=== PATIENT | male | born 1950 | race Caucasian/White ===

== ENCOUNTER → 2017-06-16 13:30 | Outpatient (CLI) | payer MEDICARE, OTHER, SELFPAY | PROVIDERS: Family Provider Surgery; Visit Provider Surgery | DX: Z45.2 Encounter for adjustment and management of vascular access device (principal); E11.621 Type 2 diabetes mellitus with foot ulcer; L97.413 Non-pressure chronic ulcer of right heel and midfoot with necrosis of muscle; Z87.828 Personal history of other (healed) physical injury and trauma; G82.50 Quadriplegia, unspecified; G47.33 Obstructive sleep apnea (adult) (pediatric); I10 Essential (primary) hypertension; Z87.440 Personal history of urinary (tract) infections; Z86.14 Personal history of Methicillin resistant Staphylococcus aureus infection; M86.68 Other chronic osteomyelitis, other site; Z79.899 Other long term (current) drug therapy | CPT/HCPCS: 11043; 96523 ==

== ENCOUNTER 2017-06-16 14:00 | Outpatient (RCR) | payer MEDICARE, OTHER, SELFPAY ==
[2017-06-09 13:46] VITALS: BP 101/70; PULSE 66; RESP 18; TEMP 36.1; BMI 26.6
--- NOTE | 2017-06-10 14:14 | PCM.WC.HP ---
(1) Diabetic ulcer of right foot Status: Acute Current Visit: Yes Qualifiers: Diabetic foot ulcer location: heel Diabetes mellitus type: type 2 Non-pressure ulcer stage: with muscle involvement without evidence of necrosis Qualified Code(s): E11.621 - Type 2 diabetes mellitus with foot ulcer; L97.415 - Non-pressure chronic ulcer of right heel and midfoot with muscle involvement without evidence of necrosis Code(s): E11.621 - Type 2 diabetes mellitus with foot ulcer; L97.519 - Non-pressure chronic ulcer of other part of right foot with unspecified severity (2) Suspected deep tissue injury of unknown depth of heel Status: Acute Current Visit: Yes Code(s): R68.89 - Other general symptoms and signs (3) History of spinal cord injury Status: Acute Current Visit: Yes Code(s): Z87.828 - Personal history of other (healed) physical injury and trauma (4) Chronic incomplete quadriplegia Status: Acute Current Visit: Yes Code(s): G82.50 - Quadriplegia, unspecified (5) Diabetes mellitus Status: Acute Current Visit: Yes Qualifiers: Diabetes mellitus type: type 2 Code(s): E11.9 - Type 2 diabetes mellitus without complications Comment: diet control, new diagnosis (6) KAROLINA treated with BiPAP Status: Acute Current Visit: No Code(s): G47.33 - Obstructive sleep apnea (adult) (pediatric) (7) History of methicillin resistant Staphylococcus aureus infection Status: Chronic Current Visit: Yes Code(s): Z86.14 - Personal history of Methicillin resistant Staphylococcus aureus infection Comment: Z86.14 (8) Hypertension Status: Chronic Current Visit: No Code(s): I10 - Essential (primary) hypertension (9) Obesity Status: Chronic Current Visit: Yes Code(s): E66.9 - Obesity, unspecified History of Present Illness Date of Service: 06/09/17 Chief Complaint: Ulcer on right heel, purple area left heel History of Wound: This is a 67-year-old white male who presents to the wound care center today for evaluation of a right heel ulcer and left heel discoloration. He has a past medical history as described above. The patient states that on the night of 06/06/2017, his heel protectors came off all night in bed and shortly after he noted an ulceration on his right heel and a purplish discoloration on his left heel. He states that there has been yellow drainage coming from his right heel and that yesterday he started using Granulex and Aquacel silver on the right heel. He denies any pain or foul-smelling discharge, however he does state that he has decreased sensation to his lower extremities due to his history of a spinal cord injury in high school. He currently has a suprapubic catheter as well due to his history of recurrent UTIs and obstructive uropathy. He also notes that his low air loss hospital bed is needing to be repaired so he is unable to use this at this time. The patient does state that he has a history of ulcerations on his right heel in the past where he had to be seen at a wound care center and ended up needing to have skin substitutes applied. He does note that he lives home alone and that he receives home health throughout the week. He otherwise denies any signs of systemic infection and denies any fever, chills, nausea, vomiting, chest pain or pressure, syncope or presyncopal episodes. 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) L89.324 recurrent left ischial/trochanteric pressure sore, Stage IV Other chronic osteomyelitis, other site (Chronic) M86.68 History of methicillin resistant Staphylococcus aureus infection (Chronic) Z86.14 Mild protein-calorie malnutrition (Chronic) malnutrition, mild, unspecified Non-pressure chronic ulcer of buttock (Chronic) nonhealing ulcer left perianal area after a myocutaneous flap 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) nonhealing ulcer left trochanteric area after a myocutaneous flap Surgical History: TURP, - - Urethral stent, diverting colostomy (1999), cervical spinal fusion (1966), plastic surgery for pressure ulceration left trochanteric area Allergies/Adverse Reactions: Allergies Penicillins Allergy (Verified 11/22/16 19:04) Hives pentazocine lactate [From Talwin] Adverse Reaction (Unknown, Verified 11/22/16 19:04) Other loopy bethanechol chloride [From Urecholine] Adverse Reaction (Verified 11/22/16 19:04) Other bladder clamped down had opposite reaction of what was expected fish derived Adverse Reaction (Verified 11/22/16 19:04) Nausea SEAFOOD Adverse Reaction (Uncoded 11/22/16 19:05) Vomiting Home Medications: Ambulatory Orders Medication Instructions Recorded Multivitamins,Therapeutic 1 tablet PO DAILY 02/04/14 [Multivitamin] Albuterol Aerosols [Ventolin 2.5 mg INHALATION Q4H PRN PRN 07/02/14 Aerosols] Cholecalciferol (VIT D3) [Vitamin 1,000 unit PO DAILY 07/02/14 D3] Hydrochlorothiazide [Hctz] 25 mg PO DAILY 07/02/14 Ascorbic Acid [Vitamin C] 1,000 mg PO DAILY 07/09/14 Acetaminophen [Tylenol] 1,000 mg PO Q8H PRN PRN #0 tablet 12/23/14 Baclofen [Lioresal] 20 mg PO TID #90 tablet 12/23/14 Dextran 70/He-Cell [Tears 1 drop EACH EYE Q1H PRN PRN #0 12/23/14 Naturale, Artificial Tears] bottle Oxybutynin [Ditropan] 10 mg PO DAILY PRN PRN 03/18/16 Granulex 1 spray TOPICAL PRN PRN 06/04/16 Insulin Aspart [Novolog Flexpen] 0 units SC 06/04/16 Sodium Chloride 0.65% [[place] Nasal 2 spray NASAL DAILY PRN PRN 06/04/16 [place]] Guaifenesin [Mucinex] 1,200 mg PO BID PRN 07/27/16 Potassium Chloride [K-Dur] 20 meq PO DAILYCM 07/27/16 Oxycodone [Oxyir] 5 mg PO 4X/DAY PRN PRN #40 tablet 08/12/16 Bee Pollen 550 mg PO DAILY 11/22/16 Bifidobacterium Infantis [Align] 4 mg PO DAILY 11/22/16 Clonidine HCl [Catapres] 0.1 mg PO BID PRN 11/22/16 Cranberry Conc/Ascorbic Acid 1 each PO DAILY 11/22/16 [Cranberry 6,000 mg Softgel] Loratadine [Claritin] 10 mg PO DAILY 11/22/16 Promethazine HCl 25 mg PO Q4H PRN PRN 11/22/16 - Family History Paternal No pertinent history Maternal No pertinent history Lives: Alone Smoking Status: Never smoker Review of Systems Constitutional: Denies: Chills, Fever, Weight Change Eyes: Denies: Pain, Vision Change HEENT: Denies: Difficulty Hearing, Difficulty Swallowing, Sinus Congestion Cardiovascular: Denies: Chest Pain, Palpitations Respiratory: Denies: Cough, Shortness of Breath Gastrointestinal: Denies: Diarrhea, Nausea, Vomiting Genitourinary: Reports: Retention, - - Suprapubic catheter Musculoskeletal: Reports: - - Muscle weakness bilateral upper and lower extremities Skin: Reports: Wounds - Bilateral heels see HPI Endocrine: Denies: Heat/ Cold Intolerance, Polydipsia, Polyuria Hematologic/ Lymphatic: Denies: Easy Bruising, Easy Bleeding - Physical Exam Vital Signs Temp Pulse Resp BP 97 F L 66 18 101/70 06/09/17 13:46 06/09/17 13:46 06/09/17 13:46 06/09/17 13:46 General: Alert, Oriented x3, Cooperative, No apparent distress HEENT: PERRLA, EOMI Lungs: Clear to auscultation Cardiovascular: Regular rate, Regular Rhythm, No murmurs, No rub noted, No Gallop Abdomen: Soft, Non Tender Extremities: No clubbing, No cyanosis, No edema, Capillary Refill Less than 3 Seconds, Diminished Peripheral Pulses Skin: Ulcer/ Wound - ulceration present right heel with moderate amount of slough and macerated edges around the wound bed, left heel small purple area that blanches Wound Measurements and Assessment - Nurse 1 - General Ulcer Measurement Start: 06/09/17 13:34 Freq: Status: Active Protocol: Activity Type Activity Date Activity User E-Sign Co-Sign Detail Recorded Client Recorded Date Recorded By Document 06/09/17 13:46 [facility] [id number] 06/09/17 13:57 [facility] 06/09/17 13:46 Wound Center Nurse 1 [Ulcer Assessment Protocol: CHANTELLE.WD.LOC] #11- RT HEEL -Combined with other wound No -Current Size (cm) - Length 2.7 -Current Size (cm) - Width 3.1 -Current Size (cm) - Depth 0.1 -Total Square Cm 8.37 -Date of Last Picture (Recall this 06/09/17 field) -Photo Taken Yes -Epithelialization None Present -Tunneling No -Undermining/Tunneling No -Exudate Amt Medium (34-66%) -Exudate Type Purulent -Wound Margin Distinct, Outline Attached -Granulation Amt Small (1-33%) -Granulation Quality Red -Slough/Fibrin Yes -Necrosis Amt Large (67-100%) -Necrotic Tissue Type Adherent Slough -Structure Exposed N/A -Texture (Francia-wound Skin Appearance) Scarring -Moisture (Francia-wound Skin Appearance Dry/Scaly ) -Color (Francia-wound Skin Appearance) Erythema -Temperature (Francia-wound Skin No Abnormality Appearance) (Pt Warm) -Tenderness on Palpation (Francia-wound Yes Skin Appearance) -Ulcer Cleansing Rinsed/ Irrigated with Saline -Foul Odor after Cleansing No -Anesthetic Used 4% Lidocaine Solution WC - Nurse 2 - General Ulcer CM Notes Start: 06/09/17 13:34 Freq: Status: Active Protocol: Activity Type Activity Date Activity User E-Sign Co-Sign Detail Recorded Client Recorded Date Recorded By Document 06/09/17 14:45 DV [id number] 06/09/17 14:52 DV 06/09/17 14:45 Wound Center Nurse 2 [Procedure/Treatment] -Time 14:48 -Correct Patient Yes -Correct Side, Site, Position Yes -Correct Procedure Yes -Procedure Performed Yes -Type of Procedure Debridement -Clinical Debridement Subcutaneous -Post Debridement Size (cm) - Length 3.4 -Post Debridement Size (cm) - Width 3.0 -Post Debridement Size (cm) - Depth 0.2 -Total Square Cm 10.20 -Wound/Ulcer Outcome Not Healed -Ulcer Cleansing Not Cleansed -Foul Odor after Cleansing No -Bioengineered Tissue No -Cetacaine [place] No -Bleeding Controlled with Pressure -Treatment Response Procedure Tolerated Well [See Physician Procedure note for Specifics] Pain Scale: 0-10 Numeric [Pain] -Is Patient Pain Free? Yes Debridement Note Post-Debridement Measurements/Treatment - Nurse 2 - General Ulcer CM Notes Start: 06/09/17 13:34 Freq: Status: Active Protocol: Activity Type Activity Date Activity User E-Sign Co-Sign Detail Recorded Client Recorded Date Recorded By Document 06/09/17 14:45 DV [id number] 06/09/17 14:52 DV 06/09/17 14:45 Wound Center Nurse 2 #11- RT HEEL -Time 14:48 -Correct Patient Yes -Correct Side, Site, Position Yes -Correct Procedure Yes -Procedure Performed Yes -Type of Procedure Debridement -Clinical Debridement Subcutaneous -Post Debridement Size (cm) - Length 3.4 -Post Debridement Size (cm) - Width 3.0 -Post Debridement Size (cm) - Depth 0.2 -Total Square Cm 10.20 -Wound/Ulcer Outcome Not Healed -Ulcer Cleansing Not Cleansed -Foul Odor after Cleansing No -Bioengineered Tissue No -Cetacaine [place] No -Bleeding Controlled with Pressure -Treatment Response Procedure Tolerated Well Pain Scale: 0-10 Numeric Is Patient Pain Free? Yes Wound debrided: Right DFU heel Laterality: Right Wound Grade/Stage: Lucila stage II Type of Debridement: Excisional debridement Anesthesia Used: 4% Lidocaine Solution Depth: in the subcutaneous layer Percentage of wound debrided: 100 Instrument Used: 7mm curette Tissue Removed: Macerated devitalized tissue, slough and fibrin Severity: Fat Layer Exposed - Fat layer and muscle exposed Amount of bleeding with debridement: Mild Bleeding Controlled with: Pressure Patient tolerated procedure well Assessment/Plan Active Problems Diabetic ulcer of right foot (Acute) Suspected deep tissue injury of unknown depth of heel (Acute) History of spinal cord injury (Acute) Chronic incomplete quadriplegia (Acute) Obesity (Chronic) Diabetes mellitus (Acute) diet control, new diagnosis History of methicillin resistant Staphylococcus aureus infection (Chronic) Z86.14 Assessment: DFU right heel, suspected deep tendon injury left heel Plan: The patient does have a diabetic foot ulcer Ramy stage II which she is being seen for today and evaluated at the wound care center. He also has a suspected deep tissue injury of the left heel that is not open which will continue to be monitored. A subcutaneous debridement was performed today of the right diabetic foot ulcer. Cultures were collected, baseline blood work was ordered, and vascular studies and KIMBERLEY was ordered as well. Discussed with patient the importance of offloading including the use of his heel protectors. Upon further investigation, he has been using heel protectors that he purchase in a gift shop. Prescription written for medical grade use heel protectors. Also instructed patient that it would be beneficial for him to have his low loss mattress repaired. Educated on the importance of nutrition and blood sugar control on his wound healing. Aquacel silver daily dressings ordered. Given his previous history of right heel diabetic foot ulcer and the need for skin substitutes, may need to consider this in the future. Myrna disclaimer Code Visit Office Visits / Consults: [id number] OV L4 Est [id number]: [id number] Char subq tissue 20 sq cm/<
--- NOTE | 2017-06-10 15:02 | HP.PCM_ITS ---
(1) Diabetic ulcer of right foot Status: Acute Current Visit: Yes Qualifiers: Diabetic foot ulcer location: heel Diabetes mellitus type: type 2 Non- pressure ulcer stage: with muscle involvement without evidence of necrosis Qualified Code(s): E11.621 - Type 2 diabetes mellitus with foot ulcer; L97.415 - Non-pressure chronic ulcer of right heel and midfoot with muscle involvement without evidence of necrosis Code(s): E11.621 - Type 2 diabetes mellitus with foot ulcer; L97.519 - Non- pressure chronic ulcer of other part of right foot with unspecified severity (2) Suspected deep tissue injury of unknown depth of heel Status: Acute Current Visit: Yes Code(s): R68.89 - Other general symptoms and signs (3) History of spinal cord injury Status: Acute Current Visit: Yes Code(s): Z87.828 - Personal history of other (healed) physical injury and trauma (4) Chronic incomplete quadriplegia Status: Acute Current Visit: Yes Code(s): G82.50 - Quadriplegia, unspecified (5) Diabetes mellitus Status: Acute Current Visit: Yes Qualifiers: Diabetes mellitus type: type 2 Code(s): E11.9 - Type 2 diabetes mellitus without complications Comment: diet control, new diagnosis (6) KAROLINA treated with BiPAP Status: Acute Current Visit: No Code(s): G47.33 - Obstructive sleep apnea ( adult) (pediatric) (7) History of methicillin resistant Staphylococcus aureus infection Status: Chronic Current Visit: Yes Code(s): Z86.14 - Personal history of Methicillin resistant Staphylococcus aureus infection Comment: Z86.14 (8) Hypertension Status: Chronic Current Visit: No Code(s): I10 - Essential (primary) hypertension (9) Obesity Status: Chronic Current Visit: Yes Code(s): E66.9 - Obesity, unspecified History of Present Illness Date of Service: 06/09/17 Chief Complaint: Ulcer on right heel, purple area left heel History of Wound: This is a 67-year-old white male who presents to the wound care center today for evaluation of a right heel ulcer and left heel discoloration. He has a past medical history as described above. The patient states that on the night of 06/06/2017, his heel protectors came off all night in bed and shortly after he noted an ulceration on his right heel and a purplish discoloration on his left heel. He states that there has been yellow drainage coming from his right heel and that yesterday he started using Granulex and Aquacel silver on the right heel. He denies any pain or foul- smelling discharge, however he does state that he has decreased sensation to his lower extremities due to his history of a spinal cord injury in high school. He currently has a suprapubic catheter as well due to his history of recurrent UTIs and obstructive uropathy. He also notes that his low air loss hospital bed is needing to be repaired so he is unable to use this at this time. The patient does state that he has a history of ulcerations on his right heel in the past where he had to be seen at a wound care center and ended up needing to have skin substitutes applied. He does note that he lives home alone and that he receives home health throughout the week. He otherwise denies any signs of systemic infection and denies any fever, chills, nausea, vomiting, chest pain or pressure, syncope or presyncopal episodes. 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) L89.324 recurrent left ischial/trochanteric pressure sore, Stage IV Other chronic osteomyelitis, other site (Chronic) M86.68 History of methicillin resistant Staphylococcus aureus infection (Chronic) Z86.14 Mild protein-calorie malnutrition (Chronic) malnutrition, mild, unspecified Non-pressure chronic ulcer of buttock (Chronic) nonhealing ulcer left perianal area after a myocutaneous flap 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) nonhealing ulcer left trochanteric area after a myocutaneous flap Surgical History: TURP, - - Urethral stent, diverting colostomy (1999), cervical spinal fusion (1966), plastic surgery for pressure ulceration left trochanteric area Allergies/Adverse Reactions: Allergies Penicillins Allergy (Verified 11/22/16 19:04) Hives pentazocine lactate [From [place]] Adverse Reaction (Unknown, Verified 11/22/16 19:04) Other loopy bethanechol chloride [From Urecholine] Adverse Reaction (Verified 11/22/16 19:04 ) Other bladder clamped down had opposite reaction of what was expected fish derived Adverse Reaction (Verified 11/22/16 19:04) Nausea SEAFOOD Adverse Reaction (Uncoded 11/22/16 19:05) Vomiting Home Medications: Ambulatory Orders Medication Instructions Recorded Multivitamins,Therapeutic 1 tablet PO DAILY 02/04/14 [Multivitamin] Albuterol Aerosols [Ventolin 2.5 mg INHALATION Q4H PRN PRN 07/02/14 Aerosols] Cholecalciferol (VIT D3) [Vitamin 1,000 unit PO DAILY 07/02/14 D3] Hydrochlorothiazide [Hctz] 25 mg PO DAILY 07/02/14 Ascorbic Acid [Vitamin C] 1,000 mg PO DAILY 07/09/14 Acetaminophen [Tylenol] 1,000 mg PO Q8H PRN PRN #0 tablet 12/23/14 Baclofen [Lioresal] 20 mg PO TID #90 tablet 12/23/14 Dextran 70/He-Cell [Tears 1 drop EACH EYE Q1H PRN PRN #0 12/23/14 Naturale, Artificial Tears] bottle Oxybutynin [Ditropan] 10 mg PO DAILY PRN PRN 03/18/16 Granulex 1 spray TOPICAL PRN PRN 06/04/16 Insulin Aspart [Novolog Flexpen] 0 units SC 06/04/16 Sodium Chloride 0.65% [[place] Nasal 2 spray NASAL DAILY PRN PRN 06/04/16 [place]] Guaifenesin [Mucinex] 1,200 mg PO BID PRN 07/27/16 Potassium Chloride [K-Dur] 20 meq PO DAILYCM 07/27/16 Oxycodone [Oxyir] 5 mg PO 4X/DAY PRN PRN #40 tablet 08/12/16 Bee Pollen 550 mg PO DAILY 11/22/16 Bifidobacterium Infantis [Align] 4 mg PO DAILY 11/22/16 Clonidine HCl [Catapres] 0.1 mg PO BID PRN 11/22/16 Cranberry Conc/Ascorbic Acid 1 each PO DAILY 11/22/16 [Cranberry 6,000 mg Softgel] Loratadine [Claritin] 10 mg PO DAILY 11/22/16 Promethazine HCl 25 mg PO Q4H PRN PRN 11/22/16 - Family History Paternal No pertinent history Maternal No pertinent history Lives: Alone Smoking Status: Never smoker Review of Systems Constitutional: Denies: Chills, Fever, Weight Change Eyes: Denies: Pain, Vision Change HEENT: Denies: Difficulty Hearing, Difficulty Swallowing, Sinus Congestion Cardiovascular: Denies: Chest Pain, Palpitations Respiratory: Denies: Cough, Shortness of Breath Gastrointestinal: Denies: Diarrhea, Nausea, Vomiting Genitourinary: Reports: Retention, - - Suprapubic catheter Musculoskeletal: Reports: - - Muscle weakness bilateral upper and lower extremities Skin: Reports: Wounds - Bilateral heels see HPI Endocrine: Denies: Heat/ Cold Intolerance, Polydipsia, Polyuria Hematologic/ Lymphatic: Denies: Easy Bruising, Easy Bleeding - Physical Exam Vital Signs Temp Pulse Resp BP 97 F L 66 18 101/70 06/09/17 13:46 06/09/17 13:46 06/09/17 13:46 06/09/17 13:46 General: Alert, Oriented x3, Cooperative, No apparent distress HEENT: PERRLA, EOMI Lungs: Clear to auscultation Cardiovascular: Regular rate, Regular Rhythm, No murmurs, No rub noted, No Gallop Abdomen: Soft, Non Tender Extremities: No clubbing, No cyanosis, No edema, Capillary Refill Less than 3 Seconds, Diminished Peripheral Pulses Skin: Ulcer/ Wound - ulceration present right heel with moderate amount of slough and macerated edges around the wound bed, left heel small purple area that blanches Wound Measurements and Assessment - Nurse 1 - General Ulcer Measurement Start: 06/09/17 13:34 Freq: Status: Active Protocol: Activity Type Activity Date Activity User E-Sign Co-Sign Detail Recorded Client Recorded Date Recorded By Document 06/09/17 13:46 [facility] [id number] 06/09/17 13:57 [facility] 06/09/17 13:46 Wound Center Nurse 1 [Ulcer Assessment Protocol: CHANTELLE.WD.LOC] #11- RT HEEL -Combined with other wound No -Current Size (cm) - Length 2.7 -Current Size (cm) - Width 3.1 -Current Size (cm) - Depth 0.1 -Total Square Cm 8.37 -Date of Last Picture (Recall this 06/09/17 field) -Photo Taken Yes -Epithelialization None Present -Tunneling No -Undermining/Tunneling No -Exudate Amt Medium (34-66%) -Exudate Type Purulent -Wound Margin Distinct, Outline Attached -Granulation Amt Small (1-33%) -Granulation Quality Red -Slough/Fibrin Yes -Necrosis Amt Large (67-100%) -Necrotic Tissue Type Adherent Slough -Structure Exposed N/A -Texture (Francia-wound Skin Appearance) Scarring -Moisture (Francia-wound Skin Appearance Dry/Scaly ) -Color (Francia-wound Skin Appearance) Erythema -Temperature (Francia-wound Skin No Abnormality Appearance) (Pt Warm) -Tenderness on Palpation (Francia-wound Yes Skin Appearance) -Ulcer Cleansing Rinsed/ Irrigated with Saline -Foul Odor after Cleansing No -Anesthetic Used 4% Lidocaine Solution WC - Nurse 2 - General Ulcer CM Notes Start: 06/09/17 13:34 Freq: Status: Active Protocol: Activity Type Activity Date Activity User E-Sign Co-Sign Detail Recorded Client Recorded Date Recorded By Document 06/09/17 14:45 DV [id number] 06/09/17 14:52 DV 06/09/17 14:45 Wound Center Nurse 2 [Procedure/Treatment] -Time 14:48 -Correct Patient Yes -Correct Side, Site, Position Yes -Correct Procedure Yes -Procedure Performed Yes -Type of Procedure Debridement -Clinical Debridement Subcutaneous -Post Debridement Size (cm) - Length 3.4 -Post Debridement Size (cm) - Width 3.0 -Post Debridement Size (cm) - Depth 0.2 -Total Square Cm 10.20 -Wound/Ulcer Outcome Not Healed -Ulcer Cleansing Not Cleansed -Foul Odor after Cleansing No -Bioengineered Tissue No -Cetacaine [place] No -Bleeding Controlled with Pressure -Treatment Response Procedure Tolerated Well [See Physician Procedure note for Specifics] Pain Scale: 0-10 Numeric [Pain] -Is Patient Pain Free? Yes Debridement Note Post-Debridement Measurements/Treatment - Nurse 2 - General Ulcer CM Notes Start: 06/09/17 13:34 Freq: Status: Active Protocol: Activity Type Activity Date Activity User E-Sign Co-Sign Detail Recorded Client Recorded Date Recorded By Document 06/09/17 14:45 DV [id number] 06/09/17 14:52 DV 06/09/17 14:45 Wound Center Nurse 2 #11- RT HEEL -Time 14:48 -Correct Patient Yes -Correct Side, Site, Position Yes -Correct Procedure Yes -Procedure Performed Yes -Type of Procedure Debridement -Clinical Debridement Subcutaneous -Post Debridement Size (cm) - Length 3.4 -Post Debridement Size (cm) - Width 3.0 -Post Debridement Size (cm) - Depth 0.2 -Total Square Cm 10.20 -Wound/Ulcer Outcome Not Healed -Ulcer Cleansing Not Cleansed -Foul Odor after Cleansing No -Bioengineered Tissue No -Cetacaine [place] No -Bleeding Controlled with Pressure -Treatment Response Procedure Tolerated Well Pain Scale: 0-10 Numeric Is Patient Pain Free? Yes Wound debrided: Right DFU heel Laterality: Right Wound Grade/Stage: Lucila stage II Type of Debridement: Excisional debridement Anesthesia Used: 4% Lidocaine Solution Depth: in the subcutaneous layer Percentage of wound debrided: 100 Instrument Used: 7mm curette Tissue Removed: Macerated devitalized tissue, slough and fibrin Severity: Fat Layer Exposed - Fat layer and muscle exposed Amount of bleeding with debridement: Mild Bleeding Controlled with: Pressure Patient tolerated procedure well Assessment/Plan Active Problems Diabetic ulcer of right foot (Acute) Suspected deep tissue injury of unknown depth of heel (Acute) History of spinal cord injury (Acute) Chronic incomplete quadriplegia (Acute) Obesity (Chronic) Diabetes mellitus (Acute) diet control, new diagnosis History of methicillin resistant Staphylococcus aureus infection (Chronic) Z86.14 Assessment: DFU right heel, suspected deep tendon injury left heel Plan: The patient does have a diabetic foot ulcer Ramy stage II which she is being seen for today and evaluated at the wound care center. He also has a suspected deep tissue injury of the left heel that is not open which will continue to be monitored. A subcutaneous debridement was performed today of the right diabetic foot ulcer. Cultures were collected, baseline blood work was ordered, and vascular studies and KIMBERLEY was ordered as well. Discussed with patient the importance of offloading including the use of his heel protectors. Upon further investigation, he has been using heel protectors that he purchase in a gift shop. Prescription written for medical grade use heel protectors. Also instructed patient that it would be beneficial for him to have his low loss mattress repaired. Educated on the importance of nutrition and blood sugar control on his wound healing. Aquacel silver daily dressings ordered. Given his previous history of right heel diabetic foot ulcer and the need for skin substitutes, may need to consider this in the future. Myrna disclaimer Code Visit Office Visits / Consults: [id number] OV L4 Est 111xxx-113xx: [id number] Char subq tissue 20 sq cm/<
[2017-06-16 14:22] VITALS: BP 147/85; PULSE 66; RESP 16; TEMP 36; BMI 26.6
--- NOTE | 2017-06-16 16:22 | PCM.WC.PN ---
(1) Diabetic ulcer of right foot Status: Acute Current Visit: Yes Qualifiers: Diabetic foot ulcer location: heel Diabetes mellitus type: type 2 Non-pressure ulcer stage: with necrosis of muscle Qualified Code(s): E11.621 - Type 2 diabetes mellitus with foot ulcer; L97.413 - Non-pressure chronic ulcer of right heel and midfoot with necrosis of muscle Code(s): E11.621 - Type 2 diabetes mellitus with foot ulcer; L97.519 - Non-pressure chronic ulcer of other part of right foot with unspecified severity Comment: Marcial stage III (2) Suspected deep tissue injury of unknown depth of heel Status: Acute Current Visit: Yes Code(s): R68.89 - Other general symptoms and signs (3) History of spinal cord injury Status: Acute Current Visit: Yes Code(s): Z87.828 - Personal history of other (healed) physical injury and trauma (4) Chronic incomplete quadriplegia Status: Acute Current Visit: Yes Code(s): G82.50 - Quadriplegia, unspecified (5) Diabetes mellitus Status: Acute Current Visit: Yes Qualifiers: Diabetes mellitus type: type 2 Code(s): E11.9 - Type 2 diabetes mellitus without complications Comment: diet control, new diagnosis (6) KAROLINA treated with BiPAP Status: Acute Current Visit: No Code(s): G47.33 - Obstructive sleep apnea (adult) (pediatric) (7) History of methicillin resistant Staphylococcus aureus infection Status: Chronic Current Visit: Yes Code(s): Z86.14 - Personal history of Methicillin resistant Staphylococcus aureus infection Comment: Z86.14 (8) Hypertension Status: Chronic Current Visit: No Code(s): I10 - Essential (primary) hypertension (9) Obesity Status: Chronic Current Visit: Yes Code(s): E66.9 - Obesity, unspecified Type of Wound Date of Service: 06/16/17 Chief Complaint: Ulcer on right heel, purple area left heel History of Wound: This is a 67-year-old white male who presents to the wound care center today for evaluation of a right heel ulcer and left heel discoloration. He has a past medical history as described above. The patient states that on the night of 06/06/2017, his heel protectors came off all night in bed and shortly after he noted an ulceration on his right heel and a purplish discoloration on his left heel. He states that there has been yellow drainage coming from his right heel and that yesterday he started using Granulex and Aquacel silver on the right heel. He denies any pain or foul-smelling discharge, however he does state that he has decreased sensation to his lower extremities due to his history of a spinal cord injury in high school. He currently has a suprapubic catheter as well due to his history of recurrent UTIs and obstructive uropathy. He also notes that his low air loss hospital bed is needing to be repaired so he is unable to use this at this time. The patient does state that he has a history of ulcerations on his right heel in the past where he had to be seen at a wound care center and ended up needing to have skin substitutes applied. He does note that he lives home alone and that he receives home health throughout the week. He otherwise denies any signs of systemic infection and denies any fever, chills, nausea, vomiting, chest pain or pressure, syncope or presyncopal episodes. Progress of Wound: Stable, no foul-smelling discharge or exudate at this time. Covered with slough and eschar prior to debridement - Physical Exam Vital Signs Temp Pulse Resp BP 96.8 F L 66 16 147/85 H 06/16/17 14:22 06/16/17 14:22 06/16/17 14:22 06/16/17 14:22 General: Alert, Oriented x3, Cooperative, No apparent distress Cardiovascular: Regular rate Extremities: No clubbing, No cyanosis, No edema, Diminished Peripheral Pulses Skin: Ulcer/ Wound - Prior to debridement, and slough and eschar, post debridement eschar removed and tendon exposed, no obvious signs of infection at this time. Wound Measurements and Assessment - Nurse 1 - General Ulcer Measurement Start: 06/09/17 13:34 Freq: Status: Active Protocol: Activity Type Activity Date Activity User E-Sign Co-Sign Detail Recorded Client Recorded Date Recorded By Document 06/16/17 14:22 RB [id number] 06/16/17 14:24 RB 06/16/17 14:22 Wound Center Nurse 1 [Ulcer Assessment Protocol: CHANTELLE.WD.LOC] #11- RT HEEL -Combined with other wound No -Current Size (cm) - Length 2.5 -Current Size (cm) - Width 2.4 -Current Size (cm) - Depth 0.1 -Total Square Cm 6.00 -Photo Taken No -Tunneling No -Undermining/Tunneling No -Circular Undermining No -Classification - Thickness Full Thickness without Exposed Support Structure -Exudate Amt Small (1-33%) -Exudate Type Serosanguineous -Wound Margin Distinct, Outline Attached -Granulation Amt Small (1-33%) -Granulation Quality [place] -Slough/Fibrin Yes -Necrosis Amt Large (67-100%) -Necrotic Tissue Type Eschar -Structure Exposed N/A -Texture (Francia-wound Skin Appearance) Assessed -Moisture (Francia-wound Skin Appearance Assessed ) -Color (Francia-wound Skin Appearance) Erythema -Temperature (Francia-wound Skin No Abnormality Appearance) (Pt Warm) -Tenderness on Palpation (Francia-wound No Skin Appearance) -Ulcer Cleansing Rinsed/ Irrigated with Saline -Foul Odor after Cleansing No -Anesthetic Used 5% Lidocaine Gel Psych/Mental Status: Normal Affect, Appropriate Debridement Note Post-Debridement Measurements/Treatment WC - Nurse 2 - General Ulcer CM Notes Start: 06/09/17 13:34 Freq: Status: Active Protocol: Activity Type Activity Date Activity User E-Sign Co-Sign Detail Recorded Client Recorded Date Recorded By Document 06/09/17 14:45 DV [id number] 06/09/17 14:52 DV 06/09/17 14:45 Wound Center Nurse 2 #11- RT HEEL -Time 14:48 -Correct Patient Yes -Correct Side, Site, Position Yes -Correct Procedure Yes -Procedure Performed Yes -Type of Procedure Debridement -Clinical Debridement Subcutaneous -Post Debridement Size (cm) - Length 3.4 -Post Debridement Size (cm) - Width 3.0 -Post Debridement Size (cm) - Depth 0.2 -Total Square Cm 10.20 -Wound/Ulcer Outcome Not Healed -Ulcer Cleansing Not Cleansed -Foul Odor after Cleansing No -Bioengineered Tissue No -Cetacaine [place] No -Bleeding Controlled with Pressure -Treatment Response Procedure Tolerated Well Pain Scale: 0-10 Numeric Is Patient Pain Free? Yes Wound debrided: Right DFU Laterality: Right Wound Grade/Stage: Ramy stage III Type of Debridement: Excisional debridement Anesthesia Used: 4% Lidocaine Solution Depth: in the subcutaneous layer, to muscle Percentage of wound debrided: 100 Instrument Used: 5mm curette Tissue Removed: Moderate amount of slough and eschar removed, tendon exposed Severity: Necrosis of Muscle Amount of bleeding with debridement: Mild Bleeding Controlled with: Pressure Patient tolerated procedure well Assessment/Plan Active Problems Diabetic ulcer of right foot (Acute) Marcial stage III Suspected deep tissue injury of unknown depth of heel (Acute) History of spinal cord injury (Acute) Chronic incomplete quadriplegia (Acute) Obesity (Chronic) Diabetes mellitus (Acute) diet control, new diagnosis History of methicillin resistant Staphylococcus aureus infection (Chronic) Z86.14 Assessment: DFU right heel, suspected deep tendon injury left heel Plan: The patient does have a diabetic foot ulcer Ramy stage III which he is being seen for today and evaluated at the wound care center. He also has a suspected deep tissue injury of the left heel that is not open which will continue to be monitored. A muscular debridement was performed today of the right diabetic foot ulcer and tendon was exposed. Cultures were reviewed which were positive for rare Proteus mirabilis, enterococcus, and anaerobic cocci. Baseline blood work was ordered and reviewed, and vascular studies and KIMBERLEY pending as well. Discussed with patient the importance of offloading including the use of his heel protectors, which he has not picked up yet. Prescription written for medical grade use heel protectors previously. Also instructed patient that it would be beneficial for him to have his low loss mattress repaired. Educated on the importance of nutrition and blood sugar control on his wound healing. Nataly dressings ordered. Given his previous history of osteomyelitis, an x-ray of the foot was ordered as well. Patient to follow-up in 1 week. Myrna disclaimer Code Visit 111xxx-113xx: [id number] Char musc/fascia 20 sq cm/<
--- NOTE | 2017-06-17 16:36 | PN.PCM_ITS ---
(1) Diabetic ulcer of right foot Status: Acute Current Visit: Yes Qualifiers: Diabetic foot ulcer location: heel Diabetes mellitus type: type 2 Non- pressure ulcer stage: with necrosis of muscle Qualified Code(s): E11.621 - Type 2 diabetes mellitus with foot ulcer; L97.413 - Non-pressure chronic ulcer of right heel and midfoot with necrosis of muscle Code(s): E11.621 - Type 2 diabetes mellitus with foot ulcer; L97.519 - Non- pressure chronic ulcer of other part of right foot with unspecified severity Comment: Marcial stage III (2) Suspected deep tissue injury of unknown depth of heel Status: Acute Current Visit: Yes Code(s): R68.89 - Other general symptoms and signs (3) History of spinal cord injury Status: Acute Current Visit: Yes Code(s): Z87.828 - Personal history of other (healed) physical injury and trauma (4) Chronic incomplete quadriplegia Status: Acute Current Visit: Yes Code(s): G82.50 - Quadriplegia, unspecified (5) Diabetes mellitus Status: Acute Current Visit: Yes Qualifiers: Diabetes mellitus type: type 2 Code(s): E11.9 - Type 2 diabetes mellitus without complications Comment: diet control, new diagnosis (6) [place] treated with BiPAP Status: Acute Current Visit: No Code(s): G47.33 - Obstructive sleep apnea ( adult) (pediatric) (7) History of methicillin resistant Staphylococcus aureus infection Status: Chronic Current Visit: Yes Code(s): Z86.14 - Personal history of Methicillin resistant Staphylococcus aureus infection Comment: Z86.14 (8) Hypertension Status: Chronic Current Visit: No Code(s): I10 - Essential (primary) hypertension (9) Obesity Status: Chronic Current Visit: Yes Code(s): E66.9 - Obesity, unspecified Type of Wound Date of Service: 06/16/17 Chief Complaint: Ulcer on right heel, purple area left heel History of Wound: This is a 67-year-old white male who presents to the wound care center today for evaluation of a right heel ulcer and left heel discoloration. He has a past medical history as described above. The patient states that on the night of 06/06/2017, his heel protectors came off all night in bed and shortly after he noted an ulceration on his right heel and a purplish discoloration on his left heel. He states that there has been yellow drainage coming from his right heel and that yesterday he started using Granulex and Aquacel silver on the right heel. He denies any pain or foul- smelling discharge, however he does state that he has decreased sensation to his lower extremities due to his history of a spinal cord injury in high school. He currently has a suprapubic catheter as well due to his history of recurrent UTIs and obstructive uropathy. He also notes that his low air loss hospital bed is needing to be repaired so he is unable to use this at this time. The patient does state that he has a history of ulcerations on his right heel in the past where he had to be seen at a wound care center and ended up needing to have skin substitutes applied. He does note that he lives home alone and that he receives home health throughout the week. He otherwise denies any signs of systemic infection and denies any fever, chills, nausea, vomiting, chest pain or pressure, syncope or presyncopal episodes. Progress of Wound: Stable, no foul-smelling discharge or exudate at this time. Covered with slough and eschar prior to debridement - Physical Exam Vital Signs Temp Pulse Resp BP 96.8 F L 66 16 147/85 H 06/16/17 14:22 06/16/17 14:22 06/16/17 14:22 06/16/17 14:22 General: Alert, Oriented x3, Cooperative, No apparent distress Cardiovascular: Regular rate Extremities: No clubbing, No cyanosis, No edema, Diminished Peripheral Pulses Skin: Ulcer/ Wound - Prior to debridement, and slough and eschar, post debridement eschar removed and tendon exposed, no obvious signs of infection at this time. Wound Measurements and Assessment - Nurse 1 - General Ulcer Measurement Start: 06/09/17 13:34 Freq: Status: Active Protocol: Activity Type Activity Date Activity User E-Sign Co-Sign Detail Recorded Client Recorded Date Recorded By Document 06/16/17 14:22 RB [id number] 06/16/17 14:24 RB 06/16/17 14:22 Wound Center Nurse 1 [Ulcer Assessment Protocol: CHANTELLE.WD.LOC] #11- RT HEEL -Combined with other wound No -Current Size (cm) - Length 2.5 -Current Size (cm) - Width 2.4 -Current Size (cm) - Depth 0.1 -Total Square Cm 6.00 -Photo Taken No -Tunneling No -Undermining/Tunneling No -Circular Undermining No -Classification - Thickness Full Thickness without Exposed Support Structure -Exudate Amt Small (1-33%) -Exudate Type Serosanguineous -Wound Margin Distinct, Outline Attached -Granulation Amt Small (1-33%) -Granulation Quality [place] -Slough/Fibrin Yes -Necrosis Amt Large (67-100%) -Necrotic Tissue Type Eschar -Structure Exposed N/A -Texture (Francia-wound Skin Appearance) Assessed -Moisture (Francia-wound Skin Appearance Assessed ) -Color (Francia-wound Skin Appearance) Erythema -Temperature (Francia-wound Skin No Abnormality Appearance) (Pt Warm) -Tenderness on Palpation (Francia-wound No Skin Appearance) -Ulcer Cleansing Rinsed/ Irrigated with Saline -Foul Odor after Cleansing No -Anesthetic Used 5% Lidocaine Gel Psych/Mental Status: Normal Affect, Appropriate Debridement Note Post-Debridement Measurements/Treatment WC - Nurse 2 - General Ulcer CM Notes Start: 06/09/17 13:34 Freq: Status: Active Protocol: Activity Type Activity Date Activity User E-Sign Co-Sign Detail Recorded Client Recorded Date Recorded By Document 06/09/17 14:45 DV [id number] 06/09/17 14:52 DV 06/09/17 14:45 Wound Center Nurse 2 #11- RT HEEL -Time 14:48 -Correct Patient Yes -Correct Side, Site, Position Yes -Correct Procedure Yes -Procedure Performed Yes -Type of Procedure Debridement -Clinical Debridement Subcutaneous -Post Debridement Size (cm) - Length 3.4 -Post Debridement Size (cm) - Width 3.0 -Post Debridement Size (cm) - Depth 0.2 -Total Square Cm 10.20 -Wound/Ulcer Outcome Not Healed -Ulcer Cleansing Not Cleansed -Foul Odor after Cleansing No -Bioengineered Tissue No -Cetacaine [place] No -Bleeding Controlled with Pressure -Treatment Response Procedure Tolerated Well Pain Scale: 0-10 Numeric Is Patient Pain Free? Yes Wound debrided: Right DFU Laterality: Right Wound Grade/Stage: Ramy stage III Type of Debridement: Excisional debridement Anesthesia Used: 4% Lidocaine Solution Depth: in the subcutaneous layer, to muscle Percentage of wound debrided: 100 Instrument Used: 5mm curette Tissue Removed: Moderate amount of slough and eschar removed, tendon exposed Severity: Necrosis of Muscle Amount of bleeding with debridement: Mild Bleeding Controlled with: Pressure Patient tolerated procedure well Assessment/Plan Active Problems Diabetic ulcer of right foot (Acute) Marcial stage III Suspected deep tissue injury of unknown depth of heel (Acute) History of spinal cord injury (Acute) Chronic incomplete quadriplegia (Acute) Obesity (Chronic) Diabetes mellitus (Acute) diet control, new diagnosis History of methicillin resistant Staphylococcus aureus infection (Chronic) Z86.14 Assessment: DFU right heel, suspected deep tendon injury left heel Plan: The patient does have a diabetic foot ulcer Ramy stage III which he is being seen for today and evaluated at the wound care center. He also has a suspected deep tissue injury of the left heel that is not open which will continue to be monitored. A muscular debridement was performed today of the right diabetic foot ulcer and tendon was exposed. Cultures were reviewed which were positive for rare Proteus mirabilis, enterococcus, and anaerobic cocci. Baseline blood work was ordered and reviewed, and vascular studies and KIMBERLEY pending as well. Discussed with patient the importance of offloading including the use of his heel protectors, which he has not picked up yet. Prescription written for medical grade use heel protectors previously. Also instructed patient that it would be beneficial for him to have his low loss mattress repaired. Educated on the importance of nutrition and blood sugar control on his wound healing. Nataly dressings ordered. Given his previous history of osteomyelitis, an x-ray of the foot was ordered as well. Patient to follow-up in 1 week. Myrna disclaimer Code Visit 111xxx-113xx: 36529 Char musc/fascia 20 sq cm/<
== END 2017-06-22 23:59 ==
LOC: WC 14:00
PROVIDERS: Visit Provider Nurse Practitioner Family
DX: E11.621 Type 2 diabetes mellitus with foot ulcer (principal); L97.413 Non-pressure chronic ulcer of right heel and midfoot with necrosis of muscle; Z87.828 Personal history of other (healed) physical injury and trauma; G82.50 Quadriplegia, unspecified; G47.33 Obstructive sleep apnea (adult) (pediatric); I10 Essential (primary) hypertension; Z87.440 Personal history of urinary (tract) infections; Z86.14 Personal history of Methicillin resistant Staphylococcus aureus infection; M86.68 Other chronic osteomyelitis, other site; Z79.899 Other long term (current) drug therapy
CPT/HCPCS: 11042; 11043; 87070; 87075; 87077; 87186; 87205; 99213; G0463

== ENCOUNTER 2017-07-04 13:50 | Inpatient (IN) | payer MEDICARE, OTHER, SELFPAY ==
[2017-06-30 13:40] VITALS: BP 118/69
--- NOTE | 2017-07-04 13:27 | CT_ITS ---
STUDY: CT RIGHT FOOT REASON FOR EXAM: Male, 67 years old. Ulceration of the heel. The patient is quadriplegic. RADIATION DOSAGE (If Supplied By Facility): CTDIvol = ( 15.35 ) mGy, DLP = ( 388.30 ) mGycm TECHNIQUE: Thin section transaxial imaging of the foot was obtained, with sagittal and coronal reconstructed images. Individualized dose optimization techniques were used for this CT. COMPARISON: None. FINDINGS: Small calcaneal spur at the insertion of the Achilles tendon. Degenerative changes of the tarsal articulations. Osteopenia of the metatarsals. Osteoarthritis of the first metatarsophalangeal joint with mild Zohaib valgus deformity. Normal tibial and fibular sesamoid bones. Normal interphalangeal joint of the great toe. Normal phalanges of the great toe. Normal second through fifth metatarsophalangeal joints. Normal interphalangeal joints and phalanges of the lesser toes. Diffuse soft tissue swelling worse along the lateral aspect of the ankle. Overlying skin thickening. No abscess is seen. CT/Extremity Lower without Contra IMPRESSION: Soft tissue swelling. Degenerative changes. Osteopenia. Electronically Signed: Edmund Gutierrez MD at 14:20 EST Tel [phone], Service support ,
[2017-07-04 14:10] VITALS: BP 145/77; PULSE 72; RESP 16; TEMP 36.9; O2SAT 95
[2017-07-04 14:11] VITALS: PULSE 86; BMI 30.9
--- NOTE | 2017-07-04 15:35 | NURSING ---
wound photo: right heel
--- NOTE | 2017-07-04 15:36 | NURSING ---
wound photo: left heel
--- NOTE | 2017-07-04 16:10 | PCM.HP.STD ---
Problem List (1) Diabetic foot infection Status: Acute (2) Malfunction of indwelling urinary catheter Status: Acute (3) KAROLINA (obstructive sleep apnea) Status: Chronic (4) Obesity Status: Chronic (5) Allergic rhinitis Status: Chronic (6) Hypertension Status: Chronic (7) Quadriplegia Status: Chronic Comment: G82.50 (8) Diabetes mellitus Status: Acute Comment: diet control, new diagnosis History of Present Illness Date of Admission: 07/04/17 Chief Complaint: heel ulcer The patient is a 67 year old M been going to wound care for the past several weeks for a right heel wound. Had a culture performed on the that showed Proteus as well as staph aureus. Patient was directed for admission by Dr. Gan, of podiatry, for further antibiotics and treatment. 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 Patient does have some feeling in his lower extremities. Patient's biggest complaint is his having a clogged suprapubic catheter. This is been an ongoing issue the patient been dealing with for some time now and has been seeing different urologist for this. Patient had this catheter replaced on June 11 and it has been clogged since the . Patient still is able to urinates and but is either just incontinent or wearing a [place] catheter. [] 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) L89.324 recurrent left ischial/trochanteric pressure sore, Stage IV Other chronic osteomyelitis, other site (Chronic) M86.68 History of methicillin resistant Staphylococcus aureus infection (Chronic) Z86.14 Mild protein-calorie malnutrition (Chronic) malnutrition, mild, unspecified Non-pressure chronic ulcer of buttock (Chronic) nonhealing ulcer left perianal area after a myocutaneous flap 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) nonhealing ulcer left trochanteric area after a myocutaneous flap Allergies Penicillins Allergy (Verified 11/22/16 19:04) Hives pentazocine lactate [From Talwin] Adverse Reaction (Unknown, Verified 07/04/17 14:26) loopy loopy bethanechol chloride [From Urecholine] Adverse Reaction (Verified 07/04/17 14:26) bladder clamped down bladder clamped down had opposite reaction of what was expected fish derived Adverse Reaction (Verified 11/22/16 19:04) Nausea SEAFOOD Adverse Reaction (Uncoded 11/22/16 19:05) Vomiting Home Medications: Ambulatory Orders Medication Instructions Recorded Multivitamins,Therapeutic 1 tablet PO DAILY 02/04/14 [Multivitamin] Albuterol Aerosols [Ventolin 2.5 mg INHALATION Q4H PRN PRN 07/02/14 Aerosols] Cholecalciferol (VIT D3) [Vitamin 1,000 unit PO DAILY 07/02/14 D3] Hydrochlorothiazide [Hctz] 25 mg PO DAILY 07/02/14 Ascorbic Acid [Vitamin C] 1,000 mg PO BID 07/09/14 Acetaminophen [Tylenol] 1,000 mg PO Q8H PRN PRN #0 tablet 12/23/14 Dextran 70/He-Cell [Tears 1 drop EACH EYE Q1H PRN PRN #0 12/23/14 Naturale, Artificial Tears] bottle Oxybutynin [Ditropan] 5 mg PO TID PRN PRN 03/18/16 Insulin Aspart [Novolog Flexpen] See Protocol SC TIDCM 06/04/16 Sodium Chloride 0.65% [[place] Nasal 2 spray NASAL DAILY PRN PRN 06/04/16 Blacklick] Guaifenesin [Mucinex] 1,200 mg PO BID PRN 07/27/16 Potassium Chloride [K-Dur] 20 meq PO DAILYCM 07/27/16 Oxycodone [Oxyir] 5 mg PO 4X/DAY PRN PRN #40 tablet 08/12/16 Clonidine HCl [Catapres] 0.1 mg PO BID PRN 11/22/16 Cranberry Conc/Ascorbic Acid 4 each PO DAILY 11/22/16 [Cranberry 6,000 mg Softgel] Loratadine [Claritin] 10 mg PO DAILY PRN 11/22/16 Promethazine HCl 25 mg PO Q4H PRN PRN 11/22/16 Baclofen [Lioresal] 20 mg PO TID 07/04/17 Docusate Sodium [Colace] 100 mg PO QHS 07/04/17 Psyllium Husk [Fiber] 0.4 gm PO BID 07/04/17 Surgical History: TURP, - - Urethral stent, diverting colostomy (1999), cervical spinal fusion (1966), plastic surgery for pressure ulceration left trochanteric area, UPP Smoking Status: Never smoker Tobacco Use: Non-smoker Alcohol: None Drugs: None - *Family History Paternal History Items: Heart Disease Maternal History Items: No pertinent history Review of Systems Constitutional: Denies: Anorexia, Chills, Fever Eyes: Denies: Blurred vision, Double vision HEENT: Reports: Nasal Congestion. Denies: Head Aches, Sinus Congestion, Sinus Drainage Cardiovascular: Denies: Chest Pain, Palpitations Respiratory: Denies: Cough, Shortness of breath at rest, Sputum production Gastrointestinal: Reports: Abdominal Pain - Secondary to bladder discomfort Genitourinary: Reports: Incontinence, - - Suprapubic catheter since the eighth. Musculoskeletal: Denies: Joint Pain, Joint Tenderness Skin: Reports: Wounds Neurological: Reports: - - Incomplete quadriplegic secondary to a cervical injury 50 years ago. Psychiatric: Denies: Anxiety, Depression Hematologic/ Lymphatic: Denies: Easy Bruising, Easy Bleeding, Hx of blood clot VTE Information - Inpt Only VTE Present on Admission: No VTE Pharm Prophylaxis ordered?: Yes Patient Problems: Active and Suspected Problems Diabetic foot infection (Acute) Malfunction of indwelling urinary catheter (Acute) - Physical Exam General: Alert, Cooperative, No apparent distress, Well developed, Well nourished HEENT: Atraumatic, Normocephalic, - - No icterus Oral: Moist Mucosa, No Gingival or Mucosal Lesions/ Ulcerations Neck: No Nodes, Thyroid Normal Size and Texture Lungs: Clear to auscultation, Normal air movement, No rhonchi, No wheeze Cardiovascular: Regular rate, Regular Rhythm, Normal S1, Normal S2, No murmurs Abdomen: Bowel Sounds Present, Soft, Non Tender, Non-Distended, - - Suprapubic catheter in place. Colostomy and left lower quadrant Extremities: No edema, No Calf Tenderness Skin: - - Patient show me pictures of his heel as it is currently wrapped just prior to my arrival. Extremity ulcer involving his right heel. Given the fact there was a pitcher was unable to adequately stage the ulcer. At least be 2-3. Musculoskeletal: Cachexia, Muscle Wasting, - - Clawlike deformity of his hands Neurological: - - No clonus. Diminished reflexes in lower extremities. Psych/Mental Status: Normal Affect, Appropriate Vital Signs Temp Pulse Resp BP Pulse Ox 36.9 C 86 16 145/77 H 95 07/04/17 14:10 07/04/17 14:11 07/04/17 14:10 07/04/17 14:10 07/04/17 14:10 Oxygen Delivery Method Room Air Weight: 100.6 kg Body Mass Index (BMI) 30.9 Finger Stick Blood Glucose 135 Clinical Impression(s) from Imaging Studies Lower Extremity CT 07/04/17 13:27 IMPRESSION: Soft tissue swelling. Degenerative changes. Osteopenia. Electronically Signed: Edmund Gutierrez MD at 14:20 EST Tel [phone], Service support , Assessment/Plan Active and Suspected Problems Diabetic foot infection (Acute) Malfunction of indwelling urinary catheter (Acute) 1. right heel ulcer and infection Secondary to MSSA as well as Proteus. Will start patient on IV Unasyn plus Levaquin. Patient had a CAT scan that showed no osteomyelitis. Will also consult infectious disease plus podiatry for further input and management. 2. Suprapubic catheter malfunction It is clogged but the patient is urinating but through a [place] catheter as patient is unable to have a [place] catheter can affect these had remnants of an old stent still in his urethra and placing a Nichols catheter may rupture of the balloon at the end according to the patient. Patient has his current suprapubic catheter changed on June 11 and became occluded on June 30. Is requesting assistance with this. Told that we will consult urology here but given that we only have one urologist I told him that we cannot guarantee that they would see him why he was here in the hospital. Patient's current urologist he has yet to see this patient had been seeing Dr. Curtis prior to that. States that he feels like he is getting a urinary tract infection, so we will check a urinalysis as well as a culture on him. 3. Diabetes mellitus type 2 Continue with sliding scale and monitor blood sugars 4. Incomplete quadriplegia Complicate care but also likely etiology of his ulcers and infections more so than the diabetes. 5. DVT prophylaxis with low molecular weight heparin Advanced care planning: I spent an additional 10 minutes discussing advanced care planning with the patient. I asked him specifically in the event if he were to undergo cardiac arrest if you are to want CPR, he replies yes. I asked him if he was not able to breathe on his own if you would want to have a tubular throat and be on a machine to breathe for him, he said he would. I told him that if he was unable to swallow safely on his own would he want tube in the stomach to give him nutrition and to that he also said that he would. He did give the caveat if these were to he was a vegetative state that he may wish to have the treatment withdrawn at that point. They said that he would want those as long as he has some brain activity. Therefore, patient is full CODE STATUS. Code Visit Inpatient E&M: 27836 Init Hosp L3 Procedures: 93680 Advncd Care Plan 30 Min
--- NOTE | 2017-07-04 16:24 | HP.PCM_ITS ---
Problem List (1) Diabetic foot infection Status: Acute (2) Malfunction of indwelling urinary catheter Status: Acute (3) KAROLINA (obstructive sleep apnea) Status: Chronic (4) Obesity Status: Chronic (5) Allergic rhinitis Status: Chronic (6) Hypertension Status: Chronic (7) Quadriplegia Status: Chronic Comment: G82.50 (8) Diabetes mellitus Status: Acute Comment: diet control, new diagnosis History of Present Illness Date of Admission: 07/04/17 Chief Complaint: heel ulcer The patient is a 67 year old M been going to wound care for the past several weeks for a right heel wound. Had a culture performed on the that showed Proteus as well as staph aureus. Patient was directed for admission by Dr. Gan, of podiatry, for further antibiotics and treatment. 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 Patient does have some feeling in his lower extremities. Patient's biggest complaint is his having a clogged suprapubic catheter. This is been an ongoing issue the patient been dealing with for some time now and has been seeing different urologist for this. Patient had this catheter replaced on June 11 and it has been clogged since the . Patient still is able to urinates and but is either just incontinent or wearing a [place] catheter. [] 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) L89.324 recurrent left ischial/trochanteric pressure sore, Stage IV Other chronic osteomyelitis, other site (Chronic) M86.68 History of methicillin resistant Staphylococcus aureus infection (Chronic) Z86.14 Mild protein-calorie malnutrition (Chronic) malnutrition, mild, unspecified Non-pressure chronic ulcer of buttock (Chronic) nonhealing ulcer left perianal area after a myocutaneous flap 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) nonhealing ulcer left trochanteric area after a myocutaneous flap Allergies Penicillins Allergy (Verified 11/22/16 19:04) Hives pentazocine lactate [From Talwin] Adverse Reaction (Unknown, Verified 07/04/17 14:26) loopy loopy bethanechol chloride [From Urecholine] Adverse Reaction (Verified 07/04/17 14:26 ) bladder clamped down bladder clamped down had opposite reaction of what was expected fish derived Adverse Reaction (Verified 11/22/16 19:04) Nausea SEAFOOD Adverse Reaction (Uncoded 11/22/16 19:05) Vomiting Home Medications: Ambulatory Orders Medication Instructions Recorded Multivitamins,Therapeutic 1 tablet PO DAILY 02/04/14 [Multivitamin] Albuterol Aerosols [Ventolin 2.5 mg INHALATION Q4H PRN PRN 07/02/14 Aerosols] Cholecalciferol (VIT D3) [Vitamin 1,000 unit PO DAILY 07/02/14 D3] Hydrochlorothiazide [Hctz] 25 mg PO DAILY 07/02/14 Ascorbic Acid [Vitamin C] 1,000 mg PO BID 07/09/14 Acetaminophen [Tylenol] 1,000 mg PO Q8H PRN PRN #0 tablet 12/23/14 Dextran 70/He-Cell [Tears 1 drop EACH EYE Q1H PRN PRN #0 12/23/14 Naturale, Artificial Tears] bottle Oxybutynin [Ditropan] 5 mg PO TID PRN PRN 03/18/16 Insulin Aspart [Novolog Flexpen] See Protocol SC TIDCM 06/04/16 Sodium Chloride 0.65% [[place] Nasal 2 spray NASAL DAILY PRN PRN 06/04/16 [place]] Guaifenesin [Mucinex] 1,200 mg PO BID PRN 07/27/16 Potassium Chloride [K-Dur] 20 meq PO DAILYCM 07/27/16 Oxycodone [Oxyir] 5 mg PO 4X/DAY PRN PRN #40 tablet 08/12/16 Clonidine HCl [Catapres] 0.1 mg PO BID PRN 11/22/16 Cranberry Conc/Ascorbic Acid 4 each PO DAILY 11/22/16 [Cranberry 6,000 mg Softgel] Loratadine [Claritin] 10 mg PO DAILY PRN 11/22/16 Promethazine HCl 25 mg PO Q4H PRN PRN 11/22/16 Baclofen [Lioresal] 20 mg PO TID 07/04/17 Docusate Sodium [Colace] 100 mg PO QHS 07/04/17 Psyllium Husk [Fiber] 0.4 gm PO BID 07/04/17 Surgical History: TURP, - - Urethral stent, diverting colostomy (1999), cervical spinal fusion (1966), plastic surgery for pressure ulceration left trochanteric area, UPP Smoking Status: Never smoker Tobacco Use: Non-smoker Alcohol: None Drugs: None - *Family History Paternal History Items: Heart Disease Maternal History Items: No pertinent history Review of Systems Constitutional: Denies: Anorexia, Chills, Fever Eyes: Denies: Blurred vision, Double vision HEENT: Reports: Nasal Congestion. Denies: Head Aches, Sinus Congestion, Sinus Drainage Cardiovascular: Denies: Chest Pain, Palpitations Respiratory: Denies: Cough, Shortness of breath at rest, Sputum production Gastrointestinal: Reports: Abdominal Pain - Secondary to bladder discomfort Genitourinary: Reports: Incontinence, - - Suprapubic catheter since the eighth. Musculoskeletal: Denies: Joint Pain, Joint Tenderness Skin: Reports: Wounds Neurological: Reports: - - Incomplete quadriplegic secondary to a cervical injury 50 years ago. Psychiatric: Denies: Anxiety, Depression Hematologic/ Lymphatic: Denies: Easy Bruising, Easy Bleeding, Hx of blood clot VTE Information - Inpt Only VTE Present on Admission: No VTE Pharm Prophylaxis ordered?: Yes Patient Problems: Active and Suspected Problems Diabetic foot infection (Acute) Malfunction of indwelling urinary catheter (Acute) - Physical Exam General: Alert, Cooperative, No apparent distress, Well developed, Well nourished HEENT: Atraumatic, Normocephalic, - - No icterus Oral: Moist Mucosa, No Gingival or Mucosal Lesions/ Ulcerations Neck: No Nodes, Thyroid Normal Size and Texture Lungs: Clear to auscultation, Normal air movement, No rhonchi, No wheeze Cardiovascular: Regular rate, Regular Rhythm, Normal S1, Normal S2, No murmurs Abdomen: Bowel Sounds Present, Soft, Non Tender, Non-Distended, - - Suprapubic catheter in place. Colostomy and left lower quadrant Extremities: No edema, No Calf Tenderness Skin: - - Patient show me pictures of his heel as it is currently wrapped just prior to my arrival. Extremity ulcer involving his right heel. Given the fact there was a pitcher was unable to adequately stage the ulcer. At least be 2-3. Musculoskeletal: Cachexia, Muscle Wasting, - - Clawlike deformity of his hands Neurological: - - No clonus. Diminished reflexes in lower extremities. Psych/Mental Status: Normal Affect, Appropriate Vital Signs Temp Pulse Resp BP Pulse Ox 36.9 C 86 16 145/77 H 95 07/04/17 14:10 07/04/17 14:11 07/04/17 14:10 07/04/17 14:10 07/04/17 14:10 Oxygen Delivery Method Room Air Weight: 100.6 kg Body Mass Index (BMI) 30.9 Finger Stick Blood Glucose 135 Clinical Impression(s) from Imaging Studies Lower Extremity CT 07/04/17 13:27 IMPRESSION: Soft tissue swelling. Degenerative changes. Osteopenia. Electronically Signed: Edmund Gutierrez MD at 14:20 EST Tel [phone], Service support , Assessment/Plan Active and Suspected Problems Diabetic foot infection (Acute) Malfunction of indwelling urinary catheter (Acute) 1. right heel ulcer and infection * Secondary to MSSA as well as Proteus. * Will start patient on IV Unasyn plus Levaquin. * Patient had a CAT scan that showed no osteomyelitis. * Will also consult infectious disease plus podiatry for further input and management. 2. Suprapubic catheter malfunction * It is clogged but the patient is urinating but through a [place] catheter as patient is unable to have a [place] catheter can affect these had remnants of an old stent still in his urethra and placing a Nichols catheter may rupture of the balloon at the end according to the patient. * Patient has his current suprapubic catheter changed on June 11 and became occluded on June 30. * Is requesting assistance with this. Told that we will consult urology here but given that we only have one urologist I told him that we cannot guarantee that they would see him why he was here in the hospital. Patient's current urologist he has yet to see this patient had been seeing Dr. Curtis prior to that. * States that he feels like he is getting a urinary tract infection, so we will check a urinalysis as well as a culture on him. 3. Diabetes mellitus type 2 * Continue with sliding scale and monitor blood sugars 4. Incomplete quadriplegia * Complicate care but also likely etiology of his ulcers and infections more so than the diabetes. 5. DVT prophylaxis with low molecular weight heparin Advanced care planning: I spent an additional 10 minutes discussing advanced care planning with the patient. I asked him specifically in the event if he were to undergo cardiac arrest if you are to want CPR, he replies yes. I asked him if he was not able to breathe on his own if you would want to have a tubular throat and be on a machine to breathe for him, he said he would. I told him that if he was unable to swallow safely on his own would he want tube in the stomach to give him nutrition and to that he also said that he would. He did give the caveat if these were to he was a vegetative state that he may wish to have the treatment withdrawn at that point. They said that he would want those as long as he has some brain activity. Therefore, patient is full CODE STATUS. Code Visit Inpatient E&M: 44635 Init Hosp L3 Procedures: 45425 Advncd Care Plan 30 Min
--- NOTE | 2017-07-04 17:08 | NURSING ---
AWAITING PORT TO BE ACCESSED FOR LAB DRAWS AND TO START ANTB
--- NOTE | 2017-07-04 17:49 | NURSING ---
ICU NURSE NOW HERE TO ACCESS PORT
[2017-07-04 18:49] LABS: Mucous, Urine 0 SEEN /hpf (<or=2+); Squamous Epithelial Cells - UA 0 SEEN /hpf (0-5)
[2017-07-04 19:00] LABS: Anion Gap 9 (5-15); BUN 24 mg/dL (7-18); Calcium,Total 9.3 mg/dL (8.5-10.1); Chloride 98 mmol/L (98-107); Creatinine, Serum 0.71 mg/dL (0.70-1.30); EST Glomerular Filtration Rate 118 mL/min (>60); Est Glom Filt Rate - Afr Amer 143 mL/min (>60); Estimated Creatinine Clearance 76.35 ml/min; Glucose 147 mg/dL (74-106); Potassium 3.8 mmol/L (3.5-5.1); Sodium Level 138 mmol/L (136-145)
[2017-07-04 19:04] LABS: Color, Urine Yellow (Yellow); Glucose, Dipstick Normal (Normal); Ketone-Dipstick Negative (Negative); Leukocyte Esterase-Dipstick 500 /ul (Negative); Nitrite-Dipstick Positive (Negative); Occult Blood-Urine 150 /ul (Negative); Protein-Dipstick 15 mg/dl (Negative); Urine Bilirubin Dipstick Negative (Negative); Urine Clarity Clear (Clear); Urine Urobilinogen Normal (Normal)
[2017-07-04 19:19] LABS: Bacteria RARE /hpf (None Seen); Red Blood Cells-Urine 5-10 SEEN /hpf (0-5); White Blood Cells 25-50 SEEN /hpf (0-5)
[2017-07-04 19:31] LABS: Red Blood Count 5.64 M/mm3 (4.6-6.2); White Blood Count 12.2 K/mm3 (4.4-11.0)
[2017-07-04 19:32] LABS: Hematocrit 47.8 % (40-54); Hemoglobin 15.2 g/dl (13.0-16.5); Mean Corp Hgb Conc 31.8 g/gl (32-36); Mean Corpuscular Volume 84.8 fL (80-94); Platelet Count 200 K/mm3 (150-450); RBC Distribution Width CV 17.3 % (11.6-14.6); RBC Distribution Width SD 53.2 fl (35.1-43.9)
[2017-07-04 19:33] LABS: Absolute Lymphocyte Count 1.82 X10^3/ul (0.83-4.51); Absolute Neutrophil Count 9.4 X10^3/uL (2.0-7.7); Basophil% 0.2 % (0-1); Eosinophils% 2.1 % (0-5); Lymphocyte # 1.82 X10^3/ul (4.0); Lymphocyte % 14.9 % (19-41); Mean Platelet Vol. 10.8 fl (6.2-12.0); Monocyte% 5.4 % (0-10); Neutrophil # 9.43 X10^3/uL (2.7-7.7); Neutrophil % 77.1 % (47-70); POSITIVE COUNT NO; POSITIVE DIFFERENTIAL NO; POSITIVE MORPHOLOGY NO
[2017-07-04 19:34] LABS: Basophil# 0.02 X10^3/uL; Eosinophil# 0.26 X10^3/uL; Monocyte# 0.66 X10^3/uL
[2017-07-04 19:36] LABS: Erythrocyte Sedimentation Rate 64 mm/hr (0-20)
[2017-07-04 20:10] VITALS: BP 146/79; PULSE 71; RESP 18; TEMP 36.8; O2SAT 94
[2017-07-04] MEDS: Baclofen 10 MG Tablet 20 MG PO (21:46)
[2017-07-04] MEDS: Docusate Sodium 100 MG Capsule PO (21:46)
[2017-07-04] MEDS: Ascorbic Acid 500 MG Tablet 1000 MG PO (21:46)
[2017-07-05 02:10] VITALS: BP 99/62; PULSE 66; RESP 18; TEMP 36.6; O2SAT 95
[2017-07-05 06:14] LABS: Absolute Lymphocyte Count 1.96 X10^3/ul (0.83-4.51); Absolute Neutrophil Count 7.7 X10^3/uL (2.0-7.7); Basophil# 0.03 X10^3/uL; Basophil% 0.3 % (0-1); Eosinophil# 0.37 X10^3/uL; Eosinophils% 3.4 % (0-5); Hematocrit 44.5 % (40-54); Hemoglobin 14.2 g/dl (13.0-16.5); Lymphocyte # 1.96 X10^3/ul (4.0); Lymphocyte % 17.8 % (19-41); Mean Corp Hgb Conc 31.9 g/gl (32-36); Mean Corpuscular Hgb 26.7 pg (27.0-32.0); Mean Corpuscular Volume 83.8 fL (80-94); Mean Platelet Vol. 11.1 fl (6.2-12.0); Monocyte# 0.93 X10^3/uL; Monocyte% 8.5 % (0-10); Neutrophil # 7.66 X10^3/uL (2.7-7.7); Neutrophil % 69.5 % (47-70); Platelet Count 182 K/mm3 (150-450); RBC Distribution Width CV 17.7 % (11.6-14.6); RBC Distribution Width SD 53.6 fl (35.1-43.9); Red Blood Count 5.31 M/mm3 (4.6-6.2)
[2017-07-05 06:15] LABS: POSITIVE COUNT NO; POSITIVE DIFFERENTIAL NO; POSITIVE MORPHOLOGY NO
[2017-07-05] MEDS: Baclofen 10 MG Tablet 20 MG PO ×3 (06:20→21:52)
[2017-07-05] MEDS: 0.9% NaCl VAD Flush 10 ML IV (06:21)
[2017-07-05 06:31] LABS: Bedside Glucose 153 mg/dL (70-110)
[2017-07-05 06:41] LABS: Anion Gap 8 (5-15); BUN 22 mg/dL (7-18); Calcium,Total 8.7 mg/dL (8.5-10.1); Chloride 99 mmol/L (98-107); Creatinine, Serum 0.73 mg/dL (0.70-1.30); EST Glomerular Filtration Rate 113 mL/min (>60); Est Glom Filt Rate - Afr Amer 137 mL/min (>60); Estimated Creatinine Clearance 76.35 ml/min; Glucose 139 mg/dL (74-106); Potassium 3.5 mmol/L (3.5-5.1); Sodium Level 137 mmol/L (136-145)
[2017-07-05 08:10] VITALS: BP 103/62; PULSE 70; RESP 18; TEMP 36.4; O2SAT 95
[2017-07-05] MEDS: Multivitamins,Therapeutic Tablet 1 TABLET PO (08:46)
[2017-07-05] MEDS: Ascorbic Acid 500 MG Tablet 1000 MG PO ×2 (08:47→21:52)
[2017-07-05] MEDS: Enoxaparin 40 MG/0.4 ML Syringe SC (08:47)
[2017-07-05] MEDS: hydroCHLOROthiazide 25 MG Tablet PO (08:47)
[2017-07-05] MEDS: Psyllium 1 PACKET PO (08:47)
--- NOTE | 2017-07-05 09:54 | NS ---
Dov BID on diet order however it must be ordered via pharmacy- cannot be provided from dietary department.
--- NOTE | 2017-07-05 10:08 | PCM.PN.HOSP ---
Patient Problems: Active and Suspected Problems Diabetic foot infection (Acute) Malfunction of indwelling urinary catheter (Acute) Subjective: Feels better today. Suprapubic catheter was changed out yesterday and it has been having output but not as much as he hoped or expected. Vitals/I&O's: Vital Signs Temp Pulse Resp BP Pulse Ox 36.4 C L 70 18 103/62 95 07/05/17 08:10 07/05/17 08:10 07/05/17 08:10 07/05/17 08:10 07/05/17 08:10 Oxygen Delivery Method Room Air Weight: 100.6 kg Body Mass Index (BMI) 30.9 Finger Stick Blood Glucose 135 Intake and Output for Last 24 Hours 07/03/17 07/04/17 07/05/17 23:59 23:59 23:59 Intake Total 653 / 653 579 / 579 Output Total 800 / 800 1250 / 1250 Balance -147 / -147 -671 / -671 General: Alert, Cooperative, No apparent distress HEENT: Atraumatic, Normocephalic Neck: No Nodes, Thyroid Normal Size and Texture Lungs: Clear to auscultation, Normal air movement, No rhonchi, No wheeze Cardiovascular: Regular rate, Regular Rhythm, Normal S1, Normal S2, No murmurs Abdomen: Bowel Sounds Present, Soft, Non Tender, Non-Distended, No Hepato-splenomegaly Extremities: No edema, No Calf Tenderness Skin: No rashes, - - States 3 ulcer on the right posterior heel. No purulence expressed. Minimal serous drainage. Musculoskeletal: Cachexia, Muscle Wasting, - - Clawlike deformities of the hands Lymphatic: No Cervical, Supraclavicular, or Inguinal Adenopathy, Cervical Adenopathy Psych/Mental Status: Normal Affect, Appropriate Laboratory Results 07/04/17 16:24: Sodium 138, Potassium 3.8, Chloride 98, Carbon Dioxide 31.0, Anion Gap 9, BUN 24 H, Creatinine 0.71, Estim Creat Clear Calc 76.35, Est GFR (MDRD) Af Amer 143, Est GFR (MDRD) Non-Af 118, BUN/Creatinine Ratio 34.0 H, Glucose 147 H, Calcium 9.3 07/04/17 16:24: C-React Prot Ext Range 67.60 H 07/04/17 18:00: Urine Color Yellow, Urine Clarity Clear, Urine pH 7.0, Ur Specific Hext 1.010, Urine Protein 15 H, Urine Glucose (UA) Normal, Urine Ketones Negative, Urine Occult Blood 150 H, Urine Nitrite Positive H, Urine Bilirubin Negative, Urine Urobilinogen Normal, Ur Leukocyte Esterase 500 H, Urine RBC 5-10 SEEN, Urine WBC 25-50 SEEN, Ur Squamous Epith Cells 0 SEEN, Urine Bacteria RARE, Urine Mucus 0 SEEN 07/04/17 18:55: WBC 12.2 H, RBC 5.64, Hgb 15.2, Hct 47.8, MCV 84.8, MCH 27.0, MCHC 31.8 L, RDW 17.3 H, RDW Differential 53.2 H, Plt Count 200, MPV 10.8, Immature Gran % (Auto) 0.300, Neut % (Auto) 77.1 H, Lymph % (Auto) 14.9 L, [place] % (Auto) 5.4, Eos % (Auto) 2.1, Baso % (Auto) 0.2, Absolute Neuts (auto) 9.4 H, Absolute Lymphs (auto) 1.82, Total Counted Not Reportable 07/04/17 18:55: ESR 64 H 07/05/17 05:45: WBC 11.0, RBC 5.31, Hgb 14.2, Hct 44.5, MCV 83.8, MCH 26.7 L, MCHC 31.9 L, RDW 17.7 H, RDW Differential 53.6 H, Plt Count 182, MPV 11.1, Immature Gran % (Auto) 0.500, Neut % (Auto) 69.5, Lymph % (Auto) 17.8 L, [place] % (Auto) 8.5, Eos % (Auto) 3.4, Baso % (Auto) 0.3, Absolute Neuts (auto) 7.7, Absolute Lymphs (auto) 1.96, Total Counted Not Reportable 07/05/17 05:45: Sodium 137, Potassium 3.5, Chloride 99, Carbon Dioxide 30.0, Anion Gap 8, BUN 22 H, Creatinine 0.73, Estim Creat Clear Calc 76.35, Est GFR (MDRD) Af Amer 137, Est GFR (MDRD) Non-Af 113, BUN/Creatinine Ratio 30.0 H, Glucose 139 H, Calcium 8.7 07/05/17 06:25: POC Glucose 153 H Current Medications Acetaminophen (Tylenol) 1,000 mg PO Q8H PRN PRN PRN Reason: PAIN OR FEVER Albuterol Sulfate (Ventolin Aerosols) 2.5 mg INHALATION Q4H PRN PRN PRN Reason: BREATHING Artificial Tears (Tears Naturale, Artificial Tears) 1 drop EACH EYE Q1H PRN PRN PRN Reason: Dryness, irritation Ascorbic Acid (Vitamin C) 1,000 mg PO BID [facility] Last Admin: 07/05/17 08:47 Dose: 1,000 mg Baclofen (Lioresal) 20 mg PO TID [facility] Last Admin: 07/05/17 06:20 Dose: 20 mg Cholecalciferol (Vitamin D) 1,000 unit PO DAILY [facility] Last Admin: 07/05/17 08:47 Dose: 1,000 unit Clonidine (Catapres) 0.1 mg PO BID PRN PRN Reason: Hypertensive Emergency Docusate Sodium (Colace) 100 mg PO QHS [facility] Last Admin: 07/04/17 21:46 Dose: 100 mg Enoxaparin Sodium (Lovenox) 40 mg SC DAILY@1000 [facility] Last Admin: 07/05/17 08:47 Dose: 40 mg Guaifenesin (Mucinex) 1,200 mg PO BID PRN PRN Reason: CONGESTION Heparin Sodium (Beef Lung) (Heparin 500 Unit/5 Ml (100/Ml)) 500 unit IV UD PRN PRN Reason: HEPARIN FLUSH Hydrochlorothiazide (Hctz) 25 mg PO DAILY [facility] Last Admin: 07/05/17 08:47 Dose: 25 mg Ampicillin Sodium/Sulbactam (Sodium 3 gm/ Sodium Chloride) 112 mls @ 150 mls/hr IV Q8 [facility] Last Admin: 07/05/17 06:20 Dose: 150 mls/hr Levofloxacin (Levaquin) 750 mg in 150 mls @ 100 mls/hr IV Q24 [facility] Last Admin: 07/04/17 19:13 Dose: 100 mls/hr Insulin Aspart (Novolog Flexpen (Bkc)) 0 units SC TIDAC [facility] PRN Reason: Protocol Last Admin: 07/05/17 06:29 Dose: 2 units Loratadine (Claritin) 10 mg PO DAILY PRN PRN Reason: ALLERGIES Magnesium Hydroxide (Milk Of Magnesia) 30 ml PO DAILY PRN PRN PRN Reason: Constipation [facility] Admin: 07/05/17 08:46 Dose: 1 tablet Ondansetron HCl (Zofran) 4 mg IV Q8H PRN PRN PRN Reason: Nausea Oxybutynin Chloride (Ditropan) 5 mg PO TID PRN PRN PRN Reason: BLADDER SPASM Oxycodone HCl (Oxyir) 5 mg PO Q4H PRN PRN PRN Reason: Moderate Pain (pain scale 4-5) Potassium Chloride (K-Dur) [facility] Last Admin: 07/05/17 08:45 Dose: 20 meq Promethazine HCl (Phenergan) 25 mg PO Q4H PRN PRN PRN Reason: NAUSEA Psyllium Hydrophilic Mucilloid (Metamucil) 1 packet PO DAILY [facility] Last Admin: 07/05/17 08:47 Dose: 1 packet Sodium Chloride () 10 ml IV UD PRN PRN Reason: VAD FLUSH Last Admin: 07/05/17 06:21 Dose: 10 ml Sodium Chloride ([place] Nasal [place]) 2 spray NASAL DAILY PRN PRN PRN Reason: NASAL CONGESTION Sodium Hypochlorite (Dakins Solution 0.25% (1/2 Strength)) 1 applic TOPICAL BID [facility] PRN Reason: Protocol Assessment/Plan Active and Suspected Problems Diabetic foot infection (Acute) Malfunction of indwelling urinary catheter (Acute) 1. right heel ulcer and infection Secondary to MSSA as well as Proteus. Will start patient on IV Unasyn plus Levaquin. Patient had a CAT scan that showed no osteomyelitis. Will also consult infectious disease plus podiatry for further input and management. 2. Suprapubic catheter malfunction Changed over 07/04 It is clogged but the patient is urinating but through a [place] catheter as patient is unable to have a [place] catheter can affect these had remnants of an old stent still in his urethra and placing a [place] catheter may rupture of the balloon at the end according to the patient. Patient has his current suprapubic catheter changed on June 11 and became occluded on June 30. Follow up with Dr. Hickey as outpt 3. Diabetes mellitus type 2 Continue with sliding scale and monitor blood sugars 4. Incomplete quadriplegia Complicates care but also likely etiology of his ulcers and infections more so than the diabetes. 5. DVT prophylaxis with low molecular weight heparin 6. Code: Full Code (see note from 07/04) Code Visit Inpatient E&M: 22478 Subs Hosp L2
--- NOTE | 2017-07-05 10:13 | PN_ITS ---
Patient Problems: Active and Suspected Problems Diabetic foot infection (Acute) Malfunction of indwelling urinary catheter (Acute) Subjective: Feels better today. Suprapubic catheter was changed out yesterday and it has been having output but not as much as he hoped or expected. Vitals/I&O's: Vital Signs Temp Pulse Resp BP Pulse Ox 36.4 C L 70 18 103/62 95 07/05/17 08:10 07/05/17 08:10 07/05/17 08:10 07/05/17 08:10 07/05/17 08:10 Oxygen Delivery Method Room Air Weight: 100.6 kg Body Mass Index (BMI) 30.9 Finger Stick Blood Glucose 135 Intake and Output for Last 24 Hours 07/03/17 07/04/17 07/05/17 23:59 23:59 23:59 Intake Total 653 / 653 579 / 579 Output Total 800 / 800 1250 / 1250 Balance -147 / -147 -671 / -671 General: Alert, Cooperative, No apparent distress HEENT: Atraumatic, Normocephalic Neck: No Nodes, Thyroid Normal Size and Texture Lungs: Clear to auscultation, Normal air movement, No rhonchi, No wheeze Cardiovascular: Regular rate, Regular Rhythm, Normal S1, Normal S2, No murmurs Abdomen: Bowel Sounds Present, Soft, Non Tender, Non-Distended, No Hepato- splenomegaly Extremities: No edema, No Calf Tenderness Skin: No rashes, - - States 3 ulcer on the right posterior heel. No purulence expressed. Minimal serous drainage. Musculoskeletal: Cachexia, Muscle Wasting, - - Clawlike deformities of the hands Lymphatic: No Cervical, Supraclavicular, or Inguinal Adenopathy, Cervical Adenopathy Psych/Mental Status: Normal Affect, Appropriate Laboratory Results 07/04/17 16:24: Sodium 138, Potassium 3.8, Chloride 98, Carbon Dioxide 31.0, Anion Gap 9, BUN 24 H, Creatinine 0.71, Estim Creat Clear Calc 76.35, Est GFR ( MDRD) Af Amer 143, Est GFR (MDRD) Non-Af 118, BUN/Creatinine Ratio 34.0 H, Glucose 147 H, Calcium 9.3 07/04/17 16:24: C-React Prot Ext Range 67.60 H 07/04/17 18:00: Urine Color Yellow, Urine Clarity Clear, Urine pH 7.0, Ur Specific [place] 1.010, Urine Protein 15 H, Urine Glucose (UA) Normal, Urine Ketones Negative, Urine Occult Blood 150 H, Urine Nitrite Positive H, Urine Bilirubin Negative, Urine Urobilinogen Normal, Ur Leukocyte Esterase 500 H, Urine RBC 5-10 SEEN, Urine WBC 25-50 SEEN, Ur Squamous Epith Cells 0 SEEN, Urine Bacteria RARE, Urine Mucus 0 SEEN 07/04/17 18:55: WBC 12.2 H, RBC 5.64, Hgb 15.2, Hct 47.8, MCV 84.8, MCH 27.0, MCHC 31.8 L, RDW 17.3 H, RDW Differential 53.2 H, Plt Count 200, MPV 10.8, Immature Gran % (Auto) 0.300, Neut % (Auto) 77.1 H, Lymph % (Auto) 14.9 L, [place] % (Auto) 5.4, Eos % (Auto) 2.1, Baso % (Auto) 0.2, Absolute Neuts (auto) 9.4 H, Absolute Lymphs (auto) 1.82, Total Counted Not Reportable 07/04/17 18:55: ESR 64 H 07/05/17 05:45: WBC 11.0, RBC 5.31, Hgb 14.2, Hct 44.5, MCV 83.8, MCH 26.7 L, MCHC 31.9 L, RDW 17.7 H, RDW Differential 53.6 H, Plt Count 182, MPV 11.1, Immature Gran % (Auto) 0.500, Neut % (Auto) 69.5, Lymph % (Auto) 17.8 L, [place] % (Auto) 8.5, Eos % (Auto) 3.4, Baso % (Auto) 0.3, Absolute Neuts (auto) 7.7, Absolute Lymphs (auto) 1.96, Total Counted Not Reportable 07/05/17 05:45: Sodium 137, Potassium 3.5, Chloride 99, Carbon Dioxide 30.0, Anion Gap 8, BUN 22 H, Creatinine 0.73, Estim Creat Clear Calc 76.35, Est GFR ( MDRD) Af Amer 137, Est GFR (MDRD) Non-Af 113, BUN/Creatinine Ratio 30.0 H, Glucose 139 H, Calcium 8.7 07/05/17 06:25: POC Glucose 153 H Current Medications Acetaminophen (Tylenol) 1,000 mg PO Q8H PRN PRN PRN Reason: PAIN OR FEVER Albuterol Sulfate (Ventolin Aerosols) 2.5 mg INHALATION Q4H PRN PRN PRN Reason: BREATHING Artificial Tears (Tears Naturale, Artificial Tears) 1 drop EACH EYE Q1H PRN PRN PRN Reason: Dryness, irritation Ascorbic Acid (Vitamin C) 1,000 mg PO BID [facility] Last Admin: 07/05/17 08:47 Dose: 1,000 mg Baclofen (Lioresal) 20 mg PO TID [facility] Last Admin: 07/05/17 06:20 Dose: 20 mg Cholecalciferol (Vitamin D) 1,000 unit PO DAILY [facility] Last Admin: 07/05/17 08:47 Dose: 1,000 unit Clonidine (Catapres) 0.1 mg PO BID PRN PRN Reason: Hypertensive Emergency Docusate Sodium (Colace) 100 mg PO QHS [facility] Last Admin: 07/04/17 21:46 Dose: 100 mg Enoxaparin Sodium (Lovenox) 40 mg SC DAILY@1000 [facility] Last Admin: 07/05/17 08:47 Dose: 40 mg Guaifenesin (Mucinex) 1,200 mg PO BID PRN PRN Reason: CONGESTION Heparin Sodium (Beef Lung) (Heparin 500 Unit/5 Ml (100/Ml)) 500 unit IV UD PRN PRN Reason: HEPARIN FLUSH Hydrochlorothiazide (Hctz) 25 mg PO DAILY [facility] Last Admin: 07/05/17 08:47 Dose: 25 mg Ampicillin Sodium/Sulbactam (Sodium 3 gm/ Sodium Chloride) 112 mls @ 150 mls/ hr IV Q8 [facility] Last Admin: 07/05/17 06:20 Dose: 150 mls/hr Levofloxacin (Levaquin) 750 mg in 150 mls @ 100 mls/hr IV Q24 [facility] Last Admin: 07/04/17 19:13 Dose: 100 mls/hr Insulin Aspart (Novolog Flexpen (Bkc)) 0 units SC TIDAC [facility] PRN Reason: Protocol Last Admin: 07/05/17 06:29 Dose: 2 units Loratadine (Claritin) 10 mg PO DAILY PRN PRN Reason: ALLERGIES Magnesium Hydroxide (Milk Of Magnesia) 30 ml PO DAILY PRN PRN PRN Reason: Constipation [facility] Admin: 07/05/17 08:46 Dose: 1 tablet Ondansetron HCl (Zofran) 4 mg IV Q8H PRN PRN PRN Reason: Nausea Oxybutynin Chloride (Ditropan) 5 mg PO TID PRN PRN PRN Reason: BLADDER SPASM Oxycodone HCl (Oxyir) 5 mg PO Q4H PRN PRN PRN Reason: Moderate Pain (pain scale 4-5) Potassium [facility] ([facility]Dur) [facility] Last Admin: 07/05/17 08:45 Dose: 20 meq Promethazine HCl (Phenergan) 25 mg PO Q4H PRN PRN PRN Reason: NAUSEA Psyllium Hydrophilic Mucilloid (Metamucil) 1 packet PO DAILY [facility] Last Admin: 07/05/17 08:47 Dose: 1 packet Sodium Chloride () 10 ml IV UD PRN PRN Reason: VAD FLUSH Last Admin: 07/05/17 06:21 Dose: 10 ml Sodium Chloride ([place] Nasal [place]) 2 spray NASAL DAILY PRN PRN PRN Reason: NASAL CONGESTION Sodium Hypochlorite (Dakins Solution 0.25% (1/2 Strength)) 1 applic TOPICAL BID [facility] PRN Reason: Protocol Assessment/Plan Active and Suspected Problems Diabetic foot infection (Acute) Malfunction of indwelling urinary catheter (Acute) 1. right heel ulcer and infection * Secondary to MSSA as well as Proteus. * Will start patient on IV Unasyn plus Levaquin. * Patient had a CAT scan that showed no osteomyelitis. * Will also consult infectious disease plus podiatry for further input and management. 2. Suprapubic catheter malfunction * Changed over 07/04 * It is clogged but the patient is urinating but through a [place] catheter as patient is unable to have a Nichols catheter can affect these had remnants of an old stent still in his urethra and placing a Nichols catheter may rupture of the balloon at the end according to the patient. * Patient has his current suprapubic catheter changed on June 11 and became occluded on June 30. * Follow up with Dr. Hickey as outpt 3. Diabetes mellitus type 2 * Continue with sliding scale and monitor blood sugars 4. Incomplete quadriplegia * Complicates care but also likely etiology of his ulcers and infections more so than the diabetes. 5. DVT prophylaxis with low molecular weight heparin 6. Code: Full Code (see note from 07/04) Code Visit Inpatient E&M: 08389 Subs Hosp L2
--- NOTE | 2017-07-05 10:49 | CON.PCM_ITS ---
Problem List (1) Diabetic foot infection Status: Acute Reason for Consult: osteo Consulted by: Dr. Broderick History of Present Illness: The patient is a 67 year old M with incomplete quadriplegia and past h/o osteomyelitis who was admitted yesterday with 3 week h/o R heel ulcer after boot was left off his foot. Over past 3-4 days, increasing redness, swelling, and purulent drainage from his heel. Redness was going up his RLE. No fever or chills. Wound cx from 06/30 (+) mssa and proteus. Recently established with ID in [place] who go to [place]. Has recurrent utis. Suprapubic cath recently placed, had decreased UOP past few days as well. Seen by Dr. Gan for his foot, exposed bone seen, sent to hospital for admission. Levaquin/ unasyn started. Suprapubic changed and UOP improved. Feeling better, redness improved, tolerating abx with no issue. Full ROS performed and neg except as noted above. - Medical History Past Medical History (Chronic Problems): Chronic Problems KAROLINA (obstructive sleep apnea) (Chronic) Pressure ulcer of left hip, stage 4 (Chronic) L89.224 recurrent left ischial/trochanteric pressure sore, Stage IV Anemia (Chronic) Obesity (Chronic) Allergic rhinitis (Chronic) Hypertension (Chronic) Quadriplegia (Chronic) G82.50 Stage 4 pressure ulcer (Chronic) Stage IV pressure ulcer of left buttock (Chronic) L89.324 recurrent left ischial/trochanteric pressure sore, Stage IV Other chronic osteomyelitis, other site (Chronic) M86.68 History of methicillin resistant Staphylococcus aureus infection (Chronic) Z86.14 Mild protein-calorie malnutrition (Chronic) malnutrition, mild, unspecified Non-pressure chronic ulcer of buttock (Chronic) nonhealing ulcer left perianal area after a myocutaneous flap 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) nonhealing ulcer left trochanteric area after a myocutaneous flap Allergies/Adverse Reactions: Allergies Penicillins Allergy (Verified 11/22/16 19:04) Hives pentazocine lactate [From Talwin] Adverse Reaction (Unknown, Verified 07/04/17 14:26) loopy loopy bethanechol chloride [From Urecholine] Adverse Reaction (Verified 07/04/17 14:26 ) bladder clamped down bladder clamped down had opposite reaction of what was expected fish derived Adverse Reaction (Verified 11/22/16 19:04) Nausea SEAFOOD Adverse Reaction (Uncoded 11/22/16 19:05) Vomiting Home Medications: Ambulatory Orders Medication Instructions Recorded Multivitamins,Therapeutic 1 tablet PO DAILY 02/04/14 [Multivitamin] Albuterol Aerosols [Ventolin 2.5 mg INHALATION Q4H PRN PRN 07/02/14 Aerosols] Cholecalciferol (VIT D3) [Vitamin 1,000 unit PO DAILY 07/02/14 D3] Hydrochlorothiazide [Hctz] 25 mg PO DAILY 07/02/14 Ascorbic Acid [Vitamin C] 1,000 mg PO BID 07/09/14 Acetaminophen [Tylenol] 1,000 mg PO Q8H PRN PRN #0 tablet 12/23/14 Dextran 70/He-Cell [Tears 1 drop EACH EYE Q1H PRN PRN #0 12/23/14 Naturale, Artificial Tears] bottle Oxybutynin [Ditropan] 5 mg PO TID PRN PRN 03/18/16 Insulin Aspart [Novolog Flexpen] See Protocol SC TIDCM 06/04/16 Sodium Chloride 0.65% [[place] Nasal 2 spray NASAL DAILY PRN PRN 06/04/16 [place]] Guaifenesin [Mucinex] 1,200 mg PO BID PRN 07/27/16 Potassium Chloride [K-Dur] 20 meq PO DAILYCM 07/27/16 Oxycodone [Oxyir] 5 mg PO 4X/DAY PRN PRN #40 tablet 08/12/16 Clonidine HCl [Catapres] 0.1 mg PO BID PRN 11/22/16 Cranberry Conc/Ascorbic Acid 4 each PO DAILY 11/22/16 [Cranberry 6,000 mg Softgel] Loratadine [Claritin] 10 mg PO DAILY PRN 11/22/16 Promethazine HCl 25 mg PO Q4H PRN PRN 11/22/16 Baclofen [Lioresal] 20 mg PO TID 07/04/17 Docusate Sodium [Colace] 100 mg PO QHS 07/04/17 Gabapentin [Neurontin] 100 mg PO TID 07/04/17 Psyllium Husk [Fiber] 0.4 gm PO BID 07/04/17 - Social History SMOKING STATUS:: Former smoker Vital Signs Temp Pulse Resp BP Pulse Ox 97.5 F L 70 18 103/62 95 07/05/17 08:10 07/05/17 08:10 07/05/17 08:10 07/05/17 08:10 07/05/17 08:10 Oxygen Delivery Method Room Air Weight: 100.6 kg Body Mass Index (BMI) 30.9 Finger Stick Blood Glucose 135 Laboratory Tests Past 24 Hrs 07/04/17 07/04/17 07/04/17 16:24 16:24 18:00 WBC RBC Hgb Hct MCV MCH MCHC RDW RDW Differential Plt Count MPV Immature Gran % (Auto) Neut % (Auto) Lymph % (Auto) [place] % (Auto) Eos % (Auto) Baso % (Auto) Absolute Neuts (auto) Absolute Lymphs (auto) Total Counted ESR Sodium 138 Potassium 3.8 Chloride 98 Carbon Dioxide 31.0 Anion Gap 9 BUN 24 H Creatinine 0.71 Estim Creat Clear Calc 76.35 Est GFR (MDRD) Af Amer 143 Est GFR (MDRD) Non-Af 118 BUN/Creatinine Ratio 34.0 H Glucose 147 H Calcium 9.3 C-React Prot Ext Range 67.60 H Urine Color Yellow Urine Clarity Clear Urine pH 7.0 Ur Specific [place] 1.010 Urine Protein 15 H Urine Glucose (UA) Normal Urine Ketones Negative Urine Occult Blood 150 H Urine Nitrite Positive H Urine Bilirubin Negative Urine Urobilinogen Normal Ur Leukocyte Esterase 500 H Urine RBC 5-10 SEEN Urine WBC 25-50 SEEN Ur Squamous Epith Cells 0 SEEN Urine Bacteria RARE Urine Mucus 0 SEEN 07/04/17 07/04/17 07/05/17 18:55 18:55 05:45 WBC 12.2 H 11.0 RBC 5.64 5.31 Hgb 15.2 14.2 Hct 47.8 44.5 MCV 84.8 83.8 MCH 27.0 26.7 L MCHC 31.8 L 31.9 L RDW 17.3 H 17.7 H RDW Differential 53.2 H 53.6 H Plt Count 200 182 MPV 10.8 11.1 Immature Gran % (Auto) 0.300 0.500 Neut % (Auto) 77.1 H 69.5 Lymph % (Auto) 14.9 L 17.8 L [place] % (Auto) 5.4 8.5 Eos % (Auto) 2.1 3.4 Baso % (Auto) 0.2 0.3 Absolute Neuts (auto) 9.4 H 7.7 Absolute Lymphs (auto) 1.82 1.96 Total Counted Not Reportable Not Reportable ESR 64 H Sodium Potassium Chloride Carbon Dioxide Anion Gap BUN Creatinine Estim Creat Clear Calc Est GFR (MDRD) Af Amer Est GFR (MDRD) Non-Af BUN/Creatinine Ratio Glucose Calcium C-React Prot Ext Range Urine Color Urine Clarity Urine pH Ur Specific [place] Urine Protein Urine Glucose (UA) Urine Ketones Urine Occult Blood Urine Nitrite Urine Bilirubin Urine Urobilinogen Ur Leukocyte Esterase Urine RBC Urine WBC Ur Squamous Epith Cells Urine Bacteria Urine Mucus 07/05/17 05:45 WBC RBC Hgb Hct MCV MCH MCHC RDW RDW Differential Plt Count MPV Immature Gran % (Auto) Neut % (Auto) Lymph % (Auto) [place] % (Auto) Eos % (Auto) Baso % (Auto) Absolute Neuts (auto) Absolute Lymphs (auto) Total Counted ESR Sodium 137 Potassium 3.5 Chloride 99 Carbon Dioxide 30.0 Anion Gap 8 BUN 22 H Creatinine 0.73 Estim Creat Clear Calc 76.35 Est GFR (MDRD) Af Amer 137 Est GFR (MDRD) Non-Af 113 BUN/Creatinine Ratio 30.0 H Glucose 139 H Calcium 8.7 C-React Prot Ext Range Urine Color Urine Clarity Urine pH Ur Specific [place] Urine Protein Urine Glucose (UA) Urine Ketones Urine Occult Blood Urine Nitrite Urine Bilirubin Urine Urobilinogen Ur Leukocyte Esterase Urine RBC Urine WBC Ur Squamous Epith Cells Urine Bacteria Urine Mucus - Other Studies Radiology: [] reviewed Other Studies: [] Route of nutrition/ use of supplements: [] Nutritional Intake: [] IV Site: [] Nichols Catheter: [] - Physical Exam General: Alert, Oriented x3, Cooperative, No apparent distress HEENT: Atraumatic, PERRLA, EOMI Neck: Supple, No Nodes Lungs: Clear to auscultation, Normal air movement Cardiovascular: Regular rate, Regular Rhythm, No murmurs Abdomen: Bowel Sounds Present, Soft, Non Tender, Non-Distended, - - ostomy and suprapubic cath in place Skin: Ulcer/ Wound - R heel ulcer IV Site: Central Line, without redness Musculoskeletal: No Tenderness to Palpation of Joints or Extremities Neurological: Cranial nerves II-XII grossly intact, - - incomplete quadriplegia - Assessment/Plan Antibiotics: [] Assessment/Plan: [] Active and Suspected Problems Diabetic foot infection (Acute) Malfunction of indwelling urinary catheter (Acute) R heel MSSA and proteus osteomyelitis in quadriplegic pt - exposed bone per outpt television installer. Erythema improved on unasyn/levaquin. ESR elevated at 64. CT done which did not show osteo or abscess. Pt wishes to avoid home iv abx if possible due to expense. Depending on further cx results, should have some good oral options (doxy, amoxicillin, flagyl for planned 6-8 week course). Cont iv unasyn for now, will change levaquin to po. MRSA pcr was neg. Suprapubic cath obstruction - pyuria on UA, urology consulted, abx as above. Ucx pending. Thank you, will follow.
--- NOTE | 2017-07-05 10:58 | PN_ITS ---
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 Gan yesterday for a ulcer to the right heel. The patient had been seen in the [facility] and had a culture taken that showed proteus as well as staph aureus. Wound center referred the patient to Dr. Gan, who in turn admitted him to the hospital. The patient states the ulcer started about a month ago and that it was pretty stable, however, his normal caregiver had to leave him in the care of a temporary caregiver for a short period of time, and he says the new caregiver forgot to put his offloading boots on one night and that is when the ulcer turned quickly. Recently he and his caregiver have been dressing the ulcer with aquacel ag and a dry sterile dressing. 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 He does have very limited feeling to the lower extremities. Patient has been seen in the past at the wound center for other lower extremity wounds as well as a sacral wound, which he admits he had a history of osteomyelitis there. - Physical Exam General: Alert, Oriented x3, Cooperative Extremities: Capillary Refill Less than 3 Seconds, Edema - slight increase in edema around ulcer site to right heel., Peripheral Pulses Normal - DP and PT pulses palpable Skin: Ulcer/ Wound - Ulcer appreciated to plantar posterior lateral right heel. The ulcer is approximately quarter sized at this time. The base is noted to have a mixed granular, fibrotic, and adherent slough base with slight thin eschar noted dorsally. Hyperkeratotic rim also appreciated. Very small area of bone noted centrally to the ulcer. Scant amount of purulent drainage noted to dressing. Some surrounding erythema noted as well as slightly increased edema and slight increase in warmth. There is no malodor, no visible abscess, no crepitus, and no fluctuance present at this time. Musculoskeletal: Muscle Wasting - bilateral lower extremities, - - ankle contracture right Neurological: - - no muscle strength to lower extremity as patient is paralyzed following wrestling injury from his teens. Psych/Mental Status: Normal Affect, Appropriate Vital Signs Temp Pulse Resp BP Pulse Ox 97.5 F L 70 18 103/62 95 07/05/17 08:10 07/05/17 08:10 07/05/17 08:10 07/05/17 08:10 07/05/17 08:10 Oxygen Delivery Method Room Air Weight: 100.6 kg Body Mass Index (BMI) 30.9 Finger Stick Blood Glucose 135 Intake and Output for Last 24 Hours 07/03/17 07/04/17 07/05/17 23:59 23:59 23:59 Intake Total 653 / 653 579 / 579 Output Total 800 / 800 1250 / 1250 Balance -147 / -147 -671 / -671 Laboratory Tests Past 24 Hrs 07/04/17 07/04/17 07/04/17 16:24 16:24 18:00 WBC RBC Hgb Hct MCV MCH MCHC RDW RDW Differential Plt Count MPV Immature Gran % (Auto) Neut % (Auto) Lymph % (Auto) [place] % (Auto) Eos % (Auto) Baso % (Auto) Absolute Neuts (auto) Absolute Lymphs (auto) Total Counted ESR Sodium 138 Potassium 3.8 Chloride 98 Carbon Dioxide 31.0 Anion Gap 9 BUN 24 H Creatinine 0.71 Estim Creat Clear Calc 76.35 Est GFR (MDRD) Af Amer 143 Est GFR (MDRD) Non-Af 118 BUN/Creatinine Ratio 34.0 H Glucose 147 H Calcium 9.3 C-React Prot Ext Range 67.60 H Urine Color Yellow Urine Clarity Clear Urine pH 7.0 Ur Specific [place] 1.010 Urine Protein 15 H Urine Glucose (UA) Normal Urine Ketones Negative Urine Occult Blood 150 H Urine Nitrite Positive H Urine Bilirubin Negative Urine Urobilinogen Normal Ur Leukocyte Esterase 500 H Urine RBC 5-10 SEEN Urine WBC 25-50 SEEN Ur Squamous Epith Cells 0 SEEN Urine Bacteria RARE Urine Mucus 0 SEEN 07/04/17 07/04/17 07/05/17 18:55 18:55 05:45 WBC 12.2 H 11.0 RBC 5.64 5.31 Hgb 15.2 14.2 Hct 47.8 44.5 MCV 84.8 83.8 MCH 27.0 26.7 L MCHC 31.8 L 31.9 L RDW 17.3 H 17.7 H RDW Differential 53.2 H 53.6 H Plt Count 200 182 MPV 10.8 11.1 Immature Gran % (Auto) 0.300 0.500 Neut % (Auto) 77.1 H 69.5 Lymph % (Auto) 14.9 L 17.8 L [place] % (Auto) 5.4 8.5 Eos % (Auto) 2.1 3.4 Baso % (Auto) 0.2 0.3 Absolute Neuts (auto) 9.4 H 7.7 Absolute Lymphs (auto) 1.82 1.96 Total Counted Not Reportable Not Reportable ESR 64 H Sodium Potassium Chloride Carbon Dioxide Anion Gap BUN Creatinine Estim Creat Clear Calc Est GFR (MDRD) Af Amer Est GFR (MDRD) Non-Af BUN/Creatinine Ratio Glucose Calcium C-React Prot Ext Range Urine Color Urine Clarity Urine pH Ur Specific [place] Urine Protein Urine Glucose (UA) Urine Ketones Urine Occult Blood Urine Nitrite Urine Bilirubin Urine Urobilinogen Ur Leukocyte Esterase Urine RBC Urine WBC Ur Squamous Epith Cells Urine Bacteria Urine Mucus 07/05/17 05:45 WBC RBC Hgb Hct MCV MCH MCHC RDW RDW Differential Plt Count MPV Immature Gran % (Auto) Neut % (Auto) Lymph % (Auto) [place] % (Auto) Eos % (Auto) Baso % (Auto) Absolute Neuts (auto) Absolute Lymphs (auto) Total Counted ESR Sodium 137 Potassium 3.5 Chloride 99 Carbon Dioxide 30.0 Anion Gap 8 BUN 22 H Creatinine 0.73 Estim Creat Clear Calc 76.35 Est GFR (MDRD) Af Amer 137 Est GFR (MDRD) Non-Af 113 BUN/Creatinine Ratio 30.0 H Glucose 139 H Calcium 8.7 C-React Prot Ext Range Urine Color Urine Clarity Urine pH Ur Specific [place] Urine Protein Urine Glucose (UA) Urine Ketones Urine Occult Blood Urine Nitrite Urine Bilirubin Urine Urobilinogen Ur Leukocyte Esterase Urine RBC Urine WBC Ur Squamous Epith Cells Urine Bacteria Urine Mucus POC Glucose 07/05/17 06:25 POC Glucose 153 H Assessment/Plan Active and Suspected Problems Diabetic foot infection (Acute) Malfunction of indwelling urinary catheter (Acute) 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 His vital signs are stable at this time. WBC is 11. ESR is 64. CRP is 67.6. Patient is unable to have MRI so CT was obtained yesterday. CT showed some spurring, degenerative changes, and soft tissue swelling, but no evidence of abscess or osteomyelitis at this time. Dr. Espinoza with ID is following patient. He will have patient continue iv unasyn for now, and will change levaquin to po. MRSA pcr was negative. During the bedside visit today, the ulcer site was carefully cleansed with sterile saline. A #15 blade was then used to carefully debride the aforementioned hyperkeratotic tissue surrounding the ulcer site. Some of the slough was carefully debrided from the base as well. Small amount of bleeding appreciated following debridement and hemostasis was easily obtained with manual compression. The ulcer site was again cleansed with sterile saline, followed by a dakins solution wet to dry gauze dressing, followed by ABD, and julián. The patient was educated on the importance of absolutely no pressure to either heel while in bed or sitting. For now, the patient is to have pillows under each calf, while completely floating heels with no pressure. Assembla will fit the patient for [employer]. Patient also states that his caregiver will bring in his cushioned offloading boots in the mean time. Even with the cushioned boots, I still recommend the patient's heels be floated over pillows. Order placed for the patient to have a dakins wet to dry gauze dressing change followed by MANGO and julián every 8 hours by nursing. Podiatry will continue to follow patient while in hospital.
[2017-07-05 11:42] LABS: Bedside Glucose 212 mg/dL (70-110)
--- NOTE | 2017-07-05 12:11 | CASEMGMT ---
See RN CM Assessment. DC PLAN: undetermined. Pt has setup at home with assist from aides. Plan is to return, however will evaluate for need for skilled home care, and/or SNF on discharge. Eleuterio GUPTA RN ACM
[2017-07-05 14:08] VITALS: BP 117/66; PULSE 76; RESP 18; TEMP 36.7; O2SAT 95
[2017-07-05] MEDS: Gabapentin 100 MG Capsule PO ×2 (14:12→21:52)
--- NOTE | 2017-07-05 14:13 | NURSING ---
patient is requesting that this nurse change his colostomy appliance. patient already had the flange cut to size and wanted to put the Amada ring in place. all he wanted this nurse to do is place the flange around the stoma and snap the pouch in place. peristomal skin is intact. cleansed with warm water and pat dry. appliance placed as per request. pt very particular about his care. patient's home cutlery grinder present at bedside. cutlery grinder had applied a new condom catheter per his request. patient also very particular about the condom catheter placement.
[2017-07-05 16:26] LABS: Bedside Glucose 182 mg/dL (70-110)
--- NOTE | 2017-07-05 16:33 | CHAPLAIN ---
Type of Pastoral Visit _x__ Initial Visit ___ Follow-up Visit ___ On-call Visit ___ General Patient Visit ___ Spiritual Assessment ___ Family Conference ___ Bereavement ___ Rapid Response ___ Code Blue ___ Other (describe below) Pastoral Care Referral From _x__ Patient ___ Family ___ Nurse ___ Physician ___ Grounds Person ___ Analysis Manager ___ Other (describe below) Sacrament/Intervention _x__ Active listening ___ Anointing ___ Buddhist ___ Bereavement ___ Communion ___ Nanette exploration ___ x___ Life review _x__ Prayer ___ Reconciliation ___ Sacrament of Sick _x__ Supportive presence ___ Wedding ___ Other (describe below) Pastoral Comments patient is contemplating the end of life, though it does not appear imminent the patient expresses that he knows it is coming closer all the time; pt has goal to get home again and to continue to have clarity of mind
--- NOTE | 2017-07-05 18:26 | CON.PCM_ITS ---
Problem List (1) Malfunction of indwelling urinary catheter Status: Acute Qualifiers: Encounter type: initial encounter Qualified Code(s): T83.011A - Breakdown ( mechanical) of indwelling urethral catheter, initial encounter Reason for Consult Date of Consultation: 07/05/17 Reason for Consultation: sp tube History of Present Illness: The patient is a 67 year old male h/o spine cord injury has a urolume stent, no has an SP tube placed by urologist in [place] nurses changed tube as it was clogged, has chronic UTIs, would avoid over treatment!! 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) L89.324 recurrent left ischial/trochanteric pressure sore, Stage IV Other chronic osteomyelitis, other site (Chronic) M86.68 History of methicillin resistant Staphylococcus aureus infection (Chronic) Z86.14 Mild protein-calorie malnutrition (Chronic) malnutrition, mild, unspecified Non-pressure chronic ulcer of buttock (Chronic) nonhealing ulcer left perianal area after a myocutaneous flap 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) nonhealing ulcer left trochanteric area after a myocutaneous flap Allergies Penicillins Allergy (Verified 11/22/16 19:04) Hives pentazocine lactate [From Talwin] Adverse Reaction (Unknown, Verified 07/04/17 14:26) loopy loopy bethanechol chloride [From Urecholine] Adverse Reaction (Verified 07/04/17 14:26 ) bladder clamped down bladder clamped down had opposite reaction of what was expected fish derived Adverse Reaction (Verified 11/22/16 19:04) Nausea SEAFOOD Adverse Reaction (Uncoded 11/22/16 19:05) Vomiting Home Medications: Ambulatory Orders Medication Instructions Recorded Multivitamins,Therapeutic 1 tablet PO DAILY 02/04/14 [Multivitamin] Albuterol Aerosols [Ventolin 2.5 mg INHALATION Q4H PRN PRN 07/02/14 Aerosols] Cholecalciferol (VIT D3) [Vitamin 1,000 unit PO DAILY 07/02/14 D3] Hydrochlorothiazide [Hctz] 25 mg PO DAILY 07/02/14 Ascorbic Acid [Vitamin C] 1,000 mg PO BID 07/09/14 Acetaminophen [Tylenol] 1,000 mg PO Q8H PRN PRN #0 tablet 12/23/14 Dextran 70/He-Cell [Tears 1 drop EACH EYE Q1H PRN PRN #0 12/23/14 [place]atur[place], Artificial Tears] bottle Oxybutynin [Ditropan] 5 mg PO TID PRN PRN 03/18/16 Insulin Aspart [Novolog Flexpen] See Protocol SC TIDCM 06/04/16 Sodium Chloride 0.65% [[place] Nasal 2 spray NASAL DAILY PRN PRN 06/04/16 [place]] Guaifenesin [Mucinex] 1,200 mg PO BID PRN 07/27/16 Potassium Chloride [K-Dur] 20 meq PO DAILYCM 07/27/16 Oxycodone [Oxyir] 5 mg PO 4X/DAY PRN PRN #40 tablet 08/12/16 Clonidine HCl [Catapres] 0.1 mg PO BID PRN 11/22/16 Cranberry Conc/Ascorbic Acid 4 each PO DAILY 11/22/16 [Cranberry 6,000 mg Softgel] Loratadine [Claritin] 10 mg PO DAILY PRN 11/22/16 Promethazine HCl 25 mg PO Q4H PRN PRN 11/22/16 Baclofen [Lioresal] 20 mg PO TID 07/04/17 Docusate Sodium [Colace] 100 mg PO QHS 07/04/17 Gabapentin [Neurontin] 100 mg PO TID 07/04/17 Psyllium Husk [Fiber] 0.4 gm PO BID 07/04/17 Surgical History: TURP, - - Urethral stent, diverting colostomy (1999), cervical spinal fusion (1966), plastic surgery for pressure ulceration left trochanteric area, UPP Psychiatric History: No pertinent psych hx Lives: Alone Smoking Status: Never smoker Tobacco Use: Non-smoker Alcohol: None Drugs: None - *Family History Paternal History Items: Heart Disease Maternal History Items: No pertinent history Review of Systems Constitutional: Denies: Chills, Fever, Weight Change HEENT: Denies: Head Aches, Sinus Congestion, Sinus Drainage Cardiovascular: Denies: Chest Pain, Palpitations Respiratory: Denies: Cough, Shortness of breath at rest, Sputum production Gastrointestinal: Denies: Abdominal Pain, Nausea, Vomiting Genitourinary: Denies: Dysuria Musculoskeletal: Denies: Joint Pain, Joint Tenderness Skin: Denies: Rash, Wounds Neurological: Denies: Numbness, Tingling, Focal weakness Psychiatric: Denies: Anxiety, Depression, Homicidal Ideations, Suicidal Ideations Hematologic/ Lymphatic: Denies: Easy Bruising, Easy Bleeding Physical Exam - Physical Exam Vital Signs Temp 98.0 F 07/05/17 14:08 Pulse 76 07/05/17 14:08 Resp 18 07/05/17 14:08 BP 117/66 07/05/17 14:08 Pulse Ox 95 07/05/17 14:08 Intake & Output 07/03/17 07/04/17 07/05/17 23:59 23:59 23:59 Intake Total 653 / 653 1419 / 1419 Output Total 800 / 800 1825 / 1825 Balance -147 / -147 -406 / -406 Weight: 100.6 kg 100.6 kg Intake: Oral 400 / 400 480 / 480 IV fluid/meds 253 / 253 939 / 939 Output: Urine 800 / 800 1200 / 1200 #2 Urine 625 / 625 Other: Number of Bowel Movements 1 General: Alert, Oriented x3 HEENT: Atraumatic Neck: Supple Lungs: No rhonchi Cardiovascular: Regular rate Abdomen: Bowel Sounds Present, Soft, - - sp tube in place, condom cath in place Microbiology Past 72 Hours 07/04/17 18:00 Urine Culture - Preliminary Urine, Catheterized Gram negative michelle Gram positive organism Laboratory Tests Past 24 Hrs 07/04/17 07/04/17 07/04/17 16:24 16:24 18:00 WBC RBC Hgb Hct MCV MCH MCHC RDW RDW Differential Plt Count MPV Immature Gran % (Auto) Neut % (Auto) Lymph % (Auto) [place] % (Auto) Eos % (Auto) Baso % (Auto) Absolute Neuts (auto) Absolute Lymphs (auto) Total Counted ESR Sodium 138 Potassium 3.8 Chloride 98 Carbon Dioxide 31.0 Anion Gap 9 BUN 24 H Creatinine 0.71 Estim Creat Clear Calc 76.35 Est GFR (MDRD) Af Amer 143 Est GFR (MDRD) Non-Af 118 BUN/Creatinine Ratio 34.0 H Glucose 147 H Calcium 9.3 C-React Prot Ext Range 67.60 H Urine Color Yellow Urine Clarity Clear Urine pH 7.0 Ur Specific [place] 1.010 Urine Protein 15 H Urine Glucose (UA) Normal Urine Ketones Negative Urine Occult Blood 150 H Urine Nitrite Positive H Urine Bilirubin Negative Urine Urobilinogen Normal Ur Leukocyte Esterase 500 H Urine RBC 5-10 SEEN Urine WBC 25-50 SEEN Ur Squamous Epith Cells 0 SEEN Urine Bacteria RARE Urine Mucus 0 SEEN 07/04/17 07/04/17 07/05/17 18:55 18:55 05:45 WBC 12.2 H 11.0 RBC 5.64 5.31 Hgb 15.2 14.2 Hct 47.8 44.5 MCV 84.8 83.8 MCH 27.0 26.7 L MCHC 31.8 L 31.9 L RDW 17.3 H 17.7 H RDW Differential 53.2 H 53.6 H Plt Count 200 182 MPV 10.8 11.1 Immature Gran % (Auto) 0.300 0.500 Neut % (Auto) 77.1 H 69.5 Lymph % (Auto) 14.9 L 17.8 L [place] % (Auto) 5.4 8.5 Eos % (Auto) 2.1 3.4 Baso % (Auto) 0.2 0.3 Absolute Neuts (auto) 9.4 H 7.7 Absolute Lymphs (auto) 1.82 1.96 Total Counted Not Reportable Not Reportable ESR 64 H Sodium Potassium Chloride Carbon Dioxide Anion Gap BUN Creatinine Estim Creat Clear Calc Est GFR (MDRD) Af Amer Est GFR (MDRD) Non-Af BUN/Creatinine Ratio Glucose Calcium C-React Prot Ext Range Urine Color Urine Clarity Urine pH Ur Specific [place] Urine Protein Urine Glucose (UA) Urine Ketones Urine Occult Blood Urine Nitrite Urine Bilirubin Urine Urobilinogen Ur Leukocyte Esterase Urine RBC Urine WBC Ur Squamous Epith Cells Urine Bacteria Urine Mucus 07/05/17 05:45 WBC RBC Hgb Hct MCV MCH MCHC RDW RDW Differential Plt Count MPV Immature Gran % (Auto) Neut % (Auto) Lymph % (Auto) [place] % (Auto) Eos % (Auto) Baso % (Auto) Absolute Neuts (auto) Absolute Lymphs (auto) Total Counted ESR Sodium 137 Potassium 3.5 Chloride 99 Carbon Dioxide 30.0 Anion Gap 8 BUN 22 H Creatinine 0.73 Estim Creat Clear Calc 76.35 Est GFR (MDRD) Af Amer 137 Est GFR (MDRD) Non-Af 113 BUN/Creatinine Ratio 30.0 H Glucose 139 H Calcium 8.7 C-React Prot Ext Range Urine Color Urine Clarity Urine pH Ur Specific [place] Urine Protein Urine Glucose (UA) Urine Ketones Urine Occult Blood Urine Nitrite Urine Bilirubin Urine Urobilinogen Ur Leukocyte Esterase Urine RBC Urine WBC Ur Squamous Epith Cells Urine Bacteria Urine Mucus Assessment/Plan Active and Suspected Problems Contracture, right ankle (Acute) Cellulitis of right foot (Acute) Type 2 diabetes mellitus with diabetic polyneuropathy (Acute) 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 call with questions.
[2017-07-05 19:57] VITALS: BP 129/73; PULSE 74; RESP 18; TEMP 36.8; O2SAT 97
[2017-07-05] MEDS: Docusate Sodium 100 MG Capsule PO (21:52)
[2017-07-06 02:20] VITALS: BP 149/85; PULSE 67; RESP 18; TEMP 36.5; O2SAT 94
[2017-07-06] MEDS: guaiFENesin 1,200 MG Tablet 1200 MG PO (02:27)
[2017-07-06] MEDS: Baclofen 10 MG Tablet 20 MG PO ×3 (06:29→22:00)
[2017-07-06] MEDS: levoFLOXacin 750 MG Tablet PO (06:29)
[2017-07-06] MEDS: 0.9% NaCl VAD Flush 10 ML IV (06:29)
[2017-07-06] MEDS: Gabapentin 100 MG Capsule PO ×3 (06:30→22:00)
[2017-07-06 06:47] LABS: Anion Gap 7 (5-15); BUN 18 mg/dL (7-18); BUN/Creat Ratio 25.5 RATIO (10-20); Calcium,Total 8.8 mg/dL (8.5-10.1); Chloride 105 mmol/L (98-107); Creatinine, Serum 0.71 mg/dL (0.70-1.30); EST Glomerular Filtration Rate 118 mL/min (>60); Est Glom Filt Rate - Afr Amer 143 mL/min (>60); Estimated Creatinine Clearance 76.35 ml/min; Glucose 122 mg/dL (74-106); Sodium Level 141 mmol/L (136-145)
[2017-07-06 06:51] LABS: Bedside Glucose 115 mg/dL (70-110)
[2017-07-06 08:00] VITALS: RESP 18
[2017-07-06] MEDS: Multivitamins,Therapeutic Tablet 1 TABLET PO (08:12)
[2017-07-06 08:13] VITALS: BP 133/65; PULSE 65; RESP 18; TEMP 37.1; O2SAT 98
--- NOTE | 2017-07-06 08:27 | PCM.PN.HOSP ---
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 No new complaints. Vitals/I&O's: Vital Signs Temp Pulse Resp BP Pulse Ox 37.1 C 65 18 133/65 H 98 07/06/17 08:13 07/06/17 08:13 07/06/17 08:13 07/06/17 08:13 07/06/17 08:13 Oxygen Delivery Method Room Air Weight: 100.6 kg Body Mass Index (BMI) 30.9 Finger Stick Blood Glucose 135 Intake and Output for Last 24 Hours 07/04/17 07/05/17 07/06/17 23:59 23:59 23:59 Intake Total 653 / 653 1419 / 1419 985 / 985 Output Total 800 / 800 1825 / 1825 1950 / 1950 Balance -147 / -147 -406 / -406 -965 / -965 General: Alert, Cooperative, No apparent distress HEENT: Atraumatic, Normocephalic Neck: No Nodes, Thyroid Normal Size and Texture Lungs: Clear to auscultation, Normal air movement, No rhonchi, No wheeze Cardiovascular: Regular rate, Regular Rhythm, Normal S1, Normal S2, No murmurs Abdomen: Bowel Sounds Present, Soft, Non Tender, Non-Distended, - - Colostomy left lower quadrants. Extremities: No edema, No Calf Tenderness Musculoskeletal: Cachexia, Muscle Wasting Psych/Mental Status: Normal Affect, Appropriate Microbiology Past 72 Hours 07/04/17 18:00 Urine, Catheterized Urine Culture - Preliminary Gram negative michelle Gram positive organism Laboratory Results 07/05/17 11:30: POC Glucose 212 H 07/05/17 16:18: POC Glucose 182 H 07/06/17 06:25: Sodium 141, Potassium 4.0, Chloride 105, Carbon Dioxide 29.0, Anion Gap 7, BUN 18, Creatinine 0.71, Estim Creat Clear Calc 76.35, Est GFR (MDRD) Af Amer 143, Est GFR (MDRD) Non-Af 118, BUN/Creatinine Ratio 25.5 H, Glucose 122 H, Calcium 8.8, Magnesium 2.0 07/06/17 06:26: POC Glucose 115 H Current Medications Acetaminophen (Tylenol) 1,000 mg PO Q8H PRN PRN PRN Reason: PAIN OR FEVER Albuterol Sulfate (Ventolin Aerosols) 2.5 mg INHALATION Q4H PRN PRN PRN Reason: BREATHING Artificial Tears (Tears [place]atur[place], Artificial Tears) 1 drop EACH EYE Q1H PRN PRN PRN Reason: Dryness, irritation Ascorbic Acid (Vitamin C) 1,000 mg PO BID [facility] Last Admin: 07/05/17 21:52 Dose: 1,000 mg Baclofen (Lioresal) 20 mg PO TID [facility] Last Admin: 07/06/17 06:29 Dose: 20 mg Cholecalciferol (Vitamin D) 1,000 unit PO DAILY [facility] Last Admin: 07/05/17 08:47 Dose: 1,000 unit Clonidine (Catapres) 0.1 mg PO BID PRN PRN Reason: Hypertensive Emergency Docusate Sodium (Colace) 100 mg PO QHS [facility] Last Admin: 07/05/17 21:52 Dose: 100 mg Enoxaparin Sodium (Lovenox) 40 mg SC DAILY@1000 [facility] Last Admin: 07/05/17 08:47 Dose: 40 mg Gabapentin (Neurontin) 100 mg PO 0600,1400,2200 [facility] Last Admin: 07/06/17 06:30 Dose: 100 mg Guaifenesin (Mucinex) 1,200 mg PO BID PRN PRN Reason: CONGESTION Last Admin: 07/06/17 02:27 Dose: 1,200 mg Heparin Sodium (Beef Lung) (Heparin 500 Unit/5 Ml (100/Ml)) 500 unit IV UD PRN PRN Reason: HEPARIN FLUSH Hydrochlorothiazide (Hctz) 25 mg PO DAILY [facility] Last Admin: 07/05/17 08:47 Dose: 25 mg Ampicillin Sodium/Sulbactam (Sodium 3 gm/ Sodium Chloride) 112 mls @ 150 mls/hr IV Q8 [facility] Last Admin: 07/06/17 06:29 Dose: 150 mls/hr Insulin Aspart (Novolog Flexpen (Bkc)) 0 units SC TIDAC JOSEPH PRN Reason: Protocol Last Admin: 07/06/17 06:30 Dose: Not Given Levofloxacin (Levaquin) 750 mg PO DAILY@0600 [facility] Last Admin: 07/06/17 06:29 Dose: 750 mg Loratadine (Claritin) 10 mg PO DAILY PRN PRN Reason: ALLERGIES Magnesium Hydroxide (Milk Of Magnesia) 30 ml PO DAILY PRN PRN PRN Reason: Constipation [facility] Admin: 07/06/17 08:12 Dose: 1 tablet Nutritional Formula (Lactose Free) (Glucerna Shake) 120 ml PO TIDCM [facility] Ondansetron HCl (Zofran) 4 mg IV Q8H PRN PRN PRN Reason: Nausea Oxybutynin Chloride (Ditropan) 5 mg PO TID PRN PRN PRN Reason: BLADDER SPASM Oxycodone HCl (Oxyir) 5 mg PO Q4H PRN PRN PRN Reason: Moderate Pain (pain scale 4-5) Potassium Chloride (K-Dur) [facility] Last Admin: 07/06/17 08:12 Dose: 20 meq Promethazine HCl (Phenergan) 25 mg PO Q4H PRN PRN PRN Reason: NAUSEA Psyllium Hydrophilic Mucilloid (Metamucil) 1 packet PO DAILY [facility] Last Admin: 07/05/17 08:47 Dose: 1 packet Sodium Chloride () 10 ml IV UD PRN PRN Reason: VAD FLUSH Last Admin: 07/06/17 06:29 Dose: 10 ml Sodium Chloride ([place] Nasal [place]) 2 spray NASAL DAILY PRN PRN PRN Reason: NASAL CONGESTION Sodium Hypochlorite (Dakins Solution 0.25% (1/2 Strength)) 1 applic TOPICAL BID [facility] PRN Reason: Protocol Last Admin: 07/05/17 21:53 Dose: 1 applicatio Assessment/Plan Active and Suspected Problems Contracture, right ankle (Acute) Cellulitis of right foot (Acute) Type 2 diabetes mellitus with diabetic polyneuropathy (Acute) 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 right heel ulcer and infection Secondary to MSSA as well as Proteus. Will start patient on IV Unasyn plus Levaquin. Patient had a CAT scan that showed no osteomyelitis. Will also consult infectious disease plus podiatry for further input and management. Pt underwent some debridement on 2/13 follow up cultures from 07/04, so growing out GNR, GPO 2. Suprapubic catheter malfunction Changed over 07/04 It is clogged but the patient is urinating but through a [place] catheter as patient is unable to have a [place] catheter can affect these had remnants of an old stent still in his urethra and placing a Nichols catheter may rupture of the balloon at the end according to the patient. Patient has his current suprapubic catheter changed on June 11 and became occluded on June 30. Follow up with Dr. Hickey as outpt 3. Diabetes mellitus type 2 Continue with sliding scale and monitor blood sugars fair control 4. Incomplete quadriplegia Complicates care but also likely etiology of his ulcers and infections more so than the diabetes. 5. DVT prophylaxis with low molecular weight heparin 6. Code: Full Code (see note from 07/04) Code Visit Inpatient E&M: 46128 Subs Hosp L2
--- NOTE | 2017-07-06 08:30 | PN_ITS ---
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 No new complaints. Vitals/I&O's: Vital Signs Temp Pulse Resp BP Pulse Ox 37.1 C 65 18 133/65 H 98 07/06/17 08:13 07/06/17 08:13 07/06/17 08:13 07/06/17 08:13 07/06/17 08:13 Oxygen Delivery Method Room Air Weight: 100.6 kg Body Mass Index (BMI) 30.9 Finger Stick Blood Glucose 135 Intake and Output for Last 24 Hours 07/04/17 07/05/17 07/06/17 23:59 23:59 23:59 Intake Total 653 / 653 1419 / 1419 985 / 985 Output Total 800 / 800 1825 / 1825 1950 / 1950 Balance -147 / -147 -406 / -406 -965 / -965 General: Alert, Cooperative, No apparent distress HEENT: Atraumatic, Normocephalic Neck: No Nodes, Thyroid Normal Size and Texture Lungs: Clear to auscultation, Normal air movement, No rhonchi, No wheeze Cardiovascular: Regular rate, Regular Rhythm, Normal S1, Normal S2, No murmurs Abdomen: Bowel Sounds Present, Soft, Non Tender, Non-Distended, - - Colostomy left lower quadrants. Extremities: No edema, No Calf Tenderness Musculoskeletal: Cachexia, Muscle Wasting Psych/Mental Status: Normal Affect, Appropriate Microbiology Past 72 Hours 07/04/17 18:00 Urine, Catheterized Urine Culture - Preliminary Gram negative michelle Gram positive organism Laboratory Results 07/05/17 11:30: POC Glucose 212 H 07/05/17 16:18: POC Glucose 182 H 07/06/17 06:25: Sodium 141, Potassium 4.0, Chloride 105, Carbon Dioxide 29.0, Anion Gap 7, BUN 18, Creatinine 0.71, Estim Creat Clear Calc 76.35, Est GFR ( MDRD) Af Amer 143, Est GFR (MDRD) Non-Af 118, BUN/Creatinine Ratio 25.5 H, Glucose 122 H, Calcium 8.8, Magnesium 2.0 07/06/17 06:26: POC Glucose 115 H Current Medications Acetaminophen (Tylenol) 1,000 mg PO Q8H PRN PRN PRN Reason: PAIN OR FEVER Albuterol Sulfate (Ventolin Aerosols) 2.5 mg INHALATION Q4H PRN PRN PRN Reason: BREATHING Artificial Tears (Tears [place], Artificial Tears) 1 drop EACH EYE Q1H PRN PRN PRN Reason: Dryness, irritation Ascorbic Acid (Vitamin C) 1,000 mg PO BID [facility] Last Admin: 07/05/17 21:52 Dose: 1,000 mg Baclofen (Lioresal) 20 mg PO TID [facility] Last Admin: 07/06/17 06:29 Dose: 20 mg Cholecalciferol (Vitamin D) 1,000 unit PO DAILY [facility] Last Admin: 07/05/17 08:47 Dose: 1,000 unit Clonidine (Catapres) 0.1 mg PO BID PRN PRN Reason: Hypertensive Emergency Docusate Sodium (Colace) 100 mg PO QHS [facility] Last Admin: 07/05/17 21:52 Dose: 100 mg Enoxaparin Sodium (Lovenox) 40 mg SC DAILY@1000 [facility] Last Admin: 07/05/17 08:47 Dose: 40 mg Gabapentin (Neurontin) 100 mg PO 0600,1400,2200 [facility] Last Admin: 07/06/17 06:30 Dose: 100 mg Guaifenesin (Mucinex) 1,200 mg PO BID PRN PRN Reason: CONGESTION Last Admin: 07/06/17 02:27 Dose: 1,200 mg Heparin Sodium (Beef Lung) (Heparin 500 Unit/5 Ml (100/Ml)) 500 unit IV UD PRN PRN Reason: HEPARIN FLUSH Hydrochlorothiazide (Hctz) 25 mg PO DAILY [facility] Last Admin: 07/05/17 08:47 Dose: 25 mg Ampicillin Sodium/Sulbactam (Sodium 3 gm/ Sodium Chloride) 112 mls @ 150 mls/ hr IV Q8 [facility] Last Admin: 07/06/17 06:29 Dose: 150 mls/hr Insulin Aspart (Novolog Flexpen (Bkc)) 0 units SC TIDAC JOSEPH PRN Reason: Protocol Last Admin: 07/06/17 06:30 Dose: Not Given Levofloxacin (Levaquin) 750 mg PO DAILY@0600 [facility] Last Admin: 07/06/17 06:29 Dose: 750 mg Loratadine (Claritin) 10 mg PO DAILY PRN PRN Reason: ALLERGIES Magnesium Hydroxide (Milk Of Magnesia) 30 ml PO DAILY PRN PRN PRN Reason: Constipation [facility]) [facility] Admin: 07/06/17 08:12 Dose: 1 tablet Nutritional Formula (Lactose Free) (Glucerna Shake) 120 ml PO TIDCM [facility] Ondansetron HCl (Zofran) 4 mg IV Q8H PRN PRN PRN Reason: Nausea Oxybutynin Chloride (Ditropan) 5 mg PO TID PRN PRN PRN Reason: BLADDER SPASM Oxycodone HCl (Oxyir) 5 mg PO Q4H PRN PRN PRN Reason: Moderate Pain (pain scale 4-5) Potassium Chloride (K-Dur) [facility] Last Admin: 07/06/17 08:12 Dose: 20 meq Promethazine HCl (Phenergan) 25 mg PO Q4H PRN PRN PRN Reason: NAUSEA Psyllium Hydrophilic Mucilloid (Metamucil) 1 packet PO DAILY [facility] Last Admin: 07/05/17 08:47 Dose: 1 packet Sodium Chloride () 10 ml IV UD PRN PRN Reason: VAD FLUSH Last Admin: 07/06/17 06:29 Dose: 10 ml Sodium Chloride ([place] Nasal [place]) 2 spray NASAL DAILY PRN PRN PRN Reason: NASAL CONGESTION Sodium Hypochlorite (Dakins Solution 0.25% (1/2 Strength)) 1 applic TOPICAL BID [facility] PRN Reason: Protocol Last Admin: 07/05/17 21:53 Dose: 1 applicatio Assessment/Plan Active and Suspected Problems Contracture, right ankle (Acute) Cellulitis of right foot (Acute) Type 2 diabetes mellitus with diabetic polyneuropathy (Acute) 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 right heel ulcer and infection * Secondary to MSSA as well as Proteus. * Will start patient on IV Unasyn plus Levaquin. * Patient had a CAT scan that showed no osteomyelitis. * Will also consult infectious disease plus podiatry for further input and management. * Pt underwent some debridement on 07/05 * follow up cultures from 07/04, so growing out GNR, GPO 2. Suprapubic catheter malfunction * Changed over 07/04 * It is clogged but the patient is urinating but through a [place] catheter as patient is unable to have a Nichols catheter can affect these had remnants of an old stent still in his urethra and placing a Nichols catheter may rupture of the balloon at the end according to the patient. * Patient has his current suprapubic catheter changed on June 11 and became occluded on June 30. * Follow up with Dr. Hickey as outpt 3. Diabetes mellitus type 2 * Continue with sliding scale and monitor blood sugars * fair control 4. Incomplete quadriplegia * Complicates care but also likely etiology of his ulcers and infections more so than the diabetes. 5. DVT prophylaxis with low molecular weight heparin 6. Code: Full Code (see note from 07/04) Code Visit Inpatient E&M: 60449 Subs Hosp L2
--- NOTE | 2017-07-06 09:30 | CASEMGMT ---
Addendum entered by Bryon Dueñas 07/06/17 11:31: Approval to have [employer] come to hospital received. Ivy notified and rep will come around 2 pm. Height, Weight and shoe size verified with pt and given to Ivy. -Discussed Home Health @ Length. Pt states [facility] won't want me back. Choices given to pt, no preference. [facility] called and referral faxed to their intake dept. Spoke with Claudia re: case, dressing change needs and pt is mostly bedbound due to quadriplegia. They will evaluate case and notify RN CM. Also requested that start of care be day after dc. Claudia is aware. Pt will need to take one day's supply of dressing change home. Script for dressing supplies also faxed to [facility]. Nurse Martina harvey. Eleuterio GUPTA RN ACM Original Note: Physician is requesting Off-loading boots be ordered prior to dc from [employer]. Call to [employer], spoke with Ivy re: off-loading boots. If rep comes to hospital, it will be billed to hospital for cost of ~$388. Requested they wait and let RN CM discuss plan with [facility]. Eleuterio GUPTA RN, CM
--- NOTE | 2017-07-06 10:25 | PCM.PN.ID ---
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 No fever, no n/v/d. - Physical Exam General: Alert, Cooperative, No apparent distress Lungs: Clear to auscultation, Normal air movement Cardiovascular: Regular rate, Regular Rhythm Abdomen: Soft, Non Tender, Non-Distended, - - ostomy and suprapubic cath Skin: Ulcer/ Wound - R heel ulcer wrapped Vital Signs Temp Pulse Resp BP Pulse Ox 98.7 F 65 18 133/65 H 98 07/06/17 08:13 07/06/17 08:13 07/06/17 08:13 07/06/17 08:13 07/06/17 08:13 Oxygen Delivery Method Room Air Weight: 100.6 kg Body Mass Index (BMI) 30.9 Finger Stick Blood Glucose 135 Intake and Output for Last 24 Hours 07/04/17 07/05/17 07/06/17 23:59 23:59 23:59 Intake Total 653 / 653 1419 / 1419 985 / 985 Output Total 800 / 800 1825 / 1825 1950 / 1950 Balance -147 / -147 -406 / -406 -965 / -965 Microbiology Past 72 Hours 07/04/17 18:00 Urine Culture - Preliminary Urine, Catheterized Proteus mirabilis GPC Poss Enterococcus sp Laboratory Tests Past 24 Hrs 07/06/17 06:25 Sodium 141 Potassium 4.0 Chloride 105 Carbon Dioxide 29.0 Anion Gap 7 BUN 18 Creatinine 0.71 Estim Creat Clear Calc 76.35 Est GFR (MDRD) Af Amer 143 Est GFR (MDRD) Non-Af 118 BUN/Creatinine Ratio 25.5 H Glucose 122 H Calcium 8.8 Magnesium 2.0 POC Glucose 07/06/17 07/05/17 07/05/17 06:26 16:18 11:30 POC Glucose 115 H 182 H 212 H Route of nutrition/ use of supplements: [] Nutritional Intake: [] IV Site: [] Nichols Catheter: [] - Assessment/Plan Antibiotics: [] Assessment/Plan: [] Active and Suspected Problems Diabetic foot infection (Acute) Malfunction of indwelling urinary catheter (Acute) 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 Erythema improved on unasyn/levaquin. ESR elevated at 64. CT done which did not show osteo or abscess. Pt wishes to avoid home iv abx if possible due to expense. Plan is for d/c home on doxy 100mg bid, amoxicillin 500mg tid, and flagyl 500mg tid for planned 6 week course, stop date 08/16/17. Cont iv unasyn for now, will stop levaquin. MRSA pcr was neg. Suprapubic cath obstruction - pyuria on UA, urology consulted, abx as above. Ucx showing proteus and enterococcus-like. Has chronic proteus colonization. Will follow. He wishes to follow up with previous ID office. Will write rx for abx and bmp, cbc, and esr in 1-2 weeks.
--- NOTE | 2017-07-06 10:43 | PN.ID_ITS ---
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 No fever, no n/v/d. - Physical Exam General: Alert, Cooperative, No apparent distress Lungs: Clear to auscultation, Normal air movement Cardiovascular: Regular rate, Regular Rhythm Abdomen: Soft, Non Tender, Non-Distended, - - ostomy and suprapubic cath Skin: Ulcer/ Wound - R heel ulcer wrapped Vital Signs Temp Pulse Resp BP Pulse Ox 98.7 F 65 18 133/65 H 98 07/06/17 08:13 07/06/17 08:13 07/06/17 08:13 07/06/17 08:13 07/06/17 08:13 Oxygen Delivery Method Room Air Weight: 100.6 kg Body Mass Index (BMI) 30.9 Finger Stick Blood Glucose 135 Intake and Output for Last 24 Hours 07/04/17 07/05/17 07/06/17 23:59 23:59 23:59 Intake Total 653 / 653 1419 / 1419 985 / 985 Output Total 800 / 800 1825 / 1825 1950 / 1950 Balance -147 / -147 -406 / -406 -965 / -965 Microbiology Past 72 Hours 07/04/17 18:00 Urine Culture - Preliminary Urine, Catheterized Proteus mirabilis GPC Poss Enterococcus sp Laboratory Tests Past 24 Hrs 07/06/17 06:25 Sodium 141 Potassium 4.0 Chloride 105 Carbon Dioxide 29.0 Anion Gap 7 BUN 18 Creatinine 0.71 Estim Creat Clear Calc 76.35 Est GFR (MDRD) Af Amer 143 Est GFR (MDRD) Non-Af 118 BUN/Creatinine Ratio 25.5 H Glucose 122 H Calcium 8.8 Magnesium 2.0 POC Glucose 07/06/17 07/05/17 07/05/17 06:26 16:18 11:30 POC Glucose 115 H 182 H 212 H Route of nutrition/ use of supplements: [] Nutritional Intake: [] IV Site: [] Nichols Catheter: [] - Assessment/Plan Antibiotics: [] Assessment/Plan: [] Active and Suspected Problems Diabetic foot infection (Acute) Malfunction of indwelling urinary catheter (Acute) 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 Erythema improved on unasyn /levaquin. ESR elevated at 64. CT done which did not show osteo or abscess. Pt wishes to avoid home iv abx if possible due to expense. Plan is for d/c home on doxy 100mg bid, amoxicillin 500mg tid, and flagyl 500mg tid for planned 6 week course, stop date 08/16/17. Cont iv unasyn for now, will stop levaquin. MRSA pcr was neg. Suprapubic cath obstruction - pyuria on UA, urology consulted, abx as above. Ucx showing proteus and enterococcus-like. Has chronic proteus colonization. Will follow. He wishes to follow up with previous ID office. Will write rx for abx and bmp, cbc, and esr in 1-2 weeks.
[2017-07-06] MEDS: hydroCHLOROthiazide 25 MG Tablet PO (10:48)
[2017-07-06] MEDS: Enoxaparin 40 MG/0.4 ML Syringe SC (10:48)
[2017-07-06] MEDS: Psyllium 1 PACKET PO (10:48)
[2017-07-06] MEDS: Ascorbic Acid 500 MG Tablet 1000 MG PO ×2 (10:48→21:59)
[2017-07-06 11:11] LABS: Bedside Glucose 158 mg/dL (70-110)
--- NOTE | 2017-07-06 11:36 | NURSING ---
wound photo: right heel
--- NOTE | 2017-07-06 11:36 | NURSING ---
wound photo: left ischium
[2017-07-06 14:00] VITALS: RESP 18
[2017-07-06 15:31] VITALS: BP 112/60; PULSE 79; RESP 18; TEMP 36.9; O2SAT 98
[2017-07-06 16:51] LABS: Bedside Glucose 166 mg/dL (70-110)
[2017-07-06] MEDS: Glucerna Shake 120 ML LIQUID PO (17:00)
--- NOTE | 2017-07-06 18:22 | PN_ITS ---
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 He is resting comfortably in bed. He states that he is feeling better today. He has PRAFO boots on both feet. He denies any feelings currently of nausea, vomiting, fever, or chills. - Physical Exam General: Alert, Oriented x3, Cooperative Extremities: Capillary Refill Less than 3 Seconds, Edema - slight amount surrounding ulcer, Peripheral Pulses Normal - DP and PT pulse palpable Skin: Ulcer/ Wound - Ulcer appreciated to plantar posterior lateral right heel. The ulcer has not changed in dimension since yesterday. The base is noted to have a mixed granular, fibrotic, and adherent slough base. There is more granular tissue appreciated today. Very small area of bone noted centrally to the ulcer. No purulence appreciated today. Some surrounding erythema noted as well as slightly increased edema and slight increase in warmth, but these are all improved today as compared with yesterday. There is no malodor, no visible abscess, no crepitus, and no fluctuance present at this time. Musculoskeletal: Muscle Wasting, - - bilateral ankle contractures Neurological: - - Patient is quadriplegic with only very slight sensation to parts of feet Psych/Mental Status: Normal Affect, Appropriate Vital Signs Temp Pulse Resp BP Pulse Ox 98.5 F 79 18 112/60 98 07/06/17 15:31 07/06/17 15:31 07/06/17 15:31 07/06/17 15:31 07/06/17 15:31 Oxygen Delivery Method Room Air Weight: 100.6 kg Body Mass Index (BMI) 30.9 Finger Stick Blood Glucose 135 Intake and Output for Last 24 Hours 07/04/17 07/05/17 07/06/17 23:59 23:59 23:59 Intake Total 653 / 653 1419 / 1419 1785 / 1785 Output Total 800 / 800 1825 / 1825 2400 / 2400 Balance -147 / -147 -406 / -406 -615 / -615 Microbiology Past 72 Hours 07/04/17 18:00 Urine Culture - Preliminary Urine, Catheterized Proteus mirabilis GPC Poss Enterococcus sp Laboratory Tests Past 24 Hrs 07/06/17 06:25 Sodium 141 Potassium 4.0 Chloride 105 Carbon Dioxide 29.0 Anion Gap 7 BUN 18 Creatinine 0.71 Estim Creat Clear Calc 76.35 Est GFR (MDRD) Af Amer 143 Est GFR (MDRD) Non-Af 118 BUN/Creatinine Ratio 25.5 H Glucose 122 H Calcium 8.8 Magnesium 2.0 POC Glucose 07/06/17 07/06/17 07/06/17 16:44 11:02 06:26 POC Glucose 166 H 158 H 115 H Assessment/Plan Active and Suspected Problems Contracture, right ankle (Acute) Cellulitis of right foot (Acute) Type 2 diabetes mellitus with diabetic polyneuropathy (Acute) 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 His vital signs are stable at this time. CT showed some spurring, degenerative changes, and soft tissue swelling, but no evidence of abscess or osteomyelitis at this time. Dr. Espinoza with ID is following patient. He says plan is for d/c home on doxy 100mg bid, amoxicillin 500mg tid, and flagyl 500mg tid for planned 6 week course. MRSA pcr was negative. During the bedside visit today, the ulcer site was carefully cleansed with sterile saline followed by a dakins solution wet to dry gauze dressing, followed by ABD, and kerlix. The patient was educated on the importance of absolutely no pressure to either heel while in bed or sitting. He is to continue to wear his PRAFO boots at all times in order to keep the heels offloaded. Once discharged, patient is to resume daily dressing changes of either aqucel ag or chris. I spoke with Frarah the wound care nurse about this on the phone today. Patient will follow up either in office with Dr. Gan, or at the wound healing center at [place]. Podiatry will continue to follow patient while in hospital.
[2017-07-06 20:10] VITALS: BP 124/65; PULSE 82; RESP 18; TEMP 36.6; O2SAT 92
[2017-07-06] MEDS: Docusate Sodium 100 MG Capsule PO (22:00)
[2017-07-06 22:17] LABS: Bedside Glucose 217 mg/dL (70-110)
[2017-07-07] MEDS: guaiFENesin 1,200 MG Tablet 1200 MG PO (01:44)
[2017-07-07 01:55] VITALS: O2SAT 92
[2017-07-07 02:05] VITALS: BP 100/56; PULSE 75; RESP 18; TEMP 36.7; O2SAT 92
--- NOTE | 2017-07-07 04:22 | NURSING ---
BG checked at 0315 when pt was found to be hot and sweaty. BG found to be critical at 39; Lab called at 0320 for a STAT lab backup; BG came back at 44; 360 mL of orange juice given at 0340 and BG rechecked and was at 64, 120 mL of orange juice given and rechecked at 0417 and BG was 85. Pt is alert to self and place, drowsy but that is baseline for patient. Will continue to monitor.
[2017-07-07] MEDS: Baclofen 10 MG Tablet 20 MG PO (05:32)
[2017-07-07] MEDS: Gabapentin 100 MG Capsule PO (05:34)
[2017-07-07 06:41] LABS: Bedside Glucose 132 mg/dL (70-110)
[2017-07-07 08:00] VITALS: RESP 18; O2SAT 93
[2017-07-07 08:05] VITALS: BP 105/65; PULSE 61; RESP 18; TEMP 36.5; O2SAT 94
--- NOTE | 2017-07-07 08:21 | PCM.PN.HOSP ---
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 No new complaints. SPC draining. Vitals/I&O's: Vital Signs Temp Pulse Resp BP Pulse Ox 36.7 C 75 18 100/56 L 92 07/07/17 02:05 07/07/17 02:05 07/07/17 02:05 07/07/17 02:05 07/07/17 02:05 Oxygen Delivery Method Room Air Weight: 100.6 kg Body Mass Index (BMI) 30.9 Finger Stick Blood Glucose 135 Intake and Output for Last 24 Hours 07/05/17 07/06/17 07/07/17 23:59 23:59 23:59 Intake Total 1419 / 1419 2665 / 2665 1231 / 1231 Output Total 1825 / 1825 2925 / 2925 2350 / 2350 Balance -406 / -406 -260 / -260 -1119 / -1119 General: Alert, Cooperative, No apparent distress HEENT: Atraumatic, Normocephalic Neck: No Nodes, Thyroid Normal Size and Texture Lungs: Clear to auscultation, Normal air movement, No rhonchi, No wheeze Cardiovascular: Regular rate, Regular Rhythm, Normal S1, Normal S2, No murmurs Abdomen: Bowel Sounds Present, Soft, Non Tender, Non-Distended Extremities: No edema, No Calf Tenderness Musculoskeletal: Cachexia, Muscle Wasting Psych/Mental Status: Normal Affect, Appropriate Microbiology Past 72 Hours 07/04/17 18:55 Blood Culture (Wb) - Anticubital Right Blood Culture - Preliminary No growth in 48 hours. 07/04/17 16:24 Blood Culture (Wb) - Anticubital Left Blood Culture - Preliminary No growth in 48 hours. 07/04/17 18:00 Urine, Catheterized Urine Culture - Final Proteus mirabilis Enterococcus faecalis Laboratory Results 07/06/17 11:02: POC Glucose 158 H 07/06/17 16:44: POC Glucose 166 H 07/06/17 22:03: POC Glucose 217 H 07/07/17 06:37: POC Glucose 132 H Current Medications Acetaminophen (Tylenol) 1,000 mg PO Q8H PRN PRN PRN Reason: PAIN OR FEVER Albuterol Sulfate (Ventolin Aerosols) 2.5 mg INHALATION Q4H PRN PRN PRN Reason: BREATHING Artificial Tears (Tears Naturale, Artificial Tears) 1 drop EACH EYE Q1H PRN PRN PRN Reason: Dryness, irritation Ascorbic Acid (Vitamin C) 1,000 mg PO BID COUNTS INCLUDE 234 BEDS AT THE [facility] Last Admin: 07/06/17 21:59 Dose: 1,000 mg Baclofen (Lioresal) 20 mg PO TID COUNTS INCLUDE 234 BEDS AT THE [facility] Last Admin: 07/07/17 05:32 Dose: 20 mg Cholecalciferol (Vitamin D) 1,000 unit PO DAILY COUNTS INCLUDE 234 BEDS AT THE [facility] Last Admin: 07/06/17 10:48 Dose: 1,000 unit Clonidine (Catapres) 0.1 mg PO BID PRN PRN Reason: Hypertensive Emergency Docusate Sodium (Colace) 100 mg PO QHS COUNTS INCLUDE 234 BEDS AT THE [facility] Last Admin: 07/06/17 22:00 Dose: 100 mg Enoxaparin Sodium (Lovenox) 40 mg SC DAILY@1000 COUNTS INCLUDE 234 BEDS AT THE [facility] Last Admin: 07/06/17 10:48 Dose: 40 mg Gabapentin (Neurontin) 100 mg PO 0600,1400,2200 COUNTS INCLUDE 234 BEDS AT THE [facility] Last Admin: 07/07/17 05:34 Dose: 100 mg Guaifenesin (Mucinex) 1,200 mg PO BID PRN PRN Reason: CONGESTION Last Admin: 07/07/17 01:44 Dose: 1,200 mg Heparin Sodium (Beef Lung) (Heparin 500 Unit/5 Ml (100/Ml)) 500 unit IV UD PRN PRN Reason: HEPARIN FLUSH Hydrochlorothiazide (Hctz) 25 mg PO DAILY COUNTS INCLUDE 234 BEDS AT THE [facility] Last Admin: 07/06/17 10:48 Dose: 25 mg Ampicillin Sodium/Sulbactam (Sodium 3 gm/ Sodium Chloride) 112 mls @ 150 mls/hr IV Q8 COUNTS INCLUDE 234 BEDS AT THE [facility] Last Admin: 07/07/17 05:32 Dose: 150 mls/hr Insulin Aspart (Novolog Flexpen (Bkc)) 0 units SC TIDAC COUNTS INCLUDE 234 BEDS AT THE [facility] PRN Reason: Protocol Last Admin: 07/07/17 06:42 Dose: Not Given Loratadine (Claritin) 10 mg PO DAILY PRN PRN Reason: ALLERGIES Magnesium Hydroxide (Milk Of Magnesia) 30 ml PO DAILY PRN PRN PRN Reason: Constipation Multivitamins (Multivitamin) [facility] Last Admin: 07/06/17 08:12 Dose: 1 tablet Nutritional Formula (Dov - Coke Flavor) 1 [facility] Last Admin: 07/06/17 17:00 Dose: 1 packet Nutritional Formula (Lactose Free) (Glucerna Shake) 120 ml PO TIDCM COUNTS INCLUDE 234 BEDS AT THE [facility] Last Admin: 07/06/17 17:00 Dose: 120 ml Ondansetron HCl (Zofran) 4 mg IV Q8H PRN PRN PRN Reason: Nausea Oxybutynin Chloride (Ditropan) 5 mg PO TID PRN PRN PRN Reason: BLADDER SPASM Oxycodone HCl (Oxyir) 5 mg PO Q4H PRN PRN PRN Reason: Moderate Pain (pain scale 4-5) Potassium Chloride (K-Dur) 20 meq [facility] Last Admin: 07/06/17 08:12 Dose: 20 meq Promethazine HCl (Phenergan) 25 mg PO Q4H PRN PRN PRN Reason: NAUSEA Psyllium Hydrophilic Mucilloid (Metamucil) 1 packet PO DAILY COUNTS INCLUDE 234 BEDS AT THE [facility] Last Admin: 07/06/17 10:48 Dose: 1 packet Sodium Chloride () 10 ml IV UD PRN PRN Reason: VAD FLUSH Last Admin: 07/06/17 06:29 Dose: 10 ml Sodium Chloride ([place] Nasal [place]) 2 spray NASAL DAILY PRN PRN PRN Reason: NASAL CONGESTION Sodium Hypochlorite (Dakins Solution 0.25% (1/2 Strength)) 1 applic TOPICAL BID COUNTS INCLUDE 234 BEDS AT THE [facility] PRN Reason: Protocol Last Admin: 07/06/17 22:08 Dose: 1 applicatio Assessment/Plan Active and Suspected Problems Contracture, right ankle (Acute) Cellulitis of right foot (Acute) Type 2 diabetes mellitus with diabetic polyneuropathy (Acute) 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 right heel ulcer and infection Secondary to MSSA as well as Proteus. Will start patient on IV Unasyn plus Levaquin. Patient had a CAT scan that showed no osteomyelitis. Will also consult infectious disease plus podiatry for further input and management. Pt underwent some debridement on 07/05 2. Suprapubic catheter malfunction Changed over 07/04 It is clogged but the patient is urinating but through a [place] catheter as patient is unable to have a Nichols catheter can affect these had remnants of an old stent still in his urethra and placing a Nichols catheter may rupture of the balloon at the end according to the patient. Patient has his current suprapubic catheter changed on June 11 and became occluded on June 30. Follow up with Dr. Hickey as outpt + Proteus and Enterococcus 3. Diabetes mellitus type 2 Continue with sliding scale and monitor blood sugars fair control 4. Incomplete quadriplegia Complicates care but also likely etiology of his ulcers and infections more so than the diabetes. 5. DVT prophylaxis with low molecular weight heparin 6. Code: Full Code (see note from 07/04)
--- NOTE | 2017-07-07 08:26 | PN_ITS ---
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 No new complaints. SPC draining. Vitals/I&O's: Vital Signs Temp Pulse Resp BP Pulse Ox 36.7 C 75 18 100/56 L 92 07/07/17 02:05 07/07/17 02:05 07/07/17 02:05 07/07/17 02:05 07/07/17 02:05 Oxygen Delivery Method Room Air Weight: 100.6 kg Body Mass Index (BMI) 30.9 Finger Stick Blood Glucose 135 Intake and Output for Last 24 Hours 07/05/17 07/06/17 07/07/17 23:59 23:59 23:59 Intake Total 1419 / 1419 2665 / 2665 1231 / 1231 Output Total 1825 / 1825 2925 / 2925 2350 / 2350 Balance -406 / -406 -260 / -260 -1119 / -1119 General: Alert, Cooperative, No apparent distress HEENT: Atraumatic, Normocephalic Neck: No Nodes, Thyroid Normal Size and Texture Lungs: Clear to auscultation, Normal air movement, No rhonchi, No wheeze Cardiovascular: Regular rate, Regular Rhythm, Normal S1, Normal S2, No murmurs Abdomen: Bowel Sounds Present, Soft, Non Tender, Non-Distended Extremities: No edema, No Calf Tenderness Musculoskeletal: Cachexia, Muscle Wasting Psych/Mental Status: Normal Affect, Appropriate Microbiology Past 72 Hours 07/04/17 18:55 Blood Culture (Wb) - Anticubital Right Blood Culture - Preliminary No growth in 48 hours. 07/04/17 16:24 Blood Culture (Wb) - Anticubital Left Blood Culture - Preliminary No growth in 48 hours. 07/04/17 18:00 Urine, Catheterized Urine Culture - Final Proteus mirabilis Enterococcus faecalis Laboratory Results 07/06/17 11:02: POC Glucose 158 H 07/06/17 16:44: POC Glucose 166 H 07/06/17 22:03: POC Glucose 217 H 07/07/17 06:37: POC Glucose 132 H Current Medications Acetaminophen (Tylenol) 1,000 mg PO Q8H PRN PRN PRN Reason: PAIN OR FEVER Albuterol Sulfate (Ventolin Aerosols) 2.5 mg INHALATION Q4H PRN PRN PRN Reason: BREATHING Artificial Tears (Tears Naturale, Artificial Tears) 1 drop EACH EYE Q1H PRN PRN PRN Reason: Dryness, irritation Ascorbic Acid (Vitamin C) 1,000 mg PO BID [facility] Last Admin: 07/06/17 21:59 Dose: 1,000 mg Baclofen (Lioresal) 20 mg PO TID [facility] Last Admin: 07/07/17 05:32 Dose: 20 mg Cholecalciferol (Vitamin D) 1,000 unit PO DAILY [facility] Last Admin: 07/06/17 10:48 Dose: 1,000 unit Clonidine (Catapres) 0.1 mg PO BID PRN PRN Reason: Hypertensive Emergency Docusate Sodium (Colace) 100 mg PO QHS [facility] Last Admin: 07/06/17 22:00 Dose: 100 mg Enoxaparin Sodium (Lovenox) 40 mg SC DAILY@1000 [facility] Last Admin: 07/06/17 10:48 Dose: 40 mg Gabapentin (Neurontin) 100 mg PO 0600,1400,2200 [facility] Last Admin: 07/07/17 05:34 Dose: 100 mg Guaifenesin (Mucinex) 1,200 mg PO BID PRN PRN Reason: CONGESTION Last Admin: 07/07/17 01:44 Dose: 1,200 mg Heparin Sodium (Beef Lung) (Heparin 500 Unit/5 Ml (100/Ml)) 500 unit IV UD PRN PRN Reason: HEPARIN FLUSH Hydrochlorothiazide (Hctz) 25 mg PO DAILY [facility] Last Admin: 07/06/17 10:48 Dose: 25 mg Ampicillin Sodium/Sulbactam (Sodium 3 gm/ Sodium Chloride) 112 mls @ 150 mls/ hr IV Q8 [facility] Last Admin: 07/07/17 05:32 Dose: 150 mls/hr Insulin Aspart (Novolog Flexpen (Bkc)) 0 units SC TIDAC [facility] PRN Reason: Protocol Last Admin: 07/07/17 06:42 Dose: Not Given Loratadine (Claritin) 10 mg PO DAILY PRN PRN Reason: ALLERGIES Magnesium Hydroxide (Milk Of Magnesia) 30 ml PO DAILY PRN PRN PRN Reason: Constipation [facility]it[facility]itamin) [facility] Admin: 07/06/17 08:12 Dose: 1 tablet Nutritional Formula (Dov - [place] Flavor) [facility] Last Admin: 07/06/17 17:00 Dose: 1 packet Nutritional Formula (Lactose Free) (Glucerna Shake) 120 ml PO TIDCM [facility] Last Admin: 07/06/17 17:00 Dose: 120 ml Ondansetron HCl (Zofran) 4 mg IV Q8H PRN PRN PRN Reason: Nausea Oxybutynin Chloride (Ditropan) 5 mg PO TID PRN PRN PRN Reason: BLADDER SPASM Oxycodone HCl (Oxyir) 5 mg PO Q4H PRN PRN PRN Reason: Moderate Pain (pain scale 4-5) Potassium Chloride (K-Dur) [facility] Admin: 07/06/17 08:12 Dose: 20 meq Promethazine HCl (Phenergan) 25 mg PO Q4H PRN PRN PRN Reason: NAUSEA Psyllium Hydrophilic Mucilloid (Metamucil) 1 packet PO DAILY [facility] Last Admin: 07/06/17 10:48 Dose: 1 packet Sodium Chloride () 10 ml IV UD PRN PRN Reason: VAD FLUSH Last Admin: 07/06/17 06:29 Dose: 10 ml Sodium Chloride ([place] Nasal [place]) 2 spray NASAL DAILY PRN PRN PRN Reason: NASAL CONGESTION Sodium Hypochlorite (Dakins Solution 0.25% (1/2 Strength)) 1 applic TOPICAL BID [facility] PRN Reason: Protocol Last Admin: 07/06/17 22:08 Dose: 1 applicatio Assessment/Plan Active and Suspected Problems Contracture, right ankle (Acute) Cellulitis of right foot (Acute) Type 2 diabetes mellitus with diabetic polyneuropathy (Acute) 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 right heel ulcer and infection * Secondary to MSSA as well as Proteus. * Will start patient on IV Unasyn plus Levaquin. * Patient had a CAT scan that showed no osteomyelitis. * Will also consult infectious disease plus podiatry for further input and management. * Pt underwent some debridement on 07/05 2. Suprapubic catheter malfunction * Changed over 07/04 * It is clogged but the patient is urinating but through a [place] catheter as patient is unable to have a [place] catheter can affect these had remnants of an old stent still in his urethra and placing a Nichols catheter may rupture of the balloon at the end according to the patient. * Patient has his current suprapubic catheter changed on June 11 and became occluded on June 30. * Follow up with Dr. Hickey as outpt * + Proteus and Enterococcus 3. Diabetes mellitus type 2 * Continue with sliding scale and monitor blood sugars * fair control 4. Incomplete quadriplegia * Complicates care but also likely etiology of his ulcers and infections more so than the diabetes. 5. DVT prophylaxis with low molecular weight heparin 6. Code: Full Code (see note from 07/04)
--- NOTE | 2017-07-07 08:29 | PCM.DC ---
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 (Acute) Diabetic foot infection (Acute) Malfunction of indwelling urinary catheter (Acute) KAROLINA (obstructive sleep apnea) (Chronic) You will use the following diet at home:: Calorie/Carbohydrate Controlled (specify 1200, 1400, etc) - 1800 kcal/day Your food should be the consistency of: Regular Your liquids should be the consistency of: Regular/Thin Discharge Activity: - - return to prior level of activity May resume sexual activity in: No Restrictions Call your doctor if you observe: Fever of 101 or Higher, Inability to urinate, Shortness of breath Allergies/Adverse Reactions: Allergies Penicillins Allergy (Verified 11/22/16 19:04) Hives pentazocine lactate [From [place]win] Adverse Reaction (Unknown, Verified 07/04/17 14:26) loopy loopy bethanechol chloride [From Urecholine] Adverse Reaction (Verified 07/04/17 14:26) bladder clamped down bladder clamped down had opposite reaction of what was expected fish derived Adverse Reaction (Verified 11/22/16 19:04) Nausea SEAFOOD Adverse Reaction (Uncoded 11/22/16 19:05) Vomiting Medications to take at Discharge Multivitamins,Therapeutic [Multivitamin] 1 tablet PO DAILY 02/04/14 Albuterol Aerosols [Ventolin Aerosols] 2.5 mg INHALATION Q4H PRN PRN 07/02/14 Cholecalciferol (VIT D3) [Vitamin D3] 1,000 unit PO DAILY 07/02/14 Hydrochlorothiazide [Hctz] 25 mg PO DAILY 07/02/14 Ascorbic Acid [Vitamin C] 1,000 mg PO BID 07/09/14 Acetaminophen [Tylenol] 1,000 mg PO Q8H PRN PRN #0 tablet 12/23/14 Dextran 70/He-Cell [Tears Naturale, Artificial Tears] 1 drop EACH EYE Q1H PRN PRN #0 bottle 12/23/14 Oxybutynin [Ditropan] 5 mg PO TID PRN PRN 03/18/16 Insulin Aspart [Novolog Flexpen] See Protocol [place] TIDCM 06/04/16 Sodium Chloride 0.65% [[place] Nasal [place]] 2 spray NASAL DAILY PRN PRN 06/04/16 Guaifenesin [Mucinex] 1,200 mg PO BID PRN 07/27/16 Potassium Chloride [K-Dur] 20 meq PO DAILYCM 07/27/16 Oxycodone [Oxyir] 5 mg PO 4X/DAY PRN PRN #40 tablet 08/12/16 Clonidine HCl [Catapres] 0.1 mg PO BID PRN 11/22/16 Cranberry Conc/Ascorbic Acid [Cranberry 6,000 mg Softgel] 4 each PO DAILY 11/22/16 Loratadine [Claritin] 10 mg PO DAILY PRN 11/22/16 Promethazine HCl 25 mg PO Q4H PRN PRN 11/22/16 Baclofen [Lioresal] 20 mg PO TID 07/04/17 Docusate Sodium [Colace] 100 mg PO QHS 07/04/17 Gabapentin [Neurontin] 100 mg PO TID 07/04/17 Psyllium Husk [Fiber] 0.4 gm PO BID 07/04/17 Amoxicillin 500 mg PO TID 40 Days #120 tab 07/06/17 Doxycycline 100 mg PO BID 40 Days #80 cap 07/06/17 Metronidazole [Flagyl] 500 mg PO TID 40 Days #120 tab 07/06/17 The following prescriptions were given: Doxycycline 100 mg PO BID 40 Days #80 cap Amoxicillin 500 mg PO TID 40 Days #120 tab Metronidazole [Flagyl] 500 mg PO TID 40 Days #120 tab Please Follow Up With: PCP When: 1-2 weeks Please Follow Up With: [facility] - urology When: 2-3 weeks Please Follow Up With: Clinic,Wound When: 1 week Proposed Discharge Date: 07/07/17
--- NOTE | 2017-07-07 08:31 | PCM.DC.SUM ---
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 (Acute) Diabetic foot infection (Acute) Malfunction of indwelling urinary catheter (Acute) Date of Admission: 07/04/17 Date of Discharge: 07/07/17 - Primary Discharge Diagnosis Active and Suspected Problems Contracture, right ankle (Acute) Cellulitis of right foot (Acute) Type 2 diabetes mellitus with diabetic polyneuropathy (Acute) 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 (Acute) Diabetic foot infection (Acute) Malfunction of indwelling urinary catheter (Acute) - Secondary Discharge Diagnosis Chronic Problems KAROLINA (obstructive sleep apnea) (Chronic) Pressure ulcer of left hip, stage 4 (Chronic) L89.224 recurrent left ischial/trochanteric pressure sore, Stage IV Anemia (Chronic) Obesity (Chronic) Allergic rhinitis (Chronic) Hypertension (Chronic) Quadriplegia (Chronic) G82.50 Stage 4 pressure ulcer (Chronic) Stage IV pressure ulcer of left buttock (Chronic) L89.324 recurrent left ischial/trochanteric pressure sore, Stage IV Other chronic osteomyelitis, other site (Chronic) M86.68 History of methicillin resistant Staphylococcus aureus infection (Chronic) Z86.14 Mild protein-calorie malnutrition (Chronic) malnutrition, mild, unspecified Non-pressure chronic ulcer of buttock (Chronic) nonhealing ulcer left perianal area after a myocutaneous flap 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 Degenerative changes. Osteopenia. Electronically Signed: Edmund Gutierrez MD at 14:20 EST Tel [phone], Service support , Consultations 07/04/17 15:00 Consult: Onc/Wound/public space attendant Routine Comment: wounds to bilateral heels, sacrum Olga Griffin [facility] Operations: None, - - 07/29/16 - Excision recurrent left trochanteric pressure sore, Stage IV, with partial ostectomy for osteomyelitis. Reconstruction with left inferior gluteal fasciocutaneous bilobed transposition flap. Procedures: None Summary of Care Provided: The patient is a 67 year old M sent from the wound care center for osteomyelitis of the right heel. Patient had a CAT scan that showed some cellulitis but no overt ostium mellitus. But it was noted that from podiatry's initial exam that there was bony involvement so, therefore, patient would have diagnosis of osteomyelitis. Patient was seen by Dr. Griffin, of podiatry, and Dr. Espinoza, of infectious disease. Patient did have some debridement by Dr. Griffin. Dr. Espinoza recommended a 6 week course of doxycycline, amoxicillin and Flagyl; all oral. Patient will further follow-up with wound care. Patient and also had issues in regards to his suprapubic catheter clogging. Patient had had a changed recently and then became clogged about 2 weeks later. Patient had a suprapubic catheter changed over while he was here and seen in consultation by urology here. Patient did note improvement though was not as good as flow is anticipated. Patient is to follow-up with Dr. Myers, his urologist, as outpatient. 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 Patient does have [id number] care at home. Plan is for the patient to go home with home care. [] Discharge Diet: 1800 Calorie Control Diet Discharge Activity: - - return to prior level of activity May resume sexual activity in: No Restrictions Call your doctor if you observe: Fever of 101 or Higher, Inability to urinate, Shortness of breath Home Medications: Medications to take at Discharge Multivitamins,Therapeutic [Multivitamin] 1 tablet PO DAILY 02/04/14 Albuterol Aerosols [Ventolin Aerosols] 2.5 mg INHALATION Q4H PRN PRN 07/02/14 Cholecalciferol (VIT D3) [Vitamin D3] 1,000 unit PO DAILY 07/02/14 Hydrochlorothiazide [Hctz] 25 mg PO DAILY 07/02/14 Ascorbic Acid [Vitamin C] 1,000 mg PO BID 07/09/14 Acetaminophen [Tylenol] 1,000 mg PO Q8H PRN PRN #0 tablet 12/23/14 Dextran 70/He-Cell [Tears Naturale, Artificial Tears] 1 drop EACH EYE Q1H PRN PRN #0 bottle 12/23/14 Oxybutynin [Ditropan] 5 mg PO TID PRN PRN 03/18/16 Insulin Aspart [Novolog Flexpen] See Protocol [facility] TIDCM 06/04/16 Sodium Chloride 0.65% [[place] Nasal [place]] 2 spray NASAL DAILY PRN PRN 06/04/16 Guaifenesin [Mucinex] 1,200 mg PO BID PRN 07/27/16 Potassium Chloride [K-Dur] 20 meq PO DAILYCM 07/27/16 Oxycodone [Oxyir] 5 mg PO 4X/DAY PRN PRN #40 tablet 08/12/16 Clonidine HCl [Catapres] 0.1 mg PO BID PRN 11/22/16 Cranberry Conc/Ascorbic Acid [Cranberry 6,000 mg Softgel] 4 each PO DAILY 11/22/16 Loratadine [Claritin] 10 mg PO DAILY PRN 11/22/16 Promethazine HCl 25 mg PO Q4H PRN PRN 11/22/16 Baclofen [Lioresal] 20 mg PO TID 07/04/17 Docusate Sodium [Colace] 100 mg PO QHS 07/04/17 Gabapentin [Neurontin] 100 mg PO TID 07/04/17 Psyllium Husk [Fiber] 0.4 gm PO BID 07/04/17 Amoxicillin 500 mg PO TID 40 Days #120 tab 07/06/17 Doxycycline 100 mg PO BID 40 Days #80 cap 07/06/17 Metronidazole [Flagyl] 500 mg PO TID 40 Days #120 tab 07/06/17 Following Prescrptions Were Given to Patient: Doxycycline 100 mg PO BID 40 Days #80 cap Amoxicillin 500 mg PO TID 40 Days #120 tab Metronidazole [Flagyl] 500 mg PO TID 40 Days #120 tab Please Follow Up With: PCP When: 1-2 weeks Please Follow Up With: [facility] - urology When: 2-3 weeks Please Follow Up With: Clinic,Wound When: 1 week Disposition: Home with Home Health Minutes spent on discharge:: 32 Patient Condition:: Fair Meaningful Use Info Meaningful Use Diagnoses (Choose all that apply): None applicable Code Visit Inpatient E&M: [id number] [facility] Hosp L3
--- NOTE | 2017-07-07 08:35 | DS.PCM_ITS ---
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 (Acute) Diabetic foot infection (Acute) Malfunction of indwelling urinary catheter (Acute) Date of Admission: 07/04/17 Date of Discharge: 07/07/17 - Primary Discharge Diagnosis Active and Suspected Problems Contracture, right ankle (Acute) Cellulitis of right foot (Acute) Type 2 diabetes mellitus with diabetic polyneuropathy (Acute) 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 (Acute) Diabetic foot infection (Acute) Malfunction of indwelling urinary catheter (Acute) - Secondary Discharge Diagnosis Chronic Problems KAROLINA (obstructive sleep apnea) (Chronic) Pressure ulcer of left hip, stage 4 (Chronic) L89.224 recurrent left ischial/trochanteric pressure sore, Stage IV Anemia (Chronic) Obesity (Chronic) Allergic rhinitis (Chronic) Hypertension (Chronic) Quadriplegia (Chronic) G82.50 Stage 4 pressure ulcer (Chronic) Stage IV pressure ulcer of left buttock (Chronic) L89.324 recurrent left ischial/trochanteric pressure sore, Stage IV Other chronic osteomyelitis, other site (Chronic) M86.68 History of methicillin resistant Staphylococcus aureus infection (Chronic) Z86.14 Mild protein-calorie malnutrition (Chronic) malnutrition, mild, unspecified Non-pressure chronic ulcer of buttock (Chronic) nonhealing ulcer left perianal area after a myocutaneous flap 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 Degenerative changes. Osteopenia. Electronically Signed: Edmund Gutierrez MD at 14:20 EST Tel [phone], Service support , Consultations 07/04/17 15:00 Consult: Onc/Wound/kiln placer Routine Comment: wounds to bilateral heels, sacrum Olga Griffin [facility] Operations: None, - - 07/29/16 - Excision recurrent left trochanteric pressure sore, Stage IV, with partial ostectomy for osteomyelitis. Reconstruction with left inferior gluteal fasciocutaneous bilobed transposition flap. Procedures: None Summary of Care Provided: The patient is a 67 year old M sent from the wound care center for osteomyelitis of the right heel. Patient had a CAT scan that showed some cellulitis but no overt ostium mellitus. But it was noted that from podiatry's initial exam that there was bony involvement so, therefore, patient would have diagnosis of osteomyelitis. Patient was seen by Dr. Griffin, of podiatry, and Dr. Espinoza, of infectious disease. Patient did have some debridement by Dr. Griffin. Dr. Espinoza recommended a 6 week course of doxycycline, amoxicillin and Flagyl; all oral. Patient will further follow-up with wound care. Patient and also had issues in regards to his suprapubic catheter clogging. Patient had had a changed recently and then became clogged about 2 weeks later. Patient had a suprapubic catheter changed over while he was here and seen in consultation by urology here. Patient did note improvement though was not as good as flow is anticipated. Patient is to follow-up with Dr. Myers, his urologist, as outpatient. 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 Patient does have [id number] care at home. Plan is for the patient to go home with home care. [] Discharge Diet: 1800 Calorie Control Diet Discharge Activity: - - return to prior level of activity May resume sexual activity in: No Restrictions Call your doctor if you observe: Fever of 101 or Higher, Inability to urinate, Shortness of breath Home Medications: Medications to take at Discharge Multivitamins,Therapeutic [Multivitamin] 1 tablet PO DAILY 02/04/14 Albuterol Aerosols [Ventolin Aerosols] 2.5 mg INHALATION Q4H PRN PRN 07/02/14 Cholecalciferol (VIT D3) [Vitamin D3] 1,000 unit PO DAILY 07/02/14 Hydrochlorothiazide [Hctz] 25 mg PO DAILY 07/02/14 Ascorbic Acid [Vitamin C] 1,000 mg PO BID 07/09/14 Acetaminophen [Tylenol] 1,000 mg PO Q8H PRN PRN #0 tablet 12/23/14 Dextran 70/He-Cell [Tears Naturale, Artificial Tears] 1 drop EACH EYE Q1H PRN PRN #0 bottle 12/23/14 Oxybutynin [Ditropan] 5 mg PO TID PRN PRN 03/18/16 Insulin Aspart [Novolog Flexpen] See Protocol [facility] TIDCM 06/04/16 Sodium Chloride 0.65% [[place] Nasal [place]] 2 spray NASAL DAILY PRN PRN 06/04/16 Guaifenesin [Mucinex] 1,200 mg PO BID PRN 07/27/16 Potassium Chloride [K-Dur] 20 meq PO DAILYCM 07/27/16 Oxycodone [Oxyir] 5 mg PO 4X/DAY PRN PRN #40 tablet 08/12/16 Clonidine HCl [Catapres] 0.1 mg PO BID PRN 11/22/16 Cranberry Conc/Ascorbic Acid [Cranberry 6,000 mg Softgel] 4 each PO DAILY Loratadine [Claritin] 10 mg PO DAILY PRN 11/22/16 Promethazine HCl 25 mg PO Q4H PRN PRN 11/22/16 Baclofen [Lioresal] 20 mg PO TID 07/04/17 Docusate Sodium [Colace] 100 mg PO QHS 07/04/17 Gabapentin [Neurontin] 100 mg PO TID 07/04/17 Psyllium Husk [Fiber] 0.4 gm PO BID 07/04/17 Amoxicillin 500 mg PO TID 40 Days #120 tab 07/06/17 Doxycycline 100 mg PO BID 40 Days #80 cap 07/06/17 Metronidazole [Flagyl] 500 mg PO TID 40 Days #120 tab 07/06/17 Following Prescrptions Were Given to Patient: Doxycycline 100 mg PO BID 40 Days #80 cap Amoxicillin 500 mg PO TID 40 Days #120 tab Metronidazole [Flagyl] 500 mg PO TID 40 Days #120 tab Please Follow Up With: PCP When: 1-2 weeks Please Follow Up With: [facility] - urology When: 2-3 weeks Please Follow Up With: Clinic,Wound When: 1 week Disposition: Home with Home Health Minutes spent on discharge:: 32 Patient Condition:: Fair Meaningful Use Info Meaningful Use Diagnoses (Choose all that apply): None applicable Code Visit Inpatient E&M: [id number] [facility] Hosp L3
[2017-07-07] MEDS: Glucerna Shake 120 ML LIQUID PO ×2 (08:43→12:28)
[2017-07-07] MEDS: Multivitamins,Therapeutic Tablet 1 TABLET PO (08:43)
[2017-07-07] MEDS: Psyllium 1 PACKET PO (11:02)
[2017-07-07] MEDS: Enoxaparin 40 MG/0.4 ML Syringe SC (11:02)
[2017-07-07] MEDS: hydroCHLOROthiazide 25 MG Tablet PO (11:02)
[2017-07-07] MEDS: Ascorbic Acid 500 MG Tablet 1000 MG PO (11:02)
[2017-07-07 12:05] LABS: Bedside Glucose 163 mg/dL (70-110)
[2017-07-07 13:34] VITALS: BP 110/69; PULSE 70; RESP 18; TEMP 36.3; O2SAT 94
--- NOTE | 2017-07-07 18:04 | PCA ---
Call placed to [place] in regards to special mattress. Spoke with Tian who confirmed removal was set up, confirmation number is [id number].
== END 2017-07-07 13:25 | disposition home health service (06) | DRG 637 ==
LOC: MS2 13:53
PROVIDERS: Internal Medicine; Physician Assistant
DX: E11.621 Type 2 diabetes mellitus with foot ulcer (principal); L89.614 Pressure ulcer of right heel, stage 4; L89.224 Pressure ulcer of left hip, stage 4; G82.50 Quadriplegia, unspecified; E11.42 Type 2 diabetes mellitus with diabetic polyneuropathy; E44.1 Mild protein-calorie malnutrition; L89.324 Pressure ulcer of left buttock, stage 4; L03.115 Cellulitis of right lower limb; B95.61 Methicillin susceptible Staphylococcus aureus infection as the cause of diseases classified elsewhere; B96.4 Proteus (mirabilis) (morganii) as the cause of diseases classified elsewhere; E11.69 Type 2 diabetes mellitus with other specified complication; T83.018A Breakdown (mechanical) of other urinary catheter, initial encounter; J30.9 Allergic rhinitis, unspecified; I10 Essential (primary) hypertension; M24.571 Contracture, right ankle; M21.512 Acquired clawhand, left hand; M21.511 Acquired clawhand, right hand; Z68.30 Body mass index [BMI] 30.0-30.9, adult; G47.33 Obstructive sleep apnea (adult) (pediatric); D64.9 Anemia, unspecified; E66.9 Obesity, unspecified; Z79.4 Long term (current) use of insulin; Z79.899 Other long term (current) drug therapy; Z87.440 Personal history of urinary (tract) infections; Z86.14 Personal history of Methicillin resistant Staphylococcus aureus infection; Z87.891 Personal history of nicotine dependence
CPT/HCPCS: 36415; 73700; 80048; 81001; 82962; 83735; 85025; 85652; 86140; 87040; 87077; 87086; 87088; 87186; 97110; 97161; 97166; A4216; J0295

== ENCOUNTER 2017-07-14 10:30 | Outpatient (RCR) | payer MEDICARE, OTHER, SELFPAY ==
[2017-06-16 14:22] VITALS: BP 147/85
[2017-06-23 01:13] VITALS: PULSE 66; RESP 16; TEMP 36
[2017-06-30 13:40] VITALS: BP 118/69; PULSE 75; RESP 18; TEMP 36.2; BMI 26.6
--- NOTE | 2017-06-30 16:05 | PCM.WC.PN ---
(1) Diabetic ulcer of right foot Status: Acute Current Visit: Yes Qualifiers: Diabetic foot ulcer location: heel Diabetes mellitus type: type 2 Non-pressure ulcer stage: with bone involvement without evidence of necrosis Qualified Code(s): E11.621 - Type 2 diabetes mellitus with foot ulcer; L97.416 - Non-pressure chronic ulcer of right heel and midfoot with bone involvement without evidence of necrosis Code(s): E11.621 - Type 2 diabetes mellitus with foot ulcer; L97.519 - Non-pressure chronic ulcer of other part of right foot with unspecified severity Comment: Marcial stage III (2) Suspected deep tissue injury of unknown depth of heel Status: Acute Current Visit: Yes Code(s): R68.89 - Other general symptoms and signs Comment: left heel (3) Chronic incomplete quadriplegia Status: Acute Current Visit: Yes Code(s): G82.50 - Quadriplegia, unspecified (4) Diabetes mellitus Status: Acute Current Visit: Yes Code(s): E11.9 - Type 2 diabetes mellitus without complications Comment: diet control, new diagnosis (5) History of spinal cord injury Status: Acute Current Visit: No Code(s): Z87.828 - Personal history of other (healed) physical injury and trauma (6) History of methicillin resistant Staphylococcus aureus infection Status: Chronic Current Visit: Yes Code(s): Z86.14 - Personal history of Methicillin resistant Staphylococcus aureus infection Comment: Z86.14 (7) Hypertension Status: Chronic Current Visit: No Code(s): I10 - Essential (primary) hypertension Type of Wound Date of Service: 06/30/17 Chief Complaint: Ulcer on right heel, purple area left heel History of Wound: This is a 67-year-old white male who presents to the wound care center today for evaluation of a right heel ulcer and left heel discoloration. He has a past medical history as described above. The patient states that on the night of 06/06/2017, his heel protectors came off all night in bed and shortly after he noted an ulceration on his right heel and a purplish discoloration on his left heel. He states that there has been yellow drainage coming from his right heel and that yesterday he started using Granulex and Aquacel silver on the right heel. He denies any pain or foul-smelling discharge, however he does state that he has decreased sensation to his lower extremities due to his history of a spinal cord injury in high school. He currently has a suprapubic catheter as well due to his history of recurrent UTIs and obstructive uropathy. He also notes that his low air loss hospital bed is needing to be repaired so he is unable to use this at this time. The patient does state that he has a history of ulcerations on his right heel in the past where he had to be seen at a wound care center and ended up needing to have skin substitutes applied. He does note that he lives home alone and that he receives home health throughout the week. He otherwise denies any signs of systemic infection and denies any fever, chills, nausea, vomiting, chest pain or pressure, syncope or presyncopal episodes. Progress of Wound: Deteriorated, no foul-smelling discharge or exudate at this time. Covered with slough and eschar prior to debridement, probe now reaches to bone - Physical Exam Vital Signs Temp Pulse Resp BP 97.1 F L 75 18 118/69 06/30/17 13:40 06/30/17 13:40 06/30/17 13:40 06/30/17 13:40 General: Alert, Oriented x3, Cooperative, No apparent distress Cardiovascular: Regular rate Extremities: No cyanosis, No edema, Diminished Peripheral Pulses Skin: Ulcer/ Wound - Right DFU Ramy grade 3-eschar and adherent Nataly covering ulceration, after debridement the area was probed to exposed bone, moderate amount of serous drainage present, no signs of surrounding cellulitis or infection, however due to bone exposure suspicious for osteomyelitis Left heel small purple area present skin intact Wound Measurements and Assessment - Nurse 1 - General Ulcer Measurement Start: 06/30/17 13:40 Freq: Status: Active Protocol: Activity Type Activity Date Activity User E-Sign Co-Sign Detail Recorded Client Recorded Date Recorded By Document 06/30/17 13:40 TM [id number] 06/30/17 13:43 06/30/17 13:40 Wound Center Nurse 1 [Ulcer Assessment Protocol: CHANTELLE.WD.LOC] #11- RT HEEL -Combined with other wound No -Current Size (cm) - Length 3.0 -Current Size (cm) - Width 2.0 -Current Size (cm) - Depth 0.1 -Total Square Cm 6.00 -Photo Taken No -Epithelialization None Present -Tunneling No -Undermining/Tunneling No -Circular Undermining No -Classification - Thickness Full Thickness without Exposed Support Structure -Exudate Amt None Present (0 %) -Wound Margin Distinct, Outline Attached -Granulation Amt None Present (0 %) -Granulation Quality N/A -Slough/Fibrin Yes -Necrosis Amt Large (67-100%) -Necrotic Tissue Type Adherent Slough -Structure Exposed Fascia Fat Layer Exposed -Texture (Francia-wound Skin Appearance) Callus Friable Scarring -Moisture (Francia-wound Skin Appearance Dry/Scaly ) -Color (Francia-wound Skin Appearance) No Abnormality -Temperature (Francia-wound Skin Cool/Cold Appearance) -Tenderness on Palpation (Fracnia-wound No Skin Appearance) -Ulcer Cleansing Rinsed/ Irrigated with Saline -Foul Odor after Cleansing No -Anesthetic Used 5% Lidocaine Gel [Edema Assessment] -Lower Limb Edema Present No WC - Nurse 2 - General Ulcer CM Notes Start: 06/30/17 13:40 Freq: Status: Active Protocol: Activity Type Activity Date Activity User E-Sign Co-Sign Detail Recorded Client Recorded Date Recorded By Document 06/30/17 14:53 DV [id number] 06/30/17 15:16 DV 06/30/17 14:53 Wound Center Nurse 2 [Procedure/Treatment] #11- RT HEEL -Time 15:10 -Correct Patient Yes -Correct Side, Site, Position Yes -Correct Procedure Yes -Procedure Performed Yes -Type of Procedure Debridement -Clinical Debridement Subcutaneous -Post Debridement Size (cm) - Length 3.2 -Post Debridement Size (cm) - Width 3.0 -Post Debridement Size (cm) - Depth 0.4 -Total Square Cm 9.60 -Wound/Ulcer Outcome Not Healed -Ulcer Cleansing Rinsed/ Irrigated with Saline -Foul Odor after Cleansing No -Bioengineered Tissue No -Bleeding Controlled with Pressure -Treatment Response Procedure Tolerated Well [See Physician Procedure note for Specifics] Pain Scale: 0-10 Numeric [Pain] -Is Patient Pain Free? Yes Psych/Mental Status: Normal Affect, Appropriate, Alert and oriented to time, place, person, mood and affect Debridement Note Post-Debridement Measurements/Treatment WC - Nurse 2 - General Ulcer CM Notes Start: 06/30/17 13:40 Freq: Status: Active Protocol: Activity Type Activity Date Activity User E-Sign Co-Sign Detail Recorded Client Recorded Date Recorded By Document 06/30/17 14:53 DV [id number] 06/30/17 15:16 DV 06/30/17 14:53 Wound Center Nurse 2 #11- RT HEEL -Time 15:10 -Correct Patient Yes -Correct Side, Site, Position Yes -Correct Procedure Yes -Procedure Performed Yes -Type of Procedure Debridement -Clinical Debridement Subcutaneous -Post Debridement Size (cm) - Length 3.2 -Post Debridement Size (cm) - Width 3.0 -Post Debridement Size (cm) - Depth 0.4 -Total Square Cm 9.60 -Wound/Ulcer Outcome Not Healed -Ulcer Cleansing Rinsed/ Irrigated with Saline -Foul Odor after Cleansing No -Bioengineered Tissue No -Bleeding Controlled with Pressure -Treatment Response Procedure Tolerated Well Pain Scale: 0-10 Numeric Is Patient Pain Free? Yes Wound debrided: Right DFU Laterality: Right Wound Grade/Stage: Stage III Type of Debridement: Excisional debridement Anesthesia Used: 4% Lidocaine Solution Depth: to bone Percentage of wound debrided: 100 Instrument Used: 5mm curette, Forceps, - - Scissors Tissue Removed: Adherent Nataly and hyperkeratotic edges and eschar Severity: Necrosis of Bone Amount of bleeding with debridement: Mild Bleeding Controlled with: Pressure Patient tolerated procedure well Assessment/Plan Active Problems Chronic incomplete quadriplegia (Acute) Suspected deep tissue injury of unknown depth of heel (Acute) left heel Diabetic ulcer of right foot (Acute) Marcial stage III Diabetes mellitus (Acute) diet control, new diagnosis History of methicillin resistant Staphylococcus aureus infection (Chronic) Z86.14 Assessment: DFU right heel, suspected deep tendon injury left heel Plan: The patient does have a diabetic foot ulcer Ramy stage III which he is being seen for today and evaluated at the wound care center. He also has a suspected deep tissue injury of the left heel that is not open which will continue to be monitored. He missed his last appointment to the wound center. A bone debridement was performed today of the right diabetic foot ulcer and ulcer was probed to bone. Cultures were reviewed which were positive for rare Proteus mirabilis, enterococcus, and anaerobic cocci. Baseline blood work was ordered and reviewed, and vascular studies and KIMBERLEY pending as well. Discussed with patient the importance of offloading including the use of his heel protectors, which he has not picked up yet. Prescription written for medical grade use heel protectors previously. Also instructed patient that it would be beneficial for him to have his low loss mattress repaired. Educated on the importance of nutrition and blood sugar control on his wound healing. Aquacel silver covered with Adaptic and gauze dressings daily ordered. Given his previous history of osteomyelitis, an x-ray of the foot was ordered previously and only showed osteoarthritis, now that bone is exposed a CT was ordered to rule out osteomyelitis as well. MRI unable to be ordered due to patient's history of metal stents. Due to the severity of the patient's DFU, referral made to podiatry. Patient to follow-up in 1 week. Discussed red flag symptoms of systemic infection that require urgent medical attention, patient verbalized understanding. Myrna disclaimer Code Visit 111xxx-113xx: [id number] Char bone 20 sq cm/<
--- NOTE | 2017-07-01 16:17 | PN.PCM_ITS ---
(1) Diabetic ulcer of right foot Status: Acute Current Visit: Yes Qualifiers: Diabetic foot ulcer location: heel Diabetes mellitus type: type 2 Non- pressure ulcer stage: with bone involvement without evidence of necrosis Qualified Code(s): E11.621 - Type 2 diabetes mellitus with foot ulcer; L97.416 - Non-pressure chronic ulcer of right heel and midfoot with bone involvement without evidence of necrosis Code(s): E11.621 - Type 2 diabetes mellitus with foot ulcer; L97.519 - Non- pressure chronic ulcer of other part of right foot with unspecified severity Comment: Marcial stage III (2) Suspected deep tissue injury of unknown depth of heel Status: Acute Current Visit: Yes Code(s): R68.89 - Other general symptoms and signs Comment: left heel (3) Chronic incomplete quadriplegia Status: Acute Current Visit: Yes Code(s): G82.50 - Quadriplegia, unspecified (4) Diabetes mellitus Status: Acute Current Visit: Yes Code(s): E11.9 - Type 2 diabetes mellitus without complications Comment: diet control, new diagnosis (5) History of spinal cord injury Status: Acute Current Visit: No Code(s): Z87.828 - Personal history of other (healed) physical injury and trauma (6) History of methicillin resistant Staphylococcus aureus infection Status: Chronic Current Visit: Yes Code(s): Z86.14 - Personal history of Methicillin resistant Staphylococcus aureus infection Comment: Z86.14 (7) Hypertension Status: Chronic Current Visit: No Code(s): I10 - Essential (primary) hypertension Type of Wound Date of Service: 06/30/17 Chief Complaint: Ulcer on right heel, purple area left heel History of Wound: This is a 67-year-old white male who presents to the wound care center today for evaluation of a right heel ulcer and left heel discoloration. He has a past medical history as described above. The patient states that on the night of 06/06/2017, his heel protectors came off all night in bed and shortly after he noted an ulceration on his right heel and a purplish discoloration on his left heel. He states that there has been yellow drainage coming from his right heel and that yesterday he started using Granulex and Aquacel silver on the right heel. He denies any pain or foul- smelling discharge, however he does state that he has decreased sensation to his lower extremities due to his history of a spinal cord injury in high school. He currently has a suprapubic catheter as well due to his history of recurrent UTIs and obstructive uropathy. He also notes that his low air loss hospital bed is needing to be repaired so he is unable to use this at this time. The patient does state that he has a history of ulcerations on his right heel in the past where he had to be seen at a wound care center and ended up needing to have skin substitutes applied. He does note that he lives home alone and that he receives home health throughout the week. He otherwise denies any signs of systemic infection and denies any fever, chills, nausea, vomiting, chest pain or pressure, syncope or presyncopal episodes. Progress of Wound: Deteriorated, no foul-smelling discharge or exudate at this time. Covered with slough and eschar prior to debridement, probe now reaches to bone - Physical Exam Vital Signs Temp Pulse Resp BP 97.1 F L 75 18 118/69 06/30/17 13:40 06/30/17 13:40 06/30/17 13:40 06/30/17 13:40 General: Alert, Oriented x3, Cooperative, No apparent distress Cardiovascular: Regular rate Extremities: No cyanosis, No edema, Diminished Peripheral Pulses Skin: Ulcer/ Wound - Right DFU Ramy grade 3-eschar and adherent Nataly covering ulceration, after debridement the area was probed to exposed bone, moderate amount of serous drainage present, no signs of surrounding cellulitis or infection, however due to bone exposure suspicious for osteomyelitis Left heel small purple area present skin intact Wound Measurements and Assessment - Nurse 1 - General Ulcer Measurement Start: 06/30/17 13:40 Freq: Status: Active Protocol: Activity Type Activity Date Activity User E-Sign Co-Sign Detail Recorded Client Recorded Date Recorded By Document 06/30/17 13:40 TM [id number] 06/30/17 13:43 06/30/17 13:40 Wound Center Nurse 1 [Ulcer Assessment Protocol: CHANTELLE.WD.LOC] #11- RT HEEL -Combined with other wound No -Current Size (cm) - Length 3.0 -Current Size (cm) - Width 2.0 -Current Size (cm) - Depth 0.1 -Total Square Cm 6.00 -Photo Taken No -Epithelialization None Present -Tunneling No -Undermining/Tunneling No -Circular Undermining No -Classification - Thickness Full Thickness without Exposed Support Structure -Exudate Amt None Present (0 %) -Wound Margin Distinct, Outline Attached -Granulation Amt None Present (0 %) -Granulation Quality N/A -Slough/Fibrin Yes -Necrosis Amt Large (67-100%) -Necrotic Tissue Type Adherent Slough -Structure Exposed Fascia Fat Layer Exposed -Texture (Francia-wound Skin Appearance) Callus Friable Scarring -Moisture (Francia-wound Skin Appearance Dry/Scaly ) -Color (Francia-wound Skin Appearance) No Abnormality -Temperature (Francia-wound Skin Cool/Cold Appearance) -Tenderness on Palpation (Francia-wound No Skin Appearance) -Ulcer Cleansing Rinsed/ Irrigated with Saline -Foul Odor after Cleansing No -Anesthetic Used 5% Lidocaine Gel [Edema Assessment] -Lower Limb Edema Present No WC - Nurse 2 - General Ulcer CM Notes Start: 06/30/17 13:40 Freq: Status: Active Protocol: Activity Type Activity Date Activity User E-Sign Co-Sign Detail Recorded Client Recorded Date Recorded By Document 06/30/17 14:53 DV [id number] 06/30/17 15:16 DV 06/30/17 14:53 Wound Center Nurse 2 [Procedure/Treatment] #11- RT HEEL -Time 15:10 -Correct Patient Yes -Correct Side, Site, Position Yes -Correct Procedure Yes -Procedure Performed Yes -Type of Procedure Debridement -Clinical Debridement Subcutaneous -Post Debridement Size (cm) - Length 3.2 -Post Debridement Size (cm) - Width 3.0 -Post Debridement Size (cm) - Depth 0.4 -Total Square Cm 9.60 -Wound/Ulcer Outcome Not Healed -Ulcer Cleansing Rinsed/ Irrigated with Saline -Foul Odor after Cleansing No -Bioengineered Tissue No -Bleeding Controlled with Pressure -Treatment Response Procedure Tolerated Well [See Physician Procedure note for Specifics] Pain Scale: 0-10 Numeric [Pain] -Is Patient Pain Free? Yes Psych/Mental Status: Normal Affect, Appropriate, Alert and oriented to time, place, person, mood and affect Debridement Note Post-Debridement Measurements/Treatment WC - Nurse 2 - General Ulcer CM Notes Start: 06/30/17 13:40 Freq: Status: Active Protocol: Activity Type Activity Date Activity User E-Sign Co-Sign Detail Recorded Client Recorded Date Recorded By Document 06/30/17 14:53 DV [id number] 06/30/17 15:16 DV 06/30/17 14:53 Wound Center Nurse 2 #11- RT HEEL -Time 15:10 -Correct Patient Yes -Correct Side, Site, Position Yes -Correct Procedure Yes -Procedure Performed Yes -Type of Procedure Debridement -Clinical Debridement Subcutaneous -Post Debridement Size (cm) - Length 3.2 -Post Debridement Size (cm) - Width 3.0 -Post Debridement Size (cm) - Depth 0.4 -Total Square Cm 9.60 -Wound/Ulcer Outcome Not Healed -Ulcer Cleansing Rinsed/ Irrigated with Saline -Foul Odor after Cleansing No -Bioengineered Tissue No -Bleeding Controlled with Pressure -Treatment Response Procedure Tolerated Well Pain Scale: 0-10 Numeric Is Patient Pain Free? Yes Wound debrided: Right DFU Laterality: Right Wound Grade/Stage: Stage III Type of Debridement: Excisional debridement Anesthesia Used: 4% Lidocaine Solution Depth: to bone Percentage of wound debrided: 100 Instrument Used: 5mm curette, Forceps, - - Scissors Tissue Removed: Adherent Nataly and hyperkeratotic edges and eschar Severity: Necrosis of Bone Amount of bleeding with debridement: Mild Bleeding Controlled with: Pressure Patient tolerated procedure well Assessment/Plan Active Problems Chronic incomplete quadriplegia (Acute) Suspected deep tissue injury of unknown depth of heel (Acute) left heel Diabetic ulcer of right foot (Acute) Marcial stage III Diabetes mellitus (Acute) diet control, new diagnosis History of methicillin resistant Staphylococcus aureus infection (Chronic) Z86.14 Assessment: DFU right heel, suspected deep tendon injury left heel Plan: The patient does have a diabetic foot ulcer Ramy stage III which he is being seen for today and evaluated at the wound care center. He also has a suspected deep tissue injury of the left heel that is not open which will continue to be monitored. He missed his last appointment to the wound center. A bone debridement was performed today of the right diabetic foot ulcer and ulcer was probed to bone. Cultures were reviewed which were positive for rare Proteus mirabilis, enterococcus, and anaerobic cocci. Baseline blood work was ordered and reviewed, and vascular studies and KIMBERLEY pending as well. Discussed with patient the importance of offloading including the use of his heel protectors, which he has not picked up yet. Prescription written for medical grade use heel protectors previously. Also instructed patient that it would be beneficial for him to have his low loss mattress repaired. Educated on the importance of nutrition and blood sugar control on his wound healing. Aquacel silver covered with Adaptic and gauze dressings daily ordered. Given his previous history of osteomyelitis, an x-ray of the foot was ordered previously and only showed osteoarthritis, now that bone is exposed a CT was ordered to rule out osteomyelitis as well. MRI unable to be ordered due to patient's history of metal stents. Due to the severity of the patient's DFU, referral made to podiatry. Patient to follow-up in 1 week. Discussed red flag symptoms of systemic infection that require urgent medical attention, patient verbalized understanding. Myrna disclaimer Code Visit [id number]: 09166 Char bone 20 sq cm/<
[2017-07-14 11:05] VITALS: BP 107/64; PULSE 73; RESP 20; TEMP 36.7; BMI 26.6
--- NOTE | 2017-07-14 12:54 | PCM.WC.PN ---
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 (2) Type 2 diabetes mellitus with diabetic polyneuropathy Status: Acute Current Visit: No Code(s): E11.42 - Type 2 diabetes mellitus with diabetic polyneuropathy (3) Chronic incomplete quadriplegia Status: Acute Current Visit: No Code(s): G82.50 - Quadriplegia, unspecified (4) Malnutrition Status: Acute Current Visit: Yes Code(s): E46 - Unspecified protein-calorie malnutrition (5) Delayed wound healing Status: Acute Current Visit: Yes Code(s): T14.8XXD - Other injury of unspecified body region, subsequent encounter Type of Wound Date of Service: 07/14/17 Chief Complaint: Ulcer on right heel History of Wound: This is a 67-year-old white male who presents to the wound care center today for evaluation of a right heel ulcer. He has a past medical history as described above. The patient states that on the night of 06/06/2017, his heel protectors came off all night in bed and shortly after he noted an ulceration on his right heel and a purplish discoloration on his left heel. He states that there has been yellow drainage coming from his right heel and that yesterday he started using Granulex and Aquacel silver on the right heel. He denies any pain or foul-smelling discharge, however he does state that he has decreased sensation to his lower extremities due to his history of a spinal cord injury in high school. He currently has a suprapubic catheter as well due to his history of recurrent UTIs and obstructive uropathy. He also notes that his low air loss hospital bed is needing to be repaired so he is unable to use this at this time. The patient does state that he has a history of ulcerations on his right heel in the past where he had to be seen at a wound care center and ended up needing to have skin substitutes applied. He does note that he lives home alone and that he receives home health throughout the week. Patient was then referred to Dr. Gan at his office, who subsequently admitted the patient on Jul 04, for IV antibiotics and evaluation by ID. Infectious disease planned to d/c patient home on doxy 100mg bid, amoxicillin 500mg tid, and flagyl 500mg tid for planned 6 week course. He has since discharge been receiving daily dressing changes consisting of aquacel ag and a dry sterile dressing as well as wearing his PRAFO boots at all times. He otherwise denies any signs of systemic infection and denies any fever, chills, nausea, vomiting, chest pain or pressure, syncope or presyncopal episodes. Progress of Wound: Ulcer appears to be improved since last week in the hospital with more granular tissue appreciated and less maceration noted. - Physical Exam Vital Signs Temp Pulse Resp BP 98.0 F 73 20 H 107/64 07/14/17 11:05 07/14/17 11:05 07/14/17 11:05 07/14/17 11:05 General: Alert, Oriented x3, Cooperative, No apparent distress Extremities: Capillary Refill Less than 3 Seconds, Diminished Peripheral Pulses Skin: Ulcer/ Wound - Ulcer appreciated to right posterior heel. Measurements noted below. Ulcer base is a mixture of granular base, slough, fibrin, with slight hyperkeratotic rim. Some slight undermining noted to 12 o clock. Very small area of bone covered by small area of tissue to center of ulcer. Looks improved since last week. Still no malodor, no purulence, no surrounding cellulitis, or increaed warmth. Wound Measurements and Assessment WC - Nurse 1 - General Ulcer Measurement Start: 06/30/17 13:40 Freq: Status: Active Protocol: Activity Type Activity Date Activity User E-Sign Co-Sign Detail Recorded Client Recorded Date Recorded By Document 07/14/17 11:05 ROXANA [id number] 07/14/17 11:30 ROXANA 07/14/17 11:05 Wound Center Nurse 1 [Ulcer Assessment] #11- RT HEEL -Combined with other wound No -Current Size (cm) - Length 2.7 -Current Size (cm) - Width 1.2 -Current Size (cm) - Depth 0.1 -Total Square Cm 3.24 -Date of Last Picture (Recall this 07/14/17 field) -Photo Taken Yes -Epithelialization Small 1-33% -Tunneling No -Undermining/Tunneling No -Circular Undermining No -Classification - Thickness Full Thickness without Exposed Support Structure -Change in Wound Grade/Stage No Query Text:If change please identify the Stage/Grade in the comment (ie. S2 G3) -Exudate Amt Small (1-33%) -Exudate Type Serosanguineous -Wound Margin Distinct, Outline Attached -Granulation Amt Small (1-33%) -Granulation Quality Red -Slough/Fibrin Yes -Necrosis Amt Small (1-33%) -Necrotic Tissue Type Adherent Slough -Structure Exposed Fascia Fat Layer Exposed -Moisture (Francia-wound Skin Appearance No Abnormality ) -Color (Francia-wound Skin Appearance) Rubor -Temperature (Francia-wound Skin Cool/Cold Appearance) -Tenderness on Palpation (Francia-wound Yes Skin Appearance) -Ulcer Cleansing Rinsed/ Irrigated with Saline -Foul Odor after Cleansing No -Anesthetic Used 5% Lidocaine Gel WC - Nurse 2 - General Ulcer CM Notes Start: 06/30/17 13:40 Freq: Status: Active Protocol: Activity Type Activity Date Activity User E-Sign Co-Sign Detail Recorded Client Recorded Date Recorded By Document 07/14/17 12:11 MW [id number] 07/14/17 12:12 MW 07/14/17 12:11 Wound Center Nurse 2 [Procedure/Treatment] -Time 12:11 -Correct Patient Yes -Correct Side, Site, Position Yes -Correct Procedure Yes -Procedure Performed Yes -Type of Procedure Debridement -Clinical Debridement Subcutaneous -Post Debridement Size (cm) - Length 2.5 -Post Debridement Size (cm) - Width 1.5 -Post Debridement Size (cm) - Depth 0.2 -Total Square Cm 3.75 -Wound/Ulcer Outcome Not Healed -Ulcer Cleansing Rinsed/ Irrigated with Saline -Foul Odor after Cleansing No -Bioengineered Tissue No -Bleeding Controlled with Pressure -Treatment Response Procedure Tolerated Well [See Physician Procedure note for Specifics] Pain Scale: 0-10 Numeric [Pain] -Is Patient Pain Free? Yes Musculoskeletal: Muscle Wasting, - - bilateral ankle contractures Neurological: - - Patient is incomplete quadriplegic with only very slight sensation to parts of feet. Psych/Mental Status: Normal Affect, Appropriate Debridement Note Post-Debridement Measurements/Treatment WC - Nurse 2 - General Ulcer CM Notes Start: 06/30/17 13:40 Freq: Status: Active Protocol: Activity Type Activity Date Activity User E-Sign Co-Sign Detail Recorded Client Recorded Date Recorded By Document 06/30/17 14:53 DV [id number] 06/30/17 15:16 DV Document 07/14/17 12:11 MW [id number] 07/14/17 12:12 MW 06/30/17 07/14/17 14:53 12:11 Wound Center Nurse 2 #11- RT HEEL -Time 15:10 12:11 -Correct Patient Yes Yes -Correct Side, Site, Position Yes Yes -Correct Procedure Yes Yes -Procedure Performed Yes Yes -Type of Procedure Debridement Debridement -Clinical Debridement Subcutaneous Subcutaneous -Post Debridement Size (cm) - Length 3.2 2.5 -Post Debridement Size (cm) - Width 3.0 1.5 -Post Debridement Size (cm) - Depth 0.4 0.2 -Total Square Cm 9.60 3.75 -Wound/Ulcer Outcome Not Healed Not Healed -Ulcer Cleansing Rinsed/ Rinsed/ Irrigated with Irrigated with Saline Saline -Foul Odor after Cleansing No No -Bioengineered Tissue No No -Bleeding Controlled with Pressure Pressure -Treatment Response Procedure Procedure Tolerated Well Tolerated Well Pain Scale: 0-10 Numeric Is Patient Pain Free? Yes Yes Wound debrided: right posterior heel ulcer Laterality: Right Wound Grade/Stage: 2 Type of Debridement: Excisional debridement Anesthesia Used: 4% Lidocaine Solution Depth: in the subcutaneous layer Percentage of wound debrided: 100 Instrument Used: 3mm curette, #15 blade, Forceps Tissue Removed: slough, fibrin, hyperkeratotic tissue Severity: Fat Layer Exposed Amount of bleeding with debridement: Mild Bleeding Controlled with: Pressure Patient tolerated procedure well Assessment/Plan Active Problems Malnutrition (Acute) Delayed wound healing (Acute) Assessment: Ulcer to posterior right heel. Plan: Patient was examined and evaluated in detail today. Since his discharge last week from the hospital, the patient has been receiving daily dressing changes consisting of aquacel ag, dry sterile dressing, and wearing PRAFO boots at all times. His ulcer looks improved today since last week. The ulcer was carefully debrided as noted in the clinical panel. Following debridement, the site was dressed with aquacel ag, with a padded dry sterile dressing and his PRAFO boots. Patient was again educated on the importance of wearing the offloading PRAFO boots at all times to keep pressure off of his heels. He says he understands. He has home health care to help change dressings daily. He is to continue doxy 100mg bid, amoxicillin 500mg tid, and flagyl 500mg tid for planned 6 week course per infectious disease. He was educated on all signs and symptoms of local and systemic infection and was instructed to go to the ER immediately should he notice any. All questions were answered to the patient's satisfaction. He will follow up in clinic in one week to check on progress, or sooner if needed.
== END 2017-07-20 23:59 ==
LOC: WC 10:30
PROVIDERS: Visit Provider Podiatrist
DX: E11.621 Type 2 diabetes mellitus with foot ulcer (principal); L97.414 Non-pressure chronic ulcer of right heel and midfoot with necrosis of bone; Z86.14 Personal history of Methicillin resistant Staphylococcus aureus infection; G82.50 Quadriplegia, unspecified; I10 Essential (primary) hypertension; Z87.440 Personal history of urinary (tract) infections; B96.4 Proteus (mirabilis) (morganii) as the cause of diseases classified elsewhere; B95.2 Enterococcus as the cause of diseases classified elsewhere; B96.89 Other specified bacterial agents as the cause of diseases classified elsewhere
CPT/HCPCS: 11042; 11044; 87070; 87075; 87077; 87186; 87205

== ENCOUNTER → 2017-07-14 12:48 | Outpatient (CLI) | payer MEDICARE, OTHER, SELFPAY ==
[2017-07-14 13:19] LABS: Hematocrit 47.8 % (40-54); Hemoglobin 15.1 g/dl (13.0-16.5); Mean Corp Hgb Conc 31.6 g/gl (32-36); Mean Corpuscular Hgb 26.5 pg (27.0-32.0); Mean Platelet Vol. 10.7 fl (6.2-12.0); Platelet Count 240 K/mm3 (150-450); RBC Distribution Width CV 18.6 % (11.6-14.6); RBC Distribution Width SD 55.6 fl (35.1-43.9); Red Blood Count 5.69 M/mm3 (4.6-6.2); White Blood Count 11.7 K/mm3 (4.4-11.0)
[2017-07-14 13:20] LABS: Scan Indicated on CBC? Y/N NO
[2017-07-14 13:27] LABS: Anion Gap 7 (5-15); BUN 23 mg/dL (7-18); BUN/Creat Ratio 24.5 RATIO (10-20); Chloride 99 mmol/L (98-107); Creatinine, Serum 0.94 mg/dL (0.70-1.30); EST Glomerular Filtration Rate 85 mL/min (>60); Est Glom Filt Rate - Afr Amer 103 mL/min (>60); Glucose 195 mg/dL (74-106); Potassium 3.9 mmol/L (3.5-5.1); Sodium Level 138 mmol/L (136-145)
[2017-07-14 13:31] LABS: Erythrocyte Sedimentation Rate 37 mm/hr (0-20)
== END ==
PROVIDERS: Visit Provider Internal Medicine Infectious Disease
DX: M86.8X7 Other osteomyelitis, ankle and foot (principal)
CPT/HCPCS: 36415; 80048; 85027; 85652

== ENCOUNTER → 2017-08-04 12:37 | Outpatient (CLI) | payer MEDICARE, OTHER, SELFPAY | PROVIDERS: Visit Provider Surgery | DX: Z45.2 Encounter for adjustment and management of vascular access device (principal) | CPT/HCPCS: 96523 ==

== ENCOUNTER 2017-08-18 11:15 | Outpatient (RCR) | payer MEDICARE, OTHER, SELFPAY ==
[2017-07-21 00:55] VITALS: BP 118/69; PULSE 73; RESP 20; TEMP 36.7; BMI 26.6
[2017-07-21 10:00] VITALS: BP 157/93; PULSE 70; RESP 20; TEMP 36; BMI 26.6
--- NOTE | 2017-07-21 14:48 | PCM.WC.PN ---
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 (2) Delayed wound healing Status: Acute Current Visit: No Code(s): T14.8XXD - Other injury of unspecified body region, subsequent encounter (3) Type 2 diabetes mellitus with diabetic polyneuropathy Status: Acute Current Visit: No Code(s): E11.42 - Type 2 diabetes mellitus with diabetic polyneuropathy (4) Chronic incomplete quadriplegia Status: Acute Current Visit: No Code(s): G82.50 - Quadriplegia, unspecified (5) Malnutrition Status: Acute Current Visit: No Code(s): E46 - Unspecified protein-calorie malnutrition Type of Wound Date of Service: 07/21/17 Chief Complaint: Ulcer on right heel History of Wound: This is a 67-year-old white male who presents to the wound care center today for evaluation of a right heel ulcer. He has a past medical history as described above. The patient states that on the night of 06/06/2017, his heel protectors came off all night in bed and shortly after he noted an ulceration on his right heel and a purplish discoloration on his left heel. He states that there has been yellow drainage coming from his right heel and that yesterday he started using Granulex and Aquacel silver on the right heel. He denies any pain or foul-smelling discharge, however he does state that he has decreased sensation to his lower extremities due to his history of a spinal cord injury in high school. He currently has a suprapubic catheter as well due to his history of recurrent UTIs and obstructive uropathy. He also notes that his low air loss hospital bed is needing to be repaired so he is unable to use this at this time. The patient does state that he has a history of ulcerations on his right heel in the past where he had to be seen at a wound care center and ended up needing to have skin substitutes applied. He does note that he lives home alone and that he receives home health throughout the week. Patient was then referred to Dr. Gan at his office, who subsequently admitted the patient on Jul 04, for IV antibiotics and evaluation by ID. Infectious disease planned to d/c patient home on doxy 100mg bid, amoxicillin 500mg tid, and flagyl 500mg tid for planned 6 week course. He has since discharge been receiving daily dressing changes consisting of aquacel ag and a dry sterile dressing as well as wearing his PRAFO boots at all times. He otherwise denies any signs of systemic infection and denies any fever, chills, nausea, vomiting, chest pain or pressure, syncope or presyncopal episodes. Progress of Wound: Ulcer appears to be improved again since last week with slightly more granular tissue appreciated. He has been having daily dressing changes performed by home health with aquacel ag. He says he has been wearing his PRAFO boots as well. - Physical Exam Vital Signs Temp Pulse Resp BP 96.8 F L 70 20 H 157/93 H 07/21/17 10:00 07/21/17 10:00 07/21/17 10:07/21/17 10:00 General: Alert, Oriented x3, Cooperative, No apparent distress Extremities: Capillary Refill Less than 3 Seconds, No Calf Tenderness - Negative Sarah Beth and Pretty sign, Diminished Peripheral Pulses Skin: Ulcer/ Wound - Ulcer to right posterior heel. Measurements noted below. Ulcer base is admission granular tissue, slough, fibrin with slight undermining appreciated. No bone appreciated today. No malodor, no purulence, no surrounding cellulitis, and no increased warmth noted. Wound Measurements and Assessment WC - Nurse 1 - General Ulcer Measurement Start: 07/21/17 10:00 Freq: Status: Active Protocol: Activity Type Activity Date Activity User E-Sign Co-Sign Detail Recorded Client Recorded Date Recorded By Document 07/21/17 10:05 ROXANA [id number] 07/21/17 10:16 ROXANA 07/21/17 10:05 Wound Center Nurse 1 [Ulcer Assessment] #11- RT HEEL -Combined with other wound No -Current Size (cm) - Length 2.0 -Current Size (cm) - Width 1.1 -Current Size (cm) - Depth 0.2 -Total Square Cm 2.20 -Date of Last Picture (Recall this 07/14/17 field) -Photo Taken No -Epithelialization None Present -Tunneling No -Undermining/Tunneling No -Circular Undermining No -Classification - Thickness Full Thickness with Exposed Support Structure -Classification - Marcial Grading ( Grade 3 Diabetic Ulcer) -Change in Wound Grade/Stage No Query Text:If change please identify the Stage/Grade in the comment (ie. S2 G3) -Exudate Amt Small (1-33%) -Exudate Type Serous -Wound Margin Distinct, Outline Attached -Granulation Amt Small (1-33%) -Granulation Quality Pale Valier -Slough/Fibrin Yes -Necrosis Amt None Present (0 %) -Necrotic Tissue Type Adherent Slough -Structure Exposed Tendon Bone -Texture (Francia-wound Skin Appearance) No Abnormality -Moisture (Francia-wound Skin Appearance No Abnormality ) -Color (Francia-wound Skin Appearance) No Abnormality -Temperature (Francia-wound Skin No Abnormality Appearance) (Pt Warm) -Tenderness on Palpation (Francia-wound No Skin Appearance) -Ulcer Cleansing Rinsed/ Irrigated with Saline -Foul Odor after Cleansing No -Anesthetic Used 4% Lidocaine Solution WC - Nurse 2 - General Ulcer CM Notes Start: 07/21/17 10:00 Freq: Status: Active Protocol: Activity Type Activity Date Activity User E-Sign Co-Sign Detail Recorded Client Recorded Date Recorded By Document 07/21/17 11:01 MW [id number] 07/21/17 11:02 MW 07/21/17 11:01 Wound Center Nurse 2 [Procedure/Treatment] -Time 11:01 -Correct Patient Yes -Correct Side, Site, Position Yes -Correct Procedure Yes -Procedure Performed Yes -Type of Procedure Debridement -Clinical Debridement Subcutaneous -Post Debridement Size (cm) - Length 2.2 -Post Debridement Size (cm) - Width 1.7 -Post Debridement Size (cm) - Depth 0.2 -Total Square Cm 3.74 -Wound/Ulcer Outcome Not Healed -Ulcer Cleansing Rinsed/ Irrigated with Saline -Foul Odor after Cleansing No -Bioengineered Tissue No -Bleeding Controlled with Pressure -Treatment Response Procedure Tolerated Well [See Physician Procedure note for Specifics] Pain Scale: 0-10 Numeric [Pain] -Is Patient Pain Free? Yes Musculoskeletal: Muscle Wasting, - - Bilateral ankle contractures Neurological: - - Patient is incomplete quadriplegic with only very slight sensation to parts of feet/ankles Psych/Mental Status: Normal Affect, Appropriate Debridement Note Post-Debridement Measurements/Treatment WC - Nurse 2 - General Ulcer CM Notes Start: 07/21/17 10:00 Freq: Status: Active Protocol: Activity Type Activity Date Activity User E-Sign Co-Sign Detail Recorded Client Recorded Date Recorded By Document 07/21/17 11:01 MW [id number] 07/21/17 11:02 MW 07/21/17 11:01 Wound Center Nurse 2 #11- RT HEEL -Time 11:01 -Correct Patient Yes -Correct Side, Site, Position Yes -Correct Procedure Yes -Procedure Performed Yes -Type of Procedure Debridement -Clinical Debridement Subcutaneous -Post Debridement Size (cm) - Length 2.2 -Post Debridement Size (cm) - Width 1.7 -Post Debridement Size (cm) - Depth 0.2 -Total Square Cm 3.74 -Wound/Ulcer Outcome Not Healed -Ulcer Cleansing Rinsed/ Irrigated with Saline -Foul Odor after Cleansing No -Bioengineered Tissue No -Bleeding Controlled with Pressure -Treatment Response Procedure Tolerated Well Pain Scale: 0-10 Numeric Is Patient Pain Free? Yes Wound debrided: Right posterior heel Laterality: Right Wound Grade/Stage: 2 Type of Debridement: Excisional debridement Anesthesia Used: 4% Lidocaine Solution Depth: in the subcutaneous layer Percentage of wound debrided: 100 Instrument Used: #15 blade, Forceps Tissue Removed: Slough, fibrin, undermining tissue Severity: Fat Layer Exposed Amount of bleeding with debridement: Mild Bleeding Controlled with: Pressure Patient tolerated procedure well Assessment/Plan Assessment: Ulcer to posterior right heel. Plan: Patient was again examined and evaluated in detail today. The patient has been receiving daily dressing changes consisting of aquacel ag, dry sterile dressing, and wearing PRAFO boots at all times. His ulcer looks improved again today since last week. The ulcer was carefully debrided as noted in the clinical panel. Following debridement, the site was dressed with aquacel ag, with a padded dry sterile dressing and his PRAFO boots. Patient was again educated on the importance of wearing the offloading PRAFO boots at all times to keep pressure off of his heels. He says he understands. He has home health care to help change dressings daily. Infectious disease also saw the patient today and is pleased with his progress thus far. He is to continue doxy 100mg bid, amoxicillin 500mg tid, and flagyl 500mg tid for planned 6 week course per infectious disease. He was educated on all signs and symptoms of local and systemic infection and was instructed to go to the ER immediately should he notice any. All questions were answered to the patient's satisfaction. He will follow up in clinic in one week to check on progress, or sooner if needed.
--- NOTE | 2017-07-21 16:06 | PCM.PN.ID ---
Subjective: Feeling better, foot improving, minimal drainage and pain. No fever, mild nausea. Soft stools, no diarrhea. - Physical Exam General: Alert, Cooperative, No apparent distress Lungs: Clear to auscultation, Normal air movement Cardiovascular: Regular rate, Regular Rhythm Abdomen: Soft, Non Tender, Non-Distended Skin: Ulcer/ Wound - R heel, improving Vital Signs Temp Pulse Resp BP 96.8 F L 70 20 H 157/93 H 07/21/17 10:00 07/21/17 10:00 07/21/17 10:00 07/21/17 10:00 Weight: 96.615 kg Body Mass Index (BMI) 26.6 Finger Stick Blood Glucose 135 Route of nutrition/ use of supplements: [] Nutritional Intake: [] IV Site: [] Nichols Catheter: [] - Assessment/Plan Antibiotics: [] Assessment/Plan: [] R heel osteo - prior cxs with proteus, MSSA, efaecalis, and anaerobes. Discharged from [facility] on 6 weeks of doxy, amox, flagyl. Labs improving. Tolerating abx well. Foot looking better. Cont abx as planned, stop date 08/16/17. Will follow as needed, d/w Dr. Griffin.
[2017-07-28 11:48] VITALS: BP 114/75; PULSE 79; RESP 18; TEMP 36.1; BMI 26.6
--- NOTE | 2017-07-28 14:31 | PCM.WC.PN ---
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 (2) Delayed wound healing Status: Acute Current Visit: No Code(s): T14.8XXD - Other injury of unspecified body region, subsequent encounter (3) Type 2 diabetes mellitus with diabetic polyneuropathy Status: Acute Current Visit: No Code(s): E11.42 - Type 2 diabetes mellitus with diabetic polyneuropathy (4) Chronic incomplete quadriplegia Status: Acute Current Visit: No Code(s): G82.50 - Quadriplegia, unspecified (5) Malnutrition Status: Acute Current Visit: No Code(s): E46 - Unspecified protein-calorie malnutrition Type of Wound Date of Service: 07/28/17 Chief Complaint: Ulcer on right heel History of Wound: This is a 67-year-old white male who presents to the wound care center today for evaluation of a right heel ulcer. He has a past medical history as described above. The patient states that on the night of 06/06/2017, his heel protectors came off all night in bed and shortly after he noted an ulceration on his right heel and a purplish discoloration on his left heel. He states that there has been yellow drainage coming from his right heel and that yesterday he started using Granulex and Aquacel silver on the right heel. He denies any pain or foul-smelling discharge, however he does state that he has decreased sensation to his lower extremities due to his history of a spinal cord injury in high school. He currently has a suprapubic catheter as well due to his history of recurrent UTIs and obstructive uropathy. He also notes that his low air loss hospital bed is needing to be repaired so he is unable to use this at this time. The patient does state that he has a history of ulcerations on his right heel in the past where he had to be seen at a wound care center and ended up needing to have skin substitutes applied. He does note that he lives home alone and that he receives home health throughout the week. Patient was then referred to Dr. Gan at his office, who subsequently admitted the patient on Jul 04, for IV antibiotics and evaluation by ID. Infectious disease planned to d/c patient home on doxy 100mg bid, amoxicillin 500mg tid, and flagyl 500mg tid for planned 6 week course. He has since discharge been receiving daily dressing changes consisting of aquacel ag and a dry sterile dressing as well as wearing his PRAFO boots at all times. He otherwise denies any signs of systemic infection and denies any fever, chills, nausea, vomiting, chest pain or pressure, syncope or presyncopal episodes. Progress of Wound: Ulcer appears to be slightly worse this week than last. There appears to be slightly more undermining this week than last. He has been having daily dressing changes performed by home health with aquacel ag. He says he has been wearing his PRAFO boots as well. - Physical Exam Vital Signs Temp Pulse Resp BP 97 F L 79 18 114/75 07/28/17 11:48 07/28/17 11:48 07/28/17 11:48 07/28/17 11:48 General: Alert, Oriented x3, Cooperative, No apparent distress Extremities: Capillary Refill Less than 3 Seconds, No Calf Tenderness - Negative Sarah Beth and Pretty sign, Diminished Peripheral Pulses Skin: Ulcer/ Wound - Ulcer to right posterior heel. Measurements noted below. Ulcer base is a mixture of granular tissue, slough, fibrin with slightly more undermining appreciated as well as some surrounding hyperkeratotic tissue. No bone appreciated today. No malodor, no purulence, no surrounding cellulitis, and no increased warmth noted. Wound Measurements and Assessment WC - Nurse 1 - General Ulcer Measurement Start: 07/21/17 10:00 Freq: Status: Active Protocol: Activity Type Activity Date Activity User E-Sign Co-Sign Detail Recorded Client Recorded Date Recorded By Document 07/28/17 11:48 DL [id number] 07/28/17 11:58 DL 07/28/17 11:48 Wound Center Nurse 1 [Ulcer Assessment] #11- RT HEEL -Current Size (cm) - Length 1.5 -Current Size (cm) - Width 1 -Current Size (cm) - Depth 0.3 -Total Square Cm 1.5 -Photo Taken No -Exudate Amt Small (1-33%) -Exudate Type Sanguineous -Wound Margin Thickened -Granulation Amt Large (67-100%) -Granulation Quality Red -Necrosis Amt Small (1-33%) -Necrotic Tissue Type Adherent Slough -Structure Exposed N/A -Texture (Francia-wound Skin Appearance) Scarring -Moisture (Francia-wound Skin Appearance No Abnormality ) -Color (Francia-wound Skin Appearance) No Abnormality -Temperature (Francia-wound Skin No Abnormality Appearance) (Pt Warm) -Ulcer Cleansing Wound Cleanser -Foul Odor after Cleansing No -Anesthetic Used 4% Lidocaine Solution - Nurse 2 - General Ulcer CM Notes Start: 07/21/17 10:00 Freq: Status: Active Protocol: Activity Type Activity Date Activity User E-Sign Co-Sign Detail Recorded Client Recorded Date Recorded By Document 07/28/17 12:28 MW [id number] 07/28/17 12:29 MW 07/28/17 12:28 Wound Center Nurse 2 [Procedure/Treatment] -Time 12:28 -Correct Patient Yes -Correct Side, Site, Position Yes -Correct Procedure Yes -Procedure Performed Yes -Type of Procedure Debridement -Clinical Debridement Subcutaneous -Post Debridement Size (cm) - Length 2.5 -Post Debridement Size (cm) - Width 1.6 -Post Debridement Size (cm) - Depth 0.2 -Total Square Cm 4.00 -Wound/Ulcer Outcome Not Healed -Ulcer Cleansing Rinsed/ Irrigated with Saline -Foul Odor after Cleansing No -Bioengineered Tissue No -Bleeding Controlled with Pressure -Treatment Response Procedure Tolerated Well [See Physician Procedure note for Specifics] Pain Scale: 0-10 Numeric [Pain] -Is Patient Pain Free? Yes Musculoskeletal: Muscle Wasting, - - Bilateral ankle contractures Neurological: - - Patient is incomplete quadriplegic with only very slight sensation to parts of feet/ankles Psych/Mental Status: Normal Affect, Appropriate Debridement Note Post-Debridement Measurements/Treatment - Nurse 2 - General Ulcer CM Notes Start: 07/21/17 10:00 Freq: Status: Active Protocol: Activity Type Activity Date Activity User E-Sign Co-Sign Detail Recorded Client Recorded Date Recorded By Document 07/21/17 11:01 MW [id number] 07/21/17 11:02 MW Document 07/28/17 12:28 MW [id number] 07/28/17 12:29 MW 07/21/17 07/28/17 11:01 12:28 Wound Center Nurse 2 #11- RT HEEL -Time 11:01 12:28 -Correct Patient Yes Yes -Correct Side, Site, Position Yes Yes -Correct Procedure Yes Yes -Procedure Performed Yes Yes -Type of Procedure Debridement Debridement -Clinical Debridement Subcutaneous Subcutaneous -Post Debridement Size (cm) - Length 2.2 2.5 -Post Debridement Size (cm) - Width 1.7 1.6 -Post Debridement Size (cm) - Depth 0.2 0.2 -Total Square Cm 3.74 4.00 -Wound/Ulcer Outcome Not Healed Not Healed -Ulcer Cleansing Rinsed/ Rinsed/ Irrigated with Irrigated with Saline Saline -Foul Odor after Cleansing No No -Bioengineered Tissue No No -Bleeding Controlled with Pressure Pressure -Treatment Response Procedure Procedure Tolerated Well Tolerated Well Pain Scale: 0-10 Numeric Is Patient Pain Free? Yes Yes Wound debrided: Right posterior heel Laterality: Right Wound Grade/Stage: 2 Type of Debridement: Excisional debridement Anesthesia Used: 4% Lidocaine Solution Depth: in the subcutaneous layer Percentage of wound debrided: 100 Instrument Used: #15 blade, Forceps, - - Tissue nipper Tissue Removed: Slough, fibrin, undermining tissue, hyperkeratotic tissue Severity: Fat Layer Exposed Amount of bleeding with debridement: Mild Bleeding Controlled with: Pressure Patient tolerated procedure well Assessment/Plan Assessment: Ulcer to posterior right heel. Plan: Patient was again examined and evaluated in detail today. The patient has been receiving daily dressing changes consisting of aquacel ag, dry sterile dressing, and wearing PRAFO boots at all times. His ulcer looks slightly worse with a little more undermining noted this week. The ulcer was carefully debrided as noted in the clinical panel. Following debridement, the site was dressed with chris, with a padded dry sterile dressing and his PRAFO boots. Patient was again educated on the importance of wearing the offloading PRAFO boots at all times to keep pressure off of his heels. He says he understands. He has home health care to help change dressings as described above, every other day. He is to continue antibiotics per infectious disease. He was educated on all signs and symptoms of local and systemic infection and was instructed to go to the ER immediately should he notice any. All questions were answered to the patient's satisfaction. He will follow up in clinic in one week to check on progress, or sooner if needed.
[2017-08-04 11:08] VITALS: BP 83/63; PULSE 85; RESP 16; TEMP 36.6; BMI 26.6
--- NOTE | 2017-08-04 12:06 | PN.PCM_ITS ---
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 (2) Delayed wound healing Status: Acute Current Visit: No Code(s): T14.8XXD - Other injury of unspecified body region, subsequent encounter (3) Type 2 diabetes mellitus with diabetic polyneuropathy Status: Acute Current Visit: No Code(s): E11.42 - Type 2 diabetes mellitus with diabetic polyneuropathy (4) Chronic incomplete quadriplegia Status: Acute Current Visit: No Code(s): G82.50 - Quadriplegia, unspecified (5) Malnutrition Status: Acute Current Visit: No Code(s): E46 - Unspecified protein-calorie malnutrition Type of Wound Date of Service: 08/04/17 Chief Complaint: Ulcer on right heel History of Wound: This is a 67-year-old white male who presents to the wound care center today for evaluation of a right heel ulcer. He has a past medical history as described above. The patient states that on the night of 06/06/2017, his heel protectors came off all night in bed and shortly after he noted an ulceration on his right heel and a purplish discoloration on his left heel. He states that there has been yellow drainage coming from his right heel and that yesterday he started using Granulex and Aquacel silver on the right heel. He denies any pain or foul-smelling discharge, however he does state that he has decreased sensation to his lower extremities due to his history of a spinal cord injury in high school. He currently has a suprapubic catheter as well due to his history of recurrent UTIs and obstructive uropathy. He also notes that his low air loss hospital bed is needing to be repaired so he is unable to use this at this time. The patient does state that he has a history of ulcerations on his right heel in the past where he had to be seen at a wound care center and ended up needing to have skin substitutes applied. He does note that he lives home alone and that he receives home health throughout the week. Patient was then referred to Dr. Gan at his office, who subsequently admitted the patient on Jul 04, for IV antibiotics and evaluation by ID. Infectious disease planned to d/c patient home on doxy 100mg bid, amoxicillin 500mg tid, and flagyl 500mg tid for planned 6 week course. He has since discharge been receiving daily dressing changes consisting of aquacel ag and a dry sterile dressing as well as wearing his PRAFO boots at all times. He otherwise denies any signs of systemic infection and denies any fever, chills, nausea, vomiting, chest pain or pressure, syncope or presyncopal episodes. Progress of Wound: Ulcer appears to be improving again this week compared to last. No undermining noted this week. He has been undergoing daily chris dressing changes over the last week. He says he has been wearing his PRAFO boots as well. - Physical Exam Vital Signs Temp Pulse Resp BP 98 F 85 16 83/63 L 08/04/17 11:08 08/04/17 11:08 08/04/17 11:08 08/04/17 11:08 General: Alert, Oriented x3, Cooperative, No apparent distress Extremities: Capillary Refill Less than 3 Seconds, No Calf Tenderness - negative more and juarez sign, Diminished Peripheral Pulses Skin: Ulcer/ Wound - Ulcer to right posterior heel. Measurements noted below. Ulcer base is a mixture of granular tissue, slough, fibrin with no undermining appreciated this week. Some surrounding hyperkeratotic tissue. No bone appreciated today. No malodor, no purulence, no surrounding cellulitis, and no increased warmth noted. Wound Measurements and Assessment WC - Nurse 1 - General Ulcer Measurement Start: 07/21/17 10:00 Freq: Status: Active Protocol: Activity Type Activity Date Activity User E-Sign Co-Sign Detail Recorded Client Recorded Date Recorded By Document 08/04/17 11:19 [id number] 08/04/17 11:28 08/04/17 11:19 Wound Center Nurse 1 [Ulcer Assessment] #11- RT HEEL -Combined with other wound No -Current Size (cm) - Length 1.0 -Current Size (cm) - Width 1.0 -Current Size (cm) - Depth 0.2 -Total Square Cm 1.00 -Date of Last Picture (Recall this 07/14/17 field) -Photo Taken No -Epithelialization None Present -Tunneling No -Undermining/Tunneling No -Circular Undermining No -Classification - Thickness Full Thickness with Exposed Support Structure -Classification - Marcial Grading ( Grade 3 Diabetic Ulcer) -Change in Wound Grade/Stage No Query Text:If change please identify the Stage/Grade in the comment (ie. S2 G3) -Exudate Amt Small (1-33%) -Exudate Type Serosanguineous -Wound Margin Distinct, Outline Attached -Granulation Amt Small (1-33%) -Granulation Quality [place] -Slough/Fibrin Yes -Necrosis Amt None Present (0 %) -Necrotic Tissue Type Adherent Slough -Structure Exposed N/A -Texture (Francia-wound Skin Appearance) Callus -Moisture (Francia-wound Skin Appearance Dry/Scaly ) -Color (Francia-wound Skin Appearance) No Abnormality -Temperature (Francia-wound Skin No Abnormality Appearance) (Pt Warm) -Tenderness on Palpation (Francia-wound No Skin Appearance) -Ulcer Cleansing Rinsed/ Irrigated with Saline -Foul Odor after Cleansing No -Anesthetic Used 4% Lidocaine Solution WC - Nurse 2 - General Ulcer CM Notes Start: 07/21/17 10:00 Freq: Status: Active Protocol: Activity Type Activity Date Activity User E-Sign Co-Sign Detail Recorded Client Recorded Date Recorded By Document 08/04/17 11:54 MW [id number] 08/04/17 11:59 MW 08/04/17 11:54 Wound Center Nurse 2 [Procedure/Treatment] -Time 11:55 -Correct Patient Yes -Correct Side, Site, Position Yes -Correct Procedure Yes -Procedure Performed Yes -Type of Procedure Debridement -Clinical Debridement Subcutaneous -Post Debridement Size (cm) - Length 1.6 -Post Debridement Size (cm) - Width 1.7 -Post Debridement Size (cm) - Depth 0.2 -Total Square Cm 2.72 -Wound/Ulcer Outcome Not Healed -Ulcer Cleansing Rinsed/ Irrigated with Saline -Foul Odor after Cleansing No -Bioengineered Tissue No -Bleeding Controlled with Pressure -Treatment Response Procedure Tolerated Well [See Physician Procedure note for Specifics] Pain Scale: 0-10 Numeric [Pain] -Is Patient Pain Free? Yes Musculoskeletal: Muscle Wasting - lower extremities Neurological: - - Patient is incomplete quadriplegic with only very slight sensation to parts of feet/ankles Psych/Mental Status: Normal Affect, Appropriate Debridement Note Post-Debridement Measurements/Treatment WC - Nurse 2 - General Ulcer CM Notes Start: 07/21/17 10:00 Freq: Status: Active Protocol: Activity Type Activity Date Activity User E-Sign Co-Sign Detail Recorded Client Recorded Date Recorded By Document 07/21/17 11:01 MW [id number] 07/21/17 11:02 MW Document 07/28/17 12:28 MW [id number] 07/28/17 12:29 MW Document 08/04/17 11:54 MW [id number] 08/04/17 11:59 MW 07/21/17 07/28/17 08/04/17 11:01 12:28 11:54 Wound Center Nurse 2 #11- RT HEEL -Time 11: 12:28 11:55 -Correct Patient Yes Yes Yes -Correct Side, Site, Position Yes Yes Yes -Correct Procedure Yes Yes Yes -Procedure Performed Yes Yes Yes -Type of Procedure Debridement Debridement Debridement -Clinical Debridement Subcutaneous Subcutaneous Subcutaneous -Post Debridement Size (cm) - Length 2.2 2.5 1.6 -Post Debridement Size (cm) - Width 1.7 1.6 1.7 -Post Debridement Size (cm) - Depth 0.2 0.2 0.2 -Total Square Cm 3.74 4.00 2.72 -Wound/Ulcer Outcome Not Healed Not Healed Not Healed -Ulcer Cleansing Rinsed/ Rinsed/ Rinsed/ Irrigated with Irrigated with Irrigated with Saline Saline Saline -Foul Odor after Cleansing No No No -Bioengineered Tissue No No No -Bleeding Controlled with Pressure Pressure Pressure -Treatment Response Procedure Procedure Procedure Tolerated Well Tolerated Well Tolerated Well Pain Scale: 0-10 Numeric Is Patient Pain Free? Yes Yes Yes Wound debrided: right posterior heel Laterality: Right Wound Grade/Stage: 2 Type of Debridement: Excisional debridement Anesthesia Used: 4% Lidocaine Solution Depth: in the subcutaneous layer Percentage of wound debrided: 100 Instrument Used: #15 blade, Forceps Tissue Removed: Slough, fibrin, undermining tissue, hyperkeratotic tissue Severity: Fat Layer Exposed Amount of bleeding with debridement: Mild Bleeding Controlled with: Pressure Patient tolerated procedure well Assessment/Plan Assessment: Ulcer to posterior right heel. Plan: Patient was again examined and evaluated in detail today. The patient has been receiving daily dressing changes consisting of chris, dry sterile dressing , and wearing PRAFO boots at all times. His ulcer looks improved this week. The ulcer was carefully debrided as noted in the clinical panel. Following debridement, the site was dressed with chris, with a padded dry sterile dressing and his PRAFO boots. He is to have his dressing changed every other day. Patient was again educated on the importance of wearing the offloading PRAFO boots at all times to keep pressure off of his heels. He says he understands. He has home health care to help change dressings as described above , every other day. He is to continue antibiotics per infectious disease. He was educated on all signs and symptoms of local and systemic infection and was instructed to go to the ER immediately should he notice any. All questions were answered to the patient's satisfaction. He will follow up in clinic in one week to check on progress, or sooner if needed.
[2017-08-11 10:21] VITALS: BP 99/55; PULSE 85; RESP 16; TEMP 35.7; BMI 26.6
--- NOTE | 2017-08-11 10:56 | PCM.PN.ID ---
Subjective: Foot doing well. C/o cloudy/foul smelling urine and elevated blood sugars. No fever, no abd pain. - Physical Exam General: Alert, Cooperative Lungs: Clear to auscultation, Normal air movement Cardiovascular: Regular rate, Regular Rhythm Abdomen: Soft, Non Tender, Non-Distended, - - suprapubic in place Extremities: No edema Skin: Ulcer/ Wound - R heel Vital Signs Temp Pulse Resp BP 96.2 F L 85 16 99/55 L 08/11/17 10:21 08/11/17 10:21 08/11/17 10:21 08/11/17 10:21 Weight: 96.615 kg Body Mass Index (BMI) 26.6 Finger Stick Blood Glucose 135 Medical Necessity - Tobacco Use Smoking Status: Never smoker Route of nutrition/ use of supplements: [] Nutritional Intake: [] IV Site: [] Nichols Catheter: [] - Assessment/Plan Antibiotics: [] Assessment/Plan: [] R heel osteo - prior cxs with proteus, MSSA, efaecalis, and anaerobes. Discharged from [facility] on 6 weeks of doxy, amox, flagyl. Labs improving. Tolerating abx well. Foot looking better. Cont abx as planned, stop date 08/16/17. Cloudy urine with suprapubic cath in place - ordering UA/UCx, gave rx Will follow as needed
--- NOTE | 2017-08-11 14:05 | PCM.WC.PN ---
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 (2) Delayed wound healing Status: Acute Current Visit: No Code(s): T14.8XXD - Other injury of unspecified body region, subsequent encounter (3) Type 2 diabetes mellitus with diabetic polyneuropathy Status: Acute Current Visit: No Code(s): E11.42 - Type 2 diabetes mellitus with diabetic polyneuropathy (4) Chronic incomplete quadriplegia Status: Acute Current Visit: No Code(s): G82.50 - Quadriplegia, unspecified (5) Malnutrition Status: Acute Current Visit: No Code(s): E46 - Unspecified protein-calorie malnutrition Type of Wound Date of Service: 08/11/17 Chief Complaint: Ulcer on right heel History of Wound: This is a 67-year-old white male who presents to the wound care center today for evaluation of a right heel ulcer. He has a past medical history as described above. The patient states that on the night of 06/06/2017, his heel protectors came off all night in bed and shortly after he noted an ulceration on his right heel and a purplish discoloration on his left heel. He states that there has been yellow drainage coming from his right heel and that yesterday he started using Granulex and Aquacel silver on the right heel. He denies any pain or foul-smelling discharge, however he does state that he has decreased sensation to his lower extremities due to his history of a spinal cord injury in high school. He currently has a suprapubic catheter as well due to his history of recurrent UTIs and obstructive uropathy. He also notes that his low air loss hospital bed is needing to be repaired so he is unable to use this at this time. The patient does state that he has a history of ulcerations on his right heel in the past where he had to be seen at a wound care center and ended up needing to have skin substitutes applied. He does note that he lives home alone and that he receives home health throughout the week. Patient was then referred to Dr. Gan at his office, who subsequently admitted the patient on Jul 04, for IV antibiotics and evaluation by ID. Infectious disease planned to d/c patient home on doxy 100mg bid, amoxicillin 500mg tid, and flagyl 500mg tid for planned 6 week course. He has since discharge been receiving daily dressing changes consisting of aquacel ag and a dry sterile dressing as well as wearing his PRAFO boots at all times. He otherwise denies any signs of systemic infection and denies any fever, chills, nausea, vomiting, chest pain or pressure, syncope or presyncopal episodes. Progress of Wound: Ulcer appears to be improving again this week compared to last. No undermining noted this week. He has been undergoing daily chris dressing changes over the last week. He says he has been wearing his PRAFO boots as well. - Physical Exam Vital Signs Temp Pulse Resp BP 96.2 F L 85 16 99/55 L 08/11/17 10:21 08/11/17 10:21 08/11/17 10:21 08/11/17 10:21 General: Alert, Oriented x3, Cooperative, No apparent distress Extremities: Capillary Refill Less than 3 Seconds, No Calf Tenderness - negative more and juarez sign, Diminished Peripheral Pulses Skin: Ulcer/ Wound - Ulcer to right posterior heel. Measurements noted below. Ulcer base is a mixture of granular tissue, slough, fibrin with slight undermining appreciated this week. Some surrounding hyperkeratotic tissue. No bone appreciated today. No malodor, no purulence, no surrounding cellulitis, and no increased warmth noted. Wound Measurements and Assessment WC - Nurse 1 - General Ulcer Measurement Start: 07/21/17 10:00 Freq: Status: Active Protocol: Activity Type Activity Date Activity User E-Sign Co-Sign Detail Recorded Client Recorded Date Recorded By Document 08/11/17 10:21 [id number] 08/11/17 10:23 CHRISTIANO 08/11/17 10:21 Wound Center Nurse 1 [Ulcer Assessment] #11- RT HEEL -Combined with other wound No -Current Size (cm) - Length 1.2 -Current Size (cm) - Width 0.8 -Current Size (cm) - Depth 0.2 -Total Square Cm 0.96 -Photo Taken Yes -Epithelialization Medium 34-66% -Tunneling No -Undermining/Tunneling No -Circular Undermining No -Exudate Amt Small (1-33%) -Exudate Type Serosanguineous -Wound Margin Flat & Intact -Granulation Amt Medium (34-66%) -Granulation Quality Red -Slough/Fibrin Yes -Necrosis Amt Small (1-33%) -Necrotic Tissue Type Adherent Slough -Structure Exposed N/A -Texture (Francia-wound Skin Appearance) Assessed Callus -Moisture (Francia-wound Skin Appearance Assessed ) Dry/Scaly -Color (Francia-wound Skin Appearance) Assessed -Temperature (Francia-wound Skin No Abnormality Appearance) (Pt Warm) -Tenderness on Palpation (Francia-wound No Skin Appearance) -Ulcer Cleansing Rinsed/ Irrigated with Saline -Foul Odor after Cleansing No -Anesthetic Used 4% Lidocaine Solution [Edema Assessment] -Lower Limb Edema Present NA WC - Nurse 2 - General Ulcer CM Notes Start: 07/21/17 10:00 Freq: Status: Active Protocol: Activity Type Activity Date Activity User E-Sign Co-Sign Detail Recorded Client Recorded Date Recorded By Document 08/11/17 11:53 MW [id number] 08/11/17 11:57 MW 08/11/17 11:53 Wound Center Nurse 2 [Procedure/Treatment] #11- RT HEEL -Time 11:53 -Correct Patient Yes -Correct Side, Site, Position Yes -Correct Procedure Yes -Procedure Performed Yes -Type of Procedure Debridement -Clinical Debridement Subcutaneous -Post Debridement Size (cm) - Length 1.3 -Post Debridement Size (cm) - Width 1.4 -Post Debridement Size (cm) - Depth 0.2 -Total Square Cm 1.82 -Wound/Ulcer Outcome Not Healed -Ulcer Cleansing Rinsed/ Irrigated with Saline -Foul Odor after Cleansing No -Bioengineered Tissue No -Bleeding Controlled with Pressure -Treatment Response Procedure Tolerated Well [See Physician Procedure note for Specifics] Pain Scale: 0-10 Numeric [Pain] -Is Patient Pain Free? Yes Musculoskeletal: Muscle Wasting Neurological: - - Patient is incomplete quadriplegic with only very slight sensation to parts of feet/ankles Psych/Mental Status: Normal Affect, Appropriate Debridement Note Post-Debridement Measurements/Treatment - Nurse 2 - General Ulcer CM Notes Start: 07/21/17 10:00 Freq: Status: Active Protocol: Activity Type Activity Date Activity User E-Sign Co-Sign Detail Recorded Client Recorded Date Recorded By Document 07/21/17 11:01 MW [id number] 07/21/17 11:02 MW Document 07/28/17 12:28 MW [id number] 07/28/17 12:29 MW Document 08/04/17 11:54 MW [id number] 08/04/17 11:59 MW Document 08/11/17 11:53 MW [id number] 08/11/17 11:57 MW 07/21/17 07/28/17 08/04/17 11:01 12:28 11:54 Wound Center Nurse 2 #11- RT HEEL -Time 11:01 12:28 11:55 -Correct Patient Yes Yes Yes -Correct Side, Site, Position Yes Yes Yes -Correct Procedure Yes Yes Yes -Procedure Performed Yes Yes Yes -Type of Procedure Debridement Debridement Debridement -Clinical Debridement Subcutaneous Subcutaneous Subcutaneous -Post Debridement Size (cm) - Length 2.2 2.5 1.6 -Post Debridement Size (cm) - Width 1.7 1.6 1.7 -Post Debridement Size (cm) - Depth 0.2 0.2 0.2 -Total Square Cm 3.74 4.00 2.72 -Wound/Ulcer Outcome Not Healed Not Healed Not Healed -Ulcer Cleansing Rinsed/ Rinsed/ Rinsed/ Irrigated with Irrigated with Irrigated with Saline Saline Saline -Foul Odor after Cleansing No No No -Bioengineered Tissue No No No -Bleeding Controlled with Pressure Pressure Pressure -Treatment Response Procedure Procedure Procedure Tolerated Well Tolerated Well Tolerated Well Pain Scale: 0-10 Numeric Is Patient Pain Free? Yes Yes Yes 08/11/17 11:53 Wound Center Nurse 2 #11- RT HEEL -Time 11:53 -Correct Patient Yes -Correct Side, Site, Position Yes -Correct Procedure Yes -Procedure Performed Yes -Type of Procedure Debridement -Clinical Debridement Subcutaneous -Post Debridement Size (cm) - Length 1.3 -Post Debridement Size (cm) - Width 1.4 -Post Debridement Size (cm) - Depth 0.2 -Total Square Cm 1.82 -Wound/Ulcer Outcome Not Healed -Ulcer Cleansing Rinsed/ Irrigated with Saline -Foul Odor after Cleansing No -Bioengineered Tissue No -Bleeding Controlled with Pressure -Treatment Response Procedure Tolerated Well Pain Scale: 0-10 Numeric Is Patient Pain Free? Yes Wound debrided: right posterior heel Laterality: Right Wound Grade/Stage: 2 Type of Debridement: Excisional debridement Anesthesia Used: 4% Lidocaine Solution Depth: in the subcutaneous layer Percentage of wound debrided: 100 Instrument Used: #15 blade, - - tissue nipper Tissue Removed: Slough, fibrin, undermining tissue, hyperkeratotic tissue, biofilm Severity: Fat Layer Exposed Amount of bleeding with debridement: Mild Bleeding Controlled with: Pressure Patient tolerated procedure well Assessment/Plan Assessment: Ulcer to posterior right heel. Plan: Patient was again examined and evaluated in detail today. The patient has been receiving daily dressing changes consisting of chris, dry sterile dressing, and wearing PRAFO boots at all times. His ulcer looks slightly improved this week but with some slight undermining noted. The ulcer was carefully debrided as noted in the clinical panel. Following debridement, the site was dressed with chris, with a padded dry sterile dressing and his PRAFO boots. He is to have his dressing changed every other day. Patient was again educated on the importance of wearing the offloading PRAFO boots at all times to keep pressure off of his heels. He says he understands. He has home health care to help change dressings as described above, every other day. He is to continue antibiotics per infectious disease. He was educated on all signs and symptoms of local and systemic infection and was instructed to go to the ER immediately should he notice any. All questions were answered to the patient's satisfaction. He will follow up in clinic in one week to check on progress, or sooner if needed.
--- NOTE | 2017-08-11 14:10 | PN.PCM_ITS ---
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 (2) Delayed wound healing Status: Acute Current Visit: No Code(s): T14.8XXD - Other injury of unspecified body region, subsequent encounter (3) Type 2 diabetes mellitus with diabetic polyneuropathy Status: Acute Current Visit: No Code(s): E11.42 - Type 2 diabetes mellitus with diabetic polyneuropathy (4) Chronic incomplete quadriplegia Status: Acute Current Visit: No Code(s): G82.50 - Quadriplegia, unspecified (5) Malnutrition Status: Acute Current Visit: No Code(s): E46 - Unspecified protein-calorie malnutrition Type of Wound Date of Service: 08/11/17 Chief Complaint: Ulcer on right heel History of Wound: This is a 67-year-old white male who presents to the wound care center today for evaluation of a right heel ulcer. He has a past medical history as described above. The patient states that on the night of 06/06/2017, his heel protectors came off all night in bed and shortly after he noted an ulceration on his right heel and a purplish discoloration on his left heel. He states that there has been yellow drainage coming from his right heel and that yesterday he started using Granulex and Aquacel silver on the right heel. He denies any pain or foul-smelling discharge, however he does state that he has decreased sensation to his lower extremities due to his history of a spinal cord injury in high school. He currently has a suprapubic catheter as well due to his history of recurrent UTIs and obstructive uropathy. He also notes that his low air loss hospital bed is needing to be repaired so he is unable to use this at this time. The patient does state that he has a history of ulcerations on his right heel in the past where he had to be seen at a wound care center and ended up needing to have skin substitutes applied. He does note that he lives home alone and that he receives home health throughout the week. Patient was then referred to Dr. Gan at his office, who subsequently admitted the patient on Jul 04, for IV antibiotics and evaluation by ID. Infectious disease planned to d/c patient home on doxy 100mg bid, amoxicillin 500mg tid, and flagyl 500mg tid for planned 6 week course. He has since discharge been receiving daily dressing changes consisting of aquacel ag and a dry sterile dressing as well as wearing his PRAFO boots at all times. He otherwise denies any signs of systemic infection and denies any fever, chills, nausea, vomiting, chest pain or pressure, syncope or presyncopal episodes. Progress of Wound: Ulcer appears to be improving again this week compared to last. No undermining noted this week. He has been undergoing daily chris dressing changes over the last week. He says he has been wearing his PRAFO boots as well. - Physical Exam Vital Signs Temp Pulse Resp BP 96.2 F L 85 16 99/55 L 08/11/17 10:21 08/11/17 10:21 08/11/17 10:21 08/11/17 10:21 General: Alert, Oriented x3, Cooperative, No apparent distress Extremities: Capillary Refill Less than 3 Seconds, No Calf Tenderness - negative more and juarez sign, Diminished Peripheral Pulses Skin: Ulcer/ Wound - Ulcer to right posterior heel. Measurements noted below. Ulcer base is a mixture of granular tissue, slough, fibrin with slight undermining appreciated this week. Some surrounding hyperkeratotic tissue. No bone appreciated today. No malodor, no purulence, no surrounding cellulitis, and no increased warmth noted. Wound Measurements and Assessment WC - Nurse 1 - General Ulcer Measurement Start: 07/21/17 10:00 Freq: Status: Active Protocol: Activity Type Activity Date Activity User E-Sign Co-Sign Detail Recorded Client Recorded Date Recorded By Document 08/11/17 10:21 [id number] 08/11/17 10:23 CHRISTIANO 08/11/17 10:21 Wound Center Nurse 1 [Ulcer Assessment] #11- RT HEEL -Combined with other wound No -Current Size (cm) - Length 1.2 -Current Size (cm) - Width 0.8 -Current Size (cm) - Depth 0.2 -Total Square Cm 0.96 -Photo Taken Yes -Epithelialization Medium 34-66% -Tunneling No -Undermining/Tunneling No -Circular Undermining No -Exudate Amt Small (1-33%) -Exudate Type Serosanguineous -Wound Margin Flat & Intact -Granulation Amt Medium (34-66%) -Granulation Quality Red -Slough/Fibrin Yes -Necrosis Amt Small (1-33%) -Necrotic Tissue Type Adherent Slough -Structure Exposed N/A -Texture (Francia-wound Skin Appearance) Assessed Callus -Moisture (Francia-wound Skin Appearance Assessed ) Dry/Scaly -Color (Francia-wound Skin Appearance) Assessed -Temperature (Francia-wound Skin No Abnormality Appearance) (Pt Warm) -Tenderness on Palpation (Francia-wound No Skin Appearance) -Ulcer Cleansing Rinsed/ Irrigated with Saline -Foul Odor after Cleansing No -Anesthetic Used 4% Lidocaine Solution [Edema Assessment] -Lower Limb Edema Present NA WC - Nurse 2 - General Ulcer CM Notes Start: 07/21/17 10:00 Freq: Status: Active Protocol: Activity Type Activity Date Activity User E-Sign Co-Sign Detail Recorded Client Recorded Date Recorded By Document 08/11/17 11:53 MW [id number] 08/11/17 11:57 MW 08/11/17 11:53 Wound Center Nurse 2 [Procedure/Treatment] #11- RT HEEL -Time 11:53 -Correct Patient Yes -Correct Side, Site, Position Yes -Correct Procedure Yes -Procedure Performed Yes -Type of Procedure Debridement -Clinical Debridement Subcutaneous -Post Debridement Size (cm) - Length 1.3 -Post Debridement Size (cm) - Width 1.4 -Post Debridement Size (cm) - Depth 0.2 -Total Square Cm 1.82 -Wound/Ulcer Outcome Not Healed -Ulcer Cleansing Rinsed/ Irrigated with Saline -Foul Odor after Cleansing No -Bioengineered Tissue No -Bleeding Controlled with Pressure -Treatment Response Procedure Tolerated Well [See Physician Procedure note for Specifics] Pain Scale: 0-10 Numeric [Pain] -Is Patient Pain Free? Yes Musculoskeletal: Muscle Wasting Neurological: - - Patient is incomplete quadriplegic with only very slight sensation to parts of feet/ankles Psych/Mental Status: Normal Affect, Appropriate Debridement Note Post-Debridement Measurements/Treatment - Nurse 2 - General Ulcer CM Notes Start: 07/21/17 10:00 Freq: Status: Active Protocol: Activity Type Activity Date Activity User E-Sign Co-Sign Detail Recorded Client Recorded Date Recorded By Document 07/21/17 11:01 MW [id number] 07/21/17 11:02 MW Document 07/28/17 12:28 MW [id number] 07/28/17 12:29 MW Document 08/04/17 11:54 MW [id number] 08/04/17 11:59 MW Document 08/11/17 11:53 MW [id number] 08/11/17 11:57 MW 07/21/17 07/28/17 08/04/17 11:01 12:28 11:54 Wound Center Nurse 2 #11- RT HEEL -Time 11:01 12:28 11:55 -Correct Patient Yes Yes Yes -Correct Side, Site, Position Yes Yes Yes -Correct Procedure Yes Yes Yes -Procedure Performed Yes Yes Yes -Type of Procedure Debridement Debridement Debridement -Clinical Debridement Subcutaneous Subcutaneous Subcutaneous -Post Debridement Size (cm) - Length 2.2 2.5 1.6 -Post Debridement Size (cm) - Width 1.7 1.6 1.7 -Post Debridement Size (cm) - Depth 0.2 0.2 0.2 -Total Square Cm 3.74 4.00 2.72 -Wound/Ulcer Outcome Not Healed Not Healed Not Healed -Ulcer Cleansing Rinsed/ Rinsed/ Rinsed/ Irrigated with Irrigated with Irrigated with Saline Saline Saline -Foul Odor after Cleansing No No No -Bioengineered Tissue No No No -Bleeding Controlled with Pressure Pressure Pressure -Treatment Response Procedure Procedure Procedure Tolerated Well Tolerated Well Tolerated Well Pain Scale: 0-10 Numeric Is Patient Pain Free? Yes Yes Yes 08/11/17 11:53 Wound Center Nurse 2 #11- RT HEEL -Time 11:53 -Correct Patient Yes -Correct Side, Site, Position Yes -Correct Procedure Yes -Procedure Performed Yes -Type of Procedure Debridement -Clinical Debridement Subcutaneous -Post Debridement Size (cm) - Length 1.3 -Post Debridement Size (cm) - Width 1.4 -Post Debridement Size (cm) - Depth 0.2 -Total Square Cm 1.82 -Wound/Ulcer Outcome Not Healed -Ulcer Cleansing Rinsed/ Irrigated with Saline -Foul Odor after Cleansing No -Bioengineered Tissue No -Bleeding Controlled with Pressure -Treatment Response Procedure Tolerated Well Pain Scale: 0-10 Numeric Is Patient Pain Free? Yes Wound debrided: right posterior heel Laterality: Right Wound Grade/Stage: 2 Type of Debridement: Excisional debridement Anesthesia Used: 4% Lidocaine Solution Depth: in the subcutaneous layer Percentage of wound debrided: 100 Instrument Used: #15 blade, - - tissue nipper Tissue Removed: Slough, fibrin, undermining tissue, hyperkeratotic tissue, biofilm Severity: Fat Layer Exposed Amount of bleeding with debridement: Mild Bleeding Controlled with: Pressure Patient tolerated procedure well Assessment/Plan Assessment: Ulcer to posterior right heel. Plan: Patient was again examined and evaluated in detail today. The patient has been receiving daily dressing changes consisting of chris, dry sterile dressing , and wearing PRAFO boots at all times. His ulcer looks slightly improved this week but with some slight undermining noted. The ulcer was carefully debrided as noted in the clinical panel. Following debridement, the site was dressed with chris, with a padded dry sterile dressing and his PRAFO boots. He is to have his dressing changed every other day. Patient was again educated on the importance of wearing the offloading PRAFO boots at all times to keep pressure off of his heels. He says he understands. He has home health care to help change dressings as described above, every other day. He is to continue antibiotics per infectious disease. He was educated on all signs and symptoms of local and systemic infection and was instructed to go to the ER immediately should he notice any. All questions were answered to the patient's satisfaction. He will follow up in clinic in one week to check on progress, or sooner if needed.
[2017-08-18 11:50] VITALS: BP 112/68; PULSE 82; RESP 18; TEMP 36.6; BMI 26.6
--- NOTE | 2017-08-18 15:49 | PCM.WC.PN ---
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 (2) Delayed wound healing Status: Acute Current Visit: No Code(s): T14.8XXD - Other injury of unspecified body region, subsequent encounter (3) Type 2 diabetes mellitus with diabetic polyneuropathy Status: Acute Current Visit: No Code(s): E11.42 - Type 2 diabetes mellitus with diabetic polyneuropathy (4) Chronic incomplete quadriplegia Status: Acute Current Visit: No Code(s): G82.50 - Quadriplegia, unspecified (5) Malnutrition Status: Acute Current Visit: No Code(s): E46 - Unspecified protein-calorie malnutrition Type of Wound Date of Service: 08/18/17 Chief Complaint: Ulcer on right heel History of Wound: This is a 67-year-old white male who presents to the wound care center today for evaluation of a right heel ulcer. He has a past medical history as described above. The patient states that on the night of 06/06/2017, his heel protectors came off all night in bed and shortly after he noted an ulceration on his right heel and a purplish discoloration on his left heel. He states that there has been yellow drainage coming from his right heel and that yesterday he started using Granulex and Aquacel silver on the right heel. He denies any pain or foul-smelling discharge, however he does state that he has decreased sensation to his lower extremities due to his history of a spinal cord injury in high school. He currently has a suprapubic catheter as well due to his history of recurrent UTIs and obstructive uropathy. He also notes that his low air loss hospital bed is needing to be repaired so he is unable to use this at this time. The patient does state that he has a history of ulcerations on his right heel in the past where he had to be seen at a wound care center and ended up needing to have skin substitutes applied. He does note that he lives home alone and that he receives home health throughout the week. Patient was then referred to Dr. Gan at his office, who subsequently admitted the patient on Jul 04, for IV antibiotics and evaluation by ID. Infectious disease planned to d/c patient home on doxy 100mg bid, amoxicillin 500mg tid, and flagyl 500mg tid for planned 6 week course. He has since discharge been receiving daily dressing changes consisting of aquacel ag and a dry sterile dressing as well as wearing his PRAFO boots at all times. He otherwise denies any signs of systemic infection and denies any fever, chills, nausea, vomiting, chest pain or pressure, syncope or presyncopal episodes. Progress of Wound: Ulcer appears to be improving again this week compared to last. No undermining noted again this week. He has been undergoing daily chris dressing changes over the last week. He says he has been wearing his PRAFO boots as well. He denies any feeling of nausea, vomiting, fever, or chills currently. - Physical Exam Vital Signs Temp Pulse Resp BP 97.8 F 82 18 112/68 08/18/17 11:50 08/18/17 11:50 08/18/17 11:50 08/18/17 11:50 General: Alert, Oriented x3, Cooperative, No apparent distress Extremities: Capillary Refill Less than 3 Seconds, No Calf Tenderness - negative more and juarez sign, Diminished Peripheral Pulses Skin: Ulcer/ Wound - Ulcer to right posterior heel. Measurements noted below. Ulcer base is a mixture of granular tissue, slough, fibrin. No undermining this week. Some surrounding hyperkeratotic tissue. No bone appreciated again today. No malodor, no purulence, no surrounding cellulitis, and no increased warmth noted. Wound Measurements and Assessment WC - Nurse 1 - General Ulcer Measurement Start: 07/21/17 10:00 Freq: Status: Active Protocol: Activity Type Activity Date Activity User E-Sign Co-Sign Detail Recorded Client Recorded Date Recorded By Document 08/18/17 11:50 DL [id number] 08/18/17 12:00 DL 08/18/17 11:50 Wound Center Nurse 1 [Ulcer Assessment] #11- RT HEEL -Combined with other wound No -Current Size (cm) - Length 0.8 -Current Size (cm) - Width 0.7 -Current Size (cm) - Depth 0.2 -Total Square Cm 0.56 -Photo Taken No -Undermining/Tunneling No -Circular Undermining No -Exudate Amt Small (1-33%) -Exudate Type Serosanguineous -Wound Margin Flat & Intact -Granulation Amt Small (1-33%) -Granulation Quality Pale -Slough/Fibrin Yes -Necrosis Amt Medium (34-66%) -Necrotic Tissue Type Adherent Slough -Structure Exposed None/Limited to Skin Breakdown -Texture (Francia-wound Skin Appearance) Assessed Scarring -Moisture (Francia-wound Skin Appearance Assessed ) Dry/Scaly -Color (Francia-wound Skin Appearance) Assessed Erythema -Temperature (Francia-wound Skin No Abnormality Appearance) (Pt Warm) -Ulcer Cleansing Rinsed/ Irrigated with Saline -Foul Odor after Cleansing No -Anesthetic Used 4% Lidocaine Solution [Edema Assessment] -Lower Limb Edema Present No WC - Nurse 2 - General Ulcer CM Notes Start: 07/21/17 10:00 Freq: Status: Active Protocol: Activity Type Activity Date Activity User E-Sign Co-Sign Detail Recorded Client Recorded Date Recorded By Document 08/18/17 13:24 MW [id number] 08/18/17 13:24 MW 08/18/17 13:24 Wound Center Nurse 2 [Procedure/Treatment] #11- RT HEEL -Time 13:24 -Correct Patient Yes -Correct Side, Site, Position Yes -Correct Procedure Yes -Procedure Performed Yes -Type of Procedure Debridement -Clinical Debridement Subcutaneous -Post Debridement Size (cm) - Length 1.3 -Post Debridement Size (cm) - Width 1.3 -Post Debridement Size (cm) - Depth 0.2 -Total Square Cm 1.69 -Wound/Ulcer Outcome Not Healed -Ulcer Cleansing Rinsed/ Irrigated with Saline -Foul Odor after Cleansing No -Bioengineered Tissue No -Bleeding Controlled with Pressure -Treatment Response Procedure Tolerated Well [See Physician Procedure note for Specifics] Pain Scale: 0-10 Numeric [Pain] -Is Patient Pain Free? Yes Musculoskeletal: - - muscle wasting Neurological: - - Patient is incomplete quadriplegic with only very slight sensation to parts of feet/ankles Psych/Mental Status: Normal Affect, Appropriate Debridement Note Post-Debridement Measurements/Treatment WC - Nurse 2 - General Ulcer CM Notes Start: 07/21/17 10:00 Freq: Status: Active Protocol: Activity Type Activity Date Activity User E-Sign Co-Sign Detail Recorded Client Recorded Date Recorded By Document 07/21/17 11:01 MW [id number] 07/21/17 11:02 MW Document 07/28/17 12:28 MW [id number] 07/28/17 12:29 MW Document 08/04/17 11:54 MW [id number] 08/04/17 11:59 MW Document 08/11/17 11:53 MW [id number] 08/11/17 11:57 MW Document 08/18/17 13:24 MW [id number] 08/18/17 13:24 MW 07/21/17 07/28/17 08/04/17 11:01 12:28 11:54 Wound Center Nurse 2 #11- RT HEEL -Time 11: 12:28 11:55 -Correct Patient Yes Yes Yes -Correct Side, Site, Position Yes Yes Yes -Correct Procedure Yes Yes Yes -Procedure Performed Yes Yes Yes -Type of Procedure Debridement Debridement Debridement -Clinical Debridement Subcutaneous Subcutaneous Subcutaneous -Post Debridement Size (cm) - Length 2.2 2.5 1.6 -Post Debridement Size (cm) - Width 1.7 1.6 1.7 -Post Debridement Size (cm) - Depth 0.2 0.2 0.2 -Total Square Cm 3.74 4.00 2.72 -Wound/Ulcer Outcome Not Healed Not Healed Not Healed -Ulcer Cleansing Rinsed/ Rinsed/ Rinsed/ Irrigated with Irrigated with Irrigated with Saline Saline Saline -Foul Odor after Cleansing No No No -Bioengineered Tissue No No No -Bleeding Controlled with Pressure Pressure Pressure -Treatment Response Procedure Procedure Procedure Tolerated Well Tolerated Well Tolerated Well Pain Scale: 0-10 Numeric Is Patient Pain Free? Yes Yes Yes 08/11/17 08/18/17 11:53 13:24 Wound Center Nurse 2 #11- RT HEEL -Time 11:53 13:24 -Correct Patient Yes Yes -Correct Side, Site, Position Yes Yes -Correct Procedure Yes Yes -Procedure Performed Yes Yes -Type of Procedure Debridement Debridement -Clinical Debridement Subcutaneous Subcutaneous -Post Debridement Size (cm) - Length 1.3 1.3 -Post Debridement Size (cm) - Width 1.4 1.3 -Post Debridement Size (cm) - Depth 0.2 0.2 -Total Square Cm 1.82 1.69 -Wound/Ulcer Outcome Not Healed Not Healed -Ulcer Cleansing Rinsed/ Rinsed/ Irrigated with Irrigated with Saline Saline -Foul Odor after Cleansing No No -Bioengineered Tissue No No -Bleeding Controlled with Pressure Pressure -Treatment Response Procedure Procedure Tolerated Well Tolerated Well Pain Scale: 0-10 Numeric Is Patient Pain Free? Yes Yes Wound debrided: right posterior heel Laterality: Right Wound Grade/Stage: 2 Type of Debridement: Excisional debridement Anesthesia Used: 4% Lidocaine Solution Depth: in the subcutaneous layer Percentage of wound debrided: 100 Instrument Used: #15 blade Tissue Removed: Slough, fibrin, undermining tissue, hyperkeratotic tissue Severity: Fat Layer Exposed Amount of bleeding with debridement: Mild Bleeding Controlled with: Pressure Patient tolerated procedure well Assessment/Plan Assessment: Ulcer to posterior right heel. Plan: Patient was again examined and evaluated in detail today. The patient has been receiving daily dressing changes consisting of chris, dry sterile dressing, and wearing PRAFO boots at all times. His ulcer looks slightly improved this week again. The ulcer was carefully debrided as noted in the clinical panel. Following debridement, the site was dressed with chris, with a padded dry sterile dressing and his PRAFO boots. He is to have his dressing changed every other day. Patient was again educated on the importance of wearing the offloading PRAFO boots at all times to keep pressure off of his heels. He says he understands. He has home health care to help change dressings as described above, every other day. He is to continue antibiotics per infectious disease. We will check with his insurance and see if we can approve the patient to start puraply dressing changes next week. He was educated on all signs and symptoms of local and systemic infection and was instructed to go to the ER immediately should he notice any. All questions were answered to the patient's satisfaction. He will follow up in clinic in one week to check on progress, or sooner if needed.
--- NOTE | 2017-08-18 15:56 | PN.PCM_ITS ---
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 (2) Delayed wound healing Status: Acute Current Visit: No Code(s): T14.8XXD - Other injury of unspecified body region, subsequent encounter (3) Type 2 diabetes mellitus with diabetic polyneuropathy Status: Acute Current Visit: No Code(s): E11.42 - Type 2 diabetes mellitus with diabetic polyneuropathy (4) Chronic incomplete quadriplegia Status: Acute Current Visit: No Code(s): G82.50 - Quadriplegia, unspecified (5) Malnutrition Status: Acute Current Visit: No Code(s): E46 - Unspecified protein-calorie malnutrition Type of Wound Date of Service: 08/18/17 Chief Complaint: Ulcer on right heel History of Wound: This is a 67-year-old white male who presents to the wound care center today for evaluation of a right heel ulcer. He has a past medical history as described above. The patient states that on the night of 06/06/2017, his heel protectors came off all night in bed and shortly after he noted an ulceration on his right heel and a purplish discoloration on his left heel. He states that there has been yellow drainage coming from his right heel and that yesterday he started using Granulex and Aquacel silver on the right heel. He denies any pain or foul-smelling discharge, however he does state that he has decreased sensation to his lower extremities due to his history of a spinal cord injury in high school. He currently has a suprapubic catheter as well due to his history of recurrent UTIs and obstructive uropathy. He also notes that his low air loss hospital bed is needing to be repaired so he is unable to use this at this time. The patient does state that he has a history of ulcerations on his right heel in the past where he had to be seen at a wound care center and ended up needing to have skin substitutes applied. He does note that he lives home alone and that he receives home health throughout the week. Patient was then referred to Dr. Gan at his office, who subsequently admitted the patient on Jul 04, for IV antibiotics and evaluation by ID. Infectious disease planned to d/c patient home on doxy 100mg bid, amoxicillin 500mg tid, and flagyl 500mg tid for planned 6 week course. He has since discharge been receiving daily dressing changes consisting of aquacel ag and a dry sterile dressing as well as wearing his PRAFO boots at all times. He otherwise denies any signs of systemic infection and denies any fever, chills, nausea, vomiting, chest pain or pressure, syncope or presyncopal episodes. Progress of Wound: Ulcer appears to be improving again this week compared to last. No undermining noted again this week. He has been undergoing daily chris dressing changes over the last week. He says he has been wearing his PRAFO boots as well. He denies any feeling of nausea, vomiting, fever, or chills currently. - Physical Exam Vital Signs Temp Pulse Resp BP 97.8 F 82 18 112/68 08/18/17 11:50 08/18/17 11:50 08/18/17 11:50 08/18/17 11:50 General: Alert, Oriented x3, Cooperative, No apparent distress Extremities: Capillary Refill Less than 3 Seconds, No Calf Tenderness - negative more and juarez sign, Diminished Peripheral Pulses Skin: Ulcer/ Wound - Ulcer to right posterior heel. Measurements noted below. Ulcer base is a mixture of granular tissue, slough, fibrin. No undermining this week. Some surrounding hyperkeratotic tissue. No bone appreciated again today. No malodor, no purulence, no surrounding cellulitis, and no increased warmth noted. Wound Measurements and Assessment WC - Nurse 1 - General Ulcer Measurement Start: 07/21/17 10:00 Freq: Status: Active Protocol: Activity Type Activity Date Activity User E-Sign Co-Sign Detail Recorded Client Recorded Date Recorded By Document 08/18/17 11:50 DL [id number] 08/18/17 12:00 DL 08/18/17 11:50 Wound Center Nurse 1 [Ulcer Assessment] #11- RT HEEL -Combined with other wound No -Current Size (cm) - Length 0.8 -Current Size (cm) - Width 0.7 -Current Size (cm) - Depth 0.2 -Total Square Cm 0.56 -Photo Taken No -Undermining/Tunneling No -Circular Undermining No -Exudate Amt Small (1-33%) -Exudate Type Serosanguineous -Wound Margin Flat & Intact -Granulation Amt Small (1-33%) -Granulation Quality Pale -Slough/Fibrin Yes -Necrosis Amt Medium (34-66%) -Necrotic Tissue Type Adherent Slough -Structure Exposed None/Limited to Skin Breakdown -Texture (Francia-wound Skin Appearance) Assessed Scarring -Moisture (Francia-wound Skin Appearance Assessed ) Dry/Scaly -Color (Francia-wound Skin Appearance) Assessed Erythema -Temperature (Francia-wound Skin No Abnormality Appearance) (Pt Warm) -Ulcer Cleansing Rinsed/ Irrigated with Saline -Foul Odor after Cleansing No -Anesthetic Used 4% Lidocaine Solution [Edema Assessment] -Lower Limb Edema Present No WC - Nurse 2 - General Ulcer CM Notes Start: 07/21/17 10:00 Freq: Status: Active Protocol: Activity Type Activity Date Activity User E-Sign Co-Sign Detail Recorded Client Recorded Date Recorded By Document 08/18/17 13:24 MW [id number] 08/18/17 13:24 MW 08/18/17 13:24 Wound Center Nurse 2 [Procedure/Treatment] #11- RT HEEL -Time 13:24 -Correct Patient Yes -Correct Side, Site, Position Yes -Correct Procedure Yes -Procedure Performed Yes -Type of Procedure Debridement -Clinical Debridement Subcutaneous -Post Debridement Size (cm) - Length 1.3 -Post Debridement Size (cm) - Width 1.3 -Post Debridement Size (cm) - Depth 0.2 -Total Square Cm 1.69 -Wound/Ulcer Outcome Not Healed -Ulcer Cleansing Rinsed/ Irrigated with Saline -Foul Odor after Cleansing No -Bioengineered Tissue No -Bleeding Controlled with Pressure -Treatment Response Procedure Tolerated Well [See Physician Procedure note for Specifics] Pain Scale: 0-10 Numeric [Pain] -Is Patient Pain Free? Yes Musculoskeletal: - - muscle wasting Neurological: - - Patient is incomplete quadriplegic with only very slight sensation to parts of feet/ankles Psych/Mental Status: Normal Affect, Appropriate Debridement Note Post-Debridement Measurements/Treatment WC - Nurse 2 - General Ulcer CM Notes Start: 07/21/17 10:00 Freq: Status: Active Protocol: Activity Type Activity Date Activity User E-Sign Co-Sign Detail Recorded Client Recorded Date Recorded By Document 07/21/17 11:01 MW [id number] 07/21/17 11:02 MW Document 07/28/17 12:28 MW [id number] 07/28/17 12:29 MW Document 08/04/17 11:54 MW [id number] 08/04/17 11:59 MW Document 08/11/17 11:53 MW [id number] 08/11/17 11:57 MW Document 08/18/17 13:24 MW [id number] 08/18/17 13:24 MW 07/21/17 07/28/17 08/04/17 11:01 12:28 11:54 Wound Center Nurse 2 #11- RT HEEL -Time 11: 12:28 11:55 -Correct Patient Yes Yes Yes -Correct Side, Site, Position Yes Yes Yes -Correct Procedure Yes Yes Yes -Procedure Performed Yes Yes Yes -Type of Procedure Debridement Debridement Debridement -Clinical Debridement Subcutaneous Subcutaneous Subcutaneous -Post Debridement Size (cm) - Length 2.2 2.5 1.6 -Post Debridement Size (cm) - Width 1.7 1.6 1.7 -Post Debridement Size (cm) - Depth 0.2 0.2 0.2 -Total Square Cm 3.74 4.00 2.72 -Wound/Ulcer Outcome Not Healed Not Healed Not Healed -Ulcer Cleansing Rinsed/ Rinsed/ Rinsed/ Irrigated with Irrigated with Irrigated with Saline Saline Saline -Foul Odor after Cleansing No No No -Bioengineered Tissue No No No -Bleeding Controlled with Pressure Pressure Pressure -Treatment Response Procedure Procedure Procedure Tolerated Well Tolerated Well Tolerated Well Pain Scale: 0-10 Numeric Is Patient Pain Free? Yes Yes Yes 08/11/17 08/18/17 11:53 13:24 Wound Center Nurse 2 #11- RT HEEL -Time 11:53 13:24 -Correct Patient Yes Yes -Correct Side, Site, Position Yes Yes -Correct Procedure Yes Yes -Procedure Performed Yes Yes -Type of Procedure Debridement Debridement -Clinical Debridement Subcutaneous Subcutaneous -Post Debridement Size (cm) - Length 1.3 1.3 -Post Debridement Size (cm) - Width 1.4 1.3 -Post Debridement Size (cm) - Depth 0.2 0.2 -Total Square Cm 1.82 1.69 -Wound/Ulcer Outcome Not Healed Not Healed -Ulcer Cleansing Rinsed/ Rinsed/ Irrigated with Irrigated with Saline Saline -Foul Odor after Cleansing No No -Bioengineered Tissue No No -Bleeding Controlled with Pressure Pressure -Treatment Response Procedure Procedure Tolerated Well Tolerated Well Pain Scale: 0-10 Numeric Is Patient Pain Free? Yes Yes Wound debrided: right posterior heel Laterality: Right Wound Grade/Stage: 2 Type of Debridement: Excisional debridement Anesthesia Used: 4% Lidocaine Solution Depth: in the subcutaneous layer Percentage of wound debrided: 100 Instrument Used: #15 blade Tissue Removed: Slough, fibrin, undermining tissue, hyperkeratotic tissue Severity: Fat Layer Exposed Amount of bleeding with debridement: Mild Bleeding Controlled with: Pressure Patient tolerated procedure well Assessment/Plan Assessment: Ulcer to posterior right heel. Plan: Patient was again examined and evaluated in detail today. The patient has been receiving daily dressing changes consisting of chris, dry sterile dressing , and wearing PRAFO boots at all times. His ulcer looks slightly improved this week again. The ulcer was carefully debrided as noted in the clinical panel. Following debridement, the site was dressed with chris, with a padded dry sterile dressing and his PRAFO boots. He is to have his dressing changed every other day. Patient was again educated on the importance of wearing the offloading PRAFO boots at all times to keep pressure off of his heels. He says he understands. He has home health care to help change dressings as described above, every other day. He is to continue antibiotics per infectious disease. We will check with his insurance and see if we can approve the patient to start puraply dressing changes next week. He was educated on all signs and symptoms of local and systemic infection and was instructed to go to the ER immediately should he notice any. All questions were answered to the patient's satisfaction. He will follow up in clinic in one week to check on progress, or sooner if needed.
== END 2017-08-20 23:59 ==
LOC: WC 11:15
PROVIDERS: Visit Provider Podiatrist
DX: E11.621 Type 2 diabetes mellitus with foot ulcer (principal); E11.42 Type 2 diabetes mellitus with diabetic polyneuropathy; L97.416 Non-pressure chronic ulcer of right heel and midfoot with bone involvement without evidence of necrosis; Z45.2 Encounter for adjustment and management of vascular access device; G82.50 Quadriplegia, unspecified
CPT/HCPCS: 11042; 96523

== ENCOUNTER 2017-09-15 11:15 | Outpatient (RCR) | payer MEDICARE, OTHER, SELFPAY ==
[2017-08-21 00:47] VITALS: BP 118/69; PULSE 82; RESP 18; TEMP 36.6; BMI 26.6
[2017-08-25 11:36] VITALS: BP 112/76; PULSE 77; RESP 18; TEMP 36; BMI 26.6
--- NOTE | 2017-08-25 14:28 | PCM.WC.PN ---
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 (2) Malnutrition Status: Acute Current Visit: No Code(s): E46 - Unspecified protein-calorie malnutrition (3) Delayed wound healing Status: Acute Current Visit: No Code(s): T14.8XXD - Other injury of unspecified body region, subsequent encounter (4) Type 2 diabetes mellitus with diabetic polyneuropathy Status: Acute Current Visit: No Code(s): E11.42 - Type 2 diabetes mellitus with diabetic polyneuropathy (5) Chronic incomplete quadriplegia Status: Acute Current Visit: No Code(s): G82.50 - Quadriplegia, unspecified Type of Wound Date of Service: 08/25/17 Chief Complaint: Ulcer on right heel History of Wound: This is a 67-year-old white male who presents to the wound care center today for evaluation of a right heel ulcer. He has a past medical history as described above. The patient states that on the night of 06/06/2017, his heel protectors came off all night in bed and shortly after he noted an ulceration on his right heel and a purplish discoloration on his left heel. He states that there has been yellow drainage coming from his right heel and that yesterday he started using Granulex and Aquacel silver on the right heel. He denies any pain or foul-smelling discharge, however he does state that he has decreased sensation to his lower extremities due to his history of a spinal cord injury in high school. He currently has a suprapubic catheter as well due to his history of recurrent UTIs and obstructive uropathy. He also notes that his low air loss hospital bed is needing to be repaired so he is unable to use this at this time. The patient does state that he has a history of ulcerations on his right heel in the past where he had to be seen at a wound care center and ended up needing to have skin substitutes applied. He does note that he lives home alone and that he receives home health throughout the week. Patient was then referred to Dr. Gan at his office, who subsequently admitted the patient on Jul 04, for IV antibiotics and evaluation by ID. Infectious disease planned to d/c patient home on doxy 100mg bid, amoxicillin 500mg tid, and flagyl 500mg tid for planned 6 week course. He has since discharge been receiving daily dressing changes consisting of aquacel ag and a dry sterile dressing as well as wearing his PRAFO boots at all times. He otherwise denies any signs of systemic infection and denies any fever, chills, nausea, vomiting, chest pain or pressure, syncope or presyncopal episodes. Progress of Wound: Ulcer appears to be about the same in appearance as compared to last week. No undermining noted again this week. He has been undergoing every other day chris dressing changes over the last week. He says he has been wearing his PRAFO boots as well. He denies any feeling of nausea, vomiting, fever, or chills currently. - Physical Exam Vital Signs Temp Pulse Resp BP 96.8 F L 77 18 112/76 08/25/17 11:36 08/25/17 11:36 08/25/17 11:36 08/25/17 11:36 General: Alert, Oriented x3, Cooperative, No apparent distress Extremities: Capillary Refill Less than 3 Seconds, No Calf Tenderness - negative more and juarez sign, Diminished Peripheral Pulses Skin: Ulcer/ Wound - Ulcer 2 right posterior heel with measurements noted below. The ulcer base is a mixture of granular tissue, slough, fibrin with some surrounding hyperkeratotic tissue appreciated. Ulcer appears similar in appearance to last week. No undermining noted today. There is no malodor, no purulence, no surrounding cellulitis, and no increased warmth appreciated at this time. Wound Measurements and Assessment WC - Nurse 1 - General Ulcer Measurement Start: 08/25/17 11:35 Freq: Status: Active Protocol: Activity Type Activity Date Activity User E-Sign Co-Sign Detail Recorded Client Recorded Date Recorded By Document 08/25/17 11:36 [id number] 08/25/17 11:38 08/25/17 11:36 Wound Center Nurse 1 [Ulcer Assessment] #11- RT HEEL -Combined with other wound No -Current Size (cm) - Length 1.5 -Current Size (cm) - Width 1.0 -Current Size (cm) - Depth 0.1 -Total Square Cm 1.50 -Photo Taken No -Epithelialization Small 1-33% -Tunneling No -Undermining/Tunneling No -Circular Undermining No -Classification - Thickness Full Thickness without Exposed Support Structure -Exudate Amt Small (1-33%) -Exudate Type Serosanguineous -Wound Margin Distinct, Outline Attached -Granulation Amt Small (1-33%) -Granulation Quality [place] -Slough/Fibrin Yes -Necrosis Amt Large (67-100%) -Necrotic Tissue Type Adherent Slough -Structure Exposed Fascia Fat Layer Exposed -Texture (Francia-wound Skin Appearance) Callus Scarring -Moisture (Francia-wound Skin Appearance Dry/Scaly ) -Color (Francia-wound Skin Appearance) Erythema -Temperature (Francia-wound Skin No Abnormality Appearance) (Pt Warm) -Tenderness on Palpation (Francia-wound No Skin Appearance) -Ulcer Cleansing Rinsed/ Irrigated with Saline -Foul Odor after Cleansing No -Anesthetic Used 4% Lidocaine Solution [Edema Assessment] -Lower Limb Edema Present No WC - Nurse 2 - General Ulcer CM Notes Start: 08/25/17 11:35 Freq: Status: Active Protocol: Activity Type Activity Date Activity User E-Sign Co-Sign Detail Recorded Client Recorded Date Recorded By Document 08/25/17 12:48 MW [id number] 08/25/17 12:51 MW 08/25/17 12:48 Wound Center Nurse 2 [Procedure/Treatment] #11- RT HEEL -Time 12:30 -Correct Patient Yes -Correct Side, Site, Position Yes -Correct Procedure Yes -Procedure Performed Yes -Type of Procedure Debridement -Clinical Debridement Subcutaneous -Post Debridement Size (cm) - Length 1.2 -Post Debridement Size (cm) - Width 0.9 -Post Debridement Size (cm) - Depth 0.2 -Total Square Cm 1.08 -Wound/Ulcer Outcome Not Healed -Ulcer Cleansing Rinsed/ Irrigated with Saline -Foul Odor after Cleansing No -Type of bioengineered Tissue [id number] -Expiration Date 03/11/19 -Product Lot Number [id number] -Percent Used 75 -Saline Lot Number [id number] -Bleeding Controlled with Pressure -Treatment Response Procedure Tolerated Well [See Physician Procedure note for Specifics] Pain Scale: 0-10 Numeric [Pain] -Is Patient Pain Free? Yes Musculoskeletal: - Neurological: - - Patient is incomplete quadriplegic with only very slight sensation to some parts of his feet/ankles Psych/Mental Status: Normal Affect, Appropriate Debridement Note Post-Debridement Measurements/Treatment WC - Nurse 2 - General Ulcer CM Notes Start: 08/25/17 11:35 Freq: Status: Active Protocol: Activity Type Activity Date Activity User E-Sign Co-Sign Detail Recorded Client Recorded Date Recorded By Document 08/25/17 12:48 MW [id number] 08/25/17 12:51 MW 08/25/17 12:48 Wound Center Nurse 2 #11- RT HEEL -Time 12:30 -Correct Patient Yes -Correct Side, Site, Position Yes -Correct Procedure Yes -Procedure Performed Yes -Type of Procedure Debridement -Clinical Debridement Subcutaneous -Post Debridement Size (cm) - Length 1.2 -Post Debridement Size (cm) - Width 0.9 -Post Debridement Size (cm) - Depth 0.2 -Total Square Cm 1.08 -Wound/Ulcer Outcome Not Healed -Ulcer Cleansing Rinsed/ Irrigated with Saline -Foul Odor after Cleansing No -Type of bioengineered Tissue [id number] -Expiration Date 03/11/19 -Product Lot Number [id number] -Percent Used 75 -Saline Lot Number [id number] -Bleeding Controlled with Pressure -Treatment Response Procedure Tolerated Well Pain Scale: 0-10 Numeric Is Patient Pain Free? Yes Wound debrided: Right posterior heel Laterality: Right Wound Grade/Stage: 2 Type of Debridement: Excisional debridement Anesthesia Used: 4% Lidocaine Solution Depth: in the subcutaneous layer Percentage of wound debrided: 100 Instrument Used: #15 blade, Forceps, - - Tissue nipper Tissue Removed: Adherent slough, fibrin, hyperkeratotic tissue Severity: Fat Layer Exposed Amount of bleeding with debridement: Mild Bleeding Controlled with: Pressure Patient tolerated procedure well Assessment/Plan Assessment: Ulcer to posterior right heel. Plan: Patient was again examined and evaluated in detail today. The patient has been receiving daily dressing changes consisting of chris, dry sterile dressing, and wearing PRAFO boots at all times. His ulcer looks about the same this week compared to last. The ulcer was carefully debrided as noted in the clinical panel with subcutaneous debridemetn. Following debridement, the first application of puraply was applied to the base, followed by wound veil, steri strips, and hydrogel, followed with a padded dry sterile dressing and his PRAFO boots. He is to keep the dressing below the wound veil and steristrips intact for a week. He is ok to change any dressings over the wound veil and steri strips. Patient was again educated on the importance of wearing the offloading PRAFO boots at all times to keep pressure off of his heels. He says he understands. He has home health care to help change dressings as described above. He is to continue antibiotics per infectious disease. He was educated on all signs and symptoms of local and systemic infection and was instructed to go to the ER immediately should he notice any. All questions were answered to the patient's satisfaction. He will follow up in clinic in one week to check on progress, or sooner if needed.
--- NOTE | 2017-08-25 14:36 | PN.PCM_ITS ---
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 (2) Malnutrition Status: Acute Current Visit: No Code(s): E46 - Unspecified protein-calorie malnutrition (3) Delayed wound healing Status: Acute Current Visit: No Code(s): T14.8XXD - Other injury of unspecified body region, subsequent encounter (4) Type 2 diabetes mellitus with diabetic polyneuropathy Status: Acute Current Visit: No Code(s): E11.42 - Type 2 diabetes mellitus with diabetic polyneuropathy (5) Chronic incomplete quadriplegia Status: Acute Current Visit: No Code(s): G82.50 - Quadriplegia, unspecified Type of Wound Date of Service: 08/25/17 Chief Complaint: Ulcer on right heel History of Wound: This is a 67-year-old white male who presents to the wound care center today for evaluation of a right heel ulcer. He has a past medical history as described above. The patient states that on the night of 06/06/2017, his heel protectors came off all night in bed and shortly after he noted an ulceration on his right heel and a purplish discoloration on his left heel. He states that there has been yellow drainage coming from his right heel and that yesterday he started using Granulex and Aquacel silver on the right heel. He denies any pain or foul-smelling discharge, however he does state that he has decreased sensation to his lower extremities due to his history of a spinal cord injury in high school. He currently has a suprapubic catheter as well due to his history of recurrent UTIs and obstructive uropathy. He also notes that his low air loss hospital bed is needing to be repaired so he is unable to use this at this time. The patient does state that he has a history of ulcerations on his right heel in the past where he had to be seen at a wound care center and ended up needing to have skin substitutes applied. He does note that he lives home alone and that he receives home health throughout the week. Patient was then referred to Dr. Gan at his office, who subsequently admitted the patient on Jul 04, for IV antibiotics and evaluation by ID. Infectious disease planned to d/c patient home on doxy 100mg bid, amoxicillin 500mg tid, and flagyl 500mg tid for planned 6 week course. He has since discharge been receiving daily dressing changes consisting of aquacel ag and a dry sterile dressing as well as wearing his PRAFO boots at all times. He otherwise denies any signs of systemic infection and denies any fever, chills, nausea, vomiting, chest pain or pressure, syncope or presyncopal episodes. Progress of Wound: Ulcer appears to be about the same in appearance as compared to last week. No undermining noted again this week. He has been undergoing every other day chris dressing changes over the last week. He says he has been wearing his PRAFO boots as well. He denies any feeling of nausea, vomiting, fever, or chills currently. - Physical Exam Vital Signs Temp Pulse Resp BP 96.8 F L 77 18 112/76 08/25/17 11:36 08/25/17 11:36 08/25/17 11:36 08/25/17 11:36 General: Alert, Oriented x3, Cooperative, No apparent distress Extremities: Capillary Refill Less than 3 Seconds, No Calf Tenderness - negative more and juarez sign, Diminished Peripheral Pulses Skin: Ulcer/ Wound - Ulcer 2 right posterior heel with measurements noted below. The ulcer base is a mixture of granular tissue, slough, fibrin with some surrounding hyperkeratotic tissue appreciated. Ulcer appears similar in appearance to last week. No undermining noted today. There is no malodor, no purulence, no surrounding cellulitis, and no increased warmth appreciated at this time. Wound Measurements and Assessment WC - Nurse 1 - General Ulcer Measurement Start: 08/25/17 11:35 Freq: Status: Active Protocol: Activity Type Activity Date Activity User E-Sign Co-Sign Detail Recorded Client Recorded Date Recorded By Document 08/25/17 11:36 [id number] 08/25/17 11:38 08/25/17 11:36 Wound Center Nurse 1 [Ulcer Assessment] #11- RT HEEL -Combined with other wound No -Current Size (cm) - Length 1.5 -Current Size (cm) - Width 1.0 -Current Size (cm) - Depth 0.1 -Total Square Cm 1.50 -Photo Taken No -Epithelialization Small 1-33% -Tunneling No -Undermining/Tunneling No -Circular Undermining No -Classification - Thickness Full Thickness without Exposed Support Structure -Exudate Amt Small (1-33%) -Exudate Type Serosanguineous -Wound Margin Distinct, Outline Attached -Granulation Amt Small (1-33%) -Granulation Quality [place] -Slough/Fibrin Yes -Necrosis Amt Large (67-100%) -Necrotic Tissue Type Adherent Slough -Structure Exposed Fascia Fat Layer Exposed -Texture (Francia-wound Skin Appearance) Callus Scarring -Moisture (Francia-wound Skin Appearance Dry/Scaly ) -Color (Francia-wound Skin Appearance) Erythema -Temperature (Francia-wound Skin No Abnormality Appearance) (Pt Warm) -Tenderness on Palpation (Francia-wound No Skin Appearance) -Ulcer Cleansing Rinsed/ Irrigated with Saline -Foul Odor after Cleansing No -Anesthetic Used 4% Lidocaine Solution [Edema Assessment] -Lower Limb Edema Present No WC - Nurse 2 - General Ulcer CM Notes Start: 08/25/17 11:35 Freq: Status: Active Protocol: Activity Type Activity Date Activity User E-Sign Co-Sign Detail Recorded Client Recorded Date Recorded By Document 08/25/17 12:48 MW [id number] 08/25/17 12:51 MW 08/25/17 12:48 Wound Center Nurse 2 [Procedure/Treatment] #11- RT HEEL -Time 12:30 -Correct Patient Yes -Correct Side, Site, Position Yes -Correct Procedure Yes -Procedure Performed Yes -Type of Procedure Debridement -Clinical Debridement Subcutaneous -Post Debridement Size (cm) - Length 1.2 -Post Debridement Size (cm) - Width 0.9 -Post Debridement Size (cm) - Depth 0.2 -Total Square Cm 1.08 -Wound/Ulcer Outcome Not Healed -Ulcer Cleansing Rinsed/ Irrigated with Saline -Foul Odor after Cleansing No -Type of bioengineered Tissue [id number] -Expiration Date 03/11/19 -Product Lot Number [id number] -Percent Used 75 -Saline Lot Number [id number] -Bleeding Controlled with Pressure -Treatment Response Procedure Tolerated Well [See Physician Procedure note for Specifics] Pain Scale: 0-10 Numeric [Pain] -Is Patient Pain Free? Yes Musculoskeletal: - Neurological: - - Patient is incomplete quadriplegic with only very slight sensation to some parts of his feet/ankles Psych/Mental Status: Normal Affect, Appropriate Debridement Note Post-Debridement Measurements/Treatment WC - Nurse 2 - General Ulcer CM Notes Start: 08/25/17 11:35 Freq: Status: Active Protocol: Activity Type Activity Date Activity User E-Sign Co-Sign Detail Recorded Client Recorded Date Recorded By Document 08/25/17 12:48 MW [id number] 08/25/17 12:51 MW 08/25/17 12:48 Wound Center Nurse 2 #11- RT HEEL -Time 12:30 -Correct Patient Yes -Correct Side, Site, Position Yes -Correct Procedure Yes -Procedure Performed Yes -Type of Procedure Debridement -Clinical Debridement Subcutaneous -Post Debridement Size (cm) - Length 1.2 -Post Debridement Size (cm) - Width 0.9 -Post Debridement Size (cm) - Depth 0.2 -Total Square Cm 1.08 -Wound/Ulcer Outcome Not Healed -Ulcer Cleansing Rinsed/ Irrigated with Saline -Foul Odor after Cleansing No -Type of bioengineered Tissue [id number] -Expiration Date 03/11/19 -Product Lot Number [id number] -Percent Used 75 -Saline Lot Number [id number] -Bleeding Controlled with Pressure -Treatment Response Procedure Tolerated Well Pain Scale: 0-10 Numeric Is Patient Pain Free? Yes Wound debrided: Right posterior heel Laterality: Right Wound Grade/Stage: 2 Type of Debridement: Excisional debridement Anesthesia Used: 4% Lidocaine Solution Depth: in the subcutaneous layer Percentage of wound debrided: 100 Instrument Used: #15 blade, Forceps, - - Tissue nipper Tissue Removed: Adherent slough, fibrin, hyperkeratotic tissue Severity: Fat Layer Exposed Amount of bleeding with debridement: Mild Bleeding Controlled with: Pressure Patient tolerated procedure well Assessment/Plan Assessment: Ulcer to posterior right heel. Plan: Patient was again examined and evaluated in detail today. The patient has been receiving daily dressing changes consisting of chris, dry sterile dressing , and wearing PRAFO boots at all times. His ulcer looks about the same this week compared to last. The ulcer was carefully debrided as noted in the clinical panel with subcutaneous debridemetn. Following debridement, the first application of puraply was applied to the base, followed by wound veil, steri strips, and hydrogel, followed with a padded dry sterile dressing and his PRAFO boots. He is to keep the dressing below the wound veil and steristrips intact for a week. He is ok to change any dressings over the wound veil and steri strips. Patient was again educated on the importance of wearing the offloading PRAFO boots at all times to keep pressure off of his heels. He says he understands. He has home health care to help change dressings as described above. He is to continue antibiotics per infectious disease. He was educated on all signs and symptoms of local and systemic infection and was instructed to go to the ER immediately should he notice any. All questions were answered to the patient's satisfaction. He will follow up in clinic in one week to check on progress, or sooner if needed.
[2017-09-01 11:39] VITALS: BP 144/95; PULSE 67; RESP 16; TEMP 35.9; BMI 26.6
--- NOTE | 2017-09-01 14:50 | PCM.WC.PN ---
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 (2) Malnutrition Status: Acute Current Visit: No Code(s): E46 - Unspecified protein-calorie malnutrition (3) Delayed wound healing Status: Acute Current Visit: No Code(s): T14.8XXD - Other injury of unspecified body region, subsequent encounter (4) Type 2 diabetes mellitus with diabetic polyneuropathy Status: Acute Current Visit: No Code(s): E11.42 - Type 2 diabetes mellitus with diabetic polyneuropathy (5) Chronic incomplete quadriplegia Status: Acute Current Visit: No Code(s): G82.50 - Quadriplegia, unspecified Type of Wound Date of Service: 09/01/17 Chief Complaint: Ulcer on right heel History of Wound: This is a 67-year-old white male who presents to the wound care center today for evaluation of a right heel ulcer. He has a past medical history as described above. The patient states that on the night of 06/06/2017, his heel protectors came off all night in bed and shortly after he noted an ulceration on his right heel and a purplish discoloration on his left heel. He states that there has been yellow drainage coming from his right heel and that yesterday he started using Granulex and Aquacel silver on the right heel. He denies any pain or foul-smelling discharge, however he does state that he has decreased sensation to his lower extremities due to his history of a spinal cord injury in high school. He currently has a suprapubic catheter as well due to his history of recurrent UTIs and obstructive uropathy. He also notes that his low air loss hospital bed is needing to be repaired so he is unable to use this at this time. The patient does state that he has a history of ulcerations on his right heel in the past where he had to be seen at a wound care center and ended up needing to have skin substitutes applied. He does note that he lives home alone and that he receives home health throughout the week. Patient was then referred to Dr. Gan at his office, who subsequently admitted the patient on Jul 04, for IV antibiotics and evaluation by ID. Infectious disease planned to d/c patient home on doxy 100mg bid, amoxicillin 500mg tid, and flagyl 500mg tid for planned 6 week course. He has since discharge been receiving daily dressing changes consisting of aquacel ag and a dry sterile dressing as well as wearing his PRAFO boots at all times. He otherwise denies any signs of systemic infection and denies any fever, chills, nausea, vomiting, chest pain or pressure, syncope or presyncopal episodes. Progress of Wound: Ulcer appears to be about the same in appearance as compared to last week with slight improvement to ulcer base post debridement. No undermining noted again this week. He had his first application of puraply last week and will have second application today. He says he has been wearing his PRAFO boots as well. He denies any feeling of nausea, vomiting, fever, or chills currently. - Physical Exam Vital Signs Temp Pulse Resp BP 96.7 F L 67 16 144/95 H 09/01/17 11:39 09/01/17 11:39 09/01/17 11:39 09/01/17 11:39 General: Alert, Oriented x3, Cooperative, No apparent distress Extremities: Capillary Refill Less than 3 Seconds, No Calf Tenderness - negative more and juarez sign, Diminished Peripheral Pulses Skin: Ulcer/ Wound - Ulcer to right posterior heel with measurements noted below. The ulcer base is a mixture of granular tissue, slough, fibrin with some surrounding hyperkeratotic tissue appreciated. Ulcer appears similar in appearance to last week with slight improvement to base when compared to last week. No undermining noted today. There is no malodor, no purulence, no surrounding cellulitis, and no increased warmth appreciated at this time. Wound Measurements and Assessment WC - Nurse 1 - General Ulcer Measurement Start: 08/25/17 11:35 Freq: Status: Active Protocol: Activity Type Activity Date Activity User E-Sign Co-Sign Detail Recorded Client Recorded Date Recorded By Document 09/01/17 11:39 [facility] [id number] 09/01/17 11:52 BM 09/01/17 11:39 Wound Center Nurse 1 [Ulcer Assessment] #11- RT HEEL -Combined with other wound No -Current Size (cm) - Length 2 -Current Size (cm) - Width 1.4 -Current Size (cm) - Depth 0.1 -Total Square Cm 2.8 -Photo Taken No -Epithelialization None Present -Tunneling No -Undermining/Tunneling No -Circular Undermining No -Exudate Amt Small (1-33%) -Exudate Type Serosanguineous -Wound Margin Distinct, Outline Attached -Granulation Amt None Present (0 %) -Slough/Fibrin Yes -Necrosis Amt Large (67-100%) -Necrotic Tissue Type Eschar -Structure Exposed N/A -Texture (Francia-wound Skin Appearance) Scarring -Moisture (Francia-wound Skin Appearance Dry/Scaly ) -Color (Francia-wound Skin Appearance) Erythema -Temperature (Francia-wound Skin No Abnormality Appearance) (Pt Warm) -Tenderness on Palpation (Francia-wound No Skin Appearance) -Ulcer Cleansing Rinsed/ Irrigated with Saline -Foul Odor after Cleansing No -Anesthetic Used 5% Lidocaine Gel WC - Nurse 2 - General Ulcer CM Notes Start: 08/25/17 11:35 Freq: Status: Active Protocol: Activity Type Activity Date Activity User E-Sign Co-Sign Detail Recorded Client Recorded Date Recorded By Document 09/01/17 12:42 MW [id number] 09/01/17 12:50 MW 09/01/17 12:42 Wound Center Nurse 2 [Procedure/Treatment] -Time 12:43 -Correct Patient Yes -Correct Side, Site, Position Yes -Correct Procedure Yes -Procedure Performed Yes -Type of Procedure Debridement -Clinical Debridement Subcutaneous -Post Debridement Size (cm) - Length 1.6 -Post Debridement Size (cm) - Width 1.7 -Post Debridement Size (cm) - Depth 0.2 -Total Square Cm 2.72 -Wound/Ulcer Outcome Not Healed -Ulcer Cleansing Rinsed/ Irrigated with Saline -Foul Odor after Cleansing No -Bioengineered Tissue Yes -Type of bioengineered Tissue [id number] -Expiration Date 03/11/19 -Product Lot Number [id number] -Percent Used 80 -Saline Lot Number [id number] -Bleeding Controlled with Pressure -Treatment Response Procedure Tolerated Well [See Physician Procedure note for Specifics] Pain Scale: 0-10 Numeric [Pain] -Is Patient Pain Free? Yes Musculoskeletal: Muscle Wasting Neurological: - - Patient is incomplete quadriplegic with only very slight sensation to some parts of his feet/ankles Psych/Mental Status: Normal Affect, Appropriate Debridement Note Post-Debridement Measurements/Treatment WC - Nurse 2 - General Ulcer CM Notes Start: 08/25/17 11:35 Freq: Status: Active Protocol: Activity Type Activity Date Activity User E-Sign Co-Sign Detail Recorded Client Recorded Date Recorded By Document 08/25/17 12:48 MW [id number] 08/25/17 12:51 MW Document 09/01/17 12:42 MW [id number] 09/01/17 12:50 MW 08/25/17 09/01/17 12:48 12:42 Wound Center Nurse 2 #11- RT HEEL -Time 12:30 12:43 -Correct Patient Yes Yes -Correct Side, Site, Position Yes Yes -Correct Procedure Yes Yes -Procedure Performed Yes Yes -Type of Procedure Debridement Debridement -Clinical Debridement Subcutaneous Subcutaneous -Post Debridement Size (cm) - Length 1.2 1.6 -Post Debridement Size (cm) - Width 0.9 1.7 -Post Debridement Size (cm) - Depth 0.2 0.2 -Total Square Cm 1.08 2.72 -Wound/Ulcer Outcome Not Healed Not Healed -Ulcer Cleansing Rinsed/ Rinsed/ Irrigated with Irrigated with Saline Saline -Foul Odor after Cleansing No No -Bioengineered Tissue Yes -Type of bioengineered Tissue [id number] -Expiration Date 03/11/19 03/11/19 -Product Lot Number [id number] -Percent Used 75 80 -Saline Lot Number [id number] -Bleeding Controlled with Pressure Pressure -Treatment Response Procedure Procedure Tolerated Well Tolerated Well Pain Scale: 0-10 Numeric Is Patient Pain Free? Yes Yes Wound debrided: right posterior heel Laterality: Right Wound Grade/Stage: 2 Type of Debridement: Excisional debridement Anesthesia Used: 4% Lidocaine Solution Depth: in the subcutaneous layer Percentage of wound debrided: 100 Instrument Used: #15 blade Tissue Removed: Adherent slough, fibrin, hyperkeratotic tissue Severity: Fat Layer Exposed Amount of bleeding with debridement: Mild Bleeding Controlled with: Pressure Patient tolerated procedure well Assessment/Plan Assessment: Ulcer to posterior right heel. Plan: Patient was again examined and evaluated in detail today. The ulcer was carefully subcutaneously debrided as noted in the clinical panel with. Following debridement, the second application of puraply was applied to the base, followed by wound veil, steri strips, and hydrogel, followed with a padded dry sterile dressing and his PRAFO boots. He is to keep the dressing below the wound veil and steristrips intact for a week. He is ok to change any dressings over the wound veil and steri strips. Patient was again educated on the importance of wearing the offloading PRAFO boots at all times to keep pressure off of his heels. He says he understands. He has home health care to help change dressings as described above. He is to continue antibiotics per infectious disease. He was educated on all signs and symptoms of local and systemic infection and was instructed to go to the ER immediately should he notice any. All questions were answered to the patient's satisfaction. He will follow up in clinic in one week to check on progress, or sooner if needed.
--- NOTE | 2017-09-01 14:55 | PN.PCM_ITS ---
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 (2) Malnutrition Status: Acute Current Visit: No Code(s): E46 - Unspecified protein-calorie malnutrition (3) Delayed wound healing Status: Acute Current Visit: No Code(s): T14.8XXD - Other injury of unspecified body region, subsequent encounter (4) Type 2 diabetes mellitus with diabetic polyneuropathy Status: Acute Current Visit: No Code(s): E11.42 - Type 2 diabetes mellitus with diabetic polyneuropathy (5) Chronic incomplete quadriplegia Status: Acute Current Visit: No Code(s): G82.50 - Quadriplegia, unspecified Type of Wound Date of Service: 09/01/17 Chief Complaint: Ulcer on right heel History of Wound: This is a 67-year-old white male who presents to the wound care center today for evaluation of a right heel ulcer. He has a past medical history as described above. The patient states that on the night of 06/06/2017, his heel protectors came off all night in bed and shortly after he noted an ulceration on his right heel and a purplish discoloration on his left heel. He states that there has been yellow drainage coming from his right heel and that yesterday he started using Granulex and Aquacel silver on the right heel. He denies any pain or foul-smelling discharge, however he does state that he has decreased sensation to his lower extremities due to his history of a spinal cord injury in high school. He currently has a suprapubic catheter as well due to his history of recurrent UTIs and obstructive uropathy. He also notes that his low air loss hospital bed is needing to be repaired so he is unable to use this at this time. The patient does state that he has a history of ulcerations on his right heel in the past where he had to be seen at a wound care center and ended up needing to have skin substitutes applied. He does note that he lives home alone and that he receives home health throughout the week. Patient was then referred to Dr. Gan at his office, who subsequently admitted the patient on Jul 04, for IV antibiotics and evaluation by ID. Infectious disease planned to d/c patient home on doxy 100mg bid, amoxicillin 500mg tid, and flagyl 500mg tid for planned 6 week course. He has since discharge been receiving daily dressing changes consisting of aquacel ag and a dry sterile dressing as well as wearing his PRAFO boots at all times. He otherwise denies any signs of systemic infection and denies any fever, chills, nausea, vomiting, chest pain or pressure, syncope or presyncopal episodes. Progress of Wound: Ulcer appears to be about the same in appearance as compared to last week with slight improvement to ulcer base post debridement. No undermining noted again this week. He had his first application of puraply last week and will have second application today. He says he has been wearing his PRAFO boots as well. He denies any feeling of nausea, vomiting, fever, or chills currently. - Physical Exam Vital Signs Temp Pulse Resp BP 96.7 F L 67 16 144/95 H 09/01/17 11:39 09/01/17 11:39 09/01/17 11:39 09/01/17 11:39 General: Alert, Oriented x3, Cooperative, No apparent distress Extremities: Capillary Refill Less than 3 Seconds, No Calf Tenderness - negative more and juarez sign, Diminished Peripheral Pulses Skin: Ulcer/ Wound - Ulcer to right posterior heel with measurements noted below. The ulcer base is a mixture of granular tissue, slough, fibrin with some surrounding hyperkeratotic tissue appreciated. Ulcer appears similar in appearance to last week with slight improvement to base when compared to last week. No undermining noted today. There is no malodor, no purulence, no surrounding cellulitis, and no increased warmth appreciated at this time. Wound Measurements and Assessment WC - Nurse 1 - General Ulcer Measurement Start: 08/25/17 11:35 Freq: Status: Active Protocol: Activity Type Activity Date Activity User E-Sign Co-Sign Detail Recorded Client Recorded Date Recorded By Document 09/01/17 11:39 [facility] [id number] 09/01/17 11:52 BM 09/01/17 11:39 Wound Center Nurse 1 [Ulcer Assessment] #11- RT HEEL -Combined with other wound No -Current Size (cm) - Length 2 -Current Size (cm) - Width 1.4 -Current Size (cm) - Depth 0.1 -Total Square Cm 2.8 -Photo Taken No -Epithelialization None Present -Tunneling No -Undermining/Tunneling No -Circular Undermining No -Exudate Amt Small (1-33%) -Exudate Type Serosanguineous -Wound Margin Distinct, Outline Attached -Granulation Amt None Present (0 %) -Slough/Fibrin Yes -Necrosis Amt Large (67-100%) -Necrotic Tissue Type Eschar -Structure Exposed N/A -Texture (Francia-wound Skin Appearance) Scarring -Moisture (Francia-wound Skin Appearance Dry/Scaly ) -Color (Francia-wound Skin Appearance) Erythema -Temperature (Francia-wound Skin No Abnormality Appearance) (Pt Warm) -Tenderness on Palpation (Francia-wound No Skin Appearance) -Ulcer Cleansing Rinsed/ Irrigated with Saline -Foul Odor after Cleansing No -Anesthetic Used 5% Lidocaine Gel WC - Nurse 2 - General Ulcer CM Notes Start: 08/25/17 11:35 Freq: Status: Active Protocol: Activity Type Activity Date Activity User E-Sign Co-Sign Detail Recorded Client Recorded Date Recorded By Document 09/01/17 12:42 MW [id number] 09/01/17 12:50 MW 09/01/17 12:42 Wound Center Nurse 2 [Procedure/Treatment] -Time 12:43 -Correct Patient Yes -Correct Side, Site, Position Yes -Correct Procedure Yes -Procedure Performed Yes -Type of Procedure Debridement -Clinical Debridement Subcutaneous -Post Debridement Size (cm) - Length 1.6 -Post Debridement Size (cm) - Width 1.7 -Post Debridement Size (cm) - Depth 0.2 -Total Square Cm 2.72 -Wound/Ulcer Outcome Not Healed -Ulcer Cleansing Rinsed/ Irrigated with Saline -Foul Odor after Cleansing No -Bioengineered Tissue Yes -Type of bioengineered Tissue [id number] -Expiration Date 03/11/19 -Product Lot Number [id number] -Percent Used 80 -Saline Lot Number [id number] -Bleeding Controlled with Pressure -Treatment Response Procedure Tolerated Well [See Physician Procedure note for Specifics] Pain Scale: 0-10 Numeric [Pain] -Is Patient Pain Free? Yes Musculoskeletal: Muscle Wasting Neurological: - - Patient is incomplete quadriplegic with only very slight sensation to some parts of his feet/ankles Psych/Mental Status: Normal Affect, Appropriate Debridement Note Post-Debridement Measurements/Treatment WC - Nurse 2 - General Ulcer CM Notes Start: 08/25/17 11:35 Freq: Status: Active Protocol: Activity Type Activity Date Activity User E-Sign Co-Sign Detail Recorded Client Recorded Date Recorded By Document 08/25/17 12:48 MW [id number] 08/25/17 12:51 MW Document 09/01/17 12:42 MW [id number] 09/01/17 12:50 MW 08/25/17 09/01/17 12:48 12:42 Wound Center Nurse 2 #11- RT HEEL -Time 12:30 12:43 -Correct Patient Yes Yes -Correct Side, Site, Position Yes Yes -Correct Procedure Yes Yes -Procedure Performed Yes Yes -Type of Procedure Debridement Debridement -Clinical Debridement Subcutaneous Subcutaneous -Post Debridement Size (cm) - Length 1.2 1.6 -Post Debridement Size (cm) - Width 0.9 1.7 -Post Debridement Size (cm) - Depth 0.2 0.2 -Total Square Cm 1.08 2.72 -Wound/Ulcer Outcome Not Healed Not Healed -Ulcer Cleansing Rinsed/ Rinsed/ Irrigated with Irrigated with Saline Saline -Foul Odor after Cleansing No No -Bioengineered Tissue Yes -Type of bioengineered Tissue [id number] -Expiration Date 03/11/19 03/11/19 -Product Lot Number [id number] -Percent Used 75 80 -Saline Lot Number [id number] -Bleeding Controlled with Pressure Pressure -Treatment Response Procedure Procedure Tolerated Well Tolerated Well Pain Scale: 0-10 Numeric Is Patient Pain Free? Yes Yes Wound debrided: right posterior heel Laterality: Right Wound Grade/Stage: 2 Type of Debridement: Excisional debridement Anesthesia Used: 4% Lidocaine Solution Depth: in the subcutaneous layer Percentage of wound debrided: 100 Instrument Used: #15 blade Tissue Removed: Adherent slough, fibrin, hyperkeratotic tissue Severity: Fat Layer Exposed Amount of bleeding with debridement: Mild Bleeding Controlled with: Pressure Patient tolerated procedure well Assessment/Plan Assessment: Ulcer to posterior right heel. Plan: Patient was again examined and evaluated in detail today. The ulcer was carefully subcutaneously debrided as noted in the clinical panel with. Following debridement, the second application of puraply was applied to the base , followed by wound veil, steri strips, and hydrogel, followed with a padded dry sterile dressing and his PRAFO boots. He is to keep the dressing below the wound veil and steristrips intact for a week. He is ok to change any dressings over the wound veil and steri strips. Patient was again educated on the importance of wearing the offloading PRAFO boots at all times to keep pressure off of his heels. He says he understands. He has home health care to help change dressings as described above. He is to continue antibiotics per infectious disease. He was educated on all signs and symptoms of local and systemic infection and was instructed to go to the ER immediately should he notice any. All questions were answered to the patient's satisfaction. He will follow up in clinic in one week to check on progress, or sooner if needed.
[2017-09-08 12:23] VITALS: BP 133/81; PULSE 64; RESP 18; TEMP 36.1; BMI 26.6
--- NOTE | 2017-09-08 14:33 | PCM.WC.PN ---
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 (2) Malnutrition Status: Acute Current Visit: No Code(s): E46 - Unspecified protein-calorie malnutrition (3) Delayed wound healing Status: Acute Current Visit: No Code(s): T14.8XXD - Other injury of unspecified body region, subsequent encounter (4) Type 2 diabetes mellitus with diabetic polyneuropathy Status: Acute Current Visit: No Code(s): E11.42 - Type 2 diabetes mellitus with diabetic polyneuropathy (5) Chronic incomplete quadriplegia Status: Acute Current Visit: No Code(s): G82.50 - Quadriplegia, unspecified Type of Wound Date of Service: 09/08/17 Chief Complaint: Ulcer on right heel History of Wound: This is a 67-year-old white male who presents to the wound care center today for evaluation of a right heel ulcer. He has a past medical history as described above. The patient states that on the night of 06/06/2017, his heel protectors came off all night in bed and shortly after he noted an ulceration on his right heel and a purplish discoloration on his left heel. He states that there has been yellow drainage coming from his right heel and that yesterday he started using Granulex and Aquacel silver on the right heel. He denies any pain or foul-smelling discharge, however he does state that he has decreased sensation to his lower extremities due to his history of a spinal cord injury in high school. He currently has a suprapubic catheter as well due to his history of recurrent UTIs and obstructive uropathy. He also notes that his low air loss hospital bed is needing to be repaired so he is unable to use this at this time. The patient does state that he has a history of ulcerations on his right heel in the past where he had to be seen at a wound care center and ended up needing to have skin substitutes applied. He does note that he lives home alone and that he receives home health throughout the week. Patient was then referred to Dr. Gan at his office, who subsequently admitted the patient on Jul 04, for IV antibiotics and evaluation by ID. Infectious disease planned to d/c patient home on doxy 100mg bid, amoxicillin 500mg tid, and flagyl 500mg tid for planned 6 week course. He has since discharge been receiving daily dressing changes consisting of aquacel ag and a dry sterile dressing as well as wearing his PRAFO boots at all times. He otherwise denies any signs of systemic infection and denies any fever, chills, nausea, vomiting, chest pain or pressure, syncope or presyncopal episodes. Progress of Wound: Ulcer appears to be improved today following debridment. No undermining noted again this week. He will have his third purply applied today. He says he has been wearing his PRAFO boots as well. He denies any feeling of nausea, vomiting, fever, or chills currently. - Physical Exam Vital Signs Temp Pulse Resp BP 97 F L 64 18 133/81 H 09/08/17 12:23 09/08/17 12:23 09/08/17 12:23 09/08/17 12:23 General: Alert, Oriented x3, Cooperative, No apparent distress Extremities: Capillary Refill Less than 3 Seconds, No Calf Tenderness - negative more and juarez sign, Diminished Peripheral Pulses Skin: Ulcer/ Wound - Ulcer to right posterior heel noted with measurements described below. The ulcer base is a mixture of granular tissue, slough, fibrin as well as some slight hyperkeratotic tissue. Ulcer appears to be improved in appearance in both size and depth of the majority of the ulcer since last week. There continues to be no undermining today. There is no malodor, no purulence, no surrounding cellulitis, and no increased warmth appreciated at this time. Wound Measurements and Assessment WC - Nurse 1 - General Ulcer Measurement Start: 08/25/17 11:35 Freq: Status: Active Protocol: Activity Type Activity Date Activity User E-Sign Co-Sign Detail Recorded Client Recorded Date Recorded By Document 09/08/17 12:23 [email or web address] [id number] 09/08/17 12:37 RB 09/08/17 12:23 Wound Center Nurse 1 [Ulcer Assessment] #11- RT HEEL -Combined with other wound No -Current Size (cm) - Length 1.5 -Current Size (cm) - Width 1.3 -Current Size (cm) - Depth 0.1 -Total Square Cm 1.95 -Photo Taken No -Tunneling No -Undermining/Tunneling No -Circular Undermining No -Classification - Marcial Grading ( Grade 3 Diabetic Ulcer) -Exudate Amt Small (1-33%) -Exudate Type Serosanguineous -Wound Margin Distinct, Outline Attached -Granulation Amt Small (1-33%) -Granulation Quality [place] -Necrosis Amt Large (67-100%) -Necrotic Tissue Type Adherent Slough -Structure Exposed N/A -Texture (Francia-wound Skin Appearance) Assessed -Moisture (Francia-wound Skin Appearance Dry/Scaly ) -Color (Francia-wound Skin Appearance) Assessed -Temperature (Francia-wound Skin No Abnormality Appearance) (Pt Warm) -Tenderness on Palpation (Francia-wound No Skin Appearance) -Ulcer Cleansing Rinsed/ Irrigated with Saline -Foul Odor after Cleansing No -Anesthetic Used 4% Lidocaine Solution WC - Nurse 2 - General Ulcer CM Notes Start: 08/25/17 11:35 Freq: Status: Active Protocol: Activity Type Activity Date Activity User E-Sign Co-Sign Detail Recorded Client Recorded Date Recorded By Document 09/08/17 12:49 MW [id number] 09/08/17 12:54 MW 09/08/17 12:49 Wound Center Nurse 2 [Procedure/Treatment] -Time 12:49 -Correct Patient Yes -Correct Side, Site, Position Yes -Correct Procedure Yes -Procedure Performed Yes -Type of Procedure Debridement -Clinical Debridement Subcutaneous -Post Debridement Size (cm) - Length 1.0 -Post Debridement Size (cm) - Width 0.8 -Post Debridement Size (cm) - Depth 0.2 -Total Square Cm 0.80 -Wound/Ulcer Outcome Not Healed -Ulcer Cleansing Rinsed/ Irrigated with Saline -Foul Odor after Cleansing No -Bioengineered Tissue Yes -Type of bioengineered Tissue [id number] -Bleeding Controlled with Pressure -Treatment Response Procedure Tolerated Well [See Physician Procedure note for Specifics] Pain Scale: 0-10 Numeric [Pain] -Is Patient Pain Free? Yes Musculoskeletal: Muscle Wasting Neurological: - - Patient is incomplete quadriplegic with only very slight sensation to some parts of his feet/ ankles Psych/Mental Status: Normal Affect, Appropriate Debridement Note Post-Debridement Measurements/Treatment WC - Nurse 2 - General Ulcer CM Notes Start: 08/25/17 11:35 Freq: Status: Active Protocol: Activity Type Activity Date Activity User E-Sign Co-Sign Detail Recorded Client Recorded Date Recorded By Document 08/25/17 12:48 MW [id number] 08/25/17 12:51 MW Document 09/01/17 12:42 MW [id number] 09/01/17 12:50 MW Document 09/08/17 12:49 MW [id number] 09/08/17 12:54 MW 08/25/17 09/01/17 09/08/17 12:48 12:42 12:49 Wound Center Nurse 2 #11- RT HEEL -Time 12:30 12:43 12:49 -Correct Patient Yes Yes Yes -Correct Side, Site, Position Yes Yes Yes -Correct Procedure Yes Yes Yes -Procedure Performed Yes Yes Yes -Type of Procedure Debridement Debridement Debridement -Clinical Debridement Subcutaneous Subcutaneous Subcutaneous -Post Debridement Size (cm) - Length 1.2 1.6 1.0 -Post Debridement Size (cm) - Width 0.9 1.7 0.8 -Post Debridement Size (cm) - Depth 0.2 0.2 0.2 -Total Square Cm 1.08 2.72 0.80 -Wound/Ulcer Outcome Not Healed Not Healed Not Healed -Ulcer Cleansing Rinsed/ Rinsed/ Rinsed/ Irrigated with Irrigated with Irrigated with Saline Saline Saline -Foul Odor after Cleansing No No No -Bioengineered Tissue Yes Yes -Type of bioengineered Tissue [id number] -Expiration Date 03/11/19 03/11/19 -Product Lot Number [id number] -Percent Used 75 80 -Saline Lot Number [id number] -Bleeding Controlled with Pressure Pressure Pressure -Treatment Response Procedure Procedure Procedure Tolerated Well Tolerated Well Tolerated Well Pain Scale: 0-10 Numeric Is Patient Pain Free? Yes Yes Yes Wound debrided: Right posterior heel Laterality: Right Wound Grade/Stage: 2 Type of Debridement: Excisional debridement Anesthesia Used: 4% Lidocaine Solution Depth: in the subcutaneous layer Percentage of wound debrided: 100 Instrument Used: #15 blade Tissue Removed: Adherent slough, fibrin, hyperkeratotic tissue Severity: Fat Layer Exposed Amount of bleeding with debridement: Mild Bleeding Controlled with: Pressure Patient tolerated procedure well Assessment/Plan Assessment: Ulcer to posterior right heel. Plan: Patient was again examined and evaluated in detail today. The ulcer was carefully subcutaneously debrided as noted in the clinical panel. Following debridement, the third application of puraply was applied to the base, followed by wound veil, steri strips, and hydrogel, followed with a padded dry sterile dressing and his PRAFO boots. He is to keep the dressing below the wound veil and steristrips intact for a week. He is ok to change any dressings over the wound veil and steri strips. Patient was again educated on the importance of wearing the offloading PRAFO boots at all times to keep pressure off of his heels. He says he understands. He has home health care to help change dressings as described above. He is to continue antibiotics per infectious disease. He was educated on all signs and symptoms of local and systemic infection and was instructed to go to the ER immediately should he notice any. All questions were answered to the patient's satisfaction. He will follow up in clinic in one week to check on progress, or sooner if needed.
--- NOTE | 2017-09-08 14:37 | PN.PCM_ITS ---
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 (2) Malnutrition Status: Acute Current Visit: No Code(s): E46 - Unspecified protein-calorie malnutrition (3) Delayed wound healing Status: Acute Current Visit: No Code(s): T14.8XXD - Other injury of unspecified body region, subsequent encounter (4) Type 2 diabetes mellitus with diabetic polyneuropathy Status: Acute Current Visit: No Code(s): E11.42 - Type 2 diabetes mellitus with diabetic polyneuropathy (5) Chronic incomplete quadriplegia Status: Acute Current Visit: No Code(s): G82.50 - Quadriplegia, unspecified Type of Wound Date of Service: 09/08/17 Chief Complaint: Ulcer on right heel History of Wound: This is a 67-year-old white male who presents to the wound care center today for evaluation of a right heel ulcer. He has a past medical history as described above. The patient states that on the night of 06/06/2017, his heel protectors came off all night in bed and shortly after he noted an ulceration on his right heel and a purplish discoloration on his left heel. He states that there has been yellow drainage coming from his right heel and that yesterday he started using Granulex and Aquacel silver on the right heel. He denies any pain or foul-smelling discharge, however he does state that he has decreased sensation to his lower extremities due to his history of a spinal cord injury in high school. He currently has a suprapubic catheter as well due to his history of recurrent UTIs and obstructive uropathy. He also notes that his low air loss hospital bed is needing to be repaired so he is unable to use this at this time. The patient does state that he has a history of ulcerations on his right heel in the past where he had to be seen at a wound care center and ended up needing to have skin substitutes applied. He does note that he lives home alone and that he receives home health throughout the week. Patient was then referred to Dr. Gan at his office, who subsequently admitted the patient on Jul 04, for IV antibiotics and evaluation by ID. Infectious disease planned to d/c patient home on doxy 100mg bid, amoxicillin 500mg tid, and flagyl 500mg tid for planned 6 week course. He has since discharge been receiving daily dressing changes consisting of aquacel ag and a dry sterile dressing as well as wearing his PRAFO boots at all times. He otherwise denies any signs of systemic infection and denies any fever, chills, nausea, vomiting, chest pain or pressure, syncope or presyncopal episodes. Progress of Wound: Ulcer appears to be improved today following debridment. No undermining noted again this week. He will have his third purply applied today. He says he has been wearing his PRAFO boots as well. He denies any feeling of nausea, vomiting, fever, or chills currently. - Physical Exam Vital Signs Temp Pulse Resp BP 97 F L 64 18 133/81 H 09/08/17 12:23 09/08/17 12:23 09/08/17 12:23 09/08/17 12:23 General: Alert, Oriented x3, Cooperative, No apparent distress Extremities: Capillary Refill Less than 3 Seconds, No Calf Tenderness - negative more and juarez sign, Diminished Peripheral Pulses Skin: Ulcer/ Wound - Ulcer to right posterior heel noted with measurements described below. The ulcer base is a mixture of granular tissue, slough, fibrin as well as some slight hyperkeratotic tissue. Ulcer appears to be improved in appearance in both size and depth of the majority of the ulcer since last week. There continues to be no undermining today. There is no malodor, no purulence, no surrounding cellulitis, and no increased warmth appreciated at this time. Wound Measurements and Assessment WC - Nurse 1 - General Ulcer Measurement Start: 08/25/17 11:35 Freq: Status: Active Protocol: Activity Type Activity Date Activity User E-Sign Co-Sign Detail Recorded Client Recorded Date Recorded By Document 09/08/17 12:23 [email or web address] [id number] 09/08/17 12:37 RB 09/08/17 12:23 Wound Center Nurse 1 [Ulcer Assessment] #11- RT HEEL -Combined with other wound No -Current Size (cm) - Length 1.5 -Current Size (cm) - Width 1.3 -Current Size (cm) - Depth 0.1 -Total Square Cm 1.95 -Photo Taken No -Tunneling No -Undermining/Tunneling No -Circular Undermining No -Classification - Marcial Grading ( Grade 3 Diabetic Ulcer) -Exudate Amt Small (1-33%) -Exudate Type Serosanguineous -Wound Margin Distinct, Outline Attached -Granulation Amt Small (1-33%) -Granulation Quality [place] -Necrosis Amt Large (67-100%) -Necrotic Tissue Type Adherent Slough -Structure Exposed N/A -Texture (Francia-wound Skin Appearance) Assessed -Moisture (Francia-wound Skin Appearance Dry/Scaly ) -Color (Francia-wound Skin Appearance) Assessed -Temperature (Francia-wound Skin No Abnormality Appearance) (Pt Warm) -Tenderness on Palpation (Francia-wound No Skin Appearance) -Ulcer Cleansing Rinsed/ Irrigated with Saline -Foul Odor after Cleansing No -Anesthetic Used 4% Lidocaine Solution WC - Nurse 2 - General Ulcer CM Notes Start: 08/25/17 11:35 Freq: Status: Active Protocol: Activity Type Activity Date Activity User E-Sign Co-Sign Detail Recorded Client Recorded Date Recorded By Document 09/08/17 12:49 MW [id number] 09/08/17 12:54 MW 09/08/17 12:49 Wound Center Nurse 2 [Procedure/Treatment] -Time 12:49 -Correct Patient Yes -Correct Side, Site, Position Yes -Correct Procedure Yes -Procedure Performed Yes -Type of Procedure Debridement -Clinical Debridement Subcutaneous -Post Debridement Size (cm) - Length 1.0 -Post Debridement Size (cm) - Width 0.8 -Post Debridement Size (cm) - Depth 0.2 -Total Square Cm 0.80 -Wound/Ulcer Outcome Not Healed -Ulcer Cleansing Rinsed/ Irrigated with Saline -Foul Odor after Cleansing No -Bioengineered Tissue Yes -Type of bioengineered Tissue [id number] -Bleeding Controlled with Pressure -Treatment Response Procedure Tolerated Well [See Physician Procedure note for Specifics] Pain Scale: 0-10 Numeric [Pain] -Is Patient Pain Free? Yes Musculoskeletal: Muscle Wasting Neurological: - - Patient is incomplete quadriplegic with only very slight sensation to some parts of his feet/ ankles Psych/Mental Status: Normal Affect, Appropriate Debridement Note Post-Debridement Measurements/Treatment WC - Nurse 2 - General Ulcer CM Notes Start: 08/25/17 11:35 Freq: Status: Active Protocol: Activity Type Activity Date Activity User E-Sign Co-Sign Detail Recorded Client Recorded Date Recorded By Document 08/25/17 12:48 MW [id number] 08/25/17 12:51 MW Document 09/01/17 12:42 MW [id number] 09/01/17 12:50 MW Document 09/08/17 12:49 MW [id number] 09/08/17 12:54 MW 08/25/17 09/01/17 09/08/17 12:48 12:42 12:49 Wound Center Nurse 2 #11- RT HEEL -Time 12:30 12:43 12:49 -Correct Patient Yes Yes Yes -Correct Side, Site, Position Yes Yes Yes -Correct Procedure Yes Yes Yes -Procedure Performed Yes Yes Yes -Type of Procedure Debridement Debridement Debridement -Clinical Debridement Subcutaneous Subcutaneous Subcutaneous -Post Debridement Size (cm) - Length 1.2 1.6 1.0 -Post Debridement Size (cm) - Width 0.9 1.7 0.8 -Post Debridement Size (cm) - Depth 0.2 0.2 0.2 -Total Square Cm 1.08 2.72 0.80 -Wound/Ulcer Outcome Not Healed Not Healed Not Healed -Ulcer Cleansing Rinsed/ Rinsed/ Rinsed/ Irrigated with Irrigated with Irrigated with Saline Saline Saline -Foul Odor after Cleansing No No No -Bioengineered Tissue Yes Yes -Type of bioengineered Tissue [id number] -Expiration Date 03/11/19 03/11/19 -Product Lot Number [id number] -Percent Used 75 80 -Saline Lot Number [id number] -Bleeding Controlled with Pressure Pressure Pressure -Treatment Response Procedure Procedure Procedure Tolerated Well Tolerated Well Tolerated Well Pain Scale: 0-10 Numeric Is Patient Pain Free? Yes Yes Yes Wound debrided: Right posterior heel Laterality: Right Wound Grade/Stage: 2 Type of Debridement: Excisional debridement Anesthesia Used: 4% Lidocaine Solution Depth: in the subcutaneous layer Percentage of wound debrided: 100 Instrument Used: #15 blade Tissue Removed: Adherent slough, fibrin, hyperkeratotic tissue Severity: Fat Layer Exposed Amount of bleeding with debridement: Mild Bleeding Controlled with: Pressure Patient tolerated procedure well Assessment/Plan Assessment: Ulcer to posterior right heel. Plan: Patient was again examined and evaluated in detail today. The ulcer was carefully subcutaneously debrided as noted in the clinical panel. Following debridement, the third application of puraply was applied to the base, followed by wound veil, steri strips, and hydrogel, followed with a padded dry sterile dressing and his PRAFO boots. He is to keep the dressing below the wound veil and steristrips intact for a week. He is ok to change any dressings over the wound veil and steri strips. Patient was again educated on the importance of wearing the offloading PRAFO boots at all times to keep pressure off of his heels. He says he understands. He has home health care to help change dressings as described above. He is to continue antibiotics per infectious disease. He was educated on all signs and symptoms of local and systemic infection and was instructed to go to the ER immediately should he notice any. All questions were answered to the patient's satisfaction. He will follow up in clinic in one week to check on progress, or sooner if needed.
[2017-09-15 11:51] VITALS: BMI 26.6
--- NOTE | 2017-09-15 14:43 | PCM.WC.PN ---
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 (2) Malnutrition Status: Acute Current Visit: No Code(s): E46 - Unspecified protein-calorie malnutrition (3) Delayed wound healing Status: Acute Current Visit: No Code(s): T14.8XXD - Other injury of unspecified body region, subsequent encounter (4) Type 2 diabetes mellitus with diabetic polyneuropathy Status: Acute Current Visit: No Code(s): E11.42 - Type 2 diabetes mellitus with diabetic polyneuropathy (5) Chronic incomplete quadriplegia Status: Acute Current Visit: No Code(s): G82.50 - Quadriplegia, unspecified Type of Wound Date of Service: 09/15/17 Chief Complaint: Ulcer on right heel History of Wound: This is a 67-year-old white male who presents to the wound care center today for evaluation of a right heel ulcer. He has a past medical history as described above. The patient states that on the night of 06/06/2017, his heel protectors came off all night in bed and shortly after he noted an ulceration on his right heel and a purplish discoloration on his left heel. He states that there has been yellow drainage coming from his right heel and that yesterday he started using Granulex and Aquacel silver on the right heel. He denies any pain or foul-smelling discharge, however he does state that he has decreased sensation to his lower extremities due to his history of a spinal cord injury in high school. He currently has a suprapubic catheter as well due to his history of recurrent UTIs and obstructive uropathy. He also notes that his low air loss hospital bed is needing to be repaired so he is unable to use this at this time. The patient does state that he has a history of ulcerations on his right heel in the past where he had to be seen at a wound care center and ended up needing to have skin substitutes applied. He does note that he lives home alone and that he receives home health throughout the week. Patient was then referred to Dr. Gan at his office, who subsequently admitted the patient on Jul 04, for IV antibiotics and evaluation by ID. Infectious disease planned to d/c patient home on doxy 100mg bid, amoxicillin 500mg tid, and flagyl 500mg tid for planned 6 week course. He has since discharge been receiving daily dressing changes consisting of aquacel ag and a dry sterile dressing as well as wearing his PRAFO boots at all times. He otherwise denies any signs of systemic infection and denies any fever, chills, nausea, vomiting, chest pain or pressure, syncope or presyncopal episodes. Progress of Wound: Ulcer appears to be improved again today following debridment. No undermining noted again this week. He will have his fourth purply applied today. He says he has been wearing his PRAFO boots as well. He denies any feeling of nausea, vomiting, fever, or chills currently. - Physical Exam Vital Signs Temp Pulse Resp BP 97 F L 64 18 133/81 H 09/08/17 12:23 09/08/17 12:23 09/08/17 12:23 09/08/17 12:23 General: Alert, Oriented x3, Cooperative, No apparent distress Extremities: Capillary Refill Less than 3 Seconds, No Calf Tenderness - Negative Sarah Beth and Pretty sign, Diminished Peripheral Pulses Skin: Ulcer/ Wound - Ulcer to right posterior heel with measurements noted below. The ulcer base is a mixture of granular tissue, adherent slough, fibrin as well as some hyperkeratotic tissue. Ulcer appears to be much improved even since last week. There continues to be no undermining today as well as no malodor, no purulence, no surrounding cellulitis, and no increase in warmth at this time. Wound Measurements and Assessment WC - Nurse 1 - General Ulcer Measurement Start: 08/25/17 11:35 Freq: Status: Active Protocol: Activity Type Activity Date Activity User E-Sign Co-Sign Detail Recorded Client Recorded Date Recorded By Document 09/15/17 11:51 [facility] [id number] 09/15/17 12:04 [facility] 09/15/17 11:51 Wound Center Nurse 1 [Ulcer Assessment] #11- RT HEEL -Combined with other wound No -Current Size (cm) - Length 0.1 -Current Size (cm) - Width 0.1 -Current Size (cm) - Depth 0.1 -Total Square Cm 0.01 -Epithelialization Large 67-100% -Structure Exposed N/A -Texture (Francia-wound Skin Appearance) Scarring -Moisture (Francia-wound Skin Appearance Dry/Scaly ) -Color (Francia-wound Skin Appearance) No Abnormality Assessed -Temperature (Francia-wound Skin No Abnormality Appearance) (Pt Warm) -Tenderness on Palpation (Francia-wound No Skin Appearance) -Ulcer Cleansing Rinsed/ Irrigated with Saline -Foul Odor after Cleansing No -Anesthetic Used 4% Lidocaine Solution - Nurse 2 - General Ulcer CM Notes Start: 08/25/17 11:35 Freq: Status: Active Protocol: Activity Type Activity Date Activity User E-Sign Co-Sign Detail Recorded Client Recorded Date Recorded By Document 09/15/17 12:42 MW [id number] 09/15/17 12:44 MW 09/15/17 12:42 Wound Center Nurse 2 [Procedure/Treatment] -Time 12:42 -Correct Patient Yes -Correct Side, Site, Position Yes -Correct Procedure Yes -Procedure Performed Yes -Type of Procedure Debridement -Clinical Debridement Selective -Post Debridement Size (cm) - Length 0.4 -Post Debridement Size (cm) - Width 0.3 -Post Debridement Size (cm) - Depth 0.1 -Total Square Cm 0.12 -Wound/Ulcer Outcome Not Healed -Ulcer Cleansing Rinsed/ Irrigated with Saline -Foul Odor after Cleansing No -Bioengineered Tissue Yes -Type of bioengineered Tissue [id number] -Expiration Date 10/17/18 -Product Lot Number [id number] -Percent Used 50 -Saline Lot Number [id number] -Bleeding Controlled with Pressure -Treatment Response Procedure Tolerated Well [See Physician Procedure note for Specifics] Pain Scale: 0-10 Numeric [Pain] -Is Patient Pain Free? Yes Musculoskeletal: Muscle Wasting Neurological: - - Patient is incomplete quadriplegic with only very slight sensation to some parts of his feet/ankles Psych/Mental Status: Normal Affect, Appropriate Debridement Note Post-Debridement Measurements/Treatment - Nurse 2 - General Ulcer CM Notes Start: 08/25/17 11:35 Freq: Status: Active Protocol: Activity Type Activity Date Activity User E-Sign Co-Sign Detail Recorded Client Recorded Date Recorded By Document 08/25/17 12:48 MW [id number] 08/25/17 12:51 MW Document 09/01/17 12:42 MW [id number] 09/01/17 12:50 MW Document 09/08/17 12:49 MW [id number] 09/08/17 12:54 MW Document 09/15/17 12:42 MW [id number] 09/15/17 12:44 MW 08/25/17 09/01/17 09/08/17 12:48 12:42 12:49 Wound Center Nurse 2 #11- RT HEEL -Time 12:30 12:43 12:49 -Correct Patient Yes Yes Yes -Correct Side, Site, Position Yes Yes Yes -Correct Procedure Yes Yes Yes -Procedure Performed Yes Yes Yes -Type of Procedure Debridement Debridement Debridement -Clinical Debridement Subcutaneous Subcutaneous Subcutaneous -Post Debridement Size (cm) - Length 1.2 1.6 1.0 -Post Debridement Size (cm) - Width 0.9 1.7 0.8 -Post Debridement Size (cm) - Depth 0.2 0.2 0.2 -Total Square Cm 1.08 2.72 0.80 -Wound/Ulcer Outcome Not Healed Not Healed Not Healed -Ulcer Cleansing Rinsed/ Rinsed/ Rinsed/ Irrigated with Irrigated with Irrigated with Saline Saline Saline -Foul Odor after Cleansing No No No -Bioengineered Tissue Yes Yes -Type of bioengineered Tissue [id number] -Expiration Date 03/11/19 03/11/19 -Product Lot Number [id number] -Percent Used 75 80 -Saline Lot Number [id number] -Bleeding Controlled with Pressure Pressure Pressure -Treatment Response Procedure Procedure Procedure Tolerated Well Tolerated Well Tolerated Well Pain Scale: 0-10 Numeric Is Patient Pain Free? Yes Yes Yes 09/15/17 12:42 Wound Center Nurse 2 #11- RT HEEL -Time 12:42 -Correct Patient Yes -Correct Side, Site, Position Yes -Correct Procedure Yes -Procedure Performed Yes -Type of Procedure Debridement -Clinical Debridement Selective -Post Debridement Size (cm) - Length 0.4 -Post Debridement Size (cm) - Width 0.3 -Post Debridement Size (cm) - Depth 0.1 -Total Square Cm 0.12 -Wound/Ulcer Outcome Not Healed -Ulcer Cleansing Rinsed/ Irrigated with Saline -Foul Odor after Cleansing No -Bioengineered Tissue Yes -Type of bioengineered Tissue [id number] -Expiration Date 10/17/18 -Product Lot Number [id number] -Percent Used 50 -Saline Lot Number [id number] -Bleeding Controlled with Pressure -Treatment Response Procedure Tolerated Well Pain Scale: 0-10 Numeric Is Patient Pain Free? Yes Wound debrided: Right posterior heel Laterality: Right Wound Grade/Stage: 2 Type of Debridement: Selective debridement Anesthesia Used: 4% Lidocaine Solution Depth: in the subcutaneous layer Percentage of wound debrided: 100 Instrument Used: #15 blade Tissue Removed: Adherent slough, fibrin, hyperkeratotic tissue Severity: Fat Layer Exposed Amount of bleeding with debridement: Mild Bleeding Controlled with: Pressure Patient tolerated procedure well Assessment/Plan Assessment: Ulcer to posterior right heel. Plan: Patient was again examined and evaluated in detail today. The ulcer was carefully selectively debrided as noted in the clinical panel. Following debridement, the fourth application of puraply was applied to the base, followed by wound veil, steri strips, and hydrogel, followed with a padded dry sterile dressing and his PRAFO boots. He is to keep the dressing below the wound veil and steristrips intact for a week. He is ok to change any dressings over the wound veil and steri strips. Patient was again educated on the importance of wearing the offloading PRAFO boots at all times to keep pressure off of his heels. He says he understands. He has home health care to help change dressings as described above. He is to continue antibiotics per infectious disease. He was educated on all signs and symptoms of local and systemic infection and was instructed to go to the ER immediately should he notice any. All questions were answered to the patient's satisfaction. He will follow up in clinic in one week to check on progress, or sooner if needed.
--- NOTE | 2017-09-15 14:47 | PN.PCM_ITS ---
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 (2) Malnutrition Status: Acute Current Visit: No Code(s): E46 - Unspecified protein-calorie malnutrition (3) Delayed wound healing Status: Acute Current Visit: No Code(s): T14.8XXD - Other injury of unspecified body region, subsequent encounter (4) Type 2 diabetes mellitus with diabetic polyneuropathy Status: Acute Current Visit: No Code(s): E11.42 - Type 2 diabetes mellitus with diabetic polyneuropathy (5) Chronic incomplete quadriplegia Status: Acute Current Visit: No Code(s): G82.50 - Quadriplegia, unspecified Type of Wound Date of Service: 09/15/17 Chief Complaint: Ulcer on right heel History of Wound: This is a 67-year-old white male who presents to the wound care center today for evaluation of a right heel ulcer. He has a past medical history as described above. The patient states that on the night of 06/06/2017, his heel protectors came off all night in bed and shortly after he noted an ulceration on his right heel and a purplish discoloration on his left heel. He states that there has been yellow drainage coming from his right heel and that yesterday he started using Granulex and Aquacel silver on the right heel. He denies any pain or foul-smelling discharge, however he does state that he has decreased sensation to his lower extremities due to his history of a spinal cord injury in high school. He currently has a suprapubic catheter as well due to his history of recurrent UTIs and obstructive uropathy. He also notes that his low air loss hospital bed is needing to be repaired so he is unable to use this at this time. The patient does state that he has a history of ulcerations on his right heel in the past where he had to be seen at a wound care center and ended up needing to have skin substitutes applied. He does note that he lives home alone and that he receives home health throughout the week. Patient was then referred to Dr. Gan at his office, who subsequently admitted the patient on Jul 04, for IV antibiotics and evaluation by ID. Infectious disease planned to d/c patient home on doxy 100mg bid, amoxicillin 500mg tid, and flagyl 500mg tid for planned 6 week course. He has since discharge been receiving daily dressing changes consisting of aquacel ag and a dry sterile dressing as well as wearing his PRAFO boots at all times. He otherwise denies any signs of systemic infection and denies any fever, chills, nausea, vomiting, chest pain or pressure, syncope or presyncopal episodes. Progress of Wound: Ulcer appears to be improved again today following debridment. No undermining noted again this week. He will have his fourth purply applied today. He says he has been wearing his PRAFO boots as well. He denies any feeling of nausea, vomiting, fever, or chills currently. - Physical Exam Vital Signs Temp Pulse Resp BP 97 F L 64 18 133/81 H 09/08/17 12:23 09/08/17 12:23 09/08/17 12:23 09/08/17 12:23 General: Alert, Oriented x3, Cooperative, No apparent distress Extremities: Capillary Refill Less than 3 Seconds, No Calf Tenderness - Negative Sarah Beth and Pretty sign, Diminished Peripheral Pulses Skin: Ulcer/ Wound - Ulcer to right posterior heel with measurements noted below. The ulcer base is a mixture of granular tissue, adherent slough, fibrin as well as some hyperkeratotic tissue. Ulcer appears to be much improved even since last week. There continues to be no undermining today as well as no malodor, no purulence, no surrounding cellulitis, and no increase in warmth at this time. Wound Measurements and Assessment WC - Nurse 1 - General Ulcer Measurement Start: 08/25/17 11:35 Freq: Status: Active Protocol: Activity Type Activity Date Activity User E-Sign Co-Sign Detail Recorded Client Recorded Date Recorded By Document 09/15/17 11:51 [facility] [id number] 09/15/17 12:04 [facility] 09/15/17 11:51 Wound Center Nurse 1 [Ulcer Assessment] #11- RT HEEL -Combined with other wound No -Current Size (cm) - Length 0.1 -Current Size (cm) - Width 0.1 -Current Size (cm) - Depth 0.1 -Total Square Cm 0.01 -Epithelialization Large 67-100% -Structure Exposed N/A -Texture (Francia-wound Skin Appearance) Scarring -Moisture (Francia-wound Skin Appearance Dry/Scaly ) -Color (Francia-wound Skin Appearance) No Abnormality Assessed -Temperature (Francia-wound Skin No Abnormality Appearance) (Pt Warm) -Tenderness on Palpation (Francia-wound No Skin Appearance) -Ulcer Cleansing Rinsed/ Irrigated with Saline -Foul Odor after Cleansing No -Anesthetic Used 4% Lidocaine Solution - Nurse 2 - General Ulcer CM Notes Start: 08/25/17 11:35 Freq: Status: Active Protocol: Activity Type Activity Date Activity User E-Sign Co-Sign Detail Recorded Client Recorded Date Recorded By Document 09/15/17 12:42 MW [id number] 09/15/17 12:44 MW 09/15/17 12:42 Wound Center Nurse 2 [Procedure/Treatment] -Time 12:42 -Correct Patient Yes -Correct Side, Site, Position Yes -Correct Procedure Yes -Procedure Performed Yes -Type of Procedure Debridement -Clinical Debridement Selective -Post Debridement Size (cm) - Length 0.4 -Post Debridement Size (cm) - Width 0.3 -Post Debridement Size (cm) - Depth 0.1 -Total Square Cm 0.12 -Wound/Ulcer Outcome Not Healed -Ulcer Cleansing Rinsed/ Irrigated with Saline -Foul Odor after Cleansing No -Bioengineered Tissue Yes -Type of bioengineered Tissue [id number] -Expiration Date 10/17/18 -Product Lot Number [id number] -Percent Used 50 -Saline Lot Number [id number] -Bleeding Controlled with Pressure -Treatment Response Procedure Tolerated Well [See Physician Procedure note for Specifics] Pain Scale: 0-10 Numeric [Pain] -Is Patient Pain Free? Yes Musculoskeletal: Muscle Wasting Neurological: - - Patient is incomplete quadriplegic with only very slight sensation to some parts of his feet/ankles Psych/Mental Status: Normal Affect, Appropriate Debridement Note Post-Debridement Measurements/Treatment - Nurse 2 - General Ulcer CM Notes Start: 08/25/17 11:35 Freq: Status: Active Protocol: Activity Type Activity Date Activity User E-Sign Co-Sign Detail Recorded Client Recorded Date Recorded By Document 08/25/17 12:48 MW [id number] 08/25/17 12:51 MW Document 09/01/17 12:42 MW [id number] 09/01/17 12:50 MW Document 09/08/17 12:49 MW [id number] 09/08/17 12:54 MW Document 09/15/17 12:42 MW [id number] 09/15/17 12:44 MW 08/25/17 09/01/17 09/08/17 12:48 12:42 12:49 Wound Center Nurse 2 #11- RT HEEL -Time 12:30 12:43 12:49 -Correct Patient Yes Yes Yes -Correct Side, Site, Position Yes Yes Yes -Correct Procedure Yes Yes Yes -Procedure Performed Yes Yes Yes -Type of Procedure Debridement Debridement Debridement -Clinical Debridement Subcutaneous Subcutaneous Subcutaneous -Post Debridement Size (cm) - Length 1.2 1.6 1.0 -Post Debridement Size (cm) - Width 0.9 1.7 0.8 -Post Debridement Size (cm) - Depth 0.2 0.2 0.2 -Total Square Cm 1.08 2.72 0.80 -Wound/Ulcer Outcome Not Healed Not Healed Not Healed -Ulcer Cleansing Rinsed/ Rinsed/ Rinsed/ Irrigated with Irrigated with Irrigated with Saline Saline Saline -Foul Odor after Cleansing No No No -Bioengineered Tissue Yes Yes -Type of bioengineered Tissue [id number] -Expiration Date 03/11/19 03/11/19 -Product Lot Number [id number] -Percent Used 75 80 -Saline Lot Number [id number] -Bleeding Controlled with Pressure Pressure Pressure -Treatment Response Procedure Procedure Procedure Tolerated Well Tolerated Well Tolerated Well Pain Scale: 0-10 Numeric Is Patient Pain Free? Yes Yes Yes 09/15/17 12:42 Wound Center Nurse 2 #11- RT HEEL -Time 12:42 -Correct Patient Yes -Correct Side, Site, Position Yes -Correct Procedure Yes -Procedure Performed Yes -Type of Procedure Debridement -Clinical Debridement Selective -Post Debridement Size (cm) - Length 0.4 -Post Debridement Size (cm) - Width 0.3 -Post Debridement Size (cm) - Depth 0.1 -Total Square Cm 0.12 -Wound/Ulcer Outcome Not Healed -Ulcer Cleansing Rinsed/ Irrigated with Saline -Foul Odor after Cleansing No -Bioengineered Tissue Yes -Type of bioengineered Tissue [id number] -Expiration Date 10/17/18 -Product Lot Number [id number] -Percent Used 50 -Saline Lot Number [id number] -Bleeding Controlled with Pressure -Treatment Response Procedure Tolerated Well Pain Scale: 0-10 Numeric Is Patient Pain Free? Yes Wound debrided: Right posterior heel Laterality: Right Wound Grade/Stage: 2 Type of Debridement: Selective debridement Anesthesia Used: 4% Lidocaine Solution Depth: in the subcutaneous layer Percentage of wound debrided: 100 Instrument Used: #15 blade Tissue Removed: Adherent slough, fibrin, hyperkeratotic tissue Severity: Fat Layer Exposed Amount of bleeding with debridement: Mild Bleeding Controlled with: Pressure Patient tolerated procedure well Assessment/Plan Assessment: Ulcer to posterior right heel. Plan: Patient was again examined and evaluated in detail today. The ulcer was carefully selectively debrided as noted in the clinical panel. Following debridement, the fourth application of puraply was applied to the base, followed by wound veil, steri strips, and hydrogel, followed with a padded dry sterile dressing and his PRAFO boots. He is to keep the dressing below the wound veil and steristrips intact for a week. He is ok to change any dressings over the wound veil and steri strips. Patient was again educated on the importance of wearing the offloading PRAFO boots at all times to keep pressure off of his heels. He says he understands. He has home health care to help change dressings as described above. He is to continue antibiotics per infectious disease. He was educated on all signs and symptoms of local and systemic infection and was instructed to go to the ER immediately should he notice any. All questions were answered to the patient's satisfaction. He will follow up in clinic in one week to check on progress, or sooner if needed.
== END 2017-09-19 23:59 ==
LOC: WC 11:15
PROVIDERS: Visit Provider Podiatrist
DX: E11.621 Type 2 diabetes mellitus with foot ulcer (principal); E11.42 Type 2 diabetes mellitus with diabetic polyneuropathy; G82.50 Quadriplegia, unspecified; Z87.440 Personal history of urinary (tract) infections; L97.412 Non-pressure chronic ulcer of right heel and midfoot with fat layer exposed
CPT/HCPCS: 15275; Q4172

== ENCOUNTER → 2017-09-22 13:11 | Outpatient (CLI) | payer MEDICARE, OTHER, SELFPAY | PROVIDERS: Visit Provider Surgery | DX: Z45.2 Encounter for adjustment and management of vascular access device (principal); E11.621 Type 2 diabetes mellitus with foot ulcer; L97.416 Non-pressure chronic ulcer of right heel and midfoot with bone involvement without evidence of necrosis; E11.42 Type 2 diabetes mellitus with diabetic polyneuropathy; G82.50 Quadriplegia, unspecified; N13.9 Obstructive and reflux uropathy, unspecified; Z87.440 Personal history of urinary (tract) infections | CPT/HCPCS: 96523; 99212; A4216; G0463 ==

== ENCOUNTER 2017-10-20 12:00 | Outpatient (RCR) | payer MEDICARE, OTHER, SELFPAY ==
[2017-09-20 00:39] VITALS: BP 118/69; PULSE 64; RESP 18; TEMP 36.1; BMI 26.6
[2017-09-22 12:07] VITALS: BP 104/73; PULSE 80; RESP 18; TEMP 36.1; BMI 26.6
--- NOTE | 2017-09-22 14:52 | PN.PCM_ITS ---
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 (2) Malnutrition Status: Acute Current Visit: No Code(s): E46 - Unspecified protein-calorie malnutrition (3) Delayed wound healing Status: Acute Current Visit: No Code(s): T14.8XXD - Other injury of unspecified body region, subsequent encounter (4) Type 2 diabetes mellitus with diabetic polyneuropathy Status: Acute Current Visit: No Code(s): E11.42 - Type 2 diabetes mellitus with diabetic polyneuropathy (5) Chronic incomplete quadriplegia Status: Acute Current Visit: No Code(s): G82.50 - Quadriplegia, unspecified Type of Wound Date of Service: 09/22/17 Chief Complaint: Ulcer on right heel History of Wound: This is a 67-year-old white male who presents to the wound care center today for evaluation of a right heel ulcer. He has a past medical history as described above. The patient states that on the night of 06/06/2017, his heel protectors came off all night in bed and shortly after he noted an ulceration on his right heel and a purplish discoloration on his left heel. He states that there has been yellow drainage coming from his right heel and that yesterday he started using Granulex and Aquacel silver on the right heel. He denies any pain or foul-smelling discharge, however he does state that he has decreased sensation to his lower extremities due to his history of a spinal cord injury in high school. He currently has a suprapubic catheter as well due to his history of recurrent UTIs and obstructive uropathy. He also notes that his low air loss hospital bed is needing to be repaired so he is unable to use this at this time. The patient does state that he has a history of ulcerations on his right heel in the past where he had to be seen at a wound care center and ended up needing to have skin substitutes applied. He does note that he lives home alone and that he receives home health throughout the week. Patient was then referred to Dr. Gan at his office, who subsequently admitted the patient on Jul 04, for IV antibiotics and evaluation by ID. Infectious disease planned to d/c patient home on doxy 100mg bid, amoxicillin 500mg tid, and flagyl 500mg tid for planned 6 week course. He has since discharge been receiving daily dressing changes consisting of aquacel ag and a dry sterile dressing as well as wearing his PRAFO boots at all times. He otherwise denies any signs of systemic infection and denies any fever, chills, nausea, vomiting, chest pain or pressure, syncope or presyncopal episodes. Progress of Wound: Ulcer appears to be healed at this time. He had a puraply applied last week. He says he has been wearing his PRAFO boots as well. He denies any feeling of nausea, vomiting, fever, or chills currently. - Physical Exam Vital Signs Temp Pulse Resp BP 96.9 F L 80 18 104/73 09/22/17 12:07 09/22/17 12:07 09/22/17 12:07 09/22/17 12:07 General: Alert, Oriented x3, Cooperative, No apparent distress Extremities: Capillary Refill Less than 3 Seconds, No Calf Tenderness, Diminished Peripheral Pulses - Negative Sarah Beth and Pretty sign Skin: Ulcer/ Wound - Ulcer to right posterior heel appears to be healed at this visit. There is no extending cellulitis, increase in warmth, or any other signs of local infection appreciated at this time. Wound Measurements and Assessment WC - Nurse 1 - General Ulcer Measurement Start: 09/22/17 12:07 Freq: Status: Active Protocol: Activity Type Activity Date Activity User E-Sign Co-Sign Detail Recorded Client Recorded Date Recorded By Document 09/22/17 12:07 [id number] 09/22/17 12:09 09/22/17 12:07 Wound Center Nurse 1 [Ulcer Assessment] #11- RT HEEL -Combined with other wound No -Current Size (cm) - Length 0.1 -Current Size (cm) - Width 0.1 -Current Size (cm) - Depth 0.1 -Total Square Cm 0.01 -Date of Last Picture (Recall this 09/22/17 field) -Photo Taken Yes -Epithelialization Large 67-100% -Tunneling No -Undermining/Tunneling No -Circular Undermining No -Classification - Thickness Full Thickness without Exposed Support Structure -Exudate Amt None Present (0 %) -Wound Margin Distinct, Outline Attached -Granulation Amt Large (67-100%) -Granulation Quality [place] -Slough/Fibrin No -Necrosis Amt None Present (0 %) -Structure Exposed None/Limited to Skin Breakdown -Texture (Francia-wound Skin Appearance) Callus -Moisture (Francia-wound Skin Appearance Dry/Scaly ) -Color (Francia-wound Skin Appearance) No Abnormality -Temperature (Francia-wound Skin No Abnormality Appearance) (Pt Warm) -Tenderness on Palpation (Francia-wound No Skin Appearance) -Ulcer Cleansing Rinsed/ Irrigated with Saline -Foul Odor after Cleansing No -Anesthetic Used 5% Lidocaine Gel [Edema Assessment] -Lower Limb Edema Present No WC - Nurse 2 - General Ulcer CM Notes Start: 09/22/17 12:07 Freq: Status: Active Protocol: Activity Type Activity Date Activity User E-Sign Co-Sign Detail Recorded Client Recorded Date Recorded By Document 09/22/17 12:36 MW [id number] 09/22/17 12:39 MW 09/22/17 12:36 Wound Center Nurse 2 [Procedure/Treatment] #11- RT HEEL -Time 12:36 -Correct Patient Yes -Correct Side, Site, Position Yes -Correct Procedure Yes -Procedure Performed No -Post Debridement Size (cm) - Length 0 -Post Debridement Size (cm) - Width 0 -Post Debridement Size (cm) - Depth 0 -Total Square Cm 0 -Wound/Ulcer Outcome Healed- Epithelialized -Ulcer Cleansing Not Cleansed -Foul Odor after Cleansing No -Bioengineered Tissue No -Bleeding Controlled with NA -Treatment Response Procedure Tolerated Well [See Physician Procedure note for Specifics] Pain Scale: 0-10 Numeric [Pain] -Is Patient Pain Free? Yes Musculoskeletal: Muscle Wasting Neurological: - - Patient is incomplete quadriplegic with only very slight sensation to some parts of his feet/ankles Psych/Mental Status: Normal Affect, Appropriate Debridement Note Post-Debridement Measurements/Treatment WC - Nurse 2 - General Ulcer CM Notes Start: 09/22/17 12:07 Freq: Status: Active Protocol: Activity Type Activity Date Activity User E-Sign Co-Sign Detail Recorded Client Recorded Date Recorded By Document 09/22/17 12:36 MW [id number] 09/22/17 12:39 MW 09/22/17 12:36 Wound Center Nurse 2 #11- RT HEEL -Time 12:36 -Correct Patient Yes -Correct Side, Site, Position Yes -Correct Procedure Yes -Procedure Performed No -Post Debridement Size (cm) - Length 0 -Post Debridement Size (cm) - Width 0 -Post Debridement Size (cm) - Depth 0 -Total Square Cm 0 -Wound/Ulcer Outcome Healed- Epithelialized -Ulcer Cleansing Not Cleansed -Foul Odor after Cleansing No -Bioengineered Tissue No -Bleeding Controlled with NA -Treatment Response Procedure Tolerated Well Pain Scale: 0-10 Numeric Is Patient Pain Free? Yes No debridement was completed today Assessment/Plan Assessment: Ulcer to posterior right heel. Plan: Patient was again examined and evaluated in detail today. The ulcer appear to be healed at this time without any signs of local infection appreciated. Patient was again educated on the importance of wearing the offloading PRAFO boots at all times to keep pressure off of his heels to prevent recurrence. He says he understands. He is to continue antibiotics per infectious disease. He was educated on all signs and symptoms of local and systemic infection and was instructed to go to the ER immediately should he notice any. All questions were answered to the patient's satisfaction. He will be discharged from the wound healing center at this time and will follow up on an as needed basis.
[2017-10-13 12:05] VITALS: BP 136/82; PULSE 73; RESP 20; TEMP 36.9; BMI 26.6
--- NOTE | 2017-10-13 14:51 | PCM.WC.PN ---
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 (2) Malnutrition Status: Acute Current Visit: No Code(s): E46 - Unspecified protein-calorie malnutrition (3) Delayed wound healing Status: Acute Current Visit: No Code(s): T14.8XXD - Other injury of unspecified body region, subsequent encounter (4) Type 2 diabetes mellitus with diabetic polyneuropathy Status: Acute Current Visit: No Code(s): E11.42 - Type 2 diabetes mellitus with diabetic polyneuropathy (5) Chronic incomplete quadriplegia Status: Acute Current Visit: No Code(s): G82.50 - Quadriplegia, unspecified Type of Wound Date of Service: 10/13/17 Chief Complaint: Ulcer on right heel History of Wound: This is a 67-year-old white male who presents to the wound care center today for evaluation of a right heel ulcer. He has a past medical history as described above. The patient states that on the night of 06/06/2017, his heel protectors came off all night in bed and shortly after he noted an ulceration on his right heel and a purplish discoloration on his left heel. He states that there has been yellow drainage coming from his right heel and that yesterday he started using Granulex and Aquacel silver on the right heel. He denies any pain or foul-smelling discharge, however he does state that he has decreased sensation to his lower extremities due to his history of a spinal cord injury in high school. He currently has a suprapubic catheter as well due to his history of recurrent UTIs and obstructive uropathy. He also notes that his low air loss hospital bed is needing to be repaired so he is unable to use this at this time. The patient does state that he has a history of ulcerations on his right heel in the past where he had to be seen at a wound care center and ended up needing to have skin substitutes applied. He does note that he lives home alone and that he receives home health throughout the week. Patient was then referred to Dr. Gan at his office, who subsequently admitted the patient on Jul 04, for IV antibiotics and evaluation by ID. Infectious disease planned to d/c patient home on doxy 100mg bid, amoxicillin 500mg tid, and flagyl 500mg tid for planned 6 week course. He has since discharge been receiving daily dressing changes consisting of aquacel ag and a dry sterile dressing as well as wearing his PRAFO boots at all times. He otherwise denies any signs of systemic infection and denies any fever, chills, nausea, vomiting, chest pain or pressure, syncope or presyncopal episodes. Progress of Wound: Patient returns to wound healing center this week. His right heel ulcer has reopened. Patient also complains of new ulcer to his right posterior calf. He says he noticed an area darkening on his calf a couple of weeks ago. He says he is not sure if the home nurses tightened his PRAFO boot straps too much or if the PRAFO boots placed excess pressure over the area. He has been trying to keep the areas clean and dressed with aqucel ag that he had at home with the help of home nursing. He denies any purulence to the area. He denies any feeling of nausea, vomiting, fever, or chills currently. - Physical Exam Vital Signs Temp Pulse Resp BP 98.4 F 73 20 H 136/82 H 10/13/17 12:05 10/13/17 12:05 10/13/17 12:05 10/13/17 12:05 General: Alert, Oriented x3, Cooperative, No apparent distress Extremities: Capillary Refill Less than 3 Seconds, No Calf Tenderness - Negative Sarah Beth and Pretty sign, Diminished Peripheral Pulses Skin: Ulcer/ Wound - Ulcer to the right posterior heel with fat layer exposed. Measurements are noted below ulcer base appears to be a mixture of granular tissue, adherent slough, fibrin as well as some surrounding hyperkeratotic tissue. There is no malodor, no purulence, no extending cellulitis, no significant increase in warmth, no probing to bone, no tracking and no undermining appreciated to this area. Ulcer also appreciated to right posterior calf with measurements also noted below. This ulcer is noted to have a base consisting of granular tissue, adherent slough, fibrin, some necrotic eschar, as well as hyperkeratotic tissue. Currently there is no appreciated probing, tracking, or undermining. There is no purulence, no malodor, or no significant extending cellulitis to the area. Wound Measurements and Assessment WC - Nurse 1 - General Ulcer Measurement Start: 09/22/17 12:07 Freq: Status: Active Protocol: Activity Type Activity Date Activity User E-Sign Co-Sign Detail Recorded Client Recorded Date Recorded By Document 10/13/17 12:05 DL [id number] 10/13/17 12:30 DL 10/13/17 12:05 Wound Center Nurse 1 [Ulcer Assessment] #13 L Post LE -Current Size (cm) - Length 1.6 -Current Size (cm) - Width 0.8 -Current Size (cm) - Depth 0.1 -Total Square Cm 1.28 -Photo Taken Yes -Classification - Thickness Unclassifiable (Eschar Covered ) -Necrosis Amt None Present (0 %) -Structure Exposed Fat Layer Exposed -Texture (Francia-wound Skin Appearance) No Abnormality -Moisture (Francia-wound Skin Appearance No Abnormality ) -Color (Francia-wound Skin Appearance) No Abnormality -Temperature (Francia-wound Skin No Abnormality Appearance) (Pt Warm) -Ulcer Cleansing Rinsed/ Irrigated with Saline -Foul Odor after Cleansing No -Anesthetic Used 4% Lidocaine Solution #12 R Post LE -Current Size (cm) - Length 2.5 -Current Size (cm) - Depth 0.1 -Photo Taken Yes -Classification - Thickness Full Thickness without Exposed Support Structure -Exudate Amt Small (1-33%) -Exudate Type Serosanguineous -Wound Margin Distinct, Outline Attached -Granulation Amt None Present (0 %) -Necrosis Amt Large (67-100%) -Necrotic Tissue Type Adherent Slough -Structure Exposed N/A -Texture (Francia-wound Skin Appearance) No Abnormality -Moisture (Francia-wound Skin Appearance No Abnormality ) -Color (Francia-wound Skin Appearance) Erythema Rubor -Temperature (Francia-wound Skin No Abnormality Appearance) (Pt Warm) -Ulcer Cleansing Rinsed/ Irrigated with Saline -Foul Odor after Cleansing No -Anesthetic Used 4% Lidocaine Solution #11- RT HEEL -Current Size (cm) - Length 1 -Current Size (cm) - Width 1.1 -Current Size (cm) - Depth 0.2 -Total Square Cm 1.1 -Photo Taken Yes -Exudate Amt Small (1-33%) -Exudate Type Serosanguineous -Wound Margin Distinct, Outline Attached -Granulation Amt None Present (0 %) -Necrosis Amt Large (67-100%) -Necrotic Tissue Type Adherent Slough -Structure Exposed N/A -Texture (Francia-wound Skin Appearance) Scarring -Moisture (Francia-wound Skin Appearance No Abnormality ) -Color (Francia-wound Skin Appearance) No Abnormality -Temperature (Francia-wound Skin No Abnormality Appearance) (Pt Warm) -Ulcer Cleansing Rinsed/ Irrigated with Saline -Foul Odor after Cleansing No -Anesthetic Used 4% Lidocaine Solution Musculoskeletal: Muscle Wasting Neurological: - - Patient is and incomplete quadriplegic with only very slight sensation to parts of his lower extremity Psych/Mental Status: Normal Affect, Appropriate Debridement Note Post-Debridement Measurements/Treatment WC - Nurse 2 - General Ulcer CM Notes Start: 09/22/17 12:07 Freq: Status: Active Protocol: Activity Type Activity Date Activity User E-Sign Co-Sign Detail Recorded Client Recorded Date Recorded By Document 09/22/17 12:36 MW [id number] 09/22/17 12:39 MW 09/22/17 12:36 Wound Center Nurse 2 #11- RT HEEL -Time 12:36 -Correct Patient Yes -Correct Side, Site, Position Yes -Correct Procedure Yes -Procedure Performed No -Post Debridement Size (cm) - Length 0 -Post Debridement Size (cm) - Width 0 -Post Debridement Size (cm) - Depth 0 -Total Square Cm 0 -Wound/Ulcer Outcome Healed- Epithelialized -Ulcer Cleansing Not Cleansed -Foul Odor after Cleansing No -Bioengineered Tissue No -Bleeding Controlled with NA -Treatment Response Procedure Tolerated Well Pain Scale: 0-10 Numeric Is Patient Pain Free? Yes Wound debrided: Right posterior heel Laterality: Right Type of Debridement: Excisional debridement Anesthesia Used: 4% Lidocaine Solution Depth: in the subcutaneous layer Percentage of wound debrided: 100 Instrument Used: #15 blade Tissue Removed: Adherent slough, fibrin, hyperkeratotic tissue Severity: Fat Layer Exposed Amount of bleeding with debridement: Mild Bleeding Controlled with: Pressure Patient tolerated procedure well - Additional Wound Wound debrided: Right posterior calf Laterality: Right Type of Debridement: Excisional debridement Anesthesia Used: 4% Lidocaine Solution Depth: in the subcutaneous layer Percentage of wound debrided: 100 Instrument Used: #15 blade, Forceps Tissue Removed: Adherent slough, fibrin, necrotic eschar, hyperkeratotic tissue Severity: Fat Layer Exposed Amount of bleeding with debridement: Mild Bleeding Controlled with: Pressure Patient tolerated procedure: Patient tolerated procedure well Assessment/Plan Assessment: Ulcer to posterior right heel. Plan: Patient was again examined and evaluated in detail today. The ulcer to right posterior heel has reopened and he has a new ulcer to right posterior calf. The aforementioned ulcers were both subcutaneously debrided as noted in the clinical panel. The ulcers were then cleansed with normal sterile saline. The right posterior calf ulcer was then dressed with Santyl to the ulcer base, followed by an offloading dry sterile dressing with ABDs. A prescription for Santyl was ordered for this patient, as well as dressing supplies. The right posterior heel ulcer was then dressed with slightly moistened Nataly followed by dry sterile offloading dressing using up to foam and a nurses hat dressing. These dressings are to be changed in this manner daily with the help of home health care. We will apply for puraply, as the patient did well with this during his last visit in the wound healing center. He was instructed to keep these areas offloaded as much as possible in order to help heal the ulcer sites. Cultures were taken of each ulcer and will be evaluated for aerobic, anaerobic, and mrsa pcr. Will monitor for these results. He was instructed to continue with a diet high in protein to help optimize ulcer healing. He was educated on all signs and symptoms of local and systemic infection and was instructed to go to the ER immediately should he notice any. All questions were answered to the patient's satisfaction. He was instructed to bring his PRAFO boot with him to next visit. Patient will follow-up in clinic in 1 week for further treatment and evaluation, or sooner if needed.
[2017-10-13 20:01] LABS: M R Staph aureus DNA By PCR POSITIVE (Negative); Probe Check PASS; Staph aureus DNA By PCR POSITIVE (Negative)
[2017-10-13 20:02] LABS: M R Staph aureus DNA By PCR Negative (Negative); Probe Check PASS; Staph aureus DNA By PCR NEGATIVE (Negative)
[2017-10-20 12:46] VITALS: BP 121/61; PULSE 72; RESP 20; TEMP 36.6; BMI 26.6
--- NOTE | 2017-10-20 14:52 | PCM.WC.PN ---
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 (2) Malnutrition Status: Acute Current Visit: No Code(s): E46 - Unspecified protein-calorie malnutrition (3) Delayed wound healing Status: Acute Current Visit: No Code(s): T14.8XXD - Other injury of unspecified body region, subsequent encounter (4) Type 2 diabetes mellitus with diabetic polyneuropathy Status: Acute Current Visit: No Code(s): E11.42 - Type 2 diabetes mellitus with diabetic polyneuropathy (5) Chronic incomplete quadriplegia Status: Acute Current Visit: No Code(s): G82.50 - Quadriplegia, unspecified (6) Ulcer of right lower extremity with fat layer exposed Status: Acute Current Visit: Yes Code(s): L97.912 - Non-pressure chronic ulcer of unspecified part of right lower leg with fat layer exposed Type of Wound Date of Service: 10/20/17 Chief Complaint: Ulcer on right heel History of Wound: This is a 67-year-old white male who presents to the wound care center today for evaluation of a right heel ulcer. He has a past medical history as described above. The patient states that on the night of 06/06/2017, his heel protectors came off all night in bed and shortly after he noted an ulceration on his right heel and a purplish discoloration on his left heel. He states that there has been yellow drainage coming from his right heel and that yesterday he started using Granulex and Aquacel silver on the right heel. He denies any pain or foul-smelling discharge, however he does state that he has decreased sensation to his lower extremities due to his history of a spinal cord injury in high school. He currently has a suprapubic catheter as well due to his history of recurrent UTIs and obstructive uropathy. He also notes that his low air loss hospital bed is needing to be repaired so he is unable to use this at this time. The patient does state that he has a history of ulcerations on his right heel in the past where he had to be seen at a wound care center and ended up needing to have skin substitutes applied. He does note that he lives home alone and that he receives home health throughout the week. Patient was then referred to Dr. Gan at his office, who subsequently admitted the patient on Jul 04, for IV antibiotics and evaluation by ID. Infectious disease planned to d/c patient home on doxy 100mg bid, amoxicillin 500mg tid, and flagyl 500mg tid for planned 6 week course. He has since discharge been receiving daily dressing changes consisting of aquacel ag and a dry sterile dressing as well as wearing his PRAFO boots at all times. He otherwise denies any signs of systemic infection and denies any fever, chills, nausea, vomiting, chest pain or pressure, syncope or presyncopal episodes. Progress of Wound: Patient returns to wound healing center this week for continued treatment of right heel ulcer and right posterior calf ulcer. Patient has been wearing offloading padded boots with heel cut outs over the last week. Patient is currently taking doxycycline with no complications. He has been undergoing daily dressing changes consisting of Nataly to the right heel and Santyl to the right calf followed by dry sterile dressings, with the help of home health nurses. He denies any purulence to the area. He denies any feeling of nausea, vomiting, fever, or chills currently. - Physical Exam Vital Signs Temp Pulse Resp BP 97.9 F 72 20 H 121/61 H 10/20/17 12:46 10/20/17 12:46 10/20/17 12:46 10/20/17 12:46 General: Alert, Oriented x3, Cooperative, No apparent distress Extremities: Capillary Refill Less than 3 Seconds, No Calf Tenderness - Negative Sarah Beth and Pretty sign, Diminished Peripheral Pulses Skin: Ulcer/ Wound - Ulcer to the right posterior heel with fat layer exposed. Measurements are noted below. The base continues to be a mixture of granular tissue, adherent slough, fibrin, and surrounding hyperkeratotic tissue. There is no malodor, no purulence, no saying cellulitis, no significant increased warmth, no probing to bone, no tracking, no undermining appreciated to this area. Ulcer also appreciated to the right posterior calf with measurements noted below. The ulcer still has a base consisting of granular tissue, adherent slough, fibrotic tissue, some necrotic eschar, as well as surrounding hyperkeratotic tissue. Currently, there is no probing to bone, tracking or undermining. There is no purulence, no malodor, extending cellulitis, or increase in warmth to the area. Wound Measurements and Assessment WC - Nurse 1 - General Ulcer Measurement Start: 09/22/17 12:07 Freq: Status: Active Protocol: Activity Type Activity Date Activity User E-Sign Co-Sign Detail Recorded Client Recorded Date Recorded By Document 10/20/17 12:46 DL [id number] 10/20/17 13:00 DL 10/20/17 12:46 Wound Center Nurse 1 [Ulcer Assessment] #13 L Post LE -Current Size (cm) - Length 4.2 -Current Size (cm) - Width 1.5 -Current Size (cm) - Depth 0.1 -Total Square Cm 6.30 -Photo Taken No -Exudate Amt Medium (34-66%) -Exudate Type Serosanguineous -Wound Margin Distinct, Outline Attached -Granulation Amt Medium (34-66%) -Granulation Quality Red -Necrosis Amt Medium (34-66%) -Necrotic Tissue Type Adherent Slough -Structure Exposed N/A -Texture (Francia-wound Skin Appearance) Localized Edema -Moisture (Francia-wound Skin Appearance No Abnormality ) -Color (Francia-wound Skin Appearance) Erythema -Temperature (Francia-wound Skin Hot Appearance) -Tenderness on Palpation (Francia-wound Yes Skin Appearance) -Ulcer Cleansing Rinsed/ Irrigated with Saline -Foul Odor after Cleansing No -Anesthetic Used 4% Lidocaine Solution #12 R Post LE -Current Size (cm) - Length 1.8 -Current Size (cm) - Width 2 -Current Size (cm) - Depth 0.1 -Total Square Cm 3.6 -Photo Taken No -Exudate Amt None Present (0 %) -Wound Margin Distinct, Outline Attached -Granulation Amt None Present (0 %) -Necrosis Amt Large (67-100%) -Necrotic Tissue Type Adherent Slough -Structure Exposed N/A -Texture (Francia-wound Skin Appearance) Scarring -Moisture (Francia-wound Skin Appearance Dry/Scaly ) -Color (Francia-wound Skin Appearance) No Abnormality -Temperature (Francia-wound Skin No Abnormality Appearance) (Pt Warm) -Ulcer Cleansing Rinsed/ Irrigated with Saline -Foul Odor after Cleansing No -Anesthetic Used 4% Lidocaine Solution #11- RT HEEL -Current Size (cm) - Length 1.8 -Current Size (cm) - Width 1.4 -Current Size (cm) - Depth 0.1 -Total Square Cm 2.52 -Photo Taken No -Exudate Amt Small (1-33%) -Exudate Type Serosanguineous -Wound Margin Distinct, Outline Attached -Granulation Amt Medium (34-66%) -Granulation Quality [place] -Necrosis Amt Medium (34-66%) -Necrotic Tissue Type Adherent Slough -Structure Exposed N/A -Texture (Francia-wound Skin Appearance) Scarring -Moisture (Francia-wound Skin Appearance Dry/Scaly ) -Color (Francia-wound Skin Appearance) Erythema Rubor -Temperature (Francia-wound Skin No Abnormality Appearance) (Pt Warm) -Ulcer Cleansing Rinsed/ Irrigated with Saline -Foul Odor after Cleansing No -Anesthetic Used 4% Lidocaine Solution WC - Nurse 2 - General Ulcer CM Notes Start: 09/22/17 12:07 Freq: Status: Active Protocol: Activity Type Activity Date Activity User E-Sign Co-Sign Detail Recorded Client Recorded Date Recorded By Document 10/20/17 13:39 ROXANA [id number] 10/20/17 13:45 ROXANA 10/20/17 13:39 Wound Center Nurse 2 [Procedure/Treatment] #13 L Post LE -Time 13:39 -Correct Patient Yes -Correct Side, Site, Position Yes -Correct Procedure Yes -Procedure Performed No -Post Debridement Size (cm) - Length 0 -Post Debridement Size (cm) - Width 0 -Post Debridement Size (cm) - Depth 0 -Total Square Cm 0 -Ulcer Cleansing Not Cleansed -Foul Odor after Cleansing No -Bioengineered Tissue No -Topical Lidocaine (%) 4 -Lidocaine (ml) 5 -Bleeding Controlled with NA #12 R Post LE -Time 13:40 -Correct Patient Yes -Correct Side, Site, Position Yes -Correct Procedure Yes -Procedure Performed Yes -Type of Procedure Debridement -Clinical Debridement Subcutaneous -Post Debridement Size (cm) - Length 4.3 -Post Debridement Size (cm) - Width 1.8 -Post Debridement Size (cm) - Depth 0.3 -Total Square Cm 7.74 -Wound/Ulcer Outcome Not Healed -Ulcer Cleansing Rinsed/ Irrigated with Saline -Foul Odor after Cleansing No -Bioengineered Tissue No -Topical Lidocaine (%) 4 -Lidocaine (ml) 5 -Bleeding Controlled with NA -Treatment Response Procedure Tolerated Well #11- RT HEEL -Time 13:40 -Correct Patient Yes -Correct Side, Site, Position Yes -Correct Procedure Yes -Procedure Performed Yes -Type of Procedure Debridement -Clinical Debridement Subcutaneous -Post Debridement Size (cm) - Length 2.3 -Post Debridement Size (cm) - Width 1.8 -Post Debridement Size (cm) - Depth 0.3 -Total Square Cm 4.14 -Wound/Ulcer Outcome Not Healed -Ulcer Cleansing Rinsed/ Irrigated with Saline -Foul Odor after Cleansing No -Bioengineered Tissue Yes -Type of bioengineered Tissue [id number] -Expiration Date 03/11/19 -Product Lot Number [id number] -Percent Used 100 -Saline Lot Number [id number] -Topical Lidocaine (%) 4 -Lidocaine (ml) 5 -Bleeding Controlled with NA -Treatment Response Procedure Tolerated Well [See Physician Procedure note for Specifics] Musculoskeletal: Muscle Wasting Neurological: - - Patient is a an incomplete quadriplegic with only very slight sensation to parts of his lower extremity Psych/Mental Status: Normal Affect, Appropriate Debridement Note Post-Debridement Measurements/Treatment WC - Nurse 2 - General Ulcer CM Notes Start: 09/22/17 12:07 Freq: Status: Active Protocol: Activity Type Activity Date Activity User E-Sign Co-Sign Detail Recorded Client Recorded Date Recorded By Document 09/22/17 12:36 MW [id number] 09/22/17 12:39 MW Document 10/20/17 13:39 JS [id number] 10/20/17 13:45 JS 09/22/17 10/20/17 12:36 13:39 Wound Center Nurse 2 #13 L Post LE -Time 13:39 -Correct Patient Yes -Correct Side, Site, Position Yes -Correct Procedure Yes -Procedure Performed No -Post Debridement Size (cm) - Length 0 -Post Debridement Size (cm) - Width 0 -Post Debridement Size (cm) - Depth 0 -Total Square Cm 0 -Ulcer Cleansing Not Cleansed -Foul Odor after Cleansing No -Bioengineered Tissue No -Topical Lidocaine (%) 4 -Lidocaine (ml) 5 -Bleeding Controlled with NA #12 R Post LE -Time 13:40 -Correct Patient Yes -Correct Side, Site, Position Yes -Correct Procedure Yes -Procedure Performed Yes -Type of Procedure Debridement -Clinical Debridement Subcutaneous -Post Debridement Size (cm) - Length 4.3 -Post Debridement Size (cm) - Width 1.8 -Post Debridement Size (cm) - Depth 0.3 -Total Square Cm 7.74 -Wound/Ulcer Outcome Not Healed -Ulcer Cleansing Rinsed/ Irrigated with Saline -Foul Odor after Cleansing No -Bioengineered Tissue No -Topical Lidocaine (%) 4 -Lidocaine (ml) 5 -Bleeding Controlled with NA -Treatment Response Procedure Tolerated Well #11- RT HEEL -Time 12:36 13:40 -Correct Patient Yes Yes -Correct Side, Site, Position Yes Yes -Correct Procedure Yes Yes -Procedure Performed No Yes -Type of Procedure Debridement -Clinical Debridement Subcutaneous -Post Debridement Size (cm) - Length 0 2.3 -Post Debridement Size (cm) - Width 0 1.8 -Post Debridement Size (cm) - Depth 0 0.3 -Total Square Cm 0 4.14 -Wound/Ulcer Outcome Healed- Not Healed Epithelialized -Ulcer Cleansing Not Cleansed Rinsed/ Irrigated with Saline -Foul Odor after Cleansing No No -Bioengineered Tissue No Yes -Type of bioengineered Tissue [id number] -Expiration Date 03/11/19 -Product Lot Number [id number] -Percent Used 100 -Saline Lot Number [id number] -Topical Lidocaine (%) 4 -Lidocaine (ml) 5 -Bleeding Controlled with NA NA -Treatment Response Procedure Procedure Tolerated Well Tolerated Well Pain Scale: 0-10 Numeric Is Patient Pain Free? Yes Wound debrided: Right posterior heel Laterality: Right Type of Debridement: Excisional debridement Anesthesia Used: 4% Lidocaine Solution Depth: in the subcutaneous layer Percentage of wound debrided: 100 Instrument Used: #15 blade Tissue Removed: Adherent slough, fibrin, hyperkeratotic tissue Severity: Fat Layer Exposed Amount of bleeding with debridement: Mild Bleeding Controlled with: Pressure Patient tolerated procedure well - Additional Wound Wound debrided: Right posterior calf Laterality: Right Type of Debridement: Excisional debridement Anesthesia Used: 4% Lidocaine Solution Depth: in the subcutaneous layer Percentage of wound debrided: 100 Instrument Used: #15 blade Tissue Removed: Adherent slough, fibrotic tissue, necrotic eschar, hyperkeratotic tissue Severity: Fat Layer Exposed Amount of bleeding with debridement: Mild Bleeding Controlled with: Pressure Patient tolerated procedure: Patient tolerated procedure well Assessment/Plan Active Problems Ulcer of right lower extremity with fat layer exposed (Acute) Assessment: Ulcer to posterior right heel. Plan: Patient was again examined and evaluated in detail today. The aforementioned ulcers were both subcutaneously debrided as noted in the clinical panel again this week. The ulcers were then cleansed with normal sterile saline. The right posterior calf ulcer was then dressed with Santyl to the ulcer base, followed by an offloading dry sterile dressing with ABDs. The right posterior heel ulcer was then dressed with purply to the base, followed by wound veil, steristrips and an offloading dry sterile dressing. The calf dressing is to be changed daily. The heel dressing is to be left intact until next week. If the heel dressing needs reinforced or the top dressing needs changed, the dressing is not to be taken down past the layer of wound veil and steristrips. He was instructed to keep these areas offloaded as much as possible in order to help heal the ulcer sites. He is to continue to use his padded offloading boots with heel cut outs. Patient is currently in the middle of a course of Doxycycline that was prescribed after revieweing culture results. Dr Espinoza saw the patient as well and agreed with the doxycycline for the time being. He was instructed to continue with a diet high in protein to help optimize ulcer healing. He was educated on all signs and symptoms of local and systemic infection and was instructed to go to the ER immediately should he notice any. All questions were answered to the patient's satisfaction. Patient will follow-up in clinic in 1 week for further treatment and evaluation, or sooner if needed.
--- NOTE | 2017-10-20 15:02 | PN.PCM_ITS ---
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 (2) Malnutrition Status: Acute Current Visit: No Code(s): E46 - Unspecified protein-calorie malnutrition (3) Delayed wound healing Status: Acute Current Visit: No Code(s): T14.8XXD - Other injury of unspecified body region, subsequent encounter (4) Type 2 diabetes mellitus with diabetic polyneuropathy Status: Acute Current Visit: No Code(s): E11.42 - Type 2 diabetes mellitus with diabetic polyneuropathy (5) Chronic incomplete quadriplegia Status: Acute Current Visit: No Code(s): G82.50 - Quadriplegia, unspecified (6) Ulcer of right lower extremity with fat layer exposed Status: Acute Current Visit: Yes Code(s): L97.912 - Non-pressure chronic ulcer of unspecified part of right lower leg with fat layer exposed Type of Wound Date of Service: 10/20/17 Chief Complaint: Ulcer on right heel History of Wound: This is a 67-year-old white male who presents to the wound care center today for evaluation of a right heel ulcer. He has a past medical history as described above. The patient states that on the night of 06/06/2017, his heel protectors came off all night in bed and shortly after he noted an ulceration on his right heel and a purplish discoloration on his left heel. He states that there has been yellow drainage coming from his right heel and that yesterday he started using Granulex and Aquacel silver on the right heel. He denies any pain or foul-smelling discharge, however he does state that he has decreased sensation to his lower extremities due to his history of a spinal cord injury in high school. He currently has a suprapubic catheter as well due to his history of recurrent UTIs and obstructive uropathy. He also notes that his low air loss hospital bed is needing to be repaired so he is unable to use this at this time. The patient does state that he has a history of ulcerations on his right heel in the past where he had to be seen at a wound care center and ended up needing to have skin substitutes applied. He does note that he lives home alone and that he receives home health throughout the week. Patient was then referred to Dr. Gan at his office, who subsequently admitted the patient on Jul 04, for IV antibiotics and evaluation by ID. Infectious disease planned to d/c patient home on doxy 100mg bid, amoxicillin 500mg tid, and flagyl 500mg tid for planned 6 week course. He has since discharge been receiving daily dressing changes consisting of aquacel ag and a dry sterile dressing as well as wearing his PRAFO boots at all times. He otherwise denies any signs of systemic infection and denies any fever, chills, nausea, vomiting, chest pain or pressure, syncope or presyncopal episodes. Progress of Wound: Patient returns to wound healing center this week for continued treatment of right heel ulcer and right posterior calf ulcer. Patient has been wearing offloading padded boots with heel cut outs over the last week. Patient is currently taking doxycycline with no complications. He has been undergoing daily dressing changes consisting of Nataly to the right heel and Santyl to the right calf followed by dry sterile dressings, with the help of home health nurses. He denies any purulence to the area. He denies any feeling of nausea, vomiting, fever, or chills currently. - Physical Exam Vital Signs Temp Pulse Resp BP 97.9 F 72 20 H 121/61 H 10/20/17 12:46 10/20/17 12:46 10/20/17 12:46 10/20/17 12:46 General: Alert, Oriented x3, Cooperative, No apparent distress Extremities: Capillary Refill Less than 3 Seconds, No Calf Tenderness - Negative Sarah Beth and Pretty sign, Diminished Peripheral Pulses Skin: Ulcer/ Wound - Ulcer to the right posterior heel with fat layer exposed. Measurements are noted below. The base continues to be a mixture of granular tissue, adherent slough, fibrin, and surrounding hyperkeratotic tissue. There is no malodor, no purulence, no saying cellulitis, no significant increased warmth, no probing to bone, no tracking, no undermining appreciated to this area. Ulcer also appreciated to the right posterior calf with measurements noted below. The ulcer still has a base consisting of granular tissue, adherent slough, fibrotic tissue, some necrotic eschar, as well as surrounding hyperkeratotic tissue. Currently, there is no probing to bone, tracking or undermining. There is no purulence, no malodor, extending cellulitis, or increase in warmth to the area. Wound Measurements and Assessment WC - Nurse 1 - General Ulcer Measurement Start: 09/22/17 12:07 Freq: Status: Active Protocol: Activity Type Activity Date Activity User E-Sign Co-Sign Detail Recorded Client Recorded Date Recorded By Document 10/20/17 12:46 DL [id number] 10/20/17 13:00 DL 10/20/17 12:46 Wound Center Nurse 1 [Ulcer Assessment] #13 L Post LE -Current Size (cm) - Length 4.2 -Current Size (cm) - Width 1.5 -Current Size (cm) - Depth 0.1 -Total Square Cm 6.30 -Photo Taken No -Exudate Amt Medium (34-66%) -Exudate Type Serosanguineous -Wound Margin Distinct, Outline Attached -Granulation Amt Medium (34-66%) -Granulation Quality Red -Necrosis Amt Medium (34-66%) -Necrotic Tissue Type Adherent Slough -Structure Exposed N/A -Texture (Francia-wound Skin Appearance) Localized Edema -Moisture (Francia-wound Skin Appearance No Abnormality ) -Color (Francia-wound Skin Appearance) Erythema -Temperature (Francia-wound Skin Hot Appearance) -Tenderness on Palpation (Francia-wound Yes Skin Appearance) -Ulcer Cleansing Rinsed/ Irrigated with Saline -Foul Odor after Cleansing No -Anesthetic Used 4% Lidocaine Solution #12 R Post LE -Current Size (cm) - Length 1.8 -Current Size (cm) - Width 2 -Current Size (cm) - Depth 0.1 -Total Square Cm 3.6 -Photo Taken No -Exudate Amt None Present (0 %) -Wound Margin Distinct, Outline Attached -Granulation Amt None Present (0 %) -Necrosis Amt Large (67-100%) -Necrotic Tissue Type Adherent Slough -Structure Exposed N/A -Texture (Francia-wound Skin Appearance) Scarring -Moisture (Francia-wound Skin Appearance Dry/Scaly ) -Color (Francia-wound Skin Appearance) No Abnormality -Temperature (Francia-wound Skin No Abnormality Appearance) (Pt Warm) -Ulcer Cleansing Rinsed/ Irrigated with Saline -Foul Odor after Cleansing No -Anesthetic Used 4% Lidocaine Solution #11- RT HEEL -Current Size (cm) - Length 1.8 -Current Size (cm) - Width 1.4 -Current Size (cm) - Depth 0.1 -Total Square Cm 2.52 -Photo Taken No -Exudate Amt Small (1-33%) -Exudate Type Serosanguineous -Wound Margin Distinct, Outline Attached -Granulation Amt Medium (34-66%) -Granulation Quality Pale [place] -Necrosis Amt Medium (34-66%) -Necrotic Tissue Type Adherent Slough -Structure Exposed N/A -Texture (Francia-wound Skin Appearance) Scarring -Moisture (Francia-wound Skin Appearance Dry/Scaly ) -Color (Francia-wound Skin Appearance) Erythema Rubor -Temperature (Francia-wound Skin No Abnormality Appearance) (Pt Warm) -Ulcer Cleansing Rinsed/ Irrigated with Saline -Foul Odor after Cleansing No -Anesthetic Used 4% Lidocaine Solution WC - Nurse 2 - General Ulcer CM Notes Start: 09/22/17 12:07 Freq: Status: Active Protocol: Activity Type Activity Date Activity User E-Sign Co-Sign Detail Recorded Client Recorded Date Recorded By Document 10/20/17 13:39 ROXANA [id number] 10/20/17 13:45 ROXANA 10/20/17 13:39 Wound Center Nurse 2 [Procedure/Treatment] #13 L Post LE -Time 13:39 -Correct Patient Yes -Correct Side, Site, Position Yes -Correct Procedure Yes -Procedure Performed No -Post Debridement Size (cm) - Length 0 -Post Debridement Size (cm) - Width 0 -Post Debridement Size (cm) - Depth 0 -Total Square Cm 0 -Ulcer Cleansing Not Cleansed -Foul Odor after Cleansing No -Bioengineered Tissue No -Topical Lidocaine (%) 4 -Lidocaine (ml) 5 -Bleeding Controlled with NA #12 R Post LE -Time 13:40 -Correct Patient Yes -Correct Side, Site, Position Yes -Correct Procedure Yes -Procedure Performed Yes -Type of Procedure Debridement -Clinical Debridement Subcutaneous -Post Debridement Size (cm) - Length 4.3 -Post Debridement Size (cm) - Width 1.8 -Post Debridement Size (cm) - Depth 0.3 -Total Square Cm 7.74 -Wound/Ulcer Outcome Not Healed -Ulcer Cleansing Rinsed/ Irrigated with Saline -Foul Odor after Cleansing No -Bioengineered Tissue No -Topical Lidocaine (%) 4 -Lidocaine (ml) 5 -Bleeding Controlled with NA -Treatment Response Procedure Tolerated Well #11- RT HEEL -Time 13:40 -Correct Patient Yes -Correct Side, Site, Position Yes -Correct Procedure Yes -Procedure Performed Yes -Type of Procedure Debridement -Clinical Debridement Subcutaneous -Post Debridement Size (cm) - Length 2.3 -Post Debridement Size (cm) - Width 1.8 -Post Debridement Size (cm) - Depth 0.3 -Total Square Cm 4.14 -Wound/Ulcer Outcome Not Healed -Ulcer Cleansing Rinsed/ Irrigated with Saline -Foul Odor after Cleansing No -Bioengineered Tissue Yes -Type of bioengineered Tissue [id number] -Expiration Date 03/11/19 -Product Lot Number [id number] -Percent Used 100 -Saline Lot Number [id number] -Topical Lidocaine (%) 4 -Lidocaine (ml) 5 -Bleeding Controlled with NA -Treatment Response Procedure Tolerated Well [See Physician Procedure note for Specifics] Musculoskeletal: Muscle Wasting Neurological: - - Patient is a an incomplete quadriplegic with only very slight sensation to parts of his lower extremity Psych/Mental Status: Normal Affect, Appropriate Debridement Note Post-Debridement Measurements/Treatment WC - Nurse 2 - General Ulcer CM Notes Start: 09/22/17 12:07 Freq: Status: Active Protocol: Activity Type Activity Date Activity User E-Sign Co-Sign Detail Recorded Client Recorded Date Recorded By Document 09/22/17 12:36 MW [id number] 09/22/17 12:39 MW Document 10/20/17 13:39 JS [id number] 10/20/17 13:45 JS 09/22/17 10/20/17 12:36 13:39 Wound Center Nurse 2 #13 L Post LE -Time 13:39 -Correct Patient Yes -Correct Side, Site, Position Yes -Correct Procedure Yes -Procedure Performed No -Post Debridement Size (cm) - Length 0 -Post Debridement Size (cm) - Width 0 -Post Debridement Size (cm) - Depth 0 -Total Square Cm 0 -Ulcer Cleansing Not Cleansed -Foul Odor after Cleansing No -Bioengineered Tissue No -Topical Lidocaine (%) 4 -Lidocaine (ml) 5 -Bleeding Controlled with NA #12 R Post LE -Time 13:40 -Correct Patient Yes -Correct Side, Site, Position Yes -Correct Procedure Yes -Procedure Performed Yes -Type of Procedure Debridement -Clinical Debridement Subcutaneous -Post Debridement Size (cm) - Length 4.3 -Post Debridement Size (cm) - Width 1.8 -Post Debridement Size (cm) - Depth 0.3 -Total Square Cm 7.74 -Wound/Ulcer Outcome Not Healed -Ulcer Cleansing Rinsed/ Irrigated with Saline -Foul Odor after Cleansing No -Bioengineered Tissue No -Topical Lidocaine (%) 4 -Lidocaine (ml) 5 -Bleeding Controlled with NA -Treatment Response Procedure Tolerated Well #11- RT HEEL -Time 12:36 13:40 -Correct Patient Yes Yes -Correct Side, Site, Position Yes Yes -Correct Procedure Yes Yes -Procedure Performed No Yes -Type of Procedure Debridement -Clinical Debridement Subcutaneous -Post Debridement Size (cm) - Length 0 2.3 -Post Debridement Size (cm) - Width 0 1.8 -Post Debridement Size (cm) - Depth 0 0.3 -Total Square Cm 0 4.14 -Wound/Ulcer Outcome Healed- Not Healed Epithelialized -Ulcer Cleansing Not Cleansed Rinsed/ Irrigated with Saline -Foul Odor after Cleansing No No -Bioengineered Tissue No Yes -Type of bioengineered Tissue [id number] -Expiration Date 03/11/19 -Product Lot Number [id number] -Percent Used 100 -Saline Lot Number [id number] -Topical Lidocaine (%) 4 -Lidocaine (ml) 5 -Bleeding Controlled with NA NA -Treatment Response Procedure Procedure Tolerated Well Tolerated Well Pain Scale: 0-10 Numeric Is Patient Pain Free? Yes Wound debrided: Right posterior heel Laterality: Right Type of Debridement: Excisional debridement Anesthesia Used: 4% Lidocaine Solution Depth: in the subcutaneous layer Percentage of wound debrided: 100 Instrument Used: #15 blade Tissue Removed: Adherent slough, fibrin, hyperkeratotic tissue Severity: Fat Layer Exposed Amount of bleeding with debridement: Mild Bleeding Controlled with: Pressure Patient tolerated procedure well - Additional Wound Wound debrided: Right posterior calf Laterality: Right Type of Debridement: Excisional debridement Anesthesia Used: 4% Lidocaine Solution Depth: in the subcutaneous layer Percentage of wound debrided: 100 Instrument Used: #15 blade Tissue Removed: Adherent slough, fibrotic tissue, necrotic eschar, hyperkeratotic tissue Severity: Fat Layer Exposed Amount of bleeding with debridement: Mild Bleeding Controlled with: Pressure Patient tolerated procedure: Patient tolerated procedure well Assessment/Plan Active Problems Ulcer of right lower extremity with fat layer exposed (Acute) Assessment: Ulcer to posterior right heel. Plan: Patient was again examined and evaluated in detail today. The aforementioned ulcers were both subcutaneously debrided as noted in the clinical panel again this week. The ulcers were then cleansed with normal sterile saline. The right posterior calf ulcer was then dressed with Santyl to the ulcer base, followed by an offloading dry sterile dressing with ABDs. The right posterior heel ulcer was then dressed with purply to the base, followed by wound veil, steristrips and an offloading dry sterile dressing. The calf dressing is to be changed daily. The heel dressing is to be left intact until next week. If the heel dressing needs reinforced or the top dressing needs changed, the dressing is not to be taken down past the layer of wound veil and steristrips. He was instructed to keep these areas offloaded as much as possible in order to help heal the ulcer sites. He is to continue to use his padded offloading boots with heel cut outs. Patient is currently in the middle of a course of Doxycycline that was prescribed after revieweing culture results. Dr Espinoza saw the patient as well and agreed with the doxycycline for the time being. He was instructed to continue with a diet high in protein to help optimize ulcer healing. He was educated on all signs and symptoms of local and systemic infection and was instructed to go to the ER immediately should he notice any. All questions were answered to the patient's satisfaction. Patient will follow-up in clinic in 1 week for further treatment and evaluation, or sooner if needed.
--- NOTE | 2017-10-20 15:33 | PCM.PN.ID ---
Patient Problems: Active and Suspected Problems Ulcer of right lower extremity with fat layer exposed (Acute) Subjective: Feeling ok. Wounds on R heel and R calf stable. No surrounding redness. Taking doxy without issue. No fever, no drainage. - Physical Exam General: Alert, Cooperative Lungs: Clear to auscultation, Normal air movement Cardiovascular: Regular rate, Regular Rhythm Abdomen: Soft, Non Tender, Non-Distended Skin: Ulcer/ Wound - reviewed photos Vital Signs Temp Pulse Resp BP 97.9 F 72 20 H 121/61 H 10/20/17 12:46 10/20/17 12:46 10/20/17 12:46 10/20/17 12:46 Oxygen Delivery Method Room Air Weight: 96.615 kg Body Mass Index (BMI) 26.6 Finger Stick Blood Glucose 135 Microbiology Past 72 Hours 10/13/17 13:13 Gram Stain - Final Ulcer, Decubitus - Leg, Right Wound Culture - Final Corynebacterium striatum Anaerobic Culture - Final Anaerobic cocci 10/13/17 13:13 Gram Stain - Final Ulcer, Decubitus - Right Foot Wound Culture - Final Corynebacterium striatum Anaerobic Culture - Final No anaerobic bacteria isolated. Medical Necessity - Tobacco Use Smoking Status: Never smoker Route of nutrition/ use of supplements: [] Nutritional Intake: [] IV Site: [] Nichols Catheter: [] - Assessment/Plan Antibiotics: [] Assessment/Plan: [] Active and Suspected Problems Ulcer of right lower extremity with fat layer exposed (Acute) New wounds on R heel and calf. Cx with corynebacterium. On po doxy, plan on completing course and monitoring for increased redness, pain, drainage. Will follow as needed, d/w Dr. Griffin. Thank you.
== END 2017-10-20 23:59 ==
LOC: WC 12:00
PROVIDERS: Visit Provider Podiatrist
DX: Z45.2 Encounter for adjustment and management of vascular access device (principal); E11.621 Type 2 diabetes mellitus with foot ulcer; L97.416 Non-pressure chronic ulcer of right heel and midfoot with bone involvement without evidence of necrosis; E11.42 Type 2 diabetes mellitus with diabetic polyneuropathy; G82.50 Quadriplegia, unspecified; Z87.440 Personal history of urinary (tract) infections; N13.9 Obstructive and reflux uropathy, unspecified
CPT/HCPCS: 11042; 15275; 87070; 87075; 87077; 87205; 87640; 99212; Q4172; G0463

== ENCOUNTER → 2017-10-27 13:00 | Outpatient (CLI) | payer MEDICARE, OTHER, SELFPAY ==
--- NOTE | 2017-10-27 13:00 | DT_ITS ---
This patient was seen during an EMR downtime October 24, 2017 - October 31, 2017. This patient may have a combination of paper and electronic documentation or all paper documentation. All documentation is viewable within the e-chart portion of [facility] for each patient visit.
== END ==
PROVIDERS: Visit Provider Surgery
DX: Z45.2 Encounter for adjustment and management of vascular access device (principal)
CPT/HCPCS: 96523

== ENCOUNTER 2017-11-17 11:30 | Outpatient (RCR) | payer MEDICARE, OTHER, SELFPAY ==
[2017-10-21 00:36] VITALS: BP 121/61; PULSE 72; RESP 20; TEMP 36.6; BMI 26.6
[2017-11-10 11:52] VITALS: BP 155/92; PULSE 68; RESP 16; TEMP 36.6; BMI 26.6
--- NOTE | 2017-11-10 12:39 | PCM.WC.PN ---
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 (2) Ulcer of right lower extremity with fat layer exposed Status: Acute Current Visit: No Code(s): L97.912 - Non-pressure chronic ulcer of unspecified part of right lower leg with fat layer exposed (3) Malnutrition Status: Acute Current Visit: No Code(s): E46 - Unspecified protein-calorie malnutrition (4) Delayed wound healing Status: Acute Current Visit: No Code(s): T14.8XXD - Other injury of unspecified body region, subsequent encounter (5) Type 2 diabetes mellitus with diabetic polyneuropathy Status: Acute Current Visit: No Code(s): E11.42 - Type 2 diabetes mellitus with diabetic polyneuropathy (6) Chronic incomplete quadriplegia Status: Acute Current Visit: No Code(s): G82.50 - Quadriplegia, unspecified Type of Wound Date of Service: 11/10/17 Chief Complaint: Ulcer on right heel History of Wound: This is a 67-year-old white male who presents to the wound care center today for evaluation of a right heel ulcer. He has a past medical history as described above. The patient states that on the night of 06/06/2017, his heel protectors came off all night in bed and shortly after he noted an ulceration on his right heel and a purplish discoloration on his left heel. He states that there has been yellow drainage coming from his right heel and that yesterday he started using Granulex and Aquacel silver on the right heel. He denies any pain or foul-smelling discharge, however he does state that he has decreased sensation to his lower extremities due to his history of a spinal cord injury in high school. He currently has a suprapubic catheter as well due to his history of recurrent UTIs and obstructive uropathy. He also notes that his low air loss hospital bed is needing to be repaired so he is unable to use this at this time. The patient does state that he has a history of ulcerations on his right heel in the past where he had to be seen at a wound care center and ended up needing to have skin substitutes applied. He does note that he lives home alone and that he receives home health throughout the week. Patient was then referred to Dr. Gan at his office, who subsequently admitted the patient on Jul 04, for IV antibiotics and evaluation by ID. Infectious disease planned to d/c patient home on doxy 100mg bid, amoxicillin 500mg tid, and flagyl 500mg tid for planned 6 week course. He has since discharge been receiving daily dressing changes consisting of aquacel ag and a dry sterile dressing as well as wearing his PRAFO boots at all times. He otherwise denies any signs of systemic infection and denies any fever, chills, nausea, vomiting, chest pain or pressure, syncope or presyncopal episodes. Progress of Wound: Patient returns to wound healing center this week for continued treatment of right heel ulcer and right posterior calf ulcer. Patient has been wearing offloading padded boots with heel cut outs over the last week. Patient is currently taking doxycycline with no complications. He has been undergoing daily dressing changes consisting of Nataly to the right heel and Santyl to the right calf followed by dry sterile dressings, with the help of home health nurses. He denies any purulence to the area. He denies any feeling of nausea, vomiting, fever, or chills currently. - Physical Exam Vital Signs Temp Pulse Resp BP 97.8 F 68 16 155/92 H 11/10/17 11:52 11/10/17 11:52 11/10/17 11:52 11/10/17 11:52 General: Alert, Oriented x3, Cooperative, No apparent distress Extremities: Capillary Refill Less than 3 Seconds, No Calf Tenderness, Diminished Peripheral Pulses - Negative Sarah Beth and Pretty sign Skin: Ulcer/ Wound - Ulcer to right posterior heel with fat layer exposed. Measurements are noted below. Patient continues to be a mixture granular tissue, adherent slough, fibrin, and some surrounding hyperkeratotic tissue. Area very close to calcaneus. There is no malodor, no purulence, no extending cellulitis, no significant increase in warmth, no probing to bone, no tracking,, no undermining appreciated at this time. Ulcer to right posterior calf with measurements noted below. This ulcer still has a base consisting of granular tissue, adherent slough, fibrotic tissue, some necrotic eschar still noted. As well as surrounding hyperkeratotic tissue. There is no probing to bone, no tracking, no undermining, no purulence, no malodor, no extending cellulitis, or increase in warmth noted to the area. Wound Measurements and Assessment WC - Nurse 1 - General Ulcer Measurement Start: 11/10/17 11:52 Freq: Status: Active Protocol: Activity Type Activity Date Activity User E-Sign Co-Sign Detail Recorded Client Recorded Date Recorded By Document 11/10/17 11:52 TN [id number] 11/10/17 12:01 TN 11/10/17 11:52 Wound Center Nurse 1 [Ulcer Assessment] #13 L Post LE -Combined with other wound No -Current Size (cm) - Length 3.7 -Current Size (cm) - Width 1.6 -Current Size (cm) - Depth 0.3 -Total Square Cm 5.92 -Photo Taken No -Epithelialization None Present -Tunneling No -Undermining/Tunneling No -Circular Undermining No -Classification - Thickness Full Thickness without Exposed Support Structure -Change in Wound Grade/Stage No Query Text:If change please identify the Stage/Grade in the comment (ie. S2 G3) -Exudate Amt Small (1-33%) -Exudate Type Serous -Wound Margin Distinct, Outline Attached -Slough/Fibrin Yes -Necrosis Amt Large (67-100%) -Necrotic Tissue Type Adherent Slough -Structure Exposed None/Limited to Skin Breakdown -Texture (Francia-wound Skin Appearance) No Abnormality -Moisture (Francia-wound Skin Appearance Assessed ) -Color (Francia-wound Skin Appearance) Assessed Erythema -Temperature (Francia-wound Skin No Abnormality Appearance) (Pt Warm) -Tenderness on Palpation (Francia-wound No Skin Appearance) -Ulcer Cleansing Rinsed/ Irrigated with Saline -Foul Odor after Cleansing No -Anesthetic Used 4% Lidocaine Solution #12 R Post LE -Combined with other wound No -Current Size (cm) - Length 2.2 -Current Size (cm) - Width 2 -Current Size (cm) - Depth 0.2 -Total Square Cm 4.4 -Photo Taken No -Epithelialization None Present -Tunneling No -Undermining/Tunneling No -Circular Undermining No -Classification - Thickness Full Thickness without Exposed Support Structure -Change in Wound Grade/Stage No Query Text:If change please identify the Stage/Grade in the comment (ie. S2 G3) -Exudate Amt Large (67-100%) -Exudate Type Purulent -Wound Margin Indistinct, Non -Visible -Granulation Amt None Present (0 %) -Slough/Fibrin Yes -Necrosis Amt Large (67-100%) -Necrotic Tissue Type Eschar -Structure Exposed None/Limited to Skin Breakdown -Texture (Francia-wound Skin Appearance) Assessed Localized Edema -Moisture (Francia-wound Skin Appearance Assessed ) Dry/Scaly -Color (Francia-wound Skin Appearance) Assessed -Temperature (Francia-wound Skin No Abnormality Appearance) (Pt Warm) -Tenderness on Palpation (Francia-wound No Skin Appearance) -Ulcer Cleansing Rinsed/ Irrigated with Saline -Foul Odor after Cleansing No -Anesthetic Used 4% Lidocaine Solution #11- RT HEEL -Combined with other wound No -Photo Taken No -Epithelialization None Present -Tunneling No -Undermining/Tunneling No -Circular Undermining No -Classification - Thickness Full Thickness without Exposed Support Structure -Change in Wound Grade/Stage No Query Text:If change please identify the Stage/Grade in the comment (ie. S2 G3) -Exudate Type Purulent -Wound Margin Indistinct, Non -Visible -Granulation Amt None Present (0 %) -Slough/Fibrin Yes -Necrosis Amt Large (67-100%) -Necrotic Tissue Type Eschar -Structure Exposed None/Limited to Skin Breakdown -Texture (Francia-wound Skin Appearance) Assessed Localized Edema -Moisture (Francia-wound Skin Appearance Assessed ) Dry/Scaly -Color (Francia-wound Skin Appearance) Assessed Erythema -Temperature (Francia-wound Skin No Abnormality Appearance) (Pt Warm) -Tenderness on Palpation (Francia-wound No Skin Appearance) -Ulcer Cleansing Rinsed/ Irrigated with Saline -Foul Odor after Cleansing No -Anesthetic Used 4% Lidocaine Solution [Edema Assessment] -Lower Limb Edema Present No WC - Nurse 2 - General Ulcer CM Notes Start: 11/10/17 11:52 Freq: Status: Active Protocol: Activity Type Activity Date Activity User E-Sign Co-Sign Detail Recorded Client Recorded Date Recorded By Document 11/10/17 12:17 ROXANA [id number] 11/10/17 12:37 ROXANA 11/10/17 12:17 Wound Center Nurse 2 [Procedure/Treatment] #12 R Post LE -Time 12:36 -Correct Patient Yes -Correct Side, Site, Position Yes -Correct Procedure Yes -Procedure Performed Yes -Type of Procedure Debridement -Clinical Debridement Subcutaneous -Post Debridement Size (cm) - Length 3.0 -Post Debridement Size (cm) - Width 1.2 -Post Debridement Size (cm) - Depth 0.3 -Total Square Cm 3.60 -Wound/Ulcer Outcome Not Healed -Ulcer Cleansing Not Cleansed -Foul Odor after Cleansing No -Bioengineered Tissue No -Bleeding Controlled with NA -Treatment Response Procedure Tolerated Well #11- RT HEEL -Time 12:19 -Correct Patient Yes -Correct Side, Site, Position Yes -Correct Procedure Yes -Procedure Performed Yes -Type of Procedure Debridement -Clinical Debridement Subcutaneous -Post Debridement Size (cm) - Length 2.0 -Post Debridement Size (cm) - Width 1.5 -Post Debridement Size (cm) - Depth 0.3 -Total Square Cm 3.00 -Wound/Ulcer Outcome Not Healed -Ulcer Cleansing Not Cleansed -Foul Odor after Cleansing No -Bioengineered Tissue Yes -Type of bioengineered Tissue [id number] -Expiration Date 03/11/19 -Product Lot Number [id number] -Percent Used 100 -Saline Lot Number N/A -Topical Lidocaine (%) 4 -Lidocaine (ml) 5 -Bleeding Controlled with NA -Treatment Response Procedure Tolerated Well [See Physician Procedure note for Specifics] Pain Scale: 0-10 Numeric [Pain] -Is Patient Pain Free? Yes Musculoskeletal: Muscle Wasting Neurological: - - Patient is an incomplete quadriplegic with very slight sensation to parts of his lower extremity Psych/Mental Status: Normal Affect, Appropriate Debridement Note Post-Debridement Measurements/Treatment WC - Nurse 2 - General Ulcer CM Notes Start: 11/10/17 11:52 Freq: Status: Active Protocol: Activity Type Activity Date Activity User E-Sign Co-Sign Detail Recorded Client Recorded Date Recorded By Document 11/10/17 12:17 ROXANA [id number] 11/10/17 12:37 ROXANA 11/10/17 12:17 Wound Center Nurse 2 #12 R Post LE -Time 12:36 -Correct Patient Yes -Correct Side, Site, Position Yes -Correct Procedure Yes -Procedure Performed Yes -Type of Procedure Debridement -Clinical Debridement Subcutaneous -Post Debridement Size (cm) - Length 3.0 -Post Debridement Size (cm) - Width 1.2 -Post Debridement Size (cm) - Depth 0.3 -Total Square Cm 3.60 -Wound/Ulcer Outcome Not Healed -Ulcer Cleansing Not Cleansed -Foul Odor after Cleansing No -Bioengineered Tissue No -Bleeding Controlled with NA -Treatment Response Procedure Tolerated Well #11- RT HEEL -Time 12:19 -Correct Patient Yes -Correct Side, Site, Position Yes -Correct Procedure Yes -Procedure Performed Yes -Type of Procedure Debridement -Clinical Debridement Subcutaneous -Post Debridement Size (cm) - Length 2.0 -Post Debridement Size (cm) - Width 1.5 -Post Debridement Size (cm) - Depth 0.3 -Total Square Cm 3.00 -Wound/Ulcer Outcome Not Healed -Ulcer Cleansing Not Cleansed -Foul Odor after Cleansing No -Bioengineered Tissue Yes -Type of bioengineered Tissue [id number] -Expiration Date 03/11/19 -Product Lot Number [id number] -Percent Used 100 -Saline Lot Number N/A -Topical Lidocaine (%) 4 -Lidocaine (ml) 5 -Bleeding Controlled with NA -Treatment Response Procedure Tolerated Well Pain Scale: 0-10 Numeric Is Patient Pain Free? Yes Wound debrided: Right posterior heel Laterality: Right Type of Debridement: Excisional debridement Anesthesia Used: 4% Lidocaine Solution Depth: in the subcutaneous layer Percentage of wound debrided: 100 Instrument Used: #15 blade Tissue Removed: Adherent slough, fibrin, hyperkeratotic tissue Severity: Fat Layer Exposed Amount of bleeding with debridement: Mild Bleeding Controlled with: Pressure Patient tolerated procedure well - Additional Wound Wound debrided: Right posterior calf Laterality: Right Type of Debridement: Excisional debridement Anesthesia Used: 4% Lidocaine Solution Depth: in the subcutaneous layer Percentage of wound debrided: 100 Instrument Used: #15 blade Tissue Removed: Adherent slough, fibrotic tissue, necrotic eschar, hyperkeratotic tissue Severity: Fat Layer Exposed Amount of bleeding with debridement: Mild Bleeding Controlled with: Pressure Patient tolerated procedure: Patient tolerated procedure well Assessment/Plan Assessment: Ulcer to posterior right heel. Plan: Patient was again examined and evaluated in detail today. The aforementioned ulcers were both subcutaneously debrided as noted in the clinical panel again this week. The ulcers were then cleansed with normal sterile saline. The right posterior calf ulcer was then dressed with Santyl to the ulcer base, followed by an offloading dry sterile dressing with ABDs. The right posterior heel ulcer was then dressed with purply to the base, followed by hydrogel, wound veil, steristrips and an offloading dry sterile dressing. The calf dressing is to be changed daily. The heel dressing is to be left intact until next week. If the heel dressing needs reinforced or the top dressing needs changed, the dressing is not to be taken down past the layer of wound veil and steristrips. He was instructed to keep these areas offloaded as much as possible in order to help heal the ulcer sites. He is to continue to use his padded offloading boots with heel cut outs. He completed his prescription of Doxycycline. Dr Espinoza saw the patient as well and agreed with the doxycycline for the time being. He was instructed to continue with a diet high in protein to help optimize ulcer healing. He was educated on all signs and symptoms of local and systemic infection and was instructed to go to the ER immediately should he notice any. All questions were answered to the patient's satisfaction. Patient will follow-up in clinic in 1 week for further treatment and evaluation, or sooner if needed.
--- NOTE | 2017-11-10 12:46 | PN.PCM_ITS ---
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 (2) Ulcer of right lower extremity with fat layer exposed Status: Acute Current Visit: No Code(s): L97.912 - Non-pressure chronic ulcer of unspecified part of right lower leg with fat layer exposed (3) Malnutrition Status: Acute Current Visit: No Code(s): E46 - Unspecified protein-calorie malnutrition (4) Delayed wound healing Status: Acute Current Visit: No Code(s): T14.8XXD - Other injury of unspecified body region, subsequent encounter (5) Type 2 diabetes mellitus with diabetic polyneuropathy Status: Acute Current Visit: No Code(s): E11.42 - Type 2 diabetes mellitus with diabetic polyneuropathy (6) Chronic incomplete quadriplegia Status: Acute Current Visit: No Code(s): G82.50 - Quadriplegia, unspecified Type of Wound Date of Service: 11/10/17 Chief Complaint: Ulcer on right heel History of Wound: This is a 67-year-old white male who presents to the wound care center today for evaluation of a right heel ulcer. He has a past medical history as described above. The patient states that on the night of 06/06/2017, his heel protectors came off all night in bed and shortly after he noted an ulceration on his right heel and a purplish discoloration on his left heel. He states that there has been yellow drainage coming from his right heel and that yesterday he started using Granulex and Aquacel silver on the right heel. He denies any pain or foul-smelling discharge, however he does state that he has decreased sensation to his lower extremities due to his history of a spinal cord injury in high school. He currently has a suprapubic catheter as well due to his history of recurrent UTIs and obstructive uropathy. He also notes that his low air loss hospital bed is needing to be repaired so he is unable to use this at this time. The patient does state that he has a history of ulcerations on his right heel in the past where he had to be seen at a wound care center and ended up needing to have skin substitutes applied. He does note that he lives home alone and that he receives home health throughout the week. Patient was then referred to Dr. Gan at his office, who subsequently admitted the patient on Jul 04, for IV antibiotics and evaluation by ID. Infectious disease planned to d/c patient home on doxy 100mg bid, amoxicillin 500mg tid, and flagyl 500mg tid for planned 6 week course. He has since discharge been receiving daily dressing changes consisting of aquacel ag and a dry sterile dressing as well as wearing his PRAFO boots at all times. He otherwise denies any signs of systemic infection and denies any fever, chills, nausea, vomiting, chest pain or pressure, syncope or presyncopal episodes. Progress of Wound: Patient returns to wound healing center this week for continued treatment of right heel ulcer and right posterior calf ulcer. Patient has been wearing offloading padded boots with heel cut outs over the last week. Patient is currently taking doxycycline with no complications. He has been undergoing daily dressing changes consisting of Nataly to the right heel and Santyl to the right calf followed by dry sterile dressings, with the help of home health nurses. He denies any purulence to the area. He denies any feeling of nausea, vomiting, fever, or chills currently. - Physical Exam Vital Signs Temp Pulse Resp BP 97.8 F 68 16 155/92 H 11/10/17 11:52 11/10/17 11:52 11/10/17 11:52 11/10/17 11:52 General: Alert, Oriented x3, Cooperative, No apparent distress Extremities: Capillary Refill Less than 3 Seconds, No Calf Tenderness, Diminished Peripheral Pulses - Negative Sarah Beth and Pretty sign Skin: Ulcer/ Wound - Ulcer to right posterior heel with fat layer exposed. Measurements are noted below. Patient continues to be a mixture granular tissue , adherent slough, fibrin, and some surrounding hyperkeratotic tissue. Area very close to calcaneus. There is no malodor, no purulence, no extending cellulitis, no significant increase in warmth, no probing to bone, no tracking, , no undermining appreciated at this time. Ulcer to right posterior calf with measurements noted below. This ulcer still has a base consisting of granular tissue, adherent slough, fibrotic tissue, some necrotic eschar still noted. As well as surrounding hyperkeratotic tissue. There is no probing to bone, no tracking, no undermining, no purulence, no malodor, no extending cellulitis, or increase in warmth noted to the area. Wound Measurements and Assessment WC - Nurse 1 - General Ulcer Measurement Start: 11/10/17 11:52 Freq: Status: Active Protocol: Activity Type Activity Date Activity User E-Sign Co-Sign Detail Recorded Client Recorded Date Recorded By Document 11/10/17 11:52 [place] [id number] 11/10/17 12:01 [place] 11/10/17 11:52 Wound Center Nurse 1 [Ulcer Assessment] #13 L Post LE -Combined with other wound No -Current Size (cm) - Length 3.7 -Current Size (cm) - Width 1.6 -Current Size (cm) - Depth 0.3 -Total Square Cm 5.92 -Photo Taken No -Epithelialization None Present -Tunneling No -Undermining/Tunneling No -Circular Undermining No -Classification - Thickness Full Thickness without Exposed Support Structure -Change in Wound Grade/Stage No Query Text:If change please identify the Stage/Grade in the comment (ie. S2 G3) -Exudate Amt Small (1-33%) -Exudate Type Serous -Wound Margin Distinct, Outline Attached -Slough/Fibrin Yes -Necrosis Amt Large (67-100%) -Necrotic Tissue Type Adherent Slough -Structure Exposed None/Limited to Skin Breakdown -Texture (Francia-wound Skin Appearance) No Abnormality -Moisture (Francia-wound Skin Appearance Assessed ) -Color (Francia-wound Skin Appearance) Assessed Erythema -Temperature (Francia-wound Skin No Abnormality Appearance) (Pt Warm) -Tenderness on Palpation (Francia-wound No Skin Appearance) -Ulcer Cleansing Rinsed/ Irrigated with Saline -Foul Odor after Cleansing No -Anesthetic Used 4% Lidocaine Solution #12 R Post LE -Combined with other wound No -Current Size (cm) - Length 2.2 -Current Size (cm) - Width 2 -Current Size (cm) - Depth 0.2 -Total Square Cm 4.4 -Photo Taken No -Epithelialization None Present -Tunneling No -Undermining/Tunneling No -Circular Undermining No -Classification - Thickness Full Thickness without Exposed Support Structure -Change in Wound Grade/Stage No Query Text:If change please identify the Stage/Grade in the comment (ie. S2 G3) -Exudate Amt Large (67-100%) -Exudate Type Purulent -Wound Margin Indistinct, Non -Visible -Granulation Amt None Present (0 %) -Slough/Fibrin Yes -Necrosis Amt Large (67-100%) -Necrotic Tissue Type Eschar -Structure Exposed None/Limited to Skin Breakdown -Texture (Francia-wound Skin Appearance) Assessed Localized Edema -Moisture (Francia-wound Skin Appearance Assessed ) Dry/Scaly -Color (Francia-wound Skin Appearance) Assessed -Temperature (Francia-wound Skin No Abnormality Appearance) (Pt Warm) -Tenderness on Palpation (Francia-wound No Skin Appearance) -Ulcer Cleansing Rinsed/ Irrigated with Saline -Foul Odor after Cleansing No -Anesthetic Used 4% Lidocaine Solution #11- RT HEEL -Combined with other wound No -Photo Taken No -Epithelialization None Present -Tunneling No -Undermining/Tunneling No -Circular Undermining No -Classification - Thickness Full Thickness without Exposed Support Structure -Change in Wound Grade/Stage No Query Text:If change please identify the Stage/Grade in the comment (ie. S2 G3) -Exudate Type Purulent -Wound Margin Indistinct, Non -Visible -Granulation Amt None Present (0 %) -Slough/Fibrin Yes -Necrosis Amt Large (67-100%) -Necrotic Tissue Type Eschar -Structure Exposed None/Limited to Skin Breakdown -Texture (Francia-wound Skin Appearance) Assessed Localized Edema -Moisture (Francia-wound Skin Appearance Assessed ) Dry/Scaly -Color (Francia-wound Skin Appearance) Assessed Erythema -Temperature (Francia-wound Skin No Abnormality Appearance) (Pt Warm) -Tenderness on Palpation (Francia-wound No Skin Appearance) -Ulcer Cleansing Rinsed/ Irrigated with Saline -Foul Odor after Cleansing No -Anesthetic Used 4% Lidocaine Solution [Edema Assessment] -Lower Limb Edema Present No WC - Nurse 2 - General Ulcer CM Notes Start: 11/10/17 11:52 Freq: Status: Active Protocol: Activity Type Activity Date Activity User E-Sign Co-Sign Detail Recorded Client Recorded Date Recorded By Document 11/10/17 12:17 ROXANA [id number] 11/10/17 12:37 ROXANA 11/10/17 12:17 Wound Center Nurse 2 [Procedure/Treatment] #12 R Post LE -Time 12:36 -Correct Patient Yes -Correct Side, Site, Position Yes -Correct Procedure Yes -Procedure Performed Yes -Type of Procedure Debridement -Clinical Debridement Subcutaneous -Post Debridement Size (cm) - Length 3.0 -Post Debridement Size (cm) - Width 1.2 -Post Debridement Size (cm) - Depth 0.3 -Total Square Cm 3.60 -Wound/Ulcer Outcome Not Healed -Ulcer Cleansing Not Cleansed -Foul Odor after Cleansing No -Bioengineered Tissue No -Bleeding Controlled with NA -Treatment Response Procedure Tolerated Well #11- RT HEEL -Time 12:19 -Correct Patient Yes -Correct Side, Site, Position Yes -Correct Procedure Yes -Procedure Performed Yes -Type of Procedure Debridement -Clinical Debridement Subcutaneous -Post Debridement Size (cm) - Length 2.0 -Post Debridement Size (cm) - Width 1.5 -Post Debridement Size (cm) - Depth 0.3 -Total Square Cm 3.00 -Wound/Ulcer Outcome Not Healed -Ulcer Cleansing Not Cleansed -Foul Odor after Cleansing No -Bioengineered Tissue Yes -Type of bioengineered Tissue [id number] -Expiration Date 03/11/19 -Product Lot Number [id number] -Percent Used 100 -Saline Lot Number N/A -Topical Lidocaine (%) 4 -Lidocaine (ml) 5 -Bleeding Controlled with NA -Treatment Response Procedure Tolerated Well [See Physician Procedure note for Specifics] Pain Scale: 0-10 Numeric [Pain] -Is Patient Pain Free? Yes Musculoskeletal: Muscle Wasting Neurological: - - Patient is an incomplete quadriplegic with very slight sensation to parts of his lower extremity Psych/Mental Status: Normal Affect, Appropriate Debridement Note Post-Debridement Measurements/Treatment WC - Nurse 2 - General Ulcer CM Notes Start: 11/10/17 11:52 Freq: Status: Active Protocol: Activity Type Activity Date Activity User E-Sign Co-Sign Detail Recorded Client Recorded Date Recorded By Document 11/10/17 12:17 ROXANA [id number] 11/10/17 12:37 ROXANA 11/10/17 12:17 Wound Center Nurse 2 #12 R Post LE -Time 12:36 -Correct Patient Yes -Correct Side, Site, Position Yes -Correct Procedure Yes -Procedure Performed Yes -Type of Procedure Debridement -Clinical Debridement Subcutaneous -Post Debridement Size (cm) - Length 3.0 -Post Debridement Size (cm) - Width 1.2 -Post Debridement Size (cm) - Depth 0.3 -Total Square Cm 3.60 -Wound/Ulcer Outcome Not Healed -Ulcer Cleansing Not Cleansed -Foul Odor after Cleansing No -Bioengineered Tissue No -Bleeding Controlled with NA -Treatment Response Procedure Tolerated Well #11- RT HEEL -Time 12:19 -Correct Patient Yes -Correct Side, Site, Position Yes -Correct Procedure Yes -Procedure Performed Yes -Type of Procedure Debridement -Clinical Debridement Subcutaneous -Post Debridement Size (cm) - Length 2.0 -Post Debridement Size (cm) - Width 1.5 -Post Debridement Size (cm) - Depth 0.3 -Total Square Cm 3.00 -Wound/Ulcer Outcome Not Healed -Ulcer Cleansing Not Cleansed -Foul Odor after Cleansing No -Bioengineered Tissue Yes -Type of bioengineered Tissue [id number] -Expiration Date 03/11/19 -Product Lot Number [id number] -Percent Used 100 -Saline Lot Number N/A -Topical Lidocaine (%) 4 -Lidocaine (ml) 5 -Bleeding Controlled with NA -Treatment Response Procedure Tolerated Well Pain Scale: 0-10 Numeric Is Patient Pain Free? Yes Wound debrided: Right posterior heel Laterality: Right Type of Debridement: Excisional debridement Anesthesia Used: 4% Lidocaine Solution Depth: in the subcutaneous layer Percentage of wound debrided: 100 Instrument Used: #15 blade Tissue Removed: Adherent slough, fibrin, hyperkeratotic tissue Severity: Fat Layer Exposed Amount of bleeding with debridement: Mild Bleeding Controlled with: Pressure Patient tolerated procedure well - Additional Wound Wound debrided: Right posterior calf Laterality: Right Type of Debridement: Excisional debridement Anesthesia Used: 4% Lidocaine Solution Depth: in the subcutaneous layer Percentage of wound debrided: 100 Instrument Used: #15 blade Tissue Removed: Adherent slough, fibrotic tissue, necrotic eschar, hyperkeratotic tissue Severity: Fat Layer Exposed Amount of bleeding with debridement: Mild Bleeding Controlled with: Pressure Patient tolerated procedure: Patient tolerated procedure well Assessment/Plan Assessment: Ulcer to posterior right heel. Plan: Patient was again examined and evaluated in detail today. The aforementioned ulcers were both subcutaneously debrided as noted in the clinical panel again this week. The ulcers were then cleansed with normal sterile saline. The right posterior calf ulcer was then dressed with Santyl to the ulcer base, followed by an offloading dry sterile dressing with ABDs. The right posterior heel ulcer was then dressed with purply to the base, followed by hydrogel, wound veil, steristrips and an offloading dry sterile dressing. The calf dressing is to be changed daily. The heel dressing is to be left intact until next week. If the heel dressing needs reinforced or the top dressing needs changed, the dressing is not to be taken down past the layer of wound veil and steristrips. He was instructed to keep these areas offloaded as much as possible in order to help heal the ulcer sites. He is to continue to use his padded offloading boots with heel cut outs. He completed his prescription of Doxycycline. Dr Espinoza saw the patient as well and agreed with the doxycycline for the time being. He was instructed to continue with a diet high in protein to help optimize ulcer healing. He was educated on all signs and symptoms of local and systemic infection and was instructed to go to the ER immediately should he notice any. All questions were answered to the patient's satisfaction. Patient will follow-up in clinic in 1 week for further treatment and evaluation, or sooner if needed.
[2017-11-17 11:00] VITALS: BP 94/56; PULSE 73; RESP 16; TEMP 36.3; BMI 26.6
--- NOTE | 2017-11-17 13:18 | PCM.WC.PN ---
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 (2) Ulcer of right lower extremity with fat layer exposed Status: Acute Current Visit: No Code(s): L97.912 - Non-pressure chronic ulcer of unspecified part of right lower leg with fat layer exposed (3) Malnutrition Status: Acute Current Visit: No Code(s): E46 - Unspecified protein-calorie malnutrition (4) Delayed wound healing Status: Acute Current Visit: No Code(s): T14.8XXD - Other injury of unspecified body region, subsequent encounter (5) Type 2 diabetes mellitus with diabetic polyneuropathy Status: Acute Current Visit: No Code(s): E11.42 - Type 2 diabetes mellitus with diabetic polyneuropathy (6) Chronic incomplete quadriplegia Status: Acute Current Visit: No Code(s): G82.50 - Quadriplegia, unspecified Type of Wound Date of Service: 11/17/17 Chief Complaint: Ulcer on right heel History of Wound: This is a 67-year-old white male who presents to the wound care center today for evaluation of a right heel ulcer. He has a past medical history as described above. The patient states that on the night of 06/06/2017, his heel protectors came off all night in bed and shortly after he noted an ulceration on his right heel and a purplish discoloration on his left heel. He states that there has been yellow drainage coming from his right heel and that yesterday he started using Granulex and Aquacel silver on the right heel. He denies any pain or foul-smelling discharge, however he does state that he has decreased sensation to his lower extremities due to his history of a spinal cord injury in high school. He currently has a suprapubic catheter as well due to his history of recurrent UTIs and obstructive uropathy. He also notes that his low air loss hospital bed is needing to be repaired so he is unable to use this at this time. The patient does state that he has a history of ulcerations on his right heel in the past where he had to be seen at a wound care center and ended up needing to have skin substitutes applied. He does note that he lives home alone and that he receives home health throughout the week. Patient was then referred to Dr. Gan at his office, who subsequently admitted the patient on Jul 04, for IV antibiotics and evaluation by ID. Infectious disease planned to d/c patient home on doxy 100mg bid, amoxicillin 500mg tid, and flagyl 500mg tid for planned 6 week course. He has since discharge been receiving daily dressing changes consisting of aquacel ag and a dry sterile dressing as well as wearing his PRAFO boots at all times. He otherwise denies any signs of systemic infection and denies any fever, chills, nausea, vomiting, chest pain or pressure, syncope or presyncopal episodes. Progress of Wound: Patient returns to wound healing center this week for continued treatment of right heel ulcer and right posterior calf ulcer. Patient continues toe wear offloading padded boots with heel cut outs over the last week. Patient finished course of doxycycline. He has been undergoing daily dressing changes consisting of Nataly to the right heel and Santyl to the right calf followed by dry sterile dressings, with the help of home health nurses. He denies any purulence to the area. He denies any feeling of nausea, vomiting, fever, or chills currently. - Physical Exam Vital Signs Temp Pulse Resp BP 97.3 F L 73 16 94/56 L 11/17/17 11:00 11/17/17 11:00 11/17/17 11:11/17/17 11:00 General: Alert, Oriented x3, Cooperative, No apparent distress Extremities: Capillary Refill Less than 3 Seconds, No Calf Tenderness - Negative Sarah Beth and Pretty sign, Diminished Peripheral Pulses Skin: Ulcer/ Wound - Ulcer to right posterior heel with fat layer exposed. Measurements noted below. The base continues to be a mixture of granular tissue, adherent slough, fibrin, as well as some surrounding hyperkeratotic tissue. Ulcer close to calcaneus. There continues to be no malodor, no purulence, no extending cellulitis, and no significant increase in warmth to the area. There is also no probing to bone, no tracking, no undermining at this time. The ulcer to the right posterior calf with measurements noted below. The base continues to be a mixture of granular tissue, adherent slough, fibrotic tissue with almost no eschar appreciated today. There is no probing to bone, no tracking, no undermining, no purulence, no malodor, no extending cellulitis, no increase in warmth noted to the area at this time. Wound Measurements and Assessment WC - Nurse 1 - General Ulcer Measurement Start: 11/10/17 11:52 Freq: Status: Active Protocol: Activity Type Activity Date Activity User E-Sign Co-Sign Detail Recorded Client Recorded Date Recorded By Document 11/17/17 11:00 [id number] 11/17/17 11:15 11/17/17 11:00 Wound Center Nurse 1 [Ulcer Assessment] #12 R Post LE -Combined with other wound No -Current Size (cm) - Length 3.4 -Current Size (cm) - Width 1.0 -Current Size (cm) - Depth 0.3 -Total Square Cm 3.40 -Date of Last Picture (Recall this 11/17/17 field) -Photo Taken Yes -Tunneling No -Undermining/Tunneling Yes -Undermining/Tunneling Starts (O' 8 clock) -Undermining/Tunneling Ends (O'clock) 11 -Maximum Distance (cm) 0.3 -Circular Undermining No -Classification - Thickness Full Thickness without Exposed Support Structure -Exudate Amt Small (1-33%) -Exudate Type Serosanguineous -Wound Margin Distinct, Outline Attached -Granulation Amt Large (67-100%) -Granulation Quality Pale [place] -Slough/Fibrin Yes -Necrosis Amt Small (1-33%) -Necrotic Tissue Type Adherent Slough -Structure Exposed Fascia Fat Layer Exposed -Texture (Francia-wound Skin Appearance) No Abnormality -Moisture (Francia-wound Skin Appearance No Abnormality ) -Color (Francia-wound Skin Appearance) No Abnormality -Temperature (Francia-wound Skin No Abnormality Appearance) (Pt Warm) -Tenderness on Palpation (Francia-wound No Skin Appearance) -Ulcer Cleansing Rinsed/ Irrigated with Saline -Foul Odor after Cleansing No -Anesthetic Used 5% Lidocaine Gel #11- RT HEEL -Combined with other wound No -Current Size (cm) - Length 1.2 -Current Size (cm) - Width 1.4 -Current Size (cm) - Depth 0.3 -Total Square Cm 1.68 -Date of Last Picture (Recall this 11/17/17 field) -Photo Taken Yes -Epithelialization None Present -Tunneling No -Undermining/Tunneling No -Circular Undermining No -Classification - Thickness Full Thickness without Exposed Support Structure -Exudate Amt Medium (34-66%) -Exudate Type Serosanguineous -Wound Margin Distinct, Outline Attached -Granulation Amt None Present (0 %) -Granulation Quality N/A -Slough/Fibrin Yes -Necrosis Amt Large (67-100%) -Necrotic Tissue Type Adherent Slough -Structure Exposed Fascia Fat Layer Exposed -Texture (Francia-wound Skin Appearance) No Abnormality -Moisture (Francia-wound Skin Appearance No Abnormality ) -Color (Francia-wound Skin Appearance) Erythema -Temperature (Francia-wound Skin No Abnormality Appearance) (Pt Warm) -Tenderness on Palpation (Francia-wound No Skin Appearance) -Ulcer Cleansing Rinsed/ Irrigated with Saline -Foul Odor after Cleansing No -Anesthetic Used 5% Lidocaine Gel [Edema Assessment] -Lower Limb Edema Present No WC - Nurse 2 - General Ulcer CM Notes Start: 11/10/17 11:52 Freq: Status: Active Protocol: Activity Type Activity Date Activity User E-Sign Co-Sign Detail Recorded Client Recorded Date Recorded By Document 11/17/17 12:09 [email or web address] 11/17/17 12:14 11/17/17 12:09 Wound Center Nurse 2 [Procedure/Treatment] #12 R Post LE -Time 12:09 -Correct Patient Yes -Correct Side, Site, Position Yes -Correct Procedure Yes -Procedure Performed Yes -Type of Procedure Debridement -Clinical Debridement Subcutaneous -Post Debridement Size (cm) - Length 3.0 -Post Debridement Size (cm) - Width 1.4 -Post Debridement Size (cm) - Depth 0.3 -Total Square Cm 4.20 -Wound/Ulcer Outcome Not Healed -Ulcer Cleansing Not Cleansed -Foul Odor after Cleansing No -Bioengineered Tissue No -Bleeding Controlled with NA -Treatment Response Procedure Tolerated Well #11- RT HEEL -Time 12:09 -Correct Patient Yes -Correct Side, Site, Position Yes -Correct Procedure Yes -Procedure Performed Yes -Type of Procedure Debridement -Clinical Debridement Subcutaneous -Post Debridement Size (cm) - Length 2.1 -Post Debridement Size (cm) - Width 1.6 -Post Debridement Size (cm) - Depth 0.3 -Total Square Cm 3.36 -Wound/Ulcer Outcome Not Healed -Ulcer Cleansing Not Cleansed -Foul Odor after Cleansing No -Bioengineered Tissue Yes -Type of bioengineered Tissue [id number] -Expiration Date 03/11/19 -Product Lot Number [id number] -Percent Used 100 -Saline Lot Number [id number] -Topical Lidocaine (%) 4 -Bleeding Controlled with NA -Treatment Response Procedure Tolerated Well [See Physician Procedure note for Specifics] Pain Scale: 0-10 Numeric [Pain] -Is Patient Pain Free? Yes Musculoskeletal: Muscle Wasting Neurological: - - Patient is an incomplete quadriplegic with very slight sensation to certain areas of lower extremity. Psych/Mental Status: Normal Affect, Appropriate Debridement Note Post-Debridement Measurements/Treatment WC - Nurse 2 - General Ulcer CM Notes Start: 11/10/17 11:52 Freq: Status: Active Protocol: Activity Type Activity Date Activity User E-Sign Co-Sign Detail Recorded Client Recorded Date Recorded By Document 11/10/17 12:17 JS [id number] 11/10/17 12:37 JS Document 11/17/17 12:09 [id number] 11/17/17 12:14 11/10/17 11/17/17 12:17 12:09 Wound Center Nurse 2 #12 R Post LE -Time 12:36 12:09 -Correct Patient Yes Yes -Correct Side, Site, Position Yes Yes -Correct Procedure Yes Yes -Procedure Performed Yes Yes -Type of Procedure Debridement Debridement -Clinical Debridement Subcutaneous Subcutaneous -Post Debridement Size (cm) - Length 3.0 3.0 -Post Debridement Size (cm) - Width 1.2 1.4 -Post Debridement Size (cm) - Depth 0.3 0.3 -Total Square Cm 3.60 4.20 -Wound/Ulcer Outcome Not Healed Not Healed -Ulcer Cleansing Not Cleansed Not Cleansed -Foul Odor after Cleansing No No -Bioengineered Tissue No No -Bleeding Controlled with NA NA -Treatment Response Procedure Procedure Tolerated Well Tolerated Well #11- RT HEEL -Time 12:19 12:09 -Correct Patient Yes Yes -Correct Side, Site, Position Yes Yes -Correct Procedure Yes Yes -Procedure Performed Yes Yes -Type of Procedure Debridement Debridement -Clinical Debridement Subcutaneous Subcutaneous -Post Debridement Size (cm) - Length 2.0 2.1 -Post Debridement Size (cm) - Width 1.5 1.6 -Post Debridement Size (cm) - Depth 0.3 0.3 -Total Square Cm 3.00 3.36 -Wound/Ulcer Outcome Not Healed Not Healed -Ulcer Cleansing Not Cleansed Not Cleansed -Foul Odor after Cleansing No No -Bioengineered Tissue Yes Yes -Type of bioengineered Tissue [id number] -Expiration Date 03/11/19 03/11/19 -Product Lot Number [id number] -Percent Used 100 100 -Saline Lot Number N/A [id number] -Topical Lidocaine (%) 4 4 -Lidocaine (ml) 5 -Bleeding Controlled with NA NA -Treatment Response Procedure Procedure Tolerated Well Tolerated Well Pain Scale: 0-10 Numeric Is Patient Pain Free? Yes Yes Wound debrided: Right posterior heel Laterality: Right Type of Debridement: Excisional debridement Anesthesia Used: 4% Lidocaine Solution Depth: in the subcutaneous layer Percentage of wound debrided: 100 Instrument Used: #15 blade, - Tissue Removed: Adherent slough, fibrin, hyperkeratotic tissue Severity: Fat Layer Exposed Amount of bleeding with debridement: Mild Bleeding Controlled with: Pressure Patient tolerated procedure well - Additional Wound Wound debrided: Right posterior calf Laterality: Right Type of Debridement: Excisional debridement Anesthesia Used: 4% Lidocaine Solution Depth: in the subcutaneous layer Percentage of wound debrided: 100 Instrument Used: #15 blade Tissue Removed: Adherent slough, fibrin, hyperkeratotic tissue Severity: Fat Layer Exposed Amount of bleeding with debridement: Mild Bleeding Controlled with: Pressure Patient tolerated procedure: Patient tolerated procedure well Assessment/Plan Assessment: Ulcer to posterior right heel. Plan: Patient was again examined and evaluated in detail today. The aforementioned ulcers were both subcutaneously debrided as noted in the clinical panel again this week. The ulcers were then cleansed with normal sterile saline. The right posterior calf ulcer was then dressed with Santyl to the ulcer base, followed by an offloading dry sterile dressing with ABDs. The right posterior heel ulcer was then dressed with purply to the base, followed by hydrogel, wound veil, steristrips and an offloading dry sterile dressing. The calf dressing is to be changed daily. The heel dressing is to be left intact until next week. If the heel dressing needs reinforced or the top dressing needs changed, the dressing is not to be taken down past the layer of wound veil and steristrips. He was instructed to keep these areas offloaded as much as possible in order to help heal the ulcer sites. He is to continue to use his padded offloading boots with heel cut outs. He completed his prescription of Doxycycline. We will apply for epifix for this patient. He was instructed to continue with a diet high in protein to help optimize ulcer healing. He was educated on all signs and symptoms of local and systemic infection and was instructed to go to the ER immediately should he notice any. All questions were answered to the patient's satisfaction. Patient will follow-up in clinic in 1 week for further treatment and evaluation, or sooner if needed.
--- NOTE | 2017-11-17 13:26 | PN.PCM_ITS ---
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 (2) Ulcer of right lower extremity with fat layer exposed Status: Acute Current Visit: No Code(s): L97.912 - Non-pressure chronic ulcer of unspecified part of right lower leg with fat layer exposed (3) Malnutrition Status: Acute Current Visit: No Code(s): E46 - Unspecified protein-calorie malnutrition (4) Delayed wound healing Status: Acute Current Visit: No Code(s): T14.8XXD - Other injury of unspecified body region, subsequent encounter (5) Type 2 diabetes mellitus with diabetic polyneuropathy Status: Acute Current Visit: No Code(s): E11.42 - Type 2 diabetes mellitus with diabetic polyneuropathy (6) Chronic incomplete quadriplegia Status: Acute Current Visit: No Code(s): G82.50 - Quadriplegia, unspecified Type of Wound Date of Service: 11/17/17 Chief Complaint: Ulcer on right heel History of Wound: This is a 67-year-old white male who presents to the wound care center today for evaluation of a right heel ulcer. He has a past medical history as described above. The patient states that on the night of 06/06/2017, his heel protectors came off all night in bed and shortly after he noted an ulceration on his right heel and a purplish discoloration on his left heel. He states that there has been yellow drainage coming from his right heel and that yesterday he started using Granulex and Aquacel silver on the right heel. He denies any pain or foul-smelling discharge, however he does state that he has decreased sensation to his lower extremities due to his history of a spinal cord injury in high school. He currently has a suprapubic catheter as well due to his history of recurrent UTIs and obstructive uropathy. He also notes that his low air loss hospital bed is needing to be repaired so he is unable to use this at this time. The patient does state that he has a history of ulcerations on his right heel in the past where he had to be seen at a wound care center and ended up needing to have skin substitutes applied. He does note that he lives home alone and that he receives home health throughout the week. Patient was then referred to Dr. Gan at his office, who subsequently admitted the patient on Jul 04, for IV antibiotics and evaluation by ID. Infectious disease planned to d/c patient home on doxy 100mg bid, amoxicillin 500mg tid, and flagyl 500mg tid for planned 6 week course. He has since discharge been receiving daily dressing changes consisting of aquacel ag and a dry sterile dressing as well as wearing his PRAFO boots at all times. He otherwise denies any signs of systemic infection and denies any fever, chills, nausea, vomiting, chest pain or pressure, syncope or presyncopal episodes. Progress of Wound: Patient returns to wound healing center this week for continued treatment of right heel ulcer and right posterior calf ulcer. Patient continues toe wear offloading padded boots with heel cut outs over the last week. Patient finished course of doxycycline. He has been undergoing daily dressing changes consisting of Nataly to the right heel and Santyl to the right calf followed by dry sterile dressings, with the help of home health nurses. He denies any purulence to the area. He denies any feeling of nausea, vomiting, fever, or chills currently. - Physical Exam Vital Signs Temp Pulse Resp BP 97.3 F L 73 16 94/56 L 11/17/17 11:00 11/17/17 11:00 11/17/17 11:11/17/17 11:00 General: Alert, Oriented x3, Cooperative, No apparent distress Extremities: Capillary Refill Less than 3 Seconds, No Calf Tenderness - Negative Sarah Beth and Pretty sign, Diminished Peripheral Pulses Skin: Ulcer/ Wound - Ulcer to right posterior heel with fat layer exposed. Measurements noted below. The base continues to be a mixture of granular tissue , adherent slough, fibrin, as well as some surrounding hyperkeratotic tissue. Ulcer close to calcaneus. There continues to be no malodor, no purulence, no extending cellulitis, and no significant increase in warmth to the area. There is also no probing to bone, no tracking, no undermining at this time. The ulcer to the right posterior calf with measurements noted below. The base continues to be a mixture of granular tissue, adherent slough, fibrotic tissue with almost no eschar appreciated today. There is no probing to bone, no tracking, no undermining, no purulence, no malodor, no extending cellulitis, no increase in warmth noted to the area at this time. Wound Measurements and Assessment WC - Nurse 1 - General Ulcer Measurement Start: 11/10/17 11:52 Freq: Status: Active Protocol: Activity Type Activity Date Activity User E-Sign Co-Sign Detail Recorded Client Recorded Date Recorded By Document 11/17/17 11:00 [id number] 11/17/17 11:15 11/17/17 11:00 Wound Center Nurse 1 [Ulcer Assessment] #12 R Post LE -Combined with other wound No -Current Size (cm) - Length 3.4 -Current Size (cm) - Width 1.0 -Current Size (cm) - Depth 0.3 -Total Square Cm 3.40 -Date of Last Picture (Recall this 11/17/17 field) -Photo Taken Yes -Tunneling No -Undermining/Tunneling Yes -Undermining/Tunneling Starts (O' 8 clock) -Undermining/Tunneling Ends (O'clock) 11 -Maximum Distance (cm) 0.3 -Circular Undermining No -Classification - Thickness Full Thickness without Exposed Support Structure -Exudate Amt Small (1-33%) -Exudate Type Serosanguineous -Wound Margin Distinct, Outline Attached -Granulation Amt Large (67-100%) -Granulation Quality [place] -Slough/Fibrin Yes -Necrosis Amt Small (1-33%) -Necrotic Tissue Type Adherent Slough -Structure Exposed Fascia Fat Layer Exposed -Texture (Francia-wound Skin Appearance) No Abnormality -Moisture (Francia-wound Skin Appearance No Abnormality ) -Color (Francia-wound Skin Appearance) No Abnormality -Temperature (Francia-wound Skin No Abnormality Appearance) (Pt Warm) -Tenderness on Palpation (Francia-wound No Skin Appearance) -Ulcer Cleansing Rinsed/ Irrigated with Saline -Foul Odor after Cleansing No -Anesthetic Used 5% Lidocaine Gel #11- RT HEEL -Combined with other wound No -Current Size (cm) - Length 1.2 -Current Size (cm) - Width 1.4 -Current Size (cm) - Depth 0.3 -Total Square Cm 1.68 -Date of Last Picture (Recall this 11/17/17 field) -Photo Taken Yes -Epithelialization None Present -Tunneling No -Undermining/Tunneling No -Circular Undermining No -Classification - Thickness Full Thickness without Exposed Support Structure -Exudate Amt Medium (34-66%) -Exudate Type Serosanguineous -Wound Margin Distinct, Outline Attached -Granulation Amt None Present (0 %) -Granulation Quality N/A -Slough/Fibrin Yes -Necrosis Amt Large (67-100%) -Necrotic Tissue Type Adherent Slough -Structure Exposed Fascia Fat Layer Exposed -Texture (Francia-wound Skin Appearance) No Abnormality -Moisture (Francia-wound Skin Appearance No Abnormality ) -Color (Francia-wound Skin Appearance) Erythema -Temperature (Francia-wound Skin No Abnormality Appearance) (Pt Warm) -Tenderness on Palpation (Francia-wound No Skin Appearance) -Ulcer Cleansing Rinsed/ Irrigated with Saline -Foul Odor after Cleansing No -Anesthetic Used 5% Lidocaine Gel [Edema Assessment] -Lower Limb Edema Present No WC - Nurse 2 - General Ulcer CM Notes Start: 11/10/17 11:52 Freq: Status: Active Protocol: Activity Type Activity Date Activity User E-Sign Co-Sign Detail Recorded Client Recorded Date Recorded By Document 11/17/17 12:09 [id number] 11/17/17 12:14 11/17/17 12:09 Wound Center Nurse 2 [Procedure/Treatment] #12 R Post LE -Time 12:09 -Correct Patient Yes -Correct Side, Site, Position Yes -Correct Procedure Yes -Procedure Performed Yes -Type of Procedure Debridement -Clinical Debridement Subcutaneous -Post Debridement Size (cm) - Length 3.0 -Post Debridement Size (cm) - Width 1.4 -Post Debridement Size (cm) - Depth 0.3 -Total Square Cm 4.20 -Wound/Ulcer Outcome Not Healed -Ulcer Cleansing Not Cleansed -Foul Odor after Cleansing No -Bioengineered Tissue No -Bleeding Controlled with NA -Treatment Response Procedure Tolerated Well #11- RT HEEL -Time 12:09 -Correct Patient Yes -Correct Side, Site, Position Yes -Correct Procedure Yes -Procedure Performed Yes -Type of Procedure Debridement -Clinical Debridement Subcutaneous -Post Debridement Size (cm) - Length 2.1 -Post Debridement Size (cm) - Width 1.6 -Post Debridement Size (cm) - Depth 0.3 -Total Square Cm 3.36 -Wound/Ulcer Outcome Not Healed -Ulcer Cleansing Not Cleansed -Foul Odor after Cleansing No -Bioengineered Tissue Yes -Type of bioengineered Tissue [id number] -Expiration Date 03/11/19 -Product Lot Number [id number] -Percent Used 100 -Saline Lot Number [id number] -Topical Lidocaine (%) 4 -Bleeding Controlled with NA -Treatment Response Procedure Tolerated Well [See Physician Procedure note for Specifics] Pain Scale: 0-10 Numeric [Pain] -Is Patient Pain Free? Yes Musculoskeletal: Muscle Wasting Neurological: - - Patient is an incomplete quadriplegic with very slight sensation to certain areas of lower extremity. Psych/Mental Status: Normal Affect, Appropriate Debridement Note Post-Debridement Measurements/Treatment WC - Nurse 2 - General Ulcer CM Notes Start: 11/10/17 11:52 Freq: Status: Active Protocol: Activity Type Activity Date Activity User E-Sign Co-Sign Detail Recorded Client Recorded Date Recorded By Document 11/10/17 12:17 JS [id number] 11/10/17 12:37 JS Document 11/17/17 12:09 [id number] 11/17/17 12:14 11/10/17 11/17/17 12:17 12:09 Wound Center Nurse 2 #12 R Post LE -Time 12:36 12:09 -Correct Patient Yes Yes -Correct Side, Site, Position Yes Yes -Correct Procedure Yes Yes -Procedure Performed Yes Yes -Type of Procedure Debridement Debridement -Clinical Debridement Subcutaneous Subcutaneous -Post Debridement Size (cm) - Length 3.0 3.0 -Post Debridement Size (cm) - Width 1.2 1.4 -Post Debridement Size (cm) - Depth 0.3 0.3 -Total Square Cm 3.60 4.20 -Wound/Ulcer Outcome Not Healed Not Healed -Ulcer Cleansing Not Cleansed Not Cleansed -Foul Odor after Cleansing No No -Bioengineered Tissue No No -Bleeding Controlled with NA NA -Treatment Response Procedure Procedure Tolerated Well Tolerated Well #11- RT HEEL -Time 12:19 12:09 -Correct Patient Yes Yes -Correct Side, Site, Position Yes Yes -Correct Procedure Yes Yes -Procedure Performed Yes Yes -Type of Procedure Debridement Debridement -Clinical Debridement Subcutaneous Subcutaneous -Post Debridement Size (cm) - Length 2.0 2.1 -Post Debridement Size (cm) - Width 1.5 1.6 -Post Debridement Size (cm) - Depth 0.3 0.3 -Total Square Cm 3.00 3.36 -Wound/Ulcer Outcome Not Healed Not Healed -Ulcer Cleansing Not Cleansed Not Cleansed -Foul Odor after Cleansing No No -Bioengineered Tissue Yes Yes -Type of bioengineered Tissue [id number] -Expiration Date 03/11/19 03/11/19 -Product Lot Number [id number] -Percent Used 100 100 -Saline Lot Number N/A [id number] -Topical Lidocaine (%) 4 4 -Lidocaine (ml) 5 -Bleeding Controlled with NA NA -Treatment Response Procedure Procedure Tolerated Well Tolerated Well Pain Scale: 0-10 Numeric Is Patient Pain Free? Yes Yes Wound debrided: Right posterior heel Laterality: Right Type of Debridement: Excisional debridement Anesthesia Used: 4% Lidocaine Solution Depth: in the subcutaneous layer Percentage of wound debrided: 100 Instrument Used: #15 blade, - Tissue Removed: Adherent slough, fibrin, hyperkeratotic tissue Severity: Fat Layer Exposed Amount of bleeding with debridement: Mild Bleeding Controlled with: Pressure Patient tolerated procedure well - Additional Wound Wound debrided: Right posterior calf Laterality: Right Type of Debridement: Excisional debridement Anesthesia Used: 4% Lidocaine Solution Depth: in the subcutaneous layer Percentage of wound debrided: 100 Instrument Used: #15 blade Tissue Removed: Adherent slough, fibrin, hyperkeratotic tissue Severity: Fat Layer Exposed Amount of bleeding with debridement: Mild Bleeding Controlled with: Pressure Patient tolerated procedure: Patient tolerated procedure well Assessment/Plan Assessment: Ulcer to posterior right heel. Plan: Patient was again examined and evaluated in detail today. The aforementioned ulcers were both subcutaneously debrided as noted in the clinical panel again this week. The ulcers were then cleansed with normal sterile saline. The right posterior calf ulcer was then dressed with Santyl to the ulcer base, followed by an offloading dry sterile dressing with ABDs. The right posterior heel ulcer was then dressed with purply to the base, followed by hydrogel, wound veil, steristrips and an offloading dry sterile dressing. The calf dressing is to be changed daily. The heel dressing is to be left intact until next week. If the heel dressing needs reinforced or the top dressing needs changed, the dressing is not to be taken down past the layer of wound veil and steristrips. He was instructed to keep these areas offloaded as much as possible in order to help heal the ulcer sites. He is to continue to use his padded offloading boots with heel cut outs. He completed his prescription of Doxycycline. We will apply for epifix for this patient. He was instructed to continue with a diet high in protein to help optimize ulcer healing. He was educated on all signs and symptoms of local and systemic infection and was instructed to go to the ER immediately should he notice any. All questions were answered to the patient's satisfaction. Patient will follow- up in clinic in 1 week for further treatment and evaluation, or sooner if needed.
== END 2017-11-19 23:59 ==
LOC: WC 11:30
PROVIDERS: Visit Provider Podiatrist
DX: Z45.2 Encounter for adjustment and management of vascular access device (principal); E11.621 Type 2 diabetes mellitus with foot ulcer; E11.42 Type 2 diabetes mellitus with diabetic polyneuropathy; G82.50 Quadriplegia, unspecified; Z87.440 Personal history of urinary (tract) infections; N13.9 Obstructive and reflux uropathy, unspecified; L97.212 Non-pressure chronic ulcer of right calf with fat layer exposed; L97.412 Non-pressure chronic ulcer of right heel and midfoot with fat layer exposed
CPT/HCPCS: 11042; 15275; 96523; Q4172

== ENCOUNTER → 2017-11-24 12:25 | Outpatient (CLI) | payer MEDICARE, OTHER, SELFPAY | PROVIDERS: Visit Provider Surgery | DX: Z45.2 Encounter for adjustment and management of vascular access device (principal); E11.621 Type 2 diabetes mellitus with foot ulcer; L97.416 Non-pressure chronic ulcer of right heel and midfoot with bone involvement without evidence of necrosis; E11.42 Type 2 diabetes mellitus with diabetic polyneuropathy; G82.50 Quadriplegia, unspecified; N13.9 Obstructive and reflux uropathy, unspecified; Z87.440 Personal history of urinary (tract) infections | CPT/HCPCS: 15275; 96523; Q4131 ==

== ENCOUNTER 2017-12-15 11:00 | Outpatient (RCR) | payer MEDICARE, OTHER, SELFPAY ==
[2017-11-20 00:35] VITALS: BP 94/56; PULSE 73; RESP 16; TEMP 36.3; BMI 26.6
[2017-11-24 10:33] VITALS: BP 97/57; PULSE 71; RESP 18; TEMP 36; BMI 26.6
--- NOTE | 2017-11-24 13:15 | PCM.WC.PN ---
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 Status: Acute Current Visit: No Code(s): E11.621 - Type 2 diabetes mellitus with foot ulcer; L97.416 - Non-pressure chronic ulcer of right heel and midfoot with bone involvement without evidence of necrosis (5) Chronic incomplete quadriplegia Status: Acute Current Visit: No Code(s): G82.50 - Quadriplegia, unspecified (6) Malnutrition Status: Acute Current Visit: No Code(s): E46 - Unspecified protein-calorie malnutrition Type of Wound Date of Service: 11/24/17 Chief Complaint: Ulcer on right heel History of Wound: This is a 67-year-old white male who presents to the wound care center today for evaluation of a right heel ulcer. He has a past medical history as described above. The patient states that on the night of 06/06/2017, his heel protectors came off all night in bed and shortly after he noted an ulceration on his right heel and a purplish discoloration on his left heel. He states that there has been yellow drainage coming from his right heel and that yesterday he started using Granulex and Aquacel silver on the right heel. He denies any pain or foul-smelling discharge, however he does state that he has decreased sensation to his lower extremities due to his history of a spinal cord injury in high school. He currently has a suprapubic catheter as well due to his history of recurrent UTIs and obstructive uropathy. He also notes that his low air loss hospital bed is needing to be repaired so he is unable to use this at this time. The patient does state that he has a history of ulcerations on his right heel in the past where he had to be seen at a wound care center and ended up needing to have skin substitutes applied. He does note that he lives home alone and that he receives home health throughout the week. Patient was then referred to Dr. Gan at his office, who subsequently admitted the patient on Jul 04, for IV antibiotics and evaluation by ID. Infectious disease planned to d/c patient home on doxy 100mg bid, amoxicillin 500mg tid, and flagyl 500mg tid for planned 6 week course. He has since discharge been receiving daily dressing changes consisting of aquacel ag and a dry sterile dressing as well as wearing his PRAFO boots at all times. He otherwise denies any signs of systemic infection and denies any fever, chills, nausea, vomiting, chest pain or pressure, syncope or presyncopal episodes. Progress of Wound: Patient returns to wound healing center this week for continued treatment of right heel ulcer and right posterior calf ulcer. Patient continues to wear offloading padded boots with heel cut outs over the last week. Patient finished course of doxycycline. He has been undergoing daily dressing changes consisting of Nataly to the right heel and Santyl to the right calf followed by dry sterile dressings, with the help of home health nurses. He denies any purulence to the area. He denies any feeling of nausea, vomiting, fever, or chills currently. - Physical Exam Vital Signs Temp Pulse Resp BP 96.8 F L 71 18 97/57 L 11/24/17 10:33 11/24/17 10:33 11/24/17 10:33 11/24/17 10:33 General: Alert, Oriented x3, Cooperative, No apparent distress Extremities: Capillary Refill Less than 3 Seconds, No Calf Tenderness - Negative Sarah Beth and Pretty sign, Diminished Peripheral Pulses Skin: Ulcer/ Wound - Ulcer right posterior heel with fat layer exposed. Measurements noted below. Patient continues to be a mixture granular tissue, adherent slough, and fibrin with some hyperkeratotic tissue appreciated around the periphery. Ulcers close to the posterior calcaneus. There is no malodor, no purulence, no extending cellulitis, and no significant increase in warmth appreciated to the area. There continues to be no probing to bone, no tracking, no undermining at this time to the ulcer site. Ulcer appreciated right posterior calf with measurements noted below. The base is a mixture of granular tissue, adherent slough, fibrotic tissue. There continues to be no necrotic tissue appreciated at this time today. There is no probing to bone, no tracking, no undermining, no purulence, no malodor, no extending cellulitis, no increase in warmth to the ulcer site at this time. Wound Measurements and Assessment WC - Nurse 1 - General Ulcer Measurement Start: 11/24/17 10:33 Freq: Status: Active Protocol: Activity Type Activity Date Activity User E-Sign Co-Sign Detail Recorded Client Recorded Date Recorded By Document 11/24/17 10:33 [facility] [id number] 11/24/17 10:37 [facility] 11/24/17 10:33 Wound Center Nurse 1 [Ulcer Assessment] #12 R Post LE -Combined with other wound No -Current Size (cm) - Length 4 -Current Size (cm) - Width 1.5 -Current Size (cm) - Depth 0.3 -Total Square Cm 6.0 -Photo Taken No -Epithelialization None Present -Tunneling No -Undermining/Tunneling No -Circular Undermining No -Exudate Amt Medium (34-66%) -Exudate Type Serosanguineous -Wound Margin Distinct, Outline Attached -Granulation Amt Small (1-33%) -Granulation Quality Red -Slough/Fibrin Yes -Necrosis Amt Large (67-100%) -Necrotic Tissue Type Eschar -Structure Exposed Fascia Fat Layer Exposed -Texture (Francia-wound Skin Appearance) Excoriation Scarring -Moisture (Francia-wound Skin Appearance Assessed ) -Color (Francia-wound Skin Appearance) Erythema -Temperature (Francia-wound Skin No Abnormality Appearance) (Pt Warm) -Tenderness on Palpation (Francia-wound No Skin Appearance) -Ulcer Cleansing Rinsed/ Irrigated with Saline -Foul Odor after Cleansing No -Anesthetic Used 4% Lidocaine Solution #11- RT HEEL -Combined with other wound No -Current Size (cm) - Length 2 -Current Size (cm) - Width 1.2 -Current Size (cm) - Depth 0.1 -Total Square Cm 2.4 -Photo Taken No -Epithelialization None Present -Tunneling No -Undermining/Tunneling No -Circular Undermining No -Exudate Amt Medium (34-66%) -Exudate Type Serosanguineous -Wound Margin Distinct, Outline Attached -Granulation Amt Large (67-100%) -Granulation Quality Pale [place] -Necrosis Amt Small (1-33%) -Necrotic Tissue Type Adherent Slough -Texture (Francia-wound Skin Appearance) Callus Scarring -Moisture (Francia-wound Skin Appearance Assessed ) -Color (Francia-wound Skin Appearance) Assessed -Temperature (Francia-wound Skin No Abnormality Appearance) (Pt Warm) -Tenderness on Palpation (Francia-wound No Skin Appearance) -Ulcer Cleansing Rinsed/ Irrigated with Saline -Foul Odor after Cleansing No -Anesthetic Used 4% Lidocaine Solution WC - Nurse 2 - General Ulcer CM Notes Start: 11/24/17 10:33 Freq: Status: Active Protocol: Activity Type Activity Date Activity User E-Sign Co-Sign Detail Recorded Client Recorded Date Recorded By Document 11/24/17 10:56 [id number] 11/24/17 11:20 CS 11/24/17 10:56 Wound Center Nurse 2 [Procedure/Treatment] #12 R Post LE -Time 11:00 -Correct Patient Yes -Correct Side, Site, Position Yes -Correct Procedure Yes -Procedure Performed Yes -Type of Procedure Debridement -Clinical Debridement Subcutaneous -Post Debridement Size (cm) - Length 3.4 -Post Debridement Size (cm) - Width 1.5 -Post Debridement Size (cm) - Depth 0.3 -Total Square Cm 5.10 -Wound/Ulcer Outcome Not Healed -Ulcer Cleansing Rinsed/ Irrigated with Saline -Foul Odor after Cleansing No -Bioengineered Tissue Yes -Type of bioengineered Tissue EPIFIX -Expiration Date 08/21/22 -Product Lot Number [id number] -Percent Used 50 -Saline Lot Number [id number] -Bleeding Controlled with Pressure -Treatment Response Procedure Tolerated Well #11- RT HEEL -Time 11:00 -Correct Patient Yes -Correct Side, Site, Position Yes -Correct Procedure Yes -Procedure Performed Yes -Type of Procedure Debridement -Clinical Debridement Subcutaneous -Post Debridement Size (cm) - Length 2.0 -Post Debridement Size (cm) - Width 1.3 -Post Debridement Size (cm) - Depth 0.3 -Total Square Cm 2.60 -Wound/Ulcer Outcome Not Healed -Ulcer Cleansing Rinsed/ Irrigated with Saline -Foul Odor after Cleansing No -Bioengineered Tissue Yes -Type of bioengineered Tissue EPIFIX -Expiration Date 08/21/22 -Product Lot Number [id number] -Percent Used 25 -Saline Lot Number [id number] -Bleeding Controlled with Pressure -Treatment Response Procedure Tolerated Well [See Physician Procedure note for Specifics] Musculoskeletal: No Tenderness to Palpation of Joints or Extremities, Muscle Wasting Neurological: - - Patient is an incomplete quadriplegic with very slight sensation to certain areas of the lower extremity Psych/Mental Status: Normal Affect, Appropriate Debridement Note Post-Debridement Measurements/Treatment WC - Nurse 2 - General Ulcer CM Notes Start: 11/24/17 10:33 Freq: Status: Active Protocol: Activity Type Activity Date Activity User E-Sign Co-Sign Detail Recorded Client Recorded Date Recorded By Document 11/24/17 10:56 [id number] 11/24/17 11:20 CS 11/24/17 10:56 Wound Center Nurse 2 #12 R Post LE -Time 11:00 -Correct Patient Yes -Correct Side, Site, Position Yes -Correct Procedure Yes -Procedure Performed Yes -Type of Procedure Debridement -Clinical Debridement Subcutaneous -Post Debridement Size (cm) - Length 3.4 -Post Debridement Size (cm) - Width 1.5 -Post Debridement Size (cm) - Depth 0.3 -Total Square Cm 5.10 -Wound/Ulcer Outcome Not Healed -Ulcer Cleansing Rinsed/ Irrigated with Saline -Foul Odor after Cleansing No -Bioengineered Tissue Yes -Type of bioengineered Tissue EPIFIX -Expiration Date 08/21/22 -Product Lot Number [id number] -Percent Used 50 -Saline Lot Number [id number] -Bleeding Controlled with Pressure -Treatment Response Procedure Tolerated Well #11- RT HEEL -Time 11:00 -Correct Patient Yes -Correct Side, Site, Position Yes -Correct Procedure Yes -Procedure Performed Yes -Type of Procedure Debridement -Clinical Debridement Subcutaneous -Post Debridement Size (cm) - Length 2.0 -Post Debridement Size (cm) - Width 1.3 -Post Debridement Size (cm) - Depth 0.3 -Total Square Cm 2.60 -Wound/Ulcer Outcome Not Healed -Ulcer Cleansing Rinsed/ Irrigated with Saline -Foul Odor after Cleansing No -Bioengineered Tissue Yes -Type of bioengineered Tissue EPIFIX -Expiration Date 08/21/22 -Product Lot Number [id number] -Percent Used 25 -Saline Lot Number [id number] -Bleeding Controlled with Pressure -Treatment Response Procedure Tolerated Well Wound debrided: Right posterior heel Laterality: Right Type of Debridement: Excisional debridement Anesthesia Used: 4% Lidocaine Solution Depth: in the subcutaneous layer Percentage of wound debrided: 100 Instrument Used: #15 blade Tissue Removed: Adherent slough, fibrin, hyperkeratotic tissue Severity: Fat Layer Exposed Amount of bleeding with debridement: Mild Bleeding Controlled with: Pressure Patient tolerated procedure well - Additional Wound Wound debrided: Right posterior calf Laterality: Right Type of Debridement: Excisional debridement Anesthesia Used: 4% Lidocaine Solution Depth: in the subcutaneous layer Percentage of wound debrided: 100 Instrument Used: #15 blade Tissue Removed: Adherent slough, fibrin, hyperkeratotic tissue Severity: Fat Layer Exposed Amount of bleeding with debridement: Mild Bleeding Controlled with: Pressure Patient tolerated procedure: Patient tolerated procedure well Assessment/Plan Assessment: Ulcer to posterior right heel. Plan: Patient was again examined and evaluated in detail today. The aforementioned ulcers were both subcutaneously debrided as noted in the clinical panel again this week. The ulcers were then cleansed with normal sterile saline. The right posterior heel and calf ulcers were then dressed with epifix number 1 to the base, followed by saline, wound veil, steristrips and an offloading dry sterile dressing. If the dressings need reinforced or the top dressing needs changed, the dressing is not to be taken down past the layer of wound veil and steristrips. He was instructed to keep these areas offloaded as much as possible in order to help heal the ulcer sites. He is to continue to use his padded offloading boots with heel cut outs. He completed his prescription of Doxycycline. He was instructed to continue with a diet high in protein to help optimize ulcer healing. He was educated on all signs and symptoms of local and systemic infection and was instructed to go to the ER immediately should he notice any. All questions were answered to the patient's satisfaction. Patient will follow-up in clinic in 1 week for further treatment and evaluation, or sooner if needed.
--- NOTE | 2017-11-24 13:28 | PN.PCM_ITS ---
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 Status: Acute Current Visit: No Code(s): E11.621 - Type 2 diabetes mellitus with foot ulcer; L97.416 - Non-pressure chronic ulcer of right heel and midfoot with bone involvement without evidence of necrosis (5) Chronic incomplete quadriplegia Status: Acute Current Visit: No Code(s): G82.50 - Quadriplegia, unspecified (6) Malnutrition Status: Acute Current Visit: No Code(s): E46 - Unspecified protein-calorie malnutrition Type of Wound Date of Service: 11/24/17 Chief Complaint: Ulcer on right heel History of Wound: This is a 67-year-old white male who presents to the wound care center today for evaluation of a right heel ulcer. He has a past medical history as described above. The patient states that on the night of 06/06/2017, his heel protectors came off all night in bed and shortly after he noted an ulceration on his right heel and a purplish discoloration on his left heel. He states that there has been yellow drainage coming from his right heel and that yesterday he started using Granulex and Aquacel silver on the right heel. He denies any pain or foul-smelling discharge, however he does state that he has decreased sensation to his lower extremities due to his history of a spinal cord injury in high school. He currently has a suprapubic catheter as well due to his history of recurrent UTIs and obstructive uropathy. He also notes that his low air loss hospital bed is needing to be repaired so he is unable to use this at this time. The patient does state that he has a history of ulcerations on his right heel in the past where he had to be seen at a wound care center and ended up needing to have skin substitutes applied. He does note that he lives home alone and that he receives home health throughout the week. Patient was then referred to Dr. Gan at his office, who subsequently admitted the patient on Jul 04, for IV antibiotics and evaluation by ID. Infectious disease planned to d/c patient home on doxy 100mg bid, amoxicillin 500mg tid, and flagyl 500mg tid for planned 6 week course. He has since discharge been receiving daily dressing changes consisting of aquacel ag and a dry sterile dressing as well as wearing his PRAFO boots at all times. He otherwise denies any signs of systemic infection and denies any fever, chills, nausea, vomiting, chest pain or pressure, syncope or presyncopal episodes. Progress of Wound: Patient returns to wound healing center this week for continued treatment of right heel ulcer and right posterior calf ulcer. Patient continues to wear offloading padded boots with heel cut outs over the last week. Patient finished course of doxycycline. He has been undergoing daily dressing changes consisting of Nataly to the right heel and Santyl to the right calf followed by dry sterile dressings, with the help of home health nurses. He denies any purulence to the area. He denies any feeling of nausea, vomiting, fever, or chills currently. - Physical Exam Vital Signs Temp Pulse Resp BP 96.8 F L 71 18 97/57 L 11/24/17 10:33 11/24/17 10:33 11/24/17 10:33 11/24/17 10:33 General: Alert, Oriented x3, Cooperative, No apparent distress Extremities: Capillary Refill Less than 3 Seconds, No Calf Tenderness - Negative Sarah Beth and Pretty sign, Diminished Peripheral Pulses Skin: Ulcer/ Wound - Ulcer right posterior heel with fat layer exposed. Measurements noted below. Patient continues to be a mixture granular tissue, adherent slough, and fibrin with some hyperkeratotic tissue appreciated around the periphery. Ulcers close to the posterior calcaneus. There is no malodor, no purulence, no extending cellulitis, and no significant increase in warmth appreciated to the area. There continues to be no probing to bone, no tracking , no undermining at this time to the ulcer site. Ulcer appreciated right posterior calf with measurements noted below. The base is a mixture of granular tissue, adherent slough, fibrotic tissue. There continues to be no necrotic tissue appreciated at this time today. There is no probing to bone, no tracking, no undermining, no purulence, no malodor, no extending cellulitis, no increase in warmth to the ulcer site at this time. Wound Measurements and Assessment WC - Nurse 1 - General Ulcer Measurement Start: 11/24/17 10:33 Freq: Status: Active Protocol: Activity Type Activity Date Activity User E-Sign Co-Sign Detail Recorded Client Recorded Date Recorded By Document 11/24/17 10:33 [facility] [id number] 11/24/17 10:37 [facility] 11/24/17 10:33 Wound Center Nurse 1 [Ulcer Assessment] #12 R Post LE -Combined with other wound No -Current Size (cm) - Length 4 -Current Size (cm) - Width 1.5 -Current Size (cm) - Depth 0.3 -Total Square Cm 6.0 -Photo Taken No -Epithelialization None Present -Tunneling No -Undermining/Tunneling No -Circular Undermining No -Exudate Amt Medium (34-66%) -Exudate Type Serosanguineous -Wound Margin Distinct, Outline Attached -Granulation Amt Small (1-33%) -Granulation Quality Red -Slough/Fibrin Yes -Necrosis Amt Large (67-100%) -Necrotic Tissue Type Eschar -Structure Exposed Fascia Fat Layer Exposed -Texture (Francia-wound Skin Appearance) Excoriation Scarring -Moisture (Francia-wound Skin Appearance Assessed ) -Color (Francia-wound Skin Appearance) Erythema -Temperature (Francia-wound Skin No Abnormality Appearance) (Pt Warm) -Tenderness on Palpation (Francia-wound No Skin Appearance) -Ulcer Cleansing Rinsed/ Irrigated with Saline -Foul Odor after Cleansing No -Anesthetic Used 4% Lidocaine Solution #11- RT HEEL -Combined with other wound No -Current Size (cm) - Length 2 -Current Size (cm) - Width 1.2 -Current Size (cm) - Depth 0.1 -Total Square Cm 2.4 -Photo Taken No -Epithelialization None Present -Tunneling No -Undermining/Tunneling No -Circular Undermining No -Exudate Amt Medium (34-66%) -Exudate Type Serosanguineous -Wound Margin Distinct, Outline Attached -Granulation Amt Large (67-100%) -Granulation Quality Pale Murillo -Necrosis Amt Small (1-33%) -Necrotic Tissue Type Adherent Slough -Texture (Francia-wound Skin Appearance) Callus Scarring -Moisture (Francia-wound Skin Appearance Assessed ) -Color (Francia-wound Skin Appearance) Assessed -Temperature (Francia-wound Skin No Abnormality Appearance) (Pt Warm) -Tenderness on Palpation (Francia-wound No Skin Appearance) -Ulcer Cleansing Rinsed/ Irrigated with Saline -Foul Odor after Cleansing No -Anesthetic Used 4% Lidocaine Solution WC - Nurse 2 - General Ulcer CM Notes Start: 11/24/17 10:33 Freq: Status: Active Protocol: Activity Type Activity Date Activity User E-Sign Co-Sign Detail Recorded Client Recorded Date Recorded By Document 11/24/17 10:56 [id number] 11/24/17 11:20 [facility] 11/24/17 10:56 Wound Center Nurse 2 [Procedure/Treatment] #12 R Post LE -Time 11:00 -Correct Patient Yes -Correct Side, Site, Position Yes -Correct Procedure Yes -Procedure Performed Yes -Type of Procedure Debridement -Clinical Debridement Subcutaneous -Post Debridement Size (cm) - Length 3.4 -Post Debridement Size (cm) - Width 1.5 -Post Debridement Size (cm) - Depth 0.3 -Total Square Cm 5.10 -Wound/Ulcer Outcome Not Healed -Ulcer Cleansing Rinsed/ Irrigated with Saline -Foul Odor after Cleansing No -Bioengineered Tissue Yes -Type of bioengineered Tissue EPIFIX -Expiration Date 08/21/22 -Product Lot Number [id number] -Percent Used 50 -Saline Lot Number [id number] -Bleeding Controlled with Pressure -Treatment Response Procedure Tolerated Well #11- RT HEEL -Time 11:00 -Correct Patient Yes -Correct Side, Site, Position Yes -Correct Procedure Yes -Procedure Performed Yes -Type of Procedure Debridement -Clinical Debridement Subcutaneous -Post Debridement Size (cm) - Length 2.0 -Post Debridement Size (cm) - Width 1.3 -Post Debridement Size (cm) - Depth 0.3 -Total Square Cm 2.60 -Wound/Ulcer Outcome Not Healed -Ulcer Cleansing Rinsed/ Irrigated with Saline -Foul Odor after Cleansing No -Bioengineered Tissue Yes -Type of bioengineered Tissue EPIFIX -Expiration Date 08/21/22 -Product Lot Number [id number] -Percent Used 25 -Saline Lot Number [id number] -Bleeding Controlled with Pressure -Treatment Response Procedure Tolerated Well [See Physician Procedure note for Specifics] Musculoskeletal: No Tenderness to Palpation of Joints or Extremities, Muscle Wasting Neurological: - - Patient is an incomplete quadriplegic with very slight sensation to certain areas of the lower extremity Psych/Mental Status: Normal Affect, Appropriate Debridement Note Post-Debridement Measurements/Treatment WC - Nurse 2 - General Ulcer CM Notes Start: 11/24/17 10:33 Freq: Status: Active Protocol: Activity Type Activity Date Activity User E-Sign Co-Sign Detail Recorded Client Recorded Date Recorded By Document 11/24/17 10:56 [id number] 11/24/17 11:20 CS 11/24/17 10:56 Wound Center Nurse 2 #12 R Post LE -Time 11:00 -Correct Patient Yes -Correct Side, Site, Position Yes -Correct Procedure Yes -Procedure Performed Yes -Type of Procedure Debridement -Clinical Debridement Subcutaneous -Post Debridement Size (cm) - Length 3.4 -Post Debridement Size (cm) - Width 1.5 -Post Debridement Size (cm) - Depth 0.3 -Total Square Cm 5.10 -Wound/Ulcer Outcome Not Healed -Ulcer Cleansing Rinsed/ Irrigated with Saline -Foul Odor after Cleansing No -Bioengineered Tissue Yes -Type of bioengineered Tissue EPIFIX -Expiration Date 08/21/22 -Product Lot Number [id number] -Percent Used 50 -Saline Lot Number [id number] -Bleeding Controlled with Pressure -Treatment Response Procedure Tolerated Well #11- RT HEEL -Time 11:00 -Correct Patient Yes -Correct Side, Site, Position Yes -Correct Procedure Yes -Procedure Performed Yes -Type of Procedure Debridement -Clinical Debridement Subcutaneous -Post Debridement Size (cm) - Length 2.0 -Post Debridement Size (cm) - Width 1.3 -Post Debridement Size (cm) - Depth 0.3 -Total Square Cm 2.60 -Wound/Ulcer Outcome Not Healed -Ulcer Cleansing Rinsed/ Irrigated with Saline -Foul Odor after Cleansing No -Bioengineered Tissue Yes -Type of bioengineered Tissue EPIFIX -Expiration Date 08/21/22 -Product Lot Number [id number] -Percent Used 25 -Saline Lot Number [id number] -Bleeding Controlled with Pressure -Treatment Response Procedure Tolerated Well Wound debrided: Right posterior heel Laterality: Right Type of Debridement: Excisional debridement Anesthesia Used: 4% Lidocaine Solution Depth: in the subcutaneous layer Percentage of wound debrided: 100 Instrument Used: #15 blade Tissue Removed: Adherent slough, fibrin, hyperkeratotic tissue Severity: Fat Layer Exposed Amount of bleeding with debridement: Mild Bleeding Controlled with: Pressure Patient tolerated procedure well - Additional Wound Wound debrided: Right posterior calf Laterality: Right Type of Debridement: Excisional debridement Anesthesia Used: 4% Lidocaine Solution Depth: in the subcutaneous layer Percentage of wound debrided: 100 Instrument Used: #15 blade Tissue Removed: Adherent slough, fibrin, hyperkeratotic tissue Severity: Fat Layer Exposed Amount of bleeding with debridement: Mild Bleeding Controlled with: Pressure Patient tolerated procedure: Patient tolerated procedure well Assessment/Plan Assessment: Ulcer to posterior right heel. Plan: Patient was again examined and evaluated in detail today. The aforementioned ulcers were both subcutaneously debrided as noted in the clinical panel again this week. The ulcers were then cleansed with normal sterile saline. The right posterior heel and calf ulcers were then dressed with epifix number 1 to the base, followed by saline, wound veil, steristrips and an offloading dry sterile dressing. If the dressings need reinforced or the top dressing needs changed, the dressing is not to be taken down past the layer of wound veil and steristrips. He was instructed to keep these areas offloaded as much as possible in order to help heal the ulcer sites. He is to continue to use his padded offloading boots with heel cut outs. He completed his prescription of Doxycycline. He was instructed to continue with a diet high in protein to help optimize ulcer healing. He was educated on all signs and symptoms of local and systemic infection and was instructed to go to the ER immediately should he notice any. All questions were answered to the patient's satisfaction. Patient will follow-up in clinic in 1 week for further treatment and evaluation, or sooner if needed.
[2017-12-01 11:21] VITALS: BP 103/66; PULSE 63; RESP 16; TEMP 36; BMI 26.6
--- NOTE | 2017-12-01 12:12 | PN.PCM_ITS ---
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 Status: Acute Current Visit: No Code(s): E11.621 - Type 2 diabetes mellitus with foot ulcer; L97.416 - Non-pressure chronic ulcer of right heel and midfoot with bone involvement without evidence of necrosis (5) Chronic incomplete quadriplegia Status: Acute Current Visit: No Code(s): G82.50 - Quadriplegia, unspecified (6) Malnutrition Status: Acute Current Visit: No Code(s): E46 - Unspecified protein-calorie malnutrition Type of Wound Date of Service: 12/01/17 Chief Complaint: Ulcer on right heel History of Wound: This is a 67-year-old white male who presents to the wound care center today for evaluation of a right heel ulcer. He has a past medical history as described above. The patient states that on the night of 06/06/2017, his heel protectors came off all night in bed and shortly after he noted an ulceration on his right heel and a purplish discoloration on his left heel. He states that there has been yellow drainage coming from his right heel and that yesterday he started using Granulex and Aquacel silver on the right heel. He denies any pain or foul-smelling discharge, however he does state that he has decreased sensation to his lower extremities due to his history of a spinal cord injury in high school. He currently has a suprapubic catheter as well due to his history of recurrent UTIs and obstructive uropathy. He also notes that his low air loss hospital bed is needing to be repaired so he is unable to use this at this time. The patient does state that he has a history of ulcerations on his right heel in the past where he had to be seen at a wound care center and ended up needing to have skin substitutes applied. He does note that he lives home alone and that he receives home health throughout the week. Patient was then referred to Dr. Gan at his office, who subsequently admitted the patient on Jul 04, for IV antibiotics and evaluation by ID. Infectious disease planned to d/c patient home on doxy 100mg bid, amoxicillin 500mg tid, and flagyl 500mg tid for planned 6 week course. He has since discharge been receiving daily dressing changes consisting of aquacel ag and a dry sterile dressing as well as wearing his PRAFO boots at all times. He otherwise denies any signs of systemic infection and denies any fever, chills, nausea, vomiting, chest pain or pressure, syncope or presyncopal episodes. Progress of Wound: Patient returns to wound healing center this week for continued treatment of right heel ulcer and right posterior calf ulcer. Patient continues to wear offloading padded boots with heel cut outs over the last week. He has kept his dressing intact since last visit. He denies any purulence to the area. He denies any feeling of nausea, vomiting, fever, or chills currently. - Physical Exam Vital Signs Temp Pulse Resp BP 96.8 F L 63 16 103/66 12/01/17 11:21 12/01/17 11:21 12/01/17 11:21 12/01/17 11:21 General: Alert, Oriented x3, Cooperative, No apparent distress Extremities: Capillary Refill Less than 3 Seconds, No Calf Tenderness - Negative Sarah Beth and Pretty sign, Diminished Peripheral Pulses Skin: Ulcer/ Wound - Ulcer to right posterior heel fat layer exposed. Measurements are noted below. There is an improvement in appearance since last week. There is still a mixture of granular tissue adherent slough, and fibrin with some surrounding hyperkeratotic tissue noted to the ulcer site. The ulcer is close to the calcaneus. There continues to be no malodor, no purulence, no extending cellulitis, and no significant increased warmth appreciated to this area. There continues to be no probing to bone, no tracking, no undermining noted. Ulcer to the right posterior calf. Measurements are noted below. The base continues to be a mixture of granular tissue, adherent slough, fibrotic tissue as well as some slight surrounding hyperkeratotic tissue. There continues to be no probing to bone, no tracking, no undermining, no purulence, no malodor, no extending cellulitis, no increased warmth to the ulcer site. Wound Measurements and Assessment WC - Nurse 1 - General Ulcer Measurement Start: 11/24/17 10:33 Freq: Status: Active Protocol: Activity Type Activity Date Activity User E-Sign Co-Sign Detail Recorded Client Recorded Date Recorded By Document 12/01/17 11:21 [id number] 12/01/17 11:38 12/01/17 11:21 Wound Center Nurse 1 [Ulcer Assessment] #12 R Post LE -Combined with other wound No -Current Size (cm) - Length 2.7 -Current Size (cm) - Width 0.9 -Current Size (cm) - Depth 0.3 -Total Square Cm 2.43 -Photo Taken No -Epithelialization None Present -Tunneling No -Undermining/Tunneling No -Circular Undermining No -Exudate Amt Large (67-100%) -Exudate Type Serosanguineous -Wound Margin Distinct, Outline Attached -Granulation Amt Small (1-33%) -Granulation Quality Red -Slough/Fibrin Yes -Necrosis Amt Medium (34-66%) -Texture (Francia-wound Skin Appearance) Assessed -Moisture (Francia-wound Skin Appearance Assessed ) -Temperature (Francia-wound Skin No Abnormality Appearance) (Pt Warm) -Tenderness on Palpation (Francia-wound No Skin Appearance) -Ulcer Cleansing Rinsed/ Irrigated with Saline -Foul Odor after Cleansing No -Anesthetic Used 4% Lidocaine Solution #11- RT HEEL -Combined with other wound No -Current Size (cm) - Length 0.7 -Current Size (cm) - Width 0.6 -Current Size (cm) - Depth 0.1 -Total Square Cm 0.42 -Photo Taken No -Epithelialization Small 1-33% -Tunneling No -Undermining/Tunneling No -Circular Undermining No -Exudate Amt Small (1-33%) -Exudate Type Serosanguineous -Wound Margin Thickened -Granulation Quality [place] -Necrosis Amt Medium (34-66%) -Texture (Francia-wound Skin Appearance) Assessed -Color (Francia-wound Skin Appearance) Erythema -Temperature (Francia-wound Skin No Abnormality Appearance) (Pt Warm) -Tenderness on Palpation (Francia-wound No Skin Appearance) -Ulcer Cleansing Rinsed/ Irrigated with Saline -Foul Odor after Cleansing No -Anesthetic Used 4% Lidocaine Solution [Edema Assessment] -Lower Limb Edema Present NA WC - Nurse 2 - General Ulcer CM Notes Start: 11/24/17 10:33 Freq: Status: Active Protocol: Activity Type Activity Date Activity User E-Sign Co-Sign Detail Recorded Client Recorded Date Recorded By Document 12/01/17 11:42 CS [id number] 12/01/17 12:03 CS 12/01/17 11:42 Wound Center Nurse 2 [Procedure/Treatment] #12 R Post LE -Time 11:42 -Correct Patient Yes -Correct Side, Site, Position Yes -Correct Procedure Yes -Procedure Performed Yes -Type of Procedure Debridement -Clinical Debridement Subcutaneous -Post Debridement Size (cm) - Length 3.0 -Post Debridement Size (cm) - Width 1.1 -Post Debridement Size (cm) - Depth 0.3 -Total Square Cm 3.30 -Wound/Ulcer Outcome Not Healed -Ulcer Cleansing Not Cleansed -Foul Odor after Cleansing No -Bioengineered Tissue Yes -Type of bioengineered Tissue EPIFIX -Bleeding Controlled with Pressure -Treatment Response Procedure Tolerated Well #11- RT HEEL -Time 11:43 -Correct Patient Yes -Correct Side, Site, Position Yes -Correct Procedure Yes -Procedure Performed Yes -Type of Procedure Debridement -Clinical Debridement Subcutaneous -Post Debridement Size (cm) - Length 1.0 -Post Debridement Size (cm) - Width 0.9 -Post Debridement Size (cm) - Depth 0.1 -Total Square Cm 0.90 -Wound/Ulcer Outcome Not Healed -Ulcer Cleansing Not Cleansed -Foul Odor after Cleansing No -Bioengineered Tissue Yes -Type of bioengineered Tissue EPIFIX -Bleeding Controlled with Pressure -Treatment Response Procedure Tolerated Well [See Physician Procedure note for Specifics] Pain Scale: 0-10 Numeric [Pain] -Is Patient Pain Free? Yes Musculoskeletal: No Tenderness to Palpation of Joints or Extremities, Muscle Wasting Neurological: - - Patient is an incomplete quadriplegic with very slight sensation to some areas and lower extremity Psych/Mental Status: Normal Affect, Appropriate Debridement Note Post-Debridement Measurements/Treatment CHANTELLE - Nurse 2 - General Ulcer CM Notes Start: 11/24/17 10:33 Freq: Status: Active Protocol: Activity Type Activity Date Activity User E-Sign Co-Sign Detail Recorded Client Recorded Date Recorded By Document 11/24/17 10:56 [id number] 11/24/17 11:20 CS Document 12/01/17 11:42 [id number] 12/01/17 12:03 CS 11/24/17 12/01/17 10:56 11:42 Wound Center Nurse 2 #12 R Post LE -Time 11:00 11:42 -Correct Patient Yes Yes -Correct Side, Site, Position Yes Yes -Correct Procedure Yes Yes -Procedure Performed Yes Yes -Type of Procedure Debridement Debridement -Clinical Debridement Subcutaneous Subcutaneous -Post Debridement Size (cm) - Length 3.4 3.0 -Post Debridement Size (cm) - Width 1.5 1.1 -Post Debridement Size (cm) - Depth 0.3 0.3 -Total Square Cm 5.10 3.30 -Wound/Ulcer Outcome Not Healed Not Healed -Ulcer Cleansing Rinsed/ Not Cleansed Irrigated with Saline -Foul Odor after Cleansing No No -Bioengineered Tissue Yes Yes -Type of bioengineered Tissue EPIFIX EPIFIX -Expiration Date 08/21/22 -Product Lot Number [id number] -Percent Used 50 -Saline Lot Number [id number] -Bleeding Controlled with Pressure Pressure -Treatment Response Procedure Procedure Tolerated Well Tolerated Well #11- RT HEEL -Time 11:00 11:43 -Correct Patient Yes Yes -Correct Side, Site, Position Yes Yes -Correct Procedure Yes Yes -Procedure Performed Yes Yes -Type of Procedure Debridement Debridement -Clinical Debridement Subcutaneous Subcutaneous -Post Debridement Size (cm) - Length 2.0 1.0 -Post Debridement Size (cm) - Width 1.3 0.9 -Post Debridement Size (cm) - Depth 0.3 0.1 -Total Square Cm 2.60 0.90 -Wound/Ulcer Outcome Not Healed Not Healed -Ulcer Cleansing Rinsed/ Not Cleansed Irrigated with Saline -Foul Odor after Cleansing No No -Bioengineered Tissue Yes Yes -Type of bioengineered Tissue EPIFIX EPIFIX -Expiration Date 08/21/22 -Product Lot Number [id number] -Percent Used 25 -Saline Lot Number [id number] -Bleeding Controlled with Pressure Pressure -Treatment Response Procedure Procedure Tolerated Well Tolerated Well Pain Scale: 0-10 Numeric Is Patient Pain Free? Yes Wound debrided: Right posterior heel Laterality: Right Type of Debridement: Excisional debridement Anesthesia Used: 4% Lidocaine Solution Depth: in the subcutaneous layer Percentage of wound debrided: 100 Instrument Used: #15 blade Tissue Removed: Adherent slough, fibrin, hyperkeratotic tissue Severity: Fat Layer Exposed Amount of bleeding with debridement: Mild Bleeding Controlled with: Pressure Patient tolerated procedure well - Additional Wound Wound debrided: Right posterior calf Laterality: Right Type of Debridement: Excisional debridement Anesthesia Used: 4% Lidocaine Solution Depth: in the subcutaneous layer Percentage of wound debrided: 100 Instrument Used: #15 blade Tissue Removed: Adherent slough, fibrin, hyperkeratotic tissue Severity: Fat Layer Exposed Amount of bleeding with debridement: Mild Bleeding Controlled with: Pressure Patient tolerated procedure: Patient tolerated procedure well Assessment/Plan Assessment: Ulcer to posterior right heel. Plan: Patient was again examined and evaluated in detail today. The aforementioned ulcers were both subcutaneously debrided as noted in the clinical panel again this week. The ulcers were then cleansed with normal sterile saline. The right posterior heel and calf ulcers were then dressed with epifix number 2 to the bases, followed by saline, wound veil, steristrips and an offloading dry sterile dressing. If the dressings need reinforced or the top dressing needs changed, the dressing is not to be taken down past the layer of wound veil and steristrips. He was instructed to keep these areas offloaded as much as possible in order to help heal the ulcer sites. He is to continue to use his padded offloading boots with heel cut outs. He completed his prescription of Doxycycline. He was instructed to continue with a diet high in protein to help optimize ulcer healing. He was educated on all signs and symptoms of local and systemic infection and was instructed to go to the ER immediately should he notice any. All questions were answered to the patient's satisfaction. Patient will follow-up in clinic in 1 week for further treatment and evaluation, or sooner if needed.
[2017-12-08 11:41] VITALS: BP 107/59; PULSE 69; RESP 18; TEMP 36.3; BMI 26.6
--- NOTE | 2017-12-08 12:19 | PCM.WC.PN ---
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 Status: Acute Current Visit: No Code(s): E11.621 - Type 2 diabetes mellitus with foot ulcer; L97.416 - Non-pressure chronic ulcer of right heel and midfoot with bone involvement without evidence of necrosis (5) Chronic incomplete quadriplegia Status: Acute Current Visit: No Code(s): G82.50 - Quadriplegia, unspecified (6) Malnutrition Status: Acute Current Visit: No Code(s): E46 - Unspecified protein-calorie malnutrition Type of Wound Date of Service: 12/08/17 Chief Complaint: Ulcer on right heel History of Wound: This is a 67-year-old white male who presents to the wound care center today for evaluation of a right heel ulcer. He has a past medical history as described above. The patient states that on the night of 06/06/2017, his heel protectors came off all night in bed and shortly after he noted an ulceration on his right heel and a purplish discoloration on his left heel. He states that there has been yellow drainage coming from his right heel and that yesterday he started using Granulex and Aquacel silver on the right heel. He denies any pain or foul-smelling discharge, however he does state that he has decreased sensation to his lower extremities due to his history of a spinal cord injury in high school. He currently has a suprapubic catheter as well due to his history of recurrent UTIs and obstructive uropathy. He also notes that his low air loss hospital bed is needing to be repaired so he is unable to use this at this time. The patient does state that he has a history of ulcerations on his right heel in the past where he had to be seen at a wound care center and ended up needing to have skin substitutes applied. He does note that he lives home alone and that he receives home health throughout the week. Patient was then referred to Dr. Gan at his office, who subsequently admitted the patient on Jul 04, for IV antibiotics and evaluation by ID. Infectious disease planned to d/c patient home on doxy 100mg bid, amoxicillin 500mg tid, and flagyl 500mg tid for planned 6 week course. He has since discharge been receiving daily dressing changes consisting of aquacel ag and a dry sterile dressing as well as wearing his PRAFO boots at all times. He otherwise denies any signs of systemic infection and denies any fever, chills, nausea, vomiting, chest pain or pressure, syncope or presyncopal episodes. Progress of Wound: Patient returns to wound healing center this week for continued treatment of right heel ulcer and right posterior calf ulcer. Patient continues to wear offloading padded boots with heel cut outs over the last week. He has kept his dressing intact since last visit. He denies any purulence to the area. He denies any feeling of nausea, vomiting, fever, or chills currently. - Physical Exam Vital Signs Temp Pulse Resp BP 97.3 F L 69 18 107/59 L 12/08/17 11:41 12/08/17 11:41 12/08/17 11:41 12/08/17 11:41 General: Alert, Oriented x3, Cooperative, No apparent distress Extremities: Capillary Refill Less than 3 Seconds, No Calf Tenderness - Negative Sarah Beth and Pretty sign, Diminished Peripheral Pulses Skin: Ulcer/ Wound - Ulcer to right posterior heel with fat layer exposed. Measurements are noted below. There appears to be another slight improvement again this week. There continues to be a mixture of granular tissue, adherent slough, fibrin as well as some slight surrounding hyperkeratotic tissue appreciated. The ulcer is close to the calcaneus. There continues to be no malodor, no purulence, no extending cellulitis, and no significant increase in warmth appreciated around the area at this time. There is no probing to bone. No tracking, no undermining noted at this time. Ulcer to the right posterior calf with measurements noted below. The base again continues to be a mixture of granular tissue, adherent slough, fibrotic tissue as well as some surrounding hyperkeratotic tissue. There continues to be no probing to bone, no tracking, no undermining, no purulence, no malodor, no ascending cellulitis, no increase in warmth to this ulcer site as well. Wound Measurements and Assessment WC - Nurse 1 - General Ulcer Measurement Start: 11/24/17 10:33 Freq: Status: Active Protocol: Activity Type Activity Date Activity User E-Sign Co-Sign Detail Recorded Client Recorded Date Recorded By Document 12/08/17 11:41 [id number] 12/08/17 11:44 12/08/17 11:41 Wound Center Nurse 1 [Ulcer Assessment] #12 R Post LE -Combined with other wound No -Current Size (cm) - Length 3.0 -Current Size (cm) - Width 1.4 -Current Size (cm) - Depth 0.3 -Total Square Cm 4.20 -Photo Taken No -Epithelialization None Present -Tunneling No -Undermining/Tunneling No -Circular Undermining No -Classification - Thickness Full Thickness without Exposed Support Structure -Exudate Amt Small (1-33%) -Exudate Type Serosanguineous -Wound Margin Distinct, Outline Attached -Granulation Amt Large (67-100%) -Granulation Quality Red -Slough/Fibrin Yes -Necrosis Amt Small (1-33%) -Necrotic Tissue Type Adherent Slough -Structure Exposed Fascia Fat Layer Exposed -Texture (Francia-wound Skin Appearance) No Abnormality Assessed -Moisture (Francia-wound Skin Appearance No Abnormality ) Assessed -Color (Francia-wound Skin Appearance) Assessed Erythema -Temperature (Francia-wound Skin No Abnormality Appearance) (Pt Warm) -Tenderness on Palpation (Francia-wound No Skin Appearance) -Ulcer Cleansing Rinsed/ Irrigated with Saline -Foul Odor after Cleansing No -Anesthetic Used 5% Lidocaine Gel #11- RT HEEL -Combined with other wound No -Current Size (cm) - Length 1.5 -Current Size (cm) - Width 1.0 -Current Size (cm) - Depth 0.1 -Total Square Cm 1.50 -Photo Taken No -Epithelialization Small 1-33% -Tunneling No -Undermining/Tunneling No -Circular Undermining No -Classification - Thickness Full Thickness without Exposed Support Structure -Exudate Amt Small (1-33%) -Exudate Type Serosanguineous -Wound Margin Distinct, Outline Attached -Granulation Amt Medium (34-66%) -Granulation Quality Red -Slough/Fibrin Yes -Necrosis Amt Small (1-33%) -Necrotic Tissue Type Adherent Slough -Structure Exposed Fascia Fat Layer Exposed -Texture (Francia-wound Skin Appearance) Callus Scarring -Moisture (Francia-wound Skin Appearance Dry/Scaly ) -Color (Francia-wound Skin Appearance) No Abnormality Assessed -Temperature (Francia-wound Skin No Abnormality Appearance) (Pt Warm) -Tenderness on Palpation (Francia-wound No Skin Appearance) -Ulcer Cleansing Rinsed/ Irrigated with Saline -Foul Odor after Cleansing No -Anesthetic Used 5% Lidocaine Gel [Edema Assessment] -Lower Limb Edema Present No WC - Nurse 2 - General Ulcer CM Notes Start: 11/24/17 10:33 Freq: Status: Active Protocol: Activity Type Activity Date Activity User E-Sign Co-Sign Detail Recorded Client Recorded Date Recorded By Document 12/08/17 11:59 [id number] 12/08/17 12:12 CS 12/08/17 11:59 Wound Center Nurse 2 [Procedure/Treatment] #12 R Post LE -Time 12:04 -Correct Patient Yes -Correct Side, Site, Position Yes -Correct Procedure Yes -Procedure Performed Yes -Type of Procedure Debridement -Clinical Debridement Subcutaneous -Post Debridement Size (cm) - Length 2.8 -Post Debridement Size (cm) - Width 1.4 -Post Debridement Size (cm) - Depth 0.3 -Total Square Cm 3.92 -Wound/Ulcer Outcome Not Healed -Ulcer Cleansing Rinsed/ Irrigated with Saline -Foul Odor after Cleansing No -Bioengineered Tissue No -Type of bioengineered Tissue EPIFIX -Expiration Date 08/21/22 -Product Lot Number [id number] -Percent Used 75 -Saline Lot Number [id number] -Bleeding Controlled with Pressure -Treatment Response Procedure Tolerated Well #11- RT HEEL -Time 12:04 -Correct Patient Yes -Correct Side, Site, Position Yes -Correct Procedure Yes -Procedure Performed Yes -Type of Procedure Debridement -Clinical Debridement Subcutaneous -Post Debridement Size (cm) - Length 1.4 -Post Debridement Size (cm) - Width 1.4 -Post Debridement Size (cm) - Depth 0.1 -Total Square Cm 1.96 -Wound/Ulcer Outcome Not Healed -Ulcer Cleansing Not Cleansed -Foul Odor after Cleansing No -Bioengineered Tissue Yes -Type of bioengineered Tissue EPIFIX -Expiration Date 08/21/22 -Product Lot Number [id number] -Percent Used 25 -Saline Lot Number [id number] -Bleeding Controlled with Pressure -Treatment Response Procedure Tolerated Well [See Physician Procedure note for Specifics] Pain Scale: 0-10 Numeric [Pain] -Is Patient Pain Free? Yes Musculoskeletal: No Tenderness to Palpation of Joints or Extremities, Muscle Wasting Neurological: - - Patient is an incomplete quadriplegic with very slight sensation to some areas of the lower extremity Psych/Mental Status: Normal Affect, Appropriate Debridement Note Post-Debridement Measurements/Treatment WC - Nurse 2 - General Ulcer CM Notes Start: 11/24/17 10:33 Freq: Status: Active Protocol: Activity Type Activity Date Activity User E-Sign Co-Sign Detail Recorded Client Recorded Date Recorded By Document 11/24/17 10:56 [id number] 11/24/17 11:20 Document 12/01/17 11:42 [id number] 12/01/17 12:03 CS Document 12/08/17 11:59 [id number] 12/08/17 12:12 11/24/17 12/01/17 12/08/17 10:56 11:42 11:59 Wound Center Nurse 2 #12 R Post LE -Time 11:00 11:42 12:04 -Correct Patient Yes Yes Yes -Correct Side, Site, Position Yes Yes Yes -Correct Procedure Yes Yes Yes -Procedure Performed Yes Yes Yes -Type of Procedure Debridement Debridement Debridement -Clinical Debridement Subcutaneous Subcutaneous Subcutaneous -Post Debridement Size (cm) - Length 3.4 3.0 2.8 -Post Debridement Size (cm) - Width 1.5 1.1 1.4 -Post Debridement Size (cm) - Depth 0.3 0.3 0.3 -Total Square Cm 5.10 3.30 3.92 -Wound/Ulcer Outcome Not Healed Not Healed Not Healed -Ulcer Cleansing Rinsed/ Not Cleansed Rinsed/ Irrigated with Irrigated with Saline Saline -Foul Odor after Cleansing No No No -Bioengineered Tissue Yes Yes No -Type of bioengineered Tissue EPIFIX EPIFIX EPIFIX -Expiration Date 08/21/22 08/21/22 08/21/22 -Product Lot Number [id number] -Percent Used 50 75 75 -Saline Lot Number [id number] -Bleeding Controlled with Pressure Pressure Pressure -Treatment Response Procedure Procedure Procedure Tolerated Well Tolerated Well Tolerated Well #11- RT HEEL -Time 11:00 11:43 12:04 -Correct Patient Yes Yes Yes -Correct Side, Site, Position Yes Yes Yes -Correct Procedure Yes Yes Yes -Procedure Performed Yes Yes Yes -Type of Procedure Debridement Debridement Debridement -Clinical Debridement Subcutaneous Subcutaneous Subcutaneous -Post Debridement Size (cm) - Length 2.0 1.0 1.4 -Post Debridement Size (cm) - Width 1.3 0.9 1.4 -Post Debridement Size (cm) - Depth 0.3 0.1 0.1 -Total Square Cm 2.60 0.90 1.96 -Wound/Ulcer Outcome Not Healed Not Healed Not Healed -Ulcer Cleansing Rinsed/ Not Cleansed Not Cleansed Irrigated with Saline -Foul Odor after Cleansing No No No -Bioengineered Tissue Yes Yes Yes -Type of bioengineered Tissue EPIFIX EPIFIX EPIFIX -Expiration Date 08/21/22 08/21/22 08/21/22 -Product Lot Number [id number] -Percent Used 25 75 25 -Saline Lot Number [id number] -Bleeding Controlled with Pressure Pressure Pressure -Treatment Response Procedure Procedure Procedure Tolerated Well Tolerated Well Tolerated Well Pain Scale: 0-10 Numeric Is Patient Pain Free? Yes Yes Wound debrided: Right posterior heel Laterality: Right Type of Debridement: Excisional debridement Anesthesia Used: 4% Lidocaine Solution Depth: in the subcutaneous layer Percentage of wound debrided: 100 Instrument Used: #15 blade Tissue Removed: Adherent slough, fibrin, hyperkeratotic tissue Severity: Fat Layer Exposed Amount of bleeding with debridement: Mild Bleeding Controlled with: Pressure Patient tolerated procedure well - Additional Wound Wound debrided: Right posterior calf Laterality: Right Type of Debridement: Excisional debridement Anesthesia Used: 4% Lidocaine Solution Depth: in the subcutaneous layer Percentage of wound debrided: 100 Instrument Used: 5mm curette Tissue Removed: Adherent slough, fibrin, hyperkeratotic tissue Severity: Fat Layer Exposed Amount of bleeding with debridement: Mild Bleeding Controlled with: Pressure Patient tolerated procedure: Patient tolerated procedure well Assessment/Plan Assessment: Ulcer to posterior right heel. Plan: Patient was again examined and evaluated in detail today. The aforementioned ulcers were both subcutaneously debrided as noted in the clinical panel again this week. The ulcers were then cleansed with normal sterile saline. The right posterior heel and calf ulcers were then dressed with epifix number 3 to the bases, followed by saline, wound veil, steristrips and an offloading dry sterile dressing. If the dressings need reinforced or the top dressing needs changed, the dressing is not to be taken down past the layer of wound veil and steristrips. He was instructed to keep these areas offloaded as much as possible in order to help heal the ulcer sites. He is to continue to use his padded offloading boots with heel cut outs. He completed his prescription of Doxycycline. He was instructed to continue with a diet high in protein to help optimize ulcer healing. He was educated on all signs and symptoms of local and systemic infection and was instructed to go to the ER immediately should he notice any. All questions were answered to the patient's satisfaction. Patient will follow-up in clinic in 1 week for further treatment and evaluation, or sooner if needed.
--- NOTE | 2017-12-08 12:26 | PN.PCM_ITS ---
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 Status: Acute Current Visit: No Code(s): E11.621 - Type 2 diabetes mellitus with foot ulcer; L97.416 - Non-pressure chronic ulcer of right heel and midfoot with bone involvement without evidence of necrosis (5) Chronic incomplete quadriplegia Status: Acute Current Visit: No Code(s): G82.50 - Quadriplegia, unspecified (6) Malnutrition Status: Acute Current Visit: No Code(s): E46 - Unspecified protein-calorie malnutrition Type of Wound Date of Service: 12/08/17 Chief Complaint: Ulcer on right heel History of Wound: This is a 67-year-old white male who presents to the wound care center today for evaluation of a right heel ulcer. He has a past medical history as described above. The patient states that on the night of 06/06/2017, his heel protectors came off all night in bed and shortly after he noted an ulceration on his right heel and a purplish discoloration on his left heel. He states that there has been yellow drainage coming from his right heel and that yesterday he started using Granulex and Aquacel silver on the right heel. He denies any pain or foul-smelling discharge, however he does state that he has decreased sensation to his lower extremities due to his history of a spinal cord injury in high school. He currently has a suprapubic catheter as well due to his history of recurrent UTIs and obstructive uropathy. He also notes that his low air loss hospital bed is needing to be repaired so he is unable to use this at this time. The patient does state that he has a history of ulcerations on his right heel in the past where he had to be seen at a wound care center and ended up needing to have skin substitutes applied. He does note that he lives home alone and that he receives home health throughout the week. Patient was then referred to Dr. Gan at his office, who subsequently admitted the patient on Jul 04, for IV antibiotics and evaluation by ID. Infectious disease planned to d/c patient home on doxy 100mg bid, amoxicillin 500mg tid, and flagyl 500mg tid for planned 6 week course. He has since discharge been receiving daily dressing changes consisting of aquacel ag and a dry sterile dressing as well as wearing his PRAFO boots at all times. He otherwise denies any signs of systemic infection and denies any fever, chills, nausea, vomiting, chest pain or pressure, syncope or presyncopal episodes. Progress of Wound: Patient returns to wound healing center this week for continued treatment of right heel ulcer and right posterior calf ulcer. Patient continues to wear offloading padded boots with heel cut outs over the last week. He has kept his dressing intact since last visit. He denies any purulence to the area. He denies any feeling of nausea, vomiting, fever, or chills currently. - Physical Exam Vital Signs Temp Pulse Resp BP 97.3 F L 69 18 107/59 L 12/08/17 11:41 12/08/17 11:41 12/08/17 11:41 12/08/17 11:41 General: Alert, Oriented x3, Cooperative, No apparent distress Extremities: Capillary Refill Less than 3 Seconds, No Calf Tenderness - Negative Sarah Beth and Pretty sign, Diminished Peripheral Pulses Skin: Ulcer/ Wound - Ulcer to right posterior heel with fat layer exposed. Measurements are noted below. There appears to be another slight improvement again this week. There continues to be a mixture of granular tissue, adherent slough, fibrin as well as some slight surrounding hyperkeratotic tissue appreciated. The ulcer is close to the calcaneus. There continues to be no malodor, no purulence, no extending cellulitis, and no significant increase in warmth appreciated around the area at this time. There is no probing to bone. No tracking, no undermining noted at this time. Ulcer to the right posterior calf with measurements noted below. The base again continues to be a mixture of granular tissue, adherent slough, fibrotic tissue as well as some surrounding hyperkeratotic tissue. There continues to be no probing to bone, no tracking, no undermining, no purulence, no malodor, no ascending cellulitis, no increase in warmth to this ulcer site as well. Wound Measurements and Assessment WC - Nurse 1 - General Ulcer Measurement Start: 11/24/17 10:33 Freq: Status: Active Protocol: Activity Type Activity Date Activity User E-Sign Co-Sign Detail Recorded Client Recorded Date Recorded By Document 12/08/17 11:41 [id number] 12/08/17 11:44 12/08/17 11:41 Wound Center Nurse 1 [Ulcer Assessment] #12 R Post LE -Combined with other wound No -Current Size (cm) - Length 3.0 -Current Size (cm) - Width 1.4 -Current Size (cm) - Depth 0.3 -Total Square Cm 4.20 -Photo Taken No -Epithelialization None Present -Tunneling No -Undermining/Tunneling No -Circular Undermining No -Classification - Thickness Full Thickness without Exposed Support Structure -Exudate Amt Small (1-33%) -Exudate Type Serosanguineous -Wound Margin Distinct, Outline Attached -Granulation Amt Large (67-100%) -Granulation Quality Red -Slough/Fibrin Yes -Necrosis Amt Small (1-33%) -Necrotic Tissue Type Adherent Slough -Structure Exposed Fascia Fat Layer Exposed -Texture (Francia-wound Skin Appearance) No Abnormality Assessed -Moisture (Francia-wound Skin Appearance No Abnormality ) Assessed -Color (Francia-wound Skin Appearance) Assessed Erythema -Temperature (Francia-wound Skin No Abnormality Appearance) (Pt Warm) -Tenderness on Palpation (Francia-wound No Skin Appearance) -Ulcer Cleansing Rinsed/ Irrigated with Saline -Foul Odor after Cleansing No -Anesthetic Used 5% Lidocaine Gel #11- RT HEEL -Combined with other wound No -Current Size (cm) - Length 1.5 -Current Size (cm) - Width 1.0 -Current Size (cm) - Depth 0.1 -Total Square Cm 1.50 -Photo Taken No -Epithelialization Small 1-33% -Tunneling No -Undermining/Tunneling No -Circular Undermining No -Classification - Thickness Full Thickness without Exposed Support Structure -Exudate Amt Small (1-33%) -Exudate Type Serosanguineous -Wound Margin Distinct, Outline Attached -Granulation Amt Medium (34-66%) -Granulation Quality Red -Slough/Fibrin Yes -Necrosis Amt Small (1-33%) -Necrotic Tissue Type Adherent Slough -Structure Exposed Fascia Fat Layer Exposed -Texture (Francia-wound Skin Appearance) Callus Scarring -Moisture (Francia-wound Skin Appearance Dry/Scaly ) -Color (Francia-wound Skin Appearance) No Abnormality Assessed -Temperature (Francia-wound Skin No Abnormality Appearance) (Pt Warm) -Tenderness on Palpation (Francia-wound No Skin Appearance) -Ulcer Cleansing Rinsed/ Irrigated with Saline -Foul Odor after Cleansing No -Anesthetic Used 5% Lidocaine Gel [Edema Assessment] -Lower Limb Edema Present No WC - Nurse 2 - General Ulcer CM Notes Start: 11/24/17 10:33 Freq: Status: Active Protocol: Activity Type Activity Date Activity User E-Sign Co-Sign Detail Recorded Client Recorded Date Recorded By Document 12/08/17 11:59 [id number] 12/08/17 12:12 CS 12/08/17 11:59 Wound Center Nurse 2 [Procedure/Treatment] #12 R Post LE -Time 12:04 -Correct Patient Yes -Correct Side, Site, Position Yes -Correct Procedure Yes -Procedure Performed Yes -Type of Procedure Debridement -Clinical Debridement Subcutaneous -Post Debridement Size (cm) - Length 2.8 -Post Debridement Size (cm) - Width 1.4 -Post Debridement Size (cm) - Depth 0.3 -Total Square Cm 3.92 -Wound/Ulcer Outcome Not Healed -Ulcer Cleansing Rinsed/ Irrigated with Saline -Foul Odor after Cleansing No -Bioengineered Tissue No -Type of bioengineered Tissue EPIFIX -Expiration Date 08/21/22 -Product Lot Number [id number] -Percent Used 75 -Saline Lot Number [id number] -Bleeding Controlled with Pressure -Treatment Response Procedure Tolerated Well #11- RT HEEL -Time 12:04 -Correct Patient Yes -Correct Side, Site, Position Yes -Correct Procedure Yes -Procedure Performed Yes -Type of Procedure Debridement -Clinical Debridement Subcutaneous -Post Debridement Size (cm) - Length 1.4 -Post Debridement Size (cm) - Width 1.4 -Post Debridement Size (cm) - Depth 0.1 -Total Square Cm 1.96 -Wound/Ulcer Outcome Not Healed -Ulcer Cleansing Not Cleansed -Foul Odor after Cleansing No -Bioengineered Tissue Yes -Type of bioengineered Tissue EPIFIX -Expiration Date 08/21/22 -Product Lot Number [id number] -Percent Used 25 -Saline Lot Number [id number] -Bleeding Controlled with Pressure -Treatment Response Procedure Tolerated Well [See Physician Procedure note for Specifics] Pain Scale: 0-10 Numeric [Pain] -Is Patient Pain Free? Yes Musculoskeletal: No Tenderness to Palpation of Joints or Extremities, Muscle Wasting Neurological: - - Patient is an incomplete quadriplegic with very slight sensation to some areas of the lower extremity Psych/Mental Status: Normal Affect, Appropriate Debridement Note Post-Debridement Measurements/Treatment WC - Nurse 2 - General Ulcer CM Notes Start: 11/24/17 10:33 Freq: Status: Active Protocol: Activity Type Activity Date Activity User E-Sign Co-Sign Detail Recorded Client Recorded Date Recorded By Document 11/24/17 10:56 [id number] 11/24/17 11:20 Document 12/01/17 11:42 [id number] 12/01/17 12:03 CS Document 12/08/17 11:59 [id number] 12/08/17 12:12 11/24/17 12/01/17 12/08/17 10:56 11:42 11:59 Wound Center Nurse 2 #12 R Post LE -Time 11:00 11:42 12:04 -Correct Patient Yes Yes Yes -Correct Side, Site, Position Yes Yes Yes -Correct Procedure Yes Yes Yes -Procedure Performed Yes Yes Yes -Type of Procedure Debridement Debridement Debridement -Clinical Debridement Subcutaneous Subcutaneous Subcutaneous -Post Debridement Size (cm) - Length 3.4 3.0 2.8 -Post Debridement Size (cm) - Width 1.5 1.1 1.4 -Post Debridement Size (cm) - Depth 0.3 0.3 0.3 -Total Square Cm 5.10 3.30 3.92 -Wound/Ulcer Outcome Not Healed Not Healed Not Healed -Ulcer Cleansing Rinsed/ Not Cleansed Rinsed/ Irrigated with Irrigated with Saline Saline -Foul Odor after Cleansing No No No -Bioengineered Tissue Yes Yes No -Type of bioengineered Tissue EPIFIX EPIFIX EPIFIX -Expiration Date 08/21/22 08/21/22 08/21/22 -Product Lot Number [id number] -Percent Used 50 75 75 -Saline Lot Number [id number] -Bleeding Controlled with Pressure Pressure Pressure -Treatment Response Procedure Procedure Procedure Tolerated Well Tolerated Well Tolerated Well #11- RT HEEL -Time 11:00 11:43 12:04 -Correct Patient Yes Yes Yes -Correct Side, Site, Position Yes Yes Yes -Correct Procedure Yes Yes Yes -Procedure Performed Yes Yes Yes -Type of Procedure Debridement Debridement Debridement -Clinical Debridement Subcutaneous Subcutaneous Subcutaneous -Post Debridement Size (cm) - Length 2.0 1.0 1.4 -Post Debridement Size (cm) - Width 1.3 0.9 1.4 -Post Debridement Size (cm) - Depth 0.3 0.1 0.1 -Total Square Cm 2.60 0.90 1.96 -Wound/Ulcer Outcome Not Healed Not Healed Not Healed -Ulcer Cleansing Rinsed/ Not Cleansed Not Cleansed Irrigated with Saline -Foul Odor after Cleansing No No No -Bioengineered Tissue Yes Yes Yes -Type of bioengineered Tissue EPIFIX EPIFIX EPIFIX -Expiration Date 08/21/22 08/21/22 08/21/22 -Product Lot Number [id number] -Percent Used 25 75 25 -Saline Lot Number [id number] -Bleeding Controlled with Pressure Pressure Pressure -Treatment Response Procedure Procedure Procedure Tolerated Well Tolerated Well Tolerated Well Pain Scale: 0-10 Numeric Is Patient Pain Free? Yes Yes Wound debrided: Right posterior heel Laterality: Right Type of Debridement: Excisional debridement Anesthesia Used: 4% Lidocaine Solution Depth: in the subcutaneous layer Percentage of wound debrided: 100 Instrument Used: #15 blade Tissue Removed: Adherent slough, fibrin, hyperkeratotic tissue Severity: Fat Layer Exposed Amount of bleeding with debridement: Mild Bleeding Controlled with: Pressure Patient tolerated procedure well - Additional Wound Wound debrided: Right posterior calf Laterality: Right Type of Debridement: Excisional debridement Anesthesia Used: 4% Lidocaine Solution Depth: in the subcutaneous layer Percentage of wound debrided: 100 Instrument Used: 5mm curette Tissue Removed: Adherent slough, fibrin, hyperkeratotic tissue Severity: Fat Layer Exposed Amount of bleeding with debridement: Mild Bleeding Controlled with: Pressure Patient tolerated procedure: Patient tolerated procedure well Assessment/Plan Assessment: Ulcer to posterior right heel. Plan: Patient was again examined and evaluated in detail today. The aforementioned ulcers were both subcutaneously debrided as noted in the clinical panel again this week. The ulcers were then cleansed with normal sterile saline. The right posterior heel and calf ulcers were then dressed with epifix number 3 to the bases, followed by saline, wound veil, steristrips and an offloading dry sterile dressing. If the dressings need reinforced or the top dressing needs changed, the dressing is not to be taken down past the layer of wound veil and steristrips. He was instructed to keep these areas offloaded as much as possible in order to help heal the ulcer sites. He is to continue to use his padded offloading boots with heel cut outs. He completed his prescription of Doxycycline. He was instructed to continue with a diet high in protein to help optimize ulcer healing. He was educated on all signs and symptoms of local and systemic infection and was instructed to go to the ER immediately should he notice any. All questions were answered to the patient's satisfaction. Patient will follow-up in clinic in 1 week for further treatment and evaluation, or sooner if needed.
[2017-12-15 11:06] VITALS: BP 144/92; PULSE 73; RESP 18; TEMP 36.6; BMI 26.6
--- NOTE | 2017-12-15 12:08 | PCM.WC.PN ---
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 Status: Acute Current Visit: No Code(s): E11.621 - Type 2 diabetes mellitus with foot ulcer; L97.416 - Non-pressure chronic ulcer of right heel and midfoot with bone involvement without evidence of necrosis (5) Chronic incomplete quadriplegia Status: Acute Current Visit: No Code(s): G82.50 - Quadriplegia, unspecified (6) Malnutrition Status: Acute Current Visit: No Code(s): E46 - Unspecified protein-calorie malnutrition Type of Wound Date of Service: 12/15/17 Chief Complaint: Ulcer on right heel History of Wound: This is a 67-year-old white male who presents to the wound care center today for evaluation of a right heel ulcer. He has a past medical history as described above. The patient states that on the night of 06/06/2017, his heel protectors came off all night in bed and shortly after he noted an ulceration on his right heel and a purplish discoloration on his left heel. He states that there has been yellow drainage coming from his right heel and that yesterday he started using Granulex and Aquacel silver on the right heel. He denies any pain or foul-smelling discharge, however he does state that he has decreased sensation to his lower extremities due to his history of a spinal cord injury in high school. He currently has a suprapubic catheter as well due to his history of recurrent UTIs and obstructive uropathy. He also notes that his low air loss hospital bed is needing to be repaired so he is unable to use this at this time. The patient does state that he has a history of ulcerations on his right heel in the past where he had to be seen at a wound care center and ended up needing to have skin substitutes applied. He does note that he lives home alone and that he receives home health throughout the week. Patient was then referred to Dr. Gan at his office, who subsequently admitted the patient on Jul 04, for IV antibiotics and evaluation by ID. Infectious disease planned to d/c patient home on doxy 100mg bid, amoxicillin 500mg tid, and flagyl 500mg tid for planned 6 week course. He has since discharge been receiving daily dressing changes consisting of aquacel ag and a dry sterile dressing as well as wearing his PRAFO boots at all times. He otherwise denies any signs of systemic infection and denies any fever, chills, nausea, vomiting, chest pain or pressure, syncope or presyncopal episodes. Progress of Wound: Patient returns to wound healing center this week for continued treatment of right heel ulcer and right posterior calf ulcer. Patient continues to wear offloading padded boots with heel cut outs over the last week. He has kept his dressing intact since last visit. He feels there is slight improvement. He denies any purulence to the area. He denies any feeling of nausea, vomiting, fever, or chills currently. - Physical Exam Vital Signs Temp Pulse Resp BP 97.8 F 73 18 144/92 H 12/15/17 11:06 12/15/17 11:06 12/15/17 11:06 12/15/17 11:06 General: Alert, Oriented x3, Cooperative, No apparent distress Extremities: Capillary Refill Less than 3 Seconds, No Calf Tenderness - Negative Sarah Beth and Pretty sign, Diminished Peripheral Pulses Skin: Ulcer/ Wound - Ulcer to right posterior heel with fat layer exposed. Measurements noted below. Slight improvement again noted again this week. There continues to be a mixture of granular tissue, adherent slough, fibrin and some slight surrounding hyperkeratotic tissue as well. The ulcer base is close to the calcaneus. There continues to be no malodor, no purulence, no extending cellulitis, no increase in warmth to the area. There continues to be no probing to bone, no tracking, no undermining at this time. Ulcer to the right posterior calf with measurements noted below. Area continues to slowly heal as well. The base continues to be a mixture of granular tissue, adherent slough, fibrotic tissue as well as some surrounding hyperkeratotic tissue. There continues to be no probing to bone, no tracking, no undermining, no purulence, no malodor, no extending cellulitis, and no increased warmth to the site. Wound Measurements and Assessment WC - Nurse 1 - General Ulcer Measurement Start: 11/24/17 10:33 Freq: Status: Active Protocol: Activity Type Activity Date Activity User E-Sign Co-Sign Detail Recorded Client Recorded Date Recorded By Document 12/15/17 11:06 RB [id number] 12/15/17 11:25 RB 12/15/17 11:06 Wound Center Nurse 1 [Ulcer Assessment] #12 R Post LE -Combined with other wound No -Current Size (cm) - Length 3 -Current Size (cm) - Width 1 -Current Size (cm) - Depth 0.3 -Total Square Cm 3 -Photo Taken No -Tunneling No -Undermining/Tunneling No -Circular Undermining No -Classification - Thickness Full Thickness without Exposed Support Structure -Exudate Amt Small (1-33%) -Exudate Type Serosanguineous -Wound Margin Distinct, Outline Attached -Granulation Amt Medium (34-66%) -Granulation Quality [place] -Slough/Fibrin Yes -Necrosis Amt Medium (34-66%) -Necrotic Tissue Type Adherent Slough -Structure Exposed N/A -Texture (Francia-wound Skin Appearance) Assessed -Moisture (Francia-wound Skin Appearance Assessed ) Dry/Scaly -Color (Francia-wound Skin Appearance) Assessed -Temperature (Francia-wound Skin No Abnormality Appearance) (Pt Warm) -Tenderness on Palpation (Francia-wound No Skin Appearance) -Ulcer Cleansing Rinsed/ Irrigated with Saline -Foul Odor after Cleansing No -Anesthetic Used 4% Lidocaine Solution #11- RT HEEL -Combined with other wound No -Current Size (cm) - Length 0.5 -Current Size (cm) - Width 0.3 -Current Size (cm) - Depth 0.1 -Total Square Cm 0.15 -Photo Taken No -Tunneling No -Undermining/Tunneling No -Circular Undermining No -Classification - Thickness Full Thickness without Exposed Support Structure -Exudate Amt Small (1-33%) -Exudate Type Serosanguineous -Wound Margin Thickened & Rolled Under -Granulation Amt Medium (34-66%) -Granulation Quality [place] Red -Slough/Fibrin Yes -Necrosis Amt Small (1-33%) -Necrotic Tissue Type Adherent Slough -Structure Exposed N/A -Texture (Francia-wound Skin Appearance) Assessed -Moisture (Francia-wound Skin Appearance Assessed ) -Color (Francia-wound Skin Appearance) Assessed -Temperature (Francia-wound Skin No Abnormality Appearance) (Pt Warm) -Tenderness on Palpation (Francia-wound No Skin Appearance) -Ulcer Cleansing Rinsed/ Irrigated with Saline -Foul Odor after Cleansing No -Anesthetic Used 4% Lidocaine Solution Musculoskeletal: No Tenderness to Palpation of Joints or Extremities, Muscle Wasting Lymphatic: - - Patient is an incomplete quadriplegic with very slight sensation to some areas on the lower extremity Psych/Mental Status: Normal Affect, Appropriate Debridement Note Post-Debridement Measurements/Treatment WC - Nurse 2 - General Ulcer CM Notes Start: 11/24/17 10:33 Freq: Status: Active Protocol: Activity Type Activity Date Activity User E-Sign Co-Sign Detail Recorded Client Recorded Date Recorded By Document 11/24/17 10:56 [id number] 11/24/17 11:20 Document 12/01/17 11:42 [id number] 12/01/17 12:03 Document 12/08/17 11:59 [id number] 12/08/17 12:12 11/24/17 12/01/17 12/08/17 10:56 11:42 11:59 Wound Center Nurse 2 #12 R Post LE -Time 11:00 11:42 12:04 -Correct Patient Yes Yes Yes -Correct Side, Site, Position Yes Yes Yes -Correct Procedure Yes Yes Yes -Procedure Performed Yes Yes Yes -Type of Procedure Debridement Debridement Debridement -Clinical Debridement Subcutaneous Subcutaneous Subcutaneous -Post Debridement Size (cm) - Length 3.4 3.0 2.8 -Post Debridement Size (cm) - Width 1.5 1.1 1.4 -Post Debridement Size (cm) - Depth 0.3 0.3 0.3 -Total Square Cm 5.10 3.30 3.92 -Wound/Ulcer Outcome Not Healed Not Healed Not Healed -Ulcer Cleansing Rinsed/ Not Cleansed Rinsed/ Irrigated with Irrigated with Saline Saline -Foul Odor after Cleansing No No No -Bioengineered Tissue Yes Yes No -Type of bioengineered Tissue EPIFIX EPIFIX EPIFIX -Expiration Date 08/21/22 08/21/22 08/21/22 -Product Lot Number [id number] -Percent Used 50 75 75 -Saline Lot Number [id number] -Bleeding Controlled with Pressure Pressure Pressure -Treatment Response Procedure Procedure Procedure Tolerated Well Tolerated Well Tolerated Well #11- RT HEEL -Time 11:00 11:43 12:04 -Correct Patient Yes Yes Yes -Correct Side, Site, Position Yes Yes Yes -Correct Procedure Yes Yes Yes -Procedure Performed Yes Yes Yes -Type of Procedure Debridement Debridement Debridement -Clinical Debridement Subcutaneous Subcutaneous Subcutaneous -Post Debridement Size (cm) - Length 2.0 1.0 1.4 -Post Debridement Size (cm) - Width 1.3 0.9 1.4 -Post Debridement Size (cm) - Depth 0.3 0.1 0.1 -Total Square Cm 2.60 0.90 1.96 -Wound/Ulcer Outcome Not Healed Not Healed Not Healed -Ulcer Cleansing Rinsed/ Not Cleansed Not Cleansed Irrigated with Saline -Foul Odor after Cleansing No No No -Bioengineered Tissue Yes Yes Yes -Type of bioengineered Tissue EPIFIX EPIFIX EPIFIX -Expiration Date 08/21/22 08/21/22 08/21/22 -Product Lot Number [id number] -Percent Used 25 75 25 -Saline Lot Number [id number] -Bleeding Controlled with Pressure Pressure Pressure -Treatment Response Procedure Procedure Procedure Tolerated Well Tolerated Well Tolerated Well Pain Scale: 0-10 Numeric Is Patient Pain Free? Yes Yes Wound debrided: Right posterior heel Laterality: Right Type of Debridement: Excisional debridement Anesthesia Used: 4% Lidocaine Solution Depth: in the subcutaneous layer Percentage of wound debrided: 100 Instrument Used: #15 blade Tissue Removed: Adherent slough, fibrin, hyperkeratotic tissue Severity: Fat Layer Exposed Amount of bleeding with debridement: Mild Bleeding Controlled with: Pressure Patient tolerated procedure well - Additional Wound Wound debrided: Right posterior calf Laterality: Right Type of Debridement: Excisional debridement Anesthesia Used: 4% Lidocaine Solution Depth: in the subcutaneous layer Percentage of wound debrided: 100 Instrument Used: 5mm curette Tissue Removed: Adherent slough, fibrin, hyperkeratotic tissue Severity: Fat Layer Exposed Amount of bleeding with debridement: Mild Bleeding Controlled with: Pressure Patient tolerated procedure: Patient tolerated procedure well Assessment/Plan Assessment: Ulcer to posterior right heel. Plan: Patient was again examined and evaluated in detail today. The aforementioned ulcers were both subcutaneously debrided as noted in the clinical panel again this week. The ulcers were then cleansed with normal sterile saline. The right posterior heel and calf ulcers were then dressed with epifix number 4 to the bases, followed by saline, wound veil, steristrips and an offloading dry sterile dressing. If the dressings need reinforced or the top dressing needs changed, the dressing is not to be taken down past the layer of wound veil and steristrips. He was instructed to keep these areas offloaded as much as possible in order to help heal the ulcer sites. He is to continue to use his padded offloading boots with heel cut outs. He completed his prescription of Doxycycline. He was instructed to continue with a diet high in protein to help optimize ulcer healing. He was educated on all signs and symptoms of local and systemic infection and was instructed to go to the ER immediately should he notice any. All questions were answered to the patient's satisfaction. Patient will follow-up in clinic in 1 week for further treatment and evaluation, or sooner if needed.
--- NOTE | 2017-12-15 12:15 | PN.PCM_ITS ---
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 Status: Acute Current Visit: No Code(s): E11.621 - Type 2 diabetes mellitus with foot ulcer; L97.416 - Non-pressure chronic ulcer of right heel and midfoot with bone involvement without evidence of necrosis (5) Chronic incomplete quadriplegia Status: Acute Current Visit: No Code(s): G82.50 - Quadriplegia, unspecified (6) Malnutrition Status: Acute Current Visit: No Code(s): E46 - Unspecified protein-calorie malnutrition Type of Wound Date of Service: 12/15/17 Chief Complaint: Ulcer on right heel History of Wound: This is a 67-year-old white male who presents to the wound care center today for evaluation of a right heel ulcer. He has a past medical history as described above. The patient states that on the night of 06/06/2017, his heel protectors came off all night in bed and shortly after he noted an ulceration on his right heel and a purplish discoloration on his left heel. He states that there has been yellow drainage coming from his right heel and that yesterday he started using Granulex and Aquacel silver on the right heel. He denies any pain or foul-smelling discharge, however he does state that he has decreased sensation to his lower extremities due to his history of a spinal cord injury in high school. He currently has a suprapubic catheter as well due to his history of recurrent UTIs and obstructive uropathy. He also notes that his low air loss hospital bed is needing to be repaired so he is unable to use this at this time. The patient does state that he has a history of ulcerations on his right heel in the past where he had to be seen at a wound care center and ended up needing to have skin substitutes applied. He does note that he lives home alone and that he receives home health throughout the week. Patient was then referred to Dr. Gan at his office, who subsequently admitted the patient on Jul 04, for IV antibiotics and evaluation by ID. Infectious disease planned to d/c patient home on doxy 100mg bid, amoxicillin 500mg tid, and flagyl 500mg tid for planned 6 week course. He has since discharge been receiving daily dressing changes consisting of aquacel ag and a dry sterile dressing as well as wearing his PRAFO boots at all times. He otherwise denies any signs of systemic infection and denies any fever, chills, nausea, vomiting, chest pain or pressure, syncope or presyncopal episodes. Progress of Wound: Patient returns to wound healing center this week for continued treatment of right heel ulcer and right posterior calf ulcer. Patient continues to wear offloading padded boots with heel cut outs over the last week. He has kept his dressing intact since last visit. He feels there is slight improvement. He denies any purulence to the area. He denies any feeling of nausea, vomiting, fever, or chills currently. - Physical Exam Vital Signs Temp Pulse Resp BP 97.8 F 73 18 144/92 H 12/15/17 11:06 12/15/17 11:06 12/15/17 11:06 12/15/17 11:06 General: Alert, Oriented x3, Cooperative, No apparent distress Extremities: Capillary Refill Less than 3 Seconds, No Calf Tenderness - Negative Sarah Beth and Pretty sign, Diminished Peripheral Pulses Skin: Ulcer/ Wound - Ulcer to right posterior heel with fat layer exposed. Measurements noted below. Slight improvement again noted again this week. There continues to be a mixture of granular tissue, adherent slough, fibrin and some slight surrounding hyperkeratotic tissue as well. The ulcer base is close to the calcaneus. There continues to be no malodor, no purulence, no extending cellulitis, no increase in warmth to the area. There continues to be no probing to bone, no tracking, no undermining at this time. Ulcer to the right posterior calf with measurements noted below. Area continues to slowly heal as well. The base continues to be a mixture of granular tissue, adherent slough, fibrotic tissue as well as some surrounding hyperkeratotic tissue. There continues to be no probing to bone, no tracking, no undermining, no purulence, no malodor, no extending cellulitis, and no increased warmth to the site. Wound Measurements and Assessment WC - Nurse 1 - General Ulcer Measurement Start: 11/24/17 10:33 Freq: Status: Active Protocol: Activity Type Activity Date Activity User E-Sign Co-Sign Detail Recorded Client Recorded Date Recorded By Document 12/15/17 11:06 RB [id number] 12/15/17 11:25 RB 12/15/17 11:06 Wound Center Nurse 1 [Ulcer Assessment] #12 R Post LE -Combined with other wound No -Current Size (cm) - Length 3 -Current Size (cm) - Width 1 -Current Size (cm) - Depth 0.3 -Total Square Cm 3 -Photo Taken No -Tunneling No -Undermining/Tunneling No -Circular Undermining No -Classification - Thickness Full Thickness without Exposed Support Structure -Exudate Amt Small (1-33%) -Exudate Type Serosanguineous -Wound Margin Distinct, Outline Attached -Granulation Amt Medium (34-66%) -Granulation Quality [place] -Slough/Fibrin Yes -Necrosis Amt Medium (34-66%) -Necrotic Tissue Type Adherent Slough -Structure Exposed N/A -Texture (Francia-wound Skin Appearance) Assessed -Moisture (Francia-wound Skin Appearance Assessed ) Dry/Scaly -Color (Francia-wound Skin Appearance) Assessed -Temperature (Francia-wound Skin No Abnormality Appearance) (Pt Warm) -Tenderness on Palpation (Francia-wound No Skin Appearance) -Ulcer Cleansing Rinsed/ Irrigated with Saline -Foul Odor after Cleansing No -Anesthetic Used 4% Lidocaine Solution #11- RT HEEL -Combined with other wound No -Current Size (cm) - Length 0.5 -Current Size (cm) - Width 0.3 -Current Size (cm) - Depth 0.1 -Total Square Cm 0.15 -Photo Taken No -Tunneling No -Undermining/Tunneling No -Circular Undermining No -Classification - Thickness Full Thickness without Exposed Support Structure -Exudate Amt Small (1-33%) -Exudate Type Serosanguineous -Wound Margin Thickened & Rolled Under -Granulation Amt Medium (34-66%) -Granulation Quality [place] Red -Slough/Fibrin Yes -Necrosis Amt Small (1-33%) -Necrotic Tissue Type Adherent Slough -Structure Exposed N/A -Texture (Francia-wound Skin Appearance) Assessed -Moisture (Francia-wound Skin Appearance Assessed ) -Color (Francia-wound Skin Appearance) Assessed -Temperature (Francia-wound Skin No Abnormality Appearance) (Pt Warm) -Tenderness on Palpation (Francia-wound No Skin Appearance) -Ulcer Cleansing Rinsed/ Irrigated with Saline -Foul Odor after Cleansing No -Anesthetic Used 4% Lidocaine Solution Musculoskeletal: No Tenderness to Palpation of Joints or Extremities, Muscle Wasting Lymphatic: - - Patient is an incomplete quadriplegic with very slight sensation to some areas on the lower extremity Psych/Mental Status: Normal Affect, Appropriate Debridement Note Post-Debridement Measurements/Treatment WC - Nurse 2 - General Ulcer CM Notes Start: 11/24/17 10:33 Freq: Status: Active Protocol: Activity Type Activity Date Activity User E-Sign Co-Sign Detail Recorded Client Recorded Date Recorded By Document 11/24/17 10:56 [id number] 11/24/17 11:20 Document 12/01/17 11:42 [id number] 12/01/17 12:03 Document 12/08/17 11:59 [id number] 12/08/17 12:12 11/24/17 12/01/17 12/08/17 10:56 11:42 11:59 Wound Center Nurse 2 #12 R Post LE -Time 11:00 11:42 12:04 -Correct Patient Yes Yes Yes -Correct Side, Site, Position Yes Yes Yes -Correct Procedure Yes Yes Yes -Procedure Performed Yes Yes Yes -Type of Procedure Debridement Debridement Debridement -Clinical Debridement Subcutaneous Subcutaneous Subcutaneous -Post Debridement Size (cm) - Length 3.4 3.0 2.8 -Post Debridement Size (cm) - Width 1.5 1.1 1.4 -Post Debridement Size (cm) - Depth 0.3 0.3 0.3 -Total Square Cm 5.10 3.30 3.92 -Wound/Ulcer Outcome Not Healed Not Healed Not Healed -Ulcer Cleansing Rinsed/ Not Cleansed Rinsed/ Irrigated with Irrigated with Saline Saline -Foul Odor after Cleansing No No No -Bioengineered Tissue Yes Yes No -Type of bioengineered Tissue EPIFIX EPIFIX EPIFIX -Expiration Date 08/21/22 08/21/22 08/21/22 -Product Lot Number [id number] -Percent Used 50 75 75 -Saline Lot Number [id number] -Bleeding Controlled with Pressure Pressure Pressure -Treatment Response Procedure Procedure Procedure Tolerated Well Tolerated Well Tolerated Well #11- RT HEEL -Time 11:00 11:43 12:04 -Correct Patient Yes Yes Yes -Correct Side, Site, Position Yes Yes Yes -Correct Procedure Yes Yes Yes -Procedure Performed Yes Yes Yes -Type of Procedure Debridement Debridement Debridement -Clinical Debridement Subcutaneous Subcutaneous Subcutaneous -Post Debridement Size (cm) - Length 2.0 1.0 1.4 -Post Debridement Size (cm) - Width 1.3 0.9 1.4 -Post Debridement Size (cm) - Depth 0.3 0.1 0.1 -Total Square Cm 2.60 0.90 1.96 -Wound/Ulcer Outcome Not Healed Not Healed Not Healed -Ulcer Cleansing Rinsed/ Not Cleansed Not Cleansed Irrigated with Saline -Foul Odor after Cleansing No No No -Bioengineered Tissue Yes Yes Yes -Type of bioengineered Tissue EPIFIX EPIFIX EPIFIX -Expiration Date 08/21/22 08/21/22 08/21/22 -Product Lot Number [id number] -Percent Used 25 75 25 -Saline Lot Number [id number] -Bleeding Controlled with Pressure Pressure Pressure -Treatment Response Procedure Procedure Procedure Tolerated Well Tolerated Well Tolerated Well Pain Scale: 0-10 Numeric Is Patient Pain Free? Yes Yes Wound debrided: Right posterior heel Laterality: Right Type of Debridement: Excisional debridement Anesthesia Used: 4% Lidocaine Solution Depth: in the subcutaneous layer Percentage of wound debrided: 100 Instrument Used: #15 blade Tissue Removed: Adherent slough, fibrin, hyperkeratotic tissue Severity: Fat Layer Exposed Amount of bleeding with debridement: Mild Bleeding Controlled with: Pressure Patient tolerated procedure well - Additional Wound Wound debrided: Right posterior calf Laterality: Right Type of Debridement: Excisional debridement Anesthesia Used: 4% Lidocaine Solution Depth: in the subcutaneous layer Percentage of wound debrided: 100 Instrument Used: 5mm curette Tissue Removed: Adherent slough, fibrin, hyperkeratotic tissue Severity: Fat Layer Exposed Amount of bleeding with debridement: Mild Bleeding Controlled with: Pressure Patient tolerated procedure: Patient tolerated procedure well Assessment/Plan Assessment: Ulcer to posterior right heel. Plan: Patient was again examined and evaluated in detail today. The aforementioned ulcers were both subcutaneously debrided as noted in the clinical panel again this week. The ulcers were then cleansed with normal sterile saline. The right posterior heel and calf ulcers were then dressed with epifix number 4 to the bases, followed by saline, wound veil, steristrips and an offloading dry sterile dressing. If the dressings need reinforced or the top dressing needs changed, the dressing is not to be taken down past the layer of wound veil and steristrips. He was instructed to keep these areas offloaded as much as possible in order to help heal the ulcer sites. He is to continue to use his padded offloading boots with heel cut outs. He completed his prescription of Doxycycline. He was instructed to continue with a diet high in protein to help optimize ulcer healing. He was educated on all signs and symptoms of local and systemic infection and was instructed to go to the ER immediately should he notice any. All questions were answered to the patient's satisfaction. Patient will follow-up in clinic in 1 week for further treatment and evaluation, or sooner if needed.
== END 2017-12-20 23:59 ==
LOC: WC 11:00
PROVIDERS: Visit Provider Podiatrist
DX: E11.622 Type 2 diabetes mellitus with other skin ulcer (principal); E11.42 Type 2 diabetes mellitus with diabetic polyneuropathy; E11.621 Type 2 diabetes mellitus with foot ulcer; G82.50 Quadriplegia, unspecified; L97.412 Non-pressure chronic ulcer of right heel and midfoot with fat layer exposed; L97.212 Non-pressure chronic ulcer of right calf with fat layer exposed
CPT/HCPCS: 15275; Q4131

== ENCOUNTER → 2017-12-29 12:37 | Outpatient (CLI) | payer MEDICARE, OTHER, SELFPAY | PROVIDERS: Visit Provider Surgery | DX: Z45.2 Encounter for adjustment and management of vascular access device (principal); E11.622 Type 2 diabetes mellitus with other skin ulcer; E11.621 Type 2 diabetes mellitus with foot ulcer; E11.42 Type 2 diabetes mellitus with diabetic polyneuropathy; L97.412 Non-pressure chronic ulcer of right heel and midfoot with fat layer exposed; L97.212 Non-pressure chronic ulcer of right calf with fat layer exposed; G82.50 Quadriplegia, unspecified | CPT/HCPCS: A4216 ==

== ENCOUNTER 2018-01-19 11:00 | Outpatient (RCR) | payer MEDICARE, OTHER, SELFPAY ==
[2017-12-21 00:37] VITALS: BP 144/92; PULSE 73; RESP 18; TEMP 36.6; BMI 26.6
[2017-12-22 11:28] VITALS: BP 109/64; PULSE 67; RESP 18; TEMP 35.8; BMI 26.6
--- NOTE | 2017-12-22 12:08 | PN.PCM_ITS ---
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 Status: Acute Current Visit: No Code(s): E11.621 - Type 2 diabetes mellitus with foot ulcer; L97.416 - Non-pressure chronic ulcer of right heel and midfoot with bone involvement without evidence of necrosis (4) Delayed wound healing Status: Acute Current Visit: No Code(s): T14.8XXD - Other injury of unspecified body region, subsequent encounter (5) Chronic incomplete quadriplegia Status: Acute Current Visit: No Code(s): G82.50 - Quadriplegia, unspecified (6) Malnutrition Status: Acute Current Visit: No Code(s): E46 - Unspecified protein-calorie malnutrition Type of Wound Date of Service: 12/22/17 Chief Complaint: Ulcer on right heel History of Wound: This is a 67-year-old white male who presents to the wound care center today for evaluation of a right heel ulcer. He has a past medical history as described above. The patient states that on the night of 06/06/2017, his heel protectors came off all night in bed and shortly after he noted an ulceration on his right heel and a purplish discoloration on his left heel. He states that there has been yellow drainage coming from his right heel and that yesterday he started using Granulex and Aquacel silver on the right heel. He denies any pain or foul-smelling discharge, however he does state that he has decreased sensation to his lower extremities due to his history of a spinal cord injury in high school. He currently has a suprapubic catheter as well due to his history of recurrent UTIs and obstructive uropathy. He also notes that his low air loss hospital bed is needing to be repaired so he is unable to use this at this time. The patient does state that he has a history of ulcerations on his right heel in the past where he had to be seen at a wound care center and ended up needing to have skin substitutes applied. He does note that he lives home alone and that he receives home health throughout the week. Patient was then referred to Dr. Gan at his office, who subsequently admitted the patient on Jul 04, for IV antibiotics and evaluation by ID. Infectious disease planned to d/c patient home on doxy 100mg bid, amoxicillin 500mg tid, and flagyl 500mg tid for planned 6 week course. He has since discharge been receiving daily dressing changes consisting of aquacel ag and a dry sterile dressing as well as wearing his PRAFO boots at all times. He otherwise denies any signs of systemic infection and denies any fever, chills, nausea, vomiting, chest pain or pressure, syncope or presyncopal episodes. Progress of Wound: Patient returns to wound healing center this week for continued treatment of right heel ulcer and right posterior calf ulcer. Patient continues to wear offloading padded boots with heel cut outs over the last week. He has kept his dressing intact since last visit. He denies any purulence to the area. He denies any feeling of nausea, vomiting, fever, or chills currently. - Physical Exam Vital Signs Temp Pulse Resp BP 96.4 F L 67 18 109/64 12/22/17 11:28 12/22/17 11:28 12/22/17 11:28 12/22/17 11:28 General: Alert, Oriented x3, Cooperative, No apparent distress Extremities: Capillary Refill Less than 3 Seconds, No Calf Tenderness - Negative Sarah Beth and Pretty sign, Diminished Peripheral Pulses Skin: Ulcer/ Wound - Ulcer to right posterior heel with fat layer exposed. Measurements noted below. Also remains fairly stable since last visit. The base continues to be a mixture of granular tissue, adherent slough, fibrin, and some surrounding hyperkeratotic tissue. The base of the ulcer is very close to the calcaneus. There continues to be no malodor, no purulence, no extending cellulitis, no increase in warmth to the area noted today. Ulcer to right posterior calf. Measurements also noted below. There continues to slowly heal and show slight signs of improvement. The base continues to be a mixture of granular tissue, adherent slough, fibrotic tissue as well as some surrounding hyperkeratotic tissue. There continues to be no probing to bone, no tracking, no undermining, no purulence, no malodor, no extending cellulitis, no increase in warmth to the ulcer site. Wound Measurements and Assessment WC - Nurse 1 - General Ulcer Measurement Start: 12/22/17 11:28 Freq: Status: Active Protocol: Activity Type Activity Date Activity User E-Sign Co-Sign Detail Recorded Client Recorded Date Recorded By Document 12/22/17 11:28 TM [id number] 12/22/17 11:33 TM 12/22/17 11:28 Wound Center Nurse 1 [Ulcer Assessment] #13 L Post LE -Exudate Type Serosanguineous -Granulation Amt Large (67-100%) -Granulation Quality [place] -Necrotic Tissue Type Adherent Slough #12 R Post LE -Combined with other wound No -Current Size (cm) - Length 3.0 -Current Size (cm) - Width 1.4 -Current Size (cm) - Depth 0.3 -Total Square Cm 4.20 -Date of Last Picture (Recall this 12/22/17 field) -Photo Taken Yes -Epithelialization Small 1-33% -Tunneling No -Undermining/Tunneling No -Circular Undermining No -Classification - Thickness Full Thickness without Exposed Support Structure -Exudate Amt Small (1-33%) -Exudate Type Serosanguineous -Wound Margin Distinct, Outline Attached -Granulation Amt Large (67-100%) -Granulation Quality Red -Slough/Fibrin Yes -Necrosis Amt Small (1-33%) -Necrotic Tissue Type Adherent Slough -Structure Exposed Fascia Fat Layer Exposed -Texture (Francia-wound Skin Appearance) Assessed Scarring -Moisture (Francia-wound Skin Appearance No Abnormality ) Assessed -Color (Francia-wound Skin Appearance) Assessed Erythema -Temperature (Francia-wound Skin No Abnormality Appearance) (Pt Warm) -Tenderness on Palpation (Francia-wound No Skin Appearance) -Ulcer Cleansing Rinsed/ Irrigated with Saline -Foul Odor after Cleansing No -Anesthetic Used 5% Lidocaine Gel #11- RT HEEL -Combined with other wound No -Current Size (cm) - Length 0.5 -Current Size (cm) - Width 0.5 -Current Size (cm) - Depth 0.2 -Total Square Cm 0.25 -Date of Last Picture (Recall this 12/22/17 field) -Photo Taken Yes -Epithelialization Small 1-33% -Tunneling No -Undermining/Tunneling No -Circular Undermining No -Classification - Thickness Full Thickness without Exposed Support Structure -Exudate Amt Small (1-33%) -Exudate Type Serosanguineous -Wound Margin Distinct, Outline Attached -Granulation Amt Medium (34-66%) -Granulation Quality Pale [place] -Slough/Fibrin Yes -Necrosis Amt Small (1-33%) -Necrotic Tissue Type Adherent Slough -Structure Exposed Fascia Fat Layer Exposed -Texture (Francia-wound Skin Appearance) Assessed Callus Scarring -Moisture (Francia-wound Skin Appearance Assessed ) Dry/Scaly -Color (Francia-wound Skin Appearance) No Abnormality Assessed -Temperature (Francia-wound Skin No Abnormality Appearance) (Pt Warm) -Tenderness on Palpation (Francia-wound No Skin Appearance) -Ulcer Cleansing Rinsed/ Irrigated with Saline -Foul Odor after Cleansing No -Anesthetic Used 5% Lidocaine Gel [Edema Assessment] -Lower Limb Edema Present No Musculoskeletal: No Tenderness to Palpation of Joints or Extremities, Muscle Wasting Neurological: - - Patient is an incomplete quadriplegic with very slight sensation to some areas throughout lower extremity Psych/Mental Status: Normal Affect, Appropriate Debridement Note Wound debrided: Right posterior heel Laterality: Right Type of Debridement: Excisional debridement Anesthesia Used: 4% Lidocaine Solution Depth: in the subcutaneous layer Percentage of wound debrided: 100 Instrument Used: #15 blade Tissue Removed: Adherent slough, fibrin, hyperkeratotic tissue Severity: Fat Layer Exposed Amount of bleeding with debridement: Mild Bleeding Controlled with: Pressure Patient tolerated procedure well - Additional Wound Wound debrided: Right posterior calf Laterality: Right Type of Debridement: Excisional debridement Anesthesia Used: 4% Lidocaine Solution Depth: in the subcutaneous layer Percentage of wound debrided: 100 Instrument Used: 5mm curette Tissue Removed: Adherent slough, fibrin, hyperkeratotic tissue Severity: Fat Layer Exposed Amount of bleeding with debridement: Mild Bleeding Controlled with: Pressure Patient tolerated procedure: Patient tolerated procedure well Assessment/Plan Assessment: Ulcer to posterior right heel. Plan: Patient was again examined and evaluated in detail today. The aforementioned ulcers were both subcutaneously debrided as noted in the clinical panel again this week. The ulcers were then cleansed with normal sterile saline. The right posterior heel and calf ulcers were then dressed with epifix number 5 to the bases, followed by saline, wound veil, steristrips and an offloading dry sterile dressing. If the dressings need reinforced or the top dressing needs changed, the dressing is not to be taken down past the layer of wound veil and steristrips. He was instructed to keep these areas offloaded as much as possible in order to help heal the ulcer sites. He is to continue to use his padded offloading boots with heel cut outs. He completed his prescription of Doxycycline. He was instructed to continue with a diet high in protein to help optimize ulcer healing. He was educated on all signs and symptoms of local and systemic infection and was instructed to go to the ER immediately should he notice any. All questions were answered to the patient's satisfaction. Patient will follow-up in clinic in 1 week for further treatment and evaluation, or sooner if needed.
[2017-12-29 11:32] VITALS: BP 108/66; PULSE 74; RESP 16; TEMP 36.4; BMI 26.6
--- NOTE | 2017-12-29 13:31 | PCM.WC.PN ---
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 Status: Acute Current Visit: No Code(s): E11.621 - Type 2 diabetes mellitus with foot ulcer; L97.416 - Non-pressure chronic ulcer of right heel and midfoot with bone involvement without evidence of necrosis (4) Delayed wound healing Status: Acute Current Visit: No Code(s): T14.8XXD - Other injury of unspecified body region, subsequent encounter (5) Chronic incomplete quadriplegia Status: Acute Current Visit: No Code(s): G82.50 - Quadriplegia, unspecified (6) Malnutrition Status: Acute Current Visit: No Code(s): E46 - Unspecified protein-calorie malnutrition Type of Wound Date of Service: 12/29/17 Chief Complaint: Ulcer on right heel History of Wound: This is a 67-year-old white male who presents to the wound care center today for evaluation of a right heel ulcer. He has a past medical history as described above. The patient states that on the night of 06/06/2017, his heel protectors came off all night in bed and shortly after he noted an ulceration on his right heel and a purplish discoloration on his left heel. He states that there has been yellow drainage coming from his right heel and that yesterday he started using Granulex and Aquacel silver on the right heel. He denies any pain or foul-smelling discharge, however he does state that he has decreased sensation to his lower extremities due to his history of a spinal cord injury in high school. He currently has a suprapubic catheter as well due to his history of recurrent UTIs and obstructive uropathy. He also notes that his low air loss hospital bed is needing to be repaired so he is unable to use this at this time. The patient does state that he has a history of ulcerations on his right heel in the past where he had to be seen at a wound care center and ended up needing to have skin substitutes applied. He does note that he lives home alone and that he receives home health throughout the week. Patient was then referred to Dr. Gan at his office, who subsequently admitted the patient on Jul 04, for IV antibiotics and evaluation by ID. Infectious disease planned to d/c patient home on doxy 100mg bid, amoxicillin 500mg tid, and flagyl 500mg tid for planned 6 week course. He has since discharge been receiving daily dressing changes consisting of aquacel ag and a dry sterile dressing as well as wearing his PRAFO boots at all times. He otherwise denies any signs of systemic infection and denies any fever, chills, nausea, vomiting, chest pain or pressure, syncope or presyncopal episodes. Progress of Wound: Patient returns to wound healing center this week for continued treatment of right heel ulcer and right posterior calf ulcer. Patient continues to wear offloading padded boots with heel cut outs over the last week. He has kept his dressing intact since last visit. He says that with his condition, he does not know of any way to completely keep pressure off of the areas, but that he is doing his best. He denies any purulence to the area. He denies any feeling of nausea, vomiting, fever, or chills currently. - Physical Exam Vital Signs Temp Pulse Resp BP 97.5 F L 74 16 108/66 12/29/17 11:32 12/29/17 11:32 12/29/17 11:32 12/29/17 11:32 General: Alert, Oriented x3, Cooperative, No apparent distress Extremities: Capillary Refill Less than 3 Seconds, No Calf Tenderness - Negative Sarah Beth and Pretty sign, Diminished Peripheral Pulses Skin: Ulcer/ Wound - Ulcer to right posterior heel with fat layer exposed. Measurements are noted below. Very minor improvement in the ulcer site appreciated this week. The base continues to be a mixture of granular tissue, adherent slough, fibrin, as well as some surrounding hyperkeratotic tissue. Ulcer remains very close to the calcaneus at this time. There continues to be no malodor, no purulence, no extending cellulitis, no increase in warmth noted to the area today. Ulcer to the right posterior calf is also present. Measurements noted below. Slow healing continues to be appreciated to this area. The base continues to be a mixture of granular tissue, adherent slough, fibrin, as well as some very minor surrounding hyperkeratotic tissue. There continues to be no probing to bone, no tracking, no undermining, no purulence, no malodor, no extending cellulitis, and no increase in warmth to the ulcer site. Wound Measurements and Assessment WC - Nurse 1 - General Ulcer Measurement Start: 12/22/17 11:28 Freq: Status: Active Protocol: Activity Type Activity Date Activity User E-Sign Co-Sign Detail Recorded Client Recorded Date Recorded By Document 12/29/17 11:32 SD [id number] 12/29/17 11:50 SD 12/29/17 11:32 Wound Center Nurse 1 [Ulcer Assessment] #12 R Post LE -Combined with other wound No -Current Size (cm) - Length 2.5 -Current Size (cm) - Width 1.1 -Current Size (cm) - Depth 0.1 -Total Square Cm 2.75 -Photo Taken No -Undermining/Tunneling No -Circular Undermining No -Exudate Amt Small (1-33%) -Exudate Type Serosanguineous -Wound Margin Thickened -Granulation Amt Large (67-100%) -Granulation Quality [place] Red -Slough/Fibrin Yes -Necrosis Amt Small (1-33%) -Necrotic Tissue Type Adherent Slough -Structure Exposed Fascia Fat Layer Exposed -Texture (Francia-wound Skin Appearance) Assessed -Moisture (Francia-wound Skin Appearance Assessed ) -Color (Francia-wound Skin Appearance) Assessed -Temperature (Francia-wound Skin No Abnormality Appearance) (Pt Warm) -Tenderness on Palpation (Francia-wound No Skin Appearance) -Ulcer Cleansing Rinsed/ Irrigated with Saline -Foul Odor after Cleansing No -Anesthetic Used 4% Lidocaine Solution #11- RT HEEL -Combined with other wound No -Current Size (cm) - Length 2 -Current Size (cm) - Width 1.1 -Current Size (cm) - Depth 0.1 -Total Square Cm 2.2 -Photo Taken No -Tunneling No -Undermining/Tunneling No -Circular Undermining No -Exudate Amt Small (1-33%) -Exudate Type Serosanguineous -Wound Margin Flat & Intact -Granulation Amt Small (1-33%) -Granulation Quality Pale -Slough/Fibrin Yes -Necrosis Amt Medium (34-66%) -Necrotic Tissue Type [place] -Texture (Francia-wound Skin Appearance) Assessed -Moisture (Francia-wound Skin Appearance Assessed ) Dry/Scaly -Color (Francia-wound Skin Appearance) Assessed -Temperature (Francia-wound Skin No Abnormality Appearance) (Pt Warm) -Tenderness on Palpation (Francia-wound No Skin Appearance) -Ulcer Cleansing Rinsed/ Irrigated with Saline -Foul Odor after Cleansing No -Anesthetic Used 4% Lidocaine Solution [Edema Assessment] -Right Calf (cm) 28 -Right Ankle (cm) 20 WC - Nurse 2 - General Ulcer CM Notes Start: 12/22/17 11:28 Freq: Status: Active Protocol: Activity Type Activity Date Activity User E-Sign Co-Sign Detail Recorded Client Recorded Date Recorded By Document 12/29/17 12:11 CS [id number] 12/29/17 12:15 CS 12/29/17 12:11 Wound Center Nurse 2 [Procedure/Treatment] #12 R Post LE -Time 12:12 -Correct Patient Yes -Correct Side, Site, Position Yes -Correct Procedure Yes -Procedure Performed Yes -Type of Procedure Debridement -Clinical Debridement Subcutaneous -Post Debridement Size (cm) - Length 2.8 -Post Debridement Size (cm) - Width 1.0 -Post Debridement Size (cm) - Depth 0.3 -Total Square Cm 2.80 -Wound/Ulcer Outcome Not Healed -Ulcer Cleansing Rinsed/ Irrigated with Saline -Foul Odor after Cleansing No -Bioengineered Tissue Yes -Type of bioengineered Tissue EPIFIX -Expiration Date 09/20/22 -Product Lot Number [id number] -Percent Used 75 -Saline Lot Number [id number] -Bleeding Controlled with Pressure -Treatment Response Procedure Tolerated Well #11- RT HEEL -Time 12:13 -Correct Patient Yes -Correct Side, Site, Position Yes -Correct Procedure Yes -Procedure Performed Yes -Type of Procedure Debridement -Clinical Debridement Subcutaneous -Post Debridement Size (cm) - Length 1.5 -Post Debridement Size (cm) - Width 0.8 -Post Debridement Size (cm) - Depth 0.1 -Total Square Cm 1.20 -Wound/Ulcer Outcome Not Healed -Ulcer Cleansing Rinsed/ Irrigated with Saline -Foul Odor after Cleansing No -Bioengineered Tissue No -Type of bioengineered Tissue EPIFIX -Expiration Date 09/20/22 -Product Lot Number [id number] -Percent Used 25 -Saline Lot Number [id number] -Bleeding Controlled with Pressure -Treatment Response Procedure Tolerated Well [See Physician Procedure note for Specifics] Pain Scale: 0-10 Numeric [Pain] -Is Patient Pain Free? Yes Musculoskeletal: No Tenderness to Palpation of Joints or Extremities, Muscle Wasting Neurological: - - Patient is an incomplete quadriplegic with very slight sensation in some areas throughout the lower extremity Psych/Mental Status: Normal Affect, Appropriate Debridement Note Post-Debridement Measurements/Treatment WC - Nurse 2 - General Ulcer CM Notes Start: 12/22/17 11:28 Freq: Status: Active Protocol: Activity Type Activity Date Activity User E-Sign Co-Sign Detail Recorded Client Recorded Date Recorded By Document 12/22/17 12:14 [id number] 12/22/17 12:18 CS Document 12/29/17 12:11 CS [id number] 12/29/17 12:15 CS 12/22/17 12/29/17 12:14 12:11 Wound Center Nurse 2 #12 R Post LE -Time 11:45 12:12 -Correct Patient Yes Yes -Correct Side, Site, Position Yes Yes -Correct Procedure Yes Yes -Procedure Performed Yes Yes -Type of Procedure Debridement Debridement -Clinical Debridement Subcutaneous Subcutaneous -Post Debridement Size (cm) - Length 2.6 2.8 -Post Debridement Size (cm) - Width 1.1 1.0 -Post Debridement Size (cm) - Depth 0.3 0.3 -Total Square Cm 2.86 2.80 -Wound/Ulcer Outcome Not Healed Not Healed -Ulcer Cleansing Not Cleansed Rinsed/ Irrigated with Saline -Foul Odor after Cleansing No No -Bioengineered Tissue Yes Yes -Type of bioengineered Tissue EPIFIX EPIFIX -Expiration Date 09/20/22 09/20/22 -Product Lot Number [id number] -Percent Used 75 75 -Saline Lot Number [id number] -Bleeding Controlled with Pressure Pressure -Treatment Response Procedure Procedure Tolerated Well Tolerated Well #11- RT HEEL -Time 11:45 12:13 -Correct Patient Yes Yes -Correct Side, Site, Position Yes Yes -Correct Procedure Yes Yes -Procedure Performed Yes Yes -Type of Procedure Debridement Debridement -Clinical Debridement Subcutaneous Subcutaneous -Post Debridement Size (cm) - Length 1.8 1.5 -Post Debridement Size (cm) - Width 1.8 0.8 -Post Debridement Size (cm) - Depth 0.1 0.1 -Total Square Cm 3.24 1.20 -Wound/Ulcer Outcome Not Healed Not Healed -Ulcer Cleansing Not Cleansed Rinsed/ Irrigated with Saline -Foul Odor after Cleansing No No -Bioengineered Tissue Yes No -Type of bioengineered Tissue EPIFIX EPIFIX -Expiration Date 09/20/22 09/20/22 -Product Lot Number [id number] -Percent Used 25 25 -Saline Lot Number [id number] -Bleeding Controlled with Pressure Pressure -Treatment Response Procedure Procedure Tolerated Well Tolerated Well Pain Scale: 0-10 Numeric Is Patient Pain Free? Yes Yes Wound debrided: Right posterior heel Laterality: Right Type of Debridement: Excisional debridement Anesthesia Used: 4% Lidocaine Solution Depth: in the subcutaneous layer Percentage of wound debrided: 100 Instrument Used: #15 blade Tissue Removed: Adherent slough, fibrin, hyperkeratotic tissue Severity: Fat Layer Exposed Amount of bleeding with debridement: Mild Bleeding Controlled with: Pressure Patient tolerated procedure well - Additional Wound Wound debrided: Right posterior calf Laterality: Right Type of Debridement: Excisional debridement Anesthesia Used: 4% Lidocaine Solution Depth: in the subcutaneous layer Percentage of wound debrided: 100 Instrument Used: 3mm curette Tissue Removed: Adherent slough, fibrin, hyperkeratotic tissue Severity: Fat Layer Exposed Amount of bleeding with debridement: Mild Bleeding Controlled with: Pressure Patient tolerated procedure: Patient tolerated procedure well Assessment/Plan Assessment: Ulcer to posterior right heel. Plan: Patient was again examined and evaluated in detail today. The aforementioned ulcers were both subcutaneously debrided as noted in the clinical panel again this week. The ulcers were then cleansed carefully cleansed. The right posterior heel and calf ulcers were then dressed with epifix number 6 to the bases, followed by saline, wound veil, steristrips and an offloading dry sterile dressing. If the dressings need reinforced or the top dressing needs changed, the dressing is not to be taken down past the layer of wound veil and steristrips. He was instructed to keep these areas offloaded as much as possible in order to help heal the ulcer sites. He is to continue to use his padded offloading boots with heel cut outs. He is to bring these to clinic with him next week to see if there is any possibility of offloading them further. He completed his prescription of Doxycycline. He was instructed to continue with a diet high in protein to help optimize ulcer healing. He was educated on all signs and symptoms of local and systemic infection and was instructed to go to the ER immediately should he notice any. All questions were answered to the patient's satisfaction. Patient will follow-up in clinic in 1 week for further treatment and evaluation, or sooner if needed.
--- NOTE | 2017-12-29 13:36 | PN.PCM_ITS ---
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 Status: Acute Current Visit: No Code(s): E11.621 - Type 2 diabetes mellitus with foot ulcer; L97.416 - Non-pressure chronic ulcer of right heel and midfoot with bone involvement without evidence of necrosis (4) Delayed wound healing Status: Acute Current Visit: No Code(s): T14.8XXD - Other injury of unspecified body region, subsequent encounter (5) Chronic incomplete quadriplegia Status: Acute Current Visit: No Code(s): G82.50 - Quadriplegia, unspecified (6) Malnutrition Status: Acute Current Visit: No Code(s): E46 - Unspecified protein-calorie malnutrition Type of Wound Date of Service: 12/29/17 Chief Complaint: Ulcer on right heel History of Wound: This is a 67-year-old white male who presents to the wound care center today for evaluation of a right heel ulcer. He has a past medical history as described above. The patient states that on the night of 06/06/2017, his heel protectors came off all night in bed and shortly after he noted an ulceration on his right heel and a purplish discoloration on his left heel. He states that there has been yellow drainage coming from his right heel and that yesterday he started using Granulex and Aquacel silver on the right heel. He denies any pain or foul-smelling discharge, however he does state that he has decreased sensation to his lower extremities due to his history of a spinal cord injury in high school. He currently has a suprapubic catheter as well due to his history of recurrent UTIs and obstructive uropathy. He also notes that his low air loss hospital bed is needing to be repaired so he is unable to use this at this time. The patient does state that he has a history of ulcerations on his right heel in the past where he had to be seen at a wound care center and ended up needing to have skin substitutes applied. He does note that he lives home alone and that he receives home health throughout the week. Patient was then referred to Dr. Gan at his office, who subsequently admitted the patient on Jul 04, for IV antibiotics and evaluation by ID. Infectious disease planned to d/c patient home on doxy 100mg bid, amoxicillin 500mg tid, and flagyl 500mg tid for planned 6 week course. He has since discharge been receiving daily dressing changes consisting of aquacel ag and a dry sterile dressing as well as wearing his PRAFO boots at all times. He otherwise denies any signs of systemic infection and denies any fever, chills, nausea, vomiting, chest pain or pressure, syncope or presyncopal episodes. Progress of Wound: Patient returns to wound healing center this week for continued treatment of right heel ulcer and right posterior calf ulcer. Patient continues to wear offloading padded boots with heel cut outs over the last week. He has kept his dressing intact since last visit. He says that with his condition, he does not know of any way to completely keep pressure off of the areas, but that he is doing his best. He denies any purulence to the area. He denies any feeling of nausea, vomiting, fever, or chills currently. - Physical Exam Vital Signs Temp Pulse Resp BP 97.5 F L 74 16 108/66 12/29/17 11:32 12/29/17 11:32 12/29/17 11:32 12/29/17 11:32 General: Alert, Oriented x3, Cooperative, No apparent distress Extremities: Capillary Refill Less than 3 Seconds, No Calf Tenderness - Negative Sarah Beth and Pretty sign, Diminished Peripheral Pulses Skin: Ulcer/ Wound - Ulcer to right posterior heel with fat layer exposed. Measurements are noted below. Very minor improvement in the ulcer site appreciated this week. The base continues to be a mixture of granular tissue, adherent slough, fibrin, as well as some surrounding hyperkeratotic tissue. Ulcer remains very close to the calcaneus at this time. There continues to be no malodor, no purulence, no extending cellulitis, no increase in warmth noted to the area today. Ulcer to the right posterior calf is also present. Measurements noted below. Slow healing continues to be appreciated to this area. The base continues to be a mixture of granular tissue, adherent slough, fibrin, as well as some very minor surrounding hyperkeratotic tissue. There continues to be no probing to bone, no tracking, no undermining, no purulence, no malodor, no extending cellulitis, and no increase in warmth to the ulcer site. Wound Measurements and Assessment WC - Nurse 1 - General Ulcer Measurement Start: 12/22/17 11:28 Freq: Status: Active Protocol: Activity Type Activity Date Activity User E-Sign Co-Sign Detail Recorded Client Recorded Date Recorded By Document 12/29/17 11:32 PA [id number] 12/29/17 11:50 PA 12/29/17 11:32 Wound Center Nurse 1 [Ulcer Assessment] #12 R Post LE -Combined with other wound No -Current Size (cm) - Length 2.5 -Current Size (cm) - Width 1.1 -Current Size (cm) - Depth 0.1 -Total Square Cm 2.75 -Photo Taken No -Undermining/Tunneling No -Circular Undermining No -Exudate Amt Small (1-33%) -Exudate Type Serosanguineous -Wound Margin Thickened -Granulation Amt Large (67-100%) -Granulation Quality [place] Red -Slough/Fibrin Yes -Necrosis Amt Small (1-33%) -Necrotic Tissue Type Adherent Slough -Structure Exposed Fascia Fat Layer Exposed -Texture (Francia-wound Skin Appearance) Assessed -Moisture (Francia-wound Skin Appearance Assessed ) -Color (Francia-wound Skin Appearance) Assessed -Temperature (Francia-wound Skin No Abnormality Appearance) (Pt Warm) -Tenderness on Palpation (Francia-wound No Skin Appearance) -Ulcer Cleansing Rinsed/ Irrigated with Saline -Foul Odor after Cleansing No -Anesthetic Used 4% Lidocaine Solution #11- RT HEEL -Combined with other wound No -Current Size (cm) - Length 2 -Current Size (cm) - Width 1.1 -Current Size (cm) - Depth 0.1 -Total Square Cm 2.2 -Photo Taken No -Tunneling No -Undermining/Tunneling No -Circular Undermining No -Exudate Amt Small (1-33%) -Exudate Type Serosanguineous -Wound Margin Flat & Intact -Granulation Amt Small (1-33%) -Granulation Quality Pale -Slough/Fibrin Yes -Necrosis Amt Medium (34-66%) -Necrotic Tissue Type Eschar -Texture (Francia-wound Skin Appearance) Assessed -Moisture (Francia-wound Skin Appearance Assessed ) Dry/Scaly -Color (Francia-wound Skin Appearance) Assessed -Temperature (Francia-wound Skin No Abnormality Appearance) (Pt Warm) -Tenderness on Palpation (Francia-wound No Skin Appearance) -Ulcer Cleansing Rinsed/ Irrigated with Saline -Foul Odor after Cleansing No -Anesthetic Used 4% Lidocaine Solution [Edema Assessment] -Right Calf (cm) 28 -Right Ankle (cm) 20 WC - Nurse 2 - General Ulcer CM Notes Start: 12/22/17 11:28 Freq: Status: Active Protocol: Activity Type Activity Date Activity User E-Sign Co-Sign Detail Recorded Client Recorded Date Recorded By Document 12/29/17 12:11 CS [id number] 12/29/17 12:15 CS 12/29/17 12:11 Wound Center Nurse 2 [Procedure/Treatment] #12 R Post LE -Time 12:12 -Correct Patient Yes -Correct Side, Site, Position Yes -Correct Procedure Yes -Procedure Performed Yes -Type of Procedure Debridement -Clinical Debridement Subcutaneous -Post Debridement Size (cm) - Length 2.8 -Post Debridement Size (cm) - Width 1.0 -Post Debridement Size (cm) - Depth 0.3 -Total Square Cm 2.80 -Wound/Ulcer Outcome Not Healed -Ulcer Cleansing Rinsed/ Irrigated with Saline -Foul Odor after Cleansing No -Bioengineered Tissue Yes -Type of bioengineered Tissue EPIFIX -Expiration Date 09/20/22 -Product Lot Number [id number] -Percent Used 75 -Saline Lot Number [id number] -Bleeding Controlled with Pressure -Treatment Response Procedure Tolerated Well #11- RT HEEL -Time 12:13 -Correct Patient Yes -Correct Side, Site, Position Yes -Correct Procedure Yes -Procedure Performed Yes -Type of Procedure Debridement -Clinical Debridement Subcutaneous -Post Debridement Size (cm) - Length 1.5 -Post Debridement Size (cm) - Width 0.8 -Post Debridement Size (cm) - Depth 0.1 -Total Square Cm 1.20 -Wound/Ulcer Outcome Not Healed -Ulcer Cleansing Rinsed/ Irrigated with Saline -Foul Odor after Cleansing No -Bioengineered Tissue No -Type of bioengineered Tissue EPIFIX -Expiration Date 09/20/22 -Product Lot Number [id number] -Percent Used 25 -Saline Lot Number [id number] -Bleeding Controlled with Pressure -Treatment Response Procedure Tolerated Well [See Physician Procedure note for Specifics] Pain Scale: 0-10 Numeric [Pain] -Is Patient Pain Free? Yes Musculoskeletal: No Tenderness to Palpation of Joints or Extremities, Muscle Wasting Neurological: - - Patient is an incomplete quadriplegic with very slight sensation in some areas throughout the lower extremity Psych/Mental Status: Normal Affect, Appropriate Debridement Note Post-Debridement Measurements/Treatment WC - Nurse 2 - General Ulcer CM Notes Start: 12/22/17 11:28 Freq: Status: Active Protocol: Activity Type Activity Date Activity User E-Sign Co-Sign Detail Recorded Client Recorded Date Recorded By Document 12/22/17 12:14 [id number] 12/22/17 12:18 CS Document 12/29/17 12:11 CS [id number] 12/29/17 12:15 CS 12/22/17 12/29/17 12:14 12:11 Wound Center Nurse 2 #12 R Post LE -Time 11:45 12:12 -Correct Patient Yes Yes -Correct Side, Site, Position Yes Yes -Correct Procedure Yes Yes -Procedure Performed Yes Yes -Type of Procedure Debridement Debridement -Clinical Debridement Subcutaneous Subcutaneous -Post Debridement Size (cm) - Length 2.6 2.8 -Post Debridement Size (cm) - Width 1.1 1.0 -Post Debridement Size (cm) - Depth 0.3 0.3 -Total Square Cm 2.86 2.80 -Wound/Ulcer Outcome Not Healed Not Healed -Ulcer Cleansing Not Cleansed Rinsed/ Irrigated with Saline -Foul Odor after Cleansing No No -Bioengineered Tissue Yes Yes -Type of bioengineered Tissue EPIFIX EPIFIX -Expiration Date 09/20/22 09/20/22 -Product Lot Number [id number] -Percent Used 75 75 -Saline Lot Number [id number] -Bleeding Controlled with Pressure Pressure -Treatment Response Procedure Procedure Tolerated Well Tolerated Well #11- RT HEEL -Time 11:45 12:13 -Correct Patient Yes Yes -Correct Side, Site, Position Yes Yes -Correct Procedure Yes Yes -Procedure Performed Yes Yes -Type of Procedure Debridement Debridement -Clinical Debridement Subcutaneous Subcutaneous -Post Debridement Size (cm) - Length 1.8 1.5 -Post Debridement Size (cm) - Width 1.8 0.8 -Post Debridement Size (cm) - Depth 0.1 0.1 -Total Square Cm 3.24 1.20 -Wound/Ulcer Outcome Not Healed Not Healed -Ulcer Cleansing Not Cleansed Rinsed/ Irrigated with Saline -Foul Odor after Cleansing No No -Bioengineered Tissue Yes No -Type of bioengineered Tissue EPIFIX EPIFIX -Expiration Date 09/20/22 09/20/22 -Product Lot Number [id number] -Percent Used 25 25 -Saline Lot Number [id number] -Bleeding Controlled with Pressure Pressure -Treatment Response Procedure Procedure Tolerated Well Tolerated Well Pain Scale: 0-10 Numeric Is Patient Pain Free? Yes Yes Wound debrided: Right posterior heel Laterality: Right Type of Debridement: Excisional debridement Anesthesia Used: 4% Lidocaine Solution Depth: in the subcutaneous layer Percentage of wound debrided: 100 Instrument Used: #15 blade Tissue Removed: Adherent slough, fibrin, hyperkeratotic tissue Severity: Fat Layer Exposed Amount of bleeding with debridement: Mild Bleeding Controlled with: Pressure Patient tolerated procedure well - Additional Wound Wound debrided: Right posterior calf Laterality: Right Type of Debridement: Excisional debridement Anesthesia Used: 4% Lidocaine Solution Depth: in the subcutaneous layer Percentage of wound debrided: 100 Instrument Used: 3mm curette Tissue Removed: Adherent slough, fibrin, hyperkeratotic tissue Severity: Fat Layer Exposed Amount of bleeding with debridement: Mild Bleeding Controlled with: Pressure Patient tolerated procedure: Patient tolerated procedure well Assessment/Plan Assessment: Ulcer to posterior right heel. Plan: Patient was again examined and evaluated in detail today. The aforementioned ulcers were both subcutaneously debrided as noted in the clinical panel again this week. The ulcers were then cleansed carefully cleansed. The right posterior heel and calf ulcers were then dressed with epifix number 6 to the bases, followed by saline, wound veil, steristrips and an offloading dry sterile dressing. If the dressings need reinforced or the top dressing needs changed, the dressing is not to be taken down past the layer of wound veil and steristrips. He was instructed to keep these areas offloaded as much as possible in order to help heal the ulcer sites. He is to continue to use his padded offloading boots with heel cut outs. He is to bring these to clinic with him next week to see if there is any possibility of offloading them further. He completed his prescription of Doxycycline. He was instructed to continue with a diet high in protein to help optimize ulcer healing. He was educated on all signs and symptoms of local and systemic infection and was instructed to go to the ER immediately should he notice any. All questions were answered to the patient's satisfaction. Patient will follow-up in clinic in 1 week for further treatment and evaluation, or sooner if needed.
[2018-01-05 11:17] VITALS: BP 83/61; PULSE 78; RESP 18; TEMP 36.2; BMI 26.6
--- NOTE | 2018-01-05 11:48 | PCM.WC.PN ---
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 Status: Acute Current Visit: No Code(s): E11.621 - Type 2 diabetes mellitus with foot ulcer; L97.416 - Non-pressure chronic ulcer of right heel and midfoot with bone involvement without evidence of necrosis (4) Delayed wound healing Status: Acute Current Visit: No Code(s): T14.8XXD - Other injury of unspecified body region, subsequent encounter (5) Chronic incomplete quadriplegia Status: Acute Current Visit: No Code(s): G82.50 - Quadriplegia, unspecified (6) Malnutrition Status: Acute Current Visit: No Code(s): E46 - Unspecified protein-calorie malnutrition Type of Wound Date of Service: 01/05/18 Chief Complaint: Ulcer on right heel History of Wound: This is a 67-year-old white male who presents to the wound care center today for evaluation of a right heel ulcer. He has a past medical history as described above. The patient states that on the night of 06/06/2017, his heel protectors came off all night in bed and shortly after he noted an ulceration on his right heel and a purplish discoloration on his left heel. He states that there has been yellow drainage coming from his right heel and that yesterday he started using Granulex and Aquacel silver on the right heel. He denies any pain or foul-smelling discharge, however he does state that he has decreased sensation to his lower extremities due to his history of a spinal cord injury in high school. He currently has a suprapubic catheter as well due to his history of recurrent UTIs and obstructive uropathy. He also notes that his low air loss hospital bed is needing to be repaired so he is unable to use this at this time. The patient does state that he has a history of ulcerations on his right heel in the past where he had to be seen at a wound care center and ended up needing to have skin substitutes applied. He does note that he lives home alone and that he receives home health throughout the week. Patient was then referred to Dr. Gan at his office, who subsequently admitted the patient on Jul 04, for IV antibiotics and evaluation by ID. Infectious disease planned to d/c patient home on doxy 100mg bid, amoxicillin 500mg tid, and flagyl 500mg tid for planned 6 week course. He has since discharge been receiving daily dressing changes consisting of aquacel ag and a dry sterile dressing as well as wearing his PRAFO boots at all times. He otherwise denies any signs of systemic infection and denies any fever, chills, nausea, vomiting, chest pain or pressure, syncope or presyncopal episodes. Progress of Wound: Patient returns to wound healing center this week for continued treatment of right heel ulcer and right posterior calf ulcer. Patient continues to wear offloading padded boots with heel cut outs over the last week. He has kept his dressing intact since last visit. He says that with his condition, he does not know of any way to completely keep pressure off of the areas, but that he is doing his best. He denies any purulence to the area. He denies any feeling of nausea, vomiting, fever, or chills currently. - Physical Exam Vital Signs Temp Pulse Resp BP 97.1 F L 78 18 83/61 L 01/05/18 11:17 01/05/18 11:17 01/05/18 11:17 01/05/18 11:17 General: Alert, Oriented x3, Cooperative, No apparent distress Extremities: Capillary Refill Less than 3 Seconds, No Calf Tenderness - Negative Sarah Beth and Pretty sign, Diminished Peripheral Pulses Skin: Ulcer/ Wound - Ulcer to right posterior heel with fat layer exposed. Measurements are noted below. Slight improvement in appearance noted again this week. The base continues to be a mixture of granular tissue, adherent slough, fibrin as well as some slight surrounding hyperkeratotic tissue. Ulcer base remains close to the calcaneus. There continues to be no malodor, no purulence, no extending cellulitis, no increase in warmth appreciated today. Ulcer to right posterior calf noted. Measurements noted below. Very slight improvement again noted to this area again this week as well. The base remains a mixture of granular tissue, adherent slough, fibrin, as well as some slight surrounding hyperkeratotic tissue. There continues to be no probing to bone, no tracking, no undermining, no purulence, no malodor, no extending cellulitis, and no increase in warmth appreciated at this time. Wound Measurements and Assessment WC - Nurse 1 - General Ulcer Measurement Start: 12/22/17 11:28 Freq: Status: Active Protocol: Activity Type Activity Date Activity User E-Sign Co-Sign Detail Recorded Client Recorded Date Recorded By Document 01/05/18 11:17 [id number] 01/05/18 11:20 01/05/18 11:17 Wound Center Nurse 1 [Ulcer Assessment] #12 R Post LE -Combined with other wound No -Current Size (cm) - Length 2.7 -Current Size (cm) - Width 1.2 -Current Size (cm) - Depth 0.2 -Total Square Cm 3.24 -Photo Taken No -Epithelialization Small 1-33% -Tunneling No -Undermining/Tunneling No -Circular Undermining No -Classification - Thickness Full Thickness without Exposed Support Structure -Exudate Amt Small (1-33%) -Exudate Type Serosanguineous -Wound Margin Distinct, Outline Attached -Granulation Amt Large (67-100%) -Granulation Quality Red -Slough/Fibrin Yes -Necrosis Amt Small (1-33%) -Necrotic Tissue Type Adherent Slough -Structure Exposed Fascia Fat Layer Exposed -Texture (Francia-wound Skin Appearance) Assessed Scarring -Moisture (Francia-wound Skin Appearance No Abnormality ) Assessed -Color (Francia-wound Skin Appearance) Assessed Erythema -Temperature (Francia-wound Skin No Abnormality Appearance) (Pt Warm) -Tenderness on Palpation (Francia-wound No Skin Appearance) -Ulcer Cleansing Rinsed/ Irrigated with Saline -Foul Odor after Cleansing No -Anesthetic Used 5% Lidocaine Gel #11- RT HEEL -Combined with other wound No -Current Size (cm) - Length 0.5 -Current Size (cm) - Width 1.0 -Current Size (cm) - Depth 0.2 -Total Square Cm 0.50 -Photo Taken No -Epithelialization None Present -Tunneling No -Undermining/Tunneling No -Circular Undermining No -Classification - Thickness Full Thickness without Exposed Support Structure -Exudate Amt Small (1-33%) -Exudate Type Serosanguineous -Wound Margin Distinct, Outline Attached -Granulation Amt Medium (34-66%) -Granulation Quality Pale [place] -Slough/Fibrin Yes -Necrosis Amt Medium (34-66%) -Necrotic Tissue Type Adherent Slough -Structure Exposed Fascia Fat Layer Exposed -Texture (Francia-wound Skin Appearance) Assessed Callus Scarring -Moisture (Francia-wound Skin Appearance Dry/Scaly ) -Color (Francia-wound Skin Appearance) Assessed Erythema -Temperature (Francia-wound Skin No Abnormality Appearance) (Pt Warm) -Tenderness on Palpation (Francia-wound No Skin Appearance) -Ulcer Cleansing Rinsed/ Irrigated with Saline -Foul Odor after Cleansing No -Anesthetic Used 5% Lidocaine Gel [Edema Assessment] -Lower Limb Edema Present No Musculoskeletal: No Tenderness to Palpation of Joints or Extremities, Muscle Wasting Neurological: - - Patient is an incomplete quadriplegic with very slight sensation in some areas throughout the lower extremity Psych/Mental Status: Normal Affect, Appropriate Debridement Note Post-Debridement Measurements/Treatment WC - Nurse 2 - General Ulcer CM Notes Start: 12/22/17 11:28 Freq: Status: Active Protocol: Activity Type Activity Date Activity User E-Sign Co-Sign Detail Recorded Client Recorded Date Recorded By Document 12/22/17 12:14 [id number] 12/22/17 12:18 CS Document 12/29/17 12:11 [id number] 12/29/17 12:15 CS 12/22/17 12/29/17 12:14 12:11 Wound Center Nurse 2 #12 R Post LE -Time 11:45 12:12 -Correct Patient Yes Yes -Correct Side, Site, Position Yes Yes -Correct Procedure Yes Yes -Procedure Performed Yes Yes -Type of Procedure Debridement Debridement -Clinical Debridement Subcutaneous Subcutaneous -Post Debridement Size (cm) - Length 2.6 2.8 -Post Debridement Size (cm) - Width 1.1 1.0 -Post Debridement Size (cm) - Depth 0.3 0.3 -Total Square Cm 2.86 2.80 -Wound/Ulcer Outcome Not Healed Not Healed -Ulcer Cleansing Not Cleansed Rinsed/ Irrigated with Saline -Foul Odor after Cleansing No No -Bioengineered Tissue Yes Yes -Type of bioengineered Tissue EPIFIX EPIFIX -Expiration Date 09/20/22 09/20/22 -Product Lot Number [id number] -Percent Used 75 75 -Saline Lot Number [id number] -Bleeding Controlled with Pressure Pressure -Treatment Response Procedure Procedure Tolerated Well Tolerated Well #11- RT HEEL -Time 11:45 12:13 -Correct Patient Yes Yes -Correct Side, Site, Position Yes Yes -Correct Procedure Yes Yes -Procedure Performed Yes Yes -Type of Procedure Debridement Debridement -Clinical Debridement Subcutaneous Subcutaneous -Post Debridement Size (cm) - Length 1.8 1.5 -Post Debridement Size (cm) - Width 1.8 0.8 -Post Debridement Size (cm) - Depth 0.1 0.1 -Total Square Cm 3.24 1.20 -Wound/Ulcer Outcome Not Healed Not Healed -Ulcer Cleansing Not Cleansed Rinsed/ Irrigated with Saline -Foul Odor after Cleansing No No -Bioengineered Tissue Yes No -Type of bioengineered Tissue EPIFIX EPIFIX -Expiration Date 09/20/22 09/20/22 -Product Lot Number [id number] -Percent Used 25 25 -Saline Lot Number [id number] -Bleeding Controlled with Pressure Pressure -Treatment Response Procedure Procedure Tolerated Well Tolerated Well Pain Scale: 0-10 Numeric Is Patient Pain Free? Yes Yes Wound debrided: Right posterior heel Laterality: Right Type of Debridement: Excisional debridement Anesthesia Used: 4% Lidocaine Solution Depth: in the subcutaneous layer Percentage of wound debrided: 100 Instrument Used: #15 blade Tissue Removed: Adherent slough, fibrin, hyperkeratotic tissue Severity: Fat Layer Exposed Amount of bleeding with debridement: Mild Bleeding Controlled with: Pressure Patient tolerated procedure well - Additional Wound Wound debrided: Right posterior calf Laterality: Right Type of Debridement: Excisional debridement Anesthesia Used: 4% Lidocaine Solution Depth: in the subcutaneous layer Percentage of wound debrided: 100 Instrument Used: 3mm curette Tissue Removed: Adherent slough, fibrin, hyperkeratotic tissue Severity: Fat Layer Exposed Amount of bleeding with debridement: Mild Bleeding Controlled with: Pressure Patient tolerated procedure: Patient tolerated procedure well Assessment/Plan Assessment: Ulcer to posterior right heel. Plan: Patient was again examined and evaluated in detail today. The aforementioned ulcers were both subcutaneously debrided as noted in the clinical panel again this week. The ulcers were then cleansed carefully cleansed. The right posterior heel and calf ulcers were then dressed with epifix number 7 to the bases, followed by saline, wound veil, steristrips and an offloading dry sterile dressing. If the dressings need reinforced or the top dressing needs changed, the dressing is not to be taken down past the layer of wound veil and steristrips. He was instructed to keep these areas offloaded as much as possible in order to help heal the ulcer sites. He is to continue to use his padded offloading boots with heel cut outs. Patient bought his old PRAFO boot with him, but not the offloading boots he is currently wearing. He was instructed to continue with a diet high in protein to help optimize ulcer healing. He was educated on all signs and symptoms of local and systemic infection and was instructed to go to the ER immediately should he notice any. All questions were answered to the patient's satisfaction. Patient will follow-up in clinic in 1 week for further treatment and evaluation, or sooner if needed.
[2018-01-12 10:51] VITALS: BMI 26.6
--- NOTE | 2018-01-12 11:49 | PCM.WC.PN ---
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 Status: Acute Current Visit: No Code(s): E11.621 - Type 2 diabetes mellitus with foot ulcer; L97.416 - Non-pressure chronic ulcer of right heel and midfoot with bone involvement without evidence of necrosis (4) Delayed wound healing Status: Acute Current Visit: No Code(s): T14.8XXD - Other injury of unspecified body region, subsequent encounter (5) Chronic incomplete quadriplegia Status: Acute Current Visit: No Code(s): G82.50 - Quadriplegia, unspecified (6) Malnutrition Status: Acute Current Visit: No Code(s): E46 - Unspecified protein-calorie malnutrition Type of Wound Date of Service: 01/12/18 Chief Complaint: Ulcer on right heel History of Wound: This is a 67-year-old white male who presents to the wound care center today for evaluation of a right heel ulcer. He has a past medical history as described above. The patient states that on the night of 06/06/2017, his heel protectors came off all night in bed and shortly after he noted an ulceration on his right heel and a purplish discoloration on his left heel. He states that there has been yellow drainage coming from his right heel and that yesterday he started using Granulex and Aquacel silver on the right heel. He denies any pain or foul-smelling discharge, however he does state that he has decreased sensation to his lower extremities due to his history of a spinal cord injury in high school. He currently has a suprapubic catheter as well due to his history of recurrent UTIs and obstructive uropathy. He also notes that his low air loss hospital bed is needing to be repaired so he is unable to use this at this time. The patient does state that he has a history of ulcerations on his right heel in the past where he had to be seen at a wound care center and ended up needing to have skin substitutes applied. He does note that he lives home alone and that he receives home health throughout the week. Patient was then referred to Dr. Gan at his office, who subsequently admitted the patient on Jul 04, for IV antibiotics and evaluation by ID. Infectious disease planned to d/c patient home on doxy 100mg bid, amoxicillin 500mg tid, and flagyl 500mg tid for planned 6 week course. He has since discharge been receiving daily dressing changes consisting of aquacel ag and a dry sterile dressing as well as wearing his PRAFO boots at all times. He otherwise denies any signs of systemic infection and denies any fever, chills, nausea, vomiting, chest pain or pressure, syncope or presyncopal episodes. Progress of Wound: Patient returns to wound healing center this week for continued treatment of right heel ulcer and right posterior calf ulcer. Patient continues to wear offloading padded boots with heel cut outs over the last week. He has kept his dressing intact since last visit. He says that with his condition, he does not know of any way to completely keep pressure off of the areas, but that he is doing his best. He denies any purulence to the area. Ulcer sites remain stable. He denies any feeling of nausea, vomiting, fever, or chills currently. - Physical Exam Vital Signs Temp Pulse Resp BP 97.1 F L 78 18 83/61 L 01/05/18 11:17 01/05/18 11:17 01/05/18 11:17 01/05/18 11:17 General: Alert, Oriented x3, Cooperative, No apparent distress Extremities: Capillary Refill Less than 3 Seconds, No Calf Tenderness - Negative Sarah Beth and Pretty sign, Diminished Peripheral Pulses Skin: Ulcer/ Wound - Ulcer to right posterior with fat layer exposed. Measurements are noted below. Ulcer appears stable since last week. Base continues to be a mixture of granular tissue, adherent slough, fibrin as well as surrounding hyperkeratotic tissue. Ulcer base close to the calcaneus. There continues to be no malodor, no purulence, no extending cellulitis, no increase in warmth appreciated today. Ulcer to right posterior calf noted measurements documented below. Slight improvement noted to the ulcer base this week. Patient remains a mixture of granular tissue, adherent slough, fibrin, as well as some slight hyperkeratotic tissue. There continues to be no probing to bone, no tracking, no undermining, no purulence, no malodor, no extending cellulitis, and no increase in warmth appreciated at this time to this ulcer site. Wound Measurements and Assessment WC - Nurse 1 - General Ulcer Measurement Start: 12/22/17 11:28 Freq: Status: Active Protocol: Activity Type Activity Date Activity User E-Sign Co-Sign Detail Recorded Client Recorded Date Recorded By Document 01/12/18 10:51 [facility] [id number] 01/12/18 11:04 [facility] 01/12/18 10:51 Wound Center Nurse 1 [Ulcer Assessment] #12 R Post LE -Combined with other wound No -Current Size (cm) - Length 2.8 -Current Size (cm) - Width 0.7 -Current Size (cm) - Depth 0.2 -Total Square Cm 1.96 -Photo Taken No -Epithelialization Small 1-33% -Tunneling No -Undermining/Tunneling No -Circular Undermining No -Exudate Amt Small (1-33%) -Exudate Type Serous -Wound Margin Distinct, Outline Attached -Granulation Amt Medium (34-66%) -Granulation Quality Pale Red -Slough/Fibrin Yes -Necrosis Amt Small (1-33%) -Necrotic Tissue Type Adherent Slough -Texture (Francia-wound Skin Appearance) Scarring -Moisture (Francia-wound Skin Appearance Dry/Scaly ) -Color (Francia-wound Skin Appearance) Erythema -Temperature (Francia-wound Skin No Abnormality Appearance) (Pt Warm) -Tenderness on Palpation (Francia-wound No Skin Appearance) -Ulcer Cleansing Rinsed/ Irrigated with Saline -Foul Odor after Cleansing No -Anesthetic Used 5% Lidocaine Gel #11- RT HEEL -Combined with other wound No -Current Size (cm) - Length 1.7 -Current Size (cm) - Width 1.2 -Current Size (cm) - Depth 0.1 -Total Square Cm 2.04 -Photo Taken No -Epithelialization Medium 34-66% -Tunneling No -Undermining/Tunneling No -Circular Undermining No -Exudate Amt Small (1-33%) -Exudate Type Serous -Wound Margin Distinct, Outline Attached -Granulation Amt None Present (0 %) -Necrosis Amt Medium (34-66%) -Necrotic Tissue Type Adherent Slough -Texture (Francia-wound Skin Appearance) Callus Scarring -Moisture (Francia-wound Skin Appearance Dry/Scaly ) -Color (Francia-wound Skin Appearance) Assessed Erythema -Temperature (Francia-wound Skin No Abnormality Appearance) (Pt Warm) -Tenderness on Palpation (Frnacia-wound No Skin Appearance) -Ulcer Cleansing Rinsed/ Irrigated with Saline -Foul Odor after Cleansing No -Anesthetic Used 5% Lidocaine Gel Musculoskeletal: No Tenderness to Palpation of Joints or Extremities, Muscle Wasting Neurological: - - Patient is an incomplete quadriplegic with very slight sensation in some areas throughout the lower extremity Psych/Mental Status: Normal Affect, Appropriate Debridement Note Post-Debridement Measurements/Treatment WC - Nurse 2 - General Ulcer CM Notes Start: 12/22/17 11:28 Freq: Status: Active Protocol: Activity Type Activity Date Activity User E-Sign Co-Sign Detail Recorded Client Recorded Date Recorded By Document 12/22/17 12:14 [id number] 12/22/17 12:18 CS Document 12/29/17 12:11 [id number] 12/29/17 12:15 CS Document 01/05/18 11:48 [id number] 01/05/18 11:52 TM 12/22/17 12/29/17 01/05/18 12:14 12:11 11:48 Wound Center Nurse 2 #12 R Post LE -Time 11:45 12:12 11:48 -Correct Patient Yes Yes Yes -Correct Side, Site, Position Yes Yes Yes -Correct Procedure Yes Yes Yes -Procedure Performed Yes Yes Yes -Type of Procedure Debridement Debridement Debridement -Clinical Debridement Subcutaneous Subcutaneous Subcutaneous -Post Debridement Size (cm) - Length 2.6 2.8 2.9 -Post Debridement Size (cm) - Width 1.1 1.0 1.2 -Post Debridement Size (cm) - Depth 0.3 0.3 0.3 -Total Square Cm 2.86 2.80 3.48 -Wound/Ulcer Outcome Not Healed Not Healed Not Healed -Ulcer Cleansing Not Cleansed Rinsed/ Rinsed/ Irrigated with Irrigated with Saline Saline -Foul Odor after Cleansing No No No -Bioengineered Tissue Yes Yes Yes -Type of bioengineered Tissue EPIFIX EPIFIX EPIFIX -Expiration Date 09/20/22 09/20/22 10/21/22 -Product Lot Number [id number] -Percent Used 75 75 50 -Saline Lot Number [id number] -Topical Lidocaine (%) 5 -Bleeding Controlled with Pressure Pressure Pressure -Treatment Response Procedure Procedure Procedure Tolerated Well Tolerated Well Tolerated Well #11- RT HEEL -Time 11:45 12:13 11:50 -Correct Patient Yes Yes Yes -Correct Side, Site, Position Yes Yes Yes -Correct Procedure Yes Yes Yes -Procedure Performed Yes Yes Yes -Type of Procedure Debridement Debridement Debridement -Clinical Debridement Subcutaneous Subcutaneous Subcutaneous -Post Debridement Size (cm) - Length 1.8 1.5 1.6 -Post Debridement Size (cm) - Width 1.8 0.8 1.0 -Post Debridement Size (cm) - Depth 0.1 0.1 0.1 -Total Square Cm 3.24 1.20 1.60 -Wound/Ulcer Outcome Not Healed Not Healed Not Healed -Ulcer Cleansing Not Cleansed Rinsed/ Rinsed/ Irrigated with Irrigated with Saline Saline -Foul Odor after Cleansing No No No -Bioengineered Tissue Yes No Yes -Type of bioengineered Tissue EPIFIX EPIFIX EPIFIX -Expiration Date 09/20/22 09/20/22 10/21/22 -Product Lot Number [id number] -Percent Used 25 25 50 -Saline Lot Number [id number] -Topical Lidocaine (%) 5 -Bleeding Controlled with Pressure Pressure Pressure -Treatment Response Procedure Procedure Procedure Tolerated Well Tolerated Well Tolerated Well Pain Scale: 0-10 Numeric Is Patient Pain Free? Yes Yes Yes Wound debrided: Right posterior heel Laterality: Right Type of Debridement: Excisional debridement Anesthesia Used: 4% Lidocaine Solution Depth: in the subcutaneous layer Percentage of wound debrided: 100 Instrument Used: #15 blade Tissue Removed: Adherent slough, fibrin, hyperkeratotic tissue Severity: Fat Layer Exposed Amount of bleeding with debridement: Mild Bleeding Controlled with: Pressure Patient tolerated procedure well - Additional Wound Wound debrided: Right posterior calf Laterality: Right Type of Debridement: Excisional debridement Anesthesia Used: 4% Lidocaine Solution Depth: in the subcutaneous layer Percentage of wound debrided: 100 Instrument Used: 3mm curette Tissue Removed: Adherent slough, fibrin, hyperkeratotic tissue Severity: Fat Layer Exposed Amount of bleeding with debridement: Mild Bleeding Controlled with: Pressure Patient tolerated procedure: Patient tolerated procedure well Assessment/Plan Assessment: Ulcer to posterior right heel. Plan: Patient was again examined and evaluated in detail today. The aforementioned ulcers were both subcutaneously debrided as noted in the clinical panel again this week. The ulcers were then cleansed carefully cleansed. The right posterior heel and calf ulcers were then dressed with epifix number 8 to the bases, followed by saline, wound veil, steristrips and an offloading dry sterile dressing. If the dressings need reinforced or the top dressing needs changed, the dressing is not to be taken down past the layer of wound veil and steristrips. He was instructed to keep these areas offloaded as much as possible in order to help heal the ulcer sites. He is to continue to use his padded offloading boots with heel cut outs. We will continue to think of ways to promote offloading to the ulcer sites. He was instructed to continue with a diet high in protein to help optimize ulcer healing. He was educated on all signs and symptoms of local and systemic infection and was instructed to go to the ER immediately should he notice any. All questions were answered to the patient's satisfaction. Patient will follow-up in clinic in 1 week for further treatment and evaluation, or sooner if needed.
[2018-01-19 11:47] VITALS: BP 99/66; PULSE 74; RESP 18; TEMP 36.3; BMI 26.6
--- NOTE | 2018-01-19 14:16 | PCM.WC.PN ---
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 Status: Acute Current Visit: No Code(s): E11.621 - Type 2 diabetes mellitus with foot ulcer; L97.416 - Non-pressure chronic ulcer of right heel and midfoot with bone involvement without evidence of necrosis (4) Delayed wound healing Status: Acute Current Visit: No Code(s): T14.8XXD - Other injury of unspecified body region, subsequent encounter (5) Chronic incomplete quadriplegia Status: Acute Current Visit: No Code(s): G82.50 - Quadriplegia, unspecified (6) Malnutrition Status: Acute Current Visit: No Code(s): E46 - Unspecified protein-calorie malnutrition Type of Wound Date of Service: 01/19/18 Chief Complaint: Ulcer on right heel History of Wound: This is a 67-year-old white male who presents to the wound care center today for evaluation of a right heel ulcer. He has a past medical history as described above. The patient states that on the night of 06/06/2017, his heel protectors came off all night in bed and shortly after he noted an ulceration on his right heel and a purplish discoloration on his left heel. He states that there has been yellow drainage coming from his right heel and that yesterday he started using Granulex and Aquacel silver on the right heel. He denies any pain or foul-smelling discharge, however he does state that he has decreased sensation to his lower extremities due to his history of a spinal cord injury in high school. He currently has a suprapubic catheter as well due to his history of recurrent UTIs and obstructive uropathy. He also notes that his low air loss hospital bed is needing to be repaired so he is unable to use this at this time. The patient does state that he has a history of ulcerations on his right heel in the past where he had to be seen at a wound care center and ended up needing to have skin substitutes applied. He does note that he lives home alone and that he receives home health throughout the week. Patient was then referred to Dr. Gan at his office, who subsequently admitted the patient on Jul 04, for IV antibiotics and evaluation by ID. Infectious disease planned to d/c patient home on doxy 100mg bid, amoxicillin 500mg tid, and flagyl 500mg tid for planned 6 week course. He has since discharge been receiving daily dressing changes consisting of aquacel ag and a dry sterile dressing as well as wearing his PRAFO boots at all times. He otherwise denies any signs of systemic infection and denies any fever, chills, nausea, vomiting, chest pain or pressure, syncope or presyncopal episodes. Progress of Wound: Patient returns to wound healing center this week for continued treatment of right heel ulcer and right posterior calf ulcer. Patient continues to wear offloading padded boots with heel cut outs over the last week. He has kept his dressing intact since last visit. He says that with his condition, he does not know of any way to completely keep pressure off of the areas, but that he is doing his best. He says he is going to buy some waffle padding and cut areas out in order to offload the ulcer sites more. He denies any purulence to the area. Ulcer sites remain stable. He denies any feeling of nausea, vomiting, fever, or chills currently. - Physical Exam Vital Signs Temp Pulse Resp BP 97.3 F L 74 18 99/66 01/19/18 11:47 01/19/18 11:47 01/19/18 11:47 01/19/18 11:47 General: Alert, Oriented x3, Cooperative, No apparent distress Extremities: Capillary Refill Less than 3 Seconds, No Calf Tenderness - Negative Sarah Beth and Pretty sign, Diminished Peripheral Pulses Skin: Ulcer/ Wound - Ulcer to right posterior he will with fat layer exposed. Measurements noted below. Ulcer remains fairly stable since last week. The base continues to be a mixture of granular tissue, adherent slough, fibrin, as well as some surrounding hyperkeratotic tissue. Area remains close to contact with calcaneus. There continues to be no malodor, no purulence, no extending cellulitis, no increasing warmth appreciated to this area today. The ulcer to the right posterior calf is also noted with measurements below. Slight improvement to this area noted again this week as well. The base remains a mixture of granular tissue, adherent slough, fibrin, as well as some slight hyperkeratotic tissue surrounding the site. There continues to be no probing to bone, no tracking, no undermining, no purulence, no malodor, no extending cellulitis, and no increase in warmth appreciated at this time. Wound Measurements and Assessment WC - Nurse 1 - General Ulcer Measurement Start: 12/22/17 11:28 Freq: Status: Active Protocol: Activity Type Activity Date Activity User E-Sign Co-Sign Detail Recorded Client Recorded Date Recorded By Document 01/19/18 11:47 TM [id number] 01/19/18 11:50 TM 01/19/18 11:47 Wound Center Nurse 1 [Ulcer Assessment] #12 R Post LE -Combined with other wound No -Current Size (cm) - Length 2.5 -Current Size (cm) - Width 1.0 -Current Size (cm) - Depth 0.2 -Total Square Cm 2.50 -Photo Taken No -Epithelialization Small 1-33% -Tunneling No -Undermining/Tunneling No -Circular Undermining No -Classification - Thickness Full Thickness without Exposed Support Structure -Exudate Amt Medium (34-66%) -Exudate Type Serosanguineous -Wound Margin Distinct, Outline Attached -Granulation Amt Large (67-100%) -Granulation Quality Red -Slough/Fibrin Yes -Necrosis Amt Small (1-33%) -Necrotic Tissue Type Adherent Slough -Structure Exposed Fascia Fat Layer Exposed -Texture (Francia-wound Skin Appearance) Assessed Scarring -Moisture (Francia-wound Skin Appearance No Abnormality ) Assessed -Color (Francia-wound Skin Appearance) Assessed Erythema -Temperature (Francia-wound Skin No Abnormality Appearance) (Pt Warm) -Tenderness on Palpation (Francia-wound No Skin Appearance) -Ulcer Cleansing Rinsed/ Irrigated with Saline -Foul Odor after Cleansing No -Anesthetic Used 5% Lidocaine Gel #11- RT HEEL -Combined with other wound No -Current Size (cm) - Length 0.5 -Current Size (cm) - Width 0.5 -Current Size (cm) - Depth 0.1 -Total Square Cm 0.25 -Photo Taken No -Epithelialization Small 1-33% -Tunneling No -Undermining/Tunneling No -Circular Undermining No -Classification - Thickness Full Thickness without Exposed Support Structure -Exudate Amt Small (1-33%) -Exudate Type Serosanguineous -Wound Margin Distinct, Outline Attached -Granulation Amt Large (67-100%) -Granulation Quality Red -Slough/Fibrin Yes -Necrosis Amt Small (1-33%) -Necrotic Tissue Type Adherent Slough -Structure Exposed Fascia Fat Layer Exposed -Texture (Francia-wound Skin Appearance) Assessed Scarring -Moisture (Francia-wound Skin Appearance No Abnormality ) Assessed -Color (Francia-wound Skin Appearance) Assessed Erythema -Temperature (Francia-wound Skin No Abnormality Appearance) (Pt Warm) -Tenderness on Palpation (Francia-wound No Skin Appearance) -Ulcer Cleansing Rinsed/ Irrigated with Saline -Foul Odor after Cleansing No -Anesthetic Used 5% Lidocaine Gel [Edema Assessment] -Lower Limb Edema Present Yes -Right Calf (cm) 26.2 -Right Ankle (cm) 24.7 WC - Nurse 2 - General Ulcer CM Notes Start: 12/22/17 11:28 Freq: Status: Active Protocol: Activity Type Activity Date Activity User E-Sign Co-Sign Detail Recorded Client Recorded Date Recorded By Document 01/19/18 12:33 CS [id number] 01/19/18 12:38 CS 01/19/18 12:33 Wound Center Nurse 2 [Procedure/Treatment] #12 R Post LE -Time 12:33 -Correct Patient Yes -Correct Side, Site, Position Yes -Correct Procedure Yes -Procedure Performed Yes -Type of Procedure Debridement -Clinical Debridement Subcutaneous -Post Debridement Size (cm) - Length 2.5 -Post Debridement Size (cm) - Width 1.0 -Post Debridement Size (cm) - Depth 0.2 -Total Square Cm 2.50 -Wound/Ulcer Outcome Not Healed -Ulcer Cleansing Rinsed/ Irrigated with Saline -Foul Odor after Cleansing No -Bioengineered Tissue Yes -Type of bioengineered Tissue EPIFIX -Expiration Date 10/21/22 -Product Lot Number [id number] -Percent Used 75 -Saline Lot Number [id number] -Bleeding Controlled with NA -Treatment Response Procedure Tolerated Well #11- RT HEEL -Time 12:33 -Correct Patient Yes -Correct Side, Site, Position Yes -Correct Procedure Yes -Procedure Performed Yes -Type of Procedure Debridement -Clinical Debridement Subcutaneous -Post Debridement Size (cm) - Length 0.8 -Post Debridement Size (cm) - Width 1.0 -Post Debridement Size (cm) - Depth 0.1 -Total Square Cm 0.80 -Wound/Ulcer Outcome Not Healed -Ulcer Cleansing Rinsed/ Irrigated with Saline -Foul Odor after Cleansing No -Bioengineered Tissue No -Type of bioengineered Tissue EPIFIX -Expiration Date 10/21/22 -Product Lot Number [id number] -Percent Used 25 -Saline Lot Number [id number] -Bleeding Controlled with NA -Treatment Response Procedure Tolerated Well [See Physician Procedure note for Specifics] Musculoskeletal: No Tenderness to Palpation of Joints or Extremities, Muscle Wasting Neurological: - - Patient is an incomplete quadriplegic with very slight sensation in some areas throughout the lower extremity Psych/Mental Status: Normal Affect, Appropriate Debridement Note Post-Debridement Measurements/Treatment WC - Nurse 2 - General Ulcer CM Notes Start: 12/22/17 11:28 Freq: Status: Active Protocol: Activity Type Activity Date Activity User E-Sign Co-Sign Detail Recorded Client Recorded Date Recorded By Document 12/22/17 12:14 [id number] 12/22/17 12:18 CS Document 12/29/17 12:11 CS [id number] 12/29/17 12:15 CS Document 01/05/18 11:48 TM [id number] 01/05/18 11:52 TM Document 01/12/18 11:48 CS [id number] 01/12/18 11:51 CS Document 01/19/18 12:33 CS [id number] 01/19/18 12:38 CS 12/22/17 12/29/17 01/05/18 12:14 12:11 11:48 Wound Center Nurse 2 #12 R Post LE -Time 11:45 12:12 11:48 -Correct Patient Yes Yes Yes -Correct Side, Site, Position Yes Yes Yes -Correct Procedure Yes Yes Yes -Procedure Performed Yes Yes Yes -Type of Procedure Debridement Debridement Debridement -Clinical Debridement Subcutaneous Subcutaneous Subcutaneous -Post Debridement Size (cm) - Length 2.6 2.8 2.9 -Post Debridement Size (cm) - Width 1.1 1.0 1.2 -Post Debridement Size (cm) - Depth 0.3 0.3 0.3 -Total Square Cm 2.86 2.80 3.48 -Wound/Ulcer Outcome Not Healed Not Healed Not Healed -Ulcer Cleansing Not Cleansed Rinsed/ Rinsed/ Irrigated with Irrigated with Saline Saline -Foul Odor after Cleansing No No No -Bioengineered Tissue Yes Yes Yes -Type of bioengineered Tissue EPIFIX EPIFIX EPIFIX -Expiration Date 09/20/22 09/20/22 10/21/22 -Product Lot Number [id number] -Percent Used 75 75 50 -Saline Lot Number [id number] -Topical Lidocaine (%) 5 -Bleeding Controlled with Pressure Pressure Pressure -Treatment Response Procedure Procedure Procedure Tolerated Well Tolerated Well Tolerated Well #11- RT HEEL -Time 11:45 12:13 11:50 -Correct Patient Yes Yes Yes -Correct Side, Site, Position Yes Yes Yes -Correct Procedure Yes Yes Yes -Procedure Performed Yes Yes Yes -Type of Procedure Debridement Debridement Debridement -Clinical Debridement Subcutaneous Subcutaneous Subcutaneous -Post Debridement Size (cm) - Length 1.8 1.5 1.6 -Post Debridement Size (cm) - Width 1.8 0.8 1.0 -Post Debridement Size (cm) - Depth 0.1 0.1 0.1 -Total Square Cm 3.24 1.20 1.60 -Wound/Ulcer Outcome Not Healed Not Healed Not Healed -Ulcer Cleansing Not Cleansed Rinsed/ Rinsed/ Irrigated with Irrigated with Saline Saline -Foul Odor after Cleansing No No No -Bioengineered Tissue Yes No Yes -Type of bioengineered Tissue EPIFIX EPIFIX EPIFIX -Expiration Date 09/20/22 09/20/22 10/21/22 -Product Lot Number [id number] -Percent Used 25 25 50 -Saline Lot Number [id number] -Topical Lidocaine (%) 5 -Bleeding Controlled with Pressure Pressure Pressure -Treatment Response Procedure Procedure Procedure Tolerated Well Tolerated Well Tolerated Well Pain Scale: 0-10 Numeric Is Patient Pain Free? Yes Yes Yes 01/12/18 01/19/18 11:48 12:33 Wound Center Nurse 2 #12 R Post LE -Time 11:20 12:33 -Correct Patient Yes Yes -Correct Side, Site, Position Yes Yes -Correct Procedure Yes Yes -Procedure Performed Yes Yes -Type of Procedure Debridement Debridement -Clinical Debridement Subcutaneous Subcutaneous -Post Debridement Size (cm) - Length 2.2 2.5 -Post Debridement Size (cm) - Width 1.1 1.0 -Post Debridement Size (cm) - Depth 0.3 0.2 -Total Square Cm 2.42 2.50 -Wound/Ulcer Outcome Not Healed Not Healed -Ulcer Cleansing Rinsed/ Rinsed/ Irrigated with Irrigated with Saline Saline -Foul Odor after Cleansing No No -Bioengineered Tissue Yes Yes -Type of bioengineered Tissue EPIFIX EPIFIX -Expiration Date 10/21/22 10/21/22 -Product Lot Number [id number] -Percent Used 75 75 -Saline Lot Number [id number] -Topical Lidocaine (%) -Bleeding Controlled with NA NA -Treatment Response Procedure Procedure Tolerated Well Tolerated Well #11- RT HEEL -Time 11:20 12:33 -Correct Patient Yes Yes -Correct Side, Site, Position Yes Yes -Correct Procedure Yes Yes -Procedure Performed Yes Yes -Type of Procedure Debridement Debridement -Clinical Debridement Subcutaneous Subcutaneous -Post Debridement Size (cm) - Length 0.7 0.8 -Post Debridement Size (cm) - Width 1.1 1.0 -Post Debridement Size (cm) - Depth 0.1 0.1 -Total Square Cm 0.77 0.80 -Wound/Ulcer Outcome Not Healed Not Healed -Ulcer Cleansing Rinsed/ Rinsed/ Irrigated with Irrigated with Saline Saline -Foul Odor after Cleansing No No -Bioengineered Tissue Yes No -Type of bioengineered Tissue EPIFIX EPIFIX -Expiration Date 10/21/22 10/21/22 -Product Lot Number [id number] -Percent Used 25 25 -Saline Lot Number [id number] -Topical Lidocaine (%) -Bleeding Controlled with Pressure NA -Treatment Response Procedure Procedure Tolerated Well Tolerated Well Pain Scale: 0-10 Numeric Is Patient Pain Free? Yes Wound debrided: Right posterior heel Laterality: Right Type of Debridement: Excisional debridement Anesthesia Used: 4% Lidocaine Solution Depth: in the subcutaneous layer Percentage of wound debrided: 100 Instrument Used: #15 blade Tissue Removed: Adherent slough, fibrin, hyperkeratotic tissue Severity: Fat Layer Exposed Amount of bleeding with debridement: Mild Bleeding Controlled with: Pressure Patient tolerated procedure well - Additional Wound Wound debrided: Right posterior calf Laterality: Right Type of Debridement: Excisional debridement Anesthesia Used: 4% Lidocaine Solution Depth: in the subcutaneous layer Percentage of wound debrided: 100 Instrument Used: 3mm curette Tissue Removed: Adherent slough, fibrin, hyperkeratotic tissue Severity: Fat Layer Exposed Amount of bleeding with debridement: Mild Bleeding Controlled with: Pressure Patient tolerated procedure: Patient tolerated procedure well Assessment/Plan Assessment: Ulcer to posterior right heel. Plan: Patient was again examined and evaluated in detail today. The aforementioned ulcers were both subcutaneously debrided as noted in the clinical panel again this week. The ulcers were then cleansed carefully cleansed. The right posterior heel and calf ulcers were then dressed with epifix number 9 to the bases, followed by saline, wound veil, steristrips and an offloading dry sterile dressing. If the dressings need reinforced or the top dressing needs changed, the dressing is not to be taken down past the layer of wound veil and steristrips. He was instructed to keep these areas offloaded as much as possible in order to help heal the ulcer sites. He discussed purchasing purple waffle foam offloading pads to cut out areas to better offload his ulcer sites. He is to continue to use his padded offloading boots with heel cut outs. We will continue to think of ways to promote offloading to the ulcer sites. He was instructed to continue with a diet high in protein to help optimize ulcer healing. He was educated on all signs and symptoms of local and systemic infection and was instructed to go to the ER immediately should he notice any. All questions were answered to the patient's satisfaction. Patient will follow-up in clinic in 1 week for further treatment and evaluation, or sooner if needed.
== END 2018-01-20 23:59 ==
LOC: WC 11:00
PROVIDERS: Visit Provider Podiatrist
DX: E11.622 Type 2 diabetes mellitus with other skin ulcer (principal); E11.42 Type 2 diabetes mellitus with diabetic polyneuropathy; E11.621 Type 2 diabetes mellitus with foot ulcer; G82.50 Quadriplegia, unspecified; L97.412 Non-pressure chronic ulcer of right heel and midfoot with fat layer exposed; L97.212 Non-pressure chronic ulcer of right calf with fat layer exposed
CPT/HCPCS: 15271; 15275; Q4131; A4216

== ENCOUNTER → 2018-01-26 12:34 | Outpatient (CLI) | payer MEDICARE, OTHER, SELFPAY | PROVIDERS: Visit Provider Surgery | DX: E11.622 Type 2 diabetes mellitus with other skin ulcer (principal); E11.42 Type 2 diabetes mellitus with diabetic polyneuropathy; E11.621 Type 2 diabetes mellitus with foot ulcer; G82.50 Quadriplegia, unspecified; L97.412 Non-pressure chronic ulcer of right heel and midfoot with fat layer exposed; L97.212 Non-pressure chronic ulcer of right calf with fat layer exposed; Z45.2 Encounter for adjustment and management of vascular access device | CPT/HCPCS: 15271; 15275; 96523; Q4131 ==

== ENCOUNTER 2018-02-16 11:00 | Outpatient (RCR) | payer MEDICARE, OTHER, SELFPAY ==
[2018-01-21 00:49] VITALS: BP 99/66; PULSE 74; RESP 18; TEMP 36.3; BMI 26.6
[2018-01-26 11:42] VITALS: BP 119/50; PULSE 72; RESP 16; TEMP 36.8; BMI 26.6
--- NOTE | 2018-01-26 13:04 | PCM.WC.PN ---
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 Status: Acute Current Visit: No Code(s): E11.621 - Type 2 diabetes mellitus with foot ulcer; L97.416 - Non-pressure chronic ulcer of right heel and midfoot with bone involvement without evidence of necrosis (3) Delayed wound healing Status: Acute Current Visit: No Code(s): T14.8XXD - Other injury of unspecified body region, subsequent encounter (4) Type 2 diabetes mellitus with diabetic polyneuropathy Status: Acute Current Visit: No Code(s): E11.42 - Type 2 diabetes mellitus with diabetic polyneuropathy (5) Chronic incomplete quadriplegia Status: Acute Current Visit: No Code(s): G82.50 - Quadriplegia, unspecified (6) Malnutrition Status: Acute Current Visit: No Code(s): E46 - Unspecified protein-calorie malnutrition Type of Wound Date of Service: 01/26/18 Chief Complaint: Ulcer on right heel History of Wound: This is a 67-year-old white male who presents to the wound care center today for evaluation of a right heel ulcer. He has a past medical history as described above. The patient states that on the night of 06/06/2017, his heel protectors came off all night in bed and shortly after he noted an ulceration on his right heel and a purplish discoloration on his left heel. He states that there has been yellow drainage coming from his right heel and that yesterday he started using Granulex and Aquacel silver on the right heel. He denies any pain or foul-smelling discharge, however he does state that he has decreased sensation to his lower extremities due to his history of a spinal cord injury in high school. He currently has a suprapubic catheter as well due to his history of recurrent UTIs and obstructive uropathy. He also notes that his low air loss hospital bed is needing to be repaired so he is unable to use this at this time. The patient does state that he has a history of ulcerations on his right heel in the past where he had to be seen at a wound care center and ended up needing to have skin substitutes applied. He does note that he lives home alone and that he receives home health throughout the week. Patient was then referred to Dr. Gan at his office, who subsequently admitted the patient on Jul 04, for IV antibiotics and evaluation by ID. Infectious disease planned to d/c patient home on doxy 100mg bid, amoxicillin 500mg tid, and flagyl 500mg tid for planned 6 week course. He has since discharge been receiving daily dressing changes consisting of aquacel ag and a dry sterile dressing as well as wearing his PRAFO boots at all times. He otherwise denies any signs of systemic infection and denies any fever, chills, nausea, vomiting, chest pain or pressure, syncope or presyncopal episodes. Progress of Wound: Patient returns to wound healing center this week for continued treatment of right heel ulcer and right posterior calf ulcer. Patient continues to wear offloading padded boots with heel cut outs over the last week. He has kept his dressing intact since last visit. He says that with his condition, he does not know of any way to completely keep pressure off of the areas, but that he is doing his best. He bought some padding and is awaiting the delivery. He denies any purulence to the area. Ulcer sites remain stable. He denies any feeling of nausea, vomiting, fever, or chills currently. - Physical Exam Vital Signs Temp Pulse Resp BP 98.2 F 72 16 119/50 L 01/26/18 11:42 01/26/18 11:42 01/26/18 11:42 01/26/18 11:42 General: Alert, Oriented x3, Cooperative, No apparent distress Extremities: Capillary Refill Less than 3 Seconds, No Calf Tenderness - Negative Sarah Beth and Pretty sign, Diminished Peripheral Pulses Skin: Ulcer/ Wound - Ulcer to right posterior heel with fat layer exposed. Measurements noted below. Ulcer again remained stable compared with last week. The base continues to be a mixture of granular tissue, adherent slough, fibrin, as well as some surrounding hyperkeratotic tissue. Areas close to the calcaneus. There continues to be no malodor, no purulence, no extending cellulitis, no increase in warmth appreciated to this area today. The ulcer to the right posterior calf is also noted with measurements below. This area has shown a slight improvement this week again but remains fairly stable. The base continues to be a mixture of granular tissue, adherent slough, fibrin, as well as some slight hyperkeratotic tissue. There continues to be no probing to bone, no tracking, no undermining, no purulence, no malodor, no extending cellulitis, and no increase in warmth appreciated at this time. Wound Measurements and Assessment WC - Nurse 1 - General Ulcer Measurement Start: 01/26/18 11:37 Freq: Status: Active Protocol: Activity Type Activity Date Activity User E-Sign Co-Sign Detail Recorded Client Recorded Date Recorded By Document 01/26/18 11:42 [id number] 01/26/18 11:47 01/26/18 11:42 Wound Center Nurse 1 [Ulcer Assessment] #12 R Post LE -Combined with other wound No -Current Size (cm) - Length 3.0 -Current Size (cm) - Width 0.9 -Current Size (cm) - Depth 0.2 -Total Square Cm 2.70 -Date of Last Picture (Recall this 01/26/18 field) -Photo Taken Yes -Epithelialization Small 1-33% -Tunneling No -Undermining/Tunneling No -Circular Undermining No -Classification - Thickness Full Thickness without Exposed Support Structure -Exudate Amt Small (1-33%) -Exudate Type Serosanguineous -Wound Margin Distinct, Outline Attached -Granulation Amt Medium (34-66%) -Granulation Quality [place] -Slough/Fibrin Yes -Necrosis Amt Medium (34-66%) -Necrotic Tissue Type Adherent Slough -Structure Exposed Fascia Fat Layer Exposed -Texture (Francia-wound Skin Appearance) Assessed Scarring -Moisture (Francia-wound Skin Appearance No Abnormality ) Assessed -Color (Francia-wound Skin Appearance) Assessed Erythema -Temperature (Francia-wound Skin No Abnormality Appearance) (Pt Warm) -Tenderness on Palpation (Francia-wound No Skin Appearance) -Ulcer Cleansing Rinsed/ Irrigated with Saline -Foul Odor after Cleansing No -Anesthetic Used 4% Lidocaine Solution #11- RT HEEL -Combined with other wound No -Current Size (cm) - Length 0.4 -Current Size (cm) - Width 0.6 -Current Size (cm) - Depth 0.2 -Total Square Cm 0.24 -Date of Last Picture (Recall this 01/26/18 field) -Photo Taken Yes -Epithelialization Small 1-33% -Tunneling No -Undermining/Tunneling No -Circular Undermining No -Classification - Thickness Full Thickness without Exposed Support Structure -Exudate Amt Small (1-33%) -Exudate Type Serosanguineous -Wound Margin Distinct, Outline Attached -Granulation Amt Medium (34-66%) -Granulation Quality [place] -Slough/Fibrin Yes -Necrosis Amt Medium (34-66%) -Necrotic Tissue Type Adherent Slough -Structure Exposed Fascia Fat Layer Exposed -Texture (Francia-wound Skin Appearance) Assessed Callus Scarring -Moisture (Francia-wound Skin Appearance No Abnormality ) Assessed -Color (Francia-wound Skin Appearance) Assessed Erythema -Temperature (Francia-wound Skin No Abnormality Appearance) (Pt Warm) -Tenderness on Palpation (Francia-wound No Skin Appearance) -Ulcer Cleansing Rinsed/ Irrigated with Saline -Foul Odor after Cleansing No -Anesthetic Used 4% Lidocaine Solution [Edema Assessment] -Lower Limb Edema Present Yes -Right Calf (cm) 29 -Right Ankle (cm) 22.4 WC - Nurse 2 - General Ulcer CM Notes Start: 01/26/18 11:37 Freq: Status: Active Protocol: Activity Type Activity Date Activity User E-Sign Co-Sign Detail Recorded Client Recorded Date Recorded By Document 01/26/18 11:55 [id number] 01/26/18 12:11 01/26/18 11:55 Wound Center Nurse 2 [Procedure/Treatment] #12 R Post LE -Time 11:55 -Correct Patient Yes -Correct Side, Site, Position Yes -Correct Procedure Yes -Procedure Performed Yes -Type of Procedure Debridement -Clinical Debridement Subcutaneous -Post Debridement Size (cm) - Length 2.8 -Post Debridement Size (cm) - Width 0.9 -Post Debridement Size (cm) - Depth 0.2 -Total Square Cm 2.52 -Wound/Ulcer Outcome Not Healed -Ulcer Cleansing Rinsed/ Irrigated with Saline -Foul Odor after Cleansing No -Bioengineered Tissue No -Type of bioengineered Tissue EPIFIX -Expiration Date 10/21/22 -Product Lot Number [id number] -Percent Used 75 -Saline Lot Number [id number] -Bleeding Controlled with NA -Treatment Response Procedure Tolerated Well #11- RT HEEL -Time 11:56 -Correct Patient Yes -Correct Side, Site, Position Yes -Correct Procedure Yes -Procedure Performed Yes -Type of Procedure Debridement -Clinical Debridement Subcutaneous -Post Debridement Size (cm) - Length 1.1 -Post Debridement Size (cm) - Width 1.0 -Post Debridement Size (cm) - Depth 0.1 -Total Square Cm 1.10 -Wound/Ulcer Outcome Not Healed -Ulcer Cleansing Rinsed/ Irrigated with Saline -Foul Odor after Cleansing No -Bioengineered Tissue No -Type of bioengineered Tissue EPIFIX -Expiration Date 10/21/22 -Product Lot Number [id number] -Percent Used 25 -Saline Lot Number [id number] -Bleeding Controlled with NA -Treatment Response Procedure Tolerated Well [See Physician Procedure note for Specifics] Pain Scale: 0-10 Numeric [Pain] -Is Patient Pain Free? Yes Musculoskeletal: No Tenderness to Palpation of Joints or Extremities, Muscle Wasting Neurological: - Psych/Mental Status: Normal Affect, Appropriate Debridement Note Post-Debridement Measurements/Treatment WC - Nurse 2 - General Ulcer CM Notes Start: 01/26/18 11:37 Freq: Status: Active Protocol: Activity Type Activity Date Activity User E-Sign Co-Sign Detail Recorded Client Recorded Date Recorded By Document 01/26/18 11:55 [id number] 01/26/18 12:11 01/26/18 11:55 Wound Center Nurse 2 #12 R Post LE -Time 11:55 -Correct Patient Yes -Correct Side, Site, Position Yes -Correct Procedure Yes -Procedure Performed Yes -Type of Procedure Debridement -Clinical Debridement Subcutaneous -Post Debridement Size (cm) - Length 2.8 -Post Debridement Size (cm) - Width 0.9 -Post Debridement Size (cm) - Depth 0.2 -Total Square Cm 2.52 -Wound/Ulcer Outcome Not Healed -Ulcer Cleansing Rinsed/ Irrigated with Saline -Foul Odor after Cleansing No -Bioengineered Tissue No -Type of bioengineered Tissue EPIFIX -Expiration Date 10/21/22 -Product Lot Number [id number] -Percent Used 75 -Saline Lot Number [id number] -Bleeding Controlled with NA -Treatment Response Procedure Tolerated Well #11- RT HEEL -Time 11:56 -Correct Patient Yes -Correct Side, Site, Position Yes -Correct Procedure Yes -Procedure Performed Yes -Type of Procedure Debridement -Clinical Debridement Subcutaneous -Post Debridement Size (cm) - Length 1.1 -Post Debridement Size (cm) - Width 1.0 -Post Debridement Size (cm) - Depth 0.1 -Total Square Cm 1.10 -Wound/Ulcer Outcome Not Healed -Ulcer Cleansing Rinsed/ Irrigated with Saline -Foul Odor after Cleansing No -Bioengineered Tissue No -Type of bioengineered Tissue EPIFIX -Expiration Date 10/21/22 -Product Lot Number [id number] -Percent Used 25 -Saline Lot Number [id number] -Bleeding Controlled with NA -Treatment Response Procedure Tolerated Well Pain Scale: 0-10 Numeric Is Patient Pain Free? Yes Wound debrided: Right posterior heel Laterality: Right Type of Debridement: Excisional debridement Anesthesia Used: 4% Lidocaine Solution Depth: in the subcutaneous layer Percentage of wound debrided: 100 Instrument Used: #15 blade, - - Tissue nipper Tissue Removed: Adherent slough, fibrin, hyperkeratotic tissue Severity: Fat Layer Exposed Amount of bleeding with debridement: Mild Bleeding Controlled with: Pressure Patient tolerated procedure well - Additional Wound Wound debrided: Right posterior calf Laterality: Right Type of Debridement: Excisional debridement Anesthesia Used: 4% Lidocaine Solution Depth: in the subcutaneous layer Percentage of wound debrided: 100 Instrument Used: 3mm curette Tissue Removed: Adherent slough, fibrin, hyperkeratotic tissue Severity: Fat Layer Exposed Amount of bleeding with debridement: Mild Bleeding Controlled with: Pressure Patient tolerated procedure: Patient tolerated procedure well Assessment/Plan Assessment: Ulcer to posterior right heel. Plan: Patient was again examined and evaluated in detail today. The aforementioned ulcers were both subcutaneously debrided as noted in the clinical panel again this week. The ulcers were then cleansed carefully cleansed, and the right posterior heel and calf ulcers were then dressed with epifix number 10 to the bases, followed by saline, wound veil, steristrips and an offloading dry sterile dressing. If the dressings need reinforced or the top dressing needs changed, the dressing is not to be taken down past the layer of wound veil and steristrips. He was instructed to keep these areas offloaded as much as possible in order to help heal the ulcer sites. He purchased purple waffle foam offloading pads to cut out areas to better offload his ulcer sites, and is awaiting their delivery. He is to continue to use his padded offloading boots with heel cut outs. We will continue to think of ways to promote offloading to the ulcer sites. He was instructed to continue with a diet high in protein to help optimize ulcer healing. He was educated on all signs and symptoms of local and systemic infection and was instructed to go to the ER immediately should he notice any. All questions were answered to the patient's satisfaction. Patient will follow-up in clinic in 1 week for further treatment and evaluation, or sooner if needed.
[2018-02-02 11:20] VITALS: BP 104/60; PULSE 75; RESP 16; TEMP 36.1; BMI 26.6
--- NOTE | 2018-02-02 13:22 | PCM.WC.PN ---
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 Status: Acute Current Visit: No Code(s): E11.621 - Type 2 diabetes mellitus with foot ulcer; L97.416 - Non-pressure chronic ulcer of right heel and midfoot with bone involvement without evidence of necrosis (3) Delayed wound healing Status: Acute Current Visit: No Code(s): T14.8XXD - Other injury of unspecified body region, subsequent encounter (4) Type 2 diabetes mellitus with diabetic polyneuropathy Status: Acute Current Visit: No Code(s): E11.42 - Type 2 diabetes mellitus with diabetic polyneuropathy (5) Chronic incomplete quadriplegia Status: Acute Current Visit: No Code(s): G82.50 - Quadriplegia, unspecified (6) Malnutrition Status: Acute Current Visit: No Code(s): E46 - Unspecified protein-calorie malnutrition Type of Wound Date of Service: 02/02/18 Chief Complaint: Ulcer on right heel History of Wound: This is a 67-year-old white male who presents to the wound care center today for evaluation of a right heel ulcer. He has a past medical history as described above. The patient states that on the night of 06/06/2017, his heel protectors came off all night in bed and shortly after he noted an ulceration on his right heel and a purplish discoloration on his left heel. He states that there has been yellow drainage coming from his right heel and that yesterday he started using Granulex and Aquacel silver on the right heel. He denies any pain or foul-smelling discharge, however he does state that he has decreased sensation to his lower extremities due to his history of a spinal cord injury in high school. He currently has a suprapubic catheter as well due to his history of recurrent UTIs and obstructive uropathy. He also notes that his low air loss hospital bed is needing to be repaired so he is unable to use this at this time. The patient does state that he has a history of ulcerations on his right heel in the past where he had to be seen at a wound care center and ended up needing to have skin substitutes applied. He does note that he lives home alone and that he receives home health throughout the week. Patient was then referred to Dr. Gan at his office, who subsequently admitted the patient on Jul 04, for IV antibiotics and evaluation by ID. Infectious disease planned to d/c patient home on doxy 100mg bid, amoxicillin 500mg tid, and flagyl 500mg tid for planned 6 week course. He has since discharge been receiving daily dressing changes consisting of aquacel ag and a dry sterile dressing as well as wearing his PRAFO boots at all times. He otherwise denies any signs of systemic infection and denies any fever, chills, nausea, vomiting, chest pain or pressure, syncope or presyncopal episodes. Progress of Wound: Patient returns to wound healing center this week for continued treatment of right heel ulcer and right posterior calf ulcer. Patient continues to wear offloading padded boots with heel cut outs over the last week. He has kept his dressing intact since last visit. He says that with his condition, he does not know of any way to completely keep pressure off of the areas, but that he is doing his best. He bought some padding. He denies any purulence to the area. Ulcer sites remain stable. He denies any feeling of nausea, vomiting, fever, or chills currently. - Physical Exam Vital Signs Temp Pulse Resp BP 96.9 F L 75 16 104/60 02/02/18 11:20 02/02/18 11:20 02/02/18 11:20 02/02/18 11:20 General: Alert, Oriented x3, Cooperative, No apparent distress Extremities: Capillary Refill Less than 3 Seconds, No Calf Tenderness - Negative Sarah Beth and Pretty sign, Diminished Peripheral Pulses Skin: Ulcer/ Wound - Ulcer to right posterior heel with fat layer exposed. Measurements are noted below. Very slight improvement noted since last week. The base continues to be a mixture of adherent slough, fibrin, granular tissue as well as some slight surrounding hyperkeratotic tissue. The area remains closed to the calcaneus. There continues to be no malodor, no purulence, no extending cellulitis, no increase in warmth appreciated to this site today. Ulcer to the right posterior calf is also noted with measurements below. Slight improvement is noted at this site as well today. The base continues to be a mixture of granular tissue, adherent slough, fibrin, as well as some slight hyperkeratotic tissue around the ulcer periphery. There continues to be no probing to bone, no tracking, no undermining, no purulence, no malodor, no extending cellulitis, and no increase in warmth at this time. Wound Measurements and Assessment WC - Nurse 1 - General Ulcer Measurement Start: 01/26/18 11:37 Freq: Status: Active Protocol: Activity Type Activity Date Activity User E-Sign Co-Sign Detail Recorded Client Recorded Date Recorded By Document 02/02/18 11:20 [facility] [id number] 02/02/18 11:24 [facility] 02/02/18 11:20 Wound Center Nurse 1 [Ulcer Assessment] #12 R Post LE -Combined with other wound No -Current Size (cm) - Length 2.3 -Current Size (cm) - Width 0.6 -Current Size (cm) - Depth 0.2 -Total Square Cm 1.38 -Photo Taken No -Epithelialization Small 1-33% -Tunneling No -Undermining/Tunneling No -Circular Undermining No -Classification - Thickness Full Thickness without Exposed Support Structure -Exudate Amt Small (1-33%) -Exudate Type Serosanguineous -Wound Margin Distinct, Outline Attached -Granulation Amt Medium (34-66%) -Granulation Quality Red -Slough/Fibrin Yes -Necrosis Amt Medium (34-66%) -Necrotic Tissue Type Adherent Slough -Structure Exposed Fascia Fat Layer Exposed -Texture (Francia-wound Skin Appearance) No Abnormality Assessed -Moisture (Francia-wound Skin Appearance Assessed ) Dry/Scaly -Color (Francia-wound Skin Appearance) Assessed Erythema -Temperature (Francia-wound Skin No Abnormality Appearance) (Pt Warm) -Tenderness on Palpation (Francia-wound No Skin Appearance) -Ulcer Cleansing Rinsed/ Irrigated with Saline -Foul Odor after Cleansing No -Anesthetic Used 4% Lidocaine Solution #11- RT HEEL -Combined with other wound No -Current Size (cm) - Length 0.3 -Current Size (cm) - Width 0.4 -Current Size (cm) - Depth 0.2 -Total Square Cm 0.12 -Photo Taken No -Epithelialization Small 1-33% -Tunneling No -Undermining/Tunneling No -Circular Undermining No -Classification - Thickness Full Thickness without Exposed Support Structure -Exudate Amt Small (1-33%) -Exudate Type Serosanguineous -Wound Margin Distinct, Outline Attached -Granulation Amt Large (67-100%) -Granulation Quality Red -Slough/Fibrin Yes -Necrosis Amt Small (1-33%) -Necrotic Tissue Type Adherent Slough -Structure Exposed Fascia Fat Layer Exposed -Texture (Francia-wound Skin Appearance) Callus Scarring -Moisture (Francia-wound Skin Appearance No Abnormality ) Assessed Dry/Scaly -Color (Francia-wound Skin Appearance) Assessed Erythema -Temperature (Francia-wound Skin No Abnormality Appearance) (Pt Warm) -Tenderness on Palpation (Francia-wound No Skin Appearance) -Ulcer Cleansing Rinsed/ Irrigated with Saline -Foul Odor after Cleansing No -Anesthetic Used 4% Lidocaine Solution [Edema Assessment] -Lower Limb Edema Present No WC - Nurse 2 - General Ulcer CM Notes Start: 01/26/18 11:37 Freq: Status: Active Protocol: Activity Type Activity Date Activity User E-Sign Co-Sign Detail Recorded Client Recorded Date Recorded By Document 02/02/18 11:37 [id number] 02/02/18 11:43 02/02/18 11:37 Wound Center Nurse 2 [Procedure/Treatment] #12 R Post LE -Time 11:38 -Correct Patient Yes -Correct Side, Site, Position Yes -Correct Procedure Yes -Procedure Performed Yes -Type of Procedure Debridement -Clinical Debridement Subcutaneous -Post Debridement Size (cm) - Length 2.7 -Post Debridement Size (cm) - Width 0.7 -Post Debridement Size (cm) - Depth 0.2 -Total Square Cm 1.89 -Wound/Ulcer Outcome Not Healed -Ulcer Cleansing Not Cleansed -Foul Odor after Cleansing No -Bioengineered Tissue No -Bleeding Controlled with Pressure -Treatment Response Procedure Tolerated Well #11- RT HEEL -Time 11:38 -Correct Patient Yes -Correct Side, Site, Position Yes -Correct Procedure Yes -Procedure Performed Yes -Type of Procedure Debridement -Clinical Debridement Subcutaneous -Post Debridement Size (cm) - Length 0.8 -Post Debridement Size (cm) - Width 1.1 -Post Debridement Size (cm) - Depth 0.1 -Total Square Cm 0.88 -Wound/Ulcer Outcome Not Healed -Ulcer Cleansing Not Cleansed -Foul Odor after Cleansing No -Bioengineered Tissue No -Bleeding Controlled with Pressure -Treatment Response Procedure Tolerated Well [See Physician Procedure note for Specifics] Pain Scale: 0-10 Numeric [Pain] -Is Patient Pain Free? Yes Musculoskeletal: No Tenderness to Palpation of Joints or Extremities, Muscle Wasting Neurological: - - Patient is an incomplete quadriplegic with very slight sensation in some areas throughout the lower extremity Psych/Mental Status: Normal Affect, Appropriate Debridement Note Post-Debridement Measurements/Treatment WC - Nurse 2 - General Ulcer CM Notes Start: 01/26/18 11:37 Freq: Status: Active Protocol: Activity Type Activity Date Activity User E-Sign Co-Sign Detail Recorded Client Recorded Date Recorded By Document 01/26/18 11:55 JS [id number] 01/26/18 12:11 JS Document 02/02/18 11:37 CS [id number] 02/02/18 11:43 CS 01/26/18 02/02/18 11:55 11:37 Wound Center Nurse 2 #12 R Post LE -Time 11:55 11:38 -Correct Patient Yes Yes -Correct Side, Site, Position Yes Yes -Correct Procedure Yes Yes -Procedure Performed Yes Yes -Type of Procedure Debridement Debridement -Clinical Debridement Subcutaneous Subcutaneous -Post Debridement Size (cm) - Length 2.8 2.7 -Post Debridement Size (cm) - Width 0.9 0.7 -Post Debridement Size (cm) - Depth 0.2 0.2 -Total Square Cm 2.52 1.89 -Wound/Ulcer Outcome Not Healed Not Healed -Ulcer Cleansing Rinsed/ Not Cleansed Irrigated with Saline -Foul Odor after Cleansing No No -Bioengineered Tissue No No -Type of bioengineered Tissue EPIFIX -Expiration Date 10/21/22 -Product Lot Number [id number] -Percent Used 75 -Saline Lot Number [id number] -Bleeding Controlled with NA Pressure -Treatment Response Procedure Procedure Tolerated Well Tolerated Well #11- RT HEEL -Time 11:56 11:38 -Correct Patient Yes Yes -Correct Side, Site, Position Yes Yes -Correct Procedure Yes Yes -Procedure Performed Yes Yes -Type of Procedure Debridement Debridement -Clinical Debridement Subcutaneous Subcutaneous -Post Debridement Size (cm) - Length 1.1 0.8 -Post Debridement Size (cm) - Width 1.0 1.1 -Post Debridement Size (cm) - Depth 0.1 0.1 -Total Square Cm 1.10 0.88 -Wound/Ulcer Outcome Not Healed Not Healed -Ulcer Cleansing Rinsed/ Not Cleansed Irrigated with Saline -Foul Odor after Cleansing No No -Bioengineered Tissue No No -Type of bioengineered Tissue EPIFIX -Expiration Date 10/21/22 -Product Lot Number [id number] -Percent Used 25 -Saline Lot Number [id number] -Bleeding Controlled with NA Pressure -Treatment Response Procedure Procedure Tolerated Well Tolerated Well Pain Scale: 0-10 Numeric Is Patient Pain Free? Yes Yes Wound debrided: Right posterior heel Laterality: Right Type of Debridement: Excisional debridement Anesthesia Used: 4% Lidocaine Solution Depth: in the subcutaneous layer Percentage of wound debrided: 100 Instrument Used: #15 blade Tissue Removed: Adherent slough, fibrin, hyperkeratotic tissue Severity: Fat Layer Exposed Amount of bleeding with debridement: Mild Bleeding Controlled with: Pressure Patient tolerated procedure well - Additional Wound Wound debrided: Right posterior calf Laterality: Right Type of Debridement: Excisional debridement Anesthesia Used: 4% Lidocaine Solution Depth: in the subcutaneous layer Percentage of wound debrided: 100 Instrument Used: 3mm curette Tissue Removed: Adherent slough, fibrin, hyperkeratotic tissue Severity: Fat Layer Exposed Amount of bleeding with debridement: Mild Bleeding Controlled with: Pressure Patient tolerated procedure: Patient tolerated procedure well Assessment/Plan Assessment: Ulcer to posterior right heel. Plan: Patient was again examined and evaluated in detail today. The aforementioned ulcers were both subcutaneously debrided as noted in the clinical panel. The ulcers were then carefully cleansed, and the right posterior heel and calf ulcers were then dressed with chris to the ulcer bases, followed by an offloading dry sterile dressing. The dressing is to be changed in this manner daily. Dressing supplies ordered for the patient. He was instructed to keep these areas offloaded as much as possible in order to help heal the ulcer sites. He purchased purple waffle foam offloading pads to cut out areas to better offload his ulcer sites. He is to continue to use his padded offloading boots with heel cut outs. He was instructed to continue with a diet high in protein to help optimize ulcer healing. He was educated on all signs and symptoms of local and systemic infection and was instructed to go to the ER immediately should he notice any. All questions were answered to the patient's satisfaction. Patient will follow-up in clinic in 1 week for further treatment and evaluation, or sooner if needed.
--- NOTE | 2018-02-02 13:27 | PN.PCM_ITS ---
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 Status: Acute Current Visit: No Code(s): E11.621 - Type 2 diabetes mellitus with foot ulcer; L97.416 - Non-pressure chronic ulcer of right heel and midfoot with bone involvement without evidence of necrosis (3) Delayed wound healing Status: Acute Current Visit: No Code(s): T14.8XXD - Other injury of unspecified body region, subsequent encounter (4) Type 2 diabetes mellitus with diabetic polyneuropathy Status: Acute Current Visit: No Code(s): E11.42 - Type 2 diabetes mellitus with diabetic polyneuropathy (5) Chronic incomplete quadriplegia Status: Acute Current Visit: No Code(s): G82.50 - Quadriplegia, unspecified (6) Malnutrition Status: Acute Current Visit: No Code(s): E46 - Unspecified protein-calorie malnutrition Type of Wound Date of Service: 02/02/18 Chief Complaint: Ulcer on right heel History of Wound: This is a 67-year-old white male who presents to the wound care center today for evaluation of a right heel ulcer. He has a past medical history as described above. The patient states that on the night of 06/06/2017, his heel protectors came off all night in bed and shortly after he noted an ulceration on his right heel and a purplish discoloration on his left heel. He states that there has been yellow drainage coming from his right heel and that yesterday he started using Granulex and Aquacel silver on the right heel. He denies any pain or foul-smelling discharge, however he does state that he has decreased sensation to his lower extremities due to his history of a spinal cord injury in high school. He currently has a suprapubic catheter as well due to his history of recurrent UTIs and obstructive uropathy. He also notes that his low air loss hospital bed is needing to be repaired so he is unable to use this at this time. The patient does state that he has a history of ulcerations on his right heel in the past where he had to be seen at a wound care center and ended up needing to have skin substitutes applied. He does note that he lives home alone and that he receives home health throughout the week. Patient was then referred to Dr. Gan at his office, who subsequently admitted the patient on Jul 04, for IV antibiotics and evaluation by ID. Infectious disease planned to d/c patient home on doxy 100mg bid, amoxicillin 500mg tid, and flagyl 500mg tid for planned 6 week course. He has since discharge been receiving daily dressing changes consisting of aquacel ag and a dry sterile dressing as well as wearing his PRAFO boots at all times. He otherwise denies any signs of systemic infection and denies any fever, chills, nausea, vomiting, chest pain or pressure, syncope or presyncopal episodes. Progress of Wound: Patient returns to wound healing center this week for continued treatment of right heel ulcer and right posterior calf ulcer. Patient continues to wear offloading padded boots with heel cut outs over the last week. He has kept his dressing intact since last visit. He says that with his condition, he does not know of any way to completely keep pressure off of the areas, but that he is doing his best. He bought some padding. He denies any purulence to the area. Ulcer sites remain stable. He denies any feeling of nausea, vomiting, fever, or chills currently. - Physical Exam Vital Signs Temp Pulse Resp BP 96.9 F L 75 16 104/60 02/02/18 11:20 02/02/18 11:20 02/02/18 11:20 02/02/18 11:20 General: Alert, Oriented x3, Cooperative, No apparent distress Extremities: Capillary Refill Less than 3 Seconds, No Calf Tenderness - Negative Sarah Beth and Pretty sign, Diminished Peripheral Pulses Skin: Ulcer/ Wound - Ulcer to right posterior heel with fat layer exposed. Measurements are noted below. Very slight improvement noted since last week. The base continues to be a mixture of adherent slough, fibrin, granular tissue as well as some slight surrounding hyperkeratotic tissue. The area remains closed to the calcaneus. There continues to be no malodor, no purulence, no extending cellulitis, no increase in warmth appreciated to this site today. Ulcer to the right posterior calf is also noted with measurements below. Slight improvement is noted at this site as well today. The base continues to be a mixture of granular tissue, adherent slough, fibrin, as well as some slight hyperkeratotic tissue around the ulcer periphery. There continues to be no probing to bone, no tracking, no undermining, no purulence, no malodor, no extending cellulitis, and no increase in warmth at this time. Wound Measurements and Assessment WC - Nurse 1 - General Ulcer Measurement Start: 01/26/18 11:37 Freq: Status: Active Protocol: Activity Type Activity Date Activity User E-Sign Co-Sign Detail Recorded Client Recorded Date Recorded By Document 02/02/18 11:20 [facility] [id number] 02/02/18 11:24 [facility] 02/02/18 11:20 Wound Center Nurse 1 [Ulcer Assessment] #12 R Post LE -Combined with other wound No -Current Size (cm) - Length 2.3 -Current Size (cm) - Width 0.6 -Current Size (cm) - Depth 0.2 -Total Square Cm 1.38 -Photo Taken No -Epithelialization Small 1-33% -Tunneling No -Undermining/Tunneling No -Circular Undermining No -Classification - Thickness Full Thickness without Exposed Support Structure -Exudate Amt Small (1-33%) -Exudate Type Serosanguineous -Wound Margin Distinct, Outline Attached -Granulation Amt Medium (34-66%) -Granulation Quality Red -Slough/Fibrin Yes -Necrosis Amt Medium (34-66%) -Necrotic Tissue Type Adherent Slough -Structure Exposed Fascia Fat Layer Exposed -Texture (Francia-wound Skin Appearance) No Abnormality Assessed -Moisture (Francia-wound Skin Appearance Assessed ) Dry/Scaly -Color (Francia-wound Skin Appearance) Assessed Erythema -Temperature (Francia-wound Skin No Abnormality Appearance) (Pt Warm) -Tenderness on Palpation (Francia-wound No Skin Appearance) -Ulcer Cleansing Rinsed/ Irrigated with Saline -Foul Odor after Cleansing No -Anesthetic Used 4% Lidocaine Solution #11- RT HEEL -Combined with other wound No -Current Size (cm) - Length 0.3 -Current Size (cm) - Width 0.4 -Current Size (cm) - Depth 0.2 -Total Square Cm 0.12 -Photo Taken No -Epithelialization Small 1-33% -Tunneling No -Undermining/Tunneling No -Circular Undermining No -Classification - Thickness Full Thickness without Exposed Support Structure -Exudate Amt Small (1-33%) -Exudate Type Serosanguineous -Wound Margin Distinct, Outline Attached -Granulation Amt Large (67-100%) -Granulation Quality Red -Slough/Fibrin Yes -Necrosis Amt Small (1-33%) -Necrotic Tissue Type Adherent Slough -Structure Exposed Fascia Fat Layer Exposed -Texture (Francia-wound Skin Appearance) Callus Scarring -Moisture (Francia-wound Skin Appearance No Abnormality ) Assessed Dry/Scaly -Color (Francia-wound Skin Appearance) Assessed Erythema -Temperature (Francia-wound Skin No Abnormality Appearance) (Pt Warm) -Tenderness on Palpation (Francia-wound No Skin Appearance) -Ulcer Cleansing Rinsed/ Irrigated with Saline -Foul Odor after Cleansing No -Anesthetic Used 4% Lidocaine Solution [Edema Assessment] -Lower Limb Edema Present No WC - Nurse 2 - General Ulcer CM Notes Start: 01/26/18 11:37 Freq: Status: Active Protocol: Activity Type Activity Date Activity User E-Sign Co-Sign Detail Recorded Client Recorded Date Recorded By Document 02/02/18 11:37 [id number] 02/02/18 11:43 02/02/18 11:37 Wound Center Nurse 2 [Procedure/Treatment] #12 R Post LE -Time 11:38 -Correct Patient Yes -Correct Side, Site, Position Yes -Correct Procedure Yes -Procedure Performed Yes -Type of Procedure Debridement -Clinical Debridement Subcutaneous -Post Debridement Size (cm) - Length 2.7 -Post Debridement Size (cm) - Width 0.7 -Post Debridement Size (cm) - Depth 0.2 -Total Square Cm 1.89 -Wound/Ulcer Outcome Not Healed -Ulcer Cleansing Not Cleansed -Foul Odor after Cleansing No -Bioengineered Tissue No -Bleeding Controlled with Pressure -Treatment Response Procedure Tolerated Well #11- RT HEEL -Time 11:38 -Correct Patient Yes -Correct Side, Site, Position Yes -Correct Procedure Yes -Procedure Performed Yes -Type of Procedure Debridement -Clinical Debridement Subcutaneous -Post Debridement Size (cm) - Length 0.8 -Post Debridement Size (cm) - Width 1.1 -Post Debridement Size (cm) - Depth 0.1 -Total Square Cm 0.88 -Wound/Ulcer Outcome Not Healed -Ulcer Cleansing Not Cleansed -Foul Odor after Cleansing No -Bioengineered Tissue No -Bleeding Controlled with Pressure -Treatment Response Procedure Tolerated Well [See Physician Procedure note for Specifics] Pain Scale: 0-10 Numeric [Pain] -Is Patient Pain Free? Yes Musculoskeletal: No Tenderness to Palpation of Joints or Extremities, Muscle Wasting Neurological: - - Patient is an incomplete quadriplegic with very slight sensation in some areas throughout the lower extremity Psych/Mental Status: Normal Affect, Appropriate Debridement Note Post-Debridement Measurements/Treatment WC - Nurse 2 - General Ulcer CM Notes Start: 01/26/18 11:37 Freq: Status: Active Protocol: Activity Type Activity Date Activity User E-Sign Co-Sign Detail Recorded Client Recorded Date Recorded By Document 01/26/18 11:55 JS [id number] 01/26/18 12:11 JS Document 02/02/18 11:37 CS [id number] 02/02/18 11:43 CS 01/26/18 02/02/18 11:55 11:37 Wound Center Nurse 2 #12 R Post LE -Time 11:55 11:38 -Correct Patient Yes Yes -Correct Side, Site, Position Yes Yes -Correct Procedure Yes Yes -Procedure Performed Yes Yes -Type of Procedure Debridement Debridement -Clinical Debridement Subcutaneous Subcutaneous -Post Debridement Size (cm) - Length 2.8 2.7 -Post Debridement Size (cm) - Width 0.9 0.7 -Post Debridement Size (cm) - Depth 0.2 0.2 -Total Square Cm 2.52 1.89 -Wound/Ulcer Outcome Not Healed Not Healed -Ulcer Cleansing Rinsed/ Not Cleansed Irrigated with Saline -Foul Odor after Cleansing No No -Bioengineered Tissue No No -Type of bioengineered Tissue EPIFIX -Expiration Date 10/21/22 -Product Lot Number [id number] -Percent Used 75 -Saline Lot Number [id number] -Bleeding Controlled with NA Pressure -Treatment Response Procedure Procedure Tolerated Well Tolerated Well #11- RT HEEL -Time 11:56 11:38 -Correct Patient Yes Yes -Correct Side, Site, Position Yes Yes -Correct Procedure Yes Yes -Procedure Performed Yes Yes -Type of Procedure Debridement Debridement -Clinical Debridement Subcutaneous Subcutaneous -Post Debridement Size (cm) - Length 1.1 0.8 -Post Debridement Size (cm) - Width 1.0 1.1 -Post Debridement Size (cm) - Depth 0.1 0.1 -Total Square Cm 1.10 0.88 -Wound/Ulcer Outcome Not Healed Not Healed -Ulcer Cleansing Rinsed/ Not Cleansed Irrigated with Saline -Foul Odor after Cleansing No No -Bioengineered Tissue No No -Type of bioengineered Tissue EPIFIX -Expiration Date 10/21/22 -Product Lot Number [id number] -Percent Used 25 -Saline Lot Number [id number] -Bleeding Controlled with NA Pressure -Treatment Response Procedure Procedure Tolerated Well Tolerated Well Pain Scale: 0-10 Numeric Is Patient Pain Free? Yes Yes Wound debrided: Right posterior heel Laterality: Right Type of Debridement: Excisional debridement Anesthesia Used: 4% Lidocaine Solution Depth: in the subcutaneous layer Percentage of wound debrided: 100 Instrument Used: #15 blade Tissue Removed: Adherent slough, fibrin, hyperkeratotic tissue Severity: Fat Layer Exposed Amount of bleeding with debridement: Mild Bleeding Controlled with: Pressure Patient tolerated procedure well - Additional Wound Wound debrided: Right posterior calf Laterality: Right Type of Debridement: Excisional debridement Anesthesia Used: 4% Lidocaine Solution Depth: in the subcutaneous layer Percentage of wound debrided: 100 Instrument Used: 3mm curette Tissue Removed: Adherent slough, fibrin, hyperkeratotic tissue Severity: Fat Layer Exposed Amount of bleeding with debridement: Mild Bleeding Controlled with: Pressure Patient tolerated procedure: Patient tolerated procedure well Assessment/Plan Assessment: Ulcer to posterior right heel. Plan: Patient was again examined and evaluated in detail today. The aforementioned ulcers were both subcutaneously debrided as noted in the clinical panel. The ulcers were then carefully cleansed, and the right posterior heel and calf ulcers were then dressed with chris to the ulcer bases , followed by an offloading dry sterile dressing. The dressing is to be changed in this manner daily. Dressing supplies ordered for the patient. He was instructed to keep these areas offloaded as much as possible in order to help heal the ulcer sites. He purchased purple waffle foam offloading pads to cut out areas to better offload his ulcer sites. He is to continue to use his padded offloading boots with heel cut outs. He was instructed to continue with a diet high in protein to help optimize ulcer healing. He was educated on all signs and symptoms of local and systemic infection and was instructed to go to the ER immediately should he notice any. All questions were answered to the patient's satisfaction. Patient will follow-up in clinic in 1 week for further treatment and evaluation, or sooner if needed.
[2018-02-09 12:15] VITALS: BP 150/77; PULSE 72; RESP 18; TEMP 36.1; BMI 26.6
--- NOTE | 2018-02-09 14:14 | PCM.WC.PN ---
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 Status: Acute Current Visit: No Code(s): E11.621 - Type 2 diabetes mellitus with foot ulcer; L97.416 - Non-pressure chronic ulcer of right heel and midfoot with bone involvement without evidence of necrosis (3) Delayed wound healing Status: Acute Current Visit: No Code(s): T14.8XXD - Other injury of unspecified body region, subsequent encounter (4) Type 2 diabetes mellitus with diabetic polyneuropathy Status: Acute Current Visit: No Code(s): E11.42 - Type 2 diabetes mellitus with diabetic polyneuropathy (5) Chronic incomplete quadriplegia Status: Acute Current Visit: No Code(s): G82.50 - Quadriplegia, unspecified (6) Malnutrition Status: Acute Current Visit: No Code(s): E46 - Unspecified protein-calorie malnutrition Type of Wound Date of Service: 02/09/18 Chief Complaint: Ulcer on right heel History of Wound: This is a 67-year-old white male who presents to the wound care center today for evaluation of a right heel ulcer. He has a past medical history as described above. The patient states that on the night of 06/06/2017, his heel protectors came off all night in bed and shortly after he noted an ulceration on his right heel and a purplish discoloration on his left heel. He states that there has been yellow drainage coming from his right heel and that yesterday he started using Granulex and Aquacel silver on the right heel. He denies any pain or foul-smelling discharge, however he does state that he has decreased sensation to his lower extremities due to his history of a spinal cord injury in high school. He currently has a suprapubic catheter as well due to his history of recurrent UTIs and obstructive uropathy. He also notes that his low air loss hospital bed is needing to be repaired so he is unable to use this at this time. The patient does state that he has a history of ulcerations on his right heel in the past where he had to be seen at a wound care center and ended up needing to have skin substitutes applied. He does note that he lives home alone and that he receives home health throughout the week. Patient was then referred to Dr. Gan at his office, who subsequently admitted the patient on Jul 04, for IV antibiotics and evaluation by ID. Infectious disease planned to d/c patient home on doxy 100mg bid, amoxicillin 500mg tid, and flagyl 500mg tid for planned 6 week course. He has since discharge been receiving daily dressing changes consisting of aquacel ag and a dry sterile dressing as well as wearing his PRAFO boots at all times. He otherwise denies any signs of systemic infection and denies any fever, chills, nausea, vomiting, chest pain or pressure, syncope or presyncopal episodes. Progress of Wound: Patient returns to wound healing center this week for continued treatment of right heel ulcer and right posterior calf ulcer. Patient continues to wear offloading padded boots with heel cut outs over the last week. Patient had daily chris dressing changes. He says that with his condition, he does not know of any way to completely keep pressure off of the areas, but that he is doing his best. He denies any purulence to the area. Ulcer sites remain stable. He denies any feeling of nausea, vomiting, fever, or chills currently. - Physical Exam Vital Signs Temp Pulse Resp BP 97 F L 72 18 150/77 H 02/09/18 12:15 02/09/18 12:15 02/09/18 12:15 02/09/18 12:15 General: Alert, Oriented x3, Cooperative, No apparent distress Extremities: Capillary Refill Less than 3 Seconds, No Calf Tenderness - Negative Sarah Beth and Pretty sign, Diminished Peripheral Pulses Skin: Ulcer/ Wound - Ulcer to the right posterior heel with fat layer exposed. Measurements noted below. Overall, ulcer remains fairly stable since last week. The base continues to be a mixture of adherent slough, fibrin, granular tissue as well as surrounding hyperkeratotic tissue. Ulcer base remains close to calcaneus. There is no malodor, no purulence, no extending cellulitis, no increase in warmth appreciated to the area today. Ulcer to the right posterior calf is also noted with measurements. Slight improvement again noted this week. The base continues to be a mixture of adherent slough, fibrin, granular tissue as well as some surrounding hyperkeratotic tissue. There continues to be no probing to bone, no tracking, no undermining, no purulence, no malodor, no extending cellulitis, and no increase in warmth to the ulcer site. Wound Measurements and Assessment WC - Nurse 1 - General Ulcer Measurement Start: 01/26/18 11:37 Freq: Status: Active Protocol: Activity Type Activity Date Activity User E-Sign Co-Sign Detail Recorded Client Recorded Date Recorded By Document 02/09/18 12:15 RB [id number] 02/09/18 12:18 RB 02/09/18 12:15 Wound Center Nurse 1 [Ulcer Assessment] #12 R Post LE -Combined with other wound No -Current Size (cm) - Length 2.4 -Current Size (cm) - Width 0.6 -Current Size (cm) - Depth 0.2 -Total Square Cm 1.44 -Photo Taken No -Tunneling No -Undermining/Tunneling No -Circular Undermining No -Exudate Amt Small (1-33%) -Exudate Type Serosanguineous -Wound Margin Thickened & Rolled Under -Granulation Amt Medium (34-66%) -Granulation Quality Onset Red -Slough/Fibrin Yes -Necrosis Amt Medium (34-66%) -Necrotic Tissue Type Adherent Slough -Structure Exposed N/A -Texture (Francia-wound Skin Appearance) Assessed -Moisture (Francia-wound Skin Appearance Assessed ) -Color (Francia-wound Skin Appearance) Assessed -Temperature (Francia-wound Skin No Abnormality Appearance) (Pt Warm) -Tenderness on Palpation (Francia-wound No Skin Appearance) -Ulcer Cleansing Rinsed/ Irrigated with Saline -Foul Odor after Cleansing No -Anesthetic Used 4% Lidocaine Solution #11- RT HEEL -Combined with other wound No -Current Size (cm) - Length 0.4 -Current Size (cm) - Width 0.4 -Current Size (cm) - Depth 0.2 -Total Square Cm 0.16 -Photo Taken No -Tunneling No -Undermining/Tunneling No -Circular Undermining No -Exudate Amt None Present (0 %) -Wound Margin Distinct, Outline Attached -Granulation Amt Small (1-33%) -Granulation Quality Onset -Slough/Fibrin Yes -Necrosis Amt Large (67-100%) -Necrotic Tissue Type Adherent Slough -Structure Exposed N/A -Texture (Francia-wound Skin Appearance) Assessed -Moisture (Francia-wound Skin Appearance Assessed ) -Color (Francia-wound Skin Appearance) Assessed -Temperature (Francia-wound Skin No Abnormality Appearance) (Pt Warm) -Tenderness on Palpation (Francia-wound No Skin Appearance) -Ulcer Cleansing Rinsed/ Irrigated with Saline -Foul Odor after Cleansing No -Anesthetic Used 4% Lidocaine Solution CHANTELLE - Nurse 2 - General Ulcer CM Notes Start: 01/26/18 11:37 Freq: Status: Active Protocol: Activity Type Activity Date Activity User E-Sign Co-Sign Detail Recorded Client Recorded Date Recorded By Document 02/09/18 12:32 DV [id number] 02/09/18 12:37 DV 02/09/18 12:32 Wound Center Nurse 2 [Procedure/Treatment] #12 R Post LE -Time 12:34 -Correct Patient Yes -Correct Side, Site, Position Yes -Correct Procedure Yes -Procedure Performed Yes -Type of Procedure Debridement -Clinical Debridement Subcutaneous -Post Debridement Size (cm) - Length 3.0 -Post Debridement Size (cm) - Width 0.8 -Post Debridement Size (cm) - Depth 0.1 -Total Square Cm 2.40 -Wound/Ulcer Outcome Not Healed -Ulcer Cleansing Rinsed/ Irrigated with Saline -Foul Odor after Cleansing No -Bleeding Controlled with Pressure -Treatment Response Procedure Tolerated Well #11- RT HEEL -Time 12:33 -Correct Patient Yes -Correct Side, Site, Position Yes -Correct Procedure Yes -Procedure Performed Yes -Type of Procedure Debridement -Clinical Debridement Subcutaneous -Post Debridement Size (cm) - Length 0.8 -Post Debridement Size (cm) - Width 1.2 -Post Debridement Size (cm) - Depth 0.1 -Total Square Cm 0.96 -Wound/Ulcer Outcome Not Healed -Ulcer Cleansing Rinsed/ Irrigated with Saline -Foul Odor after Cleansing No -Bioengineered Tissue No -Bleeding Controlled with Pressure -Treatment Response Procedure Tolerated Well [See Physician Procedure note for Specifics] Pain Scale: 0-10 Numeric [Pain] -Is Patient Pain Free? Yes Musculoskeletal: No Tenderness to Palpation of Joints or Extremities, Muscle Wasting Neurological: - - Patient is an incomplete quadriplegic with very slight sensation in some areas throughout the lower extremity Psych/Mental Status: Normal Affect, Appropriate Debridement Note Post-Debridement Measurements/Treatment WC - Nurse 2 - General Ulcer CM Notes Start: 01/26/18 11:37 Freq: Status: Active Protocol: Activity Type Activity Date Activity User E-Sign Co-Sign Detail Recorded Client Recorded Date Recorded By Document 01/26/18 11:55 JS [id number] 01/26/18 12:11 JS Document 02/02/18 11:37 CS [id number] 02/02/18 11:43 CS Document 02/09/18 12:32 DV [id number] 02/09/18 12:37 DV 01/26/18 02/02/18 02/09/18 11:55 11:37 12:32 Wound Center Nurse 2 #12 R Post LE -Time 11:55 11:38 12:34 -Correct Patient Yes Yes Yes -Correct Side, Site, Position Yes Yes Yes -Correct Procedure Yes Yes Yes -Procedure Performed Yes Yes Yes -Type of Procedure Debridement Debridement Debridement -Clinical Debridement Subcutaneous Subcutaneous Subcutaneous -Post Debridement Size (cm) - Length 2.8 2.7 3.0 -Post Debridement Size (cm) - Width 0.9 0.7 0.8 -Post Debridement Size (cm) - Depth 0.2 0.2 0.1 -Total Square Cm 2.52 1.89 2.40 -Wound/Ulcer Outcome Not Healed Not Healed Not Healed -Ulcer Cleansing Rinsed/ Not Cleansed Rinsed/ Irrigated with Irrigated with Saline Saline -Foul Odor after Cleansing No No No -Bioengineered Tissue No No -Type of bioengineered Tissue EPIFIX -Expiration Date 10/21/22 -Product Lot Number [id number] -Percent Used 75 -Saline Lot Number [id number] -Bleeding Controlled with NA Pressure Pressure -Treatment Response Procedure Procedure Procedure Tolerated Well Tolerated Well Tolerated Well #11- RT HEEL -Time 11:56 11:38 12:33 -Correct Patient Yes Yes Yes -Correct Side, Site, Position Yes Yes Yes -Correct Procedure Yes Yes Yes -Procedure Performed Yes Yes Yes -Type of Procedure Debridement Debridement Debridement -Clinical Debridement Subcutaneous Subcutaneous Subcutaneous -Post Debridement Size (cm) - Length 1.1 0.8 0.8 -Post Debridement Size (cm) - Width 1.0 1.1 1.2 -Post Debridement Size (cm) - Depth 0.1 0.1 0.1 -Total Square Cm 1.10 0.88 0.96 -Wound/Ulcer Outcome Not Healed Not Healed Not Healed -Ulcer Cleansing Rinsed/ Not Cleansed Rinsed/ Irrigated with Irrigated with Saline Saline -Foul Odor after Cleansing No No No -Bioengineered Tissue No No No -Type of bioengineered Tissue EPIFIX -Expiration Date 10/21/22 -Product Lot Number [id number] -Percent Used 25 -Saline Lot Number [id number] -Bleeding Controlled with NA Pressure Pressure -Treatment Response Procedure Procedure Procedure Tolerated Well Tolerated Well Tolerated Well Pain Scale: 0-10 Numeric Is Patient Pain Free? Yes Yes Yes Wound debrided: Right posterior heel Laterality: Right Type of Debridement: Excisional debridement Anesthesia Used: 4% Lidocaine Solution Depth: in the subcutaneous layer Percentage of wound debrided: 100 Instrument Used: #15 blade Tissue Removed: Adherent slough, fibrin, hyperkeratotic tissue Severity: Fat Layer Exposed Amount of bleeding with debridement: Mild Bleeding Controlled with: Pressure Patient tolerated procedure well - Additional Wound Wound debrided: Right posterior calf Laterality: Right Type of Debridement: Excisional debridement Anesthesia Used: 4% Lidocaine Solution Depth: in the subcutaneous layer Percentage of wound debrided: 100 Instrument Used: 3mm curette Tissue Removed: Adherent slough, fibrin, hyperkeratotic tissue Severity: Fat Layer Exposed Amount of bleeding with debridement: Mild Bleeding Controlled with: Pressure Patient tolerated procedure: Patient tolerated procedure well Assessment/Plan Assessment: Ulcer to posterior right heel. Plan: Patient was again examined and evaluated in detail today. The aforementioned ulcers were both subcutaneously debrided as noted in the clinical panel. The ulcers were then carefully cleansed, and the right posterior heel and calf ulcers were then dressed with chris to the ulcer bases, followed by an offloading dry sterile dressing. The dressing is to be changed in this manner daily by home health. He was instructed to keep these areas offloaded as much as possible in order to help heal the ulcer sites. Patient is interested in talking with [employer] in order to see about any modifications that can be made to his PRAFO boots. He is to continue to use his padded offloading boots with heel cut outs. He was instructed to continue with a diet high in protein to help optimize ulcer healing. He was educated on all signs and symptoms of local and systemic infection and was instructed to go to the ER immediately should he notice any. All questions were answered to the patient's satisfaction. Patient will follow-up in clinic in 1 week for further treatment and evaluation, or sooner if needed.
--- NOTE | 2018-02-09 14:18 | PN.PCM_ITS ---
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 Status: Acute Current Visit: No Code(s): E11.621 - Type 2 diabetes mellitus with foot ulcer; L97.416 - Non-pressure chronic ulcer of right heel and midfoot with bone involvement without evidence of necrosis (3) Delayed wound healing Status: Acute Current Visit: No Code(s): T14.8XXD - Other injury of unspecified body region, subsequent encounter (4) Type 2 diabetes mellitus with diabetic polyneuropathy Status: Acute Current Visit: No Code(s): E11.42 - Type 2 diabetes mellitus with diabetic polyneuropathy (5) Chronic incomplete quadriplegia Status: Acute Current Visit: No Code(s): G82.50 - Quadriplegia, unspecified (6) Malnutrition Status: Acute Current Visit: No Code(s): E46 - Unspecified protein-calorie malnutrition Type of Wound Date of Service: 02/09/18 Chief Complaint: Ulcer on right heel History of Wound: This is a 67-year-old white male who presents to the wound care center today for evaluation of a right heel ulcer. He has a past medical history as described above. The patient states that on the night of 06/06/2017, his heel protectors came off all night in bed and shortly after he noted an ulceration on his right heel and a purplish discoloration on his left heel. He states that there has been yellow drainage coming from his right heel and that yesterday he started using Granulex and Aquacel silver on the right heel. He denies any pain or foul-smelling discharge, however he does state that he has decreased sensation to his lower extremities due to his history of a spinal cord injury in high school. He currently has a suprapubic catheter as well due to his history of recurrent UTIs and obstructive uropathy. He also notes that his low air loss hospital bed is needing to be repaired so he is unable to use this at this time. The patient does state that he has a history of ulcerations on his right heel in the past where he had to be seen at a wound care center and ended up needing to have skin substitutes applied. He does note that he lives home alone and that he receives home health throughout the week. Patient was then referred to Dr. Gan at his office, who subsequently admitted the patient on Jul 04, for IV antibiotics and evaluation by ID. Infectious disease planned to d/c patient home on doxy 100mg bid, amoxicillin 500mg tid, and flagyl 500mg tid for planned 6 week course. He has since discharge been receiving daily dressing changes consisting of aquacel ag and a dry sterile dressing as well as wearing his PRAFO boots at all times. He otherwise denies any signs of systemic infection and denies any fever, chills, nausea, vomiting, chest pain or pressure, syncope or presyncopal episodes. Progress of Wound: Patient returns to wound healing center this week for continued treatment of right heel ulcer and right posterior calf ulcer. Patient continues to wear offloading padded boots with heel cut outs over the last week. Patient had daily chris dressing changes. He says that with his condition, he does not know of any way to completely keep pressure off of the areas, but that he is doing his best. He denies any purulence to the area. Ulcer sites remain stable. He denies any feeling of nausea, vomiting, fever, or chills currently. - Physical Exam Vital Signs Temp Pulse Resp BP 97 F L 72 18 150/77 H 02/09/18 12:15 02/09/18 12:15 02/09/18 12:15 02/09/18 12:15 General: Alert, Oriented x3, Cooperative, No apparent distress Extremities: Capillary Refill Less than 3 Seconds, No Calf Tenderness - Negative Sarah Beth and Pretty sign, Diminished Peripheral Pulses Skin: Ulcer/ Wound - Ulcer to the right posterior heel with fat layer exposed. Measurements noted below. Overall, ulcer remains fairly stable since last week. The base continues to be a mixture of adherent slough, fibrin, granular tissue as well as surrounding hyperkeratotic tissue. Ulcer base remains close to calcaneus. There is no malodor, no purulence, no extending cellulitis, no increase in warmth appreciated to the area today. Ulcer to the right posterior calf is also noted with measurements. Slight improvement again noted this week. The base continues to be a mixture of adherent slough, fibrin, granular tissue as well as some surrounding hyperkeratotic tissue. There continues to be no probing to bone, no tracking, no undermining, no purulence, no malodor, no extending cellulitis, and no increase in warmth to the ulcer site. Wound Measurements and Assessment WC - Nurse 1 - General Ulcer Measurement Start: 01/26/18 11:37 Freq: Status: Active Protocol: Activity Type Activity Date Activity User E-Sign Co-Sign Detail Recorded Client Recorded Date Recorded By Document 02/09/18 12:15 RB [id number] 02/09/18 12:18 RB 02/09/18 12:15 Wound Center Nurse 1 [Ulcer Assessment] #12 R Post LE -Combined with other wound No -Current Size (cm) - Length 2.4 -Current Size (cm) - Width 0.6 -Current Size (cm) - Depth 0.2 -Total Square Cm 1.44 -Photo Taken No -Tunneling No -Undermining/Tunneling No -Circular Undermining No -Exudate Amt Small (1-33%) -Exudate Type Serosanguineous -Wound Margin Thickened & Rolled Under -Granulation Amt Medium (34-66%) -Granulation Quality [place] Red -Slough/Fibrin Yes -Necrosis Amt Medium (34-66%) -Necrotic Tissue Type Adherent Slough -Structure Exposed N/A -Texture (Francia-wound Skin Appearance) Assessed -Moisture (Francia-wound Skin Appearance Assessed ) -Color (Francia-wound Skin Appearance) Assessed -Temperature (Francia-wound Skin No Abnormality Appearance) (Pt Warm) -Tenderness on Palpation (Francia-wound No Skin Appearance) -Ulcer Cleansing Rinsed/ Irrigated with Saline -Foul Odor after Cleansing No -Anesthetic Used 4% Lidocaine Solution #11- RT HEEL -Combined with other wound No -Current Size (cm) - Length 0.4 -Current Size (cm) - Width 0.4 -Current Size (cm) - Depth 0.2 -Total Square Cm 0.16 -Photo Taken No -Tunneling No -Undermining/Tunneling No -Circular Undermining No -Exudate Amt None Present (0 %) -Wound Margin Distinct, Outline Attached -Granulation Amt Small (1-33%) -Granulation Quality [place] -Slough/Fibrin Yes -Necrosis Amt Large (67-100%) -Necrotic Tissue Type Adherent Slough -Structure Exposed N/A -Texture (Francia-wound Skin Appearance) Assessed -Moisture (Francia-wound Skin Appearance Assessed ) -Color (Francia-wound Skin Appearance) Assessed -Temperature (Francia-wound Skin No Abnormality Appearance) (Pt Warm) -Tenderness on Palpation (Francia-wound No Skin Appearance) -Ulcer Cleansing Rinsed/ Irrigated with Saline -Foul Odor after Cleansing No -Anesthetic Used 4% Lidocaine Solution CHANTELLE - Nurse 2 - General Ulcer CM Notes Start: 01/26/18 11:37 Freq: Status: Active Protocol: Activity Type Activity Date Activity User E-Sign Co-Sign Detail Recorded Client Recorded Date Recorded By Document 02/09/18 12:32 DV [id number] 02/09/18 12:37 DV 02/09/18 12:32 Wound Center Nurse 2 [Procedure/Treatment] #12 R Post LE -Time 12:34 -Correct Patient Yes -Correct Side, Site, Position Yes -Correct Procedure Yes -Procedure Performed Yes -Type of Procedure Debridement -Clinical Debridement Subcutaneous -Post Debridement Size (cm) - Length 3.0 -Post Debridement Size (cm) - Width 0.8 -Post Debridement Size (cm) - Depth 0.1 -Total Square Cm 2.40 -Wound/Ulcer Outcome Not Healed -Ulcer Cleansing Rinsed/ Irrigated with Saline -Foul Odor after Cleansing No -Bleeding Controlled with Pressure -Treatment Response Procedure Tolerated Well #11- RT HEEL -Time 12:33 -Correct Patient Yes -Correct Side, Site, Position Yes -Correct Procedure Yes -Procedure Performed Yes -Type of Procedure Debridement -Clinical Debridement Subcutaneous -Post Debridement Size (cm) - Length 0.8 -Post Debridement Size (cm) - Width 1.2 -Post Debridement Size (cm) - Depth 0.1 -Total Square Cm 0.96 -Wound/Ulcer Outcome Not Healed -Ulcer Cleansing Rinsed/ Irrigated with Saline -Foul Odor after Cleansing No -Bioengineered Tissue No -Bleeding Controlled with Pressure -Treatment Response Procedure Tolerated Well [See Physician Procedure note for Specifics] Pain Scale: 0-10 Numeric [Pain] -Is Patient Pain Free? Yes Musculoskeletal: No Tenderness to Palpation of Joints or Extremities, Muscle Wasting Neurological: - - Patient is an incomplete quadriplegic with very slight sensation in some areas throughout the lower extremity Psych/Mental Status: Normal Affect, Appropriate Debridement Note Post-Debridement Measurements/Treatment WC - Nurse 2 - General Ulcer CM Notes Start: 01/26/18 11:37 Freq: Status: Active Protocol: Activity Type Activity Date Activity User E-Sign Co-Sign Detail Recorded Client Recorded Date Recorded By Document 01/26/18 11:55 JS [id number] 01/26/18 12:11 JS Document 02/02/18 11:37 CS [id number] 02/02/18 11:43 CS Document 02/09/18 12:32 DV [id number] 02/09/18 12:37 DV 01/26/18 02/02/18 02/09/18 11:55 11:37 12:32 Wound Center Nurse 2 #12 R Post LE -Time 11:55 11:38 12:34 -Correct Patient Yes Yes Yes -Correct Side, Site, Position Yes Yes Yes -Correct Procedure Yes Yes Yes -Procedure Performed Yes Yes Yes -Type of Procedure Debridement Debridement Debridement -Clinical Debridement Subcutaneous Subcutaneous Subcutaneous -Post Debridement Size (cm) - Length 2.8 2.7 3.0 -Post Debridement Size (cm) - Width 0.9 0.7 0.8 -Post Debridement Size (cm) - Depth 0.2 0.2 0.1 -Total Square Cm 2.52 1.89 2.40 -Wound/Ulcer Outcome Not Healed Not Healed Not Healed -Ulcer Cleansing Rinsed/ Not Cleansed Rinsed/ Irrigated with Irrigated with Saline Saline -Foul Odor after Cleansing No No No -Bioengineered Tissue No No -Type of bioengineered Tissue EPIFIX -Expiration Date 10/21/22 -Product Lot Number [id number] -Percent Used 75 -Saline Lot Number [id number] -Bleeding Controlled with NA Pressure Pressure -Treatment Response Procedure Procedure Procedure Tolerated Well Tolerated Well Tolerated Well #11- RT HEEL -Time 11:56 11:38 12:33 -Correct Patient Yes Yes Yes -Correct Side, Site, Position Yes Yes Yes -Correct Procedure Yes Yes Yes -Procedure Performed Yes Yes Yes -Type of Procedure Debridement Debridement Debridement -Clinical Debridement Subcutaneous Subcutaneous Subcutaneous -Post Debridement Size (cm) - Length 1.1 0.8 0.8 -Post Debridement Size (cm) - Width 1.0 1.1 1.2 -Post Debridement Size (cm) - Depth 0.1 0.1 0.1 -Total Square Cm 1.10 0.88 0.96 -Wound/Ulcer Outcome Not Healed Not Healed Not Healed -Ulcer Cleansing Rinsed/ Not Cleansed Rinsed/ Irrigated with Irrigated with Saline Saline -Foul Odor after Cleansing No No No -Bioengineered Tissue No No No -Type of bioengineered Tissue EPIFIX -Expiration Date 10/21/22 -Product Lot Number [id number] -Percent Used 25 -Saline Lot Number [id number] -Bleeding Controlled with NA Pressure Pressure -Treatment Response Procedure Procedure Procedure Tolerated Well Tolerated Well Tolerated Well Pain Scale: 0-10 Numeric Is Patient Pain Free? Yes Yes Yes Wound debrided: Right posterior heel Laterality: Right Type of Debridement: Excisional debridement Anesthesia Used: 4% Lidocaine Solution Depth: in the subcutaneous layer Percentage of wound debrided: 100 Instrument Used: #15 blade Tissue Removed: Adherent slough, fibrin, hyperkeratotic tissue Severity: Fat Layer Exposed Amount of bleeding with debridement: Mild Bleeding Controlled with: Pressure Patient tolerated procedure well - Additional Wound Wound debrided: Right posterior calf Laterality: Right Type of Debridement: Excisional debridement Anesthesia Used: 4% Lidocaine Solution Depth: in the subcutaneous layer Percentage of wound debrided: 100 Instrument Used: 3mm curette Tissue Removed: Adherent slough, fibrin, hyperkeratotic tissue Severity: Fat Layer Exposed Amount of bleeding with debridement: Mild Bleeding Controlled with: Pressure Patient tolerated procedure: Patient tolerated procedure well Assessment/Plan Assessment: Ulcer to posterior right heel. Plan: Patient was again examined and evaluated in detail today. The aforementioned ulcers were both subcutaneously debrided as noted in the clinical panel. The ulcers were then carefully cleansed, and the right posterior heel and calf ulcers were then dressed with chris to the ulcer bases , followed by an offloading dry sterile dressing. The dressing is to be changed in this manner daily by home health. He was instructed to keep these areas offloaded as much as possible in order to help heal the ulcer sites. Patient is interested in talking with [employer] in order to see about any modifications that can be made to his PRAFO boots. He is to continue to use his padded offloading boots with heel cut outs. He was instructed to continue with a diet high in protein to help optimize ulcer healing. He was educated on all signs and symptoms of local and systemic infection and was instructed to go to the ER immediately should he notice any. All questions were answered to the patient's satisfaction. Patient will follow-up in clinic in 1 week for further treatment and evaluation, or sooner if needed.
[2018-02-16 10:54] VITALS: BP 92/60; PULSE 73; RESP 16; TEMP 35.9; BMI 26.6
--- NOTE | 2018-02-16 13:15 | PCM.WC.PN ---
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 Status: Acute Current Visit: No Code(s): E11.621 - Type 2 diabetes mellitus with foot ulcer; L97.416 - Non-pressure chronic ulcer of right heel and midfoot with bone involvement without evidence of necrosis (3) Delayed wound healing Status: Acute Current Visit: No Code(s): T14.8XXD - Other injury of unspecified body region, subsequent encounter (4) Type 2 diabetes mellitus with diabetic polyneuropathy Status: Acute Current Visit: No Code(s): E11.42 - Type 2 diabetes mellitus with diabetic polyneuropathy (5) Chronic incomplete quadriplegia Status: Acute Current Visit: No Code(s): G82.50 - Quadriplegia, unspecified (6) Malnutrition Status: Acute Current Visit: No Code(s): E46 - Unspecified protein-calorie malnutrition Type of Wound Chief Complaint: Ulcer on right heel History of Wound: This is a 67-year-old white male who presents to the wound care center today for evaluation of a right heel ulcer. He has a past medical history as described above. The patient states that on the night of 06/06/2017, his heel protectors came off all night in bed and shortly after he noted an ulceration on his right heel and a purplish discoloration on his left heel. He states that there has been yellow drainage coming from his right heel and that yesterday he started using Granulex and Aquacel silver on the right heel. He denies any pain or foul-smelling discharge, however he does state that he has decreased sensation to his lower extremities due to his history of a spinal cord injury in high school. He currently has a suprapubic catheter as well due to his history of recurrent UTIs and obstructive uropathy. He also notes that his low air loss hospital bed is needing to be repaired so he is unable to use this at this time. The patient does state that he has a history of ulcerations on his right heel in the past where he had to be seen at a wound care center and ended up needing to have skin substitutes applied. He does note that he lives home alone and that he receives home health throughout the week. Patient was then referred to Dr. Gan at his office, who subsequently admitted the patient on Jul 04, for IV antibiotics and evaluation by ID. Infectious disease planned to d/c patient home on doxy 100mg bid, amoxicillin 500mg tid, and flagyl 500mg tid for planned 6 week course. He has since discharge been receiving daily dressing changes consisting of aquacel ag and a dry sterile dressing as well as wearing his PRAFO boots at all times. He otherwise denies any signs of systemic infection and denies any fever, chills, nausea, vomiting, chest pain or pressure, syncope or presyncopal episodes. Progress of Wound: Patient returns to wound healing center this week for continued treatment of right heel ulcer and right posterior calf ulcer. Patient continues to wear offloading padded boots with heel cut outs over the last week. Patient had daily chris dressing changes. Patient says he has an appointment withLulu pagan next week to discuss offloading bracing options. He denies any purulence to the area. Ulcer sites remain stable. He denies any feeling of nausea, vomiting, fever, or chills currently. - Physical Exam Vital Signs Temp Pulse Resp BP 96.6 F L 73 16 92/60 02/16/18 10:54 02/16/18 10:54 02/16/18 10:54 02/16/18 10:54 General: Alert, Oriented x3, Cooperative, No apparent distress Extremities: Capillary Refill Less than 3 Seconds, No Calf Tenderness - Negative Sarah Beth and Pretty sign, Diminished Peripheral Pulses Skin: Ulcer/ Wound - Ulcer to right posterior heel with fat layer exposed. Measurements are noted. The base continues to be a mixture of adherent slough, fibrin, granular tissue as well as some slight crust surrounding hyperkeratotic tissue. The ulcer base remains close to the calcaneus. There continues to be no malodor, no purulence, no extending or surrounding cellulitis, no increase in warmth. Ulcer also noted to the right posterior calf. Measurements are noted. Slight improvement in appearance noted again this week. The base continues to be a mixture of adherent slough, fibrin, granular tissue, as well as some slight surrounding hyperkeratotic tissue. There continues to be no probing to bone, no tracking, no undermining, no purulence, no malodor, no extending cellulitis, and no increase in warmth. Wound Measurements and Assessment WC - Nurse 1 - General Ulcer Measurement Start: 01/26/18 11:37 Freq: Status: Active Protocol: Activity Type Activity Date Activity User E-Sign Co-Sign Detail Recorded Client Recorded Date Recorded By Document 02/16/18 10:54 [id number] 02/16/18 11:00 02/16/18 10:54 Wound Center Nurse 1 [Ulcer Assessment] #12 R Post LE -Combined with other wound No -Current Size (cm) - Length 2.1 -Current Size (cm) - Width 0.7 -Current Size (cm) - Depth 0.2 -Total Square Cm 1.47 -Photo Taken No -Epithelialization None Present -Tunneling No -Undermining/Tunneling No -Circular Undermining No -Classification - Thickness Full Thickness without Exposed Support Structure -Exudate Amt Small (1-33%) -Exudate Type Serosanguineous -Wound Margin Distinct, Outline Attached -Granulation Amt Medium (34-66%) -Granulation Quality [place] -Necrosis Amt Medium (34-66%) -Necrotic Tissue Type Adherent Slough -Structure Exposed Fat Layer Exposed None/Limited to Skin Breakdown -Texture (Francia-wound Skin Appearance) Assessed Scarring -Moisture (Francia-wound Skin Appearance Assessed ) Dry/Scaly -Color (Francia-wound Skin Appearance) No Abnormality -Temperature (Francia-wound Skin No Abnormality Appearance) (Pt Warm) -Tenderness on Palpation (Francia-wound No Skin Appearance) -Ulcer Cleansing Rinsed/ Irrigated with Saline -Foul Odor after Cleansing No -Anesthetic Used 4% Lidocaine Solution #11- RT HEEL -Combined with other wound No -Current Size (cm) - Length 0.5 -Current Size (cm) - Width 0.8 -Current Size (cm) - Depth 0.2 -Total Square Cm 0.40 -Photo Taken No -Epithelialization None Present -Tunneling No -Undermining/Tunneling No -Circular Undermining No -Classification - Thickness Full Thickness without Exposed Support Structure -Exudate Amt Small (1-33%) -Exudate Type Serosanguineous -Wound Margin Distinct, Outline Attached -Granulation Amt Medium (34-66%) -Granulation Quality [place] -Necrosis Amt Medium (34-66%) -Necrotic Tissue Type Adherent Slough -Structure Exposed Fat Layer Exposed None/Limited to Skin Breakdown -Texture (Francia-wound Skin Appearance) Assessed Scarring -Moisture (Francia-wound Skin Appearance Assessed ) Dry/Scaly -Color (Francia-wound Skin Appearance) No Abnormality Assessed -Temperature (Francia-wound Skin No Abnormality Appearance) (Pt Warm) -Tenderness on Palpation (Francia-wound No Skin Appearance) -Ulcer Cleansing Rinsed/ Irrigated with Saline -Foul Odor after Cleansing No -Anesthetic Used 4% Lidocaine Solution WC - Nurse 2 - General Ulcer CM Notes Start: 01/26/18 11:37 Freq: Status: Active Protocol: Activity Type Activity Date Activity User E-Sign Co-Sign Detail Recorded Client Recorded Date Recorded By Document 02/16/18 11:06 [id number] 02/16/18 11:13 02/16/18 11:06 Wound Center Nurse 2 [Procedure/Treatment] #12 R Post LE -Time 11:13 -Correct Patient Yes -Correct Side, Site, Position Yes -Correct Procedure Yes -Procedure Performed Yes -Type of Procedure Debridement -Clinical Debridement Subcutaneous -Post Debridement Size (cm) - Length 2.8 -Post Debridement Size (cm) - Width 0.6 -Post Debridement Size (cm) - Depth 0.2 -Total Square Cm 1.68 -Wound/Ulcer Outcome Not Healed -Ulcer Cleansing Not Cleansed -Foul Odor after Cleansing No -Bioengineered Tissue No -Bleeding Controlled with Pressure -Treatment Response Procedure Tolerated Well #11- RT HEEL -Time 11:09 -Correct Patient Yes -Correct Side, Site, Position Yes -Correct Procedure Yes -Procedure Performed Yes -Type of Procedure Debridement -Clinical Debridement Subcutaneous -Post Debridement Size (cm) - Length 0.6 -Post Debridement Size (cm) - Width 0.9 -Post Debridement Size (cm) - Depth 0.1 -Total Square Cm 0.54 -Wound/Ulcer Outcome Not Healed -Ulcer Cleansing Not Cleansed -Foul Odor after Cleansing No -Bioengineered Tissue No -Bleeding Controlled with Pressure -Treatment Response Procedure Tolerated Well [See Physician Procedure note for Specifics] Pain Scale: 0-10 Numeric [Pain] -Is Patient Pain Free? Yes Musculoskeletal: No Tenderness to Palpation of Joints or Extremities, Muscle Wasting Neurological: - - Patient is an incomplete quadriplegic with very slight sensation in some areas throughout the lower extremity Psych/Mental Status: Normal Affect, Appropriate Debridement Note Post-Debridement Measurements/Treatment WC - Nurse 2 - General Ulcer CM Notes Start: 01/26/18 11:37 Freq: Status: Active Protocol: Activity Type Activity Date Activity User E-Sign Co-Sign Detail Recorded Client Recorded Date Recorded By Document 01/26/18 11:55 JS [id number] 01/26/18 12:11 JS Document 02/02/18 11:37 CS [id number] 02/02/18 11:43 CS Document 02/09/18 12:32 DV [id number] 02/09/18 12:37 DV Document 02/16/18 11:06 CS [id number] 02/16/18 11:13 CS 01/26/18 02/02/18 02/09/18 11:55 11:37 12:32 Wound Center Nurse 2 #12 R Post LE -Time 11:55 11:38 12:34 -Correct Patient Yes Yes Yes -Correct Side, Site, Position Yes Yes Yes -Correct Procedure Yes Yes Yes -Procedure Performed Yes Yes Yes -Type of Procedure Debridement Debridement Debridement -Clinical Debridement Subcutaneous Subcutaneous Subcutaneous -Post Debridement Size (cm) - Length 2.8 2.7 3.0 -Post Debridement Size (cm) - Width 0.9 0.7 0.8 -Post Debridement Size (cm) - Depth 0.2 0.2 0.1 -Total Square Cm 2.52 1.89 2.40 -Wound/Ulcer Outcome Not Healed Not Healed Not Healed -Ulcer Cleansing Rinsed/ Not Cleansed Rinsed/ Irrigated with Irrigated with Saline Saline -Foul Odor after Cleansing No No No -Bioengineered Tissue No No -Type of bioengineered Tissue EPIFIX -Expiration Date 10/21/22 -Product Lot Number [id number] -Percent Used 75 -Saline Lot Number [id number] -Bleeding Controlled with NA Pressure Pressure -Treatment Response Procedure Procedure Procedure Tolerated Well Tolerated Well Tolerated Well #11- RT HEEL -Time 11:56 11:38 12:33 -Correct Patient Yes Yes Yes -Correct Side, Site, Position Yes Yes Yes -Correct Procedure Yes Yes Yes -Procedure Performed Yes Yes Yes -Type of Procedure Debridement Debridement Debridement -Clinical Debridement Subcutaneous Subcutaneous Subcutaneous -Post Debridement Size (cm) - Length 1.1 0.8 0.8 -Post Debridement Size (cm) - Width 1.0 1.1 1.2 -Post Debridement Size (cm) - Depth 0.1 0.1 0.1 -Total Square Cm 1.10 0.88 0.96 -Wound/Ulcer Outcome Not Healed Not Healed Not Healed -Ulcer Cleansing Rinsed/ Not Cleansed Rinsed/ Irrigated with Irrigated with Saline Saline -Foul Odor after Cleansing No No No -Bioengineered Tissue No No No -Type of bioengineered Tissue EPIFIX -Expiration Date 10/21/22 -Product Lot Number [id number] -Percent Used 25 -Saline Lot Number [id number] -Bleeding Controlled with NA Pressure Pressure -Treatment Response Procedure Procedure Procedure Tolerated Well Tolerated Well Tolerated Well Pain Scale: 0-10 Numeric Is Patient Pain Free? Yes Yes Yes 02/16/18 11:06 Wound Center Nurse 2 #12 R Post LE -Time 11:13 -Correct Patient Yes -Correct Side, Site, Position Yes -Correct Procedure Yes -Procedure Performed Yes -Type of Procedure Debridement -Clinical Debridement Subcutaneous -Post Debridement Size (cm) - Length 2.8 -Post Debridement Size (cm) - Width 0.6 -Post Debridement Size (cm) - Depth 0.2 -Total Square Cm 1.68 -Wound/Ulcer Outcome Not Healed -Ulcer Cleansing Not Cleansed -Foul Odor after Cleansing No -Bioengineered Tissue No -Type of bioengineered Tissue -Expiration Date -Product Lot Number -Percent Used -Saline Lot Number -Bleeding Controlled with Pressure -Treatment Response Procedure Tolerated Well #11- RT HEEL -Time 11:09 -Correct Patient Yes -Correct Side, Site, Position Yes -Correct Procedure Yes -Procedure Performed Yes -Type of Procedure Debridement -Clinical Debridement Subcutaneous -Post Debridement Size (cm) - Length 0.6 -Post Debridement Size (cm) - Width 0.9 -Post Debridement Size (cm) - Depth 0.1 -Total Square Cm 0.54 -Wound/Ulcer Outcome Not Healed -Ulcer Cleansing Not Cleansed -Foul Odor after Cleansing No -Bioengineered Tissue No -Type of bioengineered Tissue -Expiration Date -Product Lot Number -Percent Used -Saline Lot Number -Bleeding Controlled with Pressure -Treatment Response Procedure Tolerated Well Pain Scale: 0-10 Numeric Is Patient Pain Free? Yes Wound debrided: Right posterior heel Laterality: Right Type of Debridement: Excisional debridement Anesthesia Used: 4% Lidocaine Solution Depth: in the subcutaneous layer Percentage of wound debrided: 100 Instrument Used: #15 blade Tissue Removed: Adherent slough, fibrin, hyperkeratotic tissue Severity: Fat Layer Exposed Amount of bleeding with debridement: Mild Bleeding Controlled with: Pressure Patient tolerated procedure well - Additional Wound Wound debrided: Right posterior calf Laterality: Right Type of Debridement: Excisional debridement Anesthesia Used: 4% Lidocaine Solution Depth: in the subcutaneous layer Percentage of wound debrided: 100 Instrument Used: 3mm curette Tissue Removed: Adherent slough, fibrin, hyperkeratotic tissue Severity: Fat Layer Exposed Amount of bleeding with debridement: Mild Bleeding Controlled with: Pressure Patient tolerated procedure: Patient tolerated procedure well Assessment/Plan Assessment: Ulcer to posterior right heel. Plan: Patient was again examined and evaluated in detail today. The aforementioned ulcers were both subcutaneously debrided as noted in the clinical panel. The ulcers were then carefully cleansed, and the right posterior heel and calf ulcers were then dressed with chris to the ulcer bases, followed by an offloading dry sterile dressing. The dressing is to be changed in this manner daily by home health. He was instructed to keep these areas offloaded as much as possible in order to help heal the ulcer sites. Patient has an appointment with Vanessa next week to discuss his offloading bracing options. He is to continue to use his padded offloading boots with heel cut outs. He was instructed to continue with a diet high in protein to help optimize ulcer healing. He was educated on all signs and symptoms of local and systemic infection and was instructed to go to the ER immediately should he notice any. All questions were answered to the patient's satisfaction. Patient will follow-up in clinic in 1 week for further treatment and evaluation, or sooner if needed.
--- NOTE | 2018-02-16 13:19 | PN.PCM_ITS ---
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 Status: Acute Current Visit: No Code(s): E11.621 - Type 2 diabetes mellitus with foot ulcer; L97.416 - Non-pressure chronic ulcer of right heel and midfoot with bone involvement without evidence of necrosis (3) Delayed wound healing Status: Acute Current Visit: No Code(s): T14.8XXD - Other injury of unspecified body region, subsequent encounter (4) Type 2 diabetes mellitus with diabetic polyneuropathy Status: Acute Current Visit: No Code(s): E11.42 - Type 2 diabetes mellitus with diabetic polyneuropathy (5) Chronic incomplete quadriplegia Status: Acute Current Visit: No Code(s): G82.50 - Quadriplegia, unspecified (6) Malnutrition Status: Acute Current Visit: No Code(s): E46 - Unspecified protein-calorie malnutrition Type of Wound Chief Complaint: Ulcer on right heel History of Wound: This is a 67-year-old white male who presents to the wound care center today for evaluation of a right heel ulcer. He has a past medical history as described above. The patient states that on the night of 06/06/2017, his heel protectors came off all night in bed and shortly after he noted an ulceration on his right heel and a purplish discoloration on his left heel. He states that there has been yellow drainage coming from his right heel and that yesterday he started using Granulex and Aquacel silver on the right heel. He denies any pain or foul-smelling discharge, however he does state that he has decreased sensation to his lower extremities due to his history of a spinal cord injury in high school. He currently has a suprapubic catheter as well due to his history of recurrent UTIs and obstructive uropathy. He also notes that his low air loss hospital bed is needing to be repaired so he is unable to use this at this time. The patient does state that he has a history of ulcerations on his right heel in the past where he had to be seen at a wound care center and ended up needing to have skin substitutes applied. He does note that he lives home alone and that he receives home health throughout the week. Patient was then referred to Dr. Gan at his office, who subsequently admitted the patient on Jul 04, for IV antibiotics and evaluation by ID. Infectious disease planned to d/c patient home on doxy 100mg bid, amoxicillin 500mg tid, and flagyl 500mg tid for planned 6 week course. He has since discharge been receiving daily dressing changes consisting of aquacel ag and a dry sterile dressing as well as wearing his PRAFO boots at all times. He otherwise denies any signs of systemic infection and denies any fever, chills, nausea, vomiting, chest pain or pressure, syncope or presyncopal episodes. Progress of Wound: Patient returns to wound healing center this week for continued treatment of right heel ulcer and right posterior calf ulcer. Patient continues to wear offloading padded boots with heel cut outs over the last week. Patient had daily chris dressing changes. Patient says he has an appointment withLulu pagan next week to discuss offloading bracing options. He denies any purulence to the area. Ulcer sites remain stable. He denies any feeling of nausea, vomiting, fever, or chills currently. - Physical Exam Vital Signs Temp Pulse Resp BP 96.6 F L 73 16 92/60 02/16/18 10:54 02/16/18 10:54 02/16/18 10:54 02/16/18 10:54 General: Alert, Oriented x3, Cooperative, No apparent distress Extremities: Capillary Refill Less than 3 Seconds, No Calf Tenderness - Negative Sarah Beth and Pretty sign, Diminished Peripheral Pulses Skin: Ulcer/ Wound - Ulcer to right posterior heel with fat layer exposed. Measurements are noted. The base continues to be a mixture of adherent slough, fibrin, granular tissue as well as some slight crust surrounding hyperkeratotic tissue. The ulcer base remains close to the calcaneus. There continues to be no malodor, no purulence, no extending or surrounding cellulitis, no increase in warmth. Ulcer also noted to the right posterior calf. Measurements are noted. Slight improvement in appearance noted again this week. The base continues to be a mixture of adherent slough, fibrin, granular tissue, as well as some slight surrounding hyperkeratotic tissue. There continues to be no probing to bone, no tracking, no undermining, no purulence, no malodor, no extending cellulitis, and no increase in warmth. Wound Measurements and Assessment WC - Nurse 1 - General Ulcer Measurement Start: 01/26/18 11:37 Freq: Status: Active Protocol: Activity Type Activity Date Activity User E-Sign Co-Sign Detail Recorded Client Recorded Date Recorded By Document 02/16/18 10:54 [id number] 02/16/18 11:00 02/16/18 10:54 Wound Center Nurse 1 [Ulcer Assessment] #12 R Post LE -Combined with other wound No -Current Size (cm) - Length 2.1 -Current Size (cm) - Width 0.7 -Current Size (cm) - Depth 0.2 -Total Square Cm 1.47 -Photo Taken No -Epithelialization None Present -Tunneling No -Undermining/Tunneling No -Circular Undermining No -Classification - Thickness Full Thickness without Exposed Support Structure -Exudate Amt Small (1-33%) -Exudate Type Serosanguineous -Wound Margin Distinct, Outline Attached -Granulation Amt Medium (34-66%) -Granulation Quality Pale [place] -Necrosis Amt Medium (34-66%) -Necrotic Tissue Type Adherent Slough -Structure Exposed Fat Layer Exposed None/Limited to Skin Breakdown -Texture (Francia-wound Skin Appearance) Assessed Scarring -Moisture (Francia-wound Skin Appearance Assessed ) Dry/Scaly -Color (Francia-wound Skin Appearance) No Abnormality -Temperature (Francia-wound Skin No Abnormality Appearance) (Pt Warm) -Tenderness on Palpation (Francia-wound No Skin Appearance) -Ulcer Cleansing Rinsed/ Irrigated with Saline -Foul Odor after Cleansing No -Anesthetic Used 4% Lidocaine Solution #11- RT HEEL -Combined with other wound No -Current Size (cm) - Length 0.5 -Current Size (cm) - Width 0.8 -Current Size (cm) - Depth 0.2 -Total Square Cm 0.40 -Photo Taken No -Epithelialization None Present -Tunneling No -Undermining/Tunneling No -Circular Undermining No -Classification - Thickness Full Thickness without Exposed Support Structure -Exudate Amt Small (1-33%) -Exudate Type Serosanguineous -Wound Margin Distinct, Outline Attached -Granulation Amt Medium (34-66%) -Granulation Quality Pale [place] -Necrosis Amt Medium (34-66%) -Necrotic Tissue Type Adherent Slough -Structure Exposed Fat Layer Exposed None/Limited to Skin Breakdown -Texture (Francia-wound Skin Appearance) Assessed Scarring -Moisture (Francia-wound Skin Appearance Assessed ) Dry/Scaly -Color (Francia-wound Skin Appearance) No Abnormality Assessed -Temperature (Francia-wound Skin No Abnormality Appearance) (Pt Warm) -Tenderness on Palpation (Francia-wound No Skin Appearance) -Ulcer Cleansing Rinsed/ Irrigated with Saline -Foul Odor after Cleansing No -Anesthetic Used 4% Lidocaine Solution WC - Nurse 2 - General Ulcer CM Notes Start: 01/26/18 11:37 Freq: Status: Active Protocol: Activity Type Activity Date Activity User E-Sign Co-Sign Detail Recorded Client Recorded Date Recorded By Document 02/16/18 11:06 [id number] 02/16/18 11:13 02/16/18 11:06 Wound Center Nurse 2 [Procedure/Treatment] #12 R Post LE -Time 11:13 -Correct Patient Yes -Correct Side, Site, Position Yes -Correct Procedure Yes -Procedure Performed Yes -Type of Procedure Debridement -Clinical Debridement Subcutaneous -Post Debridement Size (cm) - Length 2.8 -Post Debridement Size (cm) - Width 0.6 -Post Debridement Size (cm) - Depth 0.2 -Total Square Cm 1.68 -Wound/Ulcer Outcome Not Healed -Ulcer Cleansing Not Cleansed -Foul Odor after Cleansing No -Bioengineered Tissue No -Bleeding Controlled with Pressure -Treatment Response Procedure Tolerated Well #11- RT HEEL -Time 11:09 -Correct Patient Yes -Correct Side, Site, Position Yes -Correct Procedure Yes -Procedure Performed Yes -Type of Procedure Debridement -Clinical Debridement Subcutaneous -Post Debridement Size (cm) - Length 0.6 -Post Debridement Size (cm) - Width 0.9 -Post Debridement Size (cm) - Depth 0.1 -Total Square Cm 0.54 -Wound/Ulcer Outcome Not Healed -Ulcer Cleansing Not Cleansed -Foul Odor after Cleansing No -Bioengineered Tissue No -Bleeding Controlled with Pressure -Treatment Response Procedure Tolerated Well [See Physician Procedure note for Specifics] Pain Scale: 0-10 Numeric [Pain] -Is Patient Pain Free? Yes Musculoskeletal: No Tenderness to Palpation of Joints or Extremities, Muscle Wasting Neurological: - - Patient is an incomplete quadriplegic with very slight sensation in some areas throughout the lower extremity Psych/Mental Status: Normal Affect, Appropriate Debridement Note Post-Debridement Measurements/Treatment WC - Nurse 2 - General Ulcer CM Notes Start: 01/26/18 11:37 Freq: Status: Active Protocol: Activity Type Activity Date Activity User E-Sign Co-Sign Detail Recorded Client Recorded Date Recorded By Document 01/26/18 11:55 JS [id number] 01/26/18 12:11 JS Document 02/02/18 11:37 CS [id number] 02/02/18 11:43 CS Document 02/09/18 12:32 DV [id number] 02/09/18 12:37 DV Document 02/16/18 11:06 CS [id number] 02/16/18 11:13 CS 01/26/18 02/02/18 02/09/18 11:55 11:37 12:32 Wound Center Nurse 2 #12 R Post LE -Time 11:55 11:38 12:34 -Correct Patient Yes Yes Yes -Correct Side, Site, Position Yes Yes Yes -Correct Procedure Yes Yes Yes -Procedure Performed Yes Yes Yes -Type of Procedure Debridement Debridement Debridement -Clinical Debridement Subcutaneous Subcutaneous Subcutaneous -Post Debridement Size (cm) - Length 2.8 2.7 3.0 -Post Debridement Size (cm) - Width 0.9 0.7 0.8 -Post Debridement Size (cm) - Depth 0.2 0.2 0.1 -Total Square Cm 2.52 1.89 2.40 -Wound/Ulcer Outcome Not Healed Not Healed Not Healed -Ulcer Cleansing Rinsed/ Not Cleansed Rinsed/ Irrigated with Irrigated with Saline Saline -Foul Odor after Cleansing No No No -Bioengineered Tissue No No -Type of bioengineered Tissue EPIFIX -Expiration Date 10/21/22 -Product Lot Number [id number] -Percent Used 75 -Saline Lot Number [id number] -Bleeding Controlled with NA Pressure Pressure -Treatment Response Procedure Procedure Procedure Tolerated Well Tolerated Well Tolerated Well #11- RT HEEL -Time 11:56 11:38 12:33 -Correct Patient Yes Yes Yes -Correct Side, Site, Position Yes Yes Yes -Correct Procedure Yes Yes Yes -Procedure Performed Yes Yes Yes -Type of Procedure Debridement Debridement Debridement -Clinical Debridement Subcutaneous Subcutaneous Subcutaneous -Post Debridement Size (cm) - Length 1.1 0.8 0.8 -Post Debridement Size (cm) - Width 1.0 1.1 1.2 -Post Debridement Size (cm) - Depth 0.1 0.1 0.1 -Total Square Cm 1.10 0.88 0.96 -Wound/Ulcer Outcome Not Healed Not Healed Not Healed -Ulcer Cleansing Rinsed/ Not Cleansed Rinsed/ Irrigated with Irrigated with Saline Saline -Foul Odor after Cleansing No No No -Bioengineered Tissue No No No -Type of bioengineered Tissue EPIFIX -Expiration Date 10/21/22 -Product Lot Number [id number] -Percent Used 25 -Saline Lot Number [id number] -Bleeding Controlled with NA Pressure Pressure -Treatment Response Procedure Procedure Procedure Tolerated Well Tolerated Well Tolerated Well Pain Scale: 0-10 Numeric Is Patient Pain Free? Yes Yes Yes 02/16/18 11:06 Wound Center Nurse 2 #12 R Post LE -Time 11:13 -Correct Patient Yes -Correct Side, Site, Position Yes -Correct Procedure Yes -Procedure Performed Yes -Type of Procedure Debridement -Clinical Debridement Subcutaneous -Post Debridement Size (cm) - Length 2.8 -Post Debridement Size (cm) - Width 0.6 -Post Debridement Size (cm) - Depth 0.2 -Total Square Cm 1.68 -Wound/Ulcer Outcome Not Healed -Ulcer Cleansing Not Cleansed -Foul Odor after Cleansing No -Bioengineered Tissue No -Type of bioengineered Tissue -Expiration Date -Product Lot Number -Percent Used -Saline Lot Number -Bleeding Controlled with Pressure -Treatment Response Procedure Tolerated Well #11- RT HEEL -Time 11:09 -Correct Patient Yes -Correct Side, Site, Position Yes -Correct Procedure Yes -Procedure Performed Yes -Type of Procedure Debridement -Clinical Debridement Subcutaneous -Post Debridement Size (cm) - Length 0.6 -Post Debridement Size (cm) - Width 0.9 -Post Debridement Size (cm) - Depth 0.1 -Total Square Cm 0.54 -Wound/Ulcer Outcome Not Healed -Ulcer Cleansing Not Cleansed -Foul Odor after Cleansing No -Bioengineered Tissue No -Type of bioengineered Tissue -Expiration Date -Product Lot Number -Percent Used -Saline Lot Number -Bleeding Controlled with Pressure -Treatment Response Procedure Tolerated Well Pain Scale: 0-10 Numeric Is Patient Pain Free? Yes Wound debrided: Right posterior heel Laterality: Right Type of Debridement: Excisional debridement Anesthesia Used: 4% Lidocaine Solution Depth: in the subcutaneous layer Percentage of wound debrided: 100 Instrument Used: #15 blade Tissue Removed: Adherent slough, fibrin, hyperkeratotic tissue Severity: Fat Layer Exposed Amount of bleeding with debridement: Mild Bleeding Controlled with: Pressure Patient tolerated procedure well - Additional Wound Wound debrided: Right posterior calf Laterality: Right Type of Debridement: Excisional debridement Anesthesia Used: 4% Lidocaine Solution Depth: in the subcutaneous layer Percentage of wound debrided: 100 Instrument Used: 3mm curette Tissue Removed: Adherent slough, fibrin, hyperkeratotic tissue Severity: Fat Layer Exposed Amount of bleeding with debridement: Mild Bleeding Controlled with: Pressure Patient tolerated procedure: Patient tolerated procedure well Assessment/Plan Assessment: Ulcer to posterior right heel. Plan: Patient was again examined and evaluated in detail today. The aforementioned ulcers were both subcutaneously debrided as noted in the clinical panel. The ulcers were then carefully cleansed, and the right posterior heel and calf ulcers were then dressed with chris to the ulcer bases, followed by an offloading dry sterile dressing. The dressing is to be changed in this manner daily by home health. He was instructed to keep these areas offloaded as much as possible in order to help heal the ulcer sites. Patient has an appointment with Vanessa next week to discuss his offloading bracing options. He is to continue to use his padded offloading boots with heel cut outs. He was instructed to continue with a diet high in protein to help optimize ulcer healing. He was educated on all signs and symptoms of local and systemic infection and was instructed to go to the ER immediately should he notice any. All questions were answered to the patient's satisfaction. Patient will follow-up in clinic in 1 week for further treatment and evaluation, or sooner if needed.
== END 2018-02-19 23:59 ==
LOC: WC 11:00
PROVIDERS: Visit Provider Podiatrist
DX: E11.622 Type 2 diabetes mellitus with other skin ulcer (principal); E11.42 Type 2 diabetes mellitus with diabetic polyneuropathy; E11.621 Type 2 diabetes mellitus with foot ulcer; G82.50 Quadriplegia, unspecified; L97.412 Non-pressure chronic ulcer of right heel and midfoot with fat layer exposed; L97.212 Non-pressure chronic ulcer of right calf with fat layer exposed
CPT/HCPCS: 11042; 15271; 15275; Q4131

== ENCOUNTER → 2018-02-23 12:25 | Outpatient (CLI) | payer MEDICARE, OTHER, SELFPAY ==
[2018-02-23 13:06] LABS: Anion Gap 7 (5-15); BUN 23 mg/dL (7-18); BUN/Creat Ratio 28.9 RATIO (10-20); Calcium,Total 8.8 mg/dL (8.5-10.1); Chloride 100 mmol/L (98-107); EST Glomerular Filtration Rate 103 mL/min (>60); Est Glom Filt Rate - Afr Amer 124 mL/min (>60); Glucose 188 mg/dL (74-106); Potassium 3.3 mmol/L (3.5-5.1); Sodium Level 138 mmol/L (136-145)
== END ==
PROVIDERS: Internal Medicine
DX: Z45.2 Encounter for adjustment and management of vascular access device (principal); N39.0 Urinary tract infection, site not specified; E11.622 Type 2 diabetes mellitus with other skin ulcer; E11.42 Type 2 diabetes mellitus with diabetic polyneuropathy; E11.621 Type 2 diabetes mellitus with foot ulcer; G82.50 Quadriplegia, unspecified; L97.212 Non-pressure chronic ulcer of right calf with fat layer exposed; L97.412 Non-pressure chronic ulcer of right heel and midfoot with fat layer exposed
CPT/HCPCS: 11042; 36591; 80048; A4216

== ENCOUNTER 2018-03-16 11:00 | Outpatient (RCR) | payer MEDICARE, OTHER, SELFPAY ==
[2018-02-20 00:41] VITALS: BP 92/60; PULSE 73; RESP 16; TEMP 35.9; BMI 26.6
[2018-02-23 10:58] VITALS: BP 97/48; PULSE 72; RESP 16; TEMP 36.1; BMI 26.6
--- NOTE | 2018-02-23 13:36 | PN.PCM_ITS ---
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 Status: Acute Current Visit: No Code(s): E11.621 - Type 2 diabetes mellitus with foot ulcer; L97.416 - Non-pressure chronic ulcer of right heel and midfoot with bone involvement without evidence of necrosis (4) Chronic incomplete quadriplegia Status: Acute Current Visit: No Code(s): G82.50 - Quadriplegia, unspecified (5) Malnutrition Status: Acute Current Visit: No Code(s): E46 - Unspecified protein-calorie malnutrition (6) Delayed wound healing Status: Acute Current Visit: No Code(s): T14.8XXD - Other injury of unspecified body region, subsequent encounter Type of Wound Chief Complaint: Ulcer on right heel History of Wound: This is a 67-year-old white male who presents to the wound care center today for evaluation of a right heel ulcer. He has a past medical history as described above. The patient states that on the night of 06/06/2017, his heel protectors came off all night in bed and shortly after he noted an ulceration on his right heel and a purplish discoloration on his left heel. He states that there has been yellow drainage coming from his right heel and that yesterday he started using Granulex and Aquacel silver on the right heel. He denies any pain or foul-smelling discharge, however he does state that he has decreased sensation to his lower extremities due to his history of a spinal cord injury in high school. He currently has a suprapubic catheter as well due to his history of recurrent UTIs and obstructive uropathy. He also notes that his low air loss hospital bed is needing to be repaired so he is unable to use this at this time. The patient does state that he has a history of ulcerations on his right heel in the past where he had to be seen at a wound care center and ended up needing to have skin substitutes applied. He does note that he lives home alone and that he receives home health throughout the week. Patient was then referred to Dr. Gan at his office, who subsequently admitted the patient on Jul 04, for IV antibiotics and evaluation by ID. Infectious disease planned to d/c patient home on doxy 100mg bid, amoxicillin 500mg tid, and flagyl 500mg tid for planned 6 week course. He has since discharge been receiving daily dressing changes consisting of aquacel ag and a dry sterile dressing as well as wearing his PRAFO boots at all times. He otherwise denies any signs of systemic infection and denies any fever, chills, nausea, vomiting, chest pain or pressure, syncope or presyncopal episodes. Progress of Wound: Patient returns to wound healing center this week for continued treatment of right heel ulcer and right posterior calf ulcer. Patient continues to wear offloading padded boots with heel cut outs over the last week. Patient had daily chris dressing changes. Patient says he has an appointment withLulu pagan this afternoon to discuss offloading bracing options. He denies any purulence to the area. Ulcer sites remain stable. He denies any feeling of nausea, vomiting, fever, or chills currently. - Physical Exam Vital Signs Temp Pulse Resp BP 96.9 F L 72 16 97/48 L 02/23/18 10:58 02/23/18 10:58 02/23/18 10:58 02/23/18 10:58 General: Alert, Oriented x3, Cooperative, No apparent distress Extremities: Capillary Refill Less than 3 Seconds, No Calf Tenderness - Negative Sarah Beth and Pretty sign, Diminished Peripheral Pulses Skin: Ulcer/ Wound - Ulcer to right posterior heel with fat layer exposed. Measurements are noted below. Area remains stable compared with last week. Base continues to be a mixture of adherent slough, fibrin, granular tissue as well as some slight surrounding hyperkeratotic tissue. The ulcer base remains close to the calcaneus. There continues to be no malodor, no purulence, no extending or surrounding cellulitis, no increase in warmth. Ulcer to right posterior calf. Measurements noted below. Improvement noted to the site again this week. The base continues to be a mixture of adherent slough, fibrin, hyperkeratotic tissue, as well as some granular tissue to the base. There continues to be no probing to bone, no tracking, no undermining, no purulence, no malodor, no extending cellulitis, and no increase in warmth. Wound Measurements and Assessment WC - Nurse 1 - General Ulcer Measurement Start: 02/23/18 10:58 Freq: Status: Active Protocol: Activity Type Activity Date Activity User E-Sign Co-Sign Detail Recorded Client Recorded Date Recorded By Document 02/23/18 10:58 [id number] 02/23/18 11:01 02/23/18 10:58 Wound Center Nurse 1 [Ulcer Assessment] #12 R Post LE -Combined with other wound No -Current Size (cm) - Length 2.4 -Current Size (cm) - Width 0.6 -Current Size (cm) - Depth 0.3 -Total Square Cm 1.44 -Date of Last Picture (Recall this 02/23/18 field) -Photo Taken Yes -Epithelialization None Present -Tunneling No -Undermining/Tunneling No -Circular Undermining No -Exudate Amt Large (67-100%) -Exudate Type Yellow/Green -Wound Margin Distinct, Outline Attached -Granulation Amt Small (1-33%) -Granulation Quality Pale [place] -Slough/Fibrin Yes -Necrotic Tissue Type Adherent Slough -Structure Exposed None/Limited to Skin Breakdown -Texture (Francia-wound Skin Appearance) No Abnormality Assessed -Moisture (Francia-wound Skin Appearance No Abnormality ) Assessed -Color (Francia-wound Skin Appearance) No Abnormality Assessed -Temperature (Francia-wound Skin No Abnormality Appearance) (Pt Warm) -Tenderness on Palpation (Francia-wound No Skin Appearance) -Ulcer Cleansing Rinsed/ Irrigated with Saline -Foul Odor after Cleansing No -Anesthetic Used 4% Lidocaine Solution #11- RT HEEL -Combined with other wound No -Current Size (cm) - Length 0.3 -Current Size (cm) - Width 0.8 -Current Size (cm) - Depth 0.2 -Total Square Cm 0.24 -Date of Last Picture (Recall this 02/23/18 field) -Photo Taken No -Epithelialization Small 1-33% -Tunneling No -Undermining/Tunneling No -Circular Undermining No -Exudate Amt Small (1-33%) -Exudate Type Serous -Granulation Amt Small (1-33%) -Granulation Quality Red -Slough/Fibrin Yes -Necrosis Amt None Present (0 %) -Necrotic Tissue Type Eschar -Structure Exposed None/Limited to Skin Breakdown -Texture (Francia-wound Skin Appearance) Assessed Callus -Moisture (Francia-wound Skin Appearance Assessed ) Dry/Scaly -Color (Francia-wound Skin Appearance) No Abnormality Assessed -Temperature (Francia-wound Skin No Abnormality Appearance) (Pt Warm) -Tenderness on Palpation (Francia-wound No Skin Appearance) -Ulcer Cleansing Rinsed/ Irrigated with Saline -Foul Odor after Cleansing No -Anesthetic Used 4% Lidocaine Solution [Edema Assessment] -Lower Limb Edema Present NA WC - Nurse 2 - General Ulcer CM Notes Start: 02/23/18 10:58 Freq: Status: Active Protocol: Activity Type Activity Date Activity User E-Sign Co-Sign Detail Recorded Client Recorded Date Recorded By Document 02/23/18 11:42 DV [id number] 02/23/18 11:46 DV 02/23/18 11:42 Wound Center Nurse 2 [Procedure/Treatment] #12 R Post LE -Time 11:42 -Correct Patient Yes -Correct Side, Site, Position Yes -Correct Procedure Yes -Procedure Performed Yes -Type of Procedure Debridement -Clinical Debridement Subcutaneous -Post Debridement Size (cm) - Length 2.5 -Post Debridement Size (cm) - Width 1.0 -Post Debridement Size (cm) - Depth 0.2 -Total Square Cm 2.50 -Wound/Ulcer Outcome Not Healed -Ulcer Cleansing Rinsed/ Irrigated with Saline -Foul Odor after Cleansing No -Bioengineered Tissue No -Bleeding Controlled with Pressure -Treatment Response Procedure Tolerated Well #11- RT HEEL -Time 11:45 -Correct Patient Yes -Correct Side, Site, Position Yes -Correct Procedure Yes -Procedure Performed Yes -Type of Procedure Debridement -Clinical Debridement Subcutaneous -Post Debridement Size (cm) - Length 0.6 -Post Debridement Size (cm) - Width 1.0 -Post Debridement Size (cm) - Depth 0.1 -Total Square Cm 0.60 -Wound/Ulcer Outcome Not Healed -Ulcer Cleansing Rinsed/ Irrigated with Saline -Foul Odor after Cleansing No -Bioengineered Tissue No -Bleeding Controlled with Pressure -Treatment Response Procedure Tolerated Well [See Physician Procedure note for Specifics] Pain Scale: 0-10 Numeric [Pain] -Is Patient Pain Free? Yes Musculoskeletal: No Tenderness to Palpation of Joints or Extremities, Muscle Wasting Neurological: - - Patient is an incomplete quadriplegic with very slight sensation in some areas throughout the lower extremity Psych/Mental Status: Normal Affect, Appropriate Debridement Note Post-Debridement Measurements/Treatment WC - Nurse 2 - General Ulcer CM Notes Start: 02/23/18 10:58 Freq: Status: Active Protocol: Activity Type Activity Date Activity User E-Sign Co-Sign Detail Recorded Client Recorded Date Recorded By Document 02/23/18 11:42 DV [id number] 02/23/18 11:46 DV 02/23/18 11:42 Wound Center Nurse 2 #12 R Post LE -Time 11:42 -Correct Patient Yes -Correct Side, Site, Position Yes -Correct Procedure Yes -Procedure Performed Yes -Type of Procedure Debridement -Clinical Debridement Subcutaneous -Post Debridement Size (cm) - Length 2.5 -Post Debridement Size (cm) - Width 1.0 -Post Debridement Size (cm) - Depth 0.2 -Total Square Cm 2.50 -Wound/Ulcer Outcome Not Healed -Ulcer Cleansing Rinsed/ Irrigated with Saline -Foul Odor after Cleansing No -Bioengineered Tissue No -Bleeding Controlled with Pressure -Treatment Response Procedure Tolerated Well #11- RT HEEL -Time 11:45 -Correct Patient Yes -Correct Side, Site, Position Yes -Correct Procedure Yes -Procedure Performed Yes -Type of Procedure Debridement -Clinical Debridement Subcutaneous -Post Debridement Size (cm) - Length 0.6 -Post Debridement Size (cm) - Width 1.0 -Post Debridement Size (cm) - Depth 0.1 -Total Square Cm 0.60 -Wound/Ulcer Outcome Not Healed -Ulcer Cleansing Rinsed/ Irrigated with Saline -Foul Odor after Cleansing No -Bioengineered Tissue No -Bleeding Controlled with Pressure -Treatment Response Procedure Tolerated Well Pain Scale: 0-10 Numeric Is Patient Pain Free? Yes Wound debrided: Right posterior heel Laterality: Right Type of Debridement: Excisional debridement Anesthesia Used: 4% Lidocaine Solution Depth: in the subcutaneous layer Percentage of wound debrided: 100 Instrument Used: #15 blade Tissue Removed: Adherent slough, fibrin, hyperkeratotic tissue Severity: Fat Layer Exposed Amount of bleeding with debridement: Mild Bleeding Controlled with: Pressure Patient tolerated procedure well - Additional Wound Wound debrided: Right posterior calf Laterality: Right Type of Debridement: Excisional debridement Anesthesia Used: 4% Lidocaine Solution Depth: in the subcutaneous layer Percentage of wound debrided: 100 Instrument Used: 3mm curette Tissue Removed: Adherent slough, fibrin, hyperkeratotic tissue Severity: Fat Layer Exposed Amount of bleeding with debridement: Mild Bleeding Controlled with: Pressure Patient tolerated procedure: Patient tolerated procedure well Assessment/Plan Assessment: Ulcer to posterior right heel. Plan: Patient was again examined and evaluated in detail today. The aforementioned ulcers were both subcutaneously debrided as noted in the clinical panel. The ulcers were then carefully cleansed, and the right posterior heel and calf ulcers were then dressed with chris to the ulcer bases, followed by an offloading dry sterile dressing. The dressing is to be changed in this manner daily by home health. He was instructed to keep these areas offloaded as much as possible in order to help heal the ulcer sites. Patient has an appointment with Vanessa this afternoon to discuss his offloading bracing options. He is to continue to use his padded offloading boots with heel cut outs. He was i nstructed to continue with a diet high in protein to help optimize ulcer healing. He was educated on all signs and symptoms of local and systemic infection and was instructed to go to the ER immediately should he notice any. All questions were answered to the patient's satisfaction. Patient will follow- up in clinic in 1 week for further treatment and evaluation, or sooner if needed.
[2018-03-02 11:03] VITALS: BP 113/71; PULSE 73; RESP 16; TEMP 36.8; BMI 26.6
--- NOTE | 2018-03-02 13:32 | PN.PCM_ITS ---
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 Status: Acute Current Visit: No Code(s): E11.621 - Type 2 diabetes mellitus with foot ulcer; L97.416 - Non-pressure chronic ulcer of right heel and midfoot with bone involvement without evidence of necrosis (4) Chronic incomplete quadriplegia Status: Acute Current Visit: No Code(s): G82.50 - Quadriplegia, unspecified (5) Malnutrition Status: Acute Current Visit: No Code(s): E46 - Unspecified protein-calorie malnutrition (6) Delayed wound healing Status: Acute Current Visit: No Code(s): T14.8XXD - Other injury of unspecified body region, subsequent encounter Type of Wound Chief Complaint: Ulcer on right heel History of Wound: This is a 67-year-old white male who presents to the wound care center today for evaluation of a right heel ulcer. He has a past medical history as described above. The patient states that on the night of 06/06/2017, his heel protectors came off all night in bed and shortly after he noted an ulceration on his right heel and a purplish discoloration on his left heel. He states that there has been yellow drainage coming from his right heel and that yesterday he started using Granulex and Aquacel silver on the right heel. He denies any pain or foul-smelling discharge, however he does state that he has decreased sensation to his lower extremities due to his history of a spinal cord injury in high school. He currently has a suprapubic catheter as well due to his history of recurrent UTIs and obstructive uropathy. He also notes that his low air loss hospital bed is needing to be repaired so he is unable to use this at this time. The patient does state that he has a history of ulcerations on his right heel in the past where he had to be seen at a wound care center and ended up needing to have skin substitutes applied. He does note that he lives home alone and that he receives home health throughout the week. Patient was then referred to Dr. Gan at his office, who subsequently admitted the patient on Jul 04, for IV antibiotics and evaluation by ID. Infectious disease planned to d/c patient home on doxy 100mg bid, amoxicillin 500mg tid, and flagyl 500mg tid for planned 6 week course. He has since discharge been receiving daily dressing changes consisting of aquacel ag and a dry sterile dressing as well as wearing his PRAFO boots at all times. He otherwise denies any signs of systemic infection and denies any fever, chills, nausea, vomiting, chest pain or pressure, syncope or presyncopal episodes. Progress of Wound: Patient returns to wound healing center this week for continued treatment of right heel ulcer and right posterior calf ulcer. Patient continues to wear offloading padded boots with heel cut outs over the last week. Patient had daily chris dressing changes. Patient says he has an appointment withLulu pagan last week and is picking up his braces again after his visit today that should have better padding and offloading for his ulcer sites. He denies any purulence to the area. Ulcer sites remain stable. He denies any feeling of nausea, vomiting, fever, or chills currently. - Physical Exam Vital Signs Temp Pulse Resp BP 98.2 F 73 16 113/71 03/02/18 11:03 03/02/18 11:03 03/02/18 11:03 03/02/18 11:03 General: Alert, Oriented x3, Cooperative, No apparent distress Extremities: Capillary Refill Less than 3 Seconds, No Calf Tenderness, Diminished Peripheral Pulses - Negative Sarah Beth and Pretty sign Skin: Ulcer/ Wound - Ulcer to right posterior heel with fat layer exposed. Measurements noted below. Area slightly increased in size since last week. Bas e continues to be a mixture of adherent slough, fibrin, granular tissue as well as some surrounding hyperkeratotic tissue. Ulcer site close to calcaneus. There continues to be no malodor, no purulence, no extending or surrounding cellulitis, no increase in warmth to the heel. Ulcer to the right posterior calf also appreciated today with measurements noted below. Slight improvement appreciated again to this site. The base continues to be a mixture of adherent slough, fibrin, hyperkeratotic tissue, as well as some granular tissue. There continues to be no probing to bone, no tracking, no undermining, no purulence, no malodor, no extending cellulitis, no increase in warmth. Wound Measurements and Assessment WC - Nurse 1 - General Ulcer Measurement Start: 02/23/18 10:58 Freq: Status: Active Protocol: Activity Type Activity Date Activity User E-Sign Co-Sign Detail Recorded Client Recorded Date Recorded By Document 03/02/18 11:03 [id number] 03/02/18 11:06 03/02/18 11:03 Wound Center Nurse 1 [Ulcer Assessment] #12 R Post LE -Combined with other wound No -Current Size (cm) - Length 2.5 -Current Size (cm) - Width 0.7 -Current Size (cm) - Depth 0.3 -Total Square Cm 1.75 -Photo Taken No -Epithelialization Small 1-33% -Tunneling No -Undermining/Tunneling No -Circular Undermining No -Classification - Thickness Full Thickness without Exposed Support Structure -Exudate Amt Small (1-33%) -Exudate Type Serosanguineous -Wound Margin Distinct, Outline Attached -Granulation Amt Large (67-100%) -Granulation Quality Red -Slough/Fibrin Yes -Necrosis Amt Small (1-33%) -Necrotic Tissue Type Adherent Slough -Structure Exposed Fascia Fat Layer Exposed -Texture (Francia-wound Skin Appearance) No Abnormality Assessed -Moisture (Francia-wound Skin Appearance No Abnormality ) Assessed -Color (Francia-wound Skin Appearance) Assessed Erythema -Temperature (Francia-wound Skin No Abnormality Appearance) (Pt Warm) -Tenderness on Palpation (Francia-wound No Skin Appearance) -Ulcer Cleansing Rinsed/ Irrigated with Saline -Foul Odor after Cleansing No -Anesthetic Used 4% Lidocaine Solution #11- RT HEEL -Combined with other wound No -Current Size (cm) - Length 0.1 -Current Size (cm) - Width 0.1 -Current Size (cm) - Depth 0.1 -Total Square Cm 0.01 -Photo Taken No -Epithelialization Large 67-100% -Tunneling No -Undermining/Tunneling No -Circular Undermining No -Classification - Thickness Full Thickness without Exposed Support Structure -Exudate Amt None Present (0 %) -Wound Margin Distinct, Outline Attached -Granulation Amt Large (67-100%) -Granulation Quality [place] -Slough/Fibrin No -Necrosis Amt None Present (0 %) -Structure Exposed None/Limited to Skin Breakdown -Texture (Francia-wound Skin Appearance) Assessed Callus Friable Scarring -Moisture (Francia-wound Skin Appearance Assessed ) Dry/Scaly -Color (Francia-wound Skin Appearance) Assessed Ecchymosis -Temperature (Francia-wound Skin No Abnormality Appearance) (Pt Warm) -Tenderness on Palpation (Francia-wound No Skin Appearance) -Ulcer Cleansing Rinsed/ Irrigated with Saline -Foul Odor after Cleansing No -Anesthetic Used 4% Lidocaine Solution WC - Nurse 2 - General Ulcer CM Notes Start: 02/23/18 10:58 Freq: Status: Active Protocol: Activity Type Activity Date Activity User E-Sign Co-Sign Detail Recorded Client Recorded Date Recorded By Document 03/02/18 11:52 DV [id number] 03/02/18 11:55 DV 03/02/18 11:52 Wound Center Nurse 2 [Procedure/Treatment] #12 R Post LE -Time 11:53 -Correct Patient Yes -Correct Side, Site, Position Yes -Correct Procedure Yes -Procedure Performed Yes -Type of Procedure Debridement -Clinical Debridement Subcutaneous -Post Debridement Size (cm) - Length 2.1 -Post Debridement Size (cm) - Width 0.5 -Post Debridement Size (cm) - Depth 0.1 -Total Square Cm 1.05 -Wound/Ulcer Outcome Not Healed -Ulcer Cleansing Rinsed/ Irrigated with Saline -Foul Odor after Cleansing No -Bioengineered Tissue No -Bleeding Controlled with Pressure -Treatment Response Procedure Tolerated Well #11- RT HEEL -Time 11:54 -Correct Patient Yes -Correct Side, Site, Position Yes -Correct Procedure Yes -Procedure Performed Yes -Type of Procedure Debridement -Clinical Debridement Subcutaneous -Post Debridement Size (cm) - Length 0.8 -Post Debridement Size (cm) - Width 1.1 -Post Debridement Size (cm) - Depth 0.2 -Total Square Cm 0.88 -Wound/Ulcer Outcome Not Healed -Ulcer Cleansing Rinsed/ Irrigated with Saline -Foul Odor after Cleansing No -Bioengineered Tissue No -Bleeding Controlled with Pressure -Treatment Response Procedure Tolerated Well [See Physician Procedure note for Specifics] Pain Scale: 0-10 Numeric [Pain] -Is Patient Pain Free? Yes Musculoskeletal: No Tenderness to Palpation of Joints or Extremities, Muscle Wasting Neurological: - - Patient is an incomplete quadriplegic with very slight sensation in some areas throughout the lower extremity Psych/Mental Status: Normal Affect, Appropriate Debridement Note Post-Debridement Measurements/Treatment WC - Nurse 2 - General Ulcer CM Notes Start: 02/23/18 10:58 Freq: Status: Active Protocol: Activity Type Activity Date Activity User E-Sign Co-Sign Detail Recorded Client Recorded Date Recorded By Document 02/23/18 11:42 DV [id number] 02/23/18 11:46 DV Document 03/02/18 11:52 DV [id number] 03/02/18 11:55 DV 02/23/18 03/02/18 11:42 11:52 Wound Center Nurse 2 #12 R Post LE -Time 11:42 11:53 -Correct Patient Yes Yes -Correct Side, Site, Position Yes Yes -Correct Procedure Yes Yes -Procedure Performed Yes Yes -Type of Procedure Debridement Debridement -Clinical Debridement Subcutaneous Subcutaneous -Post Debridement Size (cm) - Length 2.5 2.1 -Post Debridement Size (cm) - Width 1.0 0.5 -Post Debridement Size (cm) - Depth 0.2 0.1 -Total Square Cm 2.50 1.05 -Wound/Ulcer Outcome Not Healed Not Healed -Ulcer Cleansing Rinsed/ Rinsed/ Irrigated with Irrigated with Saline Saline -Foul Odor after Cleansing No No -Bioengineered Tissue No No -Bleeding Controlled with Pressure Pressure -Treatment Response Procedure Procedure Tolerated Well Tolerated Well #11- RT HEEL -Time 11:45 11:54 -Correct Patient Yes Yes -Correct Side, Site, Position Yes Yes -Correct Procedure Yes Yes -Procedure Performed Yes Yes -Type of Procedure Debridement Debridement -Clinical Debridement Subcutaneous Subcutaneous -Post Debridement Size (cm) - Length 0.6 0.8 -Post Debridement Size (cm) - Width 1.0 1.1 -Post Debridement Size (cm) - Depth 0.1 0.2 -Total Square Cm 0.60 0.88 -Wound/Ulcer Outcome Not Healed Not Healed -Ulcer Cleansing Rinsed/ Rinsed/ Irrigated with Irrigated with Saline Saline -Foul Odor after Cleansing No No -Bioengineered Tissue No No -Bleeding Controlled with Pressure Pressure -Treatment Response Procedure Procedure Tolerated Well Tolerated Well Pain Scale: 0-10 Numeric Is Patient Pain Free? Yes Yes Wound debrided: Right posterior heel Laterality: Right Type of Debridement: Excisional debridement Anesthesia Used: 4% Lidocaine Solution Depth: in the subcutaneous layer Percentage of wound debrided: 100 Instrument Used: #15 blade, - - Tissue nipper Tissue Removed: Adherent slough, fibrin, hyperkeratotic tissue Severity: Fat Layer Exposed Amount of bleeding with debridement: Mild Bleeding Controlled with: Pressure Patient tolerated procedure well - Additional Wound Wound debrided: Right posterior calf Laterality: Right Type of Debridement: Excisional debridement Anesthesia Used: 4% Lidocaine Solution Depth: in the subcutaneous layer Percentage of wound debrided: 100 Instrument Used: 7mm curette Tissue Removed: Adherent slough, fibrin, hyperkeratotic tissue Severity: Fat Layer Exposed Amount of bleeding with debridement: Mild Bleeding Controlled with: Pressure Patient tolerated procedure: Patient tolerated procedure well Assessment/Plan Assessment: Ulcer to posterior right heel. Plan: Patient was again examined and evaluated in detail today. The aforementioned ulcers were both subcutaneously debrided as noted in the clinical panel. The ulcers were then carefully cleansed, and the right posterior heel and calf ulcers were then dressed with chris to the ulcer bases, followed by an offloading dry sterile dressing. The dressing is to be changed in this manner daily by home health. He was instructed to keep these areas offloaded as much as possible in order to help heal the ulcer sites. Patient has an appointment with Vanessa this afternoon machine operator picker his offloading PRAFO boots that have been modified to provide better padding and offloading. He is to continue to use his padded offloading boots with heel cut outs. He was instructed to continue with a diet high in protein to help optimize ulcer healing. He was educated on all signs and symptoms of local and systemic infection and was instructed to go to the ER immediately should he notice any. All questions were answered to the patient's satisfaction. Patient will follow-up in clinic in 1 week for further treatment and evaluation, or sooner if needed.
[2018-03-09 11:09] VITALS: BP 140/83; PULSE 70; RESP 16; TEMP 36.8; BMI 26.6
--- NOTE | 2018-03-09 13:13 | PCM.WC.PN ---
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 Status: Acute Current Visit: No Code(s): E11.621 - Type 2 diabetes mellitus with foot ulcer; L97.416 - Non-pressure chronic ulcer of right heel and midfoot with bone involvement without evidence of necrosis (4) Chronic incomplete quadriplegia Status: Acute Current Visit: No Code(s): G82.50 - Quadriplegia, unspecified (5) Malnutrition Status: Acute Current Visit: No Code(s): E46 - Unspecified protein-calorie malnutrition (6) Delayed wound healing Status: Acute Current Visit: No Code(s): T14.8XXD - Other injury of unspecified body region, subsequent encounter Type of Wound Chief Complaint: Ulcer on right heel History of Wound: This is a 67-year-old white male who presents to the wound care center today for evaluation of a right heel ulcer. He has a past medical history as described above. The patient states that on the night of 06/06/2017, his heel protectors came off all night in bed and shortly after he noted an ulceration on his right heel and a purplish discoloration on his left heel. He states that there has been yellow drainage coming from his right heel and that yesterday he started using Granulex and Aquacel silver on the right heel. He denies any pain or foul-smelling discharge, however he does state that he has decreased sensation to his lower extremities due to his history of a spinal cord injury in high school. He currently has a suprapubic catheter as well due to his history of recurrent UTIs and obstructive uropathy. He also notes that his low air loss hospital bed is needing to be repaired so he is unable to use this at this time. The patient does state that he has a history of ulcerations on his right heel in the past where he had to be seen at a wound care center and ended up needing to have skin substitutes applied. He does note that he lives home alone and that he receives home health throughout the week. Patient was then referred to Dr. Gan at his office, who subsequently admitted the patient on Jul 04, for IV antibiotics and evaluation by ID. Infectious disease planned to d/c patient home on doxy 100mg bid, amoxicillin 500mg tid, and flagyl 500mg tid for planned 6 week course. He has since discharge been receiving daily dressing changes consisting of aquacel ag and a dry sterile dressing as well as wearing his PRAFO boots at all times. He otherwise denies any signs of systemic infection and denies any fever, chills, nausea, vomiting, chest pain or pressure, syncope or presyncopal episodes. Progress of Wound: Patient returns to wound healing center this week for continued treatment of right heel ulcer and right posterior calf ulcer. Patient continues to wear offloading padded boots with heel cut outs over the last week. Patient had daily chris dressing changes. Patient is in the process of working with [employer] to get new custom offloading braces. He denies any purulence to the area. Ulcer sites remain stable. He denies any feeling of nausea, vomiting, fever, or chills currently. - Physical Exam Vital Signs Temp Pulse Resp BP 98.2 F 70 16 140/83 H 03/09/18 11:09 03/09/18 11:09 03/09/18 11:09 03/09/18 11:09 General: Alert, Oriented x3, Cooperative, No apparent distress Extremities: Capillary Refill Less than 3 Seconds, No Calf Tenderness - Negative Sarah Beth and Pretty sign, Diminished Peripheral Pulses Skin: Ulcer/ Wound - Ulcer to right posterior heel with fat layer exposed. Measurements are noted below. Ulcer to this area remains stable since last week. Base continues to be a mixture of adherent slough, fibrin, granular tissue as well as some surrounding hyperkeratotic tissue. Ulcer remains close to the calcaneus. There continues to be no malodor, no purulence, no extending cellulitis, no increase in warmth. Ulcer to the right posterior calf is also appreciated today with measurements noted below. Another slight improvement is appreciated again to this area. The base continues to be a mixture of adherent slough, fibrin, hyperkeratotic tissue, as well as some granular tissue. There is no probing to bone, no tracking, no undermining, no purulence, no malodor, no extending cellulitis, and no increase in warmth. Wound Measurements and Assessment WC - Nurse 1 - General Ulcer Measurement Start: 02/23/18 10:58 Freq: Status: Active Protocol: Activity Type Activity Date Activity User E-Sign Co-Sign Detail Recorded Client Recorded Date Recorded By Document 03/09/18 11:09 [facility] [id number] 03/09/18 11:26 [facility] 03/09/18 11:09 Wound Center Nurse 1 [Ulcer Assessment] #12 R Post LE -Combined with other wound No -Current Size (cm) - Length 2.4 -Current Size (cm) - Width 0.5 -Current Size (cm) - Depth 0.3 -Total Square Cm 1.20 -Photo Taken No -Epithelialization Small 1-33% -Tunneling No -Undermining/Tunneling No -Circular Undermining No -Exudate Amt Small (1-33%) -Exudate Type Serosanguineous -Wound Margin Distinct, Outline Attached -Granulation Amt Medium (34-66%) -Granulation Quality [place] -Slough/Fibrin Yes -Necrosis Amt Medium (34-66%) -Necrotic Tissue Type Adherent Slough -Texture (Francia-wound Skin Appearance) Scarring -Moisture (Francia-wound Skin Appearance Dry/Scaly ) -Color (Francia-wound Skin Appearance) Assessed -Temperature (Francia-wound Skin No Abnormality Appearance) (Pt Warm) -Tenderness on Palpation (Francia-wound No Skin Appearance) -Ulcer Cleansing Rinsed/ Irrigated with Saline -Foul Odor after Cleansing No -Anesthetic Used 4% Lidocaine Solution #11- RT HEEL -Combined with other wound No -Current Size (cm) - Length 0.3 -Current Size (cm) - Width 0.5 -Current Size (cm) - Depth 0.2 -Total Square Cm 0.15 -Photo Taken No -Epithelialization None Present -Tunneling No -Undermining/Tunneling Yes -Undermining/Tunneling Starts (O' 12 clock) -Undermining/Tunneling Ends (O'clock) 12 -Maximum Distance (cm) 0.5 -Circular Undermining Yes -Exudate Amt Small (1-33%) -Exudate Type Serosanguineous -Wound Margin Distinct, Outline Attached -Granulation Amt Medium (34-66%) -Granulation Quality Red -Slough/Fibrin Yes -Necrosis Amt Small (1-33%) -Necrotic Tissue Type Adherent Slough -Texture (Francia-wound Skin Appearance) Callus -Moisture (Francia-wound Skin Appearance Dry/Scaly ) -Color (Francia-wound Skin Appearance) Assessed -Temperature (Franica-wound Skin No Abnormality Appearance) (Pt Warm) -Tenderness on Palpation (Francia-wound No Skin Appearance) -Ulcer Cleansing Rinsed/ Irrigated with Saline -Foul Odor after Cleansing No -Anesthetic Used 4% Lidocaine Solution WC - Nurse 2 - General Ulcer CM Notes Start: 02/23/18 10:58 Freq: Status: Active Protocol: Activity Type Activity Date Activity User E-Sign Co-Sign Detail Recorded Client Recorded Date Recorded By Document 03/09/18 12:29 DV [id number] 03/09/18 12:33 DV 03/09/18 12:29 Wound Center Nurse 2 [Procedure/Treatment] #12 R Post LE -Time 12:30 -Correct Patient Yes -Correct Side, Site, Position Yes -Correct Procedure Yes -Procedure Performed Yes -Type of Procedure Debridement -Clinical Debridement Subcutaneous -Post Debridement Size (cm) - Length 2.4 -Post Debridement Size (cm) - Width 0.4 -Post Debridement Size (cm) - Depth 0.2 -Total Square Cm 0.96 -Wound/Ulcer Outcome Not Healed -Ulcer Cleansing Rinsed/ Irrigated with Saline -Foul Odor after Cleansing No -Bioengineered Tissue No -Bleeding Controlled with Pressure -Treatment Response Procedure Tolerated Well #11- RT HEEL -Time 12:30 -Correct Patient Yes -Correct Side, Site, Position Yes -Correct Procedure Yes -Procedure Performed Yes -Type of Procedure Debridement -Clinical Debridement Subcutaneous -Post Debridement Size (cm) - Length 0.8 -Post Debridement Size (cm) - Width 0.8 -Post Debridement Size (cm) - Depth 0.2 -Total Square Cm 0.64 -Wound/Ulcer Outcome Not Healed -Ulcer Cleansing Rinsed/ Irrigated with Saline -Foul Odor after Cleansing No -Bioengineered Tissue No -Bleeding Controlled with Pressure -Treatment Response Procedure Tolerated Well [See Physician Procedure note for Specifics] Pain Scale: 0-10 Numeric [Pain] -Is Patient Pain Free? Yes Musculoskeletal: No Tenderness to Palpation of Joints or Extremities, Muscle Wasting Neurological: - - Patient is an incomplete quadriplegic with very slight sensation in some areas throughout the lower extremity Psych/Mental Status: Normal Affect, Appropriate Debridement Note Post-Debridement Measurements/Treatment WC - Nurse 2 - General Ulcer CM Notes Start: 02/23/18 10:58 Freq: Status: Active Protocol: Activity Type Activity Date Activity User E-Sign Co-Sign Detail Recorded Client Recorded Date Recorded By Document 02/23/18 11:42 DV [id number] 02/23/18 11:46 DV Document 03/02/18 11:52 DV [id number] 03/02/18 11:55 DV Document 03/09/18 12:29 DV [id number] 03/09/18 12:33 DV 02/23/18 03/02/18 03/09/18 11:42 11:52 12:29 Wound Center Nurse 2 #12 R Post LE -Time 11:42 11:53 12:30 -Correct Patient Yes Yes Yes -Correct Side, Site, Position Yes Yes Yes -Correct Procedure Yes Yes Yes -Procedure Performed Yes Yes Yes -Type of Procedure Debridement Debridement Debridement -Clinical Debridement Subcutaneous Subcutaneous Subcutaneous -Post Debridement Size (cm) - Length 2.5 2.1 2.4 -Post Debridement Size (cm) - Width 1.0 0.5 0.4 -Post Debridement Size (cm) - Depth 0.2 0.1 0.2 -Total Square Cm 2.50 1.05 0.96 -Wound/Ulcer Outcome Not Healed Not Healed Not Healed -Ulcer Cleansing Rinsed/ Rinsed/ Rinsed/ Irrigated with Irrigated with Irrigated with Saline Saline Saline -Foul Odor after Cleansing No No No -Bioengineered Tissue No No No -Bleeding Controlled with Pressure Pressure Pressure -Treatment Response Procedure Procedure Procedure Tolerated Well Tolerated Well Tolerated Well #11- RT HEEL -Time 11:45 11:54 12:30 -Correct Patient Yes Yes Yes -Correct Side, Site, Position Yes Yes Yes -Correct Procedure Yes Yes Yes -Procedure Performed Yes Yes Yes -Type of Procedure Debridement Debridement Debridement -Clinical Debridement Subcutaneous Subcutaneous Subcutaneous -Post Debridement Size (cm) - Length 0.6 0.8 0.8 -Post Debridement Size (cm) - Width 1.0 1.1 0.8 -Post Debridement Size (cm) - Depth 0.1 0.2 0.2 -Total Square Cm 0.60 0.88 0.64 -Wound/Ulcer Outcome Not Healed Not Healed Not Healed -Ulcer Cleansing Rinsed/ Rinsed/ Rinsed/ Irrigated with Irrigated with Irrigated with Saline Saline Saline -Foul Odor after Cleansing No No No -Bioengineered Tissue No No No -Bleeding Controlled with Pressure Pressure Pressure -Treatment Response Procedure Procedure Procedure Tolerated Well Tolerated Well Tolerated Well Pain Scale: 0-10 Numeric Is Patient Pain Free? Yes Yes Yes Wound debrided: Right posterior heel Laterality: Right Type of Debridement: Excisional debridement Anesthesia Used: 4% Lidocaine Solution Depth: in the subcutaneous layer Percentage of wound debrided: 100 Instrument Used: #15 blade, - - Tissue nipper Tissue Removed: Adherent slough, fibrin, hyperkeratotic tissue Severity: Fat Layer Exposed Amount of bleeding with debridement: Mild Bleeding Controlled with: Pressure Patient tolerated procedure well - Additional Wound Wound debrided: Right posterior calf Laterality: Right Type of Debridement: Excisional debridement Anesthesia Used: 4% Lidocaine Solution Depth: in the subcutaneous layer Percentage of wound debrided: 100 Instrument Used: 7mm curette Tissue Removed: Adherent slough, fibrin, hyperkeratotic tissue Severity: Fat Layer Exposed Amount of bleeding with debridement: Mild Bleeding Controlled with: Pressure Patient tolerated procedure: Patient tolerated procedure well Assessment/Plan Assessment: Ulcer to posterior right heel. Plan: Patient was again examined and evaluated in detail today. The aforementioned ulcers were both subcutaneously debrided as noted in the clinical panel. The ulcers were then carefully cleansed, and the right posterior heel and calf ulcers were then dressed with chris to the ulcer bases, followed by an offloading dry sterile dressing. The dressing is to be changed in this manner daily by home health. He was instructed to keep these areas offloaded as much as possible in order to help heal the ulcer sites. Patient is in the process of working with [facility] in order to get new offloading bilateral AFO. He is to continue to use his padded offloading boots with heel cut outs. He was instructed to continue with a diet high in protein to help optimize ulcer healing. He was educated on all signs and symptoms of local and systemic infection and was instructed to go to the ER immediately should he notice any. All questions were answered to the patient's satisfaction. Patient will follow-up in clinic in 1 week for further treatment and evaluation, or sooner if needed.
--- NOTE | 2018-03-09 13:17 | PN.PCM_ITS ---
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 Status: Acute Current Visit: No Code(s): E11.621 - Type 2 diabetes mellitus with foot ulcer; L97.416 - Non-pressure chronic ulcer of right heel and midfoot with bone involvement without evidence of necrosis (4) Chronic incomplete quadriplegia Status: Acute Current Visit: No Code(s): G82.50 - Quadriplegia, unspecified (5) Malnutrition Status: Acute Current Visit: No Code(s): E46 - Unspecified protein-calorie malnutrition (6) Delayed wound healing Status: Acute Current Visit: No Code(s): T14.8XXD - Other injury of unspecified body region, subsequent encounter Type of Wound Chief Complaint: Ulcer on right heel History of Wound: This is a 67-year-old white male who presents to the wound care center today for evaluation of a right heel ulcer. He has a past medical history as described above. The patient states that on the night of 06/06/2017, his heel protectors came off all night in bed and shortly after he noted an ulceration on his right heel and a purplish discoloration on his left heel. He states that there has been yellow drainage coming from his right heel and that yesterday he started using Granulex and Aquacel silver on the right heel. He denies any pain or foul-smelling discharge, however he does state that he has decreased sensation to his lower extremities due to his history of a spinal cord injury in high school. He currently has a suprapubic catheter as well due to his history of recurrent UTIs and obstructive uropathy. He also notes that his low air loss hospital bed is needing to be repaired so he is unable to use this at this time. The patient does state that he has a history of ulcerations on his right heel in the past where he had to be seen at a wound care center and ended up needing to have skin substitutes applied. He does note that he lives home alone and that he receives home health throughout the week. Patient was then referred to Dr. Gan at his office, who subsequently admitted the patient on Jul 04, for IV antibiotics and evaluation by ID. Infectious disease planned to d/c patient home on doxy 100mg bid, amoxicillin 500mg tid, and flagyl 500mg tid for planned 6 week course. He has since discharge been receiving daily dressing changes consisting of aquacel ag and a dry sterile dressing as well as wearing his PRAFO boots at all times. He otherwise denies any signs of systemic infection and denies any fever, chills, nausea, vomiting, chest pain or pressure, syncope or presyncopal episodes. Progress of Wound: Patient returns to wound healing center this week for continued treatment of right heel ulcer and right posterior calf ulcer. Patient continues to wear offloading padded boots with heel cut outs over the last week. Patient had daily chris dressing changes. Patient is in the process of working with [employer] to get new custom offloading braces. He denies any purulence to the area. Ulcer sites remain stable. He denies any feeling of nausea, vomiting, fever, or chills currently. - Physical Exam Vital Signs Temp Pulse Resp BP 98.2 F 70 16 140/83 H 03/09/18 11:09 03/09/18 11:09 03/09/18 11:09 03/09/18 11:09 General: Alert, Oriented x3, Cooperative, No apparent distress Extremities: Capillary Refill Less than 3 Seconds, No Calf Tenderness - Negative Sarah Beth and Pretty sign, Diminished Peripheral Pulses Skin: Ulcer/ Wound - Ulcer to right posterior heel with fat layer exposed. Measurements are noted below. Ulcer to this area remains stable since last week. Base continues to be a mixture of adherent slough, fibrin, granular tissue as well as some surrounding hyperkeratotic tissue. Ulcer remains close to the calcaneus. There continues to be no malodor, no purulence, no extending cellulitis, no increase in warmth. Ulcer to the right posterior calf is also appreciated today with measurements noted below. Another slight improvement is appreciated again to this area. The base continues to be a mixture of adherent slough, fibrin, hyperkeratotic tissue, as well as some granular tissue. There is no probing to bone, no tracking, no undermining, no purulence, no malodor, no extending cellulitis, and no increase in warmth. Wound Measurements and Assessment WC - Nurse 1 - General Ulcer Measurement Start: 02/23/18 10:58 Freq: Status: Active Protocol: Activity Type Activity Date Activity User E-Sign Co-Sign Detail Recorded Client Recorded Date Recorded By Document 03/09/18 11:09 [facility] [id number] 03/09/18 11:26 [facility] 03/09/18 11:09 Wound Center Nurse 1 [Ulcer Assessment] #12 R Post LE -Combined with other wound No -Current Size (cm) - Length 2.4 -Current Size (cm) - Width 0.5 -Current Size (cm) - Depth 0.3 -Total Square Cm 1.20 -Photo Taken No -Epithelialization Small 1-33% -Tunneling No -Undermining/Tunneling No -Circular Undermining No -Exudate Amt Small (1-33%) -Exudate Type Serosanguineous -Wound Margin Distinct, Outline Attached -Granulation Amt Medium (34-66%) -Granulation Quality [place] -Slough/Fibrin Yes -Necrosis Amt Medium (34-66%) -Necrotic Tissue Type Adherent Slough -Texture (Francia-wound Skin Appearance) Scarring -Moisture (Francia-wound Skin Appearance Dry/Scaly ) -Color (Francia-wound Skin Appearance) Assessed -Temperature (Francia-wound Skin No Abnormality Appearance) (Pt Warm) -Tenderness on Palpation (Francia-wound No Skin Appearance) -Ulcer Cleansing Rinsed/ Irrigated with Saline -Foul Odor after Cleansing No -Anesthetic Used 4% Lidocaine Solution #11- RT HEEL -Combined with other wound No -Current Size (cm) - Length 0.3 -Current Size (cm) - Width 0.5 -Current Size (cm) - Depth 0.2 -Total Square Cm 0.15 -Photo Taken No -Epithelialization None Present -Tunneling No -Undermining/Tunneling Yes -Undermining/Tunneling Starts (O' 12 clock) -Undermining/Tunneling Ends (O'clock) 12 -Maximum Distance (cm) 0.5 -Circular Undermining Yes -Exudate Amt Small (1-33%) -Exudate Type Serosanguineous -Wound Margin Distinct, Outline Attached -Granulation Amt Medium (34-66%) -Granulation Quality Red -Slough/Fibrin Yes -Necrosis Amt Small (1-33%) -Necrotic Tissue Type Adherent Slough -Texture (Francia-wound Skin Appearance) Callus -Moisture (Francia-wound Skin Appearance Dry/Scaly ) -Color (Francia-wound Skin Appearance) Assessed -Temperature (Francia-wound Skin No Abnormality Appearance) (Pt Warm) -Tenderness on Palpation (Francia-wound No Skin Appearance) -Ulcer Cleansing Rinsed/ Irrigated with Saline -Foul Odor after Cleansing No -Anesthetic Used 4% Lidocaine Solution WC - Nurse 2 - General Ulcer CM Notes Start: 02/23/18 10:58 Freq: Status: Active Protocol: Activity Type Activity Date Activity User E-Sign Co-Sign Detail Recorded Client Recorded Date Recorded By Document 03/09/18 12:29 DV [id number] 03/09/18 12:33 DV 03/09/18 12:29 Wound Center Nurse 2 [Procedure/Treatment] #12 R Post LE -Time 12:30 -Correct Patient Yes -Correct Side, Site, Position Yes -Correct Procedure Yes -Procedure Performed Yes -Type of Procedure Debridement -Clinical Debridement Subcutaneous -Post Debridement Size (cm) - Length 2.4 -Post Debridement Size (cm) - Width 0.4 -Post Debridement Size (cm) - Depth 0.2 -Total Square Cm 0.96 -Wound/Ulcer Outcome Not Healed -Ulcer Cleansing Rinsed/ Irrigated with Saline -Foul Odor after Cleansing No -Bioengineered Tissue No -Bleeding Controlled with Pressure -Treatment Response Procedure Tolerated Well #11- RT HEEL -Time 12:30 -Correct Patient Yes -Correct Side, Site, Position Yes -Correct Procedure Yes -Procedure Performed Yes -Type of Procedure Debridement -Clinical Debridement Subcutaneous -Post Debridement Size (cm) - Length 0.8 -Post Debridement Size (cm) - Width 0.8 -Post Debridement Size (cm) - Depth 0.2 -Total Square Cm 0.64 -Wound/Ulcer Outcome Not Healed -Ulcer Cleansing Rinsed/ Irrigated with Saline -Foul Odor after Cleansing No -Bioengineered Tissue No -Bleeding Controlled with Pressure -Treatment Response Procedure Tolerated Well [See Physician Procedure note for Specifics] Pain Scale: 0-10 Numeric [Pain] -Is Patient Pain Free? Yes Musculoskeletal: No Tenderness to Palpation of Joints or Extremities, Muscle Wasting Neurological: - - Patient is an incomplete quadriplegic with very slight sensation in some areas throughout the lower extremity Psych/Mental Status: Normal Affect, Appropriate Debridement Note Post-Debridement Measurements/Treatment WC - Nurse 2 - General Ulcer CM Notes Start: 02/23/18 10:58 Freq: Status: Active Protocol: Activity Type Activity Date Activity User E-Sign Co-Sign Detail Recorded Client Recorded Date Recorded By Document 02/23/18 11:42 DV [id number] 02/23/18 11:46 DV Document 03/02/18 11:52 DV [id number] 03/02/18 11:55 DV Document 03/09/18 12:29 DV [id number] 03/09/18 12:33 DV 02/23/18 03/02/18 03/09/18 11:42 11:52 12:29 Wound Center Nurse 2 #12 R Post LE -Time 11:42 11:53 12:30 -Correct Patient Yes Yes Yes -Correct Side, Site, Position Yes Yes Yes -Correct Procedure Yes Yes Yes -Procedure Performed Yes Yes Yes -Type of Procedure Debridement Debridement Debridement -Clinical Debridement Subcutaneous Subcutaneous Subcutaneous -Post Debridement Size (cm) - Length 2.5 2.1 2.4 -Post Debridement Size (cm) - Width 1.0 0.5 0.4 -Post Debridement Size (cm) - Depth 0.2 0.1 0.2 -Total Square Cm 2.50 1.05 0.96 -Wound/Ulcer Outcome Not Healed Not Healed Not Healed -Ulcer Cleansing Rinsed/ Rinsed/ Rinsed/ Irrigated with Irrigated with Irrigated with Saline Saline Saline -Foul Odor after Cleansing No No No -Bioengineered Tissue No No No -Bleeding Controlled with Pressure Pressure Pressure -Treatment Response Procedure Procedure Procedure Tolerated Well Tolerated Well Tolerated Well #11- RT HEEL -Time 11:45 11:54 12:30 -Correct Patient Yes Yes Yes -Correct Side, Site, Position Yes Yes Yes -Correct Procedure Yes Yes Yes -Procedure Performed Yes Yes Yes -Type of Procedure Debridement Debridement Debridement -Clinical Debridement Subcutaneous Subcutaneous Subcutaneous -Post Debridement Size (cm) - Length 0.6 0.8 0.8 -Post Debridement Size (cm) - Width 1.0 1.1 0.8 -Post Debridement Size (cm) - Depth 0.1 0.2 0.2 -Total Square Cm 0.60 0.88 0.64 -Wound/Ulcer Outcome Not Healed Not Healed Not Healed -Ulcer Cleansing Rinsed/ Rinsed/ Rinsed/ Irrigated with Irrigated with Irrigated with Saline Saline Saline -Foul Odor after Cleansing No No No -Bioengineered Tissue No No No -Bleeding Controlled with Pressure Pressure Pressure -Treatment Response Procedure Procedure Procedure Tolerated Well Tolerated Well Tolerated Well Pain Scale: 0-10 Numeric Is Patient Pain Free? Yes Yes Yes Wound debrided: Right posterior heel Laterality: Right Type of Debridement: Excisional debridement Anesthesia Used: 4% Lidocaine Solution Depth: in the subcutaneous layer Percentage of wound debrided: 100 Instrument Used: #15 blade, - - Tissue nipper Tissue Removed: Adherent slough, fibrin, hyperkeratotic tissue Severity: Fat Layer Exposed Amount of bleeding with debridement: Mild Bleeding Controlled with: Pressure Patient tolerated procedure well - Additional Wound Wound debrided: Right posterior calf Laterality: Right Type of Debridement: Excisional debridement Anesthesia Used: 4% Lidocaine Solution Depth: in the subcutaneous layer Percentage of wound debrided: 100 Instrument Used: 7mm curette Tissue Removed: Adherent slough, fibrin, hyperkeratotic tissue Severity: Fat Layer Exposed Amount of bleeding with debridement: Mild Bleeding Controlled with: Pressure Patient tolerated procedure: Patient tolerated procedure well Assessment/Plan Assessment: Ulcer to posterior right heel. Plan: Patient was again examined and evaluated in detail today. The aforementioned ulcers were both subcutaneously debrided as noted in the clinical panel. The ulcers were then carefully cleansed, and the right posterior heel and calf ulcers were then dressed with chris to the ulcer bases, followed by an offloading dry sterile dressing. The dressing is to be changed in this manner daily by home health. He was instructed to keep these areas offloaded as much as possible in order to help heal the ulcer sites. Patient is in the process of working with [employer] in order to get new offloading bilateral AFO. He is to continue to use his padded offloading boots with heel cut outs. He was instructed to continue with a diet high in protein to help optimize ulcer healing. He was educated on all signs and symptoms of local and systemic infection and was instructed to go to the ER immediately should he notice any. All questions were answered to the patient's satisfaction. Patient will follow- up in clinic in 1 week for further treatment and evaluation, or sooner if needed.
[2018-03-16 10:57] VITALS: BP 132/64; PULSE 75; RESP 16; TEMP 36.1; BMI 26.6
--- NOTE | 2018-03-16 13:03 | PCM.WC.PN ---
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 Status: Acute Current Visit: No Code(s): E11.621 - Type 2 diabetes mellitus with foot ulcer; L97.416 - Non-pressure chronic ulcer of right heel and midfoot with bone involvement without evidence of necrosis (4) Chronic incomplete quadriplegia Status: Acute Current Visit: No Code(s): G82.50 - Quadriplegia, unspecified (5) Malnutrition Status: Acute Current Visit: No Code(s): E46 - Unspecified protein-calorie malnutrition (6) Delayed wound healing Status: Acute Current Visit: No Code(s): T14.8XXD - Other injury of unspecified body region, subsequent encounter Type of Wound Chief Complaint: Ulcer on right heel History of Wound: This is a 67-year-old white male who presents to the wound care center today for evaluation of a right heel ulcer. He has a past medical history as described above. The patient states that on the night of 06/06/2017, his heel protectors came off all night in bed and shortly after he noted an ulceration on his right heel and a purplish discoloration on his left heel. He states that there has been yellow drainage coming from his right heel and that yesterday he started using Granulex and Aquacel silver on the right heel. He denies any pain or foul-smelling discharge, however he does state that he has decreased sensation to his lower extremities due to his history of a spinal cord injury in high school. He currently has a suprapubic catheter as well due to his history of recurrent UTIs and obstructive uropathy. He also notes that his low air loss hospital bed is needing to be repaired so he is unable to use this at this time. The patient does state that he has a history of ulcerations on his right heel in the past where he had to be seen at a wound care center and ended up needing to have skin substitutes applied. He does note that he lives home alone and that he receives home health throughout the week. Patient was then referred to Dr. Gan at his office, who subsequently admitted the patient on Jul 04, for IV antibiotics and evaluation by ID. Infectious disease planned to d/c patient home on doxy 100mg bid, amoxicillin 500mg tid, and flagyl 500mg tid for planned 6 week course. He has since discharge been receiving daily dressing changes consisting of aquacel ag and a dry sterile dressing as well as wearing his PRAFO boots at all times. He otherwise denies any signs of systemic infection and denies any fever, chills, nausea, vomiting, chest pain or pressure, syncope or presyncopal episodes. Progress of Wound: Patient returns to wound healing center this week for continued treatment of right heel ulcer and right posterior calf ulcer. Patient continues to wear offloading padded boots with heel cut outs over the last week. Patient had daily chris dressing changes. Patient is in the process of working with [facility] to get new custom offloading braces. He has another appointment with them next . He denies any purulence to the area. Ulcer sites remain stable. He denies any feeling of nausea, vomiting, fever, or chills currently. - Physical Exam Vital Signs Temp Pulse Resp BP 97 F L 75 16 132/64 H 03/16/18 10:57 03/16/18 10:57 03/16/18 10:57 03/16/18 10:57 General: Alert, Oriented x3, Cooperative, No apparent distress Extremities: Capillary Refill Less than 3 Seconds, No Calf Tenderness - Negative Sarah Beth and Pretty sign, Diminished Peripheral Pulses Skin: Ulcer/ Wound - Ulcer to right posterior heel with fat layer exposed. Measurements noted below. Ulcer stable since last week. Base continues to be a mixture of adherent slough, fibrin, granular tissue as well as some surrounding hyperkeratotic tissue. Ulcer is close to calcaneus. There continues to be no malodor, no purulence, no extending cellulitis, no increase in warmth. Ulcer to right posterior calf also noted. Measurements below. The base continues to be a mixture of adherent slough, fibrin, hyperkeratotic tissue, granular tissue. There is no probing to bone, no tracking, no undermining, no purulence, no malodor, no extending cellulitis, no increase in warmth. Wound Measurements and Assessment WC - Nurse 1 - General Ulcer Measurement Start: 02/23/18 10:58 Freq: Status: Active Protocol: Activity Type Activity Date Activity User E-Sign Co-Sign Detail Recorded Client Recorded Date Recorded By Document 03/16/18 10:57 [facility] [id number] 03/16/18 11:06 [facility] 03/16/18 10:57 Wound Center Nurse 1 [Ulcer Assessment] #12 R Post LE -Combined with other wound No -Current Size (cm) - Length 2.8 -Current Size (cm) - Width 1.1 -Current Size (cm) - Depth 0.3 -Total Square Cm 3.08 -Photo Taken No -Tunneling No -Undermining/Tunneling No -Circular Undermining No -Exudate Amt Small (1-33%) -Exudate Type Serosanguineous -Wound Margin Thickened & Rolled Under -Granulation Amt Medium (34-66%) -Granulation Quality Pale [place] -Necrosis Amt Medium (34-66%) -Necrotic Tissue Type Adherent Slough -Texture (Francia-wound Skin Appearance) Assessed Rash -Moisture (Francia-wound Skin Appearance Assessed ) -Color (Francia-wound Skin Appearance) Assessed Rubor -Temperature (Francia-wound Skin No Abnormality Appearance) (Pt Warm) -Tenderness on Palpation (Francia-wound No Skin Appearance) -Ulcer Cleansing Rinsed/ Irrigated with Saline -Foul Odor after Cleansing No -Anesthetic Used 4% Lidocaine Solution #11- RT HEEL -Combined with other wound No -Current Size (cm) - Length 0.4 -Current Size (cm) - Width 0.3 -Current Size (cm) - Depth 0.3 -Total Square Cm 0.12 -Photo Taken No -Tunneling No -Undermining/Tunneling Yes -Undermining/Tunneling Starts (O' 5 clock) -Undermining/Tunneling Ends (O'clock) 7 -Maximum Distance (cm) 0.4 -Circular Undermining No -Exudate Amt Small (1-33%) -Exudate Type Serosanguineous -Wound Margin Distinct, Outline Attached -Granulation Amt Small (1-33%) -Granulation Quality Pale [place] -Necrosis Amt Large (67-100%) -Necrotic Tissue Type Adherent Slough -Texture (Francia-wound Skin Appearance) Assessed -Moisture (Francia-wound Skin Appearance Assessed ) -Color (Francia-wound Skin Appearance) Assessed -Temperature (Francia-wound Skin No Abnormality Appearance) (Pt Warm) -Tenderness on Palpation (Francia-wound No Skin Appearance) -Ulcer Cleansing Rinsed/ Irrigated with Saline -Foul Odor after Cleansing No -Anesthetic Used 4% Lidocaine Solution WC - Nurse 2 - General Ulcer CM Notes Start: 02/23/18 10:58 Freq: Status: Active Protocol: Activity Type Activity Date Activity User E-Sign Co-Sign Detail Recorded Client Recorded Date Recorded By Document 03/16/18 11:36 DV [id number] 03/16/18 11:41 DV 03/16/18 11:36 Wound Center Nurse 2 [Procedure/Treatment] #12 R Post LE -Time 11:39 -Correct Patient Yes -Correct Side, Site, Position Yes -Correct Procedure Yes -Procedure Performed Yes -Type of Procedure Debridement -Clinical Debridement Subcutaneous -Post Debridement Size (cm) - Length 2.4 -Post Debridement Size (cm) - Width 0.5 -Post Debridement Size (cm) - Depth 0.2 -Total Square Cm 1.20 -Wound/Ulcer Outcome Not Healed -Ulcer Cleansing Rinsed/ Irrigated with Saline -Foul Odor after Cleansing No -Bioengineered Tissue No -Bleeding Controlled with Pressure -Treatment Response Procedure Tolerated Well #11- RT HEEL -Time 11:40 -Correct Patient Yes -Correct Side, Site, Position Yes -Correct Procedure Yes -Procedure Performed Yes -Type of Procedure Debridement -Clinical Debridement Subcutaneous -Post Debridement Size (cm) - Length 0.6 -Post Debridement Size (cm) - Width 0.5 -Post Debridement Size (cm) - Depth 0.2 -Total Square Cm 0.30 -Wound/Ulcer Outcome Not Healed -Ulcer Cleansing Rinsed/ Irrigated with Saline -Foul Odor after Cleansing No -Bioengineered Tissue No -Bleeding Controlled with Pressure -Treatment Response Procedure Tolerated Well [See Physician Procedure note for Specifics] Pain Scale: 0-10 Numeric [Pain] -Is Patient Pain Free? No Musculoskeletal: No Tenderness to Palpation of Joints or Extremities, Muscle Wasting Neurological: - - Patient is an incomplete quadriplegic with very slight sensation in some areas throughout the lower extremity Psych/Mental Status: Normal Affect, Appropriate Debridement Note Post-Debridement Measurements/Treatment WC - Nurse 2 - General Ulcer CM Notes Start: 02/23/18 10:58 Freq: Status: Active Protocol: Activity Type Activity Date Activity User E-Sign Co-Sign Detail Recorded Client Recorded Date Recorded By Document 02/23/18 11:42 DV [id number] 02/23/18 11:46 DV Document 03/02/18 11:52 DV [id number] 03/02/18 11:55 DV Document 03/09/18 12:29 DV [id number] 03/09/18 12:33 DV Document 03/16/18 11:36 DV [id number] 03/16/18 11:41 DV 02/23/18 03/02/18 03/09/18 11:42 11:52 12:29 Wound Center Nurse 2 #12 R Post LE -Time 11:42 11:53 12:30 -Correct Patient Yes Yes Yes -Correct Side, Site, Position Yes Yes Yes -Correct Procedure Yes Yes Yes -Procedure Performed Yes Yes Yes -Type of Procedure Debridement Debridement Debridement -Clinical Debridement Subcutaneous Subcutaneous Subcutaneous -Post Debridement Size (cm) - Length 2.5 2.1 2.4 -Post Debridement Size (cm) - Width 1.0 0.5 0.4 -Post Debridement Size (cm) - Depth 0.2 0.1 0.2 -Total Square Cm 2.50 1.05 0.96 -Wound/Ulcer Outcome Not Healed Not Healed Not Healed -Ulcer Cleansing Rinsed/ Rinsed/ Rinsed/ Irrigated with Irrigated with Irrigated with Saline Saline Saline -Foul Odor after Cleansing No No No -Bioengineered Tissue No No No -Bleeding Controlled with Pressure Pressure Pressure -Treatment Response Procedure Procedure Procedure Tolerated Well Tolerated Well Tolerated Well #11- RT HEEL -Time 11:45 11:54 12:30 -Correct Patient Yes Yes Yes -Correct Side, Site, Position Yes Yes Yes -Correct Procedure Yes Yes Yes -Procedure Performed Yes Yes Yes -Type of Procedure Debridement Debridement Debridement -Clinical Debridement Subcutaneous Subcutaneous Subcutaneous -Post Debridement Size (cm) - Length 0.6 0.8 0.8 -Post Debridement Size (cm) - Width 1.0 1.1 0.8 -Post Debridement Size (cm) - Depth 0.1 0.2 0.2 -Total Square Cm 0.60 0.88 0.64 -Wound/Ulcer Outcome Not Healed Not Healed Not Healed -Ulcer Cleansing Rinsed/ Rinsed/ Rinsed/ Irrigated with Irrigated with Irrigated with Saline Saline Saline -Foul Odor after Cleansing No No No -Bioengineered Tissue No No No -Bleeding Controlled with Pressure Pressure Pressure -Treatment Response Procedure Procedure Procedure Tolerated Well Tolerated Well Tolerated Well Pain Scale: 0-10 Numeric Is Patient Pain Free? Yes Yes Yes 03/16/18 11:36 Wound Center Nurse 2 #12 R Post LE -Time 11:39 -Correct Patient Yes -Correct Side, Site, Position Yes -Correct Procedure Yes -Procedure Performed Yes -Type of Procedure Debridement -Clinical Debridement Subcutaneous -Post Debridement Size (cm) - Length 2.4 -Post Debridement Size (cm) - Width 0.5 -Post Debridement Size (cm) - Depth 0.2 -Total Square Cm 1.20 -Wound/Ulcer Outcome Not Healed -Ulcer Cleansing Rinsed/ Irrigated with Saline -Foul Odor after Cleansing No -Bioengineered Tissue No -Bleeding Controlled with Pressure -Treatment Response Procedure Tolerated Well #11- RT HEEL -Time 11:40 -Correct Patient Yes -Correct Side, Site, Position Yes -Correct Procedure Yes -Procedure Performed Yes -Type of Procedure Debridement -Clinical Debridement Subcutaneous -Post Debridement Size (cm) - Length 0.6 -Post Debridement Size (cm) - Width 0.5 -Post Debridement Size (cm) - Depth 0.2 -Total Square Cm 0.30 -Wound/Ulcer Outcome Not Healed -Ulcer Cleansing Rinsed/ Irrigated with Saline -Foul Odor after Cleansing No -Bioengineered Tissue No -Bleeding Controlled with Pressure -Treatment Response Procedure Tolerated Well Pain Scale: 0-10 Numeric Is Patient Pain Free? No Wound debrided: Right posterior heel Laterality: Right Type of Debridement: Excisional debridement Anesthesia Used: 4% Lidocaine Solution Depth: in the subcutaneous layer Percentage of wound debrided: 100 Instrument Used: #15 blade, - - Tissue nipper Tissue Removed: Adherent slough, fibrin, hyperkeratotic tissue Severity: Fat Layer Exposed Amount of bleeding with debridement: Mild Bleeding Controlled with: Pressure Patient tolerated procedure well - Additional Wound Wound debrided: Right posterior calf Laterality: Right Type of Debridement: Excisional debridement Anesthesia Used: 4% Lidocaine Solution Depth: in the subcutaneous layer Percentage of wound debrided: 100 Instrument Used: 7mm curette Tissue Removed: Adherent slough, fibrin, hyperkeratotic tissue Severity: Fat Layer Exposed Amount of bleeding with debridement: Mild Bleeding Controlled with: Pressure Patient tolerated procedure: Patient tolerated procedure well Assessment/Plan Assessment: Ulcer to posterior right heel. Plan: Patient was again examined and evaluated in detail today. The aforementioned ulcers were both subcutaneously debrided as noted in the clinical panel. The ulcers were then carefully cleansed, and the right posterior heel and calf ulcers were then dressed with chris to the ulcer bases, followed by an offloading dry sterile dressing. The dressing is to be changed in this manner daily by home health. He was instructed to keep these areas offloaded as much as possible in order to help heal the ulcer sites. Patient is in the process of working with [facility] in order to get new offloading bilateral AFO. He has an appointment again with them next . He is to continue to use his padded offloading boots with heel cut outs in the mean time. He was instructed to continue with a diet high in protein to help optimize ulcer healing. He was educated on all signs and symptoms of local and systemic infection and was instructed to go to the ER immediately should he notice any. All questions were answered to the patient's satisfaction. Patient will follow-up in clinic in 1 week for further treatment and evaluation, or sooner if needed.
== END 2018-03-22 23:59 ==
LOC: WC 11:00
PROVIDERS: Visit Provider Podiatrist
DX: E11.622 Type 2 diabetes mellitus with other skin ulcer (principal); E11.42 Type 2 diabetes mellitus with diabetic polyneuropathy; E11.621 Type 2 diabetes mellitus with foot ulcer; G82.50 Quadriplegia, unspecified; L97.412 Non-pressure chronic ulcer of right heel and midfoot with fat layer exposed; L97.212 Non-pressure chronic ulcer of right calf with fat layer exposed
CPT/HCPCS: 11042; 11045

== ENCOUNTER → 2018-03-30 13:36 | Outpatient (CLI) | payer MEDICARE, OTHER, SELFPAY | PROVIDERS: Referring Provider Surgery; Visit Provider Surgery | DX: Z45.2 Encounter for adjustment and management of vascular access device (principal); E11.622 Type 2 diabetes mellitus with other skin ulcer; E11.42 Type 2 diabetes mellitus with diabetic polyneuropathy; E11.621 Type 2 diabetes mellitus with foot ulcer; G82.50 Quadriplegia, unspecified; L97.412 Non-pressure chronic ulcer of right heel and midfoot with fat layer exposed; L97.212 Non-pressure chronic ulcer of right calf with fat layer exposed | CPT/HCPCS: 96523; A4216 ==

== ENCOUNTER 2018-04-06 11:00 | Outpatient (RCR) | payer MEDICARE, OTHER, SELFPAY ==
[2018-03-23 00:47] VITALS: BP 132/64; PULSE 75; RESP 16; TEMP 36.1; BMI 26.6
[2018-03-23 11:00] VITALS: BP 104/64; PULSE 92; RESP 16; TEMP 36.2; BMI 26.6
--- NOTE | 2018-03-23 14:10 | PN.PCM_ITS ---
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 Status: Acute Current Visit: No Code(s): E11.621 - Type 2 diabetes mellitus with foot ulcer; L97.416 - Non-pressure chronic ulcer of right heel and midfoot with bone involvement without evidence of necrosis (3) Malnutrition Status: Acute Current Visit: No Code(s): E46 - Unspecified protein-calorie malnutrition (4) Delayed wound healing Status: Acute Current Visit: No Code(s): T14.8XXD - Other injury of unspecified body region, subsequent encounter (5) Type 2 diabetes mellitus with diabetic polyneuropathy Status: Acute Current Visit: No Code(s): E11.42 - Type 2 diabetes mellitus with diabetic polyneuropathy (6) Chronic incomplete quadriplegia Status: Acute Current Visit: No Code(s): G82.50 - Quadriplegia, unspecified Type of Wound Chief Complaint: Ulcer on right heel History of Wound: This is a 67-year-old white male who presents to the wound care center today for evaluation of a right heel ulcer. He has a past medical history as described above. The patient states that on the night of 06/06/2017, his heel protectors came off all night in bed and shortly after he noted an ulceration on his right heel and a purplish discoloration on his left heel. He states that there has been yellow drainage coming from his right heel and that yesterday he started using Granulex and Aquacel silver on the right heel. He denies any pain or foul-smelling discharge, however he does state that he has decreased sensation to his lower extremities due to his history of a spinal cord injury in high school. He currently has a suprapubic catheter as well due to his history of recurrent UTIs and obstructive uropathy. He also notes that his low air loss hospital bed is needing to be repaired so he is unable to use this at this time. The patient does state that he has a history of ulcerations on his right heel in the past where he had to be seen at a wound care center and ended up needing to have skin substitutes applied. He does note that he lives home alone and that he receives home health throughout the week. Patient was then referred to Dr. Gan at his office, who subsequently admitted the patient on Jul 04, for IV antibiotics and evaluation by ID. Infectious disease planned to d/c patient home on doxy 100mg bid, amoxicillin 500mg tid, and flagyl 500mg tid for planned 6 week course. He has since discharge been receiving daily dressing changes consisting of aquacel ag and a dry sterile dressing as well as wearing his PRAFO boots at all times. He otherwise denies any signs of systemic infection and denies any fever, chills, nausea, vomiting, chest pain or pressure, syncope or presyncopal episodes. Progress of Wound: Patient returns to wound healing center this week for continued treatment of right heel ulcer and right posterior calf ulcer. Patient continues to wear offloading padded boots with heel cut outs over the last week. Patient had daily chris dressing changes. Patient is in the process of working with [employer] to get new custom offloading braces. He has another appointment with them this afternoon. He denies any purulence to the area. Ulcer sites remain stable. He denies any feeling of nausea, vomiting, fever, or chills currently. - Physical Exam Vital Signs Temp Pulse Resp BP 97.1 F L 92 16 104/64 03/23/18 11:03/23/18 11:00 03/23/18 11:03/23/18 11:00 General: Alert, Oriented x3, Cooperative, No apparent distress Extremities: Capillary Refill Less than 3 Seconds, No Calf Tenderness - Negative Sarah Beth and Pretty sign, Diminished Peripheral Pulses Skin: Ulcer/ Wound - Ulcer to right posterior heel with fat layer exposed. Measurements noted below. Ulcer stable since last week. Base continues to be a mixture of adherent slough, fibrin, granular tissue as well as some surrounding hyperkeratotic tissue. Ulcer is close to calcaneus. There continues to be no malodor, no purulence, no extending cellulitis, no increase in warmth. Ulcer to right posterior calf also noted. Measurements below. The base continues to be a mixture of adherent slough, fibrin, hyperkeratotic tissue, granular tissue. There is no probing to bone, no tracking, no undermining, no purulence, no malodor, no extending cellulitis, no increase in warmth. Wound Measurements and Assessment WC - Nurse 1 - General Ulcer Measurement Start: 03/23/18 11:00 Freq: Status: Active Protocol: Activity Type Activity Date Activity User E-Sign Co-Sign Detail Recorded Client Recorded Date Recorded By Document 03/23/18 11:00 [id number] 03/23/18 11:10 03/23/18 11:00 Wound Center Nurse 1 [Ulcer Assessment] #12 R Post LE -Combined with other wound No -Current Size (cm) - Length 2.4 -Current Size (cm) - Width 0.9 -Current Size (cm) - Depth 0.3 -Total Square Cm 2.16 -Photo Taken No -Epithelialization Small 1-33% -Tunneling No -Undermining/Tunneling No -Circular Undermining No -Exudate Amt Small (1-33%) -Exudate Type Serosanguineous -Wound Margin Distinct, Outline Attached -Granulation Amt Small (1-33%) -Granulation Quality Red -Slough/Fibrin Yes -Necrosis Amt Medium (34-66%) -Necrotic Tissue Type Adherent Slough -Texture (Francia-wound Skin Appearance) Assessed Scarring -Moisture (Francia-wound Skin Appearance Assessed ) Dry/Scaly -Color (Francia-wound Skin Appearance) No Abnormality Assessed -Temperature (Francia-wound Skin No Abnormality Appearance) (Pt Warm) -Tenderness on Palpation (Francia-wound No Skin Appearance) -Ulcer Cleansing Rinsed/ Irrigated with Saline -Foul Odor after Cleansing No -Anesthetic Used 4% Lidocaine Solution #11- RT HEEL -Combined with other wound No -Current Size (cm) - Length 0.3 -Current Size (cm) - Width 0.4 -Current Size (cm) - Depth 0.4 -Total Square Cm 0.12 -Photo Taken No -Epithelialization None Present -Tunneling No -Undermining/Tunneling Yes -Undermining/Tunneling Starts (O' 12 clock) -Undermining/Tunneling Ends (O'clock) 12 -Maximum Distance (cm) 0.4 -Circular Undermining Yes -Exudate Amt None Present (0 %) -Exudate Type Serosanguineous -Granulation Amt Medium (34-66%) -Granulation Quality Pale [place] -Slough/Fibrin Yes -Necrosis Amt Medium (34-66%) -Necrotic Tissue Type Adherent Slough -Texture (Francia-wound Skin Appearance) Assessed Scarring -Moisture (Francia-wound Skin Appearance Assessed ) Maceration Weeping -Color (Francia-wound Skin Appearance) No Abnormality Assessed -Temperature (Francia-wound Skin No Abnormality Appearance) (Pt Warm) -Tenderness on Palpation (Francia-wound No Skin Appearance) -Ulcer Cleansing Rinsed/ Irrigated with Saline -Foul Odor after Cleansing No -Anesthetic Used 4% Lidocaine Solution Musculoskeletal: No Tenderness to Palpation of Joints or Extremities, Muscle Wasting Neurological: - - Patient is an incomplete quadriplegic with very slight sensation in some areas throughout the lower extremity Psych/Mental Status: Normal Affect, Appropriate Debridement Note Wound debrided: Right posterior heel Laterality: Right Type of Debridement: Excisional debridement Anesthesia Used: 4% Lidocaine Solution Depth: in the subcutaneous layer Percentage of wound debrided: 100 Instrument Used: #15 blade, - - Tissue nipper Tissue Removed: Adherent slough, fibrin, hyperkeratotic tissue Severity: Fat Layer Exposed Amount of bleeding with debridement: Mild Bleeding Controlled with: Pressure Patient tolerated procedure well - Additional Wound Wound debrided: Right posterior calf Laterality: Right Type of Debridement: Excisional debridement Anesthesia Used: 4% Lidocaine Solution Depth: in the subcutaneous layer Percentage of wound debrided: 100 Instrument Used: 7mm curette Tissue Removed: Adherent slough, fibrin, hyperkeratotic tissue Severity: Fat Layer Exposed Amount of bleeding with debridement: Mild Bleeding Controlled with: Pressure Patient tolerated procedure: Patient tolerated procedure well Assessment/Plan Assessment: Ulcer to posterior right heel. Plan: Patient was again examined and evaluated in detail today. The aforementioned ulcers were both subcutaneously debrided as noted in the clinical panel. The ulcers were then carefully cleansed, and the right posterior heel and calf ulcers were then dressed with chris to the ulcer bases, followed by an offloading dry sterile dressing. The dressing is to be changed in this manner daily by home health. He was instructed to keep these areas offloaded as much as possible in order to help heal the ulcer sites. Patient is in the process of working with [facility] in order to get new offloading bilateral AFO. He has an appointment again with them this afternoon. He is to continue to use his padded offloading boots with heel cut outs in the mean time. He was instructed to continue with a diet high in protein to help optimize ulcer healing. He was educated on all signs and symptoms of local and systemic infection and was instructed to go to the ER immediately should he notice any. All questions were answered to the patient's satisfaction. Patient will follow-up in clinic in 1 week for further treatment and evaluation, or sooner if needed.
[2018-03-30 11:06] VITALS: BP 112/62; PULSE 71; RESP 18; TEMP 36; BMI 26.6
--- NOTE | 2018-03-30 14:25 | PCM.WC.PN ---
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 Status: Acute Current Visit: No Code(s): E11.621 - Type 2 diabetes mellitus with foot ulcer; L97.416 - Non-pressure chronic ulcer of right heel and midfoot with bone involvement without evidence of necrosis (3) Malnutrition Status: Acute Current Visit: No Code(s): E46 - Unspecified protein-calorie malnutrition (4) Delayed wound healing Status: Acute Current Visit: No Code(s): T14.8XXD - Other injury of unspecified body region, subsequent encounter (5) Type 2 diabetes mellitus with diabetic polyneuropathy Status: Acute Current Visit: No Code(s): E11.42 - Type 2 diabetes mellitus with diabetic polyneuropathy (6) Chronic incomplete quadriplegia Status: Acute Current Visit: No Code(s): G82.50 - Quadriplegia, unspecified Type of Wound Chief Complaint: Ulcer on right heel History of Wound: This is a 67-year-old white male who presents to the wound care center today for evaluation of a right heel ulcer. He has a past medical history as described above. The patient states that on the night of 06/06/2017, his heel protectors came off all night in bed and shortly after he noted an ulceration on his right heel and a purplish discoloration on his left heel. He states that there has been yellow drainage coming from his right heel and that yesterday he started using Granulex and Aquacel silver on the right heel. He denies any pain or foul-smelling discharge, however he does state that he has decreased sensation to his lower extremities due to his history of a spinal cord injury in high school. He currently has a suprapubic catheter as well due to his history of recurrent UTIs and obstructive uropathy. He also notes that his low air loss hospital bed is needing to be repaired so he is unable to use this at this time. The patient does state that he has a history of ulcerations on his right heel in the past where he had to be seen at a wound care center and ended up needing to have skin substitutes applied. He does note that he lives home alone and that he receives home health throughout the week. Patient was then referred to Dr. Gan at his office, who subsequently admitted the patient on Jul 04, for IV antibiotics and evaluation by ID. Infectious disease planned to d/c patient home on doxy 100mg bid, amoxicillin 500mg tid, and flagyl 500mg tid for planned 6 week course. He has since discharge been receiving daily dressing changes consisting of aquacel ag and a dry sterile dressing as well as wearing his PRAFO boots at all times. He otherwise denies any signs of systemic infection and denies any fever, chills, nausea, vomiting, chest pain or pressure, syncope or presyncopal episodes. Progress of Wound: Patient returns to wound healing center this week for continued treatment of right heel ulcer and right posterior calf ulcer. Patient continues to wear offloading padded boots with heel cut outs over the last week. Patient had daily chris dressing changes. Patient is in the process of working with [employer] to get new custom offloading braces. He was casted last . He denies any purulence to the area. Ulcer sites remain stable. He denies any feeling of nausea, vomiting, fever, or chills currently. - Physical Exam Vital Signs Temp Pulse Resp BP 96.8 F L 71 18 112/62 03/30/18 11:06 03/30/18 11:06 03/30/18 11:06 03/30/18 11:06 General: Alert, Oriented x3, Cooperative, No apparent distress Extremities: Capillary Refill Less than 3 Seconds, No Calf Tenderness - Negative Sarah Beth and Pretty sign, Diminished Peripheral Pulses Skin: Ulcer/ Wound - Ulcer to right posterior heel with fat layer exposed. Measurements are noted below. Ulcer to right heel is stable this week. Ulcer to right posterior calf appears improved with skin bridging appreciated in the center of the ulcer site. The bases of each site continue to be a mixture of adherent slough, fibrin, granular tissue as well as some surrounding hyperkeratotic tissue. Ulcer to right heel is close to the calcaneus. There continues to be no malodor, no purulence, no extending cellulitis, no increase in warmth. Wound Measurements and Assessment WC - Nurse 1 - General Ulcer Measurement Start: 03/23/18 11:00 Freq: Status: Active Protocol: Activity Type Activity Date Activity User E-Sign Co-Sign Detail Recorded Client Recorded Date Recorded By Document 03/30/18 11:06 RB [id number] 03/30/18 11:14 RB 03/30/18 11:06 Wound Center Nurse 1 [Ulcer Assessment] #12 R Post LE -Combined with other wound No -Current Size (cm) - Length 1.3 -Current Size (cm) - Width 0.5 -Current Size (cm) - Depth 0.3 -Total Square Cm 0.65 -Tunneling No -Undermining/Tunneling No -Circular Undermining No -Classification - Thickness Full Thickness without Exposed Support Structure -Exudate Amt Small (1-33%) -Exudate Type Serosanguineous -Wound Margin Distinct, Outline Attached -Granulation Amt Medium (34-66%) -Granulation Quality [place] -Slough/Fibrin Yes -Necrosis Amt Medium (34-66%) -Necrotic Tissue Type Adherent Slough -Structure Exposed N/A -Texture (Francia-wound Skin Appearance) Assessed Friable -Moisture (Francia-wound Skin Appearance Assessed ) -Color (Francia-wound Skin Appearance) Assessed -Temperature (Francia-wound Skin No Abnormality Appearance) (Pt Warm) -Tenderness on Palpation (Francia-wound No Skin Appearance) -Ulcer Cleansing Rinsed/ Irrigated with Saline -Foul Odor after Cleansing No -Anesthetic Used 4% Lidocaine Solution #11- RT HEEL -Combined with other wound No -Current Size (cm) - Length 2.2 -Current Size (cm) - Width 0.4 -Current Size (cm) - Depth 0.3 -Total Square Cm 0.88 -Photo Taken No -Tunneling No -Circular Undermining No -Classification - Thickness Full Thickness without Exposed Support Structure -Exudate Amt Small (1-33%) -Exudate Type Serosanguineous -Wound Margin Distinct, Outline Attached -Granulation Amt Medium (34-66%) -Granulation Quality [place] -Slough/Fibrin Yes -Necrosis Amt Medium (34-66%) -Necrotic Tissue Type Adherent Slough -Structure Exposed N/A -Texture (Francia-wound Skin Appearance) Assessed Friable -Moisture (Francia-wound Skin Appearance Assessed ) -Color (Francia-wound Skin Appearance) Assessed -Temperature (Francia-wound Skin No Abnormality Appearance) (Pt Warm) -Tenderness on Palpation (Francia-wound No Skin Appearance) -Ulcer Cleansing Rinsed/ Irrigated with Saline -Foul Odor after Cleansing No -Anesthetic Used 4% Lidocaine Solution WC - Nurse 2 - General Ulcer CM Notes Start: 03/23/18 11:00 Freq: Status: Active Protocol: Activity Type Activity Date Activity User E-Sign Co-Sign Detail Recorded Client Recorded Date Recorded By Document 03/30/18 11:52 DV [id number] 03/30/18 11:54 DV 03/30/18 11:52 Wound Center Nurse 2 [Procedure/Treatment] #12 R Post LE -Time 11:52 -Correct Patient Yes -Correct Side, Site, Position Yes -Correct Procedure Yes -Procedure Performed Yes -Type of Procedure Debridement -Clinical Debridement Subcutaneous -Post Debridement Size (cm) - Length 2.4 -Post Debridement Size (cm) - Width 0.3 -Post Debridement Size (cm) - Depth 0.2 -Total Square Cm 0.72 -Wound/Ulcer Outcome Not Healed -Ulcer Cleansing Rinsed/ Irrigated with Saline -Foul Odor after Cleansing No -Bioengineered Tissue No -Bleeding Controlled with Pressure -Treatment Response Procedure Tolerated Well #11- RT HEEL -Time 11:53 -Correct Patient Yes -Correct Side, Site, Position Yes -Correct Procedure Yes -Procedure Performed Yes -Type of Procedure Debridement -Clinical Debridement Subcutaneous -Post Debridement Size (cm) - Length 1.4 -Post Debridement Size (cm) - Width 0.6 -Post Debridement Size (cm) - Depth 0.2 -Total Square Cm 0.84 -Wound/Ulcer Outcome Not Healed -Ulcer Cleansing Rinsed/ Irrigated with Saline -Foul Odor after Cleansing No -Bioengineered Tissue No -Bleeding Controlled with Pressure -Treatment Response Procedure Tolerated Well [See Physician Procedure note for Specifics] Pain Scale: 0-10 Numeric [Pain] -Is Patient Pain Free? Yes Musculoskeletal: No Tenderness to Palpation of Joints or Extremities, Muscle Wasting Neurological: - - Patient is an incomplete quadriplegic with very slight sensation in some areas throughout the lower extremity Psych/Mental Status: Normal Affect, Appropriate Debridement Note Post-Debridement Measurements/Treatment CHANTELLE - Nurse 2 - General Ulcer CM Notes Start: 03/23/18 11:00 Freq: Status: Active Protocol: Activity Type Activity Date Activity User E-Sign Co-Sign Detail Recorded Client Recorded Date Recorded By Document 03/30/18 11:52 DV [id number] 03/30/18 11:54 DV 03/30/18 11:52 Wound Center Nurse 2 #12 R Post LE -Time 11:52 -Correct Patient Yes -Correct Side, Site, Position Yes -Correct Procedure Yes -Procedure Performed Yes -Type of Procedure Debridement -Clinical Debridement Subcutaneous -Post Debridement Size (cm) - Length 2.4 -Post Debridement Size (cm) - Width 0.3 -Post Debridement Size (cm) - Depth 0.2 -Total Square Cm 0.72 -Wound/Ulcer Outcome Not Healed -Ulcer Cleansing Rinsed/ Irrigated with Saline -Foul Odor after Cleansing No -Bioengineered Tissue No -Bleeding Controlled with Pressure -Treatment Response Procedure Tolerated Well #11- RT HEEL -Time 11:53 -Correct Patient Yes -Correct Side, Site, Position Yes -Correct Procedure Yes -Procedure Performed Yes -Type of Procedure Debridement -Clinical Debridement Subcutaneous -Post Debridement Size (cm) - Length 1.4 -Post Debridement Size (cm) - Width 0.6 -Post Debridement Size (cm) - Depth 0.2 -Total Square Cm 0.84 -Wound/Ulcer Outcome Not Healed -Ulcer Cleansing Rinsed/ Irrigated with Saline -Foul Odor after Cleansing No -Bioengineered Tissue No -Bleeding Controlled with Pressure -Treatment Response Procedure Tolerated Well Pain Scale: 0-10 Numeric Is Patient Pain Free? Yes Wound debrided: Right posterior heel Laterality: Right Type of Debridement: Excisional debridement Anesthesia Used: 4% Lidocaine Solution Depth: in the subcutaneous layer Percentage of wound debrided: 100 Instrument Used: #15 blade, - - Tissue nipper Tissue Removed: Adherent slough, fibrin, hyperkeratotic tissue Severity: Fat Layer Exposed Amount of bleeding with debridement: Mild Bleeding Controlled with: Pressure Patient tolerated procedure well - Additional Wound Wound debrided: Right posterior calf Laterality: Right Type of Debridement: Excisional debridement Anesthesia Used: 4% Lidocaine Solution Depth: in the subcutaneous layer Percentage of wound debrided: 100 Instrument Used: 7mm curette Tissue Removed: Adherent slough, fibrin, hyperkeratotic tissue Severity: Fat Layer Exposed Amount of bleeding with debridement: Mild Bleeding Controlled with: Pressure Patient tolerated procedure: Patient tolerated procedure well Assessment/Plan Assessment: Ulcer to posterior right heel. Plan: Patient was again examined and evaluated in detail today. The ulcer to right calf shows skin bridging. The aforementioned ulcers were both subcutaneously debrided as noted in the clinical panel. The ulcers were then carefully cleansed, and the right posterior heel and calf ulcers were then dressed with chris to the ulcer bases, followed by an offloading dry sterile dressing. The dressing is to be changed in this manner daily by home health. He was instructed to keep these areas offloaded as much as possible in order to help heal the ulcer sites. Patient is in the process of working with [employer] in order to get new offloading bilateral AFO. He was casted last . He is to continue to use his padded offloading boots with heel cut outs in the mean time. He was instructed to continue with a diet high in protein to help optimize ulcer healing. He was educated on all signs and symptoms of local and systemic infection and was instructed to go to the ER immediately should he notice any. All questions were answered to the patient's satisfaction. Patient will follow-up in clinic in 1 week for further treatment and evaluation, or sooner if needed.
--- NOTE | 2018-03-30 14:29 | PN.PCM_ITS ---
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 Status: Acute Current Visit: No Code(s): E11.621 - Type 2 diabetes mellitus with foot ulcer; L97.416 - Non-pressure chronic ulcer of right heel and midfoot with bone involvement without evidence of necrosis (3) Malnutrition Status: Acute Current Visit: No Code(s): E46 - Unspecified protein-calorie malnutrition (4) Delayed wound healing Status: Acute Current Visit: No Code(s): T14.8XXD - Other injury of unspecified body region, subsequent encounter (5) Type 2 diabetes mellitus with diabetic polyneuropathy Status: Acute Current Visit: No Code(s): E11.42 - Type 2 diabetes mellitus with diabetic polyneuropathy (6) Chronic incomplete quadriplegia Status: Acute Current Visit: No Code(s): G82.50 - Quadriplegia, unspecified Type of Wound Chief Complaint: Ulcer on right heel History of Wound: This is a 67-year-old white male who presents to the wound care center today for evaluation of a right heel ulcer. He has a past medical history as described above. The patient states that on the night of 06/06/2017, his heel protectors came off all night in bed and shortly after he noted an ulceration on his right heel and a purplish discoloration on his left heel. He states that there has been yellow drainage coming from his right heel and that yesterday he started using Granulex and Aquacel silver on the right heel. He denies any pain or foul-smelling discharge, however he does state that he has decreased sensation to his lower extremities due to his history of a spinal cord injury in high school. He currently has a suprapubic catheter as well due to his history of recurrent UTIs and obstructive uropathy. He also notes that his low air loss hospital bed is needing to be repaired so he is unable to use this at this time. The patient does state that he has a history of ulcerations on his right heel in the past where he had to be seen at a wound care center and ended up needing to have skin substitutes applied. He does note that he lives home alone and that he receives home health throughout the week. Patient was then referred to Dr. Gan at his office, who subsequently admitted the patient on Jul 04, for IV antibiotics and evaluation by ID. Infectious disease planned to d/c patient home on doxy 100mg bid, amoxicillin 500mg tid, and flagyl 500mg tid for planned 6 week course. He has since discharge been receiving daily dressing changes consisting of aquacel ag and a dry sterile dressing as well as wearing his PRAFO boots at all times. He otherwise denies any signs of systemic infection and denies any fever, chills, nausea, vomiting, chest pain or pressure, syncope or presyncopal episodes. Progress of Wound: Patient returns to wound healing center this week for continued treatment of right heel ulcer and right posterior calf ulcer. Patient continues to wear offloading padded boots with heel cut outs over the last week. Patient had daily chris dressing changes. Patient is in the process of working with [employer] to get new custom offloading braces. He was casted last . He denies any purulence to the area. Ulcer sites remain stable. He denies any feeling of nausea, vomiting, fever, or chills currently. - Physical Exam Vital Signs Temp Pulse Resp BP 96.8 F L 71 18 112/62 03/30/18 11:06 03/30/18 11:06 03/30/18 11:06 03/30/18 11:06 General: Alert, Oriented x3, Cooperative, No apparent distress Extremities: Capillary Refill Less than 3 Seconds, No Calf Tenderness - Negative Sarah Beth and Pretty sign, Diminished Peripheral Pulses Skin: Ulcer/ Wound - Ulcer to right posterior heel with fat layer exposed. Measurements are noted below. Ulcer to right heel is stable this week. Ulcer to right posterior calf appears improved with skin bridging appreciated in the center of the ulcer site. The bases of each site continue to be a mixture of adherent slough, fibrin, granular tissue as well as some surrounding hyperkeratotic tissue. Ulcer to right heel is close to the calcaneus. There continues to be no malodor, no purulence, no extending cellulitis, no increase in warmth. Wound Measurements and Assessment WC - Nurse 1 - General Ulcer Measurement Start: 03/23/18 11:00 Freq: Status: Active Protocol: Activity Type Activity Date Activity User E-Sign Co-Sign Detail Recorded Client Recorded Date Recorded By Document 03/30/18 11:06 RB [id number] 03/30/18 11:14 RB 03/30/18 11:06 Wound Center Nurse 1 [Ulcer Assessment] #12 R Post LE -Combined with other wound No -Current Size (cm) - Length 1.3 -Current Size (cm) - Width 0.5 -Current Size (cm) - Depth 0.3 -Total Square Cm 0.65 -Tunneling No -Undermining/Tunneling No -Circular Undermining No -Classification - Thickness Full Thickness without Exposed Support Structure -Exudate Amt Small (1-33%) -Exudate Type Serosanguineous -Wound Margin Distinct, Outline Attached -Granulation Amt Medium (34-66%) -Granulation Quality [place] -Slough/Fibrin Yes -Necrosis Amt Medium (34-66%) -Necrotic Tissue Type Adherent Slough -Structure Exposed N/A -Texture (Francia-wound Skin Appearance) Assessed Friable -Moisture (Francia-wound Skin Appearance Assessed ) -Color (Francia-wound Skin Appearance) Assessed -Temperature (Francia-wound Skin No Abnormality Appearance) (Pt Warm) -Tenderness on Palpation (Francia-wound No Skin Appearance) -Ulcer Cleansing Rinsed/ Irrigated with Saline -Foul Odor after Cleansing No -Anesthetic Used 4% Lidocaine Solution #11- RT HEEL -Combined with other wound No -Current Size (cm) - Length 2.2 -Current Size (cm) - Width 0.4 -Current Size (cm) - Depth 0.3 -Total Square Cm 0.88 -Photo Taken No -Tunneling No -Circular Undermining No -Classification - Thickness Full Thickness without Exposed Support Structure -Exudate Amt Small (1-33%) -Exudate Type Serosanguineous -Wound Margin Distinct, Outline Attached -Granulation Amt Medium (34-66%) -Granulation Quality [place] -Slough/Fibrin Yes -Necrosis Amt Medium (34-66%) -Necrotic Tissue Type Adherent Slough -Structure Exposed N/A -Texture (Francia-wound Skin Appearance) Assessed Friable -Moisture (Francia-wound Skin Appearance Assessed ) -Color (Francia-wound Skin Appearance) Assessed -Temperature (Francia-wound Skin No Abnormality Appearance) (Pt Warm) -Tenderness on Palpation (Francia-wound No Skin Appearance) -Ulcer Cleansing Rinsed/ Irrigated with Saline -Foul Odor after Cleansing No -Anesthetic Used 4% Lidocaine Solution CHANTELLE - Nurse 2 - General Ulcer CM Notes Start: 03/23/18 11:00 Freq: Status: Active Protocol: Activity Type Activity Date Activity User E-Sign Co-Sign Detail Recorded Client Recorded Date Recorded By Document 03/30/18 11:52 DV [id number] 03/30/18 11:54 DV 03/30/18 11:52 Wound Center Nurse 2 [Procedure/Treatment] #12 R Post LE -Time 11:52 -Correct Patient Yes -Correct Side, Site, Position Yes -Correct Procedure Yes -Procedure Performed Yes -Type of Procedure Debridement -Clinical Debridement Subcutaneous -Post Debridement Size (cm) - Length 2.4 -Post Debridement Size (cm) - Width 0.3 -Post Debridement Size (cm) - Depth 0.2 -Total Square Cm 0.72 -Wound/Ulcer Outcome Not Healed -Ulcer Cleansing Rinsed/ Irrigated with Saline -Foul Odor after Cleansing No -Bioengineered Tissue No -Bleeding Controlled with Pressure -Treatment Response Procedure Tolerated Well #11- RT HEEL -Time 11:53 -Correct Patient Yes -Correct Side, Site, Position Yes -Correct Procedure Yes -Procedure Performed Yes -Type of Procedure Debridement -Clinical Debridement Subcutaneous -Post Debridement Size (cm) - Length 1.4 -Post Debridement Size (cm) - Width 0.6 -Post Debridement Size (cm) - Depth 0.2 -Total Square Cm 0.84 -Wound/Ulcer Outcome Not Healed -Ulcer Cleansing Rinsed/ Irrigated with Saline -Foul Odor after Cleansing No -Bioengineered Tissue No -Bleeding Controlled with Pressure -Treatment Response Procedure Tolerated Well [See Physician Procedure note for Specifics] Pain Scale: 0-10 Numeric [Pain] -Is Patient Pain Free? Yes Musculoskeletal: No Tenderness to Palpation of Joints or Extremities, Muscle Wasting Neurological: - - Patient is an incomplete quadriplegic with very slight sensation in some areas throughout the lower extremity Psych/Mental Status: Normal Affect, Appropriate Debridement Note Post-Debridement Measurements/Treatment CHANTELLE - Nurse 2 - General Ulcer CM Notes Start: 03/23/18 11:00 Freq: Status: Active Protocol: Activity Type Activity Date Activity User E-Sign Co-Sign Detail Recorded Client Recorded Date Recorded By Document 03/30/18 11:52 DV [id number] 03/30/18 11:54 DV 03/30/18 11:52 Wound Center Nurse 2 #12 R Post LE -Time 11:52 -Correct Patient Yes -Correct Side, Site, Position Yes -Correct Procedure Yes -Procedure Performed Yes -Type of Procedure Debridement -Clinical Debridement Subcutaneous -Post Debridement Size (cm) - Length 2.4 -Post Debridement Size (cm) - Width 0.3 -Post Debridement Size (cm) - Depth 0.2 -Total Square Cm 0.72 -Wound/Ulcer Outcome Not Healed -Ulcer Cleansing Rinsed/ Irrigated with Saline -Foul Odor after Cleansing No -Bioengineered Tissue No -Bleeding Controlled with Pressure -Treatment Response Procedure Tolerated Well #11- RT HEEL -Time 11:53 -Correct Patient Yes -Correct Side, Site, Position Yes -Correct Procedure Yes -Procedure Performed Yes -Type of Procedure Debridement -Clinical Debridement Subcutaneous -Post Debridement Size (cm) - Length 1.4 -Post Debridement Size (cm) - Width 0.6 -Post Debridement Size (cm) - Depth 0.2 -Total Square Cm 0.84 -Wound/Ulcer Outcome Not Healed -Ulcer Cleansing Rinsed/ Irrigated with Saline -Foul Odor after Cleansing No -Bioengineered Tissue No -Bleeding Controlled with Pressure -Treatment Response Procedure Tolerated Well Pain Scale: 0-10 Numeric Is Patient Pain Free? Yes Wound debrided: Right posterior heel Laterality: Right Type of Debridement: Excisional debridement Anesthesia Used: 4% Lidocaine Solution Depth: in the subcutaneous layer Percentage of wound debrided: 100 Instrument Used: #15 blade, - - Tissue nipper Tissue Removed: Adherent slough, fibrin, hyperkeratotic tissue Severity: Fat Layer Exposed Amount of bleeding with debridement: Mild Bleeding Controlled with: Pressure Patient tolerated procedure well - Additional Wound Wound debrided: Right posterior calf Laterality: Right Type of Debridement: Excisional debridement Anesthesia Used: 4% Lidocaine Solution Depth: in the subcutaneous layer Percentage of wound debrided: 100 Instrument Used: 7mm curette Tissue Removed: Adherent slough, fibrin, hyperkeratotic tissue Severity: Fat Layer Exposed Amount of bleeding with debridement: Mild Bleeding Controlled with: Pressure Patient tolerated procedure: Patient tolerated procedure well Assessment/Plan Assessment: Ulcer to posterior right heel. Plan: Patient was again examined and evaluated in detail today. The ulcer to right calf shows skin bridging. The aforementioned ulcers were both subcutaneously debrided as noted in the clinical panel. The ulcers were then carefully cleansed, and the right posterior heel and calf ulcers were then dressed with chris to the ulcer bases, followed by an offloading dry sterile dressing. The dressing is to be changed in this manner daily by home health. He was instructed to keep these areas offloaded as much as possible in order to help heal the ulcer sites. Patient is in the process of working with [employer] in order to get new offloading bilateral AFO. He was casted last . He is to continue to use his padded offloading boots with heel cut outs in the mean time. He was instructed to continue with a diet high in protein to help optimize ulcer healing. He was educated on all signs and symptoms of local and systemic infection and was instructed to go to the ER immediately should he notice any. All questions were answered to the patient's satisfaction. Patient will follow- up in clinic in 1 week for further treatment and evaluation, or sooner if needed.
[2018-04-06 10:43] VITALS: RESP 18; TEMP 36; BMI 26.6
--- NOTE | 2018-04-06 11:46 | PCM.WC.PN ---
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 Status: Acute Current Visit: No Code(s): E11.621 - Type 2 diabetes mellitus with foot ulcer; L97.416 - Non-pressure chronic ulcer of right heel and midfoot with bone involvement without evidence of necrosis (3) Malnutrition Status: Acute Current Visit: No Code(s): E46 - Unspecified protein-calorie malnutrition (4) Delayed wound healing Status: Acute Current Visit: No Code(s): T14.8XXD - Other injury of unspecified body region, subsequent encounter (5) Type 2 diabetes mellitus with diabetic polyneuropathy Status: Acute Current Visit: No Code(s): E11.42 - Type 2 diabetes mellitus with diabetic polyneuropathy (6) Chronic incomplete quadriplegia Status: Acute Current Visit: No Code(s): G82.50 - Quadriplegia, unspecified Type of Wound Chief Complaint: Ulcer on right heel History of Wound: This is a 67-year-old white male who presents to the wound care center today for evaluation of a right heel ulcer. He has a past medical history as described above. The patient states that on the night of 06/06/2017, his heel protectors came off all night in bed and shortly after he noted an ulceration on his right heel and a purplish discoloration on his left heel. He states that there has been yellow drainage coming from his right heel and that yesterday he started using Granulex and Aquacel silver on the right heel. He denies any pain or foul-smelling discharge, however he does state that he has decreased sensation to his lower extremities due to his history of a spinal cord injury in high school. He currently has a suprapubic catheter as well due to his history of recurrent UTIs and obstructive uropathy. He also notes that his low air loss hospital bed is needing to be repaired so he is unable to use this at this time. The patient does state that he has a history of ulcerations on his right heel in the past where he had to be seen at a wound care center and ended up needing to have skin substitutes applied. He does note that he lives home alone and that he receives home health throughout the week. Patient was then referred to Dr. Gan at his office, who subsequently admitted the patient on Jul 04, for IV antibiotics and evaluation by ID. Infectious disease planned to d/c patient home on doxy 100mg bid, amoxicillin 500mg tid, and flagyl 500mg tid for planned 6 week course. He has since discharge been receiving daily dressing changes consisting of aquacel ag and a dry sterile dressing as well as wearing his PRAFO boots at all times. He otherwise denies any signs of systemic infection and denies any fever, chills, nausea, vomiting, chest pain or pressure, syncope or presyncopal episodes. Progress of Wound: Patient returns to wound healing center this week for continued treatment of right heel ulcer and right posterior calf ulcer. Patient continues to wear offloading padded boots with heel cut outs over the last week. Patient had daily chris dressing changes. Patient is in the process of working with [employer] to get new custom offloading braces. He was casted already. He denies any purulence to the areas. He denies any feelings of nausea, vomiting, fever, or chills currently. - Physical Exam Vital Signs Temp Pulse Resp BP 96.8 F L 71 18 112/62 04/06/18 10:43 03/30/18 11:06 04/06/18 10:43 03/30/18 11:06 General: Alert, Oriented x3, Cooperative, No apparent distress Extremities: Capillary Refill Less than 3 Seconds, No Calf Tenderness - Negative Sarah Beth and Pretty sign, Diminished Peripheral Pulses Skin: Ulcer/ Wound - Ulcer to right posterior heel with fat layer exposed. Measurements are noted below. Ulcer increased in size this week. Ulcer base remains close to calcaneus. The base of the ulcer site is noted to be a mixture of adherent slough, fibrin, granular tissue as well as some surrounding hyperkeratotic tissue. There is no malodor, no purulence, no extending or surrounding cellulitis, and no increase in warmth to the site at this time. Ulcer also noted to right posterior calf that continues to show improvement. The base is a mixture of adherent slough, fibrin, granular tissue as well as some surrounding hyperkeratotic tissue. There is no malodor, no purulence, no cellulitis, no increase in warmth, no probing, no tracking, and no undermining. Wound Measurements and Assessment WC - Nurse 1 - General Ulcer Measurement Start: 03/23/18 11:00 Freq: Status: Active Protocol: Activity Type Activity Date Activity User E-Sign Co-Sign Detail Recorded Client Recorded Date Recorded By Document 04/06/18 10:43 [facility] [id number] 04/06/18 10:54 [facility] 04/06/18 10:43 Wound Center Nurse 1 [Ulcer Assessment] #12 R Post LE -Combined with other wound No -Current Size (cm) - Length 2.7 -Current Size (cm) - Width 0.7 -Current Size (cm) - Depth 0.2 -Total Square Cm 1.89 -Photo Taken No -Tunneling No -Undermining/Tunneling No -Circular Undermining No -Exudate Amt Small (1-33%) -Exudate Type Serosanguineous -Wound Margin Thickened & Rolled Under -Granulation Amt Medium (34-66%) -Granulation Quality [place] Red -Necrosis Amt Small (1-33%) -Necrotic Tissue Type Adherent Slough -Structure Exposed N/A -Texture (Francia-wound Skin Appearance) Excoriation Rash -Moisture (Francia-wound Skin Appearance Assessed ) -Color (Francia-wound Skin Appearance) Assessed -Temperature (Francia-wound Skin No Abnormality Appearance) (Pt Warm) -Tenderness on Palpation (Francia-wound No Skin Appearance) -Ulcer Cleansing Rinsed/ Irrigated with Saline -Foul Odor after Cleansing No -Anesthetic Used 4% Lidocaine Solution #11- RT HEEL -Combined with other wound No -Current Size (cm) - Length 1.8 -Current Size (cm) - Width 1 -Current Size (cm) - Depth 0.3 -Total Square Cm 1.8 -Photo Taken No -Tunneling No -Undermining/Tunneling Yes -Undermining/Tunneling Starts (O' 1 clock) -Undermining/Tunneling Ends (O'clock) 2 -Maximum Distance (cm) 0.3 -Circular Undermining No -Exudate Amt Small (1-33%) -Exudate Type Serosanguineous -Wound Margin Distinct, Outline Attached -Granulation Amt Medium (34-66%) -Granulation Quality [place] -Slough/Fibrin No -Necrosis Amt Small (1-33%) -Necrotic Tissue Type Adherent Slough -Structure Exposed N/A -Texture (Francia-wound Skin Appearance) Assessed -Moisture (Francia-wound Skin Appearance Assessed ) -Color (Francia-wound Skin Appearance) Assessed -Temperature (Francia-wound Skin No Abnormality Appearance) (Pt Warm) -Tenderness on Palpation (Francia-wound No Skin Appearance) -Ulcer Cleansing Rinsed/ Irrigated with Saline -Foul Odor after Cleansing No -Anesthetic Used 4% Lidocaine Solution WC - Nurse 2 - General Ulcer CM Notes Start: 03/23/18 11:00 Freq: Status: Active Protocol: Activity Type Activity Date Activity User E-Sign Co-Sign Detail Recorded Client Recorded Date Recorded By Document 04/06/18 11:09 DV [id number] 04/06/18 11:21 DV 04/06/18 11:09 Wound Center Nurse 2 [Procedure/Treatment] #12 R Post LE -Time 11:10 -Correct Patient Yes -Correct Side, Site, Position Yes -Correct Procedure Yes -Procedure Performed Yes -Type of Procedure Debridement -Clinical Debridement Subcutaneous -Post Debridement Size (cm) - Length 2.5 -Post Debridement Size (cm) - Width 1.8 -Post Debridement Size (cm) - Depth 0.2 -Total Square Cm 4.50 -Wound/Ulcer Outcome Not Healed -Ulcer Cleansing Rinsed/ Irrigated with Saline -Foul Odor after Cleansing No -Bioengineered Tissue No -Bleeding Controlled with Pressure -Treatment Response Procedure Tolerated Well #11- RT HEEL -Time 11:16 -Correct Patient Yes -Correct Side, Site, Position Yes -Correct Procedure Yes -Procedure Performed Yes -Type of Procedure Debridement -Clinical Debridement Subcutaneous -Post Debridement Size (cm) - Length 2.5 -Post Debridement Size (cm) - Width 1.8 -Post Debridement Size (cm) - Depth 0.2 -Total Square Cm 4.50 -Wound/Ulcer Outcome Not Healed -Ulcer Cleansing Rinsed/ Irrigated with Saline -Foul Odor after Cleansing No -Bioengineered Tissue No -Bleeding Controlled with Pressure -Treatment Response Procedure Tolerated Well [See Physician Procedure note for Specifics] Pain Scale: 0-10 Numeric [Pain] -Is Patient Pain Free? Yes Musculoskeletal: No Tenderness to Palpation of Joints or Extremities, Muscle Wasting Neurological: - - Patient is an incomplete quadriplegic with very slight sensation in some areas throughout the lower extremity Psych/Mental Status: Normal Affect, Appropriate Debridement Note Post-Debridement Measurements/Treatment WC - Nurse 2 - General Ulcer CM Notes Start: 03/23/18 11:00 Freq: Status: Active Protocol: Activity Type Activity Date Activity User E-Sign Co-Sign Detail Recorded Client Recorded Date Recorded By Document 03/30/18 11:52 DV [id number] 03/30/18 11:54 DV Document 04/06/18 11:09 DV [id number] 04/06/18 11:21 DV 03/30/18 04/06/18 11:52 11:09 Wound Center Nurse 2 #12 R Post LE -Time 11:52 11:10 -Correct Patient Yes Yes -Correct Side, Site, Position Yes Yes -Correct Procedure Yes Yes -Procedure Performed Yes Yes -Type of Procedure Debridement Debridement -Clinical Debridement Subcutaneous Subcutaneous -Post Debridement Size (cm) - Length 2.4 2.5 -Post Debridement Size (cm) - Width 0.3 1.8 -Post Debridement Size (cm) - Depth 0.2 0.2 -Total Square Cm 0.72 4.50 -Wound/Ulcer Outcome Not Healed Not Healed -Ulcer Cleansing Rinsed/ Rinsed/ Irrigated with Irrigated with Saline Saline -Foul Odor after Cleansing No No -Bioengineered Tissue No No -Bleeding Controlled with Pressure Pressure -Treatment Response Procedure Procedure Tolerated Well Tolerated Well #11- RT HEEL -Time 11:53 11:16 -Correct Patient Yes Yes -Correct Side, Site, Position Yes Yes -Correct Procedure Yes Yes -Procedure Performed Yes Yes -Type of Procedure Debridement Debridement -Clinical Debridement Subcutaneous Subcutaneous -Post Debridement Size (cm) - Length 1.4 2.5 -Post Debridement Size (cm) - Width 0.6 1.8 -Post Debridement Size (cm) - Depth 0.2 0.2 -Total Square Cm 0.84 4.50 -Wound/Ulcer Outcome Not Healed Not Healed -Ulcer Cleansing Rinsed/ Rinsed/ Irrigated with Irrigated with Saline Saline -Foul Odor after Cleansing No No -Bioengineered Tissue No No -Bleeding Controlled with Pressure Pressure -Treatment Response Procedure Procedure Tolerated Well Tolerated Well Pain Scale: 0-10 Numeric Is Patient Pain Free? Yes Yes Wound debrided: Right posterior heel Laterality: Right Type of Debridement: Excisional debridement Anesthesia Used: 4% Lidocaine Solution Depth: in the subcutaneous layer Percentage of wound debrided: 100 Instrument Used: #15 blade, - - Tissue nipper Tissue Removed: Adherent slough, fibrin, hyperkeratotic tissue Severity: Fat Layer Exposed Amount of bleeding with debridement: Mild Bleeding Controlled with: Pressure Patient tolerated procedure well - Additional Wound Wound debrided: Right posterior calf Laterality: Right Type of Debridement: Excisional debridement Anesthesia Used: 4% Lidocaine Solution Depth: in the subcutaneous layer Percentage of wound debrided: 100 Instrument Used: 7mm curette Tissue Removed: Adherent slough, fibrin, hyperkeratotic tissue Severity: Fat Layer Exposed Amount of bleeding with debridement: Mild Bleeding Controlled with: Pressure Patient tolerated procedure: Patient tolerated procedure well Assessment/Plan Assessment: Ulcer to posterior right heel. Plan: Patient was again examined and evaluated in detail today. The ulcer to right calf shows continued skin bridging. Right heel has increased in size. The aforementioned ulcers were both subcutaneously debrided as noted in the clinical panel. The ulcers were then carefully cleansed, and the right posterior heel and calf ulcers were then dressed with chris to the ulcer bases, followed by an offloading dry sterile dressing. The dressing is to be changed in this manner daily by home health. He was instructed to keep these areas offloaded as much as possible in order to help heal the ulcer sites. Patient is in the process of working with [employer] in order to get new offloading bilateral AFO. He was already casted. We will call to check on progress and to see if we can speed anything up. He is to continue to use his padded offloading boots with heel cut outs in the mean time. He was instructed to continue with a diet high in protein to help optimize ulcer healing. He was educated on all signs and symptoms of local and systemic infection and was instructed to go to the ER immediately should he notice any. All questions were answered to the patient's satisfaction. Patient will follow-up in clinic in 2 weeks for further treatment and evaluation, or sooner if needed.
--- NOTE | 2018-04-06 11:51 | PN.PCM_ITS ---
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 Status: Acute Current Visit: No Code(s): E11.621 - Type 2 diabetes mellitus with foot ulcer; L97.416 - Non-pressure chronic ulcer of right heel and midfoot with bone involvement without evidence of necrosis (3) Malnutrition Status: Acute Current Visit: No Code(s): E46 - Unspecified protein-calorie malnutrition (4) Delayed wound healing Status: Acute Current Visit: No Code(s): T14.8XXD - Other injury of unspecified body region, subsequent encounter (5) Type 2 diabetes mellitus with diabetic polyneuropathy Status: Acute Current Visit: No Code(s): E11.42 - Type 2 diabetes mellitus with diabetic polyneuropathy (6) Chronic incomplete quadriplegia Status: Acute Current Visit: No Code(s): G82.50 - Quadriplegia, unspecified Type of Wound Chief Complaint: Ulcer on right heel History of Wound: This is a 67-year-old white male who presents to the wound care center today for evaluation of a right heel ulcer. He has a past medical history as described above. The patient states that on the night of 06/06/2017, his heel protectors came off all night in bed and shortly after he noted an ulceration on his right heel and a purplish discoloration on his left heel. He states that there has been yellow drainage coming from his right heel and that yesterday he started using Granulex and Aquacel silver on the right heel. He denies any pain or foul-smelling discharge, however he does state that he has decreased sensation to his lower extremities due to his history of a spinal cord injury in high school. He currently has a suprapubic catheter as well due to his history of recurrent UTIs and obstructive uropathy. He also notes that his low air loss hospital bed is needing to be repaired so he is unable to use this at this time. The patient does state that he has a history of ulcerations on his right heel in the past where he had to be seen at a wound care center and ended up needing to have skin substitutes applied. He does note that he lives home alone and that he receives home health throughout the week. Patient was then referred to Dr. Gan at his office, who subsequently admitted the patient on Jul 04, for IV antibiotics and evaluation by ID. Infectious disease planned to d/c patient home on doxy 100mg bid, amoxicillin 500mg tid, and flagyl 500mg tid for planned 6 week course. He has since discharge been receiving daily dressing changes consisting of aquacel ag and a dry sterile dressing as well as wearing his PRAFO boots at all times. He otherwise denies any signs of systemic infection and denies any fever, chills, nausea, vomiting, chest pain or pressure, syncope or presyncopal episodes. Progress of Wound: Patient returns to wound healing center this week for continued treatment of right heel ulcer and right posterior calf ulcer. Patient continues to wear offloading padded boots with heel cut outs over the last week. Patient had daily chris dressing changes. Patient is in the process of working with [employer] to get new custom offloading braces. He was casted already. He denies any purulence to the areas. He denies any feelings of nausea, vomiting, fever, or chills currently. - Physical Exam Vital Signs Temp Pulse Resp BP 96.8 F L 71 18 112/62 04/06/18 10:43 03/30/18 11:06 04/06/18 10:43 03/30/18 11:06 General: Alert, Oriented x3, Cooperative, No apparent distress Extremities: Capillary Refill Less than 3 Seconds, No Calf Tenderness - Negative Sarah Beth and Pretty sign, Diminished Peripheral Pulses Skin: Ulcer/ Wound - Ulcer to right posterior heel with fat layer exposed. Measurements are noted below. Ulcer increased in size this week. Ulcer base remains close to calcaneus. The base of the ulcer site is noted to be a mixture of adherent slough, fibrin, granular tissue as well as some surrounding hyperkeratotic tissue. There is no malodor, no purulence, no extending or surrounding cellulitis, and no increase in warmth to the site at this time. Ulcer also noted to right posterior calf that continues to show improvement. The base is a mixture of adherent slough, fibrin, granular tissue as well as some surrounding hyperkeratotic tissue. There is no malodor, no purulence, no cellulitis, no increase in warmth, no probing, no tracking, and no undermining. Wound Measurements and Assessment WC - Nurse 1 - General Ulcer Measurement Start: 03/23/18 11:00 Freq: Status: Active Protocol: Activity Type Activity Date Activity User E-Sign Co-Sign Detail Recorded Client Recorded Date Recorded By Document 04/06/18 10:43 [facility] [id number] 04/06/18 10:54 [facility] 04/06/18 10:43 Wound Center Nurse 1 [Ulcer Assessment] #12 R Post LE -Combined with other wound No -Current Size (cm) - Length 2.7 -Current Size (cm) - Width 0.7 -Current Size (cm) - Depth 0.2 -Total Square Cm 1.89 -Photo Taken No -Tunneling No -Undermining/Tunneling No -Circular Undermining No -Exudate Amt Small (1-33%) -Exudate Type Serosanguineous -Wound Margin Thickened & Rolled Under -Granulation Amt Medium (34-66%) -Granulation Quality [employer] Red -Necrosis Amt Small (1-33%) -Necrotic Tissue Type Adherent Slough -Structure Exposed N/A -Texture (Francia-wound Skin Appearance) Excoriation Rash -Moisture (Francia-wound Skin Appearance Assessed ) -Color (Francia-wound Skin Appearance) Assessed -Temperature (Francia-wound Skin No Abnormality Appearance) (Pt Warm) -Tenderness on Palpation (Francia-wound No Skin Appearance) -Ulcer Cleansing Rinsed/ Irrigated with Saline -Foul Odor after Cleansing No -Anesthetic Used 4% Lidocaine Solution #11- RT HEEL -Combined with other wound No -Current Size (cm) - Length 1.8 -Current Size (cm) - Width 1 -Current Size (cm) - Depth 0.3 -Total Square Cm 1.8 -Photo Taken No -Tunneling No -Undermining/Tunneling Yes -Undermining/Tunneling Starts (O' 1 clock) -Undermining/Tunneling Ends (O'clock) 2 -Maximum Distance (cm) 0.3 -Circular Undermining No -Exudate Amt Small (1-33%) -Exudate Type Serosanguineous -Wound Margin Distinct, Outline Attached -Granulation Amt Medium (34-66%) -Granulation Quality [employer] -Slough/Fibrin No -Necrosis Amt Small (1-33%) -Necrotic Tissue Type Adherent Slough -Structure Exposed N/A -Texture (Francia-wound Skin Appearance) Assessed -Moisture (Francia-wound Skin Appearance Assessed ) -Color (Francia-wound Skin Appearance) Assessed -Temperature (Francia-wound Skin No Abnormality Appearance) (Pt Warm) -Tenderness on Palpation (Francia-wound No Skin Appearance) -Ulcer Cleansing Rinsed/ Irrigated with Saline -Foul Odor after Cleansing No -Anesthetic Used 4% Lidocaine Solution WC - Nurse 2 - General Ulcer CM Notes Start: 03/23/18 11:00 Freq: Status: Active Protocol: Activity Type Activity Date Activity User E-Sign Co-Sign Detail Recorded Client Recorded Date Recorded By Document 04/06/18 11:09 DV [id number] 04/06/18 11:21 DV 04/06/18 11:09 Wound Center Nurse 2 [Procedure/Treatment] #12 R Post LE -Time 11:10 -Correct Patient Yes -Correct Side, Site, Position Yes -Correct Procedure Yes -Procedure Performed Yes -Type of Procedure Debridement -Clinical Debridement Subcutaneous -Post Debridement Size (cm) - Length 2.5 -Post Debridement Size (cm) - Width 1.8 -Post Debridement Size (cm) - Depth 0.2 -Total Square Cm 4.50 -Wound/Ulcer Outcome Not Healed -Ulcer Cleansing Rinsed/ Irrigated with Saline -Foul Odor after Cleansing No -Bioengineered Tissue No -Bleeding Controlled with Pressure -Treatment Response Procedure Tolerated Well #11- RT HEEL -Time 11:16 -Correct Patient Yes -Correct Side, Site, Position Yes -Correct Procedure Yes -Procedure Performed Yes -Type of Procedure Debridement -Clinical Debridement Subcutaneous -Post Debridement Size (cm) - Length 2.5 -Post Debridement Size (cm) - Width 1.8 -Post Debridement Size (cm) - Depth 0.2 -Total Square Cm 4.50 -Wound/Ulcer Outcome Not Healed -Ulcer Cleansing Rinsed/ Irrigated with Saline -Foul Odor after Cleansing No -Bioengineered Tissue No -Bleeding Controlled with Pressure -Treatment Response Procedure Tolerated Well [See Physician Procedure note for Specifics] Pain Scale: 0-10 Numeric [Pain] -Is Patient Pain Free? Yes Musculoskeletal: No Tenderness to Palpation of Joints or Extremities, Muscle Wasting Neurological: - - Patient is an incomplete quadriplegic with very slight sensation in some areas throughout the lower extremity Psych/Mental Status: Normal Affect, Appropriate Debridement Note Post-Debridement Measurements/Treatment WC - Nurse 2 - General Ulcer CM Notes Start: 03/23/18 11:00 Freq: Status: Active Protocol: Activity Type Activity Date Activity User E-Sign Co-Sign Detail Recorded Client Recorded Date Recorded By Document 03/30/18 11:52 DV [id number] 03/30/18 11:54 DV Document 04/06/18 11:09 DV [id number] 04/06/18 11:21 DV 03/30/18 04/06/18 11:52 11:09 Wound Center Nurse 2 #12 R Post LE -Time 11:52 11:10 -Correct Patient Yes Yes -Correct Side, Site, Position Yes Yes -Correct Procedure Yes Yes -Procedure Performed Yes Yes -Type of Procedure Debridement Debridement -Clinical Debridement Subcutaneous Subcutaneous -Post Debridement Size (cm) - Length 2.4 2.5 -Post Debridement Size (cm) - Width 0.3 1.8 -Post Debridement Size (cm) - Depth 0.2 0.2 -Total Square Cm 0.72 4.50 -Wound/Ulcer Outcome Not Healed Not Healed -Ulcer Cleansing Rinsed/ Rinsed/ Irrigated with Irrigated with Saline Saline -Foul Odor after Cleansing No No -Bioengineered Tissue No No -Bleeding Controlled with Pressure Pressure -Treatment Response Procedure Procedure Tolerated Well Tolerated Well #11- RT HEEL -Time 11:53 11:16 -Correct Patient Yes Yes -Correct Side, Site, Position Yes Yes -Correct Procedure Yes Yes -Procedure Performed Yes Yes -Type of Procedure Debridement Debridement -Clinical Debridement Subcutaneous Subcutaneous -Post Debridement Size (cm) - Length 1.4 2.5 -Post Debridement Size (cm) - Width 0.6 1.8 -Post Debridement Size (cm) - Depth 0.2 0.2 -Total Square Cm 0.84 4.50 -Wound/Ulcer Outcome Not Healed Not Healed -Ulcer Cleansing Rinsed/ Rinsed/ Irrigated with Irrigated with Saline Saline -Foul Odor after Cleansing No No -Bioengineered Tissue No No -Bleeding Controlled with Pressure Pressure -Treatment Response Procedure Procedure Tolerated Well Tolerated Well Pain Scale: 0-10 Numeric Is Patient Pain Free? Yes Yes Wound debrided: Right posterior heel Laterality: Right Type of Debridement: Excisional debridement Anesthesia Used: 4% Lidocaine Solution Depth: in the subcutaneous layer Percentage of wound debrided: 100 Instrument Used: #15 blade, - - Tissue nipper Tissue Removed: Adherent slough, fibrin, hyperkeratotic tissue Severity: Fat Layer Exposed Amount of bleeding with debridement: Mild Bleeding Controlled with: Pressure Patient tolerated procedure well - Additional Wound Wound debrided: Right posterior calf Laterality: Right Type of Debridement: Excisional debridement Anesthesia Used: 4% Lidocaine Solution Depth: in the subcutaneous layer Percentage of wound debrided: 100 Instrument Used: 7mm curette Tissue Removed: Adherent slough, fibrin, hyperkeratotic tissue Severity: Fat Layer Exposed Amount of bleeding with debridement: Mild Bleeding Controlled with: Pressure Patient tolerated procedure: Patient tolerated procedure well Assessment/Plan Assessment: Ulcer to posterior right heel. Plan: Patient was again examined and evaluated in detail today. The ulcer to right calf shows continued skin bridging. Right heel has increased in size. The aforementioned ulcers were both subcutaneously debrided as noted in the clinical panel. The ulcers were then carefully cleansed, and the right posterior heel and calf ulcers were then dressed with chris to the ulcer bases, followed by an offloading dry sterile dressing. The dressing is to be changed in this manner daily by home health. He was instructed to keep these areas offloaded as much as possible in order to help heal the ulcer sites. Patient is in the process of working with [employer] in order to get new offloading bilateral AFO. He was already casted. We will call to check on progress and to see if we can speed anything up. He is to continue to use his padded offloading boots with heel cut outs in the mean time. He was instructed to continue with a diet high in protein to help optimize ulcer healing. He was educated on all signs and symptoms of local and systemic infection and was instructed to go to the ER immediately should he notice any. All questions were answered to the patient's satisfaction. Patient will follow-up in clinic in 2 weeks for further treatment and evaluation, or sooner if needed.
== END 2018-04-21 23:59 ==
LOC: WC 11:00
PROVIDERS: Visit Provider Podiatrist
DX: E11.622 Type 2 diabetes mellitus with other skin ulcer (principal); E11.42 Type 2 diabetes mellitus with diabetic polyneuropathy; E11.621 Type 2 diabetes mellitus with foot ulcer; G82.50 Quadriplegia, unspecified; L97.412 Non-pressure chronic ulcer of right heel and midfoot with fat layer exposed; L97.212 Non-pressure chronic ulcer of right calf with fat layer exposed
CPT/HCPCS: 11042

== ENCOUNTER → 2018-09-14 14:14 | Outpatient (CLI) | payer MEDICARE, OTHER, SELFPAY | PROVIDERS: Family Provider Student in an Organized Health Care Education/Training Program; PCP Student in an Organized Health Care Education/Training Program; Referring Provider Surgery; Visit Provider Surgery | DX: Z45.2 Encounter for adjustment and management of vascular access device (principal) | CPT/HCPCS: 96523; A4216 ==

== ENCOUNTER 2018-10-02 08:43 | Outpatient (RCR) | payer MEDICARE, OTHER, SELFPAY ==
[2018-09-28 13:16] VITALS: BMI 28.1
[2018-10-02 09:05] VITALS: BP 125/68; PULSE 67; RESP 18; TEMP 36.6; BMI 28.1
--- NOTE | 2018-10-02 13:04 | PCM.WC.PN ---
Type of Wound Date of Service: 10/02/18 Chief Complaint: Right ischial pressure sore, Stage II. History of Wound: Patient is known to me from a previous complex left ischial/perineal pressure sore that necessitated multiple muscle flaps for reconstruction who presented today with a right ischial pressure sore that has him concerned because his nurse thought there was a firm mass in the area. He denies fever. He denies any trauma. He is also being treated by Podiatry for a heel ulcer. Progress of Wound: Stable. - Physical Exam Vital Signs Temp Pulse Resp BP 97.8 F 67 18 125/68 H 10/02/18 09:05 10/02/18 09:05 10/02/18 09:05 10/02/18 09:05 Wound Measurements and Assessment WC - Nurse 1 - General Ulcer Measurement Start: 10/02/18 09:31 Freq: Status: Active Protocol: Activity Type Activity Date Activity User E-Sign Co-Sign Detail Recorded Client Recorded Date Recorded By Document 10/02/18 09:05 MW [id number] 10/02/18 12:22 MW 10/02/18 09:05 Wound Center Nurse 1 [Ulcer Assessment] 14-right ischium -Combined with other wound No -Current Size (cm) - Length 0.1 -Current Size (cm) - Width 0.1 -Current Size (cm) - Depth 0.1 -Total Square Cm 0.01 -Date of Last Picture (Recall this 10/02/18 field) -Photo Taken Yes -Epithelialization None Present -Tunneling No -Undermining/Tunneling No -Circular Undermining No -Exudate Amt None Present -Wound Margin Flat & Intact -Granulation Amt None Present (0 %) -Granulation Quality N/A -Slough/Fibrin Yes -Necrosis Amt Small (1-33%) -Structure Exposed N/A -Texture (Francia-wound Skin Appearance) No Abnormality Assessed -Moisture (Francia-wound Skin Appearance Assessed ) Dry/Scaly -Color (Francia-wound Skin Appearance) No Abnormality Assessed -Temperature (Francia-wound Skin No Abnormality Appearance) (Pt Warm) -Tenderness on Palpation (Francia-wound No Skin Appearance) -Ulcer Cleansing soap and water -Foul Odor after Cleansing No [Edema Assessment] -Lower Limb Edema Present No WC - Nurse 2 - General Ulcer CM Notes Start: 10/02/18 09:31 Freq: Status: Active Protocol: Activity Type Activity Date Activity User E-Sign Co-Sign Detail Recorded Client Recorded Date Recorded By Document 10/02/18 09:31 [id number] 10/02/18 09:33 10/02/18 09:31 Wound Center Nurse 2 [Procedure/Treatment] 14-right ischium -Time 09:32 -Correct Patient Yes -Correct Side, Site, Position Yes -Correct Procedure Yes -Procedure Performed Yes -Type of Procedure Debridement -Clinical Debridement Selective -Post Debridement Size (cm) - Length 3.5 -Post Debridement Size (cm) - Width 1 -Post Debridement Size (cm) - Depth 0.2 -Total Square Cm 3.5 -Wound/Ulcer Outcome Not Healed -Ulcer Cleansing Rinsed/ Irrigated with Saline -Foul Odor after Cleansing No -Bioengineered Tissue No -Bleeding Controlled with Pressure -Offloading No -Treatment Response Procedure Tolerated Well [See Physician Procedure note for Specifics] Pain Scale: 0-10 Numeric [Pain] -Is Patient Pain Free? Yes Debridement Note Post-Debridement Measurements/Treatment WC - Nurse 2 - General Ulcer CM Notes Start: 10/02/18 09:31 Freq: Status: Active Protocol: Activity Type Activity Date Activity User E-Sign Co-Sign Detail Recorded Client Recorded Date Recorded By Document 10/02/18 09:31 [id number] 10/02/18 09:33 10/02/18 09:31 Wound Center Nurse 2 14-right ischium -Time 09:32 -Correct Patient Yes -Correct Side, Site, Position Yes -Correct Procedure Yes -Procedure Performed Yes -Type of Procedure Debridement -Clinical Debridement Selective -Post Debridement Size (cm) - Length 3.5 -Post Debridement Size (cm) - Width 1 -Post Debridement Size (cm) - Depth 0.2 -Total Square Cm 3.5 -Wound/Ulcer Outcome Not Healed -Ulcer Cleansing Rinsed/ Irrigated with Saline -Foul Odor after Cleansing No -Bioengineered Tissue No -Bleeding Controlled with Pressure -Offloading No -Treatment Response Procedure Tolerated Well Pain Scale: 0-10 Numeric Is Patient Pain Free? Yes Wound debrided: #14 Right ischial area. Laterality: Right Wound Grade/Stage: II. Type of Debridement: Selective debridement Anesthesia Used: 4% Lidocaine Solution Depth: Down to and including healthy tissue - underlying dermis is present and viable. Percentage of wound debrided: 100 Instrument Used: 3mm curette Tissue Removed: skin. Severity: Limited To Skin Breakdown - underlying dermis is present and viable. Amount of bleeding with debridement: Mild Bleeding Controlled with: Pressure Patient tolerated procedure well Assessment/Plan Assessment: 1. Right ischial pressure sore, Stage II. 2. History of osteomyelitis. 3. History of MRSA. 4. Diabetes mellitus. 5. Incomplete quadriplegia. Plan: Patient has a right ischial pressure sore that extends into the dermis. It is a Stage II pressure sore. Will apply Collagen Hydrogel to the pressure sore daily. Discussed with the patient that the firm mass the nurse felt was skin scarring. I could not palpate any mass in the subcutaneous tissue. Discussed with the patient that if the pressure sore worsens into the subcutaneous tissue or muscle, then operative excision would be necessary and postop wound care with the VAC. In that scenario, a CT Pelvis would be done as well. If surgery becomes necessary, will check a Prealbumin and encourage nutritional supplementation with protein to help the healing process. The pressure sore is superficial so no wound culture was done today. If the pressure sore were to worsen, then a wound culture would be done. A positive culture would necessitate antibiotic therapy. Followup 3 weeks.
== END 2018-10-20 23:59 ==
LOC: WC 08:43
PROVIDERS: Family Provider Student in an Organized Health Care Education/Training Program; PCP Student in an Organized Health Care Education/Training Program; Visit Provider Surgery
DX: E11.622 Type 2 diabetes mellitus with other skin ulcer (principal); Z86.14 Personal history of Methicillin resistant Staphylococcus aureus infection; G82.50 Quadriplegia, unspecified; L89.212 Pressure ulcer of right hip, stage 2
CPT/HCPCS: 97597; 99213; G0463

== ENCOUNTER 2018-10-10 09:04 | Day surgery (SDC) | payer MEDICARE, OTHER, SELFPAY ==
[2018-09-28 13:16] VITALS: BMI 28.1
--- NOTE | 2018-09-28 14:01 | HP_ITS ---
Intake Vital Signs 09/28/18 Height 6 ft 3 in 09/28/18 Weight: 225 lb 1 oz 09/28/18 Body Mass Index (BMI) 28.1 09/28/18 Blood Pressure 135/83 H 09/28/18 Blood Pressure Location Lt brachial 09/28/18 Blood Pressure Position Sitting 09/28/18 Respiratory Rate 22 H 09/28/18 Pulse Rate 68 09/28/18 Pulse Ox 96 Intake Visit Reasons: Malfunctioning Port Chief Complaint: malfunctioning port [employer] Required: No Is patient in pain?: No Allergies Penicillins Allergy (Verified 09/28/18 13:16) Hives pentazocine lactate [From [place]] Adverse Reaction (Unknown, Verified 09/28/18 13:16) loopy bethanechol chloride [From Urecholine] Adverse Reaction (Verified 09/28/18 13:16) bladder clamped down fish derived Adverse Reaction (Verified 09/28/18 13:16) Nausea SEAFOOD Adverse Reaction (Uncoded 11/22/16 19:05) Vomiting Medications Multivitamins,Therapeutic [Multivitamin] 1 tab PO DAILY 02/04/14 [History Confirmed 09/28/18] Albuterol Aerosols [Ventolin Aerosols] 2.5 mg INHALATION Q4H PRN PRN 07/02/14 [History Confirmed 09/28/18] Cholecalciferol (VIT D3) [Vitamin D3] 1,000 unit PO DAILY 07/02/14 [History Confirmed 09/28/18] Hydrochlorothiazide [Hctz] 25 mg PO DAILY 07/02/14 [History Confirmed 09/28/18] Ascorbic Acid [Vitamin C] 1,000 mg PO BID 07/09/14 [History Confirmed 09/28/18] Acetaminophen [Tylenol] 1,000 mg PO Q8H PRN PRN #0 tab 12/23/14 [Rx Confirmed 09/28/18] Oxybutynin [Ditropan] 5 mg PO TID PRN PRN 03/18/16 [History Confirmed 09/28/18] Insulin Aspart [Novolog Flexpen] See Protocol SUBCUT TIDCM 06/04/16 [History Confirmed 09/28/18] Sodium Chloride 0.65% [[place] Nasal [place]] 2 spray NASAL DAILY PRN PRN 06/04/16 [History Confirmed 09/28/18] Potassium Chloride [K-Dur] 20 meq PO DAILYCM 07/27/16 [History Confirmed 09/28/18] Oxycodone [Oxyir] 5 mg PO 4X/DAY PRN PRN #40 tab 08/12/16 [Rx Confirmed 09/28/18] Cranberry Conc/Ascorbic Acid [Cranberry 6,000 mg Softgel] 4 ea PO DAILY 11/22/16 [History Confirmed 09/28/18] Loratadine [Claritin] 10 mg PO DAILY PRN 11/22/16 [History Confirmed 09/28/18] Baclofen [Lioresal] 20 mg PO TID 07/04/17 [History Confirmed 09/28/18] Docusate Sodium [Colace] 100 mg PO QHS 07/04/17 [History Confirmed 09/28/18] Gabapentin [Neurontin] 100 mg PO TID 07/04/17 [History Confirmed 09/28/18] Metformin HCl 500 mg PO BID 09/08/17 [History Confirmed 09/28/18] Insulin Detemir [Levemir (BKC)] 8 units SUBCUT QHS 02/09/18 [History Confirmed 09/28/18] Insulin Detemir [Levemir (BKC)] 9 units SUBCUT DAILY 02/09/18 [History Confirmed 09/28/18] aspirin 81 mg tablet,delayed release 81 mg PO DAILY 09/28/18 [History Confirmed 09/28/18] calcium carbonate 320 mg calcium (750 mg) chewable tablet PO tab 09/28/18 [History Confirmed 09/28/18] calcium polycarbophil 625 mg tablet 1,250 mg PO BID 09/28/18 [History Confirmed 09/28/18] glimepiride 4 mg tablet 4 mg PO QAM 09/28/18 [History Confirmed 09/28/18] [facility] Medical History Delayed wound healing (Acute) Ulcer of right lower extremity with fat layer exposed (Acute) Type 2 diabetes mellitus with diabetic polyneuropathy (Acute) 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 (Acute) Chronic incomplete quadriplegia (Acute) History of spinal cord injury (Acute) Suspected deep tissue injury of unknown depth of heel (Acute) Diabetic ulcer of right foot (Acute) Pressure ulcer of left hip, stage 4 (Chronic) Anemia (Chronic) Obesity (Chronic) Allergic rhinitis (Chronic) Hypertension (Chronic) Diabetes mellitus (Acute) [place] treated with BiPAP (Acute) History of methicillin resistant Staphylococcus aureus infection (Chronic) Surgical History History Post Insertion (Acute) History of colonoscopy (Acute) History of eye surgery (Acute) History of foot surgery (Acute) History of nasal septoplasty (Acute) History of partial colectomy (Acute) History of rectal surgery (Acute) History of tonsillectomy (Acute) History of transurethral resection of prostate (Acute) History of urethral stent (Acute) History of uvulectomy (Acute) Social History Smoking Status: Never smoker HPI HPI HPI: TANIA CONDE, is a 68 M who presents to the office today for HPI HPI Surgical H&P: Yes HPI: TANIA CONDE, is a 68 M who presents to the office today for evaluation for a malfunctioning right IJ PowerPort. Back in 2014 I placed a right IJ PowerPort it is always had some slight issues but recently has not been able to flush nor has anyone been able to use it to give antibiotics. He needs this for recurrent urinary tract infections and long-term catheters which require frequent changes as well as antibiotics on a routine basis. ROS General General: No weight change, appetite, fatigue, colon cancer, breast cancer or weakness HEENT HEENT: Yes eye surgery; no difficulty swallowing, eye injury, swollen glands or hoarseness Endo Endocrine: Yes diabetes mellitus; no thyroid disease, thyroid cancer, Hair loss, heat intolerance or cold intolerance Musc Musculoskeletal: Yes back problems and arthritis; no rheumatoid arthritis, gout or joint pain Cardio Cardiovascular: No murmur, pacemaker, heart disease, atrial fibrillation, high blood pressure, heart attack, heart stent, palpitations, shortness of breat with exertion or chest pain Resp Respiratory: No shortness of breath, Yes sleep apnea, No cough, No COPD, No asthma, No emphysema, No wheezing Gastro Gastrointestinal: No abdominal pain, No nausea or vomiting, No diarrhea, No constipation, No blood in stool, No acid reflux, No hemorrhoids, No ulcers, No gallbladder problem, No black,tarry stools Neuro Neurologic: No weakness Exam Const General: no acute distress, well developed, well hydrated Orientation: oriented to person, oriented to place, oriented to time [facility] Head: normocephalic, atraumatic Ears: external ears normal Mouth: moist mucous membranes Eyes Sclera: sclerae normal Pupils: normal by confrontation Neck Neck: no lymphadenopathy noted Neck mass: No Thyroid: thyroid normal, symmetrical Chest Chest palpation & inspection: normal inspection of the chest Resp Effort & Inspection: normal respiratory effort Auscultation: clear to auscultation bilaterally Percussion: percussion normal Cardio Rate: regular rate Rhythm: regular rhythm Heart Sounds: no murmurs Assessment & Plan Problems 1. Vascular catheter fitting or adjustment Z45.2 Plan I have discussed above with the patient- Port-a-Cath placement. Patient has been counseled as to the risks/benefits of the procedure. I have explained the risks of the surgery, including but not limited to: infection, bleeding, injury to any blood vessels/nerves, injury to lungs (such as pneumothorax or hemothorax and need for chest tube), not having any access, nonfunctioning of port due to thrombosis, infection of port, etc. the patient understands and agrees to proceed. I have answered all the patient's questions to the patient?s satisfaction and the patient has no further questions. At the same time I am going to remove the right IJ PowerPort. Coding Level of Care Code Off vis,new,level 3 Diagnoses Vascular catheter fitting or adjustment Z45.2 09/28/18 1401 <Electronically signed by Nelson Hirshc MD> Date Nelson Hirsch MD I have re-examined the patient. There are no clinical changes since date of exam.
[2018-10-10 09:57] VITALS: BP 103/74; PULSE 63; RESP 16; TEMP 36.5; O2SAT 96; BMI 28.8
[2018-10-10 10:30] LABS: Bedside Glucose 115 mg/dL (70-110)
[2018-10-10] MEDS: Bupivacaine Mpf 0.5% 30 ML VIAL (11:45)
--- NOTE | 2018-10-10 11:50 | PCM.OPRPT ---
Problem List (1) Encounter for adjustment or management of vascular access device Status: Acute Report of Operation Date of Procedure: 10/10/18 Pre-Operative Diagnosis: Vascular fitting and adjustment Post-Operative Diagnosis: Same Surgery/Procedure Performed:: 1. Placement of a left subclavian PowerPort. 2. Removal of right IJ PowerPort Type of Anesthesia:: Local MAC Anesthesiologist: Surendra Hernandez Estimated Blood Loss (mL): < 25 cc Description of Procedure: Patient was brought in the operating room placed in the supine position under excellent MAC anesthetic I ultrasound the neck with him in the headdown position I identified a very small left-sided internal jugular vein and it was extremely deep the neck and chest were then sterilely prepped and draped in usual fashion. I injected local into the neck I attempted to identify and get into this but due to its deep location and the fact that he was very short neck I was worried that I was going to cause a pneumothorax I aborted the internal jugular approach and then went into a left subclavian approach I injected local underneath the collarbone Seldinger technique was used to gain access to the internal jugular vein without difficulty the guidewire was placed over the needle the needle was removed and fluoroscopy was used to confirm proper placement I injected local under the chest made a pocket for the port then placed the dilator over the needle removing the dilator place a dilator and sheath over the guidewire removing the guidewire and dilator. Single lumen catheter was placed through the sheath the sheath was removed fluoroscopy was used to confirm proper length. I tunneled from this area down into the pocket cut it to length placed the locking up on the catheter and the port onto the catheter and secured the 2 with a locking hub it flushed and irrigated well was flushed with 5 cc of hep flush it was sutured into the pocket created with 2 sutures of 2-0 Prolene. Skin incisions were brought together with subcuticular stitches of 3-0 Vicryl. Attention was then taken to the right side of the neck. Local was injected into the right chest area incision was made dissected down to the catheter I remove the catheter without difficulty I cut the 2 Prolene sutures and remove the port without difficulty I confirmed that the entire catheter and port came out in one piece. I remove the Prolene sutures in the subcu the subcu was then brought together with deep dermal stitches of 3-0 Vicryl. Sterile dressings were applied and the patient tolerated the procedure well. - Admit VTE Documentation VTE Present on Admission: No VTE Mechan Device Prophylaxis: SCD's VTE Pharm Prophylaxis ordered?: No Reason prophylaxis not ordered:: Treatment Not Indicated
--- NOTE | 2018-10-10 11:55 | DCINST_ITS ---
Discharge Diet: No Restrictions - Pain medication may cause nausea. You should typically eat light foods as you take your pain medication. Discharge Activity: May Shower - with the bandage in place 1-2 days after surgery. DO NOT SHOWER WHEN YOUR PORT IS ACCESSED. Additional Activity Instructions:: May not drive, work with heavy equipment, or sign legal documents for [address] if you are no longer taking narcotic pain medications. You may drive when you are no longer taking pain medications. Additional Dressing/Incision Instructions:: Leave the bandage on for 2-3 days. When you remove the bandage, leave the steri-strips intact until they fall off. Allergies/Adverse Reactions: Allergies Penicillins Allergy (Verified 10/10/18 09:55) Hives pentazocine lactate [From [place]] Adverse Reaction (Unknown, Verified 10/10/18 09:55) loopy loopy bethanechol chloride [From Urecholine] Adverse Reaction (Verified 10/10/18 09:55) bladder clamped down bladder clamped down had opposite reaction of what was expected fish derived Adverse Reaction (Verified 10/10/18 09:55) Nausea SEAFOOD Adverse Reaction (Uncoded 10/10/18 09:55) Vomiting Medications to take at Discharge Multivitamins,Therapeutic [Multivitamin] 1 tab PO DAILY 02/04/14 Albuterol Aerosols [Ventolin Aerosols] 2.5 mg INHALATION Q4H PRN PRN 07/02/14 Cholecalciferol (VIT D3) [Vitamin D3] 1,000 unit PO DAILY 07/02/14 Hydrochlorothiazide [Hctz] 25 mg PO DAILY 07/02/14 Ascorbic Acid [Vitamin C] 1,000 mg PO BID 07/09/14 Acetaminophen [Tylenol] 1,000 mg PO Q8H PRN PRN #0 tab 12/23/14 Oxybutynin [Ditropan] 5 mg PO TID PRN PRN 03/18/16 Sodium Chloride 0.65% [[place] Nasal [place]] 2 spray NASAL DAILY PRN PRN 06/04/16 Potassium Chloride [K-Dur] 20 meq PO DAILYCM 07/27/16 Oxycodone [Oxyir] 5 mg PO 4X/DAY PRN PRN #40 tab 08/12/16 Cranberry Conc/Ascorbic Acid [Cranberry 6,000 mg Softgel] 1 cap PO DAILY 11/22/16 Loratadine [Claritin] 10 mg PO DAILY PRN 11/22/16 Baclofen [Lioresal] 20 mg PO TID 07/04/17 Docusate Sodium [Colace] 100 mg PO QHS PRN 07/04/17 Gabapentin [Neurontin] 100 mg PO TID 07/04/17 Insulin Detemir [Levemir (BKC)] 26 units SUBCUT BID 02/09/18 aspirin 81 mg tablet,delayed release 81 mg PO DAILY 09/28/18 calcium carbonate 320 mg calcium (750 mg) chewable tablet 1 tab PO PRN PRN tab 09/28/18 calcium polycarbophil 625 mg tablet 1,250 mg PO BID 09/28/18 glimepiride 4 mg tablet 1 mg PO QAM 09/28/18 B-Complex with Vitamin C [Super B Complex-Vitamin C] 1 each PO DAILY 10/03/18 Calcium Carb/D3/Magnesium/Zinc [Bplmhdo-Oim-Tiqm-Vit D Tablet] 1 each PO DAILY 10/03/18 Metformin HCl [Metformin ER Osmotic] 500 mg PO DAILY 10/03/18 Primary Care Physician: Antonio De La Vega MD [Primary Care Provider] - Test Results: Test results from this visit will be discussed in further detail at your follow- up appointment, if applicable. Please Follow Up With: Nelson Hirsch MD - [phone] When: Please plan to follow up in 7 days in the office.
[2018-10-10 12:15] VITALS: BP 103/74; BP 130/87; BP 83/63; PULSE 60; PULSE 63; RESP 16; RESP 18; TEMP 36.2; O2SAT 94; O2SAT 95
[2018-10-10 12:20] VITALS: BP 103/74; BP 95/71; PULSE 60; RESP 16; O2SAT 97
[2018-10-10 12:25] VITALS: BP 103/74; BP 114/82; PULSE 58; RESP 16; O2SAT 98
--- NOTE | 2018-10-10 12:33 | RAD_ITS ---
STUDY: X-RAY CHEST REASON FOR EXAM: Male, 68 years old. Port placement. TECHNIQUE: Single AP portable view of the chest. COMPARISON: Comparison is made with prior examination dated December 19, 2014. FINDINGS: A left-sided kelvin catheter as been inserted. The tip is at the junction of the superior vena cava and right atrium. The lungs are clear and expanded. There is no demonstrated pleural abnormality. Normal size heart. Normal mediastinum and bradley. Normal visualized pulmonary arteries. Normal visualized aortic arch and descending thoracic aorta. There are diffuse degenerative changes of the visualized thoracic spine. Stable levoscoliosis of the thoracic spine. Deformity of the left rib cage most likely secondary to healing fractures. Osteoarthritis of both shoulder joints. There is no demonstrated abnormality of the visualized soft tissue structures of the upper abdomen. RAD/Chest 1 View (Portable) IMPRESSION: The tip of the left-sided portacatheter is at the junction of the superior vena cava and right atrium. Electronically Signed: Edmund Gutierrez, at 13:10 EDT , Service support ,
[2018-10-10 12:48] VITALS: BP 100/71; BP 103/74; PULSE 59; RESP 16; O2SAT 95
[2018-10-10 12:50] VITALS: BP 100/71; BP 103/74; PULSE 58; RESP 16; TEMP 35.9; O2SAT 93
== END 2018-10-10 14:10 | disposition home or self-care (01) ==
LOC: SDC 09:07 → AC 09:07
PROVIDERS: Family Provider Student in an Organized Health Care Education/Training Program; PCP Student in an Organized Health Care Education/Training Program; Referring Provider Surgery; Visit Provider Surgery
PROC: (CPT 36561; principal; 2018-10-10 10:45)
DX: T82.9XXA Unspecified complication of cardiac and vascular prosthetic device, implant and graft, initial encounter (principal); G82.50 Quadriplegia, unspecified; T14.90XS Injury, unspecified, sequela; X58.XXXS Exposure to other specified factors, sequela; I10 Essential (primary) hypertension; E11.42 Type 2 diabetes mellitus with diabetic polyneuropathy; E11.621 Type 2 diabetes mellitus with foot ulcer; L97.416 Non-pressure chronic ulcer of right heel and midfoot with bone involvement without evidence of necrosis; G82.54 Quadriplegia, C5-C7 incomplete; L89.224 Pressure ulcer of left hip, stage 4; D64.9 Anemia, unspecified; J30.9 Allergic rhinitis, unspecified; E66.9 Obesity, unspecified; G47.33 Obstructive sleep apnea (adult) (pediatric); Z93.3 Colostomy status; Z79.82 Long term (current) use of aspirin; Z79.4 Long term (current) use of insulin; Z79.899 Other long term (current) drug therapy; Z88.0 Allergy status to penicillin; Z86.14 Personal history of Methicillin resistant Staphylococcus aureus infection; Z87.440 Personal history of urinary (tract) infections
CPT/HCPCS: 00532; 36561; 36590; 76937; 71045; 77001; 82962; J7120; C1788

== ENCOUNTER 2018-11-13 09:00 | Outpatient (RCR) | payer MEDICARE, OTHER, SELFPAY ==
[2018-10-21 01:22] VITALS: BP 125/68; PULSE 67; RESP 18; TEMP 36.6; BMI 28.1
[2018-10-23 10:16] VITALS: BP 100/64; PULSE 69; RESP 18; TEMP 35.9; BMI 28.1
--- NOTE | 2018-10-23 13:10 | PCM.WC.PN ---
(1) Pressure sore of left ischium, stage 2 Status: Chronic Code(s): L89.322 - Pressure ulcer of left buttock, stage 2 (2) Right ischial pressure sore, stage 2 Status: Chronic Code(s): L89.312 - Pressure ulcer of right buttock, stage 2 (3) Quadriplegia Status: Chronic Code(s): G82.50 - Quadriplegia, unspecified Comment: G82.50 (4) Diabetes mellitus Status: Chronic Code(s): E11.9 - Type 2 diabetes mellitus without complications Comment: diet control, new diagnosis Type of Wound Date of Service: 10/23/18 Chief Complaint: Right ischial pressure sore, Stage II. History of Wound: Patient is known to me from a previous complex left ischial/perineal pressure sore that necessitated multiple muscle flaps for reconstruction who presented today with a right ischial pressure sore that has him concerned because his nurse thought there was a firm mass in the area. He denies fever. He denies any trauma. He is also being treated by Podiatry for a heel ulcer. Progress of Wound: Stable. - Physical Exam Vital Signs Temp Pulse Resp BP 96.7 F L 69 18 100/64 10/23/18 10:16 10/23/18 10:16 10/23/18 10:16 10/23/18 10:16 General: Alert, Oriented x3, Cooperative HEENT: Atraumatic Oral: Moist Mucosa Lungs: Normal air movement Cardiovascular: Regular rate Extremities: - - Has bilateral boots on feet, seeing podiatry to manage foot/heel issues Skin: Ulcer/ Wound - bilateral ischial stage 2 ulcers. Superficial Wound Measurements and Assessment WC - Nurse 1 - General Ulcer Measurement Start: 10/23/18 10:16 Freq: Status: Active Protocol: Activity Type Activity Date Activity User E-Sign Co-Sign Detail Recorded Client Recorded Date Recorded By Document 10/23/18 10:16 DL [id number] 10/23/18 10:18 DL 10/23/18 10:16 Wound Center Nurse 1 [Ulcer Assessment] 14-right ischium -Current Size (cm) - Length 0.1 -Current Size (cm) - Width 0.1 -Current Size (cm) - Depth 0.1 -Total Square Cm 0.01 -Photo Taken No -Exudate Amt None Present -Wound Margin Flat & Intact -Granulation Amt Large (67-100%) -Granulation Quality [place] -Necrosis Amt None Present (0 %) -Structure Exposed N/A -Texture (Francia-wound Skin Appearance) Scarring -Moisture (Francia-wound Skin Appearance No Abnormality ) -Color (Francia-wound Skin Appearance) No Abnormality -Temperature (Francia-wound Skin No Abnormality Appearance) (Pt Warm) -Tenderness on Palpation (Francia-wound No Skin Appearance) -Ulcer Cleansing Wound Cleanser -Foul Odor after Cleansing No -Anesthetic Used 4% Lidocaine Solution WC - Nurse 2 - General Ulcer CM Notes Start: 10/23/18 10:16 Freq: Status: Active Protocol: Activity Type Activity Date Activity User E-Sign Co-Sign Detail Recorded Client Recorded Date Recorded By Document 10/23/18 10:38 AN [id number] 10/23/18 10:43 AN 10/23/18 10:38 Wound Center Nurse 2 [Procedure/Treatment] #15 left ischium cluster -Time 10:41 -Correct Patient Yes -Correct Side, Site, Position Yes -Correct Procedure Yes -Procedure Performed Yes -Type of Procedure Debridement -Clinical Debridement Subcutaneous -Post Debridement Size (cm) - Length 1.5 -Post Debridement Size (cm) - Width 1.5 -Post Debridement Size (cm) - Depth 0.1 -Total Square Cm 2.25 -Wound/Ulcer Outcome Not Healed -Ulcer Cleansing Rinsed/ Irrigated with Saline -Foul Odor after Cleansing No -Bioengineered Tissue No -Bleeding Controlled with Pressure -Treatment Response Procedure Tolerated Well 14-right ischium -Time 10:41 -Correct Patient Yes -Correct Side, Site, Position Yes -Correct Procedure Yes -Procedure Performed Yes -Type of Procedure Debridement -Clinical Debridement Subcutaneous -Post Debridement Size (cm) - Length 0.6 -Post Debridement Size (cm) - Width 0.7 -Post Debridement Size (cm) - Depth 0.5 -Total Square Cm 0.42 -Wound/Ulcer Outcome Not Healed -Ulcer Cleansing Rinsed/ Irrigated with Saline -Foul Odor after Cleansing No -Bioengineered Tissue No -Bleeding Controlled with Pressure -Treatment Response Procedure Tolerated Well [See Physician Procedure note for Specifics] Musculoskeletal: No Tenderness to Palpation of Joints or Extremities Neurological: Neuro grossly intact Psych/Mental Status: Normal Affect, Appropriate Debridement Note Post-Debridement Measurements/Treatment WC - Nurse 2 - General Ulcer CM Notes Start: 10/23/18 10:16 Freq: Status: Active Protocol: Activity Type Activity Date Activity User E-Sign Co-Sign Detail Recorded Client Recorded Date Recorded By Document 10/23/18 10:38 AN [id number] 10/23/18 10:43 AN 10/23/18 10:38 Wound Center Nurse 2 #15 left ischium cluster -Time 10:41 -Correct Patient Yes -Correct Side, Site, Position Yes -Correct Procedure Yes -Procedure Performed Yes -Type of Procedure Debridement -Clinical Debridement Subcutaneous -Post Debridement Size (cm) - Length 1.5 -Post Debridement Size (cm) - Width 1.5 -Post Debridement Size (cm) - Depth 0.1 -Total Square Cm 2.25 -Wound/Ulcer Outcome Not Healed -Ulcer Cleansing Rinsed/ Irrigated with Saline -Foul Odor after Cleansing No -Bioengineered Tissue No -Bleeding Controlled with Pressure -Treatment Response Procedure Tolerated Well 14-right ischium -Time 10:41 -Correct Patient Yes -Correct Side, Site, Position Yes -Correct Procedure Yes -Procedure Performed Yes -Type of Procedure Debridement -Clinical Debridement Subcutaneous -Post Debridement Size (cm) - Length 0.6 -Post Debridement Size (cm) - Width 0.7 -Post Debridement Size (cm) - Depth 0.5 -Total Square Cm 0.42 -Wound/Ulcer Outcome Not Healed -Ulcer Cleansing Rinsed/ Irrigated with Saline -Foul Odor after Cleansing No -Bioengineered Tissue No -Bleeding Controlled with Pressure -Treatment Response Procedure Tolerated Well Wound debrided: bilateral ischial cluster ulcers Type of Debridement: Excisional debridement Anesthesia Used: 4% Lidocaine Solution Depth: Down to and including healthy tissue, in the subcutaneous layer Percentage of wound debrided: 100 Instrument Used: 3mm curette Tissue Removed: Subcutaneous tissue and slough Severity: Limited To Skin Breakdown Amount of bleeding with debridement: Mild Bleeding Controlled with: Pressure Patient tolerated procedure well Assessment/Plan Assessment: 1. Right ischial pressure sore, Stage II. 2. Left ishcial cluster pressure sore, Stage II. 3. History of osteomyelitis. 4. History of MRSA. 5. Diabetes mellitus. 6. Incomplete quadriplegia. Plan: Patient has a right and left ischial pressure sore that extends into the dermis. It is a Stage II pressure sore. Will apply Collagen Hydrogel to the pressure sore daily. Discussed with the patient that if the pressure sore worsens into the subcutaneous tissue or muscle, then operative excision would be necessary and postop wound care with the VAC. In that scenario, a CT Pelvis would be done as well. If surgery becomes necessary, will check a Prealbumin and encourage nutritional supplementation with protein to help the healing process. The pressure sore is superficial so no wound culture was done today. If the pressure sore were to worsen, then a wound culture would be done. A positive culture would necessitate antibiotic therapy. Followup 3 weeks. Code Visit [id number]: [id number] Char subq tissue 20 sq cm/<
== END 2018-11-19 23:59 ==
LOC: WC 09:00
PROVIDERS: Family Provider Student in an Organized Health Care Education/Training Program; PCP Student in an Organized Health Care Education/Training Program; Visit Provider Surgery
DX: E11.622 Type 2 diabetes mellitus with other skin ulcer (principal); G82.50 Quadriplegia, unspecified; L89.222 Pressure ulcer of left hip, stage 2; L89.212 Pressure ulcer of right hip, stage 2; Z86.14 Personal history of Methicillin resistant Staphylococcus aureus infection
CPT/HCPCS: 11042

== ENCOUNTER → 2018-11-13 10:51 | Outpatient (CLI) | payer MEDICARE, OTHER, SELFPAY ==
[2018-10-23 10:16] VITALS: BMI 28.1
[2018-11-02 14:43] VITALS: BMI 28.8
== END ==
PROVIDERS: Family Provider Student in an Organized Health Care Education/Training Program; PCP Student in an Organized Health Care Education/Training Program; Referring Provider Surgery; Visit Provider Surgery
DX: Z45.2 Encounter for adjustment and management of vascular access device (principal); E11.622 Type 2 diabetes mellitus with other skin ulcer; G82.50 Quadriplegia, unspecified; L89.222 Pressure ulcer of left hip, stage 2; L89.212 Pressure ulcer of right hip, stage 2; Z86.14 Personal history of Methicillin resistant Staphylococcus aureus infection
CPT/HCPCS: 96523; A4216

== ENCOUNTER → 2018-12-18 09:23 | Outpatient (CLI) | payer MEDICARE, OTHER, SELFPAY ==
[2018-12-04 09:07] VITALS: BMI 28.8
== END ==
PROVIDERS: Family Provider Student in an Organized Health Care Education/Training Program; PCP Student in an Organized Health Care Education/Training Program; Referring Provider Surgery; Visit Provider Surgery
DX: Z45.2 Encounter for adjustment and management of vascular access device (principal); B36.9 Superficial mycosis, unspecified; E11.9 Type 2 diabetes mellitus without complications; Z86.14 Personal history of Methicillin resistant Staphylococcus aureus infection
CPT/HCPCS: 96523; 99213; A4216; G0463

== ENCOUNTER 2018-12-18 10:30 | Outpatient (RCR) | payer MEDICARE, OTHER, SELFPAY ==
[2018-11-02 14:43] VITALS: BMI 28.8
[2018-11-20 00:55] VITALS: BP 100/64; PULSE 69; RESP 18; TEMP 35.9
[2018-12-04 09:07] VITALS: BP 113/55; PULSE 65; RESP 18; TEMP 35.5; BMI 28.8
--- NOTE | 2018-12-04 14:26 | PCM.WC.PN ---
Type of Wound Date of Service: 12/04/18 Chief Complaint: Extensive fungal rash bilateral inguinal areas and bilateral gluteal areas with no ulceration. History of Wound: Patient comes in today with concerns about an extensive fungal rash in her bilateral inguinal areas and bilateral gluteal areas. His nurse aid was concerned that this rash could lead to wound breakdown and ulceration. Today he denies fever. His appetite is ok. Progress of Wound: Extensive fungal rash with no ulceration. - Physical Exam Vital Signs Temp Pulse Resp BP 96 F L 65 18 113/55 L 12/04/18 09:07 12/04/18 09:07 12/04/18 09:07 12/04/18 09:07 General: Alert, Oriented x3 HEENT: PERRLA, EOMI Oral: Moist Mucosa Neck: Supple Lungs: Clear to auscultation Cardiovascular: Regular rate, Regular Rhythm Abdomen: Soft, Non-Distended Extremities: No clubbing, No cyanosis, Edema - mild edema in lower extremities. Skin: No breakdown, - - extensive fungal rash in biliateral inguinal areas and bilateral gluteal areas. Wound Measurements and Assessment WC - Nurse 1 - General Ulcer Measurement Start: 12/04/18 09:07 Freq: Status: Active Protocol: Activity Type Activity Date Activity User E-Sign Co-Sign Detail Recorded Client Recorded Date Recorded By Document 12/04/18 09:07 DL [id number] 12/04/18 09:21 DL 12/04/18 09:07 Wound Center Nurse 1 [Ulcer Assessment] #15 left ischium cluster -Current Size (cm) - Length 0.1 -Current Size (cm) - Width 0.1 -Current Size (cm) - Depth 0.1 -Total Square Cm 0.01 -Photo Taken Yes -Exudate Amt None Present -Wound Margin Flat & Intact -Granulation Amt Small (1-33%) -Granulation Quality Red -Necrosis Amt None Present (0 %) -Structure Exposed N/A -Texture (Francia-wound Skin Appearance) Excoriation -Moisture (Francia-wound Skin Appearance No Abnormality ) -Color (Francia-wound Skin Appearance) Palor,Rubor -Temperature (Francia-wound Skin No Abnormality Appearance) (Pt Warm) -Tenderness on Palpation (Francia-wound No Skin Appearance) -Ulcer Cleansing Wound Cleanser -Foul Odor after Cleansing No 14-right ischium -Current Size (cm) - Length 0.1 -Current Size (cm) - Width 0.1 -Current Size (cm) - Depth 0.1 -Total Square Cm 0.01 -Photo Taken Yes -Exudate Amt None Present -Wound Margin Flat & Intact -Granulation Amt Small (1-33%) -Granulation Quality Shirley -Necrosis Amt None Present (0 %) -Structure Exposed N/A -Texture (Francia-wound Skin Appearance) Excoriation -Moisture (Francia-wound Skin Appearance No Abnormality ) -Color (Francia-wound Skin Appearance) Palor,Rubor -Temperature (Francia-wound Skin No Abnormality Appearance) (Pt Warm) -Tenderness on Palpation (Francia-wound No Skin Appearance) -Ulcer Cleansing Wound Cleanser -Foul Odor after Cleansing No WC - Nurse 2 - General Ulcer CM Notes Start: 12/04/18 09:07 Freq: Status: Active Protocol: Activity Type Activity Date Activity User E-Sign Co-Sign Detail Recorded Client Recorded Date Recorded By Document 12/04/18 09:51 MW [id number] 12/04/18 10:03 MW 12/04/18 09:51 Wound Center Nurse 2 [Procedure/Treatment] #15 left ischium cluster -Time 09:54 -Correct Patient Yes -Correct Side, Site, Position Yes -Correct Procedure Yes -Procedure Performed No -Post Debridement Size (cm) - Length 0 -Post Debridement Size (cm) - Width 0 -Post Debridement Size (cm) - Depth 0 -Total Square Cm 0 -Wound/Ulcer Outcome Healed- Epithelialized -Ulcer Cleansing Not Cleansed -Foul Odor after Cleansing No -Bleeding Controlled with NA -Offloading No -Treatment Response Procedure Tolerated Well 14-right ischium -Time 09:54 -Correct Patient Yes -Correct Side, Site, Position Yes -Correct Procedure Yes -Procedure Performed No -Post Debridement Size (cm) - Length 0 -Post Debridement Size (cm) - Width 0 -Post Debridement Size (cm) - Depth 0 -Total Square Cm 0 -Wound/Ulcer Outcome Healed- Epithelialized -Ulcer Cleansing Not Cleansed -Foul Odor after Cleansing No -Bleeding Controlled with NA -Offloading No -Treatment Response Procedure Tolerated Well [See Physician Procedure note for Specifics] Pain Scale: 0-10 Numeric [Pain] -Is Patient Pain Free? Yes Neurological: Cranial nerves II-XII grossly intact Psych/Mental Status: Normal Affect, Appropriate Debridement Note Post-Debridement Measurements/Treatment WC - Nurse 2 - General Ulcer CM Notes Start: 12/04/18 09:07 Freq: Status: Active Protocol: Activity Type Activity Date Activity User E-Sign Co-Sign Detail Recorded Client Recorded Date Recorded By Document 12/04/18 09:51 MW [id number] 12/04/18 10:03 MW 12/04/18 09:51 Wound Center Nurse 2 #15 left ischium cluster -Time 09:54 -Correct Patient Yes -Correct Side, Site, Position Yes -Correct Procedure Yes -Procedure Performed No -Post Debridement Size (cm) - Length 0 -Post Debridement Size (cm) - Width 0 -Post Debridement Size (cm) - Depth 0 -Total Square Cm 0 -Wound/Ulcer Outcome Healed- Epithelialized -Ulcer Cleansing Not Cleansed -Foul Odor after Cleansing No -Bleeding Controlled with NA -Offloading No -Treatment Response Procedure Tolerated Well 14-right ischium -Time 09:54 -Correct Patient Yes -Correct Side, Site, Position Yes -Correct Procedure Yes -Procedure Performed No -Post Debridement Size (cm) - Length 0 -Post Debridement Size (cm) - Width 0 -Post Debridement Size (cm) - Depth 0 -Total Square Cm 0 -Wound/Ulcer Outcome Healed- Epithelialized -Ulcer Cleansing Not Cleansed -Foul Odor after Cleansing No -Bleeding Controlled with NA -Offloading No -Treatment Response Procedure Tolerated Well Pain Scale: 0-10 Numeric Is Patient Pain Free? Yes There are no wounds today. There is an extensive fungal rash in his bilateral inguinal areas and bilateral gluteal areas. Assessment/Plan Assessment: 1. Extensive fungal rash bilateral inguinal areas and bilateral gluteal areas with no ulceration. 2. History of osteomyelitis. 3. History of MRSA. 4. Diabetes mellitus. 5. Incomplete quadriplegia. Plan: Will order Nystatin powder that will be applied to the fungal rash twice a day. Discussed with the patient that the rash increases the risk of skin breakdown and ulceration. Followup 2 weeks.
[2018-12-18 10:16] VITALS: BP 108/70; PULSE 63; RESP 18; TEMP 37.1; BMI 28.8
--- NOTE | 2018-12-18 18:16 | PCM.WC.PN ---
Type of Wound Date of Service: 12/18/18 Chief Complaint: Fungal rash bilateral inguinal areas and bilateral gluteal areas with no ulceration. History of Wound: Patient comes in today with concerns about an extensive fungal rash in her bilateral inguinal areas and bilateral gluteal areas. His nurse aid was concerned that this rash could lead to wound breakdown and ulceration. Today he denies fever. His appetite is ok. Progress of Wound: Fungal rash with no ulceration, much improved. - Physical Exam Vital Signs Temp Pulse Resp BP 98.7 F 63 18 108/70 12/18/18 10:16 12/18/18 10:16 12/18/18 10:16 12/18/18 10:16 General: Alert, Oriented x3 HEENT: PERRLA, EOMI Oral: Moist Mucosa Neck: Supple Lungs: Clear to auscultation Cardiovascular: Regular rate, Regular Rhythm Abdomen: Soft, Non-Distended Extremities: No clubbing, No cyanosis, Edema - mild edema in lower extremities. Skin: - - fungal rash much improved in bilateral inguinal areas and bilateral gluteal areas. Neurological: Cranial nerves II-XII grossly intact Psych/Mental Status: Normal Affect, Appropriate Debridement Note Post-Debridement Measurements/Treatment WC - Nurse 2 - General Ulcer CM Notes Start: 12/04/18 09:07 Freq: Status: Active Protocol: Activity Type Activity Date Activity User E-Sign Co-Sign Detail Recorded Client Recorded Date Recorded By Document 12/04/18 09:51 MW [id number] 12/04/18 10:03 MW Document 12/18/18 11:57 MW [id number] 12/18/18 12:00 MW 12/04/18 12/18/18 09:51 11:57 Wound Center Nurse 2 #15 left ischium cluster -Time 09:54 11:58 -Correct Patient Yes Yes -Correct Side, Site, Position Yes Yes -Correct Procedure Yes Yes -Procedure Performed No No -Post Debridement Size (cm) - Length 0 0 -Post Debridement Size (cm) - Width 0 0 -Post Debridement Size (cm) - Depth 0 0 -Total Square Cm 0 0 -Wound/Ulcer Outcome Healed- Healed- Epithelialized Epithelialized -Ulcer Cleansing Not Cleansed -Foul Odor after Cleansing No -Bleeding Controlled with NA -Offloading No -Treatment Response Procedure Tolerated Well 14-right ischium -Time 09:54 -Correct Patient Yes -Correct Side, Site, Position Yes -Correct Procedure Yes -Procedure Performed No -Post Debridement Size (cm) - Length 0 -Post Debridement Size (cm) - Width 0 -Post Debridement Size (cm) - Depth 0 -Total Square Cm 0 -Wound/Ulcer Outcome Healed- Epithelialized -Ulcer Cleansing Not Cleansed -Foul Odor after Cleansing No -Bleeding Controlled with NA -Offloading No -Treatment Response Procedure Tolerated Well Pain Scale: 0-10 Numeric Is Patient Pain Free? Yes Yes There are no wounds today. There is a fungal rash in his bilateral inguinal areas and bilateral gluteal areas that is much improved. Assessment/Plan Assessment: 1. Fungal rash bilateral inguinal areas and bilateral gluteal areas with no ulceration, much improved. 2. History of osteomyelitis. 3. History of MRSA. 4. Diabetes mellitus. 5. Incomplete quadriplegia. Plan: Fungal rash is much improved. Continue Nystatin powder that will be applied to the fungal rash twice a day. Discussed with the patient that the rash increases the risk of skin breakdown and ulceration. Followup on an as needed basis if the area worsens.
== END 2018-12-20 23:59 ==
LOC: WC 10:30
PROVIDERS: Family Provider Student in an Organized Health Care Education/Training Program; PCP Student in an Organized Health Care Education/Training Program; Visit Provider Surgery
DX: B36.9 Superficial mycosis, unspecified (principal); E11.9 Type 2 diabetes mellitus without complications; Z86.14 Personal history of Methicillin resistant Staphylococcus aureus infection
CPT/HCPCS: 99213; G0463

== ENCOUNTER → 2019-01-11 09:39 | Outpatient (CLI) | payer MEDICARE, OTHER, SELFPAY ==
[2018-12-18 10:16] VITALS: BMI 28.8
[2019-01-11 10:38] LABS: Cholesterol 140 mg/dL (200); High Density Lipoprotein 31 mg/dL; Triglycerides 196 mg/dL; Very Low Density Lipoprotein 39 mg/dL (5-40)
== END ==
PROVIDERS: Family Provider Student in an Organized Health Care Education/Training Program; PCP Student in an Organized Health Care Education/Training Program; Referring Provider Surgery; Visit Provider Surgery
DX: Z45.2 Encounter for adjustment and management of vascular access device (principal); E78.5 Hyperlipidemia, unspecified
CPT/HCPCS: 36591; 80061; A4216

== ENCOUNTER → 2019-02-13 09:01 | Outpatient (CLI) | payer MEDICARE, OTHER, SELFPAY | PROVIDERS: Family Provider Student in an Organized Health Care Education/Training Program; PCP Student in an Organized Health Care Education/Training Program; Referring Provider Surgery; Visit Provider Surgery | DX: Z45.2 Encounter for adjustment and management of vascular access device (principal) | CPT/HCPCS: 96523 ==

== ENCOUNTER → 2019-03-21 10:03 | Outpatient (CLI) | payer MEDICARE, OTHER, SELFPAY ==
[2019-03-21 10:55] LABS: ALB/GLOB Ratio 0.7 RATIO (0.9-2.4); AST(SGOT) 14 U/L (15-37); Alanine Aminotransfer ALT/SGPT 16 U/L (16-61); Albumin, Serum 3.1 g/dL (3.2-5.0); Alkaline Phosphatase 63 U/L (45-117); Anion Gap 7 (5-15); BUN 21 mg/dL (7-18); BUN/Creat Ratio 29.2 RATIO (10-20); Calcium,Total 8.9 mg/dL (8.5-10.1); Chloride 100 mmol/L (98-107); Creatinine, Serum 0.72 mg/dL (0.70-1.30); EST Glomerular Filtration Rate 115 mL/min (>60); Est Glom Filt Rate - Afr Amer 139 mL/min (>60); Globulin 4.7 g/dL (2.2-4.2); Glucose 105 mg/dL (74-106); PSA,Total - Annual Screen 0.36 ng/mL (0.00-4.00); Potassium 3.8 mmol/L (3.5-5.1); Protein, Total 7.8 g/dL (6.4-8.2); Sodium Level 139 mmol/L (136-145)
== END ==
PROVIDERS: Family Provider Student in an Organized Health Care Education/Training Program; PCP Student in an Organized Health Care Education/Training Program; Referring Provider Student in an Organized Health Care Education/Training Program; Visit Provider Student in an Organized Health Care Education/Training Program
DX: E11.8 Type 2 diabetes mellitus with unspecified complications (principal); Z79.4 Long term (current) use of insulin; Z12.5 Encounter for screening for malignant neoplasm of prostate
CPT/HCPCS: 36592; 80053; 84153; A4216; G0103

== ENCOUNTER → 2019-04-26 09:55 | Outpatient (CLI) | payer MEDICARE, OTHER, SELFPAY ==
[2019-04-26 12:07] LABS: Hepatitis C Antibody Non-Reactive (Nonreactive)
[2019-04-26 18:40] LABS: Xtra Tube EP Lab EXTRA TUBE
== END ==
PROVIDERS: Family Provider Student in an Organized Health Care Education/Training Program; PCP Student in an Organized Health Care Education/Training Program; Referring Provider Surgery; Visit Provider Surgery
DX: Z45.2 Encounter for adjustment and management of vascular access device (principal); Z11.59 Encounter for screening for other viral diseases
CPT/HCPCS: 36592; 86803; A4216

== ENCOUNTER → 2019-05-31 09:54 | Outpatient (CLI) | payer MEDICARE, SELFPAY | PROVIDERS: Family Provider Student in an Organized Health Care Education/Training Program; PCP Student in an Organized Health Care Education/Training Program; Referring Provider Surgery; Visit Provider Surgery | DX: Z45.2 Encounter for adjustment and management of vascular access device (principal) | CPT/HCPCS: 96523 ==

== ENCOUNTER → 2019-07-17 10:26 | Outpatient (CLI) | payer MEDICARE, SELFPAY | PROVIDERS: PCP Student in an Organized Health Care Education/Training Program; Referring Provider Surgery; Visit Provider Surgery | DX: Z45.2 Encounter for adjustment and management of vascular access device (principal) | CPT/HCPCS: 96523; A4216 ==

== ENCOUNTER → 2019-09-12 10:05 | Outpatient (CLI) | payer MEDICARE, SELFPAY ==
[2019-09-12] MEDS: 0.9% NaCl VAD Flush IV (10:17)
[2019-09-12] MEDS: 0.9 % NaCl (Sterile) Posiflush 10 mL IV (10:17)
== END ==
PROVIDERS: PCP Student in an Organized Health Care Education/Training Program; Referring Provider Surgery; Visit Provider Surgery
DX: Z45.2 Encounter for adjustment and management of vascular access device (principal); G82.20 Paraplegia, unspecified
CPT/HCPCS: 96523; A4216

== ENCOUNTER → 2019-11-12 09:49 | Outpatient (CLI) | payer MEDICARE, SELFPAY ==
[2019-11-12] MEDS: 0.9 % NaCl (Sterile) Posiflush 10 mL IV (10:06)
[2019-11-12] MEDS: 0.9% NaCl VAD Flush IV (10:06)
[2019-11-12 10:47] LABS: Anion Gap 5 (5-15); BUN 21 mg/dL (7-18); BUN/Creat Ratio 29.8 RATIO (10-20); Calcium,Total 9.1 mg/dL (8.5-10.1); Chloride 101 mmol/L (98-107); Cholesterol 100 mg/dL (200); EST Glomerular Filtration Rate 118 mL/min (>60); Est Glom Filt Rate - Afr Amer 143 mL/min (>60); Glucose 108 mg/dL (74-106); High Density Lipoprotein 28 mg/dL; Potassium 3.7 mmol/L (3.5-5.1); Sodium Level 139 mmol/L (136-145); Triglycerides 130 mg/dL; Very Low Density Lipoprotein 26 mg/dL (5-40)
[2019-11-12 13:43] LABS: Hepatitis C Antibody Non-Reactive (Nonreactive)
[2019-11-12 18:27] LABS: Xtra Tube EP Lab EXTRA TUBE
== END ==
PROVIDERS: PCP Student in an Organized Health Care Education/Training Program; Referring Provider Surgery; Visit Provider Surgery
DX: Z45.2 Encounter for adjustment and management of vascular access device (principal); E11.8 Type 2 diabetes mellitus with unspecified complications; Z12.5 Encounter for screening for malignant neoplasm of prostate; Z11.59 Encounter for screening for other viral diseases; E78.5 Hyperlipidemia, unspecified; G82.20 Paraplegia, unspecified; Z79.4 Long term (current) use of insulin
CPT/HCPCS: 36591; 80048; 80061; 86803; A4216

== ENCOUNTER → 2020-01-02 09:28 | Outpatient (CLI) | payer MEDICARE, SELFPAY ==
[2020-01-02] MEDS: 0.9 % NaCl (Sterile) Posiflush 10 mL IV (09:49)
== END ==
PROVIDERS: PCP Student in an Organized Health Care Education/Training Program; Referring Provider Surgery; Visit Provider Surgery
DX: Z45.2 Encounter for adjustment and management of vascular access device (principal); G82.20 Paraplegia, unspecified
CPT/HCPCS: 96523

== ENCOUNTER → 2020-03-06 09:29 | Outpatient (CLI) | payer MEDICARE, SELFPAY ==
[2020-03-06] MEDS: 0.9 % NaCl (Sterile) Posiflush 10 mL IV (10:05)
[2020-03-06] MEDS: 0.9% NaCl VAD Flush IV (10:05)
== END ==
PROVIDERS: PCP Student in an Organized Health Care Education/Training Program; Referring Provider Surgery; Visit Provider Surgery
DX: Z45.2 Encounter for adjustment and management of vascular access device (principal)
CPT/HCPCS: 96523; A4216

== ENCOUNTER → 2020-05-08 09:23 | Outpatient (CLI) | payer MEDICARE, SELFPAY ==
[2020-05-08] MEDS: 0.9 % NaCl (Sterile) Posiflush 10 mL IV (09:32)
== END ==
PROVIDERS: PCP Student in an Organized Health Care Education/Training Program; Referring Provider Surgery; Visit Provider Surgery
DX: Z45.2 Encounter for adjustment and management of vascular access device (principal); G82.20 Paraplegia, unspecified; Z87.2 Personal history of diseases of the skin and subcutaneous tissue
CPT/HCPCS: 96523

== ENCOUNTER → 2020-07-03 09:20 | Outpatient (CLI) | payer MEDICARE, OTHER, SELFPAY ==
[2020-07-03] MEDS: 0.9 % NaCl (Sterile) Posiflush 10 mL IV (09:28)
== END ==
PROVIDERS: PCP Student in an Organized Health Care Education/Training Program; Referring Provider Surgery; Visit Provider Surgery
DX: Z45.2 Encounter for adjustment and management of vascular access device (principal); Z87.2 Personal history of diseases of the skin and subcutaneous tissue; G82.20 Paraplegia, unspecified
CPT/HCPCS: 96523

== ENCOUNTER → 2020-08-28 09:40 | Outpatient (CLI) | payer MEDICARE, OTHER, SELFPAY ==
[2020-08-28] MEDS: 0.9% NaCl VAD Flush IV (09:49)
== END ==
PROVIDERS: PCP Student in an Organized Health Care Education/Training Program; Referring Provider Surgery; Visit Provider Surgery
DX: Z45.2 Encounter for adjustment and management of vascular access device (principal); G82.20 Paraplegia, unspecified; Z87.898 Personal history of other specified conditions
CPT/HCPCS: 96523; A4216

== ENCOUNTER → 2020-10-02 08:16 | Outpatient (CLI) | payer MEDICARE, OTHER, SELFPAY ==
[2020-09-22 14:01] VITALS: BMI 28.8
--- NOTE | 2020-10-02 08:20 | CT_ITS ---
STUDY: CT PELVIS WITHOUT CONTRAST REASON FOR EXAM: Male, 70 years old. OSTEOMYELITIS RADIATION DOSAGE (If Supplied By Facility): CTDIvol = ( 28.13 ) mGy, DLP = ( 1172.41 ) mGycm TECHNIQUE: Transaxial imaging of the pelvis was performed with oral contrast, and without intravenous administration of contrast material. Individualized dose optimization techniques were used for this CT. COMPARISON: Comparison is made with prior examination dated 11/22/2016. FINDINGS: There is evidence of a staghorn calculus in the right kidney. The kidney is seen in the pelvis. Multiple large calculi are seen within the bladder. A CHRISTIANSON catheter is seen within the urinary bladder. The urinary bladder is empty. Calculi are also seen within the proximal prostatic urethra. Normal visualized small intestine. Normal visualized colon. There is no pelvic fluid. There is no pelvic mass lesion or lymphadenopathy. There is diffuse atherosclerotic calcification of the pelvic arteries. There is evidence of a large ulcerated lesion overlying the left inferior pubic ramus. The ulceration abuts the left inferior pubic ramus. No evidence of bony destruction. There is also evidence of a diffuse thickening of the overlying skin of both buttocks. Moderate sized right inguinal hernia containing fat. There are mild degenerative changes of the visualized lumbar spine. CT/Pelvis without IV Contrast IMPRESSION: Right staghorn calculus. Multiple large calculi are seen within the urinary bladder. Calculi are also seen within the prostatic urethra. Soft tissue ulceration overlying the posterior aspect of the left inferior pubic ramus. No evidence of osteomyelitis at this time. Electronically Signed: Edmund Gutierrez MD at 9:15 EDT , Service support ,
== END ==
PROVIDERS: PCP Student in an Organized Health Care Education/Training Program; Referring Provider Surgery; Visit Provider Surgery
DX: L98.499 Non-pressure chronic ulcer of skin of other sites with unspecified severity (principal); M86.9 Osteomyelitis, unspecified
CPT/HCPCS: 72192

== ENCOUNTER 2020-10-06 15:30 | Outpatient (RCR) | payer MEDICARE, OTHER, SELFPAY ==
[2020-09-22 14:01] VITALS: BP 115/77; PULSE 86; RESP 16; TEMP 36.6; BMI 28.8
--- NOTE | 2020-09-22 20:37 | PCM.WC.PN ---
History of Present Illness Date of Service: 09/22/20 Chief Complaint: Recurrent left ischial/perineal pressure sore, Stage IV. History of Wound: Patient is known to me from a previous complex left ischial/perineal pressure sore that necessitated multiple muscle flaps for reconstruction who presented today with a recurrence of his pressure sore. His nurse trauma therapist noticed the pressure sore developing a couple of months ago. He denies fever. He denies any trauma. His last surgery was on 06/08/16 where he underwent excision recurrent left trochanteric pressure sore, stage IV, with partial ostectomy for osteomyelitis. Reconstruction with left inferior gluteal fasciocutaneous bilobed transposition flap. He also had surgery on 10/02/15 where he underwent excision of recurrent left ischial/perineal pressure sore, stage IV, with partial ostectomy for osteomyelitis and reconstruction with left vastus lateralis muscular rotation flap and split-thickness skin graft from left posterolateral back (30 square cm). He presents at this time for further evaluation and treatment. Progress of Wound: Recurrent left ischial/perineal pressure sore, Stage IV. 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: Status: Chronic Code(s): L89.324 - Pressure ulcer of left buttock, stage 4 (2) Other chronic osteomyelitis, other site: Status: Chronic Code(s): M86.68 - Other chronic osteomyelitis, other site (3) Chronic incomplete quadriplegia: Status: Acute Code(s): G82.50 - Quadriplegia, unspecified (4) Type 2 diabetes mellitus with diabetic polyneuropathy: Status: Acute Code(s): E11.42 - Type 2 diabetes mellitus with diabetic polyneuropathy (5) 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 A wound culture was obtained today. A positive culture will necessitate antibiotic therapy. Patient will need an operative debridement of this recurrent pressure sore along with partial ostectomy for osteomyelitis. If positive for osteomyelitis, he will need longwall foreman IV antibiotics. The surgery will be done under general anesthesia with a surgical observation overnight stay in the hospital. There is concern about the close proximity of this recurrent pressure sore to the anal opening. If there is erosion into the anal mucosa, it won't worsen the pressure sore, but the pressure sore will not heal unless a proctectomy is done. That surgery would need to be done at a tertiary center. Also due to the size of the recurrent pressure sore, the availability of local flaps is limited. Bilateral gracilis muscle flaps can be used but may not be enough. Discussed with the patient that due to the large size of the recurrent pressure sore and lack of availability of local flaps, a total thigh flap can be used for soft tissue to close the defect which would necessitate an amputation. He is aware of that possibility as a last resort and voices understanding. With this recurrent pressure sore, I anticipate increased metabolic demands. Encourage nutritional supplementation with protein to help the healing process. He states he has a specialty bed at home but it is in need of repair. Will order another one. Will order a CT Pelvis to look for evidence of osteomyelitis. That can be done at his next visit. Followup 2 weeks. Charges/Coding Procedures Integumentary [id number]: [id number] Char musc/fascia 20 sq cm/< ( ICD-10 - L89.324, M86.68, G82.50, E11.42, Z86.14) Add On Codes: 87598 Char musc/fascia add-on ( ICD-10 - L89.324, M86.68, G82.50, E11.42, Z86.14) Debridement Note Debridement Note Post-Debridement Measurements and Additional Note: Post-Debridement Measurements/Treatment WC - Nurse 2 - General Ulcer CM Notes Start: 09/22/20 13:53 Freq: Status: Active Protocol: Activity Type Activity Date Activity User E-Sign Co-Sign Detail Recorded Client Recorded Date Recorded By Document 09/22/20 14:48 CHRISTIANO [id number] 09/22/20 14:59 CHRISTIANO 09/22/20 14:48 Wound Center Nurse 2 #16- Left ischial/perineal -Time 14:56 -Correct Patient Yes -Correct Side, Site, Position Yes -Correct Procedure Yes -Procedure Performed Yes -Type of Procedure Debridement -Clinical Debridement Muscle / Fascia -Tissue Removed Muscle,Fascia -Post Debridement (cm) - Length 4 -Post Debridement (cm) - Width 5.5 -Post Debridement (cm) - Depth 3 -Total Square (Post) (cm) 22.0 -Area of Debridement (cm) - Length 4 -Area of Debridement (cm) - Width 5.5 -Total Square (Area) (cm) 22.0 -Tunneling No -Undermining/Tunneling No -Wound/Ulcer Outcome Not Healed -Ulcer Cleansing Rinsed/ Irrigated with Saline -Foul Odor after Cleansing No -Bioengineered Tissue No -Bleeding Controlled with Pressure -Offloading No -Treatment Response Procedure Tolerated Well -Debridement - Muscle / Fascia, 1st Yes 20sq cm -Debridement, Muscle/Fascia, ea addt'l 1 20sq cm or part thereof Pain Scale: 0-10 Numeric Is Patient Pain Free? Yes - Nurse 3 - General Ulcer D/C NN Start: 09/22/20 13:53 Freq: Status: Active Protocol: Activity Type Activity Date Activity User E-Sign Co-Sign Detail Recorded Client Recorded Date Recorded By Document 09/22/20 15:10 CORINA [id number] 09/22/20 15:11 CORINA 09/22/20 15:10 Wound Care Nurse 3 #16- Left ischial/perianal -Ulcer Cleansing Rinsed/ Irrigated with Saline -Other Dressing wet to dry dressing -Primary Dressing Covered/Secured with Dry Gauze, Secured with Tape Pain Scale: 0-10 Numeric Is Patient Pain Free? Yes - Visit Discharge Discharge Condition Stable Ambulatory Status Wheelchair Transportation Private Auto Wound debrided: #16 Left ischial/perineal area. Laterality: Left Wound Grade/Stage: Stage IV. Type of Debridement: Excisional debridement Anesthesia Used: 4% Lidocaine Solution Depth: Down to and including healthy tissue, in the subcutaneous layer, to muscle and to bone (bone is palpable but not exposed.) Percentage of wound debrided: 100 Instrument Used: 7mm curette, Forceps and - (scissors) Tissue Removed: subcutaneous tissue and muscle. Severity: Fat Layer Exposed (muscle is exposed. bone is palpable but not exposed.) Amount of bleeding with debridement: Mild Bleeding Controlled with: Pressure Patient tolerated procedure: Patient tolerated procedure well
[2020-10-06 15:32] VITALS: BP 109/66; PULSE 83; RESP 18; TEMP 36; BMI 28.8
--- NOTE | 2020-10-06 17:02 | PN.PCM_ITS ---
History of Present Illness Date of Service: 10/06/20 Chief Complaint: Recurrent left ischial/perineal pressure sore, Stage IV. History of Wound: Patient is known to me from a previous complex left ischial/perineal pressure sore that necessitated multiple muscle flaps for reconstruction who presented today with a recurrence of his pressure sore. His nurse wireless communications engineer noticed the pressure sore developing a couple of months ago. He denies fever. He denies any trauma. His last surgery was on 06/08/16 where he underwent excision recurrent left trochanteric pressure sore, stage IV, with partial ostectomy for osteomyelitis. Reconstruction with left inferior gluteal fasciocutaneous bilobed transposition flap. He also had surgery on 10/02/15 where he underwent excision of recurrent left ischial/perineal pressure sore, stage IV, with partial ostectomy for osteomyelitis and reconstruction with left vastus lateralis muscular rotation flap and split-thickness skin graft from left posterolateral back (30 square cm). He had a CT Pelvis on 10/02/20 which showed staghorn calculus. Multiple large calculi are seen within the urinary bladder. Calculi are also seen within the prostatic urethra. Soft tissue ulceration overlying the posterior aspect of the left inferior pubic ramus. No evidence of osteomyelitis at this time. A wound culture from 09/22/20 showed Pseudomonas aeroginosa, Acinetobacter baumannii, and Corynebacterium striatum. He was placed on Levaquin. Today he denies fever. His appetite is ok. Progress of Wound: Improved. Objective Data Objective Data Vital Signs: Vital Signs Temp Pulse Resp BP 96.8 F L 83 18 109/66 10/06/20 15:32 10/06/20 15:32 10/06/20 15:32 10/06/20 15:32 Oxygen Delivery Method Room Air Body Mass Index (BMI) 28.8 Lab / Micro Data Micro: Microbiology 09/22/20 Unknown Wound Abcess - Ischium Gram Stain - Final 09/22/20 Unknown Wound Abcess - Ischium Wound Culture - Final Pseudomonas aeroginosa Acinetobacter baumannii Corynebacterium striatum 09/22/20 Unknown Wound Abcess - Ischium Anaerobic Culture - Final No anaerobic bacteria isolated. Charges/Coding Procedures Integumentary 111xxx-113xx: 19207 Char musc/fascia 20 sq cm/< ( ICD-10 - L89.324, M86.68, G82.50, E11.42, Z86.14) Add On Codes: 53024 Char musc/fascia add-on ( ICD-10 - L89.324, M86.68, G82.50, E11.42, Z86.14) Debridement Note Debridement Note Post-Debridement Measurements and Additional Note: Post-Debridement Measurements/Treatment WC - Nurse 1 - General Ulcer Assessment Start: 09/22/20 13:53 Freq: Status: Active Protocol: THERESE Activity Type Activity Date Activity User E-Sign Co-Sign Detail Recorded Client Recorded Date Recorded By Document 09/22/20 14:01 DL [id number] 09/22/20 14:19 DL Document 10/06/20 15:32 PL [id number] 10/06/20 15:42 PL 09/22/20 10/06/20 14:01 15:32 WC - Today's Visit Information Type of service Initial Visit Follow-up Visit (Physician/BODY FITTER ) Arrival Mode Wheelchair Wheelchair Transfer Assistance Manual Manual Transfer Assist (Other) x3 Patient Identification Verified (Name & Yes Yes ) Patient Requires Transmission-Based No No Precautions Safety Precautions NA Finger Stick Blood Sugar(mg/dl) (if 149 indicated): Blood Sugar Stated by Patient Height and Weight Body Mass Index (BMI) 28.8 28.8 BMI Classification Overweight Overweight Vital Signs Temperature (97.8 F-99.1 F) 97.9 F 96.8 F L Temperature Source Temporal Temporal Pulse Rate (60-100) 86 83 Pulse Location Monitor Respiratory Rate (12-18) 16 18 Respiratory rate source Observation Oxygen Delivery Method Room Air Blood Pressure (90/60-120/80) 115/77 109/66 Blood Pressure Mean (mm Hg) 89 80 Source Monitor Position Sitting Blood Pressure Location Right Arm History Since Last Visit- (Skip if this is Patient's initial visit) Have you changed medications since your No last visit? Any new allergies or adverse reactions No Had a fall/change in ADL's that may No increase risk of falls Signs or symptoms of abuse and/or No neglect since last visit Have you been in the hospital since your No last visit? Has dressing in place as prescribed Yes Has compression in place as prescribed N/A Has offloadiing in place as prescribed N/A Experienced any changes in pain level or No management Pain Scale: 0-10 Numeric Is Patient Pain Free? Yes WC - Nurse 1 - General Ulcer Measurement Start: 09/22/20 13:53 Freq: Status: Active Protocol: Activity Type Activity Date Activity User E-Sign Co-Sign Detail Recorded Client Recorded Date Recorded By Document 09/22/20 14:01 DL [id number] 09/22/20 14:19 DL Document 10/06/20 15:32 PL [id number] 10/06/20 15:42 PL 09/22/20 10/06/20 14:01 15:32 Wound Center Nurse 1 #16- Francia Anal -Combined with other wound No -Combined with (Name of Wound-Exactly 6.0 as it is documented) -Current Size (cm) - Length 3 6.0 -Current Size (cm) - Width 5 5.0 -Current Size (cm) - Depth 2.2 -Total Square Cm 15 30.00 -Date of Last Picture (Recall this 09/22/20 field) -Photo Taken Yes No -Epithelialization None Present None Present -Tunneling Yes -Tunneling Position (O'clock) 3 -Tunneling Distance (cm) 4.0 -Undermining/Tunneling No -Circular Undermining No -Classification - Thickness Full Thickness with Exposed Support Structure -Exudate Amt Large Large -Exudate Type Serosanguineous Serosanguineous -Wound Margin Distinct, Outline Attached -Granulation Amt None Present (0 Large (67-100%) %) -Granulation Quality [place],Red -Slough/Fibrin Yes Yes -Necrosis Amt Large (67-100%) Small (1-33%) -Necrotic Tissue Type Adherent Slough Adherent Slough -Structure Exposed Bone -Texture (Francia-wound Skin Appearance) Assessed, Scarring -Moisture (Francia-wound Skin Appearance) Assessed -Color (Francia-wound Skin Appearance) Assessed, Erythema -Temperature (Francia-wound Skin No Abnormality No Abnormality Appearance) (Pt Warm) (Pt Warm) -Tenderness on Palpation (Francia-wound No No Skin Appearance) -Ulcer Cleansing soapy water Soap and water -Foul Odor after Cleansing No No -Anesthetic Used 4% Lidocaine 4% Lidocaine Solution Solution WC - Nurse 2 - General Ulcer CM Notes Start: 09/22/20 13:53 Freq: Status: Active Protocol: Activity Type Activity Date Activity User E-Sign Co-Sign Detail Recorded Client Recorded Date Recorded By Document 09/22/20 14:48 [id number] 09/22/20 14:59 Document 10/06/20 15:55 [id number] 10/06/20 15:58 09/22/20 10/06/20 14:48 15:55 Wound Center Nurse 2 #16- Francia Anal -Time 14:56 15:55 -Correct Patient Yes Yes -Correct Side, Site, Position Yes Yes -Correct Procedure Yes Yes -Procedure Performed Yes Yes -Type of Procedure Debridement Debridement -Clinical Debridement Muscle / Fascia Muscle / Fascia -Tissue Removed Muscle,Fascia Muscle,Fascia -Post Debridement (cm) - Length 4 6 -Post Debridement (cm) - Width 5.5 6 -Post Debridement (cm) - Depth 3 5 -Total Square (Post) (cm) 22.0 36 -Area of Debridement (cm) - Length 4 6 -Area of Debridement (cm) - Width 5.5 6 -Total Square (Area) (cm) 22.0 36 -Tunneling No No -Undermining/Tunneling No No -Circular Undermining No -Wound/Ulcer Outcome Not Healed Not Healed -Ulcer Cleansing Rinsed/ Rinsed/ Irrigated with Irrigated with Saline Saline -Foul Odor after Cleansing No No -Bioengineered Tissue No No -Bleeding Controlled with Pressure Pressure -Offloading No No -Treatment Response Procedure Procedure Tolerated Well Tolerated Well -Debridement - Muscle / Fascia, 1st Yes Yes 20sq cm -Debridement, Muscle/Fascia, ea addt'l 1 1 20sq cm or part thereof Pain Scale: 0-10 Numeric Is Patient Pain Free? Yes Yes WC - Nurse 3 - General Ulcer D/C NN Start: 09/22/20 13:53 Freq: Status: Active Protocol: Activity Type Activity Date Activity User E-Sign Co-Sign Detail Recorded Client Recorded Date Recorded By Document 09/22/20 15:10 CORINA [id number] 09/22/20 15:11 Document 10/06/20 16:05 [id number] 10/06/20 16:06 09/22/20 10/06/20 15:10 16:05 Wound Care Nurse 3 #16- Francia Anal -Ulcer Cleansing Rinsed/ Rinsed/ Irrigated with Irrigated with Saline Saline -Foul Odor after Cleansing No -Other Dressing wet to dry normal saline dressing packed gauze -Primary Dressing Covered/Secured with Dry Gauze, Dry Gauze, Secured with Secured with Tape Tape Pain Scale: 0-10 Numeric Is Patient Pain Free? Yes Yes WC - Visit Discharge Discharge Condition Stable Stable Ambulatory Status Wheelchair Wheelchair Transportation Private Auto Private Auto Medication Reconcilliation completed & Yes provided to patient/care provider Clinical Summary of Care Provided Yes Wound debrided: #16 Left ischial/perineal area. Laterality: Left Wound Grade/Stage: IV. Type of Debridement: Excisional debridement Anesthesia Used: 4% Lidocaine Solution Depth: Down to and including healthy tissue, in the subcutaneous layer, to muscle and to bone (bone is palpable but not exposed and not debrided.) Percentage of wound debrided: 100 Instrument Used: 5mm curette Tissue Removed: subcutaneous tissue and muscle. Severity: Fat Layer Exposed (muscle is exposed. bone is palpable but not exposed.) Amount of bleeding with debridement: Mild Bleeding Controlled with: Pressure Patient tolerated procedure: Patient tolerated procedure well
== END 2020-10-20 23:59 ==
LOC: WC 15:30
PROVIDERS: PCP Student in an Organized Health Care Education/Training Program; Visit Provider Surgery
DX: L89.324 Pressure ulcer of left buttock, stage 4 (principal); M86.68 Other chronic osteomyelitis, other site; G82.50 Quadriplegia, unspecified; E11.42 Type 2 diabetes mellitus with diabetic polyneuropathy; Z79.84 Long term (current) use of oral hypoglycemic drugs; Z79.82 Long term (current) use of aspirin; Z79.890 Hormone replacement therapy; Z79.899 Other long term (current) drug therapy; Z86.14 Personal history of Methicillin resistant Staphylococcus aureus infection; Z86.19 Personal history of other infectious and parasitic diseases
CPT/HCPCS: 11043; 11046; 87070; 87075; 87077; 87186; 87205; 99213; G0463

== ENCOUNTER → 2020-11-10 09:13 | Outpatient (CLI) | payer MEDICARE, OTHER, SELFPAY ==
[2020-10-27 13:40] VITALS: BMI 28.8
[2020-11-10] MEDS: 0.9% NaCl VAD Flush IV (09:25)
== END ==
PROVIDERS: PCP Student in an Organized Health Care Education/Training Program; Referring Provider Surgery; Visit Provider Surgery
DX: Z45.2 Encounter for adjustment and management of vascular access device (principal); E11.69 Type 2 diabetes mellitus with other specified complication; M86.68 Other chronic osteomyelitis, other site; L89.324 Pressure ulcer of left buttock, stage 4; L89.320 Pressure ulcer of left buttock, unstageable; E11.42 Type 2 diabetes mellitus with diabetic polyneuropathy; G82.50 Quadriplegia, unspecified; N20.0 Calculus of kidney
CPT/HCPCS: 11042; 11043; 87070; 87075; 87205; 96523; A4216

== ENCOUNTER 2020-11-10 10:00 | Outpatient (RCR) | payer MEDICARE, OTHER, SELFPAY ==
[2020-10-21 00:05] VITALS: BP 109/66; PULSE 83; RESP 18; TEMP 36
[2020-10-27 13:40] VITALS: BP 90/49; PULSE 79; RESP 16; TEMP 35.7; BMI 28.8
--- NOTE | 2020-10-27 15:44 | PCM.WC.PN ---
History of Present Illness Date of Service: 10/27/20 Chief Complaint: Recurrent left ischial/perineal pressure sore, Stage IV. History of Wound: Patient is known to me from a previous complex left ischial/perineal pressure sore that necessitated multiple muscle flaps for reconstruction who presented today with a recurrence of his pressure sore. His nurse electric milkers installer noticed the pressure sore developing a couple of months ago. He denies fever. He denies any trauma. His last surgery was on 06/08/16 where he underwent excision recurrent left trochanteric pressure sore, stage IV, with partial ostectomy for osteomyelitis. Reconstruction with left inferior gluteal fasciocutaneous bilobed transposition flap. He also had surgery on 10/02/15 where he underwent excision of recurrent left ischial/perineal pressure sore, stage IV, with partial ostectomy for osteomyelitis and reconstruction with left vastus lateralis muscular rotation flap and split-thickness skin graft from left posterolateral back (30 square cm). He had a CT Pelvis on 10/02/20 which showed staghorn calculus. Multiple large calculi are seen within the urinary bladder. Calculi are also seen within the prostatic urethra. Soft tissue ulceration overlying the posterior aspect of the left inferior pubic ramus. No evidence of osteomyelitis at this time. A wound culture from 09/22/20 showed Pseudomonas aeroginosa, Acinetobacter baumannii, and Corynebacterium striatum. He was placed on Levaquin. Today he denies fever. His appetite is ok. Progress of Wound: The main ulcer is slightly improved with some superficial extension toward the right ischial area. Objective Data Objective Data Vital Signs: Vital Signs Temp Pulse Resp BP 96.2 F L 79 16 90/49 L 10/27/20 13:40 10/27/20 13:40 10/27/20 13:40 10/27/20 13:40 Body Mass Index (BMI) 28.8 Charges/Coding Procedures Integumentary 111xxx-113xx: 21949 Char musc/fascia 20 sq cm/< (ICD-10 - L89.324, M86.68, G82.50, E11.42, Z86.14) Add On Codes: 03265 Char musc/fascia add-on (ICD-10 - L89.324, M86.68, G82.50, E11.42, Z86.14) Debridement Note Debridement Note Post-Debridement Measurements and Additional Note: Post-Debridement Measurements/Treatment - Nurse 1 - General Ulcer Assessment Start: 10/27/20 13:39 Freq: Status: Active Protocol: THERESE Activity Type Activity Date Activity User E-Sign Co-Sign Detail Recorded Client Recorded Date Recorded By Document 10/27/20 13:40 [facility] [id number] 10/27/20 13:54 [facility] 10/27/20 13:40 WC - Today's Visit Information Type of service Follow-up Visit (Physician/LASTING MACHINE OPERATOR ) Arrival Mode Wheelchair Transfer Assistance Manual Transfer Assist (Other) 3 total assist/ lift Patient Identification Verified (Name & Yes ) Patient Requires Transmission-Based No Precautions Height and Weight Body Mass Index (BMI) 28.8 BMI Classification Overweight Vital Signs Temperature (97.8 F-99.1 F) 96.2 F L Temperature Source Temporal Pulse Rate (60-100) 79 Pulse Location Monitor Respiratory Rate (12-18) 16 Blood Pressure (90/60-120/80) 90/49 L Blood Pressure Mean (mm Hg) 62 Source Monitor Position Sitting Blood Pressure Location Left Arm History Since Last Visit- (Skip if this is Patient's initial visit) Have you changed medications since your No last visit? Any new allergies or adverse reactions No Had a fall/change in ADL's that may No increase risk of falls Signs or symptoms of abuse and/or No neglect since last visit Have you been in the hospital since your No last visit? Has dressing in place as prescribed Yes Has compression in place as prescribed N/A Has offloadiing in place as prescribed N/A Experienced any changes in pain level or No management Pain Scale: 0-10 Numeric Is Patient Pain Free? Yes - Nurse 1 - General Ulcer Measurement Start: 10/27/20 13:39 Freq: Status: Active Protocol: Activity Type Activity Date Activity User E-Sign Co-Sign Detail Recorded Client Recorded Date Recorded By Document 10/27/20 13:40 [facility] [id number] 10/27/20 13:54 [facility] 10/27/20 13:40 Wound Center Nurse 1 #16- Francia Anal -Combined with other wound No -Current Size (cm) - Length 5.5 -Current Size (cm) - Width 4.8 -Current Size (cm) - Depth 2.2 -Total Square Cm 26.40 -Tunneling Position (O'clock) 11 -Tunneling Distance (cm) 3.8 -Exudate Amt Medium -Exudate Type Serosanguineous -Wound Margin Distinct, Outline Attached -Granulation Amt Large (67-100%) -Granulation Quality Red -Necrosis Amt Small (1-33%) -Necrotic Tissue Type Adherent Slough -Texture (Francia-wound Skin Appearance) Assessed, Scarring -Moisture (Francia-wound Skin Appearance) No Abnormality, Assessed -Color (Francia-wound Skin Appearance) No Abnormality, Assessed -Temperature (Francia-wound Skin No Abnormality Appearance) (Pt Warm) -Tenderness on Palpation (Francia-wound No Skin Appearance) -Ulcer Cleansing soap and water -Foul Odor after Cleansing No -Anesthetic Used 4% Lidocaine Solution CHANTELLE - Nurse 2 - General Ulcer CM Notes Start: 10/27/20 13:39 Freq: Status: Active Protocol: Activity Type Activity Date Activity User E-Sign Co-Sign Detail Recorded Client Recorded Date Recorded By Document 10/27/20 14:15 CHRISTIANO [id number] 10/27/20 14:21 CHRISTIANO 10/27/20 14:15 Wound Center Nurse 2 -Time 14:18 -Correct Patient Yes -Correct Side, Site, Position Yes -Correct Procedure Yes -Procedure Performed Yes -Type of Procedure Debridement -Clinical Debridement Muscle / Fascia -Tissue Removed Muscle,Fascia -Post Debridement (cm) - Length 9 -Post Debridement (cm) - Width 4 -Post Debridement (cm) - Depth 3.5 -Total Square (Post) (cm) 36 -Area of Debridement (cm) - Length 9 -Area of Debridement (cm) - Width 4 -Total Square (Area) (cm) 36 -Tunneling No -Undermining/Tunneling No -Circular Undermining No -Wound/Ulcer Outcome Not Healed -Ulcer Cleansing Rinsed/ Irrigated with Saline -Foul Odor after Cleansing No -Bioengineered Tissue No -Bleeding Controlled with Pressure -Type of Offloading Total Contact Cast (TCC) - Left ($) -Treatment Response Procedure Tolerated Well -Debridement - Muscle / Fascia, 1st Yes 20sq cm -Debridement, Muscle/Fascia, ea addt'l 1 20sq cm or part thereof Pain Scale: 0-10 Numeric Is Patient Pain Free? Yes CHANTELLE - Nurse 3 - General Ulcer D/C NN Start: 10/27/20 13:39 Freq: Status: Active Protocol: Activity Type Activity Date Activity User E-Sign Co-Sign Detail Recorded Client Recorded Date Recorded By Document 10/27/20 14:26 [id number] 10/27/20 14:26 10/27/20 14:26 Wound Care Nurse 3 #16- Francia Anal -Ulcer Cleansing Rinsed/ Irrigated with Saline -Negative Pressure Wound Therapy N/A -Primary Dressing Covered/Secured with Dry Gauze & Roll Gauze, Secured with Tape Pain Scale: 0-10 Numeric Is Patient Pain Free? Yes WC - Visit Discharge Discharge Condition Stable Ambulatory Status Wheelchair Transportation Private Auto Medication Reconcilliation completed & Yes provided to patient/care provider Clinical Summary of Care Provided Yes Wound debrided: #16 Left ischial/perineal area. Laterality: Left Wound Grade/Stage: IV. Type of Debridement: Excisional debridement Anesthesia Used: 4% Lidocaine Solution Depth: Down to and including healthy tissue, in the subcutaneous layer, to muscle and to bone (bone is palpable but not exposed and not debrided.) Percentage of wound debrided: 100 Instrument Used: 7mm curette Tissue Removed: subcutaneous tissue and muscle. Severity: Fat Layer Exposed (muscle is exposed. bone is palpable but not exposed and not debrided.) Amount of bleeding with debridement: Mild Bleeding Controlled with: Pressure and Compression and gauze Patient tolerated procedure: Patient tolerated procedure well Assessment/Plan Assessment/Plan (1) Other chronic osteomyelitis, other site: CODE(S): M86.68 - Other chronic osteomyelitis, other site (2) Quadriplegia: CODE(S): G82.50 - Quadriplegia, unspecified (3) Type 2 diabetes mellitus with diabetic polyneuropathy: CODE(S): E11.42 - Type 2 diabetes mellitus with diabetic polyneuropathy (4) History of methicillin resistant Staphylococcus aureus infection: CODE(S): Z86.14 - Personal history of Methicillin resistant Staphylococcus aureus infection (5) Stage IV pressure ulcer of left buttock: CODE(S): L89.324 - Pressure ulcer of left buttock, stage 4 PLAN: Continue Dakin's dressing changes daily. The pressure sore has shown some improvement. The superficial abrasion toward the right side could be irritation from the Dakin's. Instructed the patient to tell his caregiver to wring out the gauze so it is just damp with the Dakin's to minimize Dakin's from irritating the surrounding skin. Continue Levaquin for wound culture from 09/22/20 which showed Pseudomonas aeroginosa, Acinetobacter baumannii, and Corynebacterium striatum. CT Pelvis from 10/02/20 did no show evidence of osteomyelitis at this time. At some point, the patient will need an operative debridement of this recurrent pressure sore along with partial ostectomy for osteomyelitis. If positive for osteomyelitis, he will need oysterman IV antibiotics. The surgery will be done under general anesthesia with a surgical observation overnight stay in the hospital. There is concern about the close proximity of this recurrent pressure sore to the anal opening. If there is erosion into the anal mucosa, it won't worsen the pressure sore, but the pressure sore will not heal unless a proctectomy is done. That surgery would need to be done at a tertiary center. Also due to the size of the recurrent pressure sore, the availability of local flaps is limited. Bilateral gracilis muscle flaps can be used but may not be enough. Discussed with the patient that due to the large size of the recurrent pressure sore and lack of availability of local flaps, a total thigh flap can be used for soft tissue to close the defect which would necessitate an amputation. He is aware of that possibility as a last resort and voices understanding. With this recurrent pressure sore, I anticipate increased metabolic demands. Encourage nutritional supplementation with protein to help the healing process. The patient would like to hold off on surgery for as long as possible. He will let us know when he wants to proceed with the surgery. It would be done under sedation anesthesia or general anesthesia with a surgical observation overnight stay in the hospital. The VAC will be placed the next day if it can maintain a seal. Otherwise would continue with the Dakin's dressing changes. Soft tissue and bone would be sent to Pathology for analysis to evaluate for osteomyelitis and to Microbiology for culture. A positive culture will necessitate antibiotic therapy. Followup 3 weeks.
--- NOTE | 2020-10-30 09:21 | WC ---
Kay from called letting us know patient has a stage 2 pressure ulcer to his left upper thigh and they have begun to cover it with a foam pad and will change it 3x/week. She stated that there is some induration to the general area. I notified Dr Aguiar regarding this matter for any further orders. I called the nurse back at [phone] to let her know I received her update and to have her continue monitoring it and to keep it covered. If s/s of infection occur, to call to make an appt sooner than his scheduled appt with Dr Aguiar. Any further orders if obtained from Dr Aguiar, will be given to the home health nurse.
[2020-11-10 10:05] VITALS: BMI 28.8
--- NOTE | 2020-11-10 11:55 | PN.PCM_ITS ---
History of Present Illness Date of Service: 11/10/20 Chief Complaint: Recurrent left ischial/perineal pressure sore, Stage IV. History of Wound: Patient is known to me from a previous complex left ischial/perineal pressure sore that necessitated multiple muscle flaps for reconstruction who presented today with a recurrence of his pressure sore. His nurse sliver handler noticed the pressure sore developing a couple of months ago. He denies fever. He denies any trauma. His last surgery was on 06/08/16 where he underwent excision recurrent left trochanteric pressure sore, stage IV, with partial ostectomy for osteomyelitis. Reconstruction with left inferior gluteal fasciocutaneous bilobed transposition flap. He also had surgery on 10/02/15 where he underwent excision of recurrent left ischial/perineal pressure sore, stage IV, with partial ostectomy for osteomyelitis and reconstruction with left vastus lateralis muscular rotation flap and split-thickness skin graft from left posterolateral back (30 square cm). He had a CT Pelvis on 10/02/20 which showed staghorn calculus. Multiple large calculi are seen within the urinary bladder. Calculi are also seen within the prostatic urethra. Soft tissue ulceration overlying the posterior aspect of the left inferior pubic ramus. No evidence of osteomyelitis at this time. A wound culture from 09/22/20 showed Pseudomonas aeroginosa, Acinetobacter baumannii, and Corynebacterium striatum. He was placed on Levaquin. Today he also has a new left buttock pressure ulcer that just started over the past week. Today he denies fever. His appetite is ok. Progress of Wound: The left ischial/francia anal ulcer is stable. He has a new ulcer on left buttocks that is fibrous. Culture obtained of new ulcer. Objective Data Objective Data Vital Signs: Vital Signs Temp Pulse Resp BP 96.2 F L 79 16 90/49 L 10/27/20 13:40 10/27/20 13:40 10/27/20 13:40 10/27/20 13:40 Body Mass Index (BMI) 28.8 Charges/Coding Addendum Addendum: 33906 - Left ischial/ francia anal ulcer into the muscle 04247 - new left buttock ulcer in subcutaneous tissue Procedures Integumentary 111xxx-113xx: 17428 Char subq tissue 20 sq cm/< (New left buttock ulcer) Physical Exam Const alert and oriented x3 General Appearance: cooperative HEENT normocephalic Eyes PERRL Lymph Lymphatic: no lymphedema noted Resp normal respiratory effort Cardio regular rate GI non-tender Palpation: soft Extremity normal capillary refill Skin Wound Narrative: Left ischial/francia anal ulcer is pink with tunnel from 9-12 o'clock. No bone palpated. New ulcer on left buttocks is fibrous, superficial. Francia wounds are excoriated. Neuro CN's II-XII intact bilaterally Psych Appearance: grossly normal Debridement Note Debridement Note Post-Debridement Measurements and Additional Note: Post-Debridement Measurements/Treatment - Nurse 1 - General Ulcer Assessment Start: 10/27/20 13:39 Freq: Status: Active Protocol: THERESE Activity Type Activity Date Activity User E-Sign Co-Sign Detail Recorded Client Recorded Date Recorded By Document 10/27/20 13:40 [facility] [id number] 10/27/20 13:54 [facility] Document 11/10/20 10:05 [id number] 11/10/20 10:09 [place] 10/27/20 11/10/20 13:40 10:05 - Today's Visit Information Type of service Follow-up Visit Follow-up Visit (Physician/FOOD AND BEVERAGE SERVICE MANAGER (Physician/FOOD AND BEVERAGE SERVICE MANAGER ) ) Arrival Mode Wheelchair Wheelchair Transfer Assistance Manual Transfer Assist (Other) 3 total assist/ lift Patient Identification Verified (Name & Yes Yes ) Patient Requires Transmission-Based No Precautions Height and Weight Body Mass Index (BMI) 28.8 28.8 BMI Classification Overweight Overweight Vital Signs Temperature (97.8 F-99.1 F) 96.2 F L Temperature Source Temporal Temporal Pulse Rate (60-100) 79 Pulse Location Monitor Monitor Respiratory Rate (12-18) 16 Blood Pressure (90/60-120/80) 90/49 L Blood Pressure Mean (mm Hg) 62 Source Monitor Monitor Position Sitting Semi-Fowlers Blood Pressure Location Left Arm Left Arm History Since Last Visit- (Skip if this is Patient's initial visit) Have you changed medications since your No No last visit? Any new allergies or adverse reactions No No Had a fall/change in ADL's that may No No increase risk of falls Signs or symptoms of abuse and/or No No neglect since last visit Have you been in the hospital since your No No last visit? Has dressing in place as prescribed Yes Yes Has compression in place as prescribed N/A N/A Has offloadiing in place as prescribed N/A N/A Experienced any changes in pain level or No No management Pain Scale: 0-10 Numeric Is Patient Pain Free? Yes Yes WC - Nurse 1 - General Ulcer Measurement Start: 10/27/20 13:39 Freq: Status: Active Protocol: Activity Type Activity Date Activity User E-Sign Co-Sign Detail Recorded Client Recorded Date Recorded By Document 10/27/20 13:40 [facility] [id number] 10/27/20 13:54 [facility] Document 11/10/20 10:05 KR [id number] 11/10/20 10:09 KR 10/27/20 11/10/20 13:40 10:05 Wound Center Nurse 1 #17 Left Buttock -Current Size (cm) - Length 4.2 -Current Size (cm) - Width 3.5 -Current Size (cm) - Depth 0.1 -Total Square Cm 14.70 -Exudate Amt Medium -Exudate Type Serosanguineous -Wound Margin Distinct, Outline Attached -Granulation Amt Medium (34-66%) -Granulation Quality Red -Necrosis Amt Medium (34-66%) -Necrotic Tissue Type Adherent Slough -Texture (Francia-wound Skin Appearance) Assessed, Scarring -Moisture (Francia-wound Skin Appearance) No Abnormality, Assessed -Temperature (Francia-wound Skin No Abnormality Appearance) (Pt Warm) -Tenderness on Palpation (Francia-wound No Skin Appearance) -Ulcer Cleansing soap and water -Foul Odor after Cleansing No -Anesthetic Used 4% Lidocaine Solution #16- Francia Anal -Combined with other wound No -Current Size (cm) - Length 5.5 7 -Current Size (cm) - Width 4.8 4 -Current Size (cm) - Depth 2.2 2.1 -Total Square Cm 26.40 28 -Tunneling Position (O'clock) 11 -Tunneling Distance (cm) 3.8 -Undermining/Tunneling Starts (O'clock 10 ) -Undermining/Tunneling Ends (O'clock) 11 -Maximum Distance (cm) 5 -Exudate Amt Medium Large -Exudate Type Serosanguineous Serosanguineous -Wound Margin Distinct, Distinct, Outline Outline Attached Attached -Granulation Amt Large (67-100%) Medium (34-66%) -Granulation Quality Red Red -Necrosis Amt Small (1-33%) Medium (34-66%) -Necrotic Tissue Type Adherent Slough Adherent Slough -Texture (Francia-wound Skin Appearance) Assessed, Assessed, Scarring Scarring -Moisture (Francia-wound Skin Appearance) No Abnormality, No Abnormality, Assessed Assessed -Color (Francia-wound Skin Appearance) No Abnormality, No Abnormality, Assessed Assessed -Temperature (Francia-wound Skin No Abnormality No Abnormality Appearance) (Pt Warm) (Pt Warm) -Tenderness on Palpation (Francia-wound No No Skin Appearance) -Ulcer Cleansing soap and water Rinsed/ Irrigated with Saline -Foul Odor after Cleansing No No -Anesthetic Used 4% Lidocaine 4% Lidocaine Solution Solution WC - Nurse 2 - General Ulcer CM Notes Start: 10/27/20 13:39 Freq: Status: Active Protocol: Activity Type Activity Date Activity User E-Sign Co-Sign Detail Recorded Client Recorded Date Recorded By Document 10/27/20 14:15 JF [id number] 10/27/20 14:21 JF Edit Result 10/27/20 14:15 JF (1) [id number] 10/29/20 16:07 PL Document 11/10/20 10:25 [id number] 11/10/20 10:35 (1) #16- Francia Anal - Type of Offloading Total Contact Cast => (TCC) - Left ($) => 10/27/20 11/10/20 14:15 10:25 Wound Center Nurse 2 #17 Left Buttock -Time 10:33 -Correct Patient Yes -Correct Side, Site, Position Yes -Correct Procedure Yes -Procedure Performed Yes -Type of Procedure Debridement -Clinical Debridement Subcutaneous -Tissue Removed Subcutaneous -Post Debridement (cm) - Length 4.3 -Post Debridement (cm) - Width 3.5 -Post Debridement (cm) - Depth 0.1 -Total Square (Post) (cm) 15.05 -Area of Debridement (cm) - Length 4.3 -Area of Debridement (cm) - Width 3.5 -Total Square (Area) (cm) 15.05 -Tunneling No -Undermining/Tunneling No -Circular Undermining No -Wound/Ulcer Outcome Not Healed -Ulcer Cleansing Rinsed/ Irrigated with Saline -Foul Odor after Cleansing No -Bioengineered Tissue No -Bleeding Controlled with Pressure -Offloading No -Treatment Response Procedure Tolerated Well -Debridement - Subq, 1st 20sq cm Yes #16- Francia Anal -Time 14:18 10:27 -Correct Patient Yes Yes -Correct Side, Site, Position Yes Yes -Correct Procedure Yes Yes -Procedure Performed Yes Yes -Type of Procedure Debridement Debridement -Clinical Debridement Muscle / Fascia Muscle / Fascia -Tissue Removed Muscle,Fascia Muscle,Fascia -Post Debridement (cm) - Length 9 3.5 -Post Debridement (cm) - Width 4 5 -Post Debridement (cm) - Depth 3.5 1.7 -Total Square (Post) (cm) 36 17.5 -Area of Debridement (cm) - Length 9 3.5 -Area of Debridement (cm) - Width 4 5 -Total Square (Area) (cm) 36 17.5 -Tunneling No -Undermining/Tunneling No Yes -Undermining/Tunneling Starts (O'clock 9 ) -Undermining/Tunneling Ends (O'clock) 12 -Maximum Distance (cm) 4.1 -Circular Undermining No No -Wound/Ulcer Outcome Not Healed Not Healed -Ulcer Cleansing Rinsed/ Rinsed/ Irrigated with Irrigated with Saline Saline -Foul Odor after Cleansing No No -Bioengineered Tissue No No -Bleeding Controlled with Pressure Pressure -Offloading No -Treatment Response Procedure Procedure Tolerated Well Tolerated Well -Debridement - Muscle / Fascia, 1st Yes Yes 20sq cm -Debridement, Muscle/Fascia, ea addt'l 1 20sq cm or part thereof Pain Scale: 0-10 Numeric Is Patient Pain Free? Yes Yes WC - Nurse 3 - General Ulcer D/C NN Start: 10/27/20 13:39 Freq: Status: Active Protocol: Activity Type Activity Date Activity User E-Sign Co-Sign Detail Recorded Client Recorded Date Recorded By Document 10/27/20 14:26 [id number] 10/27/20 14:26 Document 11/10/20 10:52 [facility] [id number] 11/10/20 10:53 [facility] 10/27/20 11/10/20 14:26 10:52 Wound Care Nurse 3 #17 Left Buttock -Ulcer Cleansing Rinsed/ Irrigated with Saline -Foul Odor after Cleansing No -Primary Dressing Applied Other -Other Dressing moist to dry -Primary Dressing Covered/Secured with Secured with Tape,Other -Other Covering abd, drsg per corina balance truing inspector #16- Francia Anal -Ulcer Cleansing Rinsed/ Rinsed/ Irrigated with Irrigated with Saline Saline -Foul Odor after Cleansing No -Negative Pressure Wound Therapy N/A -Primary Dressing Covered/Secured with Dry Gauze & Other Roll Gauze, Secured with Tape -Other Covering moist to dry per kr balance truing inspector, abd Treatment Response Procedure Tolerated Well Pain Scale: 0-10 Numeric Is Patient Pain Free? Yes Yes WC - Visit Discharge Discharge Condition Stable Stable Ambulatory Status Wheelchair Wheelchair Transportation Private Auto Private Auto Accompanied by caregiver Medication Reconcilliation completed & Yes provided to patient/care provider Clinical Summary of Care Provided Yes Facility Type Home Health Wound debrided: Left ischial/francia anal ulcer Laterality: Left Wound Grade/Stage: Stage IV Type of Debridement: Excisional debridement Anesthesia Used: 5% Lidocaine Gel Depth: Down to and including healthy tissue, in the subcutaneous layer and to muscle Percentage of wound debrided: 100 Instrument Used: 7mm curette Tissue Removed: Subcutaneous tissue and slough, into the muscle Severity: Fat Layer Exposed Amount of bleeding with debridement: Mild Bleeding Controlled with: Pressure and Compression and gauze Patient tolerated procedure: Patient tolerated procedure well Additional Wound Wound debrided: Left buttock - new ulcer Laterality: Left Type of Debridement: Excisional debridement Anesthesia Used: 5% Lidocaine Gel Depth: Down to and including healthy tissue and in the subcutaneous layer Percentage of wound debrided: 100 Instrument Used: 7mm curette Tissue Removed: Subcutaneous tissue and slough, unable to debride the entire ulcer surface Severity: Fat Layer Exposed Amount of bleeding with debridement: Mild Bleeding Controlled with: Pressure Patient tolerated procedure: Patient tolerated procedure well Assessment/Plan Assessment/Plan (1) Stage IV pressure ulcer of left buttock: CODE(S): L89.324 - Pressure ulcer of left buttock, stage 4 (2) Pressure ulcer of left buttock, unstageable: CODE(S): L89.320 - Pressure ulcer of left buttock, unstageable (3) Type 2 diabetes mellitus with diabetic polyneuropathy: CODE(S): E11.42 - Type 2 diabetes mellitus with diabetic polyneuropathy (4) Other chronic osteomyelitis, other site: CODE(S): M86.68 - Other chronic osteomyelitis, other site (5) Quadriplegia: CODE(S): G82.50 - Quadriplegia, unspecified (6) History of methicillin resistant Staphylococcus aureus infection: CODE(S): Z86.14 - Personal history of Methicillin resistant Staphylococcus aureus infection PLAN: Continue Dakin's dressing changes daily. The pressure sore has shown some improvement. The superficial abrasion toward the right side could be irritation from the Dakin's. Instructed the patient to tell his caregiver to wring out the gauze so it is just damp with the Dakin's to minimize Dakin's from irritating the surrounding skin. New ulcer on left buttock, very fibrous. Will start Dakin's daily there. The surrounding francia wound is very excoriated. Instructed adult care provider to do dressing changes then apply a barrier cream/ointment such as Aquaphor or A&D ointment 1-2 times daily to see if this will improve francia wound. Culture obtained from new left buttock ulcer today, 11/10/20. Completed Levaquin for wound culture from 09/22/20 which showed Pseudomonas aeroginosa, Acinetobacter baumannii, and Corynebacterium striatum. CT Pelvis from 10/02/20 did no show evidence of osteomyelitis at this time. At some point, the patient will need an operative debridement of this recurrent pressure sore along with partial ostectomy for osteomyelitis. 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 The surgery will be done under general anesthesia with a surgical observation overnight stay in the hospital. There is concern about the close proximity of this recurrent pressure sore to the anal opening. If there is erosion into the anal mucosa, it won't worsen the pressure sore, but the pressure sore will not heal unless a proctectomy is done. That surgery would need to be done at a tertiary center. Also due to the size of the recurrent pressure sore, the availability of local flaps is limited. Bilateral gracilis muscle flaps can be used but may not be enough. Discussed with the patient that due to the large size of the recurrent pressure sore and lack of availability of local flaps, a total thigh flap can be used for soft tissue to close the defect which would necessitate an amputation. He is aware of that possibility as a last resort and voices understanding. With this recurrent pressure sore, I anticipate increased metabolic demands. Encourage nutritional supplementation with protein to help the healing process. The patient would like to hold off on surgery for as long as possible. He will let us know when he wants to proceed with the surgery. It would be done under sedation anesthesia or general anesthesia with a surgical observation overnight stay in the hospital. The VAC will be placed the next day if it can maintain a seal. Otherwise would continue with the Dakin's dressing changes. Soft tissue and bone would be sent to Pathology for analysis to evaluate for osteomyelitis and to Microbiology for culture. A positive culture will necessitate antibiotic therapy. Followup 3 weeks.
== END 2020-11-19 23:59 ==
LOC: WC 10:00
PROVIDERS: PCP Student in an Organized Health Care Education/Training Program; Visit Provider Surgery
DX: L89.324 Pressure ulcer of left buttock, stage 4 (principal); L89.320 Pressure ulcer of left buttock, unstageable; M86.68 Other chronic osteomyelitis, other site; E11.42 Type 2 diabetes mellitus with diabetic polyneuropathy; G82.50 Quadriplegia, unspecified; E66.3 Overweight; Z68.28 Body mass index [BMI] 28.0-28.9, adult; Z79.84 Long term (current) use of oral hypoglycemic drugs; Z79.82 Long term (current) use of aspirin; Z79.899 Other long term (current) drug therapy; Z86.14 Personal history of Methicillin resistant Staphylococcus aureus infection
CPT/HCPCS: 11042; 11043; 11046; 29445; 87070; 87075; 87077; 87186; 87205

== ENCOUNTER 2020-11-27 16:00 | Observation (INO) | payer MEDICARE, OTHER, SELFPAY ==
--- NOTE | 2020-11-25 09:32 | EKG12_ITS ---
Test Reason : PRE-OP Blood Pressure : / mmHG Vent. Rate : 077 BPM Atrial Rate : 077 BPM P-R Int : 172 ms QRS Dur : 080 ms QT Int : 360 ms P-R-T Axes : 084 069 075 degrees QTc Int : 407 ms Normal sinus rhythm Septal infarct , age undetermined Abnormal ECG Confirmed by BRIELLE PAULA, GILSON ([id number]), field map editor MERRILL MUNIZ ([id number]) on 11/26/2020 2:01:59 PM Referred By: Stone Aguiar Confirmed By:GILSON HANNAH MD
[2020-11-25 11:44] LABS: Hematocrit 41.2 % (40-54); Hemoglobin 12.7 g/dL (13.0-16.5); Mean Corp Hgb Conc 30.8 g/dL (32-36); Mean Corpuscular Hgb 26.7 pg (27.0-32.0); Mean Corpuscular Volume 86.7 fL (80-94); Mean Platelet Vol. 10.6 fl (6.2-12.0); Platelet Count 338 K/mm3 (150-450); RBC Distribution Width CV 16.3 % (11.6-14.6); RBC Distribution Width SD 51.2 fl (35.1-43.9); Red Blood Count 4.75 M/mm3 (4.6-6.2); White Blood Count 10.6 K/mm3 (4.4-11.0)
[2020-11-25 12:04] LABS: Anion Gap 6 (5-15); BUN 27 mg/dL (7-18); Calcium,Total 8.9 mg/dL (8.5-10.1); Chloride 103 mmol/L (98-107); Creatinine, Serum 0.82 mg/dL (0.70-1.30); EST Glomerular Filtration Rate 99 mL/min (>60); Est Glom Filt Rate - Afr Amer 120 mL/min (>60); Glucose 151 mg/dL (74-106); Potassium 3.9 mmol/L (3.5-5.1); Sodium Level 137 mmol/L (136-145)
[2020-11-27] VITALS (13 sets, daily range): BP systolic 68–114; BP diastolic 45–93; PULSE 52–74; RESP 16–18; TEMP 35.8–36.6; O2SAT 93–98; BMI 25.3
--- NOTE | 2020-11-27 10:28 | PCM.HP.BLA ---
History and Physical Date of Admission: 11/27/20 HISTORY OF PRESENT ILLNESS 70 year old man who is known to me from a previous complex left ischial/perineal pressure sore that necessitated multiple muscle flaps for reconstruction who presented with a recurrence of his pressure sore. His nurse fish rod maker noticed the pressure sore developing a couple of months ago. He denies fever. He denies any trauma. His last surgery was on 06/08/16 where he underwent excision recurrent left trochanteric pressure sore, stage IV, with partial ostectomy for osteomyelitis. Reconstruction with left inferior gluteal fasciocutaneous bilobed transposition flap. He also had surgery on 10/02/15 where he underwent excision of recurrent left ischial/perineal pressure sore, stage IV, with partial ostectomy for osteomyelitis and reconstruction with left vastus lateralis muscular rotation flap and split-thickness skin graft from left posterolateral back (30 square cm). He had a CT Pelvis on 10/02/20 which showed staghorn calculus. Multiple large calculi are seen within the urinary bladder. Calculi are also seen within the prostatic urethra. Soft tissue ulceration overlying the posterior aspect of the left inferior pubic ramus. No evidence of osteomyelitis at this time. A wound culture from 09/22/20 showed Pseudomonas aeroginosa, Acinetobacter baumannii, and Corynebacterium striatum. He was placed on Levaquin. PAST MEDICAL HISTORY: Hypertension, incomplete quadriplegia, left ischial/perineal pressure sore, stage IV, left trochanteric pressure sore, stage IV, osteomyelitis, MRSA, obstructive sleep apnea, cataracts and diabetes mellitus. SURGICAL HISTORY: TURP, ureteral stent, diverting colostomy. Cervical spine fusion. 07/09/14 - Excision of left ischial/perineal pressure sore with partial ostectomy for osteomyelitis. 09/24/14 - Excision of left ischial/perineal pressure sore at the partial ostectomy for osteomyelitis. 10/17/14 - Excision of left ischial/perineal pressure sore with partial ostectomy for osteomyelitis and then complex reconstruction with left hamstrings V-Y myocutaneous advancement flap and left gracilis muscular advancement flap with split thickness skin graft from the left flank (40 square cm). 10/23/14 - vascular port placement. He also had a placement of air tubes, tonsillectomy, sinus surgery and septoplasty. 08/12/2015 - Excision recurrent left ischial/perineal pressure sore, stage IV and partial ostectomy for osteomyelitis. 10/02/2015 - Excision of recurrent left ischial/perineal pressure sore stage IV with partial ostectomy for osteomyelitis and reconstruction with left vastus lateralis muscular rotation flap and split thickness skin graft from the left posterior lateral back (30 square cm). 06/08/16 - Excision of recurrent left ischial/trochanteric pressure sore and partial ostectomy for osteomyelitis and reconstruction with myocutaneous flaps 07/29/16 - Excision recurrent left trochanteric pressure sore, stage IV, with partial ostectomy for osteomyelitis. Reconstruction with left inferior gluteal fasciocutaneous bilobed transposition flap. MEDICATIONS: Tylenol, vitamin C, vitamin D, baclofen, aspirin, calcium carbonate, calcium polycarbophil, Colace, cranberry, multivitamin with folic acid, neurontin, glimepiride, lisinopril, loratadine, oxybutynin, KCL, Vitamin B. ALLERGIES: SHELLFISH, URECHOLINE, PENICILLIN, PENTAZOCINE. HE STATES HE IS ALLERGIC TO PENICILLIN, BUT HE HAS TAKEN AUGMENTIN IN THE PAST RECENTLY AND HAS TOLERATED THIS. SOCIAL HISTORY: The patient lives alone. The patient denies smoking. The patient drinks alcohol rarely. The patient does use aspirin. The patient does not use ibuprofen. FAMILY HISTORY: Positive for bladder cancer, lung cancer. REVIEW OF SYSTEMS: GENERAL: He has no weakness or fatigue. Denies fever and weight loss. EYES: Has cataracts, denies eye pain. ENT: Denies nasal congestion and sore throat. CARDIOVASCULAR: Has hypertension, denies chest pain. RESPIRATORY: Denies cough and shortness of breath. GASTROINTESTINAL: Denies nausea, vomiting, diarrhea, constipation, has a diverting colostomy. GENITOURINARY: He has a [place] catheter and ureteral stent, had a TURP. Denies urinary frequency or hematuria. He has chronic history of urinary tract infections and he is being evaluated for this chronic ureteral stent at the [facility] [place] and he states they may place a suprapubic catheter. MUSCULOSKELETAL: He has some neck pain. He has some back pain. Denies arthritis. SKIN: He has a left ischial/perineal pressure sore, stage IV with underlying osteomyelitis. Also has new onset recurrent left trochanteric pressure sore, stage IV and recent debridement and reconstruction with muscle flap and skin grafting on 10/02/2015. He also had recent excision of recurrent left ischial/trochanteric pressure sore with partial ostectomy for osteomyelitis and reconstruction myocutaneous flap on 06/08/2016. NEUROLOGIC: Has significant quadriplegia and a surgical neck fusion. Denies headaches. PSYCHOLOGIC: Denies anxiety or depression. HEMATOLOGIC: Denies easy bleeding. Denies history of blood clot. Denies easy bruising. PHYSICAL EXAMINATION: HEENT: Pupils are equal, round and reactive to light. Extraocular muscles intact. Throat is clear. NECK: Supple, nontender. No cervical adenopathy. LUNGS: Clear to auscultation. HEART: Regular rate and rhythm. ABDOMEN: Soft and nondistended. Has functional colostomy. EXTREMITIES: Lower extremity weakness with incomplete quadriplegia. He has a recurrent left ischial/perineal pressure sore, stage IV. Some granulation tissue is seen. Bone is palpable. No evidence of cellulitis, fluctuance, purulence drainage. No inguinal adenopathy. No axillary adenopathy. Measures 4 x 6 x 3 cm. It is close to the anal opening. NEUROLOGICAL: Cranial nerves II through XII are grossly intact. The patient has incomplete quadriplegia. IMPRESSION: 1. Recurrent left trochanteric pressure sore, stage IV. 2. Chronic osteomyelitis. 3. History of methicillin resistant Staphylococcus aureus. 4. Incomplete quadriplegia. 5. Diabetes mellitus. PLAN Continue Dakin's dressing changes daily. The pressure sore has shown some improvement. The superficial abrasion toward the right side could be irritation from the Dakin's. Instructed the patient to tell his caregiver to wring out the gauze so it is just damp with the Dakin's to minimize Dakin's from irritating the surrounding skin. Continue Levaquin for wound culture from 09/22/20 which showed Pseudomonas aeroginosa, Acinetobacter baumannii, and Corynebacterium striatum. CT Pelvis from 10/02/20 did no show evidence of osteomyelitis at this time. Patient will need an operative debridement of this recurrent pressure sore along with partial ostectomy for osteomyelitis. Soft tissue and bone would be sent to Pathology for analysis to evaluate for osteomyelitis and to Microbiology for culture. A positive culture will necessitate antibiotic therapy. If positive for osteomyelitis, he will need mcc IV antibiotics. The surgery will be done under general anesthesia with a surgical observation overnight stay in the hospital. There is concern about the close proximity of this recurrent pressure sore to the anal opening. If there is erosion into the anal mucosa, it won't worsen the pressure sore, but the pressure sore will not heal unless a proctectomy is done. That surgery would need to be done at a tertiary center. Also due to the size of the recurrent pressure sore, the availability of local flaps is limited. Bilateral gracilis muscle flaps can be used but may not be enough. Discussed with the patient that due to the large size of the recurrent pressure sore and lack of availability of local flaps, a total thigh flap can be used for soft tissue to close the defect which would necessitate an amputation. He is aware of that possibility as a last resort and voices understanding. With this recurrent pressure sore, I anticipate increased metabolic demands. Encourage nutritional supplementation with protein to help the healing process. After surgery the VAC will be placed the next day if it can maintain a seal. Otherwise would continue with the Dakin's dressing changes. Patient was informed of the risks and complications of the procedure including alternatives to surgery. These were discussed with the patient personally. Patient voices understanding and wishes to proceed. We discussed the current risks associated with COVID-19. While it is understood that there is a community spread of COVID-19, the risk of jazmin COVID-19 while at [facility] ([facility]) is very low; however, the risk cannot be completely mitigated because of the community spread of the disease. We discussed in detail the risk of exposure to and/or potential harm posed by the COVID-19 virus with having a surgery/procedure at this time versus the risk of delaying the surgery/procedure. It is not possible to know either the risk of delaying the surgery or procedure or chance of getting an infection with perfect accuracy, but a joint decision was made to proceed at this time with the scheduled surgery/procedure as indicated on the consent form. Patient was notified that we will need to comply with any screening or testing [facility] wishes to perform or that surgery may be delayed for any positive results. Procedure Criteria Procedure Type:?Elective COVID Risk Discussion: The surgeon/proceduralist and patient have discussed in detail the risk of exposure to and/or potential harm posed by the COVID-19 virus with having a surgery/procedure at this time versus the risk of delaying the surgery/procedure.? It is not possible to know either the risk of delaying the surgery or procedure or chance of getting an infection with perfect accuracy, but a joint decision was made between the patient and the surgeon/proceduralist to proceed at this time with the scheduled surgery/procedure as indicated on the consent form.
[2020-11-27] MEDS: Vancomycin IV 1,000 MG/200 ML BAG 200 MG IV (10:53)
[2020-11-27] MEDS: Lactated Ringers 1,000 ML 100 ML IV ×2 (10:54→13:50)
[2020-11-27 11:00] LABS: Bedside Glucose 147 mg/dL (70-110)
[2020-11-27] MEDS: levoFLOXacin IV 500 MG/100 ML BAG 100 MG IV (11:45)
--- NOTE | 2020-11-27 11:45 | PRES_PTH ---
PATIENT: TANIA CONDE LOC: MS3 U#:[id number] AGE/SX: 70/M ROOM: [facility] [place]/27/[address]: Dr. Stone Aguiar MD : 1950 BED: 1 DIS: 11/28/2020 SPEC #: [id number] RECD: 11/27/20 12:58 STATUS: CHARO REValeri #: [id number] JONATHAN: 11/27/20 11:[address]: Stone Aguiar DEPT: SURGICAL PATHOLOGY RECD BY: Morenita Marical ENTERED: 11/27/20 13:12 SP TYPE: PRESS SORE OTHR DR: Dr. Antonio De La Vega MD Tissues: A - Ischium, NOS B - Ischium, NOS Procedures: Decalcification bone/plaque Surgery Specimen Level III HEADER OPERATION: Excision ischial recurrent pressure sore, stage 4 PRE-OP DIAGNOSIS: Recurrent left trochanteric pressure sore stage 4 TISSUE SUBMITTED: A ? Ischial/perineal tissue, B - Ischial/perineal bone MICROSCOPIC DIAGNOSIS A. Ischial/perineal tissue, excision: Pieces of skin with underlying tissue with ulceration, associated acute inflammation and superficial bacterial colonization. B. Ischial/perineal bone: Pieces of bone with acute and chronic osteomyelitis and reactive changes. SJ:rg 12/03/2020 COMMENT Case has been reviewed in consultation with Dr. Nowak who concurs with the above diagnosis. IDC:AM MICROSCOPIC DESCRIPTION Slides are reviewed. GROSS DESCRIPTION A - Received in fixative is one container labeled with the patient's name and designated ischial/perineal tissue. The specimen consists of multiple irregular fragments of light to dark faust skin with adherent yellow to dark reddish-faust fibrofatty tissue. The specimen in aggregate measures 9.5 x 6 x 2 cm. Serial sections do not reveal mass lesions. Batch Trucker sections are submitted in two cassettes. B - Received in fixative is one container labeled with the patient's name and designated ischial/perineal bone. The specimen consists of two irregular fragments of red-faust bone that in aggregate measure 3 x 3 x 0.2 cm. The specimen is totally submitted in one cassette. The fragments are sectioned and totally submitted in two cassettes after decalcification. / LIDIA:sivakumar 11/27/20 TC:2 CPT: 39362 x2, 48271
[2020-11-27] MEDS: Lidocaine 1%/Epi 1:200 (30ml) 30 ML AMPUL (12:10)
--- NOTE | 2020-11-27 13:07 | OP.PCM_ITS ---
Problems Associated Problem List Diagnoses (1) Skin necrosis: (2) Stage IV pressure ulcer of left buttock: (3) Other chronic osteomyelitis, other site: (4) History of methicillin resistant Staphylococcus aureus infection: (5) Quadriplegia: (6) Diabetes mellitus: (7) Right ischial pressure sore, stage 2: Report of Operation Date of Procedure: 11/27/20 Pre-Operative Diagnosis: 1. Recurrent left ischial/perineal pressure sore, stage IV. 2. Chronic osteomyelitis. 3. History of methicillin resistant Staphylococcus aureus. 4. Incomplete quadriplegia. 5. Diabetes mellitus. Post-Operative Diagnosis: 1. Recurrent left ischial/perineal pressure sore, stage IV, with necrotic inferior extension. 2. Chronic osteomyelitis. 3. History of methicillin resistant Staphylococcus aureus. 4. Incomplete quadriplegia. 5. Diabetes mellitus. 6. Right ischial pressure sore, Stage II. Surgery/Procedure Performed:: Excision recurrent left ischial/perineal pressure sore, stage IV, with necrotic inferior extension with partial ostectomy for osteomyelitis. Description of Surgical Findings:: 70 year old man who is known to me from a previous complex left ischial/perineal pressure sore that necessitated multiple muscle flaps for reconstruction who presented with a recurrence of his pressure sore. His nurse truss maker noticed the pressure sore developing a couple of mo nths ago. He denies fever. He denies any trauma. His last surgery was on 06/08/16 where he underwent excision recurrent left trochanteric pressure sore, stage IV, with partial ostectomy for osteomyelitis. Reconstruction with left inferior gluteal fasciocutaneous bilobed transposition flap. He also had surgery on 10/02/15 where he underwent excision of recurrent left ischial/perineal pressure sore, stage IV, with partial ostectomy for osteomyelitis and reconstruction with left vastus lateralis muscular rotation flap and split-thickness skin graft from left posterolateral back (30 square cm) . He had a CT Pelvis on 10/02/20 which showed staghorn calculus. Multiple large calculi are seen within the urinary bladder. Calculi are also seen within the prostatic urethra. Soft tissue ulceration overlying the posterior aspect of the left inferior pubic ramus. No evidence of osteomyelitis at this time. A wound culture from 09/22/20 showed Pseudomonas aeroginosa, Acinetobacter baumannii, and Corynebacterium striatum. He was placed on Levaquin. On the day of surgery, it was noted that the patient had a necrotic inferior extension of his left ischial pressure sore. There was also the beginning of a right ischial pressure sore into the dermis, a Stage II, pressure sore. Will debride that today with a curette and will continue wound care in that area at the Wound Center. Patient was informed of the risks and complications of the procedure including alternatives to surgery. These were discussed with the patient personally. Patient voices understanding and wishes to proceed. Size of left ischial/perineal defect - 7 x 6.5 x 3.5 cm. Size of inferior extension left ischial defect - 8 x 5 x 2 cm. Surgeon: Stone Aguiar limb driver: None Type of Anesthesia: General Specimen's removed: 1. Recurrent left ischial/perineal pressure sore, Stage IV, with necrotic inferior extension soft tissue to Pathology and Microbiology. 2. Recurrent left ischial/perineal pressure sore, Stage IV, with necrotic inferior extension bone to Pathology and Microbiology. Drains: None. Estimated Blood Loss (mL): 150. Description of Procedure: Patient was taken to OR in supine position and was cristal conchis under general anesthesia. He was then placed in the prone position. The buttocks and proximal posterior thigh areas were prepped and draped in the usual fashion. SCD's were placed for DVT prophylaxis. Perioperative antibiotics were given intravenously. Using xylocaine with epinephrine, the left ischial/perineal pressure sore with necrotic inferior extension was infiltrated. After waiting 5 minutes for the anesthetic to take effect, I excised the left ischial/perineal pressure sore through the muscle down to the bone. A partial ostectomy was performed for osteomyelitis with an osteotome and a mallet. A rasp was used to smooth out the bony edges. The medial extension of the excision involved some of the muscular anal sphincter and extends up to the anal opening. It will be difficult to maintain a seal with the VAC in this area. The necrotic inferior extension of the left ischial pressure sore was excised through the subcutaneous tissue and muscle. The bone was palpable but not exposed. There was viable tissue at the base of the wound. Half the soft tissue and half the bone was sent to Pathology for analysis to rule out carcinoma and to evaluate for osteomyelitis. Half the soft tissue and half the bone was sent to Microbiology for culture. A positive culture will necessitate antibiotic therapy. The pressure sore was irrigated with saline. Hemostasis was obtained with electrocautery. Some bone wax was used on the exposed ischial bone. The size of the left ischial/perineal defect is 7 x 6.5 x 3.5 cm. The size of the inferior extension left ischial defect is 8 x 5 x 2 cm. I dressed the pressure sore with Mepitel nonadherent dressing followed by Kerlix gauze and Betadine followed by dry Kerlix gauze and ABD pads compression dressing. There is a skin bridge between the left ischial/perineal pressure sore and its necrotic inferior extension of about 4 cm. Using a curette, I sharply debrided the new onset right ischial pressure sore into the dermis making it a Stage II pressure sore. Good bleeding was seen. Hemostasis obtained with gauze compression. It was dressed with a Betadine gauze dressing. Will start daily Silver dressing changes tomorrow and at the Wound Center. Patient tolerated the procedure well and was sent to PACU in satisfactory condition. Patient will be sent upstairs for continued postop care. The VAC may be attempted tomorrow to the left ischial/perineal pressure sore with necrotic inferior extension. I anticipate some difficulty because of the proximity to the anal opening at which time will proceed with daily Dakin's dressing changes. Grafts/Implants Used: None. Complications None. Admit VTE Documentation VTE Present on Admission: No VTE Mechan Device Prophylaxis: SCD's VTE Pharm Prophylaxis ordered?: Yes Addendum Addendum: Surgery Charges CPT - 23187 ICD-10 - L89.324, I96, M86.68, Z86.14, G82.50, E11.9, L89.312
[2020-11-27 13:30] LABS: Bedside Glucose 121 mg/dL (70-110)
[2020-11-27] MEDS: Baclofen 10 MG Tablet 20 MG PO ×2 (16:08→20:59)
[2020-11-27] MEDS: Ascorbic Acid 500 MG Tablet PO ×2 (16:09→20:59)
[2020-11-27] MEDS: Cholecalciferol (VIT D3) 25 MCG TABLET (1,000 UNITS) PO (16:09)
[2020-11-27] MEDS: Lactated Ringers 1,000 ML 60 ML IV (16:11)
[2020-11-27] MEDS: Gabapentin 100 MG Capsule PO ×2 (16:11→20:59)
[2020-11-27 16:55] LABS: Bedside Glucose 108 mg/dL (70-110)
[2020-11-27] MEDS: Glimepiride 1 MG Tablet PO (17:44)
[2020-11-27 21:16] LABS: Bedside Glucose 185 mg/dL (70-110)
[2020-11-28] MEDS: Acetaminophen 500 MG Tablet 1000 MG PO ×2 (01:49→17:46)
[2020-11-28 02:15] VITALS: BP 114/48; PULSE 65; RESP 18; TEMP 36.4; O2SAT 97
[2020-11-28] MEDS: Lactated Ringers 1,000 ML 100 ML IV (04:22)
[2020-11-28 05:38] VITALS: BP 90/52; PULSE 64; RESP 18; TEMP 37.2; O2SAT 98
[2020-11-28] MEDS: Enoxaparin 40 MG/0.4 ML Syringe SC (05:56)
[2020-11-28] MEDS: Baclofen 10 MG Tablet 20 MG PO ×2 (05:56→15:49)
[2020-11-28] MEDS: Gabapentin 100 MG Capsule PO ×2 (05:56→15:49)
[2020-11-28] MEDS: Loratadine 10 MG Tablet PO (06:02)
[2020-11-28 06:20] LABS: Hematocrit 32.9 % (40-54); Mean Corp Hgb Conc 30.4 g/dL (32-36); Mean Corpuscular Hgb 26.5 pg (27.0-32.0); Mean Platelet Vol. 10.5 fl (6.2-12.0); Platelet Count 250 K/mm3 (150-450); RBC Distribution Width CV 16.2 % (11.6-14.6); Red Blood Count 3.78 M/mm3 (4.6-6.2); White Blood Count 10.2 K/mm3 (4.4-11.0)
[2020-11-28 06:56] LABS: Bedside Glucose 117 mg/dL (70-110)
[2020-11-28 06:57] LABS: Anion Gap 5 (5-15); BUN 27 mg/dL (7-18); BUN/Creat Ratio 30.4 RATIO (10-20); Calcium,Total 8.5 mg/dL (8.5-10.1); Chloride 108 mmol/L (98-107); Creatinine, Serum 0.89 mg/dL (0.70-1.30); EST Glomerular Filtration Rate 90 mL/min (>60); Est Glom Filt Rate - Afr Amer 109 mL/min (>60); Estimated Creatinine Clearance 92.31 ml/min; Glucose 123 mg/dL (74-106); Potassium 4.5 mmol/L (3.5-5.1); Prealbumin 13.9 mg/dL (20.0-40.0); Sodium Level 140 mmol/L (136-145)
[2020-11-28 08:01] VITALS: BP 90/48; PULSE 67; RESP 18; TEMP 36.4; O2SAT 98
[2020-11-28] MEDS: Potassium Chloride Oral Tablet 20 MEQ PO (09:07)
[2020-11-28] MEDS: Ascorbic Acid 500 MG Tablet PO (09:07)
[2020-11-28] MEDS: Glimepiride 2 MG Tablet PO (09:07)
[2020-11-28] MEDS: Cholecalciferol (VIT D3) 25 MCG TABLET (1,000 UNITS) PO (09:08)
[2020-11-28] MEDS: Multivitamins,Ther W-Minerals Tablet 1 TABLET PO (09:13)
[2020-11-28] MEDS: levoFLOXacin IV 500 MG/100 ML BAG 100 MG IV (09:13)
--- NOTE | 2020-11-28 09:40 | CASEMGMT ---
LAKESHA STEPHENS Assessment: Face to Face with pt for initial transition planning/care coordination assessment. LAKESHA STEPHENS introduced self and role at [facility], pt voices understanding and consents to assessment. Pt is A/O x4 and answers all questions appropriately at this time. Pt lying in bed in no distress. Care providers, pharmacy, and demographics verified/updated. Admitting Dx: excision recurring pressure sore PCP: Shahida Specialists: Agustin, ID; Cosme, surg; Abel, ENT; [facility] Preferred Pharmacy: [facility] in [place] Insurance: Agnes FLETCHER Sr Supp Prescription Benefit: yes, [employer] L[place]K: Yee Armendariz, sister; Paula Braun, caregiver Living Arrangements: Pt lives in a single story home that entry is accessible with wheelchair. Pt cg Paula lives with him. She is available in the mornings to get patient up from bed, dressed and breakfast Tue-Tue. Paula also comes back in the evenings to assist with bedtime routine. Pt is dependent on cg for ADL and IADL's. Once pt is up in motorized wheelchair he can wheel himself around the house. Pt has different cg on Tuesday and Tuesday. His current caregivers are finished this weekend and he has a prospective new one he is in contact with. Transportation: Paula transports pt to medical appts with his van. Pt denies concerns with transportation. DME/HHC/SNF: Pt has a motorized wheelchair, roho cushion for wheelchair and a yunior track in his home. Pt did have a hospital bed and alternate pressure mattress but states the bed broke and the pressure cushion stopped working so he has purchased a tempur pedic mattress. Pt has a glucometer and supplies needed to check his blood sugars. He checks them in the morning before breakfast and 2 hours after supper. He has a spreadsheet on his phone with his readings and sends to PCP. Pt also has a suprapubic cath that is changed on Fridays. Pt is current with SHERICE of [facility] who visits Tue/Tue/Fridays. TC to [facility], spoke with Debbie who verifies this. She is also aware of pt being hospitalized and will dc with wound vac today. Pt also has had [facility] and 3-4 other ones that the patient could not think of the name of. Pt has been in SNF in [place] (unknown name), [facility], [facility]. Pt is aware that he will have the wound vac. He has had it in the past. Pt has a port to left chest that he gets flushed as an outpt. Pt also takes Boost and a protein bar daily. He also uses arginaid to aid in wound healing. Pt states no concerns with going home at time of dc. Pt states no further concerns/needs. CM to follow. Advised pt to ask CM if any further question/concerns/needs arise, voices understanding. Pt Goal: Home with caregivers and VNA Plan: Home with resumption of VNA and caregivers
[2020-11-28 10:00] VITALS: BP 101/52; PULSE 66; RESP 16; TEMP 36.6; O2SAT 97
--- NOTE | 2020-11-28 11:00 | CASEMGMT ---
Addendum entered by Marium Elias 11/28/20 16:33: TC to [facility] and spoke with Miri. Vac has been approved. Printed proof of delivery form, pt signed, provided pt with copy and faxed back to [facility] at . Vac is in pt room. Pt denied further questions. Addendum entered by Marium Elias 11/28/20 15:36: LAKESHA CM in to pt room and provided pt a list of [facility] given by [facility]. Addendum entered by Marium Elias 11/28/20 15:25: 1401- Spoke with [facility] rep, vac not yet approved. She will escalate the case. [phone]-Faxed [facility] of [facility], Op Note, Progress note and orders at this time. Original Note: Submitted [facility] information for referral via portal.
--- NOTE | 2020-11-28 14:22 | PN.SURG_ITS ---
Subjective Subjective Postop #1 Patient is resting in bed, states pain is well controlled. Objective Data Objective Data Vital Signs: Vital Signs Temp Pulse Resp BP Pulse Ox 97.9 F 66 16 101/52 L 97 11/28/20 10:00 11/28/20 10:00 11/28/20 10:00 11/28/20 10:00 11/28/20 10:00 Oxygen Delivery Method Room Air Weight: 203 lb 0.732 oz Body Mass Index (BMI) 25.3 Intake & Output: Intake and Output for Last 24 Hours 11/26/20 11/27/20 11/28/20 23:59 23:59 23:59 Intake Total 2827 / 3527 3085.00 / 3085.00 Output Total 550 / 1650 2700 / 2700 Balance 2277 / 1877 385.00 / 385.00 Lab / Micro Data Result Diagrams: 11/28/20 05:47 11/28/20 05:47 Labs: Laboratory Results - last 24 hr 11/27/20 11/27/20 11/28/20 16:44 20:55 05:47 WBC 10.2 RBC 3.78 L Hgb 10.0 L Hct 32.9 L MCV 87.0 MCH 26.5 L MCHC 30.4 L RDW Std Deviation 51.0 H RDW Coeff of Connie 16.2 H Plt Count 250 MPV 10.5 Sodium Potassium Chloride Carbon Dioxide Anion Gap BUN Creatinine Estim Creat Clear Calc Est GFR (MDRD) Af Amer Est GFR (MDRD) Non-Af BUN/Creatinine Ratio Glucose Calcium Prealbumin POC Glucose 108 185 H 11/28/20 11/28/20 05:47 06:51 WBC RBC Hgb Hct MCV MCH MCHC RDW Std Deviation RDW Coeff of Connie Plt Count MPV Sodium 140 Potassium 4.5 Chloride 108 H Carbon Dioxide 27.0 Anion Gap 5 BUN 27 H Creatinine 0.89 Estim Creat Clear Calc 92.31 Est GFR (MDRD) Af Amer 109 Est GFR (MDRD) Non-Af 90 BUN/Creatinine Ratio 30.4 H Glucose 123 H Calcium 8.5 Prealbumin 13.9 L POC Glucose 117 H Micro: Microbiology 11/27/20 12:00 Wound Abcess - Tissue Gram Stain - Final 11/27/20 12:00 Wound Abcess - Tissue Wound Culture - Preliminary Mixed Gram Pos & Gram Neg Org 11/27/20 12:00 Wound Abcess - Bone Gram Stain - Final 11/27/20 12:00 Wound Abcess - Bone Wound Culture - Preliminary Mixed Gram Pos & Gram Neg Org Physical Exam Const oriented x3 and no apparent distress HEENT normocephalic Resp normal respiratory effort Cardio regular rate GI soft to palpation and non-tender Extremity no calf tenderness Skin Wound Narrative: Operative dressings removed. No active bleeding. Left ischial/perineal pressure ulcer is stable, with bone exposure. Dakin's dressing applied to the area. Left ischial inferior extension is stable with no active bleeding. Wound VAC will be placed. Right ischial pressure sore is stage II, place Aquacel-Ag on it. Neuro oriented x3 Psych thought process normal Assessment & Plan Assessment/Plan (1) Stage IV pressure ulcer of left buttock: (2) Skin necrosis: (3) Other chronic osteomyelitis, other site: (4) Right ischial pressure sore, stage 2: (5) Type 2 diabetes mellitus with diabetic polyneuropathy: (6) Quadriplegia: PLAN: Pain is well controlled. Wound VAC will be placed on left ischial pressure ulcer, inferior extension at 150 mmHg. The VAC dressing will be changed 3 times per week per home health. The VAC would not be able to keep a good seal on the Left ischial/perineal portion of the ulcer, therefore will do daily Dakin's 0.25% strength moist. Right ischial, stage II pressure sore will do daily Silver alginate. Prealbumin is 13.9. Encouraged increase protein intake. Preliminary operative cultures positive for mixed gram positive and gram negativ e organisms. He is currently on Levaquin and Vancomycin. Will discharge him on Levaquin. Plan will be to discharge him home after he has his wound VAC approval. He will follow up on Tuesday12/08/20 at the wound center. Charges/Coding Procedures Integumentary [id number]: [id number] Global Visit
[2020-11-28] MEDS: DAKIN'S SOL HALF STRENGTH (=0.25%) 1 APPLIC TOPICAL (14:46)
--- NOTE | 2020-11-28 14:58 | NURSING ---
[facility] notified of wound vac placement. spoke with Nazia, confirmation number [id number]
--- NOTE | 2020-11-28 15:06 | DCINST_ITS ---
Discharge Instructions Diet Discharge Diet: Carb Control Diet (Increased protein intake) Activity Discharge Activity: Return to Normal Activity and May Not Shower May resume sexual activity in: No Restrictions Dressing / Incision Call your doctor if your incision/area has: Continuous Slow Oozing, Sudden Increased Bleeding, Increased Pain/ Swelling, Increased Redness, Foul Smelling Discharge and Swelling at the incision site Call your doctor if you observe: Fever of 101 or Higher, Change in Color, Inability to have a bowel movement, Chest pain, Increased palpitations (irregu lar heartbeat), Calf discomfort and Uncontrolled pain Change Dressing in: 1 day Cleanse incision/area with: Soap & Water Follow Up Care Please Follow Up With: Mary Rico CNP When: Tuesday, December 08, 2020 Test Results: Test results from this visit will be discussed in further detail at your follow-up appointment, if applicable. Discharge Plan Admission Admit Date/Time: 11/27/20 16:00 Attending Provider: Stone Aguiar Primary Care Provider: Deepali Diaz Discharge Orders/Prescriptions Prescriptions: New HySept 0.25 % Solution 1 applic topical DAILY 30 Days Qty: 473 RF: 3 levofloxacin 500 mg tablet 500 mg PO DAILY 21 Days Qty: 21 RF: 1 oxycodone-acetaminophen [Percocet] 5-325 mg tablet 1 tab PO 4X/DAY PRN PRN (Reason: pain (scale score 7-10)) 7 Days Qty: 28 RF: 0 Continued aspirin [Adult Low Dose Aspirin] 81 mg tablet,delayed release (DR/EC) 81 mg PO DAILY RF: 0 calcium polycarbophil [Fiber Laxative (ca polycarbo)] 625 mg tablet 1,250 mg PO BID RF: 0 glimepiride 4 mg tablet 1 mg PO DINNER RF: 0 multivitamin with folic acid 1 TABLET tablet 1 tab PO DAILY RF: 0 cholecalciferol (vitamin D3) 1,000 UNIT tablet 1,000 unit PO DAILY RF: 0 ascorbic acid (vitamin C) 500 MG tablet 500 mg PO BID RF: 0 acetaminophen 500 MG tablet 1,000 mg PO Q8H PRN PRN (Reason: PAIN OR FEVER) Qty: 0 RF: 0 oxybutynin chloride 5 MG tablet 5 mg PO TID PRN PRN (Reason: Bladder Spasm) RF: 0 sodium chloride 1 SPRAY aerosol,spray 2 spray NASAL DAILY PRN PRN (Reason: Nasal Congestion) RF: 0 potassium chloride 20 MEQ tablet 20 meq PO DAILYCM RF: 0 loratadine 10 MG tablet 10 mg PO DAILY PRN (Reason: Allergies) RF: 0 cranberry conc-ascorbic acid 1 EACH capsule 1 cap PO DAILY RF: 0 docusate sodium 100 MG capsule 100 mg PO QHS PRN (Reason: Constipation) RF: 0 baclofen 10 MG tablet 20 mg PO TID RF: 0 gabapentin 100 MG capsule 100 mg PO TID RF: 0 calcium carb-D3-mag [id number] 1 EACH tablet 1 ea PO DAILY RF: 0 glimepiride 1 mg tablet 2 mg PO BREAKFAST RF: 0 vitamin B complex Tablet 2 tab PO DAILY RF: 0 lisinopril 2.5 mg tablet 2.5 mg PO DAILY RF: 0 Referrals / Follow Up: Deepali Diaz MD [Primary Care Provider] - Disposition Disposition (needs filled in before D/C Order can be placed): Home, Self Care
[2020-11-28 15:40] VITALS: BP 116/57; PULSE 73; RESP 16; TEMP 36.6; O2SAT 95
--- NOTE | 2020-11-28 16:03 | CASEMGMT ---
Social Work Note SW updated that pt is inquiring about SNF options in the event pt goes home and ends up needing IV antibiotics. Pt has had IV antibiotics in the past, but were costly to pt. SW in to speak with pt. Patient was provided a list of SNF providers including quality and resource use data and consistent with the patient?s preferred geographic region, medical needs, and insurance network. SW explained that this worker is not able to tell pt's which SNF would accept pt without knowing pt's IV antibiotics. SW informed pt that some IV antibiotics are expensive and some SNF will not take pt's with expensive IV antibiotics. SW informed pt that if he goes home and decides he needs a SNF, his PCP will be able to assist pt with going to a SNF. SW spoke with pt about Medicare rules and guidelines. Pt states understanding, thanked this worker for the information. Pt confirms he will still be going home today. [place] spoke with pt about Mental Health Hx. Pt denied any Mental Health Hx but states after all of this is done maybe. SW spoke with pt about medical situation pt is in and offered support to pt. Pt denied any current suicidal thoughts/plans/ideations. Pt states that he has some friends that are supportive and his aide who is at his house a lot is supportive. Pt denied additional needs or concerns at this time. Honey Granger IRIDOLOGIST, COMMUNICATION SPECIALIST
[2020-11-28 16:41] LABS: Bedside Glucose 163 mg/dL (70-110)
[2020-11-28] MEDS: Glimepiride 1 MG Tablet PO (17:43)
[2020-11-28] MEDS: 0.9% Saline Lock 10 ML Syringe IV (19:17)
== END 2020-11-28 18:59 | disposition home health service (06) ==
LOC: SDC 16:24 → MS3 16:24
PROVIDERS: Anesthesiology; Admitting Provider Surgery; PCP Internal Medicine; Referring Provider Surgery; Visit Provider Surgery
PROC: (CPT 15946; principal; 2020-11-27 11:30)
DX: L89.224 Pressure ulcer of left hip, stage 4 (principal); G82.50 Quadriplegia, unspecified; E11.36 Type 2 diabetes mellitus with diabetic cataract; E11.69 Type 2 diabetes mellitus with other specified complication; I10 Essential (primary) hypertension; G47.33 Obstructive sleep apnea (adult) (pediatric); L89.212 Pressure ulcer of right hip, stage 2; E11.42 Type 2 diabetes mellitus with diabetic polyneuropathy; M86.68 Other chronic osteomyelitis, other site; Z86.14 Personal history of Methicillin resistant Staphylococcus aureus infection; Z79.82 Long term (current) use of aspirin; Z79.899 Other long term (current) drug therapy
CPT/HCPCS: 15946; 36415; 80048; 82962; 83036; 84134; 85027; 87070; 87075; 87077; 87102; 87186; 87205; 87206; 88304; 88305; 88311; 93005; 96361; 96365; 96366; 96367; 96372; 96375; 99218; 99251; J7040; J7120; A4216; G0378; G0379; G0463; J2405

== ENCOUNTER 2020-12-15 11:00 | Outpatient (RCR) | payer MEDICARE, OTHER, SELFPAY ==
[2020-11-20 00:10] VITALS: BP 90/49; PULSE 79; RESP 16; TEMP 35.7
[2020-11-27 15:42] VITALS: BMI 25.3
[2020-12-08 10:21] VITALS: BP 117/76; PULSE 88; RESP 20; TEMP 36.4; BMI 25.3
--- NOTE | 2020-12-08 11:05 | PN.PCM_ITS ---
History of Present Illness Date of Service: 12/08/20 Chief Complaint: Recurrent left ischial/perineal pressure sore, Stage IV, with necrotic inferior extension and right ischial pressure sore, Stage II. History of Wound: Surgery 11/27/20 - Excision recurrent left ischial/perineal pressure sore, stage IV, with necrotic inferior extension with partial ostectomy for osteomyelitis. Wound Care - Dakin's dressing changes for the left ischial ulcer and Silver dressing changes to right ischial ulcer. Operative cultures - Morganella morganii, Enterococcus faecalis, and Corynebacterium striatum in the soft tissue and Morganella morganii, Enterococcus faecalis, and Corynebacterium striatum in the bone. He is being treated with Augmentin and Bactrim. Operative Pathology - acute and chronic osteomyelitis. Prealbumin from 11/28/20 was 13.9. Encourage nutritional supplementation with protein to help the healing process. HgbA1c from 11/25/20 was 7.0. Today he denies fever. His appetite is ok. Objective Data Objective Data Vital Signs: Vital Signs Temp Pulse Resp BP 97.6 F L 88 20 H 117/76 12/08/20 10:21 12/08/20 10:21 12/08/20 10:21 12/08/20 10:21 Body Mass Index (BMI) 25.3 Charges/Coding Procedures Integumentary 111xxx-113xx: 28233 Char subq tissue 20 sq cm/< (79 Modifier ICD-10 - L89.312, L89.324, I96, M86.68, Z86.14, G82.50, E11.42) Debridement Note Debridement Note Post-Debridement Measurements and Additional Note: Post-Debridement Measurements/Treatment - Nurse 1 - General Ulcer Assessment Start: 12/08/20 10:16 Freq: Status: Active Protocol: CHANTELLE.LOWEXLance Activity Type Activity Date Activity User E-Sign Co-Sign Detail Recorded Client Recorded Date Recorded By Document 12/08/20 10:21 SILVINA [id number] 12/08/20 10:36 DL 12/08/20 10:21 - Today's Visit Information Type of service Follow-up Visit (Physician/ELECTROMECHANISMS DESIGN DRAFTER ) Arrival Mode Wheelchair Transfer Assistance Manual Transfer Assist (Other) x3 Patient Identification Verified (Name & Yes ) Patient Requires Transmission-Based No Precautions Height and Weight Body Mass Index (BMI) 25.3 BMI Classification Overweight Vital Signs Temperature (97.8 F-99.1 F) 97.6 F L Temperature Source Temporal Pulse Rate (60-100) 88 Pulse Location Monitor Respiratory Rate (12-18) 20 H Blood Pressure (90/60-120/80) 117/76 Blood Pressure Mean (mm Hg) 89 Source Monitor History Since Last Visit- (Skip if this is Patient's initial visit) Have you changed medications since your No last visit? Any new allergies or adverse reactions No Had a fall/change in ADL's that may No increase risk of falls Has dressing in place as prescribed Yes Has compression in place as prescribed N/A Has offloadiing in place as prescribed Yes Experienced any changes in pain level or No management Pain Scale: 0-10 Numeric Is Patient Pain Free? Yes WC - Nurse 1 - General Ulcer Measurement Start: 12/08/20 10:16 Freq: Status: Active Protocol: Activity Type Activity Date Activity User E-Sign Co-Sign Detail Recorded Client Recorded Date Recorded By Document 12/08/20 10:21 DL [id number] 12/08/20 10:36 DL 12/08/20 10:21 Wound Center Nurse 1 #18 R Ishium -Current Size (cm) - Length 1 -Current Size (cm) - Width 1 -Current Size (cm) - Depth 0.3 -Total Square Cm 1 -Photo Taken No -Exudate Amt Small -Exudate Type Serosanguineous -Wound Margin Distinct, Outline Attached -Granulation Amt Medium (34-66%) -Granulation Quality [place] -Necrosis Amt Large (67-100%) -Necrotic Tissue Type Adherent Slough -Structure Exposed N/A -Texture (Francia-wound Skin Appearance) Scarring -Moisture (Francia-wound Skin Appearance) No Abnormality -Temperature (Francia-wound Skin No Abnormality Appearance) (Pt Warm) -Tenderness on Palpation (Francia-wound No Skin Appearance) -Ulcer Cleansing Wound Cleanser -Foul Odor after Cleansing No -Anesthetic Used 4% Lidocaine Solution #17 L Ischial/perineal with inferior extension -Current Size (cm) - Length 8.5 -Current Size (cm) - Width 3 -Current Size (cm) - Depth 2.8 -Total Square Cm 25.5 -Photo Taken No -Exudate Amt Medium -Exudate Type Serosanguineous -Wound Margin Distinct, Outline Attached -Granulation Amt Large (67-100%) -Necrosis Amt Medium (34-66%) -Necrotic Tissue Type Adherent Slough -Structure Exposed N/A -Texture (Francia-wound Skin Appearance) Scarring -Moisture (Francia-wound Skin Appearance) No Abnormality -Color (Francia-wound Skin Appearance) No Abnormality -Temperature (Francia-wound Skin No Abnormality Appearance) (Pt Warm) -Tenderness on Palpation (Francia-wound No Skin Appearance) -Ulcer Cleansing Wound Cleanser -Foul Odor after Cleansing No -Anesthetic Used 4% Lidocaine Solution #16- left ischial/perineal. -Current Size (cm) - Length 5 -Current Size (cm) - Width 6.5 -Current Size (cm) - Depth 4.2 -Total Square Cm 32.5 -Photo Taken No -Exudate Amt Medium -Exudate Type Serosanguineous -Wound Margin Distinct, Outline Attached -Granulation Amt Medium (34-66%) -Necrosis Amt Medium (34-66%) -Necrotic Tissue Type Adherent Slough -Structure Exposed N/A -Texture (Francia-wound Skin Appearance) Scarring -Moisture (Francia-wound Skin Appearance) No Abnormality -Color (Francia-wound Skin Appearance) No Abnormality -Temperature (Francia-wound Skin No Abnormality Appearance) (Pt Warm) -Tenderness on Palpation (Francia-wound No Skin Appearance) -Ulcer Cleansing Wound Cleanser -Foul Odor after Cleansing No -Anesthetic Used 4% Lidocaine Solution WC - Nurse 2 - General Ulcer CM Notes Start: 12/08/20 10:16 Freq: Status: Active Protocol: Activity Type Activity Date Activity User E-Sign Co-Sign Detail Recorded Client Recorded Date Recorded By Document 12/08/20 10:49 CHRISTIANO [id number] 12/08/20 10:55 CHRISTIANO 12/08/20 10:49 Wound Center Nurse 2 #18 R Ishium -Time 10:50 -Correct Patient Yes -Correct Side, Site, Position Yes -Correct Procedure Yes -Procedure Performed Yes -Type of Procedure Debridement -Clinical Debridement Subcutaneous -Tissue Removed Subcutaneous -Post Debridement (cm) - Length 1.1 -Post Debridement (cm) - Width 1.1 -Post Debridement (cm) - Depth 0.3 -Total Square (Post) (cm) 1.21 -Area of Debridement (cm) - Length 1.1 -Area of Debridement (cm) - Width 1.1 -Total Square (Area) (cm) 1.21 -Tunneling No -Undermining/Tunneling No -Circular Undermining No -Wound/Ulcer Outcome Not Healed -Ulcer Cleansing Rinsed/ Irrigated with Saline -Foul Odor after Cleansing No -Bioengineered Tissue No -Bleeding Controlled with Pressure -Offloading No -Treatment Response Procedure Tolerated Well -Debridement - Subq, 1st 20sq cm Yes #17 L Ishium -Time 10:51 -Correct Patient Yes -Correct Side, Site, Position Yes -Correct Procedure Yes -Procedure Performed Yes -Type of Procedure Debridement -Clinical Debridement Muscle / Fascia -Tissue Removed Muscle,Fascia -Post Debridement (cm) - Length 8.5 -Post Debridement (cm) - Width 3.1 -Post Debridement (cm) - Depth 2.9 -Total Square (Post) (cm) 26.35 -Area of Debridement (cm) - Length 8.5 -Area of Debridement (cm) - Width 3.1 -Total Square (Area) (cm) 26.35 -Tunneling No -Undermining/Tunneling No -Circular Undermining No -Wound/Ulcer Outcome Not Healed -Ulcer Cleansing Rinsed/ Irrigated with Saline -Foul Odor after Cleansing No -Bioengineered Tissue No -Bleeding Controlled with Pressure -Offloading No -Treatment Response Procedure Tolerated Well -Debridement - Muscle / Fascia, 1st Yes 20sq cm -Debridement, Muscle/Fascia, ea addt'l 3 20sq cm or part thereof #16- sacrum -Time 10:53 -Correct Patient Yes -Correct Side, Site, Position Yes -Correct Procedure Yes -Procedure Performed Yes -Type of Procedure Debridement -Clinical Debridement Muscle / Fascia -Tissue Removed Muscle,Fascia -Post Debridement (cm) - Length 5.1 -Post Debridement (cm) - Width 6.6 -Post Debridement (cm) - Depth 4.3 -Total Square (Post) (cm) 33.66 -Area of Debridement (cm) - Length 5.1 -Area of Debridement (cm) - Width 6.6 -Total Square (Area) (cm) 33.66 -Tunneling No -Undermining/Tunneling No -Circular Undermining No -Wound/Ulcer Outcome Healed- Surgical Closure -Foul Odor after Cleansing No -Bioengineered Tissue No -Bleeding Controlled with Pressure -Offloading No -Treatment Response Procedure Tolerated Well -Debridement - Muscle / Fascia, 1st No 20sq cm Pain Scale: 0-10 Numeric Is Patient Pain Free? Yes WC - Nurse 3 - General Ulcer D/C NN Start: 12/08/20 10:16 Freq: Status: Active Protocol: Activity Type Activity Date Activity User E-Sign Co-Sign Detail Recorded Client Recorded Date Recorded By Document 12/08/20 10:55 CHRISTIANO [id number] 12/08/20 11:04 CHRISTIANO 12/08/20 10:55 Wound Care Nurse 3 #18 R Ishium -Ulcer Cleansing Rinsed/ Irrigated with Saline -Foul Odor after Cleansing No -Primary Dressing Applied Aquacel AG 4x4 -Primary Dressing Covered/Secured with Dry Gauze & Roll Gauze, Secured with Tape -Aquacel AG 4x4 1 #17 L Ishium -Ulcer Cleansing Rinsed/ Irrigated with Saline -Foul Odor after Cleansing No -Primary Dressing Covered/Secured with Dry Gauze & Roll Gauze, Secured with Tape #16- sacrum -Ulcer Cleansing Rinsed/ Irrigated with Saline -Foul Odor after Cleansing No -Primary Dressing Covered/Secured with Dry Gauze & Roll Gauze, Secured with Tape Wound debrided: #16 Left ischial/perineal area. Laterality: Left Wound Grade/Stage: IV. Type of Debridement: Excisional debridement Anesthesia Used: 4% Lidocaine Solution Depth: in the subcutaneous layer, to muscle and to bone (bone is exposed but not debrided.) Percentage of wound debrided: 100 Instrument Used: 7mm curette Tissue Removed: subcutaneous tissue and muscle. Severity: Fat Layer Exposed (muscle is exposed. bone is exposed but not debrided.) Amount of bleeding with debridement: Mild Bleeding Controlled with: Pressure and Compression and gauze Patient tolerated procedure: Patient tolerated procedure well Additional Wound Wound debrided: #17 Left ischial/perineal area with inferior extension. Laterality: Left Wound Grade/Stage: IV. Type of Debridement: Excisional debridement Anesthesia Used: 4% Lidocaine Solution Depth: Down to and including healthy tissue, in the subcutaneous layer and to muscle Percentage of wound debrided: 100 Instrument Used: 7mm curette Tissue Removed: subcutaneous tissue and muscle. Severity: Fat Layer Exposed (muscle is exposed.) Amount of bleeding with debridement: Mild Bleeding Controlled with: Pressure and Compression and gauze Patient tolerated procedure: Patient tolerated procedure well Additional Wound Wound debrided: #18 Right ischial area. Laterality: Right Wound Grade/Stage: II. Type of Debridement: Excisional debridement Anesthesia Used: 4% Lidocaine Solution Depth: Down to and including healthy tissue and in the subcutaneous layer Percentage of wound debrided: 100 Instrument Used: 3mm curette and #15 blade Tissue Removed: subcutaneous tissue. Severity: Fat Layer Exposed Amount of bleeding with debridement: Mild Bleeding Controlled with: Pressure Patient tolerated procedure: Patient tolerated procedure well Assessment/Plan Assessment/Plan (1) Stage IV pressure ulcer of left buttock: CODE(S): L89.324 - Pressure ulcer of left buttock, stage 4 (2) Skin necrosis: CODE(S): I96 - Gangrene, not elsewhere classified (3) Other chronic osteomyelitis, other site: CODE(S): M86.68 - Other chronic osteomyelitis, other site (4) Type 2 diabetes mellitus with diabetic polyneuropathy: CODE(S): E11.42 - Type 2 diabetes mellitus with diabetic polyneuropathy (5) Chronic incomplete quadriplegia: CODE(S): G82.50 - Quadriplegia, unspecified (6) Right ischial pressure sore, stage 2: CODE(S): L89.312 - Pressure ulcer of right buttock, stage 2 (7) History of methicillin resistant Staphylococcus aureus infection: CODE(S): Z86.14 - Personal history of Methicillin resistant Staphylococcus aureus infection PLAN: Continue VAC to inferior extension of left ischial/perineal pressure sore. Continue Dakin's dressing changes to the left ischial/perineal pressure sore. Continue Silver dressing changes to right ischial pressure sore. He is currently on Augmentin and Bactrim for his operative cultures. They showed Morganella morganii, Enterococcus faecalis, and Corynebacterium striatum in both the soft tissue and the bone. His Pathology was positive for acute and chronic osteomyelitis. It was recommended to the patient to start IV antibiotics with Meropenem and Zyvox po. He already has a port but would need admission for the administration of one dose of the antibiotic. Also an infusion company would help arrange delivery of the antibiotics to the home. The ulcers do look clean at the present time after his recent surgery on 11/27/20. He wants to continue the po antibiotics at this time. He understands that if the ulcers show worsening or evidence of infection at future visits, then he would need admission to the hospital for IV antibiotics. He voices understanding. Prealbumin from 11/28/20 was 13.9. Encourage nutritional supplementation with protein to help the healing process. HgbA1c from 11/25/20 was 7.0. Followup one week.
[2020-12-15 10:57] VITALS: BP 98/55; PULSE 80; TEMP 36.1; BMI 25.3
--- NOTE | 2020-12-15 14:49 | PN.PCM_ITS ---
History of Present Illness Date of Service: 12/15/20 Chief Complaint: Recurrent left ischial/perineal pressure sore, Stage IV, with necrotic inferior extension and right ischial pressure sore, Stage II. History of Wound: Surgery 11/27/20 - Excision recurrent left ischial/perineal pressure sore, stage IV, with necrotic inferior extension with partial ostectomy for osteomyelitis. Wound Care - Wound VAC at 150 mmHg to left ischial ulcer three times per week, Dakin's 0.25% to the sacral/perineal ulcer daily covered with gauze, and daily Silver dressing changes to right ischial ulcer. The patient would like to have the wound VAC to both the left ischial and the sacral/perianal ulcer. He is not ready to start that until he knows his caregiver is available within 2 hours if he would have issues with his VAC. He is hoping to start it on 12/17/20. Operative cultures - Morganella morganii, Enterococcus faecalis, and Corynebacterium striatum in the soft tissue and Morganella morganii, Enterococcus faecalis, and Corynebacterium striatum in the bone. He is being treated with Augmentin and Bactrim. Operative Pathology - acute and chronic osteomyelitis. Prealbumin from 11/28/20 was 13.9. Encourage nutritional supplementation with protein to help the healing process. HgbA1c from 11/25/20 was 7.0. Today he denies fever. His appetite is ok. Progress of Wound: Stable. He has some excoriation on the lateral right buttocks that currently needs a moisture barrier cream. Objective Data Objective Data Vital Signs: Vital Signs Temp Pulse Resp BP 97.0 F L 80 20 H 98/55 L 12/15/20 10:57 12/15/20 10:57 12/08/20 10:21 12/15/20 10:57 Body Mass Index (BMI) 25.3 Charges/Coding Procedures Integumentary [id number]: [id number] Global Visit Physical Exam Const alert and oriented x3 HEENT normocephalic Eyes PERRL Lymph Lymphatic: no lymphedema noted Resp normal respiratory effort Cardio regular rate GI Palpation: soft Extremity normal capillary refill Skin Wound Narrative: Left ischial ulcer is beefy pink, stable, periwoud is stable. Perineal ulcer is stable, beefy pink, bone is exposed. Right ischial ulcer is pink and stable. He has some excoriation on his right lateral buttocks. It is in a linear line, most likely skin was folded over. Neuro CN's II-XII intact bilaterally Psych Appearance: grossly normal Thought Process: normal thought process Debridement Note Debridement Note Post-Debridement Measurements and Additional Note: Post-Debridement Measurements/Treatment CHANTELLE - Nurse 1 - General Ulcer Assessment Start: 12/08/20 10:16 Freq: Status: Active Protocol: THERESE Activity Type Activity Date Activity User E-Sign Co-Sign Detail Recorded Client Recorded Date Recorded By Document 12/08/20 10:21 DL [id number] 12/08/20 10:36 DL Document 12/15/20 10:57 KR [id number] 12/15/20 11:07 KR 12/08/20 12/15/20 10:21 10:57 CHANTELLE - Today's Visit Information Type of service Follow-up Visit Follow-up Visit (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 (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 ) ) Arrival Mode Wheelchair Wheelchair Arrival Mode (Other) personal aid Transfer Assistance Manual Transfer Assist (Other) x3 Patient Identification Verified (Name & Yes ) Patient Requires Transmission-Based No Precautions Height and Weight Body Mass Index (BMI) 25.3 25.3 BMI Classification Overweight Overweight Vital Signs Temperature (97.8 F-99.1 F) 97.6 F L 97.0 F L Temperature Source Temporal Temporal Pulse Rate (60-100) 88 80 Pulse Location Monitor Monitor Respiratory Rate (12-18) 20 H Blood Pressure (90/60-120/80) 117/76 98/55 L Blood Pressure Mean (mm Hg) 89 69 Source Monitor Monitor Position Sitting Blood Pressure Location Left Arm History Since Last Visit- (Skip if this is Patient's initial visit) Have you changed medications since your No No last visit? Any new allergies or adverse reactions No No Had a fall/change in ADL's that may No No increase risk of falls Signs or symptoms of abuse and/or No neglect since last visit Have you been in the hospital since your No last visit? Has dressing in place as prescribed Yes Yes Has compression in place as prescribed N/A N/A Has offloadiing in place as prescribed Yes N/A Experienced any changes in pain level or No No management Pain Scale: 0-10 Numeric Is Patient Pain Free? Yes Yes CHANTELLE - Nurse 1 - General Ulcer Measurement Start: 12/08/20 10:16 Freq: Status: Active Protocol: Activity Type Activity Date Activity User E-Sign Co-Sign Detail Recorded Client Recorded Date Recorded By Document 12/08/20 10:21 SILVINA [id number] 12/08/20 10:36 DL Document 12/15/20 10:57 KR [id number] 12/15/20 11:07 KR 12/08/20 12/15/20 10:21 10:57 Wound Center Nurse 1 #18 R Ishium -Current Size (cm) - Length 1 1.1 -Current Size (cm) - Width 1 1.2 -Current Size (cm) - Depth 0.3 0.2 -Total Square Cm 1 1.32 -Photo Taken No -Exudate Amt Small Small -Exudate Type Serosanguineous Serosanguineous -Wound Margin Distinct, Distinct, Outline Outline Attached Attached -Granulation Amt Medium (34-66%) Small (1-33%) -Granulation Quality [place] -Necrosis Amt Large (67-100%) Small (1-33%) -Necrotic Tissue Type Adherent Slough Adherent Slough -Structure Exposed N/A -Texture (Francia-wound Skin Appearance) Scarring Assessed, Scarring -Moisture (Francia-wound Skin Appearance) No Abnormality No Abnormality, Assessed -Color (Francia-wound Skin Appearance) No Abnormality, Assessed -Temperature (Francia-wound Skin No Abnormality Appearance) (Pt Warm) -Tenderness on Palpation (Francia-wound No Skin Appearance) -Ulcer Cleansing Wound Cleanser soap and water -Foul Odor after Cleansing No No -Anesthetic Used 4% Lidocaine 4% Lidocaine Solution Solution #17 L Ishium -Current Size (cm) - Length 8.5 7.6 -Current Size (cm) - Width 3 3 -Current Size (cm) - Depth 2.8 2.8 -Total Square Cm 25.5 22.8 -Photo Taken No -Undermining/Tunneling Starts (O'clock 3 ) -Undermining/Tunneling Ends (O'clock) 4 -Maximum Distance (cm) 2.3 -Exudate Amt Medium Large -Exudate Type Serosanguineous Serosanguineous -Wound Margin Distinct, Thickened & Outline Rolled Under Attached -Granulation Amt Large (67-100%) Large (67-100%) -Granulation Quality Red -Necrosis Amt Medium (34-66%) Large (67-100%) -Necrotic Tissue Type Adherent Slough Adherent Slough -Structure Exposed N/A Muscle,Fat Layer Exposed -Texture (Francia-wound Skin Appearance) Scarring Assessed, Scarring -Moisture (Francia-wound Skin Appearance) No Abnormality No Abnormality, Assessed -Color (Francia-wound Skin Appearance) No Abnormality -Temperature (Francia-wound Skin No Abnormality No Abnormality Appearance) (Pt Warm) (Pt Warm) -Tenderness on Palpation (Francia-wound No No Skin Appearance) -Ulcer Cleansing Wound Cleanser soap and water -Foul Odor after Cleansing No No -Anesthetic Used 4% Lidocaine 4% Lidocaine Solution Solution #16- sacrum -Current Size (cm) - Length 5 5 -Current Size (cm) - Width 6.5 5 -Current Size (cm) - Depth 4.2 3.5 -Total Square Cm 32.5 25 -Photo Taken No -Undermining/Tunneling Starts (O'clock 11 ) -Undermining/Tunneling Ends (O'clock) 12 -Maximum Distance (cm) 4.5 -Exudate Amt Medium Large -Exudate Type Serosanguineous Serosanguineous -Wound Margin Distinct, Thickened & Outline Rolled Under Attached -Granulation Amt Medium (34-66%) Large (67-100%) -Granulation Quality Red -Necrosis Amt Medium (34-66%) Medium (34-66%) -Necrotic Tissue Type Adherent Slough Adherent Slough -Structure Exposed N/A Muscle,Fat Layer Exposed -Texture (Francia-wound Skin Appearance) Scarring Assessed, Scarring -Moisture (Francia-wound Skin Appearance) No Abnormality -Color (Francia-wound Skin Appearance) No Abnormality No Abnormality, Assessed -Temperature (Francia-wound Skin No Abnormality No Abnormality Appearance) (Pt Warm) (Pt Warm) -Tenderness on Palpation (Francia-wound No No Skin Appearance) -Ulcer Cleansing Wound Cleanser soap and water -Foul Odor after Cleansing No No -Anesthetic Used 4% Lidocaine 4% Lidocaine Solution Solution WC - Nurse 2 - General Ulcer CM Notes Start: 12/08/20 10:16 Freq: Status: Active Protocol: Activity Type Activity Date Activity User E-Sign Co-Sign Detail Recorded Client Recorded Date Recorded By Document 12/08/20 10:49 CHRISTIANO [id number] 12/08/20 10:55 Document 12/15/20 11:50 [id number] 12/15/20 11:59 12/08/20 12/15/20 10:49 11:50 Wound Center Nurse 2 #18 R Ishium -Time 10:50 11:50 -Correct Patient Yes Yes -Correct Side, Site, Position Yes Yes -Correct Procedure Yes Yes -Procedure Performed Yes Yes -Type of Procedure Debridement Debridement -Clinical Debridement Subcutaneous Subcutaneous -Tissue Removed Subcutaneous Subcutaneous -Post Debridement (cm) - Length 1.1 1.4 -Post Debridement (cm) - Width 1.1 0.8 -Post Debridement (cm) - Depth 0.3 0.2 -Total Square (Post) (cm) 1.21 1.12 -Area of Debridement (cm) - Length 1.1 1.4 -Area of Debridement (cm) - Width 1.1 0.8 -Total Square (Area) (cm) 1.21 1.12 -Tunneling No No -Undermining/Tunneling No No -Circular Undermining No No -Wound/Ulcer Outcome Not Healed Not Healed -Ulcer Cleansing Rinsed/ Rinsed/ Irrigated with Irrigated with Saline Saline -Foul Odor after Cleansing No No -Bioengineered Tissue No No -Bleeding Controlled with Pressure Pressure -Offloading No No -Treatment Response Procedure Procedure Tolerated Well Tolerated Well -Debridement - Subq, 1st 20sq cm Yes Yes #17 L Ishium -Time 10:51 11:52 -Correct Patient Yes Yes -Correct Side, Site, Position Yes Yes -Correct Procedure Yes Yes -Procedure Performed Yes Yes -Type of Procedure Debridement Debridement -Clinical Debridement Muscle / Fascia Muscle / Fascia -Tissue Removed Muscle,Fascia Muscle -Post Debridement (cm) - Length 8.5 7.3 -Post Debridement (cm) - Width 3.1 3.5 -Post Debridement (cm) - Depth 2.9 2.2 -Total Square (Post) (cm) 26.35 25.55 -Area of Debridement (cm) - Length 8.5 7.3 -Area of Debridement (cm) - Width 3.1 3.5 -Total Square (Area) (cm) 26.35 25.55 -Tunneling No No -Undermining/Tunneling No No -Circular Undermining No No -Wound/Ulcer Outcome Not Healed Not Healed -Ulcer Cleansing Rinsed/ Rinsed/ Irrigated with Irrigated with Saline Saline -Foul Odor after Cleansing No No -Bioengineered Tissue No No -Bleeding Controlled with Pressure Pressure -Offloading No No -Treatment Response Procedure Procedure Tolerated Well Tolerated Well -Debridement - Muscle / Fascia, 1st Yes Yes 20sq cm -Debridement, Muscle/Fascia, ea addt'l 3 1 20sq cm or part thereof #16- sacrum -Time 10:53 11:53 -Correct Patient Yes Yes -Correct Side, Site, Position Yes Yes -Correct Procedure Yes Yes -Procedure Performed Yes Yes -Type of Procedure Debridement Debridement -Clinical Debridement Muscle / Fascia Muscle / Fascia -Tissue Removed Muscle,Fascia Muscle,Fascia -Post Debridement (cm) - Length 5.1 6 -Post Debridement (cm) - Width 6.6 6.5 -Post Debridement (cm) - Depth 4.3 4.7 -Total Square (Post) (cm) 33.66 39.0 -Area of Debridement (cm) - Length 5.1 6 -Area of Debridement (cm) - Width 6.6 6.5 -Total Square (Area) (cm) 33.66 39.0 -Tunneling No No -Undermining/Tunneling No No -Circular Undermining No No -Wound/Ulcer Outcome Healed- Not Healed Surgical Closure -Ulcer Cleansing Rinsed/ Irrigated with Saline -Foul Odor after Cleansing No No -Bioengineered Tissue No No -Bleeding Controlled with Pressure Pressure -Offloading No No -Treatment Response Procedure Procedure Tolerated Well Tolerated Well -Debridement - Muscle / Fascia, 1st No No 20sq cm Pain Scale: 0-10 Numeric Is Patient Pain Free? Yes Yes WC - Nurse 3 - General Ulcer D/C NN Start: 12/08/20 10:16 Freq: Status: Active Protocol: Activity Type Activity Date Activity User E-Sign Co-Sign Detail Recorded Client Recorded Date Recorded By Document 12/08/20 10:55 CHRISTIANO [id number] 12/08/20 11:04 CHRISTIANO 12/08/20 10:55 Wound Care Nurse 3 #18 R Ishium -Ulcer Cleansing Rinsed/ Irrigated with Saline -Foul Odor after Cleansing No -Primary Dressing Applied Aquacel AG 4x4 -Primary Dressing Covered/Secured with Dry Gauze & Roll Gauze, Secured with Tape -Aquacel AG 4x4 1 #17 L Ishium -Ulcer Cleansing Rinsed/ Irrigated with Saline -Foul Odor after Cleansing No -Primary Dressing Covered/Secured with Dry Gauze & Roll Gauze, Secured with Tape #16- sacrum -Ulcer Cleansing Rinsed/ Irrigated with Saline -Foul Odor after Cleansing No -Primary Dressing Covered/Secured with Dry Gauze & Roll Gauze, Secured with Tape Wound debrided: Left ischial ulcer Laterality: Left Wound Grade/Stage: Stage IV Type of Debridement: Excisional debridement Anesthesia Used: 5% Lidocaine Gel Depth: Down to and including healthy tissue, in the subcutaneous layer and to muscle Percentage of wound debrided: 100 Instrument Used: 7mm curette Tissue Removed: Subcutaneous tissue and slough Severity: Fat Layer Exposed Bleeding Controlled with: Pressure Patient tolerated procedure: Patient tolerated procedure well Additional Wound Wound debrided: Sacral/perianal ulcer Wound Grade/Stage: Stage IV Type of Debridement: Excisional debridement Anesthesia Used: 5% Lidocaine Gel Depth: Down to and including healthy tissue, in the subcutaneous layer, to muscle and to bone Percentage of wound debrided: 100 Instrument Used: 7mm curette Tissue Removed: Subcutaneous tissue and slough into muscle with bone exposure Severity: Fat Layer Exposed Amount of bleeding with debridement: Mild Bleeding Controlled with: Pressure Additional Wound Wound debrided: Right ischial ulcer Laterality: Right Wound Grade/Stage: Stage II Type of Debridement: Excisional debridement Anesthesia Used: 5% Lidocaine Gel Depth: Down to and including healthy tissue and in the subcutaneous layer Percentage of wound debrided: 100 Instrument Used: 3mm curette Tissue Removed: Subcutaneous tissue and slough Severity: Fat Layer Exposed Amount of bleeding with debridement: Mild Bleeding Controlled with: Pressure Patient tolerated procedure: Patient tolerated procedure well Assessment/Plan Assessment/Plan (1) Stage IV pressure ulcer of left buttock: CODE(S): L89.324 - Pressure ulcer of left buttock, stage 4 (2) Stage 4 pressure ulcer: CODE(S): L89.94 - Pressure ulcer of unspecified site, stage 4 QUALIFIERS: Pressure injury location: other site Qualified Code(s): L89.894 - Pressure ulcer of other site, stage 4 (3) Right ischial pressure sore, stage 2: CODE(S): L89.312 - Pressure ulcer of right buttock, stage 2 (4) Skin necrosis: CODE(S): I96 - Gangrene, not elsewhere classified (5) Other chronic osteomyelitis, other site: CODE(S): M86.68 - Other chronic osteomyelitis, other site (6) Type 2 diabetes mellitus with diabetic polyneuropathy: CODE(S): E11.42 - Type 2 diabetes mellitus with diabetic polyneuropathy (7) Chronic incomplete quadriplegia: CODE(S): G82.50 - Quadriplegia, unspecified (8) History of methicillin resistant Staphylococcus aureus infection: CODE(S): Z86.14 - Personal history of Methicillin resistant Staphylococcus aureus infection PLAN: Wound Care - Wound VAC at 150 mmHg to left ischial ulcer three times per week, Dakin's 0.25% to the sacral/perineal ulcer daily covered with gauze, and daily Silver dressing changes to right ischial ulcer. The patient would like to have the wound VAC to both the left ischial and the sacral/perianal ulcer. He is not ready to start that until he knows his caregiver is available within 2 hours if he would have issues with his VAC. He is hoping to start it on Tuesday12/17/20. He is currently on Augmentin and Bactrim for his operative cultures. They showed Morganella morganii, Enterococcus faecalis, and Corynebacterium striatum in both the soft tissue and the bone. His Pathology was positive for acute and chronic osteomyelitis. It was recommended to the patient to start IV antibiotics with Meropenem and Zyvox po. He already has a port but would need admission for the administration of one dose of the antibiotic. Also an infusion company would help arrange delivery of the antibiotics to the home. The ulcers do look clean at the present time after his recent surgery on 11/27/20. He wants to continue the po antibiotics at this time. He understands that if the ulcers show worsening or evidence of infection at future visits, then he would need admission to the hospital for IV antibiotics. He voices understanding. Prealbumin from 11/28/20 was 13.9. Encourage nutritional supplementation with protein to help the healing process. HgbA1c from 11/25/20 was 7.0. Followup two weeks.
== END 2020-12-20 23:59 ==
LOC: WC 11:00
PROVIDERS: PCP Internal Medicine; Visit Provider Nurse Practitioner Family
DX: L89.324 Pressure ulcer of left buttock, stage 4 (principal); L89.312 Pressure ulcer of right buttock, stage 2; E11.69 Type 2 diabetes mellitus with other specified complication; M86.18 Other acute osteomyelitis, other site; M86.68 Other chronic osteomyelitis, other site; E11.52 Type 2 diabetes mellitus with diabetic peripheral angiopathy with gangrene; I96 Gangrene, not elsewhere classified; E11.42 Type 2 diabetes mellitus with diabetic polyneuropathy; G82.50 Quadriplegia, unspecified; Z79.84 Long term (current) use of oral hypoglycemic drugs; Z79.82 Long term (current) use of aspirin; Z79.899 Other long term (current) drug therapy; Z86.14 Personal history of Methicillin resistant Staphylococcus aureus infection
CPT/HCPCS: 11042; 11043; 11046; 97605

== ENCOUNTER → 2021-01-06 09:35 | Outpatient (CLI) | payer MEDICARE, OTHER, SELFPAY ==
[2020-12-29 10:17] VITALS: BMI 25.3
== END ==
PROVIDERS: PCP Internal Medicine; Referring Provider Surgery; Visit Provider Surgery
DX: Z45.2 Encounter for adjustment and management of vascular access device (principal); G82.20 Paraplegia, unspecified; Z87.2 Personal history of diseases of the skin and subcutaneous tissue
CPT/HCPCS: 96523; A4216

== ENCOUNTER 2021-01-19 09:45 | Outpatient (RCR) | payer MEDICARE, OTHER, SELFPAY ==
[2020-12-21 00:15] VITALS: BP 98/55; PULSE 80; RESP 20; TEMP 36.1
[2020-12-29 10:17] VITALS: BP 108/62; PULSE 75; RESP 18; TEMP 36.3; BMI 25.3
--- NOTE | 2020-12-31 09:18 | PCM.WC.PN ---
History of Present Illness Date of Service: 12/29/20 Chief Complaint: Recurrent left ischial/perineal pressure sore, Stage IV, with necrotic inferior extension and right ischial pressure sore, Stage II. History of Wound: Surgery 11/27/20 - Excision recurrent left ischial/perineal pressure sore, stage IV, with necrotic inferior extension with partial ostectomy for osteomyelitis. Wound Care - Wound VAC on hold. He is having issues with getting help to apply the VAC this week. Dakin's 0.25 to both the left ischial ulcer and the sacral/perineal ulcer daily covered with gauze, and daily Silver dressing changes to right ischial ulcer. The patient would like to have the wound VAC to both the left ischial and the sacral/perianal ulcer. When he gets his help arranged, he may start the wound VAC to both of these ulcer at 150 mmHg three times per week. 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 Operative cultures - Morganella morganii, Enterococcus faecalis, and Corynebacterium striatum in the soft tissue and Morganella morganii, Enterococcus faecalis, and Corynebacterium striatum in the bone. He is being treated with Augmentin and Bactrim. Operative Pathology - acute and chronic osteomyelitis. Prealbumin from 11/28/20 was 13.9. Encourage nutritional supplementation with protein to help the healing process. HgbA1c from 11/25/20 was 7.0. Today he denies fever. His appetite is ok. Progress of Wound: Left ischial with increased undermining towards the sacral ulcer. Right ischial ulcer is stable Objective Data Objective Data Vital Signs: Vital Signs Temp Pulse Resp BP 97.3 F L 75 18 108/62 12/29/20 10:17 12/29/20 10:17 12/29/20 10:17 12/29/20 10:17 Body Mass Index (BMI) 25.3 Charges/Coding Procedures Integumentary [id number]: [id number] Global Visit Physical Exam Const alert and oriented x3 General Appearance: cooperative HEENT normocephalic Eyes PERRL Lymph Lymphatic: no lymphedema noted Resp normal respiratory effort Cardio regular rate GI non-tender Palpation: soft Extremity normal capillary refill Skin Wound Narrative: Right ischial ulcer is stable, stage II. Left ischial ulcer has increased tunneling between 12 and 3:00 towards his sacral ulcer. Increase fat necrosis between 10 and 2:00 on the left ischial ulcer. Difficult to debride. Sacral ulcer is stable. Wound beds are beefy pink Neuro CN's II-XII intact bilaterally Psych Appearance: grossly normal Debridement Note Debridement Note Post-Debridement Measurements and Additional Note: Post-Debridement Measurements/Treatment CHANTELLE - Nurse 1 - General Ulcer Assessment Start: 12/29/20 10:17 Freq: Status: Active Protocol: THERESE Activity Type Activity Date Activity User E-Sign Co-Sign Detail Recorded Client Recorded Date Recorded By Document 12/29/20 10:17 CORINA [id number] 12/29/20 10:22 CORINA 12/29/20 10:17 CHANTELLE Ch Today's Visit Information Type of service Follow-up Visit (Physician/CAPABILITY LEAD ) Arrival Mode Wheelchair Patient Identification Verified (Name & Yes ) Height and Weight Body Mass Index (BMI) 25.3 BMI Classification Overweight Vital Signs Temperature (97.8 F-99.1 F) 97.3 F L Temperature Source Temporal Pulse Rate (60-100) 75 Pulse Location Monitor Respiratory Rate (12-18) 18 Respiratory rate source Ausculation Blood Pressure (90/60-120/80) 108/62 Blood Pressure Mean (mm Hg) 77 Source Monitor Position Sitting Blood Pressure Location Right Arm History Since Last Visit- (Skip if this is Patient's initial visit) Have you changed medications since your No last visit? Any new allergies or adverse reactions No Had a fall/change in ADL's that may No increase risk of falls Signs or symptoms of abuse and/or No neglect since last visit Have you been in the hospital since your No last visit? Has dressing in place as prescribed Yes Has compression in place as prescribed N/A Has offloadiing in place as prescribed N/A Experienced any changes in pain level or No management Left Footwear Regular Shoe Right Footwear Regular Shoe Pain Scale: 0-10 Numeric Is Patient Pain Free? Yes CHANTELLE - Nurse 1 - General Ulcer Measurement Start: 12/29/20 10:17 Freq: Status: Active Protocol: Activity Type Activity Date Activity User E-Sign Co-Sign Detail Recorded Client Recorded Date Recorded By Document 12/29/20 10:17 CORINA [id number] 12/29/20 10:22 CORINA 12/29/20 10:17 Wound Center Nurse 1 #18 R Ishium -Current Size (cm) - Length 1.5 -Current Size (cm) - Width 1.5 -Current Size (cm) - Depth 0.2 -Total Square Cm 2.25 -Exudate Amt Medium -Exudate Type Serosanguineous -Granulation Amt Small (1-33%) -Granulation Quality Red -Texture (Francia-wound Skin Appearance) Assessed, Scarring -Moisture (Francia-wound Skin Appearance) No Abnormality, Assessed -Color (Francia-wound Skin Appearance) No Abnormality, Assessed -Temperature (Francia-wound Skin No Abnormality Appearance) (Pt Warm) -Tenderness on Palpation (Francia-wound No Skin Appearance) -Ulcer Cleansing soap and water -Foul Odor after Cleansing No -Anesthetic Used 4% Lidocaine Solution #17 L Ishium -Current Size (cm) - Length 7 -Current Size (cm) - Width 3 -Current Size (cm) - Depth 2 -Total Square Cm 21 -Undermining/Tunneling Starts (O'clock 9 ) -Undermining/Tunneling Ends (O'clock) 11 -Maximum Distance (cm) 2.2 -Undermining/Tunneling Starts #2 (O' 3 clock) -Undermining/Tunneling Ends #2 (O' 5 clock) -Maximum Distance #2 (cm) 0.8 -Exudate Amt Small -Exudate Type Yellow/Green -Wound Margin Distinct, Outline Attached -Granulation Amt Large (67-100%) -Granulation Quality Red -Necrosis Amt None Present (0 %) -Texture (Francia-wound Skin Appearance) Assessed, Scarring -Moisture (Francia-wound Skin Appearance) No Abnormality, Assessed -Color (Francia-wound Skin Appearance) No Abnormality, Assessed -Temperature (Francia-wound Skin No Abnormality Appearance) (Pt Warm) -Tenderness on Palpation (Francia-wound No Skin Appearance) -Ulcer Cleansing soap and water -Foul Odor after Cleansing No -Anesthetic Used 4% Lidocaine Solution #16- sacrum -Current Size (cm) - Length 5.5 -Current Size (cm) - Width 6 -Current Size (cm) - Depth 3.1 -Total Square Cm 33.0 -Exudate Amt Large -Exudate Type Serosanguineous -Wound Margin Distinct, Outline Attached -Granulation Amt Medium (34-66%) -Granulation Quality Red -Necrosis Amt Medium (34-66%) -Necrotic Tissue Type Adherent Slough -Texture (Francia-wound Skin Appearance) Assessed, Scarring -Moisture (Francia-wound Skin Appearance) No Abnormality, Assessed -Color (Francia-wound Skin Appearance) No Abnormality, Assessed -Temperature (Francia-wound Skin No Abnormality Appearance) (Pt Warm) -Tenderness on Palpation (Francia-wound No Skin Appearance) -Ulcer Cleansing soap and water -Foul Odor after Cleansing No -Anesthetic Used 4% Lidocaine Solution WC - Nurse 2 - General Ulcer CM Notes Start: 12/29/20 10:17 Freq: Status: Active Protocol: Activity Type Activity Date Activity User E-Sign Co-Sign Detail Recorded Client Recorded Date Recorded By Document 12/29/20 10:53 CHRISTIANO [id number] 12/29/20 11:03 CHRISTIANO 12/29/20 10:53 Wound Center Nurse 2 #18 R Ishium -Time 10:56 -Correct Patient Yes -Correct Side, Site, Position Yes -Correct Procedure Yes -Procedure Performed Yes -Type of Procedure Debridement -Clinical Debridement Subcutaneous -Tissue Removed Subcutaneous -Post Debridement (cm) - Length 1.2 -Post Debridement (cm) - Width 1.5 -Post Debridement (cm) - Depth 1 -Total Square (Post) (cm) 1.80 -Area of Debridement (cm) - Length 1.2 -Area of Debridement (cm) - Width 1.5 -Total Square (Area) (cm) 1.80 -Tunneling No -Undermining/Tunneling No -Circular Undermining No -Wound/Ulcer Outcome Not Healed -Ulcer Cleansing Rinsed/ Irrigated with Saline -Foul Odor after Cleansing No -Bioengineered Tissue No -Bleeding Controlled with Pressure -Offloading No -Treatment Response Procedure Tolerated Well -Debridement - Subq, 1st 20sq cm Yes #17 L Ishium -Time 10:54 -Correct Patient Yes -Correct Side, Site, Position Yes -Correct Procedure Yes -Procedure Performed Yes -Type of Procedure Debridement -Clinical Debridement Muscle / Fascia -Tissue Removed Muscle,Fascia -Post Debridement (cm) - Length 8 -Post Debridement (cm) - Width 5 -Post Debridement (cm) - Depth 1.8 -Total Square (Post) (cm) 40 -Area of Debridement (cm) - Length 8 -Area of Debridement (cm) - Width 5 -Total Square (Area) (cm) 40 -Tunneling Yes -Tunneling Position (O'clock) 12 -Tunneling Distance (cm) 4.7 -Undermining/Tunneling No -Circular Undermining No -Wound/Ulcer Outcome Not Healed -Ulcer Cleansing Rinsed/ Irrigated with Saline -Foul Odor after Cleansing No -Bioengineered Tissue No -Bleeding Controlled with Pressure -Offloading No -Treatment Response Procedure Tolerated Well -Debridement - Muscle / Fascia, 1st Yes 20sq cm -Debridement, Muscle/Fascia, ea addt'l 1 20sq cm or part thereof #16- sacrum -Time 10:54 -Correct Patient Yes -Correct Side, Site, Position Yes -Correct Procedure Yes -Procedure Performed Yes -Type of Procedure Debridement -Clinical Debridement Muscle / Fascia -Tissue Removed Muscle,Fascia -Post Debridement (cm) - Length 7.5 -Post Debridement (cm) - Width 7 -Post Debridement (cm) - Depth 3.8 -Total Square (Post) (cm) 52.5 -Area of Debridement (cm) - Length 7.5 -Area of Debridement (cm) - Width 7 -Total Square (Area) (cm) 52.5 -Tunneling No -Undermining/Tunneling Yes -Undermining/Tunneling Starts (O'clock 10 ) -Undermining/Tunneling Ends (O'clock) 1 -Maximum Distance (cm) 4.3 -Circular Undermining No -Wound/Ulcer Outcome Not Healed -Ulcer Cleansing Rinsed/ Irrigated with Saline -Foul Odor after Cleansing No -Bioengineered Tissue No -Bleeding Controlled with Pressure -Offloading No -Treatment Response Procedure Tolerated Well -Debridement - Muscle / Fascia, 1st No 20sq cm -Debridement, Muscle/Fascia, ea addt'l 2 20sq cm or part thereof Pain Scale: 0-10 Numeric Is Patient Pain Free? Yes WC - Nurse 3 - General Ulcer D/C NN Start: 12/29/20 10:17 Freq: Status: Active Protocol: Activity Type Activity Date Activity User E-Sign Co-Sign Detail Recorded Client Recorded Date Recorded By Document 12/29/20 12:08 DL [id number] 12/29/20 12:10 DL 12/29/20 12:08 Wound Care Nurse 3 #18 R Ishium -Ulcer Cleansing Rinsed/ Irrigated with Saline -Foul Odor after Cleansing No -Primary Dressing Applied Aquacel AG 2x2 -Primary Dressing Covered/Secured with Dry Gauze -Aquacel AG 2x2 1 #17 L Ishium -Ulcer Cleansing Rinsed/ Irrigated with Saline -Foul Odor after Cleansing No -Other Dressing moist gauze -Primary Dressing Covered/Secured with Dry Gauze, Secured with Tape #16- sacrum -Ulcer Cleansing Rinsed/ Irrigated with Saline -Foul Odor after Cleansing No -Other Dressing moist gauze -Primary Dressing Covered/Secured with Dry Gauze, Secured with Tape Treatment Response Procedure Tolerated Well Pain Scale: 0-10 Numeric Is Patient Pain Free? Yes WC - Visit Discharge Discharge Condition Stable Ambulatory Status Wheelchair Transportation Private Auto Notes: Pt to resume Dakins at home Facility Type Home Health Orders Sent Yes Wound debrided: Ischial ulcer Laterality: Right Wound Grade/Stage: Stage II Type of Debridement: Excisional debridement Anesthesia Used: 5% Lidocaine Gel Depth: Down to and including healthy tissue and in the subcutaneous layer Percentage of wound debrided: 100 Instrument Used: 3mm curette Tissue Removed: Subcutaneous tissue and slough Severity: Fat Layer Exposed Amount of bleeding with debridement: Mild Patient tolerated procedure: Patient tolerated procedure well Additional Wound Wound debrided: Sacral ulcer Laterality: Not Applicable Wound Grade/Stage: Stage IV Type of Debridement: Excisional debridement Anesthesia Used: 5% Lidocaine Gel Depth: Down to and including healthy tissue, in the subcutaneous layer and to muscle Percentage of wound debrided: 100 Instrument Used: 7mm curette Tissue Removed: Subcutaneous tissue and slough, into the muscle Severity: Fat Layer Exposed Amount of bleeding with debridement: Mild Bleeding Controlled with: Pressure Patient tolerated procedure: Patient tolerated procedure well Additional Wound Wound debrided: Ischial ulcer Laterality: Left Wound Grade/Stage: Stage IV Type of Debridement: Excisional debridement Anesthesia Used: 5% Lidocaine Gel Depth: Down to and including healthy tissue, in the subcutaneous layer and to muscle Percentage of wound debrided: 100 Instrument Used: 7mm curette and - (Scissors and pickups) Tissue Removed: Subcutaneous tissue and slough. Fat necrosis increased on proximal edge Severity: Fat Layer Exposed Amount of bleeding with debridement: Mild Bleeding Controlled with: Pressure Patient tolerated procedure: Patient tolerated procedure well Assessment/Plan Assessment/Plan (1) Pressure ulcer of left hip, stage 4: CODE(S): L89.224 - Pressure ulcer of left hip, stage 4 (2) Stage IV pressure ulcer of left buttock: CODE(S): L89.324 - Pressure ulcer of left buttock, stage 4 (3) Right ischial pressure sore, stage 2: CODE(S): L89.312 - Pressure ulcer of right buttock, stage 2 (4) Quadriplegia: CODE(S): G82.50 - Quadriplegia, unspecified (5) Other chronic osteomyelitis, other site: CODE(S): M86.68 - Other chronic osteomyelitis, other site (6) Mild protein-calorie malnutrition: CODE(S): E44.1 - Mild protein-calorie malnutrition PLAN: Wound Care - Wound VAC on hold. He is having issues with getting help to apply the VAC this week. Dakin's 0.25 to both the left ischial ulcer and the sacral/perineal ulcer daily covered with gauze, the Dakin should help with some of the fat necrosis that was unable to be debrided, on the left ischial ulcer. Daily Silver dressing changes to right ischial ulcer. The patient would like to have the wound VAC to both the left ischial and the sacral/perianal ulcer. When he gets his help arranged, he may start the wound VAC to both of these ulcer at 150 mmHg three times per week. 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 He is currently on Augmentin and Bactrim for his operative cultures. They showed Morganella morganii, Enterococcus faecalis, and Corynebacterium striatum in both the soft tissue and the bone. His Pathology was positive for acute and chronic osteomyelitis. It was recommended to the patient to start IV antibiotics with Meropenem and Zyvox po. He already has a port but would need admission for the administration of one dose of the antibiotic. Also an infusion company would help arrange delivery of the antibiotics to the home. The ulcers do look clean at the present time after his recent surgery on 11/27/20. He wants to continue the po antibiotics at this time. He understands that if the ulcers show worsening or evidence of infection at future visits, then he would need admission to the hospital for IV antibiotics. He voices understanding. Prealbumin from 11/28/20 was 13.9. Encourage nutritional supplementation with protein to help the healing process. HgbA1c from 11/25/20 was 7.0. Encourage a low carb and low sugar diet. Followup two weeks.
[2021-01-19 09:58] VITALS: BP 99/60; PULSE 71; TEMP 36.7; BMI 25.3
--- NOTE | 2021-01-19 12:42 | PCM.WC.PN ---
History of Present Illness Date of Service: 01/19/21 Chief Complaint: Recurrent left ischial/perineal pressure sore, Stage IV, with necrotic inferior extension and right ischial pressure sore, Stage II. History of Wound: Surgery 11/27/20 - Excision recurrent left ischial/perineal pressure sore, stage IV, with necrotic inferior extension with partial ostectomy for osteomyelitis. Wound Care - Wound VAC to 150 mmHg, to be changed 3 times per week to the left ischial ulcer and the sacral/perineal ulcer. Silver dressing changes to right ischial ulcer covered with gauze daily. 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 Operative cultures - Morganella morganii, Enterococcus faecalis, and Corynebacterium striatum in the soft tissue and Morganella morganii, Enterococcus faecalis, and Corynebacterium striatum in the bone. He is being treated with Augmentin and Bactrim. Operative Pathology - acute and chronic osteomyelitis. Prealbumin from 11/28/20 was 13.9. Encourage nutritional supplementation with protein to help the healing process. HgbA1c from 11/25/20 was 7.0. Today he denies fever. His appetite is ok. Progress of Wound: Left ischial and left sacral/perineal ulcers are mildly improved. Right ischial ulcer is improved. Subjective Subjective Patient states he is having issues with getting help on the weekends. He is interested in possibly finding placement for a while to have help maintaining his wound VAC because his home health has told him that his VAC dressings are taking too long. Home health is suggesting he consider placement in and ECF. Objective Data Objective Data Vital Signs: Vital Signs Temp Pulse Resp BP 98.0 F 71 18 99/60 01/19/21 09:58 01/19/21 09:58 12/29/20 10:17 01/19/21 09:58 Body Mass Index (BMI) 25.3 Charges/Coding Procedures Integumentary 111xxx-113xx: 15114 Global Visit Physical Exam Const alert and oriented x3 General Appearance: cooperative HEENT normocephalic Lymph Lymphatic: no lymphedema noted Resp normal respiratory effort Cardio regular rate GI non-tender Palpation: soft Extremity normal capillary refill Skin Wound Narrative: Left ischial ulcer into the muscle with bone exposure and tunneling with some undermining. Tissue is beefy pink. Sacral/perineal ulcer is beefy pink into the muscle. Unable to palpate any bone but there is depth to the ulcer. Right ischial ulcer is pink, improved in depth. Neuro CN's II-XII intact bilaterally Psych Appearance: grossly normal Debridement Note Debridement Note Post-Debridement Measurements and Additional Note: Post-Debridement Measurements/Treatment CHANTELLE - Nurse 1 - General Ulcer Assessment Start: 12/29/20 10:17 Freq: Status: Active Protocol: THERESE Activity Type Activity Date Activity User E-Sign Co-Sign Detail Recorded Client Recorded Date Recorded By Document 12/29/20 10:17 KR [id number] 12/29/20 10:22 KR Document 01/19/21 09:58 DL [id number] 01/19/21 10:02 DL 12/29/20 01/19/21 10:17 09:58 CHANTELLE - Today's Visit Information Type of service Follow-up Visit Follow-up Visit (Physician/PRINCIPAL RESEARCH ECONOMIST (Physician/PRINCIPAL RESEARCH ECONOMIST ) ) Arrival Mode Wheelchair Wheelchair Patient Identification Verified (Name & Yes Yes ) Height and Weight Body Mass Index (BMI) 25.3 25.3 BMI Classification Overweight Overweight Vital Signs Temperature (97.8 F-99.1 F) 97.3 F L 98.0 F Temperature Source Temporal Temporal Pulse Rate (60-100) 75 71 Pulse Location Monitor Monitor Respiratory Rate (12-18) 18 Respiratory rate source Ausculation Blood Pressure (90/60-120/80) 108/62 99/60 Blood Pressure Mean (mm Hg) 77 73 Source Monitor Monitor Position Sitting Semi-Fowlers Blood Pressure Location Right Arm Left Arm History Since Last Visit- (Skip if this is Patient's initial visit) Have you changed medications since your No No last visit? Any new allergies or adverse reactions No No Had a fall/change in ADL's that may No No increase risk of falls Signs or symptoms of abuse and/or No No neglect since last visit Have you been in the hospital since your No No last visit? Has dressing in place as prescribed Yes Yes Has compression in place as prescribed N/A N/A Has offloadiing in place as prescribed N/A N/A Experienced any changes in pain level or No No management Left Footwear Regular Shoe Right Footwear Regular Shoe Pain Scale: 0-10 Numeric Is Patient Pain Free? Yes - Nurse 1 - General Ulcer Measurement Start: 12/29/20 10:17 Freq: Status: Active Protocol: Activity Type Activity Date Activity User E-Sign Co-Sign Detail Recorded Client Recorded Date Recorded By Document 12/29/20 10:17 KR [id number] 12/29/20 10:22 KR Document 01/19/21 09:58 DL [id number] 01/19/21 10:02 DL 12/29/20 01/19/21 10:17 09:58 Wound Center Nurse 1 #18 R Ishium -Current Size (cm) - Length 1.5 1.3 -Current Size (cm) - Width 1.5 1 -Current Size (cm) - Depth 0.2 0.2 -Total Square Cm 2.25 1.3 -Exudate Amt Medium Large -Exudate Type Serosanguineous Yellow/Green -Granulation Amt Small (1-33%) Large (67-100%) -Granulation Quality Red [place] -Texture (Francia-wound Skin Appearance) Assessed, Assessed, Scarring Scarring -Moisture (Francia-wound Skin Appearance) No Abnormality, Assessed, Assessed Maceration -Color (Francia-wound Skin Appearance) No Abnormality, No Abnormality, Assessed Assessed -Temperature (Francia-wound Skin No Abnormality No Abnormality Appearance) (Pt Warm) (Pt Warm) -Tenderness on Palpation (Francia-wound No No Skin Appearance) -Ulcer Cleansing soap and water soap and water -Foul Odor after Cleansing No No -Anesthetic Used 4% Lidocaine 4% Lidocaine Solution Solution #17 L Ishium -Current Size (cm) - Length 7 7.5 -Current Size (cm) - Width 3 3.6 -Current Size (cm) - Depth 2 4.4 -Total Square Cm 21 27.00 -Tunneling Position (O'clock) 12 -Tunneling Distance (cm) 5.5 -Undermining/Tunneling Starts (O'clock 9 ) -Undermining/Tunneling Ends (O'clock) 11 -Maximum Distance (cm) 2.2 -Undermining/Tunneling Starts #2 (O' 3 clock) -Undermining/Tunneling Ends #2 (O' 5 clock) -Maximum Distance #2 (cm) 0.8 -Exudate Amt Small Medium -Exudate Type Yellow/Green Serosanguineous -Wound Margin Distinct, Distinct, Outline Outline Attached Attached -Granulation Amt Large (67-100%) Large (67-100%) -Granulation Quality Red Red -Necrosis Amt None Present (0 None Present (0 %) %) -Texture (Francia-wound Skin Appearance) Assessed, Assessed, Scarring Scarring -Moisture (Francia-wound Skin Appearance) No Abnormality, Assessed, Assessed Maceration -Color (Francia-wound Skin Appearance) No Abnormality, No Abnormality, Assessed Assessed -Temperature (Francia-wound Skin No Abnormality No Abnormality Appearance) (Pt Warm) (Pt Warm) -Tenderness on Palpation (Francia-wound No No Skin Appearance) -Ulcer Cleansing soap and water soap and water -Foul Odor after Cleansing No No -Anesthetic Used 4% Lidocaine 4% Lidocaine Solution Solution #16- sacrum -Current Size (cm) - Length 5.5 7 -Current Size (cm) - Width 6 5.2 -Current Size (cm) - Depth 3.1 3 -Total Square Cm 33.0 36.4 -Undermining/Tunneling Starts (O'clock 11 ) -Undermining/Tunneling Ends (O'clock) 1 -Maximum Distance (cm) 3.8 -Exudate Amt Large Large -Exudate Type Serosanguineous Serosanguineous -Wound Margin Distinct, Distinct, Outline Outline Attached Attached -Granulation Amt Medium (34-66%) Medium (34-66%) -Granulation Quality Red Red -Necrosis Amt Medium (34-66%) Large (67-100%) -Necrotic Tissue Type Adherent Slough -Texture (Francia-wound Skin Appearance) Assessed, Assessed, Scarring Scarring -Moisture (Francia-wound Skin Appearance) No Abnormality, No Abnormality, Assessed Assessed -Color (Francia-wound Skin Appearance) No Abnormality, No Abnormality, Assessed Assessed -Temperature (Francia-wound Skin No Abnormality No Abnormality Appearance) (Pt Warm) (Pt Warm) -Tenderness on Palpation (Francia-wound No No Skin Appearance) -Ulcer Cleansing soap and water soap and water -Foul Odor after Cleansing No No -Anesthetic Used 4% Lidocaine 4% Lidocaine Solution Solution WC - Nurse 2 - General Ulcer CM Notes Start: 12/29/20 10:17 Freq: Status: Active Protocol: Activity Type Activity Date Activity User E-Sign Co-Sign Detail Recorded Client Recorded Date Recorded By Document 12/29/20 10:53 [id number] 12/29/20 11:03 JF Edit Result 12/29/20 10:53 JF (1) [id number] 01/01/21 11:07 PL Document 01/19/21 10:06 JF [id number] 01/19/21 10:21 JF (1) #17 L Ishium - Debridement, Muscle/Fascia, ea addt'l 1 => 2 20sq cm or part thereof 12/29/20 01/19/21 10:53 10:06 Wound Center Nurse 2 #18 R Ishium -Time 10:56 10:14 -Correct Patient Yes Yes -Correct Side, Site, Position Yes Yes -Correct Procedure Yes Yes -Procedure Performed Yes Yes -Type of Procedure Debridement Debridement -Clinical Debridement Subcutaneous Subcutaneous -Tissue Removed Subcutaneous Subcutaneous -Post Debridement (cm) - Length 1.2 1 -Post Debridement (cm) - Width 1.5 0.7 -Post Debridement (cm) - Depth 1 0.1 -Total Square (Post) (cm) 1.80 0.7 -Area of Debridement (cm) - Length 1.2 1 -Area of Debridement (cm) - Width 1.5 0.7 -Total Square (Area) (cm) 1.80 0.7 -Tunneling No No -Undermining/Tunneling No No -Circular Undermining No No -Wound/Ulcer Outcome Not Healed Not Healed -Ulcer Cleansing Rinsed/ Rinsed/ Irrigated with Irrigated with Saline Saline -Foul Odor after Cleansing No No -Bioengineered Tissue No No -Bleeding Controlled with Pressure Pressure -Offloading No No -Treatment Response Procedure Procedure Tolerated Well Tolerated Well -Debridement - Subq, 1st 20sq cm Yes Yes #17 L Ishium -Time 10:54 10:18 -Correct Patient Yes Yes -Correct Side, Site, Position Yes Yes -Correct Procedure Yes Yes -Procedure Performed Yes Yes -Type of Procedure Debridement Debridement -Clinical Debridement Muscle / Fascia Muscle / Fascia -Tissue Removed Muscle,Fascia Muscle -Post Debridement (cm) - Length 8 6.4 -Post Debridement (cm) - Width 5 3 -Post Debridement (cm) - Depth 1.8 1.5 -Total Square (Post) (cm) 40 19.2 -Area of Debridement (cm) - Length 8 6.4 -Area of Debridement (cm) - Width 5 3 -Total Square (Area) (cm) 40 19.2 -Tunneling Yes No -Tunneling Position (O'clock) 12 -Tunneling Distance (cm) 4.7 -Undermining/Tunneling No No -Circular Undermining No No -Wound/Ulcer Outcome Not Healed Not Healed -Ulcer Cleansing Rinsed/ Rinsed/ Irrigated with Irrigated with Saline Saline -Foul Odor after Cleansing No No -Bioengineered Tissue No No -Bleeding Controlled with Pressure Pressure -Offloading No No -Treatment Response Procedure Procedure Tolerated Well Tolerated Well -Debridement - Muscle / Fascia, 1st Yes No 20sq cm -Debridement, Muscle/Fascia, ea addt'l 2 20sq cm or part thereof #16- sacrum -Time 10:54 10:16 -Correct Patient Yes Yes -Correct Side, Site, Position Yes Yes -Correct Procedure Yes Yes -Procedure Performed Yes Yes -Type of Procedure Debridement Debridement -Clinical Debridement Muscle / Fascia Muscle / Fascia -Tissue Removed Muscle,Fascia Muscle -Post Debridement (cm) - Length 7.5 5 -Post Debridement (cm) - Width 7 5.5 -Post Debridement (cm) - Depth 3.8 8 -Total Square (Post) (cm) 52.5 27.5 -Area of Debridement (cm) - Length 7.5 5 -Area of Debridement (cm) - Width 7 5.5 -Total Square (Area) (cm) 52.5 27.5 -Tunneling No No -Undermining/Tunneling Yes No -Undermining/Tunneling Starts (O'clock 10 ) -Undermining/Tunneling Ends (O'clock) 1 -Maximum Distance (cm) 4.3 -Circular Undermining No No -Wound/Ulcer Outcome Not Healed Not Healed -Ulcer Cleansing Rinsed/ Rinsed/ Irrigated with Irrigated with Saline Saline -Foul Odor after Cleansing No No -Bioengineered Tissue No No -Bleeding Controlled with Pressure Pressure -Offloading No No -Treatment Response Procedure Procedure Tolerated Well Tolerated Well -Debridement - Muscle / Fascia, 1st No Yes 20sq cm -Debridement, Muscle/Fascia, ea addt'l 2 2 20sq cm or part thereof Pain Scale: 0-10 Numeric Is Patient Pain Free? Yes Yes WC - Nurse 3 - General Ulcer D/C NN Start: 12/29/20 10:17 Freq: Status: Active Protocol: Activity Type Activity Date Activity User E-Sign Co-Sign Detail Recorded Client Recorded Date Recorded By Document 12/29/20 12:08 DL [id number] 12/29/20 12:10 DL 12/29/20 12:08 Wound Care Nurse 3 #18 R Ishium -Ulcer Cleansing Rinsed/ Irrigated with Saline -Foul Odor after Cleansing No -Primary Dressing Applied Aquacel AG 2x2 -Primary Dressing Covered/Secured with Dry Gauze -Aquacel AG 2x2 1 #17 L Ishium -Ulcer Cleansing Rinsed/ Irrigated with Saline -Foul Odor after Cleansing No -Other Dressing moist gauze -Primary Dressing Covered/Secured with Dry Gauze, Secured with Tape #16- sacrum -Ulcer Cleansing Rinsed/ Irrigated with Saline -Foul Odor after Cleansing No -Other Dressing moist gauze -Primary Dressing Covered/Secured with Dry Gauze, Secured with Tape Treatment Response Procedure Tolerated Well Pain Scale: 0-10 Numeric Is Patient Pain Free? Yes WC - Visit Discharge Discharge Condition Stable Ambulatory Status Wheelchair Transportation Private Auto Notes: Pt to resume [facility] at home Facility Type Home Health Orders Sent Yes Wound debrided: Ischial ulcer Laterality: Left Wound Grade/Stage: Stage IV Type of Debridement: Excisional debridement Anesthesia Used: 5% Lidocaine Gel Depth: Down to and including healthy tissue, in the subcutaneous layer, to muscle and to bone Percentage of wound debrided: 100 Instrument Used: 7mm curette Tissue Removed: Subcutaneous tissue and slough into the muscle with bone exposure. Severity: Fat Layer Exposed Amount of bleeding with debridement: Mild Bleeding Controlled with: Pressure and Compression and gauze Patient tolerated procedure: Patient tolerated procedure well Additional Wound Wound debrided: Sacral/perineal ulcer Laterality: Not Applicable Wound Grade/Stage: Stage IV Type of Debridement: Excisional debridement Anesthesia Used: 4% Lidocaine Solution and 5% Lidocaine Gel Depth: Down to and including healthy tissue, in the subcutaneous layer and to muscle Percentage of wound debrided: 100 Instrument Used: 7mm curette Tissue Removed: Subcutaneous tissue and slough, into the muscle. No bone palpated. Amount of bleeding with debridement: Mild Bleeding Controlled with: Pressure and Compression and gauze Patient tolerated procedure: Patient tolerated procedure well Additional Wound Wound debrided: Ischial ulcer. Laterality: Right Wound Grade/Stage: Stage II Type of Debridement: Excisional debridement Anesthesia Used: 4% Lidocaine Solution and 5% Lidocaine Gel Depth: Down to and including healthy tissue and in the subcutaneous layer Percentage of wound debrided: 100 Instrument Used: 3mm curette Tissue Removed: Subcutaneous tissue and slough Severity: Fat Layer Exposed Amount of bleeding with debridement: Mild Bleeding Controlled with: Pressure Patient tolerated procedure: Patient tolerated procedure well Assessment/Plan Assessment/Plan (1) Stage IV pressure ulcer of left buttock: CODE(S): L89.324 - Pressure ulcer of left buttock, stage 4 (2) Stage 4 pressure ulcer: CODE(S): L89.94 - Pressure ulcer of unspecified site, stage 4 QUALIFIERS: Pressure injury location: other site Qualified Code(s): L89.894 - Pressure ulcer of other site, stage 4 (3) Other chronic osteomyelitis, other site: CODE(S): M86.68 - Other chronic osteomyelitis, other site (4) Right ischial pressure sore, stage 2: CODE(S): L89.312 - Pressure ulcer of right buttock, stage 2 (5) Pressure ulcer of left hip, stage 4: CODE(S): L89.224 - Pressure ulcer of left hip, stage 4 (6) Diabetes mellitus: CODE(S): E11.9 - Type 2 diabetes mellitus without complications (7) History of methicillin resistant Staphylococcus aureus infection: CODE(S): Z86.14 - Personal history of Methicillin resistant Staphylococcus aureus infection (8) Quadriplegia: CODE(S): G82.50 - Quadriplegia, unspecified PLAN: Wound Care - Wound VAC at 150 mmHg to the left ischial ulcer and sacral/perineal ulcers. To be applied 3 times per week. The rectal mucous fistula will be covered with gauze and then drape before placing the VAC. Daily Silver dressing changes to right ischial ulcer. He completed Augmentin and Bactrim for his operative cultures. They showed Morganella morganii, Enterococcus faecalis, and Corynebacterium striatum in both the soft tissue and the bone. His Pathology was positive for acute and chronic osteomyelitis. It was recommended to the patient to start IV antibiotics with Meropenem and Zyvox po. He already has a port but would need admission for the administration of one dose of the antibiotic. Also an infusion company would help arrange delivery of the antibiotics to the home. The ulcers do look clean at the present time after his recent surgery on 11/27/20. He wants to continue the po antibiotics at this time. He understands that if the ulcers show worsening or evidence of infection at future visits, then he would need admission to the hospital for IV antibiotics. He voices understanding. He is having issues with his home health with his wound VAC. They think he should be placed into an ECF. He is willing to consider this. We will look into options. He would like to go to TCU in the hospital, but they are full. Prealbumin from 11/28/20 was 13.9. Encourage nutritional supplementation with protein to help the healing process. HgbA1c from 11/25/20 was 7.0. Encourage a low carb and low sugar diet. Followup two weeks.
== END 2021-01-20 23:59 ==
LOC: WC 09:45
PROVIDERS: PCP Internal Medicine; Visit Provider Nurse Practitioner Family
DX: L89.154 Pressure ulcer of sacral region, stage 4 (principal); L89.224 Pressure ulcer of left hip, stage 4; L89.324 Pressure ulcer of left buttock, stage 4; L89.312 Pressure ulcer of right buttock, stage 2; L89.894 Pressure ulcer of other site, stage 4; G82.50 Quadriplegia, unspecified; E11.69 Type 2 diabetes mellitus with other specified complication; M86.60 Other chronic osteomyelitis, unspecified site; E66.3 Overweight; Z68.25 Body mass index [BMI] 25.0-25.9, adult; Z79.84 Long term (current) use of oral hypoglycemic drugs; Z79.82 Long term (current) use of aspirin; Z79.899 Other long term (current) drug therapy; Z86.14 Personal history of Methicillin resistant Staphylococcus aureus infection
CPT/HCPCS: 11042; 11043; 11046; 97605

== ENCOUNTER 2021-02-09 09:30 | Outpatient (RCR) | payer MEDICARE, OTHER, SELFPAY ==
[2021-01-21 00:21] VITALS: BP 99/60; PULSE 71; RESP 18; TEMP 36.7; BMI 25.3
[2021-02-09 09:39] VITALS: BMI 25.3
--- NOTE | 2021-02-09 12:58 | PN.PCM_ITS ---
History of Present Illness Date of Service: 02/09/21 Chief Complaint: Recurrent left ischial/perineal pressure sore, Stage IV, with necrotic inferior extension and right ischial pressure sore, Stage II. History of Wound: Surgery 11/27/20 - Excision recurrent left ischial/perineal pressure sore, stage IV, with necrotic inferior extension with partial ostectomy for osteomyelitis. Wound Care - Wound VAC to 150 mmHg, to be changed 3 times per week to the left ischial ulcer and the sacral/perineal ulcer. Silver dressing changes to right ischial ulcer covered with gauze daily. 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 Operative cultures - Morganella morganii, Enterococcus faecalis, and Corynebacterium striatum in the soft tissue and Morganella morganii, Enterococcus faecalis, and Corynebacterium striatum in the bone. He is being treated with Augmentin and Bactrim. Operative Pathology - acute and chronic osteomyelitis. Prealbumin from 11/28/20 was 13.9. Encourage nutritional supplementation with protein to help the healing process. HgbA1c from 11/25/20 was 7.0. Today he denies fever. His appetite is ok. Progress of Wound: Left ischial ulcer with increase biofilm. Depth and tunneling increased. Periwound is very excoriated. Subjective Subjective Patient stating he is having increased pain of his left ischial area, especially at night Objective Data Objective Data Vital Signs: Vital Signs Temp Pulse Resp BP 98.0 F 71 18 99/60 01/21/21 00:21 01/21/21 00:21 01/21/21 00:21 01/21/21 00:21 Body Mass Index (BMI) 25.3 Physical Exam Const alert and oriented x3 General Appearance: cooperative HEENT normocephalic Lymph Lymphatic: no lymphedema noted Resp normal respiratory effort Cardio regular rate GI non-tender Palpation: soft Extremity normal capillary refill Skin Wound Narrative: Left ischial ulcer with increase biofilm. Depth and tunneling increased. Sacral ulcer is stable. Right ischial ulcer is improved. Periwound is very excoriated. Neuro CN's II-XII intact bilaterally Psych Appearance: grossly normal Debridement Note Debridement Note Wound debrided: Ischial ulcer Laterality: Left Wound Grade/Stage: Stage IV Type of Debridement: Excisional debridement Anesthesia Used: 4% Lidocaine Solution Depth: Down to and including healthy tissue, in the subcutaneous layer, to muscle and to bone Percentage of wound debrided: 100 Instrument Used: 7mm curette Tissue Removed: Subcutaneous tissue and slough into the muscle, there is bone exposure Severity: Fat Layer Exposed Amount of bleeding with debridement: Mild Bleeding Controlled with: Pressure and Compression and gauze Patient tolerated procedure: Patient tolerated procedure well Post-Debridement Measurements and Additional Note: Post-Debridement Measurements/Treatment - Nurse 1 - General Ulcer Assessment Start: 02/09/21 09:39 Freq: Status: Active Protocol: THERESE Activity Type Activity Date Activity User E-Sign Co-Sign Detail Recorded Client Recorded Date Recorded By Document 02/09/21 09:39 DL [id number] 02/09/21 09:54 DL 02/09/21 09:39 WC - Today's Visit Information Type of service Follow-up Visit (Physician/[employer] DIRECTOR ) Arrival Mode Wheelchair Patient Identification Verified (Name & Yes ) Height and Weight Body Mass Index (BMI) 25.3 BMI Classification Overweight Vital Signs Temperature Source Temporal Pulse Location Monitor Source Monitor Position Semi-Fowlers Blood Pressure Location Left Arm History Since Last Visit- (Skip if this is Patient's initial visit) Have you changed medications since your No last visit? Any new allergies or adverse reactions No Had a fall/change in ADL's that may No increase risk of falls Signs or symptoms of abuse and/or No neglect since last visit Have you been in the hospital since your No last visit? Has dressing in place as prescribed Yes Has compression in place as prescribed N/A Has offloadiing in place as prescribed N/A Experienced any changes in pain level or No management Left Footwear Regular Shoe Right Footwear Regular Shoe Pain Scale: 0-10 Numeric Is Patient Pain Free? Yes - Nurse 1 - General Ulcer Measurement Start: 02/09/21 09:39 Freq: Status: Active Protocol: Activity Type Activity Date Activity User E-Sign Co-Sign Detail Recorded Client Recorded Date Recorded By Document 02/09/21 09:39 DL [id number] 02/09/21 09:54 DL 02/09/21 09:39 Wound Center Nurse 1 #18 R Ishium -Current Size (cm) - Length 0.1 -Current Size (cm) - Width 0.1 -Current Size (cm) - Depth 0.1 -Total Square Cm 0.01 -Exudate Amt Small -Exudate Type Serosanguineous -Wound Margin Distinct, Outline Attached -Granulation Amt Small (1-33%) -Granulation Quality Red -Texture (Francia-wound Skin Appearance) Assessed, Scarring -Moisture (Francia-wound Skin Appearance) No Abnormality, Assessed -Color (Francia-wound Skin Appearance) No Abnormality, Assessed -Ulcer Cleansing soap and water -Foul Odor after Cleansing No -Anesthetic Used 4% Lidocaine Solution #17 L Ishium -Current Size (cm) - Length 7.2 -Current Size (cm) - Width 3.4 -Current Size (cm) - Depth 1.4 -Total Square Cm 24.48 -Undermining/Tunneling Starts (O'clock 9 ) -Undermining/Tunneling Ends (O'clock) 11 -Maximum Distance (cm) 4.7 -Exudate Amt Medium -Exudate Type Serosanguineous -Wound Margin Thickened & Rolled Under -Granulation Amt Medium (34-66%) -Granulation Quality Red -Necrosis Amt Medium (34-66%) -Necrotic Tissue Type Adherent Slough -Texture (Francia-wound Skin Appearance) Assessed, Scarring -Moisture (Francia-wound Skin Appearance) No Abnormality, Assessed -Color (Francia-wound Skin Appearance) No Abnormality, Assessed -Temperature (Francia-wound Skin No Abnormality Appearance) (Pt Warm) -Tenderness on Palpation (Francia-wound No Skin Appearance) -Ulcer Cleansing soap and water -Foul Odor after Cleansing No -Anesthetic Used 4% Lidocaine Solution #16- sacrum -Current Size (cm) - Length 7 -Current Size (cm) - Width 6 -Current Size (cm) - Depth 4 -Total Square Cm 42 -Undermining/Tunneling Starts (O'clock 6 ) -Undermining/Tunneling Ends (O'clock) 1 -Maximum Distance (cm) 6.2 -Exudate Amt Medium -Exudate Type Serosanguineous -Wound Margin Thickened & Rolled Under -Granulation Amt Medium (34-66%) -Granulation Quality Red -Necrosis Amt Medium (34-66%) -Necrotic Tissue Type Adherent Slough -Texture (Francia-wound Skin Appearance) Assessed, Scarring -Moisture (Francia-wound Skin Appearance) No Abnormality, Assessed -Color (Francia-wound Skin Appearance) No Abnormality, Assessed -Temperature (Francia-wound Skin No Abnormality Appearance) (Pt Warm) -Tenderness on Palpation (Francia-wound No Skin Appearance) -Ulcer Cleansing soap and water -Foul Odor after Cleansing No -Anesthetic Used 4% Lidocaine Solution WC - Nurse 2 - General Ulcer CM Notes Start: 02/09/21 09:39 Freq: Status: Active Protocol: Activity Type Activity Date Activity User E-Sign Co-Sign Detail Recorded Client Recorded Date Recorded By Document 02/09/21 10:12 CHRISTIANO [id number] 02/09/21 10:25 CHRISTIANO 02/09/21 10:12 Wound Center Nurse 2 #18 R Ishium -Time 10:12 -Correct Patient Yes -Correct Side, Site, Position Yes -Correct Procedure Yes -Procedure Performed Yes -Type of Procedure Debridement -Clinical Debridement Subcutaneous -Tissue Removed Subcutaneous -Post Debridement (cm) - Length 1 -Post Debridement (cm) - Width 0.8 -Post Debridement (cm) - Depth 0.1 -Total Square (Post) (cm) 0.8 -Area of Debridement (cm) - Length 1 -Area of Debridement (cm) - Width 0.8 -Total Square (Area) (cm) 0.8 -Tunneling No -Undermining/Tunneling No -Circular Undermining No -Wound/Ulcer Outcome Not Healed -Ulcer Cleansing Rinsed/ Irrigated with Saline -Foul Odor after Cleansing No -Bioengineered Tissue No -Bleeding Controlled with Pressure -Offloading No -Treatment Response Procedure Tolerated Well -Debridement - Subq, 1st 20sq cm Yes #17 L Ishium -Time 10:13 -Correct Patient Yes -Correct Side, Site, Position Yes -Correct Procedure Yes -Procedure Performed Yes -Type of Procedure Debridement -Clinical Debridement Muscle / Fascia -Tissue Removed Muscle -Post Debridement (cm) - Length 7.4 -Post Debridement (cm) - Width 4 -Post Debridement (cm) - Depth 2 -Total Square (Post) (cm) 29.6 -Area of Debridement (cm) - Length 7.4 -Area of Debridement (cm) - Width 4 -Total Square (Area) (cm) 29.6 -Tunneling Yes -Tunneling Position (O'clock) 11 -Tunneling Distance (cm) 10 -Undermining/Tunneling No -Circular Undermining No -Wound/Ulcer Outcome Not Healed -Ulcer Cleansing Rinsed/ Irrigated with Saline -Foul Odor after Cleansing No -Bioengineered Tissue No -Bleeding Controlled with Pressure -Offloading No -Treatment Response Procedure Tolerated Well -Debridement - Muscle / Fascia, 1st No 20sq cm #16- sacrum -Time 10:14 -Correct Patient Yes -Correct Side, Site, Position Yes -Correct Procedure Yes -Procedure Performed Yes -Type of Procedure Debridement -Clinical Debridement Muscle / Fascia -Tissue Removed Muscle -Post Debridement (cm) - Length 5 -Post Debridement (cm) - Width 5.5 -Post Debridement (cm) - Depth 3 -Total Square (Post) (cm) 27.5 -Area of Debridement (cm) - Length 5 -Area of Debridement (cm) - Width 5.5 -Total Square (Area) (cm) 27.5 -Tunneling Yes -Tunneling Position (O'clock) 11 -Tunneling Distance (cm) 6.2 -Undermining/Tunneling No -Circular Undermining No -Wound/Ulcer Outcome Not Healed -Ulcer Cleansing Rinsed/ Irrigated with Saline -Foul Odor after Cleansing No -Bioengineered Tissue No -Bleeding Controlled with Pressure -Offloading No -Treatment Response Procedure Tolerated Well -Debridement - Muscle / Fascia, 1st Yes 20sq cm -Debridement, Muscle/Fascia, ea addt'l 2 20sq cm or part thereof Pain Scale: 0-10 Numeric Is Patient Pain Free? Yes WC - Nurse 3 - General Ulcer D/C NN Start: 02/09/21 09:39 Freq: Status: Active Protocol: Activity Type Activity Date Activity User E-Sign Co-Sign Detail Recorded Client Recorded Date Recorded By Document 02/09/21 10:31 SILVINA [id number] 02/09/21 10:34 DL 02/09/21 10:31 Wound Care Nurse 3 #18 R Ishium -Ulcer Cleansing Wound Cleanser -Foul Odor after Cleansing No -Other Dressing most to dry drsy -Primary Dressing Covered/Secured with Dry Gauze, Secured with Tape #17 L Ishium -Ulcer Cleansing Wound Cleanser -Foul Odor after Cleansing No -Other Dressing moist drsg -Primary Dressing Covered/Secured with Dry Gauze & Roll Gauze, Secured with Tape #16- sacrum -Ulcer Cleansing Wound Cleanser -Foul Odor after Cleansing No -Other Dressing moist -Primary Dressing Covered/Secured with Dry Gauze, Secured with Tape Treatment Response Procedure Tolerated Well Pain Scale: 0-10 Numeric Is Patient Pain Free? Yes WC - Visit Discharge Discharge Condition Stable Ambulatory Status Wheelchair Transportation Private Auto Notes: pt to resume Dakins at home Facility Type Home Health Orders Sent Yes Additional Wound Wound debrided: Sacral ulcer Wound Grade/Stage: Stage IV Type of Debridement: Excisional debridement Anesthesia Used: 4% Lidocaine Solution Depth: Down to and including healthy tissue, in the subcutaneous layer and to muscle Percentage of wound debrided: 100 Instrument Used: 7mm curette Tissue Removed: Subcutaneous tissue and slough into the muscle. Severity: Fat Layer Exposed Amount of bleeding with debridement: Mild Bleeding Controlled with: Pressure Patient tolerated procedure: Patient tolerated procedure well Additional Wound Wound debrided: Ischial ulcer Laterality: Right Wound Grade/Stage: Stage II Type of Debridement: Excisional debridement Anesthesia Used: 4% Lidocaine Solution Depth: Down to and including healthy tissue and in the subcutaneous layer Percentage of wound debrided: 100 Instrument Used: 3mm curette Tissue Removed: Subcutaneous tissue and slough Severity: Fat Layer Exposed Amount of bleeding with debridement: Mild Bleeding Controlled with: Pressure Patient tolerated procedure: Patient tolerated procedure well Assessment/Plan Assessment/Plan (1) Stage IV pressure ulcer of left buttock: CODE(S): L89.324 - Pressure ulcer of left buttock, stage 4 (2) Stage 4 pressure ulcer: CODE(S): L89.94 - Pressure ulcer of unspecified site, stage 4 QUALIFIERS: Pressure injury location: other site Qualified Code(s): L89.894 - Pressure ulcer of other site, stage 4 (3) Other chronic osteomyelitis, other site: CODE(S): M86.68 - Other chronic osteomyelitis, other site (4) Right ischial pressure sore, stage 2: CODE(S): L89.312 - Pressure ulcer of right buttock, stage 2 (5) Pressure ulcer of left hip, stage 4: CODE(S): L89.224 - Pressure ulcer of left hip, stage 4 (6) Diabetes mellitus: CODE(S): E11.9 - Type 2 diabetes mellitus without complications (7) History of methicillin resistant Staphylococcus aureus infection: CODE(S): Z86.14 - Personal history of Methicillin resistant Staphylococcus aureus infection (8) Malnutrition: CODE(S): E46 - Unspecified protein-calorie malnutrition (9) Quadriplegia: CODE(S): G82.50 - Quadriplegia, unspecified (10) Other acute postprocedural pain: CODE(S): G89.18 - Other acute postprocedural pain PLAN: Wound Care - Wound VAC holiday for one week due to excoriated periwound. (Wound VAC at 150 mmHg to the left ischial ulcer and sacral/perineal ulcers. To be applied 3 times per week. The rectal mucous fistula will be covered with gauze and then drape before placing the VAC- May restart wound VAC in one week). This week we will do daily Dakin's 0.25 moistened gauzed covered by ABD or super absorbant pads. Daily Silver dressing changes to right ischial ulcer. A thick layer of skin barrier is to be placed 1-2 times per day, preferably something without zinc such as aquaphor or A&D ointment, to see if this helps improve the francia wound area. Wound culture of left ischial ulcer obtained today due to the increased tunneling and the color and odor of the drainage. It may necessitate the need for treatment with antibiotics. He completed Augmentin and Bactrim for his operative cultures. They showed Morganella morganii, Enterococcus faecalis, and Corynebacterium striatum in both the soft tissue and the bone. His Pathology was positive for acute and chronic osteomyelitis. It was recommended to the patient to start IV antibiotics with Meropenem and Zyvox po after his surgery. He already has a port but would need admission for the administration of one dose of the antibiotic. Also an infusion company would help arrange delivery of the antibiotics to the home. The ulcers were looking clean at that time after his surgery on 11/27/20. He wanted to continue the po antibiotics at this time. He understands that if the ulcers show worsening or evidence of infection at future visits, then he would need admission to the hospital for IV antibiotics. He voices understanding. Prealbumin from 11/28/20 was 13.9. Encourage nutritional supplementation with protein to help the healing process. HgbA1c from 11/25/20 was 7.0. Encourage a low carb and low sugar diet. He has been experiencing increased pain from his left ischial ulcer, especially at night, will renew Percocet (21 tabs). PDMP reviewed. Followup two weeks.
== END 2021-02-19 23:59 ==
LOC: WC 09:30
PROVIDERS: PCP Internal Medicine; Visit Provider Nurse Practitioner Family
DX: L89.312 Pressure ulcer of right buttock, stage 2 (principal); L89.324 Pressure ulcer of left buttock, stage 4; L89.894 Pressure ulcer of other site, stage 4; L89.154 Pressure ulcer of sacral region, stage 4; L89.224 Pressure ulcer of left hip, stage 4; E11.69 Type 2 diabetes mellitus with other specified complication; M86.68 Other chronic osteomyelitis, other site; G82.50 Quadriplegia, unspecified; E66.3 Overweight; Z68.25 Body mass index [BMI] 25.0-25.9, adult; Z79.84 Long term (current) use of oral hypoglycemic drugs; Z79.82 Long term (current) use of aspirin; Z86.14 Personal history of Methicillin resistant Staphylococcus aureus infection
CPT/HCPCS: 11042; 11043; 11046; 87070; 87075; 87077; 87186; 87205

== ENCOUNTER → 2021-02-23 11:17 | Outpatient (CLI) | payer MEDICARE, OTHER, SELFPAY | PROVIDERS: PCP Internal Medicine; Referring Provider Surgery; Visit Provider Surgery | DX: Z45.2 Encounter for adjustment and management of vascular access device (principal); L89.324 Pressure ulcer of left buttock, stage 4; L89.894 Pressure ulcer of other site, stage 4; L89.224 Pressure ulcer of left hip, stage 4; L89.312 Pressure ulcer of right buttock, stage 2; E11.69 Type 2 diabetes mellitus with other specified complication; M86.60 Other chronic osteomyelitis, unspecified site; G82.50 Quadriplegia, unspecified; E11.42 Type 2 diabetes mellitus with diabetic polyneuropathy; I10 Essential (primary) hypertension; G47.33 Obstructive sleep apnea (adult) (pediatric); E66.9 Obesity, unspecified; Z68.25 Body mass index [BMI] 25.0-25.9, adult; Z79.82 Long term (current) use of aspirin; Z79.84 Long term (current) use of oral hypoglycemic drugs; Z79.899 Other long term (current) drug therapy | CPT/HCPCS: 11043; 11046; 96523; A4216 ==

== ENCOUNTER 2021-03-09 09:45 | Outpatient (RCR) | payer MEDICARE, OTHER, SELFPAY ==
[2021-02-20 00:16] VITALS: BP 99/60; PULSE 71; RESP 18; TEMP 36.7; BMI 25.3
[2021-02-23 09:31] VITALS: BP 76/46; PULSE 83; TEMP 36.2; BMI 25.3
--- NOTE | 2021-02-23 12:38 | CON.PCM.ID_ITS ---
Assessment & Plan Assessment/Plan (1) Quadriplegia: (2) Other chronic osteomyelitis, other site: PLAN: Does not have wound vac in place over the weekends due to lack of availability for caregivers. Wound cx with enterbacter, proteus, VRE, corynebacter, and anaerobes. Ulcers improved this week. Would plan on 6 weeks augmentin, but if he worsens, would re-culture and re-eval for iv abx and debridement. Thank you for this referral, will follow as needed, d/w primary team. HPI Consult Data Date of Consult: 02/23/21 HPI Narrative HPI Narrative: TANIA CONDE, is a 71 M who was referred by wound center due to worsening sacral/ischial ulcers. Taken to OR 11/[address] Aguiar for debridement, sent home with levaquin. Now with worsening tunneling wounds, odor/drainage. Wound cx sent with polymicrobial growth, started on augmentin last week. Tolerating augmentin with no issues, no fever, no n/v/d. Has had covid shots. Full ROS performed and neg except as noted above. [facility] Medical History Allergic rhinitis Anemia Chronic cough Chronic incomplete quadriplegia Delayed wound healing Diabetes mellitus Diabetic ulcer of right foot 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 Difficulty swallowing History of methicillin resistant Staphylococcus aureus infection History of spinal cord injury Hypertension Injury of head and neck Non-smoker Obesity [place] treated with BiPAP Pressure ulcer Pressure ulcer of left hip, stage 4 Skin necrosis Sleep apnea Suspected deep tissue injury of unknown depth of heel Type 2 diabetes mellitus with diabetic polyneuropathy Ulcer of right lower extremity with fat layer exposed Wears glasses Home Medications multivitamin with folic acid 1 tab PO DAILY 02/04/14 [History Last Taken 07/04/17 09:00] cholecalciferol (vitamin D3) 1,000 unit PO DAILY 07/02/14 [History Last Taken 07/04/17 09:00] ascorbic acid (vitamin C) 500 mg PO BID 07/09/14 [History Last Taken 07/04/17 09:00] acetaminophen 1,000 mg PO Q8H PRN PRN #0 tab 12/23/14 [Rx Last Taken Unknown] oxybutynin chloride 5 mg PO TID PRN PRN 03/18/16 [History Last Taken 07/03/17] sodium chloride 2 spray NASAL DAILY PRN PRN 06/04/16 [History Last Taken Unknown] potassium chloride 20 meq PO DAILYCM 07/27/16 [History Last Taken 07/04/17 09:00] cranberry conc-ascorbic acid 1 cap PO DAILY 11/22/16 [History Last Taken 07/04/17 09:00] loratadine 10 mg PO DAILY PRN 11/22/16 [History Last Taken Unknown] baclofen 20 mg PO TID 07/04/17 [History Last Taken 10/10/18 07:30] docusate sodium 100 mg PO QHS PRN 07/04/17 [History Last Taken 07/03/17] gabapentin 100 mg PO TID 07/04/17 [History Last Taken 10/10/18 07:30] aspirin 81 mg tablet,delayed release 81 mg PO DAILY 09/28/18 [History Last Taken Unknown] calcium polycarbophil 625 mg tablet 1,250 mg PO BID 09/28/18 [History Last Taken Unknown] glimepiride 4 mg tablet 1 mg PO DINNER 09/28/18 [History Last Taken Unknown] calcium carb-D3-mag [id number] 1 ea PO DAILY 10/03/18 [History Last Taken Unknown] glimepiride 2 mg PO BREAKFAST 11/20/20 [History Last Taken Unknown] lisinopril 2.5 mg PO DAILY 11/20/20 [History Last Taken Unknown] vitamin B complex 2 tab PO DAILY 11/20/20 [History Last Taken Unknown] oxycodone-acetaminophen [Percocet] 1 tab PO 4X/DAY PRN PRN 7 Days #28 tab 11/28/20 [Rx Last Taken Unknown] sodium hypochlorite [HySept] 1 applic TOPICAL DAILY 30 Days #473 ml 11/28/20 [Rx Last Taken Unknown] sulfamethoxazole 800 mg-trimethoprim 160 mg tablet 1 tab PO Q12H 21 Days #42 tab 12/01/20 [Rx Last Taken Unknown] amoxicillin 875 mg-potassium clavulanate 125 mg tablet 1 tab PO Q12H 21 Days #42 tab 12/02/20 [Rx Last Taken Unknown] amoxicillin-pot clavulanate [Augmentin] 1 tab PO BID 14 Days #28 tab 02/13/21 [Rx Last Taken Unknown] oxycodone-acetaminophen [Percocet] 1 tab PO TID PRN 7 Days #21 tab 02/13/21 [Rx Last Taken Unknown] Allergy/AdvReac Type Severity Reaction Status Date / Time Penicillins Allergy Hives- as Verified 02/13/21 11:00 a child pentazocine lactate AdvReac Unknown loopy Verified 11/20/20 14:01 [From Talwin] bethanechol chloride AdvReac bladder Verified 11/20/20 14:01 [From Urecholine] clamped down fish derived AdvReac Nausea Verified 11/20/20 14:01 SEAFOOD AdvReac Vomiting Uncoded 11/20/20 14:01 Surgical History (Updated 11/20/20 @ 14:24 by Mishel Grossman) History of colonoscopy History of eye surgery History of foot surgery History of nasal septoplasty History of partial colectomy History of rectal surgery History of suprapubic catheter History of tonsillectomy History of transurethral resection of prostate History of urethral stent History of uvulectomy History Post Insertion Hx of colostomy Social History (Updated 09/28/18 @ 14:[address] Nelson Hirsch MD) Smoking Status: Never smoker Physical Exam Const alert and no apparent distress General Appearance: cooperative Exam Limitations: no limitations HEENT normocephalic and head/scalp atraumatic Eyes PERRL and EOMs intact bilaterally Neck supple and No nodes Resp normal air movement and clear to auscultation bilaterally Cardio regular rate and regular rhythm GI normal to inspection, nondistended, normoactive bowel sounds GI Narrative: ostomy and suprapubic catheter in place Extremity no clubbing, cyanosis or edema Skin Skin Narrative: sacral and L ischial ulcers clean, dry, no odor, some tunneling to bone. Neuro CN's II-XII intact bilaterally Medical Records Data Attestation: I reviewed the patient's medical records Lab / Micro Data Attestation: I reviewed the patient's lab results.
--- NOTE | 2021-02-23 12:56 | PCM.WC.PN ---
History of Present Illness Date of Service: 02/23/21 Chief Complaint: Recurrent left ischial/perineal pressure sore, Stage IV, with necrotic inferior extension and right ischial pressure sore, Stage II. History of Wound: Surgery 11/27/20 - Excision recurrent left ischial/perineal pressure sore, stage IV, with necrotic inferior extension with partial ostectomy for osteomyelitis. Wound Care - Wound VAC to 150 mmHg, to be changed 3 times per week to the left ischial ulcer and the sacral/perineal ulcer. Right ischial ulcer healed today. 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 Operative cultures - Morganella morganii, Enterococcus faecalis, and Corynebacterium striatum in the soft tissue and Morganella morganii, Enterococcus faecalis, and Corynebacterium striatum in the bone. He is being treated with Augmentin and Bactrim. Operative Pathology - acute and chronic osteomyelitis. Prealbumin from 11/28/20 was 13.9. Encourage nutritional supplementation with protein to help the healing process. HgbA1c from 11/25/20 was 7.0. Today he denies fever. His appetite is ok. Progress of Wound: Improved. Objective Data Objective Data Vital Signs: Vital Signs Temp Pulse Resp BP 97.2 F L 83 18 76/46 L 02/23/21 09:31 02/23/21 09:31 02/20/21 00:16 02/23/21 09:31 Body Mass Index (BMI) 25.3 Physical Exam Const alert and oriented x3 HEENT normocephalic Eyes PERRL Resp normal respiratory effort Cardio regular rate GI non-tender Palpation: soft Extremity normal capillary refill Skin Wound Narrative: Left ischial ulcer with bone exposure. Sacral ulcer beefy pink. Right ischial ulcer is healed today. Neuro CN's II-XII intact bilaterally Psych Appearance: grossly normal Debridement Note Debridement Note Wound debrided: Ischial ulcer Laterality: Left Wound Grade/Stage: Stage IV Type of Debridement: Excisional debridement Anesthesia Used: 4% Lidocaine Solution Depth: Down to and including healthy tissue, in the subcutaneous layer, to muscle and to bone Percentage of wound debrided: 100 Instrument Used: 7mm curette Tissue Removed: Subcutaneous tissue and slough into the muscle, there is bone exposed Severity: Fat Layer Exposed Amount of bleeding with debridement: Mild Bleeding Controlled with: Pressure and Compression and gauze Patient tolerated procedure: Patient tolerated procedure well Post-Debridement Measurements and Additional Note: Post-Debridement Measurements/Treatment - Nurse 1 - General Ulcer Assessment Start: 02/23/21 09:24 Freq: Status: Active Protocol: THERESE Activity Type Activity Date Activity User E-Sign Co-Sign Detail Recorded Client Recorded Date Recorded By Document 02/23/21 09:31 CORINA [id number] 02/23/21 09:41 CORINA 02/23/21 09:31 - Today's Visit Information Type of service Follow-up Visit (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 Any new allergies or adverse reactions No Had a fall/change in ADL's that may No increase risk of falls Signs or symptoms of abuse and/or No neglect since last visit Have you been in the hospital since your No last visit? Has dressing in place as prescribed Yes Has offloadiing in place as prescribed N/A Experienced any changes in pain level or No management Left Footwear Slipper Right Footwear Slipper Pain Scale: 0-10 Numeric Is Patient Pain Free? Yes - Nurse 1 - General Ulcer Measurement Start: 02/23/21 09:24 Freq: Status: Active Protocol: Activity Type Activity Date Activity User E-Sign Co-Sign Detail Recorded Client Recorded Date Recorded By Document 02/23/21 09:31 CORINA [id number] 02/23/21 09:41 CORINA 02/23/21 09:31 Wound Center Nurse 1 #18 R Ishium -Current Size (cm) - Length 0.1 -Current Size (cm) - Width 0.1 -Current Size (cm) - Depth 0.1 -Total Square Cm 0.01 -Exudate Amt None Present -Exudate Type Serosanguineous -Wound Margin Distinct, Outline Attached -Granulation Amt Small (1-33%) -Granulation Quality [place] -Necrosis Amt Small (1-33%) -Texture (Francia-wound Skin Appearance) Assessed, Scarring -Moisture (Francia-wound Skin Appearance) No Abnormality, Assessed -Color (Francia-wound Skin Appearance) No Abnormality, Assessed -Temperature (Francia-wound Skin No Abnormality Appearance) (Pt Warm) -Tenderness on Palpation (Francia-wound No Skin Appearance) -Ulcer Cleansing Soap and Water -Foul Odor after Cleansing No -Anesthetic Used 4% Lidocaine Solution #17 L Ishium -Current Size (cm) - Length 6.8 -Current Size (cm) - Width 2.9 -Current Size (cm) - Depth 1.5 -Total Square Cm 19.72 -Tunneling Position (O'clock) 11 -Tunneling Distance (cm) 10.6 -Undermining/Tunneling Starts (O'clock 8 ) -Undermining/Tunneling Ends (O'clock) 10 -Maximum Distance (cm) 6.1 -Exudate Amt Large -Exudate Type Serosanguineous -Wound Margin Distinct, Outline Attached -Granulation Amt Large (67-100%) -Granulation Quality Red -Necrosis Amt Small (1-33%) -Necrotic Tissue Type Adherent Slough -Texture (Francia-wound Skin Appearance) Assessed, Scarring -Moisture (Francia-wound Skin Appearance) Assessed, Maceration -Color (Francia-wound Skin Appearance) No Abnormality, Assessed -Temperature (Francia-wound Skin No Abnormality Appearance) (Pt Warm) -Tenderness on Palpation (Francia-wound No Skin Appearance) -Ulcer Cleansing Soap and Water -Foul Odor after Cleansing No -Anesthetic Used 4% Lidocaine Solution #16- sacrum -Current Size (cm) - Length 5 -Current Size (cm) - Width 5.5 -Current Size (cm) - Depth 3.5 -Total Square Cm 27.5 -Tunneling Position (O'clock) 11 -Tunneling Distance (cm) 4.4 -Undermining/Tunneling Starts (O'clock 7 ) -Undermining/Tunneling Ends (O'clock) 2 -Maximum Distance (cm) 3.6 -Exudate Amt Large -Exudate Type Serosanguineous -Wound Margin Distinct, Outline Attached -Granulation Amt Large (67-100%) -Granulation Quality Red -Necrosis Amt Small (1-33%) -Necrotic Tissue Type Adherent Slough -Structure Exposed Fat Layer Exposed -Texture (Francia-wound Skin Appearance) Assessed, Scarring -Color (Francia-wound Skin Appearance) No Abnormality, Assessed -Temperature (Francia-wound Skin No Abnormality Appearance) (Pt Warm) -Tenderness on Palpation (Francia-wound No Skin Appearance) -Ulcer Cleansing Soap and Water -Foul Odor after Cleansing No -Anesthetic Used 4% Lidocaine Solution WC - Nurse 2 - General Ulcer CM Notes Start: 02/23/21 09:24 Freq: Status: Active Protocol: Activity Type Activity Date Activity User E-Sign Co-Sign Detail Recorded Client Recorded Date Recorded By Document 02/23/21 10:01 CHRISTIANO [id number] 02/23/21 10:20 CHRISTIANO 02/23/21 10:01 Wound Center Nurse 2 #18 R Ishium -Time 10:09 -Correct Patient No -Correct Side, Site, Position No -Correct Procedure No -Procedure Performed No -Post Debridement (cm) - Length 0 -Post Debridement (cm) - Width 0 -Post Debridement (cm) - Depth 0 -Total Square (Post) (cm) 0 -Area of Debridement (cm) - Length 0 -Area of Debridement (cm) - Width 0 -Total Square (Area) (cm) 0 -Tunneling No -Undermining/Tunneling No -Circular Undermining No -Wound/Ulcer Outcome Healed- Epithelialized -Debridement - Subq, 1st 20sq cm No #17 L Ishium -Time 10:01 -Correct Patient Yes -Correct Side, Site, Position Yes -Correct Procedure Yes -Procedure Performed Yes -Type of Procedure Debridement -Clinical Debridement Muscle / Fascia -Tissue Removed Muscle -Post Debridement (cm) - Length 7.5 -Post Debridement (cm) - Width 3.5 -Post Debridement (cm) - Depth 8.6 -Total Square (Post) (cm) 26.25 -Area of Debridement (cm) - Length 7.5 -Area of Debridement (cm) - Width 3.5 -Total Square (Area) (cm) 26.25 -Tunneling No -Circular Undermining No -Wound/Ulcer Outcome Not Healed -Ulcer Cleansing Rinsed/ Irrigated with Saline -Foul Odor after Cleansing No -Bioengineered Tissue No -Bleeding Controlled with Pressure -Offloading No -Treatment Response Procedure Tolerated Well -Debridement - Subq, 1st 20sq cm No -Debridement - Muscle / Fascia, 1st No 20sq cm #16- sacrum -Time 10:02 -Correct Patient Yes -Correct Side, Site, Position Yes -Correct Procedure Yes -Procedure Performed Yes -Type of Procedure Debridement -Clinical Debridement Muscle / Fascia -Tissue Removed Muscle -Post Debridement (cm) - Length 5 -Post Debridement (cm) - Width 5 -Post Debridement (cm) - Depth 5 -Total Square (Post) (cm) 25 -Area of Debridement (cm) - Length 5 -Area of Debridement (cm) - Width 5 -Total Square (Area) (cm) 25 -Tunneling No -Undermining/Tunneling No -Circular Undermining No -Wound/Ulcer Outcome Not Healed -Ulcer Cleansing Rinsed/ Irrigated with Saline -Foul Odor after Cleansing No -Bioengineered Tissue No -Bleeding Controlled with Pressure -Offloading No -Treatment Response Procedure Tolerated Well -Debridement - Muscle / Fascia, 1st Yes 20sq cm -Debridement, Muscle/Fascia, ea addt'l 2 20sq cm or part thereof Pain Scale: 0-10 Numeric Is Patient Pain Free? Yes - Nurse 3 - General Ulcer D/C NN Start: 02/23/21 09:24 Freq: Status: Active Protocol: Activity Type Activity Date Activity User E-Sign Co-Sign Detail Recorded Client Recorded Date Recorded By Document 02/23/21 10:34 RIKKI [id number] 02/23/21 10:36 RIKKI 02/23/21 10:34 Wound Care Nurse 3 #17 L Ishium -Ulcer Cleansing Rinsed/ Irrigated with Saline -Foul Odor after Cleansing No -Negative Pressure Wound Therapy N/A -Other Dressing wet to dry then ABD -Primary Dressing Covered/Secured with Secured with Tape #16- sacrum -Ulcer Cleansing Rinsed/ Irrigated with Saline -Foul Odor after Cleansing No -Negative Pressure Wound Therapy N/A -Other Dressing wet to dry ABD pads -Primary Dressing Covered/Secured with Secured with Tape - Visit Discharge Discharge Condition Stable Ambulatory Status Wheelchair Medication Reconcilliation completed & No provided to patient/care provider Clinical Summary of Care Provided Yes Additional Wound Wound debrided: Sacral ulcer Wound Grade/Stage: Stage IV Type of Debridement: Excisional debridement Anesthesia Used: 4% Lidocaine Solution Depth: Down to and including healthy tissue, in the subcutaneous layer and to muscle Percentage of wound debrided: 100 Instrument Used: 7mm curette Tissue Removed: Subcutaneous tissue and slough Severity: Fat Layer Exposed Amount of bleeding with debridement: Mild Bleeding Controlled with: Pressure and Compression and gauze Patient tolerated procedure: Patient tolerated procedure well Assessment/Plan Assessment/Plan (1) Stage IV pressure ulcer of left buttock: CODE(S): L89.324 - Pressure ulcer of left buttock, stage 4 (2) Stage 4 pressure ulcer: CODE(S): L89.94 - Pressure ulcer of unspecified site, stage 4 QUALIFIERS: Pressure injury location: other site Qualified Code(s): L89.894 - Pressure ulcer of other site, stage 4 (3) Other chronic osteomyelitis, other site: CODE(S): M86.68 - Other chronic osteomyelitis, other site (4) Pressure ulcer of left hip, stage 4: CODE(S): L89.224 - Pressure ulcer of left hip, stage 4 (5) Right ischial pressure sore, stage 2: CODE(S): L89.312 - Pressure ulcer of right buttock, stage 2 (6) Malnutrition: CODE(S): E46 - Unspecified protein-calorie malnutrition (7) Quadriplegia: CODE(S): G82.50 - Quadriplegia, unspecified (8) Diabetes mellitus: CODE(S): E11.9 - Type 2 diabetes mellitus without complications (9) History of methicillin resistant Staphylococcus aureus infection: CODE(S): Z86.14 - Personal history of Methicillin resistant Staphylococcus aureus infection PLAN: Wound Care - Wound VAC at 150 mmHg to the left ischial ulcer and sacral/perineal ulcers. To be applied 3 times per week. The rectal mucous fistula will be covered with gauze and then drape before placing the VAC. He removes the wound VAC on the weekends because he doesn't have enough help on the week end if he would have issues with the wound VAC. He does daily Dakin's 0.25% moistened gauze covered with ABD on the week end. The right ischial ulcer is healed. Continue a barrier cream to periwound to help prevent maceration. Wound culture of left ischial ulcer 02/09/21 positive for Enterobacter cloacae, complex, Proteus mirabilis, VRE, Corynebacterium striatum, and Anaerobic cocci. He was started on Augmentin. Dr. Espinoza consulted and saw patient today due to Enterobacter resistant bacteria. It was decided to continue Augmentin for 6 weeks since his ulcers do look better today. If he worsens, he should be re-cultured and re-evaluated for IV antibiotics and debridement. He completed Augmentin and Bactrim for his operative cultures. They showed Morganella morganii, Enterococcus faecalis, and Corynebacterium striatum in both the soft tissue and the bone. His Pathology was positive for acute and chronic osteomyelitis. It was recommended to the patient to start IV antibiotics with Meropenem and Zyvox po after his surgery. He already has a port but would need admission for the administration of one dose of the antibiotic. Also an infusion company would help arrange delivery of the antibiotics to the home. The ulcers were looking clean at that time after his surgery on 11/27/20. He wanted to continue the po antibiotics at this time. He understands that if the ulcers show worsening or evidence of infection at future visits, then he would need admission to the hospital for IV antibiotics. He voices understanding. Prealbumin from 11/28/20 was 13.9. Encourage nutritional supplementation with protein to help the healing process. HgbA1c from 11/25/20 was 7.0. Encourage a low carb and low sugar diet. Followup two weeks.
[2021-03-09 09:51] VITALS: TEMP 35.5; BMI 25.3
--- NOTE | 2021-03-09 10:46 | PN.PCM_ITS ---
History of Present Illness Date of Service: 03/09/21 Chief Complaint: Recurrent left ischial/perineal pressure sore, Stage IV, with necrotic inferior extension and right ischial pressure sore, Stage II. History of Wound: Surgery 11/27/20 - Excision recurrent left ischial/perineal pressure sore, stage IV, with necrotic inferior extension with partial ostectomy for osteomyelitis. Wound Care - Wound VAC to 150 mmHg, to be changed 3 times per week to the left ischial ulcer and the sacral/perineal ulcer. Right ischial ulcer remains healed. 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 Operative cultures - Morganella morganii, Enterococcus faecalis, and Corynebacterium striatum in the soft tissue and Morganella morganii, Enterococcus faecalis, and Corynebacterium striatum in the bone. He is being treated with Augmentin and Bactrim. Operative Pathology - acute and chronic osteomyelitis. Prealbumin from 11/28/20 was 13.9. Encourage nutritional supplementation with protein to help the healing process. HgbA1c from 11/25/20 was 7.0. Today he denies fever. His appetite is ok. Progress of Wound: Stable. Objective Data Objective Data Vital Signs: Vital Signs Temp Pulse Resp BP 95.9 F L 83 18 76/46 L 03/09/21 09:51 02/23/21 09:31 02/20/21 00:16 02/23/21 09:31 Body Mass Index (BMI) 25.3 Charges/Coding Procedures Integumentary 111xxx-113xx: 15171 Char musc/fascia 20 sq cm/< Add On Codes: 40754 Char musc/fascia add-on (x2) Physical Exam Const alert and oriented x3 HEENT normocephalic Resp normal respiratory effort Cardio regular rate GI non-tender Palpation: soft Extremity normal capillary refill Skin Wound Narrative: Left ischial ulcer and left sacral/perineal ulcers are stable, tissue is beefy pink, there is bone exposed in both ulcers. Periwound excoriation seems mildly improved. Neuro CN's II-XII intact bilaterally Psych Appearance: grossly normal Debridement Note Debridement Note Wound debrided: Ischial ulcer Laterality: Left Wound Grade/Stage: Stagee IV Type of Debridement: Excisional debridement Anesthesia Used: 4% Lidocaine Solution Depth: Down to and including healthy tissue, to muscle and to bone Percentage of wound debrided: 100 Instrument Used: 7mm curette Tissue Removed: Subcutaneous tissue and slough into the muscle with bone exposure Severity: Fat Layer Exposed Amount of bleeding with debridement: Mild Bleeding Controlled with: Pressure and Compression and gauze Patient tolerated procedure: Patient tolerated procedure well Post-Debridement Measurements and Additional Note: Post-Debridement Measurements/Treatment CHANTELLE - Nurse 1 - General Ulcer Assessment Start: 02/23/21 09:24 Freq: Status: Active Protocol: THERESE Activity Type Activity Date Activity User E-Sign Co-Sign Detail Recorded Client Recorded Date Recorded By Document 02/23/21 09:31 KR [id number] 02/23/21 09:41 KR Document 03/09/21 09:51 AK [id number] 03/09/21 09:55 AK 02/23/21 03/09/21 09:31 09:51 CHANTELLE - Today's Visit Information Type of service Follow-up Visit Follow-up Visit (Physician/SOFTWARE SALES REPRESENTATIVE (Physician/SOFTWARE SALES REPRESENTATIVE ) ) Arrival Mode Wheelchair Wheelchair Transfer Assistance Antony Lift Patient Identification Verified (Name & Yes Yes ) Patient Requires Transmission-Based No Precautions Safety Precautions NA Height and Weight Body Mass Index (BMI) 25.3 25.3 BMI Classification Overweight Overweight Vital Signs Temperature (97.8 F-99.1 F) 97.2 F L 95.9 F L Temperature Source Temporal Temporal Pulse Rate (60-100) 83 Pulse Location Monitor Blood Pressure (90/60-120/80) 76/46 L Blood Pressure Mean (mm Hg) 56 Source Monitor Position Semi-Fowlers Blood Pressure Location Right Arm History Since Last Visit- (Skip if this is Patient's initial visit) Have you changed medications since your No No last visit? Any new allergies or adverse reactions No No Had a fall/change in ADL's that may No No increase risk of falls Signs or symptoms of abuse and/or No No neglect since last visit Have you been in the hospital since your No No last visit? Has dressing in place as prescribed Yes Yes Has compression in place as prescribed N/A Has offloadiing in place as prescribed N/A N/A Experienced any changes in pain level or No No management Left Footwear Slipper Regular Shoe Right Footwear Slipper Regular Shoe Pain Scale: 0-10 Numeric Is Patient Pain Free? Yes CHANTELLE - Nurse 1 - General Ulcer Measurement Start: 02/23/21 09:24 Freq: Status: Active Protocol: Activity Type Activity Date Activity User E-Sign Co-Sign Detail Recorded Client Recorded Date Recorded By Document 02/23/21 09:31 KR [id number] 02/23/21 09:41 KR Document 03/09/21 09:51 AK [id number] 03/09/21 09:55 AK 02/23/21 03/09/21 09:31 09:51 Wound Center Nurse 1 #18 R Ishium -Current Size (cm) - Length 0.1 -Current Size (cm) - Width 0.1 -Current Size (cm) - Depth 0.1 -Total Square Cm 0.01 -Exudate Amt None Present -Exudate Type Serosanguineous -Wound Margin Distinct, Outline Attached -Granulation Amt Small (1-33%) -Granulation Quality [place] -Necrosis Amt Small (1-33%) -Texture (Francia-wound Skin Appearance) Assessed, Scarring -Moisture (Francia-wound Skin Appearance) No Abnormality, Assessed -Color (Francia-wound Skin Appearance) No Abnormality, Assessed -Temperature (Francia-wound Skin No Abnormality Appearance) (Pt Warm) -Tenderness on Palpation (Francia-wound No Skin Appearance) -Ulcer Cleansing Soap and Water -Foul Odor after Cleansing No -Anesthetic Used 4% Lidocaine Solution #17 L Ishium -Combined with other wound No -Current Size (cm) - Length 6.8 5.7 -Current Size (cm) - Width 2.9 3 -Current Size (cm) - Depth 1.5 0.9 -Total Square Cm 19.72 17.1 -Photo Taken No -Epithelialization None Present -Tunneling No -Tunneling Position (O'clock) 11 -Tunneling Distance (cm) 10.6 -Undermining/Tunneling Yes -Undermining/Tunneling Starts (O'clock 8 7 ) -Undermining/Tunneling Ends (O'clock) 10 11 -Maximum Distance (cm) 6.1 6.3 -Circular Undermining No -Classification - Pressure Ulcer Stage 3 -Change in Wound Grade/Stage No -Exudate Amt Large Small -Exudate Type Serosanguineous Serosanguineous -Wound Margin Distinct, Distinct, Outline Outline Attached Attached -Granulation Amt Large (67-100%) Medium (34-66%) -Granulation Quality Red [place],Red -Slough/Fibrin Yes -Necrosis Amt Small (1-33%) Small (1-33%) -Necrotic Tissue Type Adherent Slough Adherent Slough -Structure Exposed Bone -Texture (Francia-wound Skin Appearance) Assessed, No Abnormality, Scarring Assessed -Moisture (Francia-wound Skin Appearance) Assessed, No Abnormality, Maceration Assessed -Color (Francia-wound Skin Appearance) No Abnormality, No Abnormality, Assessed Assessed -Temperature (Francia-wound Skin No Abnormality No Abnormality Appearance) (Pt Warm) (Pt Warm) -Tenderness on Palpation (Francia-wound No Yes Skin Appearance) -Ulcer Cleansing Soap and Water Soap and Water -Foul Odor after Cleansing No No -Anesthetic Used 4% Lidocaine 4% Lidocaine Solution Solution #16- sacrum -Combined with other wound No -Current Size (cm) - Length 5 4.3 -Current Size (cm) - Width 5.5 5 -Current Size (cm) - Depth 3.5 2.8 -Total Square Cm 27.5 21.5 -Photo Taken No -Epithelialization None Present -Tunneling No -Tunneling Position (O'clock) 11 -Tunneling Distance (cm) 4.4 -Undermining/Tunneling Yes -Undermining/Tunneling Starts (O'clock 7 6 ) -Undermining/Tunneling Ends (O'clock) 2 1 -Maximum Distance (cm) 3.6 2.8 -Circular Undermining No -Classification - Pressure Ulcer Stage 4 -Change in Wound Grade/Stage No -Exudate Amt Large Medium -Exudate Type Serosanguineous Serosanguineous -Wound Margin Distinct, Distinct, Outline Outline Attached Attached -Granulation Amt Large (67-100%) Small (1-33%) -Granulation Quality Red N/A -Slough/Fibrin Yes -Necrosis Amt Small (1-33%) Small (1-33%) -Necrotic Tissue Type Adherent Slough Adherent Slough -Structure Exposed Fat Layer Bone Exposed -Texture (Francia-wound Skin Appearance) Assessed, No Abnormality, Scarring Assessed -Moisture (Francia-wound Skin Appearance) No Abnormality, Assessed -Color (Francia-wound Skin Appearance) No Abnormality, Assessed -Temperature (Francia-wound Skin No Abnormality No Abnormality Appearance) (Pt Warm) (Pt Warm) -Tenderness on Palpation (Francia-wound No Skin Appearance) -Ulcer Cleansing Soap and Water Soap and Water -Foul Odor after Cleansing No No -Anesthetic Used 4% Lidocaine 4% Lidocaine Solution Solution WC - Nurse 2 - General Ulcer CM Notes Start: 02/23/21 09:24 Freq: Status: Active Protocol: Activity Type Activity Date Activity User E-Sign Co-Sign Detail Recorded Client Recorded Date Recorded By Document 02/23/21 10:01 [email or web address] [id number] 02/23/21 10:20 Document 03/09/21 10:06 [id number] 03/09/21 10:12 02/23/21 03/09/21 10:01 10:06 Wound Center Nurse 2 #18 R Ishium -Time 10:09 -Correct Patient No -Correct Side, Site, Position No -Correct Procedure No -Procedure Performed No -Post Debridement (cm) - Length 0 -Post Debridement (cm) - Width 0 -Post Debridement (cm) - Depth 0 -Total Square (Post) (cm) 0 -Area of Debridement (cm) - Length 0 -Area of Debridement (cm) - Width 0 -Total Square (Area) (cm) 0 -Tunneling No -Undermining/Tunneling No -Circular Undermining No -Wound/Ulcer Outcome Healed- Epithelialized -Debridement - Subq, 1st 20sq cm No #17 L Ishium -Time 10:01 10:06 -Correct Patient Yes Yes -Correct Side, Site, Position Yes Yes -Correct Procedure Yes Yes -Procedure Performed Yes Yes -Type of Procedure Debridement Debridement -Clinical Debridement Muscle / Fascia Muscle / Fascia -Tissue Removed Muscle Muscle,Fascia -Post Debridement (cm) - Length 7.5 6 -Post Debridement (cm) - Width 3.5 3.5 -Post Debridement (cm) - Depth 8.6 10.6 -Total Square (Post) (cm) 26.25 21.0 -Area of Debridement (cm) - Length 7.5 6 -Area of Debridement (cm) - Width 3.5 3.5 -Total Square (Area) (cm) 26.25 21.0 -Tunneling No No -Undermining/Tunneling No -Circular Undermining No No -Wound/Ulcer Outcome Not Healed Not Healed -Ulcer Cleansing Rinsed/ Rinsed/ Irrigated with Irrigated with Saline Saline -Foul Odor after Cleansing No No -Bioengineered Tissue No No -Bleeding Controlled with Pressure Pressure -Offloading No No -Treatment Response Procedure Procedure Tolerated Well Tolerated Well -Debridement - Subq, 1st 20sq cm No -Debridement - Muscle / Fascia, 1st No Yes 20sq cm -Debridement, Muscle/Fascia, ea addt'l 2 20sq cm or part thereof #16- sacrum -Time 10:02 10:07 -Correct Patient Yes Yes -Correct Side, Site, Position Yes Yes -Correct Procedure Yes Yes -Procedure Performed Yes Yes -Type of Procedure Debridement Debridement -Clinical Debridement Muscle / Fascia Muscle / Fascia -Tissue Removed Muscle Muscle,Fascia -Post Debridement (cm) - Length 5 5 -Post Debridement (cm) - Width 5 4.3 -Post Debridement (cm) - Depth 5 4 -Total Square (Post) (cm) 25 21.5 -Area of Debridement (cm) - Length 5 5 -Area of Debridement (cm) - Width 5 4.3 -Total Square (Area) (cm) 25 21.5 -Tunneling No No -Undermining/Tunneling No No -Circular Undermining No No -Wound/Ulcer Outcome Not Healed Not Healed -Ulcer Cleansing Rinsed/ Rinsed/ Irrigated with Irrigated with Saline Saline -Foul Odor after Cleansing No No -Bioengineered Tissue No No -Bleeding Controlled with Pressure Pressure -Offloading No No -Treatment Response Procedure Procedure Tolerated Well Tolerated Well -Debridement - Muscle / Fascia, 1st Yes No 20sq cm -Debridement, Muscle/Fascia, ea addt'l 2 20sq cm or part thereof Pain Scale: 0-10 Numeric Is Patient Pain Free? Yes Yes WC - Nurse 3 - General Ulcer D/C NN Start: 02/23/21 09:24 Freq: Status: Active Protocol: Activity Type Activity Date Activity User E-Sign Co-Sign Detail Recorded Client Recorded Date Recorded By Document 02/23/21 10:34 AK [id number] 02/23/21 10:36 AK Document 03/09/21 10:29 DL [id number] 03/09/21 10:30 DL 02/23/21 03/09/21 10:34 10:29 Wound Care Nurse 3 #17 L Ishium -Ulcer Cleansing Rinsed/ Soap and Water Irrigated with Saline -Foul Odor after Cleansing No No -Negative Pressure Wound Therapy N/A -Primary Dressing Applied Silvercel -Other Dressing wet to dry then ABD -Primary Dressing Covered/Secured with Secured with Dry Gauze, Tape Secured with Tape -Silvercel 1 #16- sacrum -Ulcer Cleansing Rinsed/ Soap and Water Irrigated with Saline -Foul Odor after Cleansing No No -Negative Pressure Wound Therapy N/A -Other Dressing wet to dry ABD Silvercell pads -Primary Dressing Covered/Secured with Secured with Dry Gauze, Tape Secured with Tape Treatment Response Procedure Tolerated Well Pain Scale: 0-10 Numeric Is Patient Pain Free? Yes WC - Visit Discharge Discharge Condition Stable Stable Ambulatory Status Wheelchair Wheelchair Transportation Private Auto Medication Reconcilliation completed & No provided to patient/care provider Clinical Summary of Care Provided Yes Facility Type Home Health Orders Sent Yes Additional Wound Wound debrided: Sacral/perineal ulcer Wound Grade/Stage: Stage IV Type of Debridement: Excisional debridement Anesthesia Used: 4% Lidocaine Solution Depth: Down to and including healthy tissue, in the subcutaneous layer, to muscle and to bone Percentage of wound debrided: 100 Instrument Used: 7mm curette Tissue Removed: Subcutaneous tissue and slough into the muscle with bone exposure Severity: Fat Layer Exposed Amount of bleeding with debridement: Mild Bleeding Controlled with: Pressure and Compression and gauze Patient tolerated procedure: Patient tolerated procedure well Assessment/Plan Assessment/Plan (1) Stage IV pressure ulcer of left buttock: CODE(S): L89.324 - Pressure ulcer of left buttock, stage 4 (2) Stage IV pressure ulcer of sacral region: CODE(S): L89.154 - Pressure ulcer of sacral region, stage 4 (3) Other chronic osteomyelitis, other site: CODE(S): M86.68 - Other chronic osteomyelitis, other site (4) Malnutrition: CODE(S): E46 - Unspecified protein-calorie malnutrition (5) Chronic incomplete quadriplegia: CODE(S): G82.50 - Quadriplegia, unspecified (6) Diabetes mellitus: CODE(S): E11.9 - Type 2 diabetes mellitus without complications (7) History of methicillin resistant Staphylococcus aureus infection: CODE(S): Z86.14 - Personal history of Methicillin resistant Staphylococcus aureus infection PLAN: Wound Care - Wound VAC at 150 mmHg to the left ischial ulcer and sacral/perineal ulcers. To be applied 3 times per week. The rectal mucous fistula will be covered with gauze and then drape before placing the VAC. He will do daily Dakin's 0.25% moistened gauze covered with ABD until the VAC can be reapplied by home health. Today we will place silver alginate covered with ABD in the wound center because we do not have any dakins. The right ischial ulcer remains healed. Continue a barrier cream to periwound to help prevent maceration. Wound culture of left ischial ulcer 02/09/21 positive for Enterobacter cloacae, complex, Proteus mirabilis, VRE, Corynebacterium striatum, and Anaerobic cocci. He was started on Augmentin. Dr. Espinoza consulted and saw patient today due to Enterobacter resistant bacteria. It was decided to continue Augmentin for 6 weeks since his ulcers do look better today. If he worsens, he should be re- cultured and re-evaluated for IV antibiotics and debridement. He completed Augmentin and Bactrim for his operative cultures. They showed Morganella morganii, Enterococcus faecalis, and Corynebacterium striatum in both the soft tissue and the bone. His Pathology was positive for acute and chronic osteomyelitis. It was recommended to the patient to start IV antibiotics with Meropenem and Zyvox po after his surgery. He already has a port but would need admission for the administration of one dose of the antibiotic. Also an infusion company would help arrange delivery of the antibiotics to the home. The ulcers were looking clean at that time after his surgery on 11/27/20. He wanted to continue the po antibiotics at this time. He understands that if the ulcers show worsening or evidence of infection at future visits, then he would need admission to the hospital for IV antibiotics. He voices understanding. Prealbumin from 11/28/20 was 13.9. Encourage nutritional supplementation with protein to help the healing process. HgbA1c from 11/25/20 was 7.0. Encourage a low carb and low sugar diet. Followup two weeks.
== END 2021-03-22 23:59 ==
LOC: WC 09:45
PROVIDERS: PCP Internal Medicine; Visit Provider Nurse Practitioner Family
DX: L89.324 Pressure ulcer of left buttock, stage 4 (principal); L89.154 Pressure ulcer of sacral region, stage 4; L89.894 Pressure ulcer of other site, stage 4; L89.224 Pressure ulcer of left hip, stage 4; L89.312 Pressure ulcer of right buttock, stage 2; E11.69 Type 2 diabetes mellitus with other specified complication; M86.68 Other chronic osteomyelitis, other site; G82.50 Quadriplegia, unspecified; E11.42 Type 2 diabetes mellitus with diabetic polyneuropathy; I10 Essential (primary) hypertension; G47.33 Obstructive sleep apnea (adult) (pediatric); E66.9 Obesity, unspecified; Z68.25 Body mass index [BMI] 25.0-25.9, adult; Z79.82 Long term (current) use of aspirin; Z79.84 Long term (current) use of oral hypoglycemic drugs; Z79.899 Other long term (current) drug therapy; Z86.14 Personal history of Methicillin resistant Staphylococcus aureus infection; Z90.49 Acquired absence of other specified parts of digestive tract
CPT/HCPCS: 11043; 11046

== ENCOUNTER → 2021-03-09 11:07 | Outpatient (CLI) | payer MEDICARE, OTHER, SELFPAY ==
[2021-03-09] MEDS: 0.9 % NaCl (Sterile) Posiflush 10 mL IV (11:32)
== END ==
PROVIDERS: PCP Internal Medicine; Referring Provider Surgery; Visit Provider Surgery
DX: Z45.2 Encounter for adjustment and management of vascular access device (principal); L89.324 Pressure ulcer of left buttock, stage 4; L89.154 Pressure ulcer of sacral region, stage 4; L89.894 Pressure ulcer of other site, stage 4; L89.224 Pressure ulcer of left hip, stage 4; L89.312 Pressure ulcer of right buttock, stage 2; E11.69 Type 2 diabetes mellitus with other specified complication; M86.68 Other chronic osteomyelitis, other site; G82.50 Quadriplegia, unspecified; E11.42 Type 2 diabetes mellitus with diabetic polyneuropathy; I10 Essential (primary) hypertension; G47.33 Obstructive sleep apnea (adult) (pediatric); E66.9 Obesity, unspecified; Z68.25 Body mass index [BMI] 25.0-25.9, adult; Z79.82 Long term (current) use of aspirin; Z79.84 Long term (current) use of oral hypoglycemic drugs; Z79.899 Other long term (current) drug therapy; Z86.14 Personal history of Methicillin resistant Staphylococcus aureus infection; Z90.49 Acquired absence of other specified parts of digestive tract
CPT/HCPCS: 11043; 11046; 96523

== ENCOUNTER 2021-03-23 09:45 | Outpatient (RCR) | payer MEDICARE, OTHER, SELFPAY ==
[2021-03-23 00:12] VITALS: BP 76/46; PULSE 83; RESP 18; TEMP 35.5; BMI 25.3
[2021-03-23 09:38] VITALS: TEMP 36.4; BMI 25.3
--- NOTE | 2021-03-23 23:42 | PN.PCM_ITS ---
History of Present Illness Date of Service: 03/23/21 Chief Complaint: Recurrent left ischial/perineal pressure sore, Stage IV, with inferior extension and extension to the left perianal area. History of Wound: Surgery 11/27/20 - Excision recurrent left ischial/perineal pressure sore, stage IV, with necrotic inferior extension with partial ostectomy for osteomyelitis. Wound Care - Wound VAC to 150 mmHg, to be changed 3 times per week to the left ischial ulcer and the sacral/perineal ulcer. Right ischial ulcer remains healed. 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 Operative cultures - Morganella morganii, Enterococcus faecalis, and Corynebacterium striatum in the soft tissue and Morganella morganii, Enterococcus faecalis, and Corynebacterium striatum in the bone. He was treated with Augmentin and Bactrim. Infectious Diseases saw the patient and stated that as long the wound was improving, we can continue the oral antibiotics. If the wounds worsen, will have to start IV antibiotics. Patient already has a port. Operative Pathology - acute and chronic osteomyelitis. Prealbumin from 11/28/20 was 13.9. Encourage nutritional supplementation with protein to help the healing process. HgbA1c from 11/25/20 was 7.0. Today he denies fever. His appetite is ok. 07/29/16 - Excision recurrent left trochanteric pressure sore, stage IV, with partial ostectomy for osteomyelitis. Reconstruction with left inferior gluteal fasciocutaneous bilobed transposition flap. 06/08/16 - 1. Excision recurrent left ischial/trochanteric pressure sore with partial ostectomy for osteomyelitis. 2. Reconstruction with myocutaneous flaps. 10/02/15 - 1. Excision of recurrent left ischial/perineal pressure sore, stage IV, with partial ostectomy for osteomyelitis. 2. Reconstruction with left vastus lateralis muscular rotation flap and split- thickness skin graft from left posterolateral back (30 square cm). 08/12/15 - Excision recurrent left ischial/perineal pressure sore, stage IV, with partial ostectomy for osteomyelitis. 10/17/14 - 1. Excision left ischial/perineal pressure sore with partial ostectomy for osteomyelitis. 2. Complex reconstruction left ischial/perineal pressure sore wound with left hamstrings V-Y myocutaneous advancement flap and left gracilis muscular advancement flap and split-thickness skin graft from the left flank (21 square cm). 09/24/14 - Excision left ischial/perineal pressure sore with partial ostectomy for osteomyelitis. 07/09/14 - Excision left ischial/perineal pressure sore with partial ostectomy for osteomyelitis. Progress of Wound: Stable with granulation tissue but there is increased undermining from the inferior ulcer up toward the hip joint. Objective Data Objective Data Vital Signs: Vital Signs Temp Pulse Resp BP 97.6 F L 83 18 76/46 L 03/23/21 09:38 03/23/21 00:12 03/23/21 00:12 03/23/21 00:12 Body Mass Index (BMI) 25.3 Lab / Micro Data Attestation: I reviewed the patient's lab results. Charges/Coding Procedures Integumentary 111xxx-113xx: [id number] Char musc/fascia 20 sq cm/< (ICD-10 - L89.324, L98.419, M86.68, G82.50, Z86.14, E11.9) Add On Codes: 53500 Char musc/fascia add-on (X 2 units ICD-10 - L89.324, L98.419, M86.68, G82.50, Z86.14, E11.9) Debridement Note Debridement Note Wound debrided: #16 Left ischial/perineal area with extension to left perianal area. Laterality: Left Wound Grade/Stage: IV. Type of Debridement: Excisional debridement Anesthesia Used: 4% Lidocaine Solution Depth: Down to and including healthy tissue, in the subcutaneous layer, to mus jose and to bone (bone is exposed but not debrided.) Percentage of wound debrided: 100 Instrument Used: 7mm curette Tissue Removed: subcutaneous tissue and muscle. Severity: Fat Layer Exposed (muscle is exposed. bone is exposed but not debrided.) Amount of bleeding with debridement: Mild Bleeding Controlled with: Pressure and Compression and gauze Patient tolerated procedure: Patient tolerated procedure well Operative Diagnosis: there is undermining laterally but does not combine with the left ischial Post-Debridement Measurements and Additional Note: Post-Debridement Measurements/Treatment WC - Nurse 1 - General Ulcer Assessment Start: 03/23/21 09:36 Freq: Status: Active Protocol: LOWEXLance Activity Type Activity Date Activity User E-Sign Co-Sign Detail Recorded Client Recorded Date Recorded By Document 03/23/21 09:38 CORINA [id number] 03/23/21 09:44 CORINA 03/23/21 09:38 - Today's Visit Information Type of service Follow-up Visit (Physician/PARTS REPRESENTATIVE ) Arrival Mode Wheelchair Transfer Assistance Antony Lift Patient Identification Verified (Name & Yes ) Height and Weight Body Mass Index (BMI) 25.3 BMI Classification Overweight Vital Signs Temperature (97.8 F-99.1 F) 97.6 F L Temperature Source Temporal History Since Last Visit- (Skip if this is Patient's initial visit) Have you changed medications since your No last visit? Any new allergies or adverse reactions No Had a fall/change in ADL's that may No increase risk of falls Signs or symptoms of abuse and/or No neglect since last visit Have you been in the hospital since your No last visit? Has dressing in place as prescribed Yes Has compression in place as prescribed N/A Has offloadiing in place as prescribed N/A Experienced any changes in pain level or No management Pain Scale: 0-10 Numeric Is Patient Pain Free? Yes - Nurse 1 - General Ulcer Measurement Start: 03/23/21 09:36 Freq: Status: Active Protocol: Activity Type Activity Date Activity User E-Sign Co-Sign Detail Recorded Client Recorded Date Recorded By Document 03/23/21 09:38 KR [id number] 03/23/21 09:44 CORINA 03/23/21 09:38 Wound Center Nurse 1 #17 L Ishium -Current Size (cm) - Length 5.7 -Current Size (cm) - Width 2.8 -Current Size (cm) - Depth 0.1 -Total Square Cm 15.96 -Undermining/Tunneling Starts (O'clock 8 ) -Undermining/Tunneling Ends (O'clock) 11 -Maximum Distance (cm) 7.6 -Exudate Amt Medium -Exudate Type Serosanguineous -Wound Margin Distinct, Outline Attached -Granulation Amt Medium (34-66%) -Granulation Quality Red -Necrosis Amt None Present (0 %) -Structure Exposed Bone -Texture (Francia-wound Skin Appearance) Assessed, Scarring -Moisture (Francia-wound Skin Appearance) No Abnormality, Assessed -Color (Francia-wound Skin Appearance) No Abnormality, Assessed -Temperature (Francia-wound Skin No Abnormality Appearance) (Pt Warm) -Tenderness on Palpation (Francia-wound No Skin Appearance) -Ulcer Cleansing Soap and Water -Foul Odor after Cleansing No -Anesthetic Used 4% Lidocaine Solution #16- perineal with extension to left perianal area -Current Size (cm) - Length 4.3 -Current Size (cm) - Width 3.8 -Current Size (cm) - Depth 2 -Total Square Cm 16.34 -Undermining/Tunneling Starts (O'clock 7 ) -Undermining/Tunneling Ends (O'clock) 2 -Maximum Distance (cm) 1.6 -Exudate Amt Medium -Exudate Type Serosanguineous -Wound Margin Distinct, Outline Attached -Granulation Amt Large (67-100%) -Granulation Quality Red -Necrosis Amt Small (1-33%) -Necrotic Tissue Type Adherent Slough -Texture (Francia-wound Skin Appearance) Assessed, Scarring -Moisture (Francia-wound Skin Appearance) No Abnormality, Assessed -Color (Francia-wound Skin Appearance) No Abnormality, Assessed -Temperature (Francia-wound Skin No Abnormality Appearance) (Pt Warm) -Tenderness on Palpation (Francia-wound No Skin Appearance) -Ulcer Cleansing Soap and Water -Foul Odor after Cleansing No -Anesthetic Used 4% Lidocaine Solution WC - Nurse 2 - General Ulcer CM Notes Start: 03/23/21 09:36 Freq: Status: Active Protocol: Activity Type Activity Date Activity User E-Sign Co-Sign Detail Recorded Client Recorded Date Recorded By Document 03/23/21 10:27 CHRISTIANO [id number] 03/23/21 10:43 CHRISTIANO Edit Result 03/23/21 10:27 CHRISTIANO (1) [id number] 03/23/21 10:50 CHRISTIANO (1) #17 L Ishium - Time => 10:45 - Correct Patient No => Yes - Correct Side, Site, Position No => Yes - Correct Procedure No => Yes - Procedure Performed No => Yes - Type of Procedure => Debridement - Clinical Debridement => Muscle / Fascia - Tissue Removed => Fascia - Post Debridement (cm) - Length => 6.5 - Post Debridement (cm) - Width => 4 - Post Debridement (cm) - Depth => 3.5 - Total Square (Post) (cm) => 26.0 - Area of Debridement (cm) - Length => 6.5 - Area of Debridement (cm) - Width => 4 - Total Square (Area) (cm) => 26.0 - Tunneling => Yes - Tunneling Position (O'clock) => 2 - Tunneling Distance (cm) => 9.5 - Undermining/Tunneling => No - Circular Undermining => No - Ulcer Cleansing => Rinsed/Irrigated => with Saline - Foul Odor after Cleansing => No - Bioengineered Tissue => No - Bleeding Controlled with => Pressure - Offloading => No - Treatment Response => Procedure => Tolerated Well - Debridement - Muscle / Fascia, 1st => Yes 20sq cm - Debridement, Muscle/Fascia, ea addt'l => 1 20sq cm or part thereof #16- sacrum - Time => 10:46 - Correct Patient No => Yes - Correct Side, Site, Position No => Yes - Correct Procedure No => Yes - Procedure Performed No => Yes - Type of Procedure => Debridement - Clinical Debridement => Muscle / Fascia - Tissue Removed => Muscle,Fascia - Post Debridement (cm) - Length => 5.5 - Post Debridement (cm) - Width => 5 - Post Debridement (cm) - Depth => 2.7 - Total Square (Post) (cm) => 27.5 - Area of Debridement (cm) - Length => 5.5 - Area of Debridement (cm) - Width => 5 - Total Square (Area) (cm) => 27.5 - Tunneling => No - Undermining/Tunneling => No - Circular Undermining => No - Ulcer Cleansing => Rinsed/Irrigated => with Saline - Foul Odor after Cleansing => No - Bioengineered Tissue => No - Bleeding Controlled with => Pressure - Offloading => No - Treatment Response => Procedure => Tolerated Well - Debridement - Muscle / Fascia, 1st => No 20sq cm - Debridement, Muscle/Fascia, ea addt'l => 1 20sq cm or part thereof 03/23/21 10:27 Wound Center Nurse 2 #17 L Ishium -Time 10:45 -Correct Patient Yes -Correct Side, Site, Position Yes -Correct Procedure Yes -Procedure Performed Yes -Type of Procedure Debridement -Clinical Debridement Muscle / Fascia -Tissue Removed Fascia -Post Debridement (cm) - Length 6.5 -Post Debridement (cm) - Width 4 -Post Debridement (cm) - Depth 3.5 -Total Square (Post) (cm) 26.0 -Area of Debridement (cm) - Length 6.5 -Area of Debridement (cm) - Width 4 -Total Square (Area) (cm) 26.0 -Tunneling Yes -Tunneling Position (O'clock) 2 -Tunneling Distance (cm) 9.5 -Undermining/Tunneling No -Circular Undermining No -Wound/Ulcer Outcome Not Healed -Ulcer Cleansing Rinsed/ Irrigated with Saline -Foul Odor after Cleansing No -Bioengineered Tissue No -Bleeding Controlled with Pressure -Offloading No -Treatment Response Procedure Tolerated Well -Debridement - Muscle / Fascia, 1st Yes 20sq cm -Debridement, Muscle/Fascia, ea addt'l 1 20sq cm or part thereof #16- perineal with extension to left perianal area -Time 10:46 -Correct Patient Yes -Correct Side, Site, Position Yes -Correct Procedure Yes -Procedure Performed Yes -Type of Procedure Debridement -Clinical Debridement Muscle / Fascia -Tissue Removed Muscle,Fascia -Post Debridement (cm) - Length 5.5 -Post Debridement (cm) - Width 5 -Post Debridement (cm) - Depth 2.7 -Total Square (Post) (cm) 27.5 -Area of Debridement (cm) - Length 5.5 -Area of Debridement (cm) - Width 5 -Total Square (Area) (cm) 27.5 -Tunneling No -Undermining/Tunneling No -Circular Undermining No -Wound/Ulcer Outcome Not Healed -Ulcer Cleansing Rinsed/ Irrigated with Saline -Foul Odor after Cleansing No -Bioengineered Tissue No -Bleeding Controlled with Pressure -Offloading No -Treatment Response Procedure Tolerated Well -Debridement - Muscle / Fascia, 1st No 20sq cm -Debridement, Muscle/Fascia, ea addt'l 1 20sq cm or part thereof Pain Scale: 0-10 Numeric Is Patient Pain Free? Yes WC - Nurse 3 - General Ulcer D/C NN Start: 03/23/21 09:36 Freq: Status: Active Protocol: Activity Type Activity Date Activity User E-Sign Co-Sign Detail Recorded Client Recorded Date Recorded By Document 03/23/21 11:31 DL [id number] 03/23/21 11:33 DL 03/23/21 11:31 Wound Care Nurse 3 #17 L Ishium -Ulcer Cleansing Rinsed/ Irrigated with Saline -Foul Odor after Cleansing No -Primary Dressing Applied Other -Other Dressing dakins, -Primary Dressing Covered/Secured with Secured with Tape,Other -Other Covering abd #16- perineal with extension to left perianal area -Ulcer Cleansing Rinsed/ Irrigated with Saline -Foul Odor after Cleansing No -Primary Dressing Applied Optilok 6.5x10, Other -Other Dressing dakins moistened gauze -Optilok 6.5x10 1 Treatment Response Procedure Tolerated Well Pain Scale: 0-10 Numeric Is Patient Pain Free? Yes WC - Visit Discharge Discharge Condition Stable Ambulatory Status Wheelchair Transportation Private Auto Facility Type Home Health Additional Wound Wound debrided: #17 Left ischial area with inferior extension. Laterality: Left Wound Grade/Stage: IV. Type of Debridement: Excisional debridement Anesthesia Used: 4% Lidocaine Solution Depth: Down to and including healthy tissue, in the subcutaneous layer and to muscle (bone is palpable but not exposed.) Percentage of wound debrided: 100 Instrument Used: 7mm curette Tissue Removed: subcutaneous tissue and muscle. Severity: Fat Layer Exposed (muscle is exposed. bone is palpable but not exposed.) Amount of bleeding with debridement: Mild Bleeding Controlled with: Pressure and Compression and gauze Patient tolerated procedure: Patient tolerated procedure well and - (there is undermining of the pressure sore superiorly to the left trochanteric bone and clinically is not smooth to palpation and suspicious for osteomyelitis and left hip infection.) Assessment/Plan Assessment/Plan (1) Pressure sore of left ischium, stage 4: CODE(S): L89.324 - Pressure ulcer of left buttock, stage 4 (2) History of methicillin resistant Staphylococcus aureus infection: CODE(S): Z86.14 - Personal history of Methicillin resistant Staphylococcus aureus infection (3) Non-pressure chronic ulcer of buttock: CODE(S): L98.419 - Non-pressure chronic ulcer of buttock with unspecified severity (4) Other chronic osteomyelitis, other site: CODE(S): M86.68 - Other chronic osteomyelitis, other site (5) Quadriplegia: CODE(S): G82.50 - Quadriplegia, unspecified (6) Diabetes mellitus: CODE(S): E11.9 - Type 2 diabetes mellitus without complications PLAN: Patient has complex recurrent pressure sores involving his left ischial area with extension inferiorly and extension to the perineal and left perianal area. He was using the VAC for his wound care. However, he states he no longer has Home Health Services, so will change the wound care to Dakins dressing changes daily. He has finished his antibiotics (Augmentin and Bactrim). The ulcers look clean with good granulation tissue. There is undermining that is of concern. The left ischial/perineal pressure sore with extension to the perianal has undermining laterally. The left ischial pressure sore with inferior extension has undermining superiorly to the hip joint. I can palpate the bone which feels ragged and suspicious for osteomyelitis. Without surgery, these pressure sores will not heal because of the extent of the undermining. After an operative debridement, these undermined areas will be opened up to make wound care easier. That will dramatically increase the size of the ulcers. Local muscle flaps have been used already. With the potential large size of these ulcers after further excision and debridement, only a total thigh flap would provide enough soft tissue to close these large pressure sores. This procedure necessitates an amputation at the hip with a hip disarticulation. This would also take care of the left hip joint which is suspicious for osteomyelitis. Some of the bone would be sent to Pathology for analysis to evaluate for osteomyelitis. This would a last resort option. Certainly further wound care with Dakin's can be done. He is hesitant to proceed with this total thigh flap at this time. Told him that was fine and we can continue the wound care. A bigger issue is taking care of his wounds at home. He had two nurse's aids that helped with moving him, but now he only has one. There is concern that he is getting inadequate care at home due to lack of help. He wants to stay at home as long as possible. He thinks if he goes to a facility, the care would not be any better. One way of keeping him in the home, is to get a Palliative care consult since they have resources that can help him. We also recommended that he seek a second opinion about surgical options for his pressure sores. We will send him to [facility] wound center for the second opinion evaluation because of the affiliation with the [facility]. Patient voices understanding. Patient also needs a CT Pelvis because of the undermining to the left hip joint. Since he will be evaluated at [facility], they may want to do their own CT. If not done then, when he returns to the Wound Center in two weeks, we can order it then. Followup 2 weeks.
== END 2021-04-21 23:59 ==
LOC: WC 09:45
PROVIDERS: PCP Internal Medicine; Visit Provider Nurse Practitioner Family
DX: L89.224 Pressure ulcer of left hip, stage 4 (principal); L89.324 Pressure ulcer of left buttock, stage 4; E11.69 Type 2 diabetes mellitus with other specified complication; M86.68 Other chronic osteomyelitis, other site; G82.50 Quadriplegia, unspecified; E66.3 Overweight; Z68.25 Body mass index [BMI] 25.0-25.9, adult; Z79.82 Long term (current) use of aspirin; Z79.84 Long term (current) use of oral hypoglycemic drugs; Z79.899 Other long term (current) drug therapy; Z86.14 Personal history of Methicillin resistant Staphylococcus aureus infection; Z90.49 Acquired absence of other specified parts of digestive tract
CPT/HCPCS: 11043; 11046

== ENCOUNTER 2021-07-09 11:06 | Outpatient (CLI) | payer MEDICARE, OTHER, SELFPAY ==
[2021-07-09] MEDS: 0.9% NaCl VAD Flush IV (11:20)
== END 2021-07-09 23:59 | disposition home or self-care (01) ==
PROVIDERS: PCP Internal Medicine; Referring Provider Surgery; Visit Provider Surgery
DX: Z45.2 Encounter for adjustment and management of vascular access device (principal); G82.20 Paraplegia, unspecified; L89.90 Pressure ulcer of unspecified site, unspecified stage
CPT/HCPCS: 96523; A4216

== ENCOUNTER 2021-09-03 09:55 | Outpatient (CLI) | payer MEDICARE, OTHER, SELFPAY ==
[2021-09-03] MEDS: 0.9 % NaCl (Sterile) Posiflush 10 mL IV (10:02)
[2021-09-03] MEDS: 0.9% NaCl VAD Flush IV (10:11)
== END 2021-09-03 23:59 | disposition home or self-care (01) ==
LOC: MEDOUTP 09:55
PROVIDERS: PCP Internal Medicine; Referring Provider Surgery; Visit Provider Surgery
DX: Z45.2 Encounter for adjustment and management of vascular access device (principal); G82.20 Paraplegia, unspecified; Z87.2 Personal history of diseases of the skin and subcutaneous tissue
CPT/HCPCS: 96523; A4216

== ENCOUNTER → 2021-10-28 | Outpatient (CLI) | payer MEDICARE, OTHER, SELFPAY | END | disposition home or self-care (01) | LOC: MEDOUTP 10:55 | PROVIDERS: PCP Internal Medicine; Referring Provider Nurse Practitioner Family; Visit Provider Nurse Practitioner Family | DX: Z45.2 Encounter for adjustment and management of vascular access device (principal); G82.50 Quadriplegia, unspecified | CPT/HCPCS: 96523 ==

== ENCOUNTER → 2022-02-22 | Outpatient (CLI) | payer MEDICARE, OTHER, SELFPAY | END | disposition home or self-care (01) | LOC: MEDOUTP 13:57 | PROVIDERS: PCP Internal Medicine; Referring Provider Surgery; Visit Provider Surgery | DX: Z45.2 Encounter for adjustment and management of vascular access device (principal) | CPT/HCPCS: 96523; A4216 ==

== ENCOUNTER → 2022-07-08 | Outpatient (CLI) | payer MEDICARE, OTHER, SELFPAY ==
[2022-07-08 13:45] LABS: Allen Test Positive; Base Excess 1 mmol/L (-2 to +2); Blood Gas Specimen Type ART; O2 Delivery Device Room Air; PO2 82 mmHG (75-100); SITE L Radial; SO2 97 % (95-99); Total Carbon Dioxide 26 mmol/L; pCO2 35.8 mmHg (35-45); pH 7.45 (7.35-7.45)
--- NOTE | 2022-07-09 05:30 | SPIR_ITS ---
Spirometry PFT Testing Spirometry PFT Testing: COMPLETE PULMONARY FUNCTION TEST INTERPRETATION Brief HPI: Patient is a 72-year-old male, currently under the care of Dr. Ledezma, who presents to [facility] for complete pulmonary function tests secondary to diagnosis of neuromuscular eval. Respiratory therapist reports good effort and reproducible results. Interpretation: Forced expiration spirometry shows a moderately severe large airways obstructive ventilatory defect with an FEV1 of 59% predicted. Bronchodilator testing was not completed. FVC is decreased despite appropriate exhalation, indicating possible concomitant restrictive ventilatory defect. Spirograms are of good quality and plateau slowly, indicating slowly emptying areas of the lungs. The respiratory flow volume loop shows decreased expiratory flow rates at all lung volumes consistent with airway obstruction. No previous pulmonary function tests were available for review. Impression: Moderately severe obstructive ventilatory defect with reduced FVC suggestive of possible concomitant restrictive ventilatory defect. Consider lung volumes if not obtained previously
== END | disposition home or self-care (01) ==
LOC: PSN 13:03
PROVIDERS: PCP Internal Medicine; Referring Provider Internal Medicine Critical Care Medicine; Visit Provider Internal Medicine Critical Care Medicine
DX: G82.50 Quadriplegia, unspecified (principal); G47.33 Obstructive sleep apnea (adult) (pediatric); R53.1 Weakness
CPT/HCPCS: 36600; 82803; 94010; 96523

== ENCOUNTER → 2022-08-24 | Outpatient (CLI) | payer MEDICARE, OTHER, SELFPAY | END | disposition home or self-care (01) | LOC: MEDOUTP 10:26 | PROVIDERS: PCP Internal Medicine; Referring Provider Surgery; Visit Provider Surgery | DX: Z45.2 Encounter for adjustment and management of vascular access device (principal); G82.20 Paraplegia, unspecified; Z87.2 Personal history of diseases of the skin and subcutaneous tissue | CPT/HCPCS: 96523; A4216 ==

== ENCOUNTER 2022-09-28 09:59 | Outpatient (CLI) | payer MEDICARE, OTHER, SELFPAY ==
[2022-09-28] MEDS: 0.9 % NaCl (Sterile) Posiflush 10 mL IV (10:05)
[2022-09-28] MEDS: 0.9% NaCl VAD Flush IV (10:12)
== END 2022-09-28 10:00 | disposition home or self-care (01) ==
LOC: MEDOUTP 09:59
PROVIDERS: PCP Internal Medicine; Referring Provider Surgery; Visit Provider Surgery
DX: L89.90 Pressure ulcer of unspecified site, unspecified stage (principal); G82.20 Paraplegia, unspecified
CPT/HCPCS: 96523; A4216

== ENCOUNTER 2022-11-09 10:50 | Outpatient (CLI) | payer MEDICARE, OTHER, SELFPAY ==
[2022-11-09] MEDS: 0.9 % NaCl (Sterile) Posiflush 10 mL IV (10:59)
== END 2022-11-09 10:51 | disposition home or self-care (01) ==
LOC: MEDOUTP 10:51
PROVIDERS: PCP Internal Medicine; Referring Provider Surgery; Visit Provider Surgery
DX: L89.90 Pressure ulcer of unspecified site, unspecified stage (principal)
CPT/HCPCS: 96523

== ENCOUNTER 2023-01-13 10:54 | Outpatient (CLI) | payer MEDICARE, OTHER, SELFPAY ==
[2023-01-13] MEDS: 0.9 % NaCl (Sterile) Posiflush 10 mL IV (11:01)
== END 2023-01-13 10:55 | disposition home or self-care (01) ==
LOC: MEDOUTP 10:54
PROVIDERS: PCP Internal Medicine; Referring Provider Surgery; Visit Provider Surgery
DX: L89.90 Pressure ulcer of unspecified site, unspecified stage (principal); G82.50 Quadriplegia, unspecified
CPT/HCPCS: 96523